=== PATIENT | female | born 1955 | race Caucasian/White ===

== ENCOUNTER 2020-07-21 16:20 | Outpatient (REF) | payer MEDICARE, BC, SELFPAY ==
[2020-07-21 17:34] LABS: Iron 128 mcg/dL (30-160); Percent Iron Saturation 38 % (15-50); Total Iron Binding Capacity 336 mcg/dL (228-428); Unsaturated Iron Binding 208 ug/dL
[2020-07-21 17:55] LABS: Ferritin 19 ng/mL (10-250); Vitamin D 25-OH Total 36.5 ng/mL (>30)
[2020-07-21 18:25] LABS: Folate > 20.0 ng/mL (> or = 4.0); Vitamin B12 560 pg/mL (200-900)
[2020-07-23 13:57] LABS: Immunoglobulin A 286 mg/dL (70-320)
[2020-07-23 15:26] LABS: Zinc 67 mcg/dL (60-130)
[2020-07-24 21:27] LABS: Transglutaminase Ab IgG 3 U/mL; Transglutaminase IgA 25 U/mL
[2020-07-25 13:06] LABS: Vitamin A 58 mcg/dL (38-98)
[2020-07-25 14:41] LABS: Gliadin Deamidated IgA Ab >100 Units; Gliadin Deamidated IgG Ab 94 Units
[2020-07-26 12:51] LABS: Vitamin B6 29.7 ng/mL (2.1-21.7)
[2020-07-26 14:02] LABS: Vitamin B1 20 nmol/L (8-30)
[2020-07-29 13:21] LABS: Endomysial IgA Antibody Positive (Negative)
[2020-07-29 13:47] LABS: Endomysial Titer 1:10 titer (<1:5)
[2020-07-30 22:32] LABS: Vitamin K1 191 pg/mL (130-1500)
== END 2020-07-21 16:21 | disposition home or self-care (01) ==
LOC: HO.LAB 16:20
PROVIDERS: PCP Internal Medicine; Visit Provider Internal Medicine Gastroenterology
DX: R19.7 Diarrhea, unspecified (principal)
CPT/HCPCS: 36415; 82306; 82607; 82728; 82746; 82784; 83516; 83540; 84207; 84425; 84590; 84597; 84630; 86255; 86256

== ENCOUNTER → 2020-07-22 08:54 | Outpatient (BNVA) | payer MEDICARE, BC, SELFPAY | PROVIDERS: PCP Internal Medicine; Referring Provider Internal Medicine; Visit Provider Internal Medicine Gastroenterology | DX: R19.7 Diarrhea, unspecified (principal); K90.0 Celiac disease; M81.8 Other osteoporosis without current pathological fracture; Z79.899 Other long term (current) drug therapy | CPT/HCPCS: 99212 ==

== ENCOUNTER 2020-07-25 10:48 | Outpatient (REF) | payer MEDICARE, BC, SELFPAY ==
[2020-07-25 12:28] LABS: Glucose Urine UA NEG (NEG); Leukocyte Esterase Urine NEG (NEG); Nitrite Urine NEG (NEG); PH 5.5 (5.0-8.0); Specific Gravity - Urine 1.025 (1.005-1.025); Urine Blood TRACE (NEG); Urine Ketones NEG (NEG); Urine Protein NEG (NEG-TRACE)
[2020-07-25 12:30] LABS: Appearance Urine CLEAR; Color Urine YELLOW
[2020-07-25 12:37] LABS: Alanine Aminotransferase 29 U/L (0-31); Albumin Level 4.2 g/dL (3.5-5.0); Alkaline Phosphatase 106 U/L (39-117); Anion Gap 14 (12-20); Aspartate Amino Transferase 28 U/L (5-31); Blood Urea Nitrogen 15 mg/dL (9-16); Calcium 9.1 mg/dL (8.4-10.2); Carbon Dioxide 29 mmol/L (22-29); Chloride 103 mmol/L (96-108); Cholesterol 195 mg/dL; Estimated Glomerular Filt Rate > 60; Glucose Random 100 mg/dL (60-115); HDL Cholesterol 69 mg/dL; LDL Cholesterol Calculated 115 mg/dl; Potassium 5.1 mmol/l (3.3-5.1); Sodium 141 mmol/L (135-145); Total Protein 7.3 g/dL (6.5-8.0); Triglycerides 56 mg/dL
[2020-07-25 12:41] LABS: RBC Urine 0 /HPF (0); Squamous Epithelial Cell Urine TRACE /LPF; WBC Urine 0 /HPF (0-4)
[2020-07-25 12:57] LABS: TSH reflex Free T4 2.02 mIU/mL (0.32-4.0)
[2020-07-25 13:02] LABS: Bilirubin Total < 0.2 mg/dL (0.0-1.0)
== END 2020-07-25 10:49 | disposition home or self-care (01) ==
LOC: HO.LAB 10:48
PROVIDERS: PCP Internal Medicine; Visit Provider Internal Medicine
DX: E78.00 Pure hypercholesterolemia, unspecified (principal); E66.9 Obesity, unspecified; R35.0 Frequency of micturition
CPT/HCPCS: 80053; 80061; 81001; 84443

== ENCOUNTER 2020-08-18 12:47 | Outpatient (REF) | payer MEDICARE, BC, SELFPAY ==
--- NOTE | 2020-08-18 12:51 | MM_ITS ---
EXAMINATION: BONE DENSITOMETRY CLINICAL INDICATION: Other osteoporosis without current pathological fracture. COMPARISON: None (current study represents initial baseline exam). TECHNIQUE: Using a [employer] DXA System (software version: 13.1) manufactured by [employer], dual-energy x-ray absorptiometry was performed of the lumbar spine and left hip. The images are of good technical quality. Summary results are attached. FINDINGS: AP SPINE L1-L4: BMD 1.194 g/cm2, Z-score 0.9, T-score 0.1, normal. LEFT FEMUR, NECK: BMD 0.843 g/cm2, Z-score -0.4, T-score -1.4, osteopenia. LEFT FEMUR, TOTAL: BMD 1.029 g/cm2, Z-score 0.8, T-score 0.2, normal. IDENTIFIED RISK FACTORS: Secondary osteoporosis, menopause, hysterectomy, bilateral oophorectomy. HISTORY OF FRACTURE: None listed. MEDICATIONS: Calcium supplements or multivitamin, vitamin D. MM/XR DEXA axial skeleton IMPRESSION: 1. DIAGNOSIS: Osteopenia based on the lowest T-score value of -1.4 in the femoral neck applying World Health Organization criteria. 2. 10-YEAR FRACTURE RISK PREDICTION, FRAX: Major osteoporotic fracture (clinical spine, forearm, hip or shoulder) 7.8%. Hip fracture 0.7%. 3. Treatment Recommendations: NOF guidelines recommend consideration for treatment in postmenopausal women and men age 50 and older presenting with the following: -A hip or vertebral (clinical or morphometric) fracture. -T-score less than or equal to -2.5 at the femoral neck or spine after appropriate evaluation to exclude secondary causes. -Low bone mass at the hip or spine and a 10-year fracture probability by FRAX of greater than or equal to 3% for hip fracture or greater than or equal to 20% for major osteoporotic fracture based on the [place] adapted WHO algorithm. 4. Other Recommendations: All treatment decisions require clinical judgment and consideration of individual patient factors, including patient preferences, comorbidities, previous drug use, risk factors not captured in the FRAX model (e.g. frailty, falls, vitamin D deficiency, increased bone turnover, interval significant decline in bone density) and possible under or overestimation of fracture risk by FRAX. Additional medical evaluation for secondary cause of low bone mineral density may be appropriate. FUTURE SCAN RECOMMENDATION: People with diagnosed cases of osteoporosis or at high risk for fracture should have regular bone mineral density tests. For patients eligible for Medicare, routine testing is allowed once every 2 years. The testing frequency can be increased to one year for patients who have rapidly progressing disease, those who are receiving or discontinuing medical therapy to restore bone mass, or have additional risk factors.
[2020-08-18 15:20] LABS: Alanine Aminotransferase 22 U/L (0-31); Alkaline Phosphatase 104 U/L (39-117); Anion Gap 13 (12-20); Aspartate Amino Transferase 22 U/L (5-31); Bilirubin Total 0.4 mg/dL (0.0-1.0); Blood Urea Nitrogen 8 mg/dL (9-16); Calcium 8.7 mg/dL (8.4-10.2); Carbon Dioxide 32 mmol/L (22-29); Chloride 101 mmol/L (96-108); Cholesterol 206 mg/dL; Estimated Glomerular Filt Rate > 60; Glucose Fasting 78 mg/dL (60-99); HDL Cholesterol 78 mg/dL; LDL Cholesterol Calculated 114 mg/dl; Potassium 4.6 mmol/l (3.3-5.1); Sodium 141 mmol/L (135-145); Total Protein 6.9 g/dL (6.5-8.0); Triglycerides 70 mg/dL
== END 2020-08-18 12:48 | disposition home or self-care (01) ==
LOC: HO.MAMMO 12:47
PROVIDERS: PCP Internal Medicine; Visit Provider Internal Medicine
DX: M81.8 Other osteoporosis without current pathological fracture (principal); E78.00 Pure hypercholesterolemia, unspecified; Z78.0 Asymptomatic menopausal state
CPT/HCPCS: 77080; 80053; 80061

== ENCOUNTER → 2020-11-01 14:07 | Outpatient (BNVA) | payer MEDICARE, BC, SELFPAY | PROVIDERS: PCP Internal Medicine; Visit Provider Internal Medicine Gastroenterology | DX: K90.0 Celiac disease (principal) | CPT/HCPCS: Q3014 ==

== ENCOUNTER 2020-12-26 11:05 | Outpatient (REF) | payer MEDICARE, BC, SELFPAY ==
--- NOTE | ~2020-12-26 | MM_ITS ---
EXAMINATION: MM SCREENING DIGITAL BREAST TOMOSYNTHESIS, BILATERAL CLINICAL INFORMATION: Screening. Asymptomatic. The lifetime risk of breast cancer based on the Tyrer-Cuzick Model is 6%. COMPARISON: Mammography: 12/21/2019 TECHNIQUE: Digital breast tomosynthesis is performed in both the craniocaudal and mediolateral oblique views along with computer-aided detection (CAD). Synthesized 2D images are generated from the tomosynthesis. FINDINGS: There are scattered areas of fibroglandular density (ACR BI-RADS breast composition Category b). There are no significant masses, abnormal calcifications, or other abnormalities. Parenchymal pattern is similar to prior exam. The skin contours are smooth. MM/MM tomosynthesis screening BI IMPRESSION: No mammographic evidence of malignancy. ASSESSMENT: BI-RADS 1: Negative RECOMMENDATION: Routine annual mammography screening. This patient's information was entered into a reminder system with a target due date for their next mammogram.
== END 2020-12-26 11:06 | disposition home or self-care (01) ==
LOC: HO.MAMMO 11:05
PROVIDERS: Visit Provider Internal Medicine
DX: Z12.31 Encounter for screening mammogram for malignant neoplasm of breast (principal)
CPT/HCPCS: 77063; 77067

== ENCOUNTER → 2021-01-24 14:59 | Outpatient (BNVA) | payer MEDICARE, BC, SELFPAY | PROVIDERS: PCP Internal Medicine; Visit Provider Internal Medicine Gastroenterology | DX: Z13.89 Encounter for screening for other disorder (principal) | CPT/HCPCS: Q3014 ==

== ENCOUNTER 2021-05-27 15:29 | Outpatient (REF) | payer MEDICARE, BC, SELFPAY | END 2021-05-27 15:30 | disposition home or self-care (01) | LOC: HO.LNP 15:29 | PROVIDERS: Visit Provider Physician Assistant | DX: J02.9 Acute pharyngitis, unspecified (principal); Z20.822 Contact with and (suspected) exposure to COVID-19 | CPT/HCPCS: U0003; U0005 ==

== ENCOUNTER 2021-06-09 10:04 | Outpatient (REF) | payer MEDICARE, BC, SELFPAY ==
[2021-06-09 10:59] LABS: MANUAL DIFF FLAG NO
[2021-06-09 11:10] LABS: Basophils Absolute Auto 0.1 X10*3/uL (0.0-0.2); Basophils Percent Auto 0.8 % (0-2); Eosinophils Absolute Auto 0.2 X10*3/uL (0.0-0.4); Hematocrit 39.7 % (37-47); Imm Gran Abs Auto 0.01 X10*3/uL (0.00-0.03); Imm Gran Pct Auto 0.2 % (0.0-0.4); Lymphocytes Absolute Auto 2.3 X10*3/uL (1.2-4.9); Lymphocytes Percent Auto 38.5 % (20-40); Mean Corpuscular HGB Conc 32.7 g/dl (31.0-35.0); Mean Corpuscular Hemoglobin 29.7 pg (27.0-33.0); Mean Corpuscular Volume 90.8 fL (80-98); Mean Platelet Volume 9.5 fL (9.4-12.3); Monocytes Absolute Auto 0.5 X10*3/uL (0.1-1.2); Monocytes Percent Auto 7.7 % (2-11); Neutrophils Percent Auto 49.8 % (45-73); Platelet Count 412 X10*3/uL (160-400); Red Blood Count 4.37 X10*6/uL (4.20-5.50)
[2021-06-09 11:28] LABS: Alanine Aminotransferase 23 U/L (0-31); Albumin Level 4.1 g/dL (3.5-5.0); Alkaline Phosphatase 113 U/L (39-117); Anion Gap 13 (12-20); Aspartate Amino Transferase 30 U/L (5-31); Bilirubin Total 0.3 mg/dL (0.0-1.0); Blood Urea Nitrogen 9 mg/dL (9-16); Calcium 9.4 mg/dL (8.4-10.2); Carbon Dioxide 27 mmol/L (22-29); Chloride 104 mmol/L (96-108); Cholesterol 175 mg/dL; Estimated Glomerular Filt Rate > 60; Glucose Fasting 105 mg/dL (60-99); HDL Cholesterol 65 mg/dL; LDL Cholesterol Calculated 98 mg/dl; Potassium 4.6 mmol/L (3.3-5.1); Sodium 139 mmol/L (135-145); Total Protein 6.9 g/dL (6.5-8.0); Triglycerides 62 mg/dL
[2021-06-09 11:50] LABS: Appearance Urine CLEAR; Color Urine YELLOW; Glucose Urine UA NEG (NEG); Leukocyte Esterase Urine NEG (NEG); Nitrite Urine NEG (NEG); Urine Blood NEG (NEG); Urine Ketones NEG (NEG); Urine Protein NEG (NEG-TRACE)
[2021-06-09 12:18] LABS: Erythrocyte Sedimentation Rate 33 MM/HR (0-20)
[2021-06-14 14:11] LABS: Transglutaminase Ab IgG 1 U/mL; Transglutaminase IgA 5 U/mL
[2021-06-14 16:07] LABS: Gliadin Deamidated IgA Ab 56 Units; Gliadin Deamidated IgG Ab 53 Units
[2021-06-14 22:27] LABS: Endomysial IgA Antibody Negative (Negative)
== END 2021-06-09 10:05 | disposition home or self-care (01) ==
LOC: HO.LAB 10:04
PROVIDERS: Absent Provider Internal Medicine; PCP Internal Medicine; Visit Provider Internal Medicine Gastroenterology
DX: K90.0 Celiac disease (principal); I10 Essential (primary) hypertension; M79.7 Fibromyalgia; K29.70 Gastritis, unspecified, without bleeding; E78.00 Pure hypercholesterolemia, unspecified; E66.9 Obesity, unspecified
CPT/HCPCS: 36415; 80053; 80061; 81003; 83516; 84443; 85025; 85652; 86255; 86256

== ENCOUNTER 2021-06-18 10:49 | Emergency (ER) | payer MEDICARE, BC, SELFPAY ==
--- NOTE | ~2021-06-18 | XR_ITS ---
EXAMINATION: XR ANKLE, LEFT CLINICAL INFORMATION: Pain. COMPARISON: None TECHNIQUE: 4 views of the left ankle. FINDINGS: The ankle mortise and subtalar joints are normal. There is no visible acute fracture, dislocation or lytic process seen. There is moderate size calcaneal heel enthesophyte. There is metallic plate and screws traversing the first tarsometatarsal junction likely for an old healed fracture or fusion. There is moderate lateral malleolar soft tissue swelling. XR/XR ankle LT min 3V IMPRESSION: No acute fracture or dislocation. Moderate lateral malleolar soft tissue swelling suggestive of ligamentous injury.
[2021-06-18 11:05] VITALS: BP 131/59; PULSE 78; RESP 18; TEMP 36.8; O2SAT 99; BMI 38.0
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
== END 2021-06-18 12:40 | disposition home or self-care (01) ==
PROVIDERS: Emergency Provider Emergency Medicine; PCP Internal Medicine
DX: S93.402A Sprain of unspecified ligament of left ankle, initial encounter (principal); M25.572 Pain in left ankle and joints of left foot; X50.1XXA Overexertion from prolonged static or awkward postures, initial encounter; Y93.9 Activity, unspecified; Y92.9 Unspecified place or not applicable; Y99.9 Unspecified external cause status; Z79.899 Other long term (current) drug therapy
CPT/HCPCS: 73610; 99283

== ENCOUNTER → 2021-06-29 10:58 | Outpatient (BNVA) | payer MEDICARE, BC, SELFPAY | PROVIDERS: Visit Provider Physician Assistant | DX: S93.402A Sprain of unspecified ligament of left ankle, initial encounter (principal) | CPT/HCPCS: 99202 ==

== ENCOUNTER → 2021-07-04 10:05 | Outpatient (BNVA) | payer MEDICARE, BC, SELFPAY | PROVIDERS: Visit Provider Internal Medicine Gastroenterology | CPT/HCPCS: Q3014 ==

== ENCOUNTER 2021-08-18 17:12 | Outpatient (REF) | payer MEDICARE, BC, SELFPAY ==
[2021-08-18 18:56] LABS: Influenza A PCR NEGATIVE (Negative); Influenza B PCR NEGATIVE (Negative); Resp Syncy Virus RNA Qual PCR NEGATIVE (Negative); SARS COV2 PCR INHOUSE NEGATIVE (Negative)
== END 2021-08-18 17:13 | disposition home or self-care (01) ==
LOC: HO.LNP 17:12
PROVIDERS: Visit Provider Physician Assistant Medical
DX: Z20.822 Contact with and (suspected) exposure to COVID-19 (principal); J06.9 Acute upper respiratory infection, unspecified
CPT/HCPCS: 0241U

== ENCOUNTER 2021-11-13 14:30 | Outpatient (REF) | payer MEDICARE, BC, SELFPAY ==
--- NOTE | ~2021-11-13 | XR_ITS ---
EXAMINATION: XR SACROILIAC JOINTS CLINICAL INFORMATION: Bilateral SI joint pain. No injury. COMPARISON: None TECHNIQUE: 3 views of the sacroiliac joints FINDINGS: Marked degenerative spondylosis is present in the lower lumbar spine at L5-S1. There is mild osteoarthritis in the SI joints, right greater than left, with marginal osteophytes and subarticular sclerosis. No evidence of sacroiliitis. More minimal osteoarthritis at the hip joints. Pubic symphysis is unremarkable. No fractures. Soft tissues are unremarkable. XR/XR sacroiliac joint 1-2V IMPRESSION: 1. Mild osteoarthritis in the hips. No evidence of sacroiliitis. No acute osseous findings. 2. Marked degenerative spondylosis in the lower lumbar spine.
== END 2021-11-13 14:31 | disposition home or self-care (01) ==
LOC: HO.XRAY 14:30
PROVIDERS: PCP Internal Medicine; Visit Provider Internal Medicine
DX: M51.36 Other intervertebral disc degeneration, lumbar region (principal); M53.3 Sacrococcygeal disorders, not elsewhere classified
CPT/HCPCS: 72200; 99202

== ENCOUNTER → 2021-11-20 09:23 | Outpatient (BNVA) | payer MEDICARE, BC, SELFPAY | PROVIDERS: PCP Internal Medicine; Visit Provider Internal Medicine | DX: Z13.89 Encounter for screening for other disorder (principal) | CPT/HCPCS: Q3014 ==

== ENCOUNTER → 2021-11-24 09:32 | Outpatient (BNVA) | payer MEDICARE, BC, SELFPAY | PROVIDERS: PCP Internal Medicine; Visit Provider Internal Medicine Gastroenterology | DX: Z13.89 Encounter for screening for other disorder (principal) | CPT/HCPCS: Q3014 ==

== ENCOUNTER 2022-01-10 06:38 | Outpatient (REF) | payer MEDICARE, BC, SELFPAY ==
--- NOTE | ~2022-01-10 | FL_ITS ---
EXAMINATION: XR FLUOROSCOPY WITH IMAGES CLINICAL INFORMATION: Sacrococcygeal disorders. COMPARISON: None. TECHNIQUE: Fluoroscopy performed by Eleanor Shukla. Fluoroscopy time: 0.7 minutes DAP: 1.34 Gy-cm2 Images: 4 FINDINGS: There is a needle positioned in the inferior left and right SI joints. No contrast is seen. The SI joints are symmetrical. No bony abnormality. FL/FL guidance in treatment room IMPRESSION: Carpio positioned along the inferior aspect of bilateral SI joints. No visible acute fracture or dislocation seen.
== END 2022-01-10 06:39 | disposition home or self-care (01) ==
LOC: HO.RADIR 06:38
PROVIDERS: Visit Provider Internal Medicine
DX: M53.3 Sacrococcygeal disorders, not elsewhere classified (principal)
CPT/HCPCS: 27096; J1040

== ENCOUNTER 2022-02-02 14:00 | Outpatient (RCR) | payer MEDICARE, BC, SELFPAY ==
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
--- NOTE | 2022-02-02 15:04 | MHC.PT.DC ---
[facility] [place] Office [place] Office [place] Office [address] Ilia Choudhary [address] [phone] F: [phone] F: [phone] F: [phone] F: [phone] Physical Therapy Discharge Report Diagnosis: lumbar region disc disease, sacroccygeal disorder Date of Surgery: n/a Date of Evaluation: 11/23/21 Date of Discharge: 02/02/22 Treatments to Date: 13 Cancellations to Date: 5 No Shows to Date: 0 Discharge Status: Achieved Goals Improved Function Independent with HEP Discharge Summary: Laura has made great progress since beginning PT. She is have much less frequent bouts of pain at this time and has met almost all of her goals. She is very satisfied with her progress as well. She is independent in her HEP and has good compliance with it. She understands the importance of intermission coordinator continuation of the HEP to maintain benefits made thus far. Overall max benefits of PT have been provided and skilled PT is no longer indicated at this time. Pt is in agreement with d/c today. Electronically signed by: Kristina Almazan, PT, DPT, ATC Please sign and return to therapist. Thank you for your referral.
== END 2022-02-02 15:05 | disposition home or self-care (01) ==
LOC: HO.PTCHIC 14:00
PROVIDERS: PCP Internal Medicine; Visit Provider Internal Medicine
DX: M51.36 Other intervertebral disc degeneration, lumbar region (principal); M53.3 Sacrococcygeal disorders, not elsewhere classified
CPT/HCPCS: 97110; 97140; 97162; 97530

== ENCOUNTER → 2022-02-09 08:42 | Outpatient (BNVA) | payer MEDICARE, BC, SELFPAY | PROVIDERS: PCP Internal Medicine; Visit Provider Internal Medicine | DX: M53.3 Sacrococcygeal disorders, not elsewhere classified (principal); M70.61 Trochanteric bursitis, right hip | CPT/HCPCS: Q3014 ==

== ENCOUNTER 2022-02-14 13:23 | Outpatient (REF) | payer MEDICARE, BC, SELFPAY ==
--- NOTE | ~2022-02-14 | MM_ITS ---
EXAMINATION: MM SCREENING DIGITAL BREAST TOMOSYNTHESIS, BILATERAL CLINICAL INFORMATION: Screening. Asymptomatic. The lifetime risk of breast cancer based on the Tyrer-Cuzick Model is 6%. COMPARISON: Mammography: 12/26/2020, 12/21/2019 TECHNIQUE: Digital breast tomosynthesis is performed in both the craniocaudal and mediolateral oblique views along with computer-aided detection (CAD). Synthesized 2D images are generated from the tomosynthesis. FINDINGS: There are scattered areas of fibroglandular density (ACR BI-RADS breast composition Category b). The left breast parenchymal pattern is similar to prior studies. There is no interval mass or architectural abnormality. Neither breast shows abnormal calcifications. The bilateral axilla and skin contours are unremarkable. Right breast has a circumscribed 4 mm nodule periareolar 9:00 position, possibly a cyst. Patient will be recalled for targeted ultrasound. MM/MM tomosynthesis screening BI IMPRESSION: Right: -Circumscribed 4 mm nodule periareolar 9:00 position, possibly a cyst. Left: -No mammographic evidence of malignancy. ASSESSMENT: BI-RADS 0: Incomplete - Need Additional Imaging Evaluation RECOMMENDATION: 1. Targeted ultrasound right breast. 2. Radiology department staff will contact the patient for additional imaging. This patient's information was entered into a reminder system with a target due date for their next mammogram.
== END 2022-02-14 13:24 | disposition home or self-care (01) ==
LOC: HO.MAMMO 13:23
PROVIDERS: Visit Provider Internal Medicine
DX: Z12.31 Encounter for screening mammogram for malignant neoplasm of breast (principal)
CPT/HCPCS: 77063; 77067

== ENCOUNTER 2022-02-22 12:43 | Outpatient (REF) | payer MEDICARE, BC, SELFPAY ==
--- NOTE | ~2022-02-22 | US_ITS ---
EXAMINATION: US DIAGNOSTIC ULTRASOUND BREAST, RIGHT CLINICAL INFORMATION: Recall from screening for circumscribed 4 mm periareolar nodule 9:00 right breast. COMPARISON: Mammography 02/14/2022, 12/26/2020. TECHNIQUE: Ultrasound right breast is performed targeted to the lateral subareolar/periareolar region. Grayscale imaging and color Doppler are performed without and with harmonics. FINDINGS: There is incidental cyst 4 x 3 mm 9:00 periareolar region corresponding to the finding on mammography. There is increased through-transmission of sound. No associated color flow. There is no solid mass or architectural abnormality or focal duct ectasia. Results are discussed with the patient at time of visit. US/US breast RT limited IMPRESSION: Small cyst 9:00 periareolar right breast corresponding to finding on mammography. ASSESSMENT: BI-RADS 2: Benign RECOMMENDATION: Routine annual mammography screening. This patient's information was entered into a reminder system with a target due date for their next mammogram.
== END 2022-02-22 12:44 | disposition home or self-care (01) ==
LOC: HO.MAMMO 12:43
PROVIDERS: PCP Internal Medicine; Visit Provider Internal Medicine
DX: N63.15 Unspecified lump in the right breast, overlapping quadrants (principal)
CPT/HCPCS: 76642

== ENCOUNTER 2022-03-10 08:53 | Outpatient (REF) | payer MEDICARE, BC, SELFPAY ==
[2022-03-10 09:36] LABS: Basophils Percent Auto 0.6 % (0-2); Eosinophils Absolute Auto 0.2 X10*3/uL (0.0-0.4); Eosinophils Percent Auto 4.8 % (0-4); Hematocrit 39.2 % (37.0-47.0); Hemoglobin 12.7 g/dl (12.0-16.0); Imm Gran Abs Auto 0.01 X10*3/uL (0.00-0.03); Imm Gran Pct Auto 0.3 % (0.0-0.4); Lymphocytes Absolute Auto 2.4 X10*3/uL (1.2-4.9); MANUAL DIFF FLAG SCAN; Mean Corpuscular HGB Conc 32.4 g/dl (31.0-35.0); Mean Corpuscular Hemoglobin 28.9 pg (27.0-33.0); Mean Corpuscular Volume 89.3 fL (80.0-98.0); Monocytes Absolute Auto 0.3 X10*3/uL (0.1-1.2); Monocytes Percent Auto 7.1 % (2-11); Neutrophils Absolute Auto 0.6 x10*3/uL (2.0-8.3); Neutrophils Percent Auto 18.2 % (45-73); Platelet Count 313 X10*3/uL (160-400); Red Blood Count 4.39 X10*6/uL (4.20-5.50); Red Cell Distribution Width 14.2 % (11.0-16.0); SCAN SMEAR FLAG 1; White Blood Count 3.5 X10*3/uL (4.8-10.8)
[2022-03-10 09:44] LABS: Appearance Urine CLEAR; Color Urine YELLOW; Glucose Urine UA NEG (NEG); Leukocyte Esterase Urine NEG (NEG); Nitrite Urine NEG (NEG); PH 6.5 (5.0-8.0); Urine Blood NEG (NEG); Urine Ketones NEG (NEG); Urine Protein NEG (NEG-TRACE)
[2022-03-10 10:22] LABS: Erythrocyte Sedimentation Rate 28 MM/HR (0-20)
[2022-03-10 10:24] LABS: SLIDE REVIEW VERIFIED
[2022-03-10 10:28] LABS: Alanine Aminotransferase 24 U/L (0-31); Albumin Level 3.9 g/dL (3.5-5.0); Alkaline Phosphatase 106 U/L (39-117); Anion Gap 14 (12-20); Aspartate Amino Transferase 27 U/L (5-31); Bilirubin Total < 0.2 mg/dL (0.0-1.0); Blood Urea Nitrogen 7 mg/dL (9-16); Calcium 9.1 mg/dL (8.4-10.2); Carbon Dioxide 29 mmol/L (22-29); Chloride 105 mmol/L (96-108); Cholesterol 178 mg/dL; Estimated Glomerular Filt Rate > 60; Glucose Fasting 102 mg/dL (60-99); HDL Cholesterol 53 mg/dL; LDL Cholesterol Calculated 113 mg/dl; Potassium 4.2 mmol/L (3.3-5.1); Sodium 144 mmol/L (135-145); Total Protein 7.1 g/dL (6.5-8.0); Triglycerides 61 mg/dL
[2022-03-10 10:46] LABS: TSH reflex Free T4 2.95 uIU/mL (0.32-4.0); Vitamin D 25-OH Total 36.1 ng/mL (>30)
== END 2022-03-10 08:54 | disposition home or self-care (01) ==
LOC: HO.LAB 08:53
PROVIDERS: Absent Provider Internal Medicine; PCP Internal Medicine; Visit Provider Internal Medicine Gastroenterology
DX: M79.7 Fibromyalgia (principal); I10 Essential (primary) hypertension; E55.9 Vitamin D deficiency, unspecified; E78.00 Pure hypercholesterolemia, unspecified
CPT/HCPCS: 36415; 80053; 80061; 81003; 82306; 84443; 85025; 85652

== ENCOUNTER → 2022-03-12 11:10 | Outpatient (BNVA) | payer MEDICARE, BC, SELFPAY | PROVIDERS: PCP Internal Medicine; Visit Provider Internal Medicine Gastroenterology | DX: K90.0 Celiac disease (principal); Z90.49 Acquired absence of other specified parts of digestive tract | CPT/HCPCS: Q3014 ==

== ENCOUNTER 2022-04-04 06:24 | Outpatient (REF) | payer MEDICARE, BC, SELFPAY ==
--- NOTE | ~2022-04-04 | FL_ITS ---
EXAMINATION: XR FLUOROSCOPY WITH IMAGES CLINICAL INFORMATION: M70.61 - Trochanteric bursitis COMPARISON: None. TECHNIQUE: Fluoroscopy performed by pain management physician. Fluoroscopy time: 49 seconds Cumulative dose: 15.03 mGy Images: 3 FINDINGS: There is spinal needle overlying the left greater trochanter and spinal needle overlying the right greater trochanter. There is contrast in the overlying soft tissue planes. No visible vascular or intracapsular communication. FL/FL guidance in treatment room IMPRESSION: Fluoroscopy for pain management procedures.
== END 2022-04-04 06:25 | disposition home or self-care (01) ==
LOC: HO.RADIR 06:24
PROVIDERS: Visit Provider Internal Medicine
DX: M70.61 Trochanteric bursitis, right hip (principal); M70.62 Trochanteric bursitis, left hip
CPT/HCPCS: 20610; J1040

== ENCOUNTER → 2022-05-07 14:14 | Outpatient (BNVA) | payer MEDICARE, BC, SELFPAY | PROVIDERS: PCP Internal Medicine; Visit Provider Internal Medicine | DX: M53.3 Sacrococcygeal disorders, not elsewhere classified (principal) | CPT/HCPCS: 99212 ==

== ENCOUNTER 2022-06-20 06:32 | Outpatient (REF) | payer MEDICARE, BC, SELFPAY ==
--- NOTE | ~2022-06-20 | FL_ITS ---
EXAMINATION: XR FLUOROSCOPY WITH IMAGES CLINICAL INFORMATION: M53.3 - Sacrococcygeal disorders, not elsewhere classified COMPARISON: Radiographs SI joints 11/23/2021 TECHNIQUE: Fluoroscopy performed by Dr. Julio Weaver. Fluoroscopy time: 0.4 minutes. Cumulative Dose: 7.76 mGy. DAP: 0.552 Gy-cm2. Images: 4. FINDINGS: There are spinal needles overlying the lower left and mid to lower right SI joints. The lateral views show the needle tips to be at the level of the joint. There are mild degenerative changes as noted on prior plain films. FL/FL guidance in treatment room IMPRESSION: Fluoroscopy for pain management procedure.
== END 2022-06-20 06:33 | disposition home or self-care (01) ==
LOC: HO.RADIR 06:32
PROVIDERS: Visit Provider Internal Medicine
DX: M53.3 Sacrococcygeal disorders, not elsewhere classified (principal)
CPT/HCPCS: 27096; J1020; J1040

== ENCOUNTER → 2022-07-20 09:20 | Outpatient (BNVA) | payer MEDICARE, BC, SELFPAY | PROVIDERS: PCP Internal Medicine; Visit Provider Internal Medicine | DX: M53.3 Sacrococcygeal disorders, not elsewhere classified (principal) | CPT/HCPCS: Q3014 ==

== ENCOUNTER 2022-08-20 10:44 | Outpatient (REF) | payer MEDICARE, BC, SELFPAY ==
[2022-08-20 12:23] LABS: Alanine Aminotransferase 30 U/L (0-31); Albumin Level 4.2 g/dL (3.5-5.0); Alkaline Phosphatase 109 U/L (39-117); Anion Gap 17 (12-20); Aspartate Amino Transferase 25 U/L (5-31); Bilirubin Total 0.3 mg/dL (0.0-1.0); Blood Urea Nitrogen 12 mg/dL (9-16); Calcium 9.2 mg/dL (8.4-10.2); Carbon Dioxide 27 mmol/L (22-29); Chloride 103 mmol/L (96-108); Cholesterol 196 mg/dL; Estimated Glomerular Filt Rate > 60; Glucose Fasting 85 mg/dL (60-99); HDL Cholesterol 71 mg/dL; LDL Cholesterol Calculated 112 mg/dl; Potassium 4.5 mmol/L (3.3-5.1); Sodium 142 mmol/L (135-145); Total Protein 7.2 g/dL (6.5-8.0); Triglycerides 67 mg/dL
[2022-08-24 14:07] LABS: Gliadin Deamidated IgA Ab 23.1 U/mL; Gliadin Deamidated IgG Ab 14.4 U/mL; Transglutaminase Ab IgG <1.0 U/mL; Transglutaminase IgA 9.8 U/mL
== END 2022-08-20 10:45 | disposition home or self-care (01) ==
LOC: HO.LAB 10:44
PROVIDERS: Internal Medicine Gastroenterology; PCP Internal Medicine; Visit Provider Internal Medicine
DX: E78.00 Pure hypercholesterolemia, unspecified (principal); K90.0 Celiac disease; R10.33 Periumbilical pain; G89.29 Other chronic pain
CPT/HCPCS: 36415; 80053; 80061; 82306; 86258; 86364

== ENCOUNTER 2022-12-05 12:51 | Outpatient (REF) | payer MEDICARE, BC, SELFPAY ==
--- NOTE | 2022-12-05 | EMG_ITS ---
Please see scanned EMG / Nerve Conduction Report. MTDD
== END 2022-12-05 12:52 | disposition home or self-care (01) ==
LOC: HO.NEURO 12:51
PROVIDERS: PCP Internal Medicine; Visit Provider Internal Medicine
DX: R20.2 Paresthesia of skin (principal)
CPT/HCPCS: 95885; 95913

== ENCOUNTER → 2023-02-04 09:04 | Outpatient (BNVA) | payer MEDICARE, BC, SELFPAY | PROVIDERS: PCP Internal Medicine; Visit Provider Internal Medicine | DX: M53.3 Sacrococcygeal disorders, not elsewhere classified (principal); E78.00 Pure hypercholesterolemia, unspecified | CPT/HCPCS: 36415; 80053; 80061; 99212 ==

== ENCOUNTER 2023-02-04 09:33 | Outpatient (REF) | payer MEDICARE, BC, SELFPAY ==
[2023-02-04 12:42] LABS: Alanine Aminotransferase 22 U/L (0-31); Albumin Level 3.8 g/dL (3.5-5.0); Alkaline Phosphatase 80 U/L (39-117); Anion Gap 13 (12-20); Aspartate Amino Transferase 25 U/L (5-31); Bilirubin Total 0.3 mg/dL (0.0-1.0); Blood Urea Nitrogen 14 mg/dL (9-16); Carbon Dioxide 29 mmol/L (22-29); Chloride 105 mmol/L (96-108); Cholesterol 182 mg/dL; Estimated Glomerular Filt Rate > 60; Glucose Fasting 93 mg/dL (60-99); HDL Cholesterol 69 mg/dL; LDL Cholesterol Calculated 105 mg/dl; Potassium 4.5 mmol/L (3.3-5.1); Sodium 142 mmol/L (135-145); Total Protein 6.5 g/dL (6.5-8.0); Triglycerides 42 mg/dL
== END 2023-02-04 09:34 | disposition home or self-care (01) ==
LOC: HO.LAB 09:33
PROVIDERS: PCP Internal Medicine; Visit Provider Internal Medicine
DX: Z13.89 Encounter for screening for other disorder (principal)
CPT/HCPCS: 36415; 80053; 80061

== ENCOUNTER 2023-02-20 05:56 | Outpatient (REF) | payer MEDICARE, BC, SELFPAY ==
--- NOTE | ~2023-02-20 | FL_ITS ---
EXAMINATION: XR FLUOROSCOPY WITH IMAGES CLINICAL INFORMATION: M53.3 - Sacrococcygeal disorders, not elsewhere classified COMPARISON: Radiographs SI joints 11/13/2021. TECHNIQUE: Fluoroscopy Supervised By: Dr. Julio Weaver. Fluoroscopy Time: 0.2 minutes. Cumulative Dose: 4.46 mGy. DAP: 0.488 Gycm2. Images: 4. FINDINGS: There is a spinal needle overlying the mid to lower left SI joint and a spinal needle overlying the lower right SI joint. Lateral view show needle tips at level of the joints. There are degenerative disc changes again seen lumbosacral junction. FL/FL guidance in treatment room IMPRESSION: Fluoroscopy for pain management procedures.
== END 2023-02-20 05:57 | disposition home or self-care (01) ==
LOC: CF 05:56
PROVIDERS: Visit Provider Internal Medicine
DX: M53.3 Sacrococcygeal disorders, not elsewhere classified (principal)
CPT/HCPCS: J1040; J2795; Q9965

== ENCOUNTER 2023-02-20 07:25 | Outpatient (REF) | payer MEDICARE, BC, SELFPAY ==
--- NOTE | ~2023-02-20 | MM_ITS ---
EXAMINATION: MM SCREENING DIGITAL BREAST TOMOSYNTHESIS, BILATERAL CLINICAL INFORMATION: Screening. Asymptomatic. The lifetime risk of breast cancer based on the Tyrer-Cuzick Model is 4.1%. COMPARISON: Mammography: 02/22/2022 and studies dating back to 12/21/2019. TECHNIQUE: Digital breast tomosynthesis is performed in both the craniocaudal and mediolateral oblique views along with computer-aided detection (CAD). Synthesized 2D images are generated from the tomosynthesis. FINDINGS: There are scattered areas of fibroglandular density (ACR BI-RADS breast composition Category b). There are no new significant masses, abnormal calcifications, or other abnormalities. There is waxing and waning of some circumscribed densities about the right breast with ultrasound previously demonstrating one of these to represent a cyst and the other circumscribed densities also likely represent cysts. No new abnormal dominant mass or suspicious grouping of microcalcifications identified. MM/MM tomosynthesis screening BI IMPRESSION: No significant change. ASSESSMENT: BI-RADS 2: Benign. RECOMMENDATION: Routine annual mammography screening. This patient's information was entered into a reminder system with a target due date for their next mammogram.
== END 2023-02-20 07:26 | disposition home or self-care (01) ==
LOC: HO.MAMMO 07:25
PROVIDERS: PCP Internal Medicine; Visit Provider Internal Medicine
DX: Z12.31 Encounter for screening mammogram for malignant neoplasm of breast (principal); M53.3 Sacrococcygeal disorders, not elsewhere classified
CPT/HCPCS: 27096; 77063; 77067; J1040; J2795; Q9965

== ENCOUNTER → 2023-04-05 10:14 | Outpatient (BNVA) | payer MEDICARE, BC, SELFPAY | PROVIDERS: PCP Internal Medicine; Visit Provider Internal Medicine | DX: M79.18 Myalgia, other site (principal); M53.3 Sacrococcygeal disorders, not elsewhere classified; M43.16 Spondylolisthesis, lumbar region; M51.36 Other intervertebral disc degeneration, lumbar region | CPT/HCPCS: 20553; 99212; J2795 ==

== ENCOUNTER 2023-05-09 18:05 | Outpatient (REF) | payer MEDICARE, BC, SELFPAY ==
--- NOTE | ~2023-05-09 | MR_ITS ---
EXAMINATION: MR LUMBAR SPINE WITHOUT CONTRAST CLINICAL INFORMATION: Disc degeneration COMPARISON: MRI lumbar spine 09/24/2019 TECHNIQUE: MRI of the lumbar spine was obtained using routine sequences without contrast. FINDINGS: Normal lumbar lordosis is preserved. Stable 6 mm grade 1-2 anterolisthesis at L5-S1 and mild grade 1 anterolisthesis at L4-L5. Severely attenuated bilateral L5 pars interarticularis with suspected chronic pars defects that would be better assessed on CT. Vertebral body heights are maintained. There is no suspicious osseous lesion. Stable severe disc height loss at L5-S1 with new fluid signal intensity in the disc space with chronic opposing osseous remodeling/Schmorl's nodes and mixed type I and II Modic endplate changes at this level. There is stable mild to moderate L4-L5 and L3-L4 disc height loss .There are multilevel degenerative changes with level by level detail as follows: L1-L2: No spinal canal or neural foraminal stenosis. L2-L3: No spinal canal or neural foraminal stenosis. L3-L4: Shallow annular disc bulge and mild bilateral facet arthrosis. No spinal canal stenosis. Stable minimal right greater than left neural foraminal encroachment.. L4-L5: Uncovered posterior disc with decreased annular disc bulge and resolved broad-based left paracentral disc protrusion. Advanced bilateral facet arthrosis with ligamentum flavum thickening and trace bilateral facet joint effusions. Resolved spinal canal and subarticular show narrowing. Stable mild right greater than left neural foraminal encroachment. L5-S1: Posterior disc material with osteophytic ridging and advanced bilateral facet arthrosis with ligamentum flavum thickening. No spinal canal stenosis. Stable moderate to severe bilateral neural foraminal stenosis with impingement upon the exiting bilateral L5 nerve roots and contact along the extraforaminal segments from lateral disc osteophytes. The conus medullaris terminates at the level of L1. Sacral Tarlov's cysts and/or meningoceles at S2. The distal spinal cord is normal in appearance. No epidural fluid collection, hematoma, or mass. There is mild fatty atrophy of the paraspinal musculature. Colonic diverticulosis. Prominence of the common bile duct up to 8.3 mm with mild prominence of the central intrahepatic bile ducts. Query abrupt cut off of the mid to lower common bile duct versus artifact. The abdominal aorta is of normal contour and caliber. MR/MR lumbar spine wo con IMPRESSION: 1. Stable grade 1-2 anterolisthesis at L5-S1 with suspected bilateral chronic L5 pars interarticularis defects which appeared better evaluated on CT. 2. Interval resolution of broad-based left paracentral disc protrusion at L4-L5 with resolved spinal canal and subarticular zone narrowing. 3. Additional lumbar spondylosis is stable. Notably, with moderate to severe bilateral neural foraminal stenosis at L5-S1 with impingement upon the exiting bilateral L5 nerve roots. 4. Prominence of the common bile duct with mild central intrahepatic bile ductal prominence could be within normal limits if there is a history of prior cholecystectomy. Query abrupt cut off of the mid to lower common bile duct versus artifact; obstructing distal CBD stone or lesion not excluded and can be correlated with LFTs and further assessed with contrast-enhanced MRCP as warranted.
== END 2023-05-09 18:06 | disposition home or self-care (01) ==
LOC: HO.MRI 18:05
PROVIDERS: PCP Internal Medicine; Visit Provider Internal Medicine
DX: M51.36 Other intervertebral disc degeneration, lumbar region (principal)
CPT/HCPCS: 72148

== ENCOUNTER 2023-05-09 18:42 | Outpatient (REF) | payer MEDICARE, BC, SELFPAY ==
--- NOTE | ~2023-05-09 | MR_ITS ---
EXAMINATION: MR BRAIN WITHOUT CONTRAST CLINICAL INFORMATION: Left hand dystonia COMPARISON: None TECHNIQUE: Multiplanar multisequence MR imaging of the brain was obtained without intravenous contrast. FINDINGS: There is no acute infarct on diffusion-weighted imaging. There is no intracranial hemorrhage on iron-sensitive imaging. No extra-axial collection or mass effect/herniation. There are several scattered foci of nonspecific supratentorial white matter T2/FLAIR signal abnormality. No hydrocephalus. The ventricles are normal in morphology and size. The major flow voids at the skull base are preserved. The midline structures are normal. The cerebellar tonsils are normally positioned. The craniocervical junction is normal. Marrow signal is within normal limits. The visualized soft tissues are without significant abnormality. No signal abnormality within the paranasal sinuses or within the mastoid air cells. MR/MR head/brain wo con IMPRESSION: Unremarkable noncontrast MRI of the brain.
== END 2023-05-09 18:43 | disposition home or self-care (01) ==
LOC: HO.MRI 18:42
PROVIDERS: PCP Internal Medicine; Visit Provider Psychiatry & Neurology Neurology
DX: G24.8 Other dystonia (principal)
CPT/HCPCS: 70551; 72148

== ENCOUNTER 2023-06-19 14:17 | Outpatient (AMB) | payer MEDICARE, BC, SELFPAY ==
[2023-06-19 14:26] VITALS: BP 118/72; BMI 35.7
--- NOTE | 2023-06-19 14:26 | A.OFFVIS_ITS ---
Intake Vital Signs 06/19/23 14:26 Height 5 ft 2 in Weight 195 lb BMI 35.7 BP 118/72 Blood Pressure Location Lt brachial Position Sitting Intake Visit Reasons: [facility] Intake Note: Patient here for a subsequent annual wellness visit Medical Records Coder Required: No Accompanied by: Self / Same As Patient Allergies Sulfa (Sulfonamide Antibiotics) [SULFA (SULFONAMIDE ANTIBIOTICS)] Allergy (Severe, Verified 06/19/23 15:30) ANAPHYLAXIS Penicillins [PENICILLINS] Allergy (Mild, Verified 06/19/23 15:30) RASH latex Adverse Reaction (Severe, Verified 06/19/23 15:30) Rash Medication List - Last Reconciled 06/19/23 by Osmany Browning MD albuterol sulfate 90 mcg/actuation 1 inh inhalation QID PRN atorvastatin 10 mg PO DAILY azithromycin For 250 mg dose pack: take 500 mg today (day 1), then 250 mg for 4 days (days 2-5) PO 5 days benzonatate 200 mg PO TID PRN wnitzxokiq-yryjeeb-becdzerd 50-325-40 mg 1 cap PO Q6-8H PRN 30 days fluticasone propionate 50 mcg/actuation 1 spray intranasal DAILY hydrocortisone 2.5% 1 appl topical BID PRN lidocaine 5% 1 patch topical DAILY lorazepam 0.5 mg PO DAILY PRN 30 days metaxalone 800 mg PO TID PRN 30 days olopatadine 0.1% 1 drp ophthalmic (eye) BID PRN prednisone 50 mg PO DAILY 5 days pregabalin 75 mg PO BID 30 days ropinirole 1 mg PO BEDTIME 90 days sumatriptan succinate 100 mg PO DAILY PRN 30 days tramadol 100 mg (2 x 50 mg) PO Q6H PRN 48 days venlafaxine ER 150 mg PO DAILY zolpidem ER 12.5 mg PO BEDTIME PRN 30 days HPI SAWV HPI Details Patient comes in today for her Medicare Annual Wellness Exam States that she currently feels okay Is waiting for Dr. Lanza to schedule her appointment for botox injection - states that he is planning to start her on botox injections into her left arm muscles to help with her arm symptoms (dystonia) She was sent for a brain MRI to r/o a basal ganglia infarct last month - MRI came out unremarkable She is currently still experiencing recurrent low back pain - a lumbar spine MRI done last month showed no new changes in her lumbar spine DDD She denies any headaches or dizziness Denies any chest pains, no SOB No nausea/vomiting, no abdominal pain No change in bowel habits noted IPPE/AWV: c/o of Annual Wellness Visit, subsequent visit. Medical / Social History Reviewed Past Medical History Yes . [facility] of Care / Care Team list updated Yes . Surgical/Hospitalization History Yes . Current Medications (including OTC and supplements) Yes . Family History Yes . Tobacco Control form Yes . AUDIT-C (Alcohol use) form Yes . Illicit drug use in Social History Yes . Current diagnosis of depression? No Appropriate PHQ2/PHQ9 completed Yes . Data entered by Instructional Services Librarian and reviewed by provider Home Safety Throw rugs? No Grab bars? No Raised toilet seats? No Working smoke detectors? Yes Working carbon monoxide detectors? Yes Data entered by Instructional Services Librarian and reviewed by provider Activities of Daily Living (ADLs) Difficulty bathing or showering? No Difficulty dressing? No Difficulty using the toilet? No Difficulty getting in and out of bed? No Difficulty walking? No Receives help from another person with any of the above tasks? No Instrumental Activities of Daily Living (IADLs) Uses the telephone without help Gets to places out of walking distance without help Goes shopping for groceries without help Prepares own meals without help Does own minor home maintenance without help Does own laundry without help Does own housework without help Manages own money without help Currently takes medications? Yes Takes medication without help End-of-Life Planning Discussed advance directive Yes Advance directive on file Discussed wishes expressed in advance directive agreed to following patient's wishes Fall Risk: Fall History Have you had any falls with injury in the past year? No . Have you had two or more falls in the past year? No . Fall Risk Assessment: No falls in the past year . HRA filled out by the patient, reviewed by Provider and scanned. [facility] Medical History Sacroiliac dysfunction Migraine Burn injury Sinusitis chronic, frontal Osteopenia Obesity (BMI 30-39.9) Major depression, recurrent Insomnia Primary osteoarthritis Urinary frequency Mitral valve prolapse Allergic rhinitis Gastritis Pure hypercholesterolemia Restless leg syndrome Cervicalgia Lumbar degenerative disc disease Fibromyalgia Surgical History History of carpal tunnel release History of bunionectomy S/P GINGER-BSO (total abdominal hysterectomy and bilateral salpingo-oophorectomy) History of repair of rotator cuff History of arthroscopy of both knees History of hysterectomy Hx of cholecystectomy Hx of endoscopy History of colonoscopy Family History Father History of cancer Mother History of cancer History of high blood pressure Hx of diabetes mellitus Social History Household Members Other:: DAUGHTER AND HER FAMILY Housing: House Alcohol intake: current Alcohol intake frequency: a few times a week Patient Tobacco Use Status: Never used Tobacco e-Cigarette/Vaping Use: Never Used Second Hand Smoke Exposure: Yes service: No Current occupational status: retired Cognitive needs: No Hearing needs: No Vision needs: Yes Questionnaire Medicare Wellness Checkup [age] What gender do you identify with?: female During the past 4 weeks, how much have you been bothered by emotional problems such as feeling anxious, depressed, irritable, sad or downhearted, and blue?: slightly During the past 4 weeks, has your physical & emotional health limited your social activities with family, friends, neighbors, or groups?: not at all During the past 4 weeks, how much bodily pain have you generally had?: moderate pain During the past 4 weeks, was someone available to help you if you needed & wanted help?: yes, some During the past 4 weeks, what was the hardest physical activity you could do for at least 2 minutes?: light Can you get to places out of walking distance without help? (For eg., can you travel alone on buses, taxis or drive your car?): Yes Can you go shopping for groceries or clothes without someone's help?: Yes Can you prepare your own meals?: Yes Can you do your housework without help?: Yes Because of any health problems, do you need the help of another person with your personal care needs such as eating, bathing, dressing or getting around the house?: No Can you handle your own money without help?: Yes During the past 4 weeks, how would you rate your health in general?: good During the past 4 weeks how have things been going for you?: pretty well Are you having difficulties driving your car?: no Do you always fasten your seat belt when you are in a car?: yes, usually During past 4 weeks, have you been bothered by the following: never: Sexual problems?, Teeth or denture problems? and Problems using the telephone?, seldom: Falling or dizzy when standing up and Trouble eating well? and sometimes: Tiredness or fatigue? Have you fallen 2 or more times in the past year?: No Are you afraid of falling?: Yes Are you a smoker?: no During the past 4 weeks, how many drinks of wine, beer, or other alcoholic beverages did you have?: 2-5 drinks per week Do you exercise for about 20 minutes 3 or more times a week?: no, I usually do not exercise this much Have you been given information to help with the following?: no: Hazards in your house that might hurt you? and no: Keeping track of your medications? How often do you have trouble taking medicines the way you have been told to take them?: I always take medicine as prescribed How confident are you that you can control & manage most of your health problems?: very confident What is your race?: White Mini Mental State Exam (MMSE) Orientation What is the (year) (season) (date) (day) (month)?: year, season, date, day and month Where are we (state) (county) (town or city) (hospital) (floor)?: state, county, town or city, hospital/clinic and floor Score Score: 10 Activity of Daily Living Bathing - sponge bath, tub bath or shower: receives no assistance (gets in/out by self, if usual bathing means Dressing - getting clothes from closets & drawers, including inner/outer garments & fasteners.: gets clothes & gets completely dressed without help Toileting - going to the 'toilet room' for urine/bowel elimination & cleaning self/arranging clothes: goes to toilet room, cleans self, arranges clothes without help Transfer: moves in & out of bed and chair without help (may use support object) Continence: controls urination/bowel movements completely by self Feeding: feeds self without help Total Score: 0 Information obtained from: patient Using telephone: independent Traveling: independent Shopping: independent Preparing meals: independent Housework: independent Taking medicine: independent Managing money: independent PHQ-9 Over the last 2 weeks, how often have you been bothered by any of the following problems? 1. Little interest or pleasure in doing things: several days 2. Feeling down, depressed, or hopeless: not at all 3. Trouble falling or staying asleep, or sleeping too much: several days 4. Feeling tired or having little energy: several days 5. Poor appetite or overeating: not at all 6. Feeling bad about yourself - or that you are a failure or have let yourself or your family down: not at all 7. Trouble concentrating on things, such as reading the newspaper or watching television: more than half the days 8. Moving or speaking so slowly that other people could have noticed. Or the opposite - being so fidgety or restless that you have been moving around a lot more than usual: not at all 9. Thoughts that you would be better off or of hurting yourself in some way: not at all Total score: 5 Depression Screening Interpretation: Positive Depression Screening Follow-up: Existing condition and In treatment 47920 - PHQ-9 Billing: Yes Source: Developed by Drs. Elroy Roberts, Sunni Amaro, Yadiel Maya and colleagues, with an educational og from [employer]. Review of Systems Const Reports fatigue, Denies fever(s) and Denies headache(s) ENT Denies dysphagia, Denies dizziness, Denies otalgia, Denies headache(s), Reports neck pain, Denies odynophagia and Denies sore throat Card Denies chest pain, Denies palpitations and Denies dyspnea Resp Denies cough and Denies dyspnea GI Denies abdominal pain, Denies constipation, Denies dysphagia, Denies heartburn, Denies diarrhea, Denies nausea, Denies odynophagia and Denies vomiting Denies difficulty voiding, Denies nocturia and Denies dysuria Musc Details: (+) recurrent muscle contracture/torsion of the left hand Reports back pain (chronic), Reports arthralgias (involving multiple joints) and Reports neck pain Neuro Denies dizziness, Denies headache(s), Reports paresthesias (in both hands, on and off) and Reports tremor(s) (on and off in the left hand) Endo Reports fatigue and Denies palpitations Physical Exam Vital Signs: Last Vital Signs BP 118/72 06/19/23 14:26 BMI result Body Mass Index 35.7 IPPE/AWV: Balance Romberg Yes . Tandem walk Yes . Walk and Turn Yes . Rise from sit to stand Yes . Vision Corrective lens No Vision screen pass Hearing Whisper test pass . Urinary incont. no. EKG Not clinically necessary. Const General: no acute distress and alert Orientation/consciousness: patient oriented x3 HEENT Ears: TM's normal bilaterally and EAC's normal Throat: Yes posterior oropharynx normal and Yes tonsils normal (no TP congestion noted) Neck Neck: Yes no lymphadenopathy and Yes tender (over the cervical spine and paraspinal areas bilaterally) Resp Auscultation: clear to auscultation bilaterally, no rales and no wheezes Cardio Rate: regular rate Rhythm: regular rhythm Heart sounds: no murmurs GI Palpation (GI): Soft to palpation, nontender and No hepatosplenomegaly present Back/Spine/Pelvis Thoracic/Lumbar Spine: paraspinal muscle tenderness bilaterally (over the cervical and thoracolumbar spine (diffuse)) and lumbar spinal tenderness Neuro General: patient oriented x3 Cognition (Neuro): normal cognition Extrem General: Yes no clubbing, cyanosis or edema Right upper extremity: shoulder/upper arm Details: tenderness (diffusely over the scapular area) Left upper extremity: shoulder/upper arm Details: tenderness (diffusely over the scapular areas) Psych Mental Status: mental status grossly normal Thought process: Normal thought process present Assessment & Plan Assessment & Plan (1) Medicare annual wellness visit, subsequent: Code(s): Z00.00 - Encounter for general adult medical examination without abnormal findings Plan: HRA form completed and discussed with patient; form will be scanned into patient's chart (2) Fibromyalgia: Code(s): M79.7 - Fibromyalgia Plan: Continue Pregabalin 75 mg BID Encouraged again to continue with regular exercises to help manage her fibromyalgia symptoms better (3) Lumbar degenerative disc disease: Comment: MRI of the lumbar spine done in September 2019 showed grade 1 degenerative anterolisthesis of L4 on L5 and L5 on S1, with severe disc height loss at L5-S1 with endplate changes. Facet arthrosis and degenerative disc changes are seen on multiple levels from L4-S1 Code(s): M51.36 - Other intervertebral disc degeneration, lumbar region Plan: Reinforced activity and weight-lifting restrictions Follow-up with [facility] Pain Management as scheduled Continue Tramadol 50 mg 2 tablets every 6 hours as needed, 30 days, (# 240 tablets) and Lidocaine patch 5% 1 patch for 12 hours daily as needed (4) Cervicalgia: Code(s): M54.2 - Cervicalgia Plan: Follow up with pain management as scheduled for continuing facet injection and pain management (5) Restless leg syndrome: Code(s): G25.81 - Restless legs syndrome Plan: Continue Ropinirole 1 mg Q HS (6) Migraine: Code(s): G43.909 - Migraine, unspecified, not intractable, without status migrainosus Qualifiers: Migraine type: unspecified Status migrainosus presence: without status migrainosus Intractability: not intractable Qualified Code(s): G43.909 - Migraine, unspecified, not intractable, without status migrainosus Plan: Stable - reinforced avoidance of migraine triggers Continue Emgality 120 mg injection once a month Continue Sumatriptan 100 mg once a day as needed and Fiorinal capsules 50-325-40 mg 1 capsule every 6-8 hours as needed Follow-up with neurology as scheduled (7) Pure hypercholesterolemia: Code(s): E78.00 - Pure hypercholesterolemia, unspecified Plan: Reinforced low-cholesterol diet Will recheck labs and fasting lipids for follow-up as scheduled next month (8) Gastritis: Code(s): K29.70 - Gastritis, unspecified, without bleeding Qualifiers: Gastritis type: unspecified gastritis Chronicity: unspecified Gastritis bleeding: without bleeding Qualified Code(s): K29.70 - Gastritis, unspecified, without bleeding Plan: EGD done back in 2019 revealed (+) gastric erythema, duodenal erosion with strictures; biopsies came back negative for malignancies Had repeat EGD with dilation of strictures done a couple of years ago, which showed some improvement in her findings Follow-up with GI as scheduled (9) Celiac disease/sprue: Code(s): K90.0 - Celiac disease Plan: Relates (+) Hx of celiac disease; labs done several months ago still showed the presence of anti-Gliadin and transglutaminase IgA antibodies consistent with celiac disease Reinforced gluten free diet Follow up with GI as scheduled (10) Allergic rhinitis: Code(s): J30.9 - Allergic rhinitis, unspecified Qualifiers: Allergic rhinitis trigger: unspecified Allergic rhinitis seasonality: unspecified Qualified Code(s): J30.9 - Allergic rhinitis, unspecified Plan: Continue Fluticasone 50 mcg nasal spray QD PRN (11) Mitral valve prolapse: Comment: Echocardiogram done in December 2019 showed (+) mild MVP, mild to moderate TR; LV systolic function is low normal with LVEF of around 50-55% Code(s): I34.1 - Nonrheumatic mitral (valve) prolapse Plan: Echocardiogram done in December 2019 showed (+) mild MVP, mild to moderate TR; LV systolic function is low normal with LVEF of around 50-55% Should consider rechecking her echo in a few months for follow up (12) Osteopenia: Code(s): M85.80 - Other specified disorders of bone density and structure, unspecified site Qualifiers: Osteopenia location: unspecified Qualified Code(s): M85.80 - Other specified disorders of bone density and structure, unspecified site Plan: BMD done in 2019) showed (+) osteopenia Patient advised to continue taking vitamin-D and calcium supplements and to try exercising regularly Will continue to monitor BMD every 2-3 years for follow-up - will order at her appt next month for follow up (13) Insomnia: Code(s): G47.00 - Insomnia, unspecified Qualifiers: Insomnia type: unspecified Qualified Code(s): G47.00 - Insomnia, unspecified Plan: Sleep hygiene reinforced Continue Zolpidem ER 12.5 mg once a day at bedtime (14) Major depression, recurrent: Code(s): F33.9 - Major depressive disorder, recurrent, unspecified Qualifiers: Active/Remission status: currently active Major depression episode severity: unspecified Qualified Code(s): F33.9 - Major depressive disorder, recurrent, unspecified Plan: Continue Venlafaxine ER 150 mg once a day (15) Obesity (BMI 30-39.9): Code(s): E66.9 - Obesity, unspecified Plan: Reinforced diet/exercise as tolerated/lose weight Plan Follow up as scheduled next month Quality Reporting (2019) Depression/Bipolar (159/160/161/177) PHQ-9: Total score: 5 Coding Level of Care Code Medicare Subsequent (G0439) Diagnoses Medicare annual wellness visit, subsequent Z00.00 Fibromyalgia M79.7 Lumbar degenerative disc disease M51.36 Cervicalgia M54.2 Restless leg syndrome G25.81 Migraine without status migrainosus, not intractable, unspecified migraine type G43.909 Migraine type: unspecified Status migrainosus presence: without status migrainosus Intractability: not intractable Pure hypercholesterolemia E78.00 Gastritis without bleeding, unspecified chronicity, unspecified gastritis type K29.70 Gastritis type: unspecified gastritis Chronicity: unspecified Gastritis bleeding: without bleeding Celiac disease/sprue K90.0 Allergic rhinitis, unspecified seasonality, unspecified trigger J30.9 Allergic rhinitis trigger: unspecified Allergic rhinitis seasonality: unspecified Mitral valve prolapse I34.1 Osteopenia, unspecified location M85.80 Osteopenia location: unspecified Insomnia, unspecified type G47.00 Insomnia type: unspecified Episode of recurrent major depressive disorder, unspecified depression episode severity F33.9 Active/Remission status: currently active Major depression episode severity: unspecified Obesity (BMI 30-39.9) E66.9
== END 2023-06-19 15:30 | disposition home or self-care (01) ==
PROVIDERS: PCP Internal Medicine; Visit Provider Internal Medicine
DX: Z00.00 Encounter for general adult medical examination without abnormal findings (principal); G43.909 Migraine, unspecified, not intractable, without status migrainosus; F33.9 Major depressive disorder, recurrent, unspecified; M79.7 Fibromyalgia; M51.36 Other intervertebral disc degeneration, lumbar region; M54.2 Cervicalgia; G25.81 Restless legs syndrome; E78.00 Pure hypercholesterolemia, unspecified; K29.70 Gastritis, unspecified, without bleeding; K90.0 Celiac disease; J30.9 Allergic rhinitis, unspecified; I34.1 Nonrheumatic mitral (valve) prolapse
CPT/HCPCS: G0439

== ENCOUNTER 2023-07-01 08:21 | Outpatient (REF) | payer MEDICARE, BC, SELFPAY ==
--- NOTE | ~2023-07-01 | XR_ITS ---
EXAMINATION: XR LUMBOSACRAL SPINE WITH OBLIQUES CLINICAL INFORMATION: Spondylolisthesis lumbar region COMPARISON: MRI lumbar spine 05/09/2023 [facility]. TECHNIQUE: 7 total views were obtained including AP, both oblique, and lateral views of the lumbar spine. Lateral view of the lumbosacral junction. FINDINGS: Surgical clips right upper quadrant of the abdomen. Facet arthritis in the lower lumbar spine. Degenerative changes in the imaged lower thoracic spine. Multilevel lumbar spondylosis. Severe degenerative changes at L5-S1 with obliteration of the joint space and subchondral sclerosis. Moderate to marked loss of disc space height at L4-L5 with degenerative changes. Mild loss of disc space height at L3-L4. Redemonstration of grade 1-2 anterolisthesis of L5 on S1 and mild grade 1 anterolisthesis of L4 on L5. XR/XR lumbar spine 6V w bending IMPRESSION: Multilevel degenerative changes advanced at L4-L5 and L5-S1. As previously noted appearance is concerning for spondylolysis at L5, which may better evaluated with CT scan.
[2023-07-01 09:28] LABS: MANUAL DIFF FLAG NO
[2023-07-01 09:51] LABS: Basophils Absolute Auto 0.1 X10*3/uL (0.0-0.2); Eosinophils Absolute Auto 0.3 X10*3/uL (0.0-0.4); Eosinophils Percent Auto 4.1 % (0-4); Hematocrit 41.8 % (37.0-47.0); Hemoglobin 13.6 g/dl (12.0-16.0); Imm Gran Abs Auto 0.01 X10*3/uL (0.00-0.03); Imm Gran Pct Auto 0.2 % (0.0-0.4); Lymphocytes Absolute Auto 3.1 X10*3/uL (1.2-4.9); Lymphocytes Percent Auto 49.9 % (20-40); Mean Corpuscular HGB Conc 32.5 g/dl (31.0-35.0); Mean Corpuscular Hemoglobin 30.6 pg (27.0-33.0); Mean Corpuscular Volume 93.9 fL (80.0-98.0); Mean Platelet Volume 9.6 fL (9.4-12.3); Monocytes Absolute Auto 0.4 X10*3/uL (0.1-1.2); Monocytes Percent Auto 7.2 % (2-11); Neutrophils Absolute Auto 2.3 x10*3/uL (2.0-8.3); Neutrophils Percent Auto 37.6 % (45-73); Platelet Count 350 X10*3/uL (160-400); Red Blood Count 4.45 X10*6/uL (4.20-5.50); Red Cell Distribution Width 13.2 % (11.0-16.0); White Blood Count 6.1 X10*3/uL (4.8-10.8)
[2023-07-01 10:39] LABS: Alanine Aminotransferase 41 U/L (0-31); Albumin Level 4.4 g/dL (3.5-5.0); Alkaline Phosphatase 103 U/L (39-117); Anion Gap 17 (12-20); Aspartate Amino Transferase 35 U/L (5-31); Bilirubin Total 0.3 mg/dL (0.0-1.0); Blood Urea Nitrogen 11 mg/dL (9-16); Calcium 9.6 mg/dL (8.4-10.2); Carbon Dioxide 26 mmol/L (22-29); Chloride 101 mmol/L (96-108); Cholesterol 180 mg/dL (<200); Estimated Glomerular Filt Rate > 60; Glucose Fasting 93 mg/dL (60-99); HDL Cholesterol 70 mg/dL (>40); LDL Cholesterol Calculated 101 mg/dL (<100); Potassium 4.2 mmol/L (3.3-5.1); Sodium 140 mmol/L (135-145); Total Protein 7.7 g/dL (6.5-8.0); Triglycerides 47 mg/dL (<150)
[2023-07-01 10:58] LABS: TSH reflex Free T4 3.81 uIU/mL (0.32-4.0); Vitamin D 25-OH Total 57.8 ng/mL (>30)
[2023-07-01 12:11] LABS: Appearance Urine Clear; Color Urine Yellow; Glucose Urine UA Negative (Negative); Leukocyte Esterase Urine Trace (Negative); Nitrite Urine Negative (Negative); PH 5.5 (5.0-9.0); UMIC TRIGGER UACC YES; Urine Blood Negative (Negative); Urine Ketones Negative (Negative); Urine Protein Negative (Neg-Trace)
[2023-07-01 12:15] LABS: Bacteria Urine Trace (None Seen); Hyaline Casts Urine 0-2 /LPF (0-2); RBC Urine 0-2 /HPF (0-2); Squamous Epithelial Cell Urine 0-2 /HPF (0-2); WBC Urine 0-5 /HPF (0-5)
== END 2023-07-01 08:22 | disposition home or self-care (01) ==
LOC: HO.LAB 08:21
PROVIDERS: PCP Internal Medicine; Referring Provider Internal Medicine; Visit Provider Internal Medicine
DX: M43.16 Spondylolisthesis, lumbar region (principal); M79.18 Myalgia, other site; M51.36 Other intervertebral disc degeneration, lumbar region; I10 Essential (primary) hypertension; E78.00 Pure hypercholesterolemia, unspecified; E55.9 Vitamin D deficiency, unspecified
CPT/HCPCS: 20553; 36415; 72114; 80053; 80061; 81001; 81003; 82306; 84443; 85025; 99212

== ENCOUNTER 2023-07-01 08:21 | Outpatient (AMB) | payer MEDICARE, BC, SELFPAY ==
--- NOTE | 2023-07-01 08:24 | A.OFFVIS_ITS ---
Intake Vital Signs 07/01/23 08:26 Height 5 ft 2 in Weight 197 lb BMI 36.0 Blood Pressure Location Rt brachial Position Sitting Respiration 14 Pulse 83 Pulse Source Pulse Oximeter Pulse Oximetry (%) 97 Oxygen Delivery Method Room Air Intake Visit Reasons: MRI results Allergies Sulfa (Sulfonamide Antibiotics) [SULFA (SULFONAMIDE ANTIBIOTICS)] Allergy (Severe, Verified 07/01/23 08:29) ANAPHYLAXIS Penicillins [PENICILLINS] Allergy (Mild, Verified 07/01/23 08:29) RASH latex Adverse Reaction (Severe, Verified 07/01/23 08:29) Rash Medication List - Last Reconciled 07/01/23 by Bhakti Avila, DIOGO atorvastatin 10 mg PO DAILY idhqszyyyp-cacpizj-jhzfphtc 50-325-40 mg 1 cap PO Q6-8H PRN 30 days fluticasone propionate 50 mcg/actuation 1 spray intranasal DAILY hydrocortisone 2.5% 1 appl topical BID PRN lidocaine 5% 1 patch topical DAILY lorazepam 0.5 mg PO DAILY PRN 30 days metaxalone 800 mg PO TID PRN 30 days olopatadine 0.1% 1 drp ophthalmic (eye) BID PRN pregabalin 75 mg PO BID 30 days ropinirole 1 mg PO BEDTIME 90 days sumatriptan succinate 100 mg PO DAILY PRN 30 days tramadol 100 mg (2 x 50 mg) PO Q6H PRN 48 days venlafaxine ER 150 mg PO DAILY zolpidem ER 12.5 mg PO BEDTIME PRN 30 days HPI MRI results HPI Details 67-year-old female who presents today to the office for a review of MRI report. She reports that her back is bothersome. She states that she is unable to stand up after waking up at morning. She has difficulty squatting down in bathroom. She has tried cortisone injection in the past with minimal benefits. She has not completed x-rays of the lumbar spine to rule out dynamic instability. Past Procedures: 04/05/23: Trigger point injections: 50% relief for 3 weeks 02/20/23: Sacroiliac Joint Injection, Bi lateral: 80% relief. 06/20/22: Bilateral Intraarticular SIJ In jection (Depo 20mg each side) ? 80% relief for about 5 months. 04/04/22: GTB Injection ? 70% relief. 01/10/22: Bilateral Intra-articular SIJ In jection ? 60% relief for three months. [facility] Medical History (Updated 07/01/23 @ 11:44 by Julio Weaver MD) Sacroiliac dysfunction Migraine Burn injury Sinusitis chronic, frontal Osteopenia Obesity (BMI 30-39.9) Major depression, recurrent Insomnia Primary osteoarthritis Urinary frequency Mitral valve prolapse Allergic rhinitis Gastritis Pure hypercholesterolemia Restless leg syndrome Cervicalgia Lumbar degenerative disc disease Fibromyalgia Surgical History History of carpal tunnel release History of bunionectomy S/P GINGER-BSO (total abdominal hysterectomy and bilateral salpingo-oophorectomy) History of repair of rotator cuff History of arthroscopy of both knees History of hysterectomy Hx of cholecystectomy Hx of endoscopy History of colonoscopy Family History Father History of cancer Mother History of cancer History of high blood pressure Hx of diabetes mellitus Social History Household Members Other:: DAUGHTER AND HER FAMILY Housing: House Alcohol intake: current Alcohol intake frequency: a few times a week Patient Tobacco Use Status: Never used Tobacco e-Cigarette/Vaping Use: Never Used Second Hand Smoke Exposure: Yes service: No Current occupational status: retired Cognitive needs: No Hearing needs: No Vision needs: Yes Review of Systems Const All systems reviewed & are unremarkable except as noted in HPI and below Physical Exam Vital Signs: Last Vital Signs Pulse 83 07/01/23 08:26 Resp 14 07/01/23 08:26 Pulse Ox 97 07/01/23 08:26 Oxygen Delivery Method Room Air 07/01/23 08:26 BMI result Body Mass Index 36.0 General: Appears afebrile. Alert and oriented. Mood and affect appropriate. Follows and participates in conversation appropriately. Respiratory effort is unlabored. Able to transition from sit to stand unassisted. Ambulates with bilaterally normal heel strike and toe off. Office Procedures Injection Trigger Point Multi Pre-procedure diagnosis: Myofascial pain Post-procedure diagnosis: Myofascial pain Site and number of trigger points: bilateral trapezius bilateral occipitalis. Solution: Total volume administered 10 ml (0.5% lidocaine +0.25% bupivacaine) The procedure, its benefits, and its risks were explained to the patient and all questions were answered. Prior to the start of the procedure, a ?time out? was performed to confirm correct patient, procedure, and laterality. Trigger points were identified by manual palpation and marked. The skin was cleaned with Chloraprep. A 1.5 inch 25 G needle was used. Each of the trigger points were approximated and elevated in the direction away from the body. Dry needling then took place for five seconds. Approximately 0.5 ml to 1 ml of injectate was delivered to the trigger point followed by dry needling for five seconds. This process was repeated at each trigger point site. The patient tolerated the procedure well. Post-procedure, breath sounds were equal at both sides of the chest. The patient tolerated the procedure well, without complication. The patient denied any numbness, paresthesias, or weakness. Post-procedure vitals were recorded as part of the nursing discharge note in electronic medical record. Following a period of observation, the patient was discharged in stable condition with written discharge instructions. Patient is status post . Patient tolerated procedure well and was discharged home in stable condition with discharge instructions. All questions were answered. Trigger Point Multiple: 86484- Trigger point injection =/>3 Results Reviewed Results Reviewed: 05/09/23: MR LUMBAR SPINE WITHOUT CONTRAST FINDINGS: Normal lumbar lordosis is preserved. Stable 6 mm grade 1-2 anterolisthesis at L5-S1 and mild grade 1 anterolisthesis at L4-L5. Severely attenuated bilateral L5 pars interarticularis with suspected chronic pars defects that would be better assessed on CT. Vertebral body heights are maintained. There is no suspicious osseous lesion. Stable severe disc height loss at L5-S1 with new fluid signal intensity in the disc space with chronic opposing osseous remodeling/Schmorl's nodes and mixed type I and II Modic endplate changes at this level. There is stable mild to moderate L4-L5 and L3-L4 disc height loss. There are multilevel degenerative changes with level by level detail as follows: L1-L2: No spinal canal or neural foraminal stenosis. L2-L3: No spinal canal or neural foraminal stenosis. L3-L4: Shallow annular disc bulge and mild bilateral facet arthrosis. No spinal canal stenosis. Stable minimal right greater than left neural foraminal encroachment.. L4-L5: Uncovered posterior disc with decreased annular disc bulge and resolved broad-based left paracentral disc protrusion. Advanced bilateral facet arthrosis with ligamentum flavum thickening and trace bilateral facet joint effusions. Resolved spinal canal and subarticular show narrowing. Stable mild right greater than left neural foraminal encroachment. L5-S1: Posterior disc material with osteophytic ridging and advanced bilateral facet arthrosis with ligamentum flavum thickening. No spinal canal stenosis. Stable moderate to severe bilateral neural foraminal stenosis with impingement upon the exiting bilateral L5 nerve roots and contact along the extraforaminal segments from lateral disc osteophytes. The conus medullaris terminates at the level of L1. Sacral Tarlov's cysts and/or meningoceles at S2. The distal spinal cord is normal in appearance. No epidural fluid collection, hematoma, or mass. There is mild fatty atrophy of the paraspinal musculature. Colonic diverticulosis. Prominence of the common bile duct up to 8.3 mm with mild prominence of the central intrahepatic bile ducts. Query abrupt cut off of the mid to lower common bile duct versus artifact. The abdominal aorta is of normal contour and caliber. IMPRESSION: 1. Stable grade 1-2 anterolisthesis at L5-S1 with suspected bilateral chronic L5 pars interarticularis defects which appeared better evaluated on CT. 2. Interval resolution of broad-based left paracentral disc protrusion at L4-L5 with resolved spinal canal and subarticular zone narrowing. 3. Additional lumbar spondylosis is stable. Notably, with moderate to severe bilateral neural foraminal stenosis at L5-S1 with impingement upon the exiting bilateral L5 nerve roots. 4. Prominence of the common bile duct with mild central intrahepatic bile ductal prominence could be within normal limits if there is a history of prior cholecystectomy. Query abrupt cut off of the mid to lower common bile duct versus artifact; obstructing distal CBD stone or lesion not excluded and can be correlated with LFTs and further assessed with contrast-enhanced MRCP as warranted. Assessment & Plan Assessment & Plan (1) Spondylolisthesis, lumbar region: Code(s): M43.16 - Spondylolisthesis, lumbar region (2) Myofascial pain: Code(s): M79.18 - Myalgia, other site (3) Lumbar degenerative disc disease: Comment: Grade 1-2 anterolisthesis L5/S1 with moderate to severe bilateral L5 foraminal narrowing Code(s): M51.36 - Other intervertebral disc degeneration, lumbar region Plan Patient is status post trigger point injections today in the office for neck pain. Patient tolerated procedure well and was discharged home in stable condition with discharge instructions. All questions were answered. The patient will follow up in two weeks. Will schedule her for right L5-S1 interlaminar injection for her lumbar radicular symptoms. Discussed the risks and benefits of the procedure with the patient in detail. All questions were answered. The patient is on board with the plan. She also has significant endplate changes in her L5 and S1 inferior/superior endplates respectively and may be a candidate for intercept procedure for vertebrogenic pain. Justification for interventional therapy: ? Patient with average pain > 6/10 ? Patient has exhausted conservative therapy ? Patient unable to tolerate physical therapy due to pain. ? Previous injection provided >50% relief x > [address] Weaver by Sreekanth Hernández, medical office receptionist, on 07/01/2023. I, Dr. Weaver, have personally reviewed and agree with the information entered by the scribe. Coding Level of Care Code Est Pt Level 4 (00779) Diagnoses Spondylolisthesis, lumbar region M43.16 Myofascial pain M79.18 Lumbar degenerative disc disease M51.36 CPT Codes Details - Trigger Point Multiple: 75073- Trigger point injection =/>3 ([id number])
[2023-07-01 08:26] VITALS: PULSE 83; RESP 14; O2SAT 97; BMI 36.0
== END 2023-07-01 09:10 | disposition home or self-care (01) ==
PROVIDERS: PCP Internal Medicine; Visit Provider Internal Medicine
DX: M43.16 Spondylolisthesis, lumbar region (principal); M79.18 Myalgia, other site; M51.36 Other intervertebral disc degeneration, lumbar region
CPT/HCPCS: 20553; 99214

== ENCOUNTER 2023-07-11 11:52 | Outpatient (AMB) | payer MEDICARE, BC, SELFPAY ==
--- NOTE | 2023-07-11 14:01 | MHC.OFFWIV ---
Intake Vital Signs 07/11/23 14:07 Height 5 ft 2 in Weight 195 lb BMI 35.7 BP 110/62 Blood Pressure Location Lt brachial Position Sitting Pulse 92 Pulse Source Pulse Oximeter Temp 96.7 F L Temp Source Temporal Artery Scan Pulse Oximetry (%) 98 Oxygen Delivery Method Room Air Intake Visit Reasons: Est/sinus infection/[id number] Intake Note: Pt is here c/o possible sinus infection. Pt states she has sinus pressure and nasal congestion. Patient Tobacco Use Status: Never used Tobacco Allergies Sulfa (Sulfonamide Antibiotics) [SULFA (SULFONAMIDE ANTIBIOTICS)] Allergy (Severe, Verified 07/11/23 14:01) ANAPHYLAXIS Penicillins [PENICILLINS] Allergy (Mild, Verified 07/11/23 14:01) RASH latex Adverse Reaction (Severe, Verified 07/11/23 14:01) Rash Do you need a note to return to daycare/school/sports/work: No HPI HPI Comments History of Present Illness Details The patient presents to urgent care for evaluation of sinus congestion. She has a history of recurring sinusitis last episode about 6 months ago. She reports that she needs to be on antibiotics for this. She has not ever followed up with an ENT. [facility] Medical History (Updated 07/01/23 @ 11:44 by Julio Weaver MD) Sacroiliac dysfunction Migraine Burn injury Sinusitis chronic, frontal Osteopenia Obesity (BMI 30-39.9) Major depression, recurrent Insomnia Primary osteoarthritis Urinary frequency Mitral valve prolapse Allergic rhinitis Gastritis Pure hypercholesterolemia Restless leg syndrome Cervicalgia Lumbar degenerative disc disease Fibromyalgia Surgical History History of carpal tunnel release History of bunionectomy S/P GINGER-BSO (total abdominal hysterectomy and bilateral salpingo-oophorectomy) History of repair of rotator cuff History of arthroscopy of both knees History of hysterectomy Hx of cholecystectomy Hx of endoscopy History of colonoscopy Family History Father History of cancer Mother History of cancer History of high blood pressure Hx of diabetes mellitus Social History Household Members Other:: DAUGHTER AND HER FAMILY Housing: House Alcohol intake: current Alcohol intake frequency: a few times a week Patient Tobacco Use Status: Never used Tobacco e-Cigarette/Vaping Use: Never Used Second Hand Smoke Exposure: Yes service: No Current occupational status: retired Cognitive needs: No Hearing needs: No Vision needs: Yes Review of Systems Const Reports headache(s) and Denies increased appetite ENT Reports headache(s), Denies disequilibrium, Reports sinus pain and Denies sore throat Card Denies radiating jaw, neck or arm pain and Denies dyspnea Resp Denies hemoptysis and Denies dyspnea Neuro Reports headache(s) and Denies disequilibrium Physical Exam Vital Signs: Last Vital Signs Temp 96.7 F L 07/11/23 14:07 Pulse 92 07/11/23 14:07 BP 110/62 07/11/23 14:07 Pulse Ox 98 07/11/23 14:07 Oxygen Delivery Method Room Air 07/11/23 14:07 BMI result Body Mass Index 35.7 Const General: healthy appearing and no acute distress HEENT Other: Tenderness to palpation over the frontal and maxillary sinuses bilaterally Head: Yes normal to inspection Ears: external ears normal General nose exam: Abnormal mucous membranes and turbinates present and Other nasal findings present (max sinus TTP BL) Mouth: Normal oral and palatal mucosa present Throat: Yes posterior oropharynx normal Chest Chest palpation & inspection: normal inspection of the chest Resp Effort & Inspection: normal respiratory effort and able to speak in complete sentences Assessment & Plan Assessment & Plan (1) Sinusitis: Code(s): J32.9 - Chronic sinusitis, unspecified Plan A/P - Acute Sinusitis I Suspect that there may be a bacterial component to this illness based on symptoms, and so feel that antibiotics is reasonable for this patient. Discussed typical course of illness and supportive measures. Fluids, rest, motrin or tylenol prn fevers/pain. Patient has follow-up with PCP in 2 weeks and I recommend getting a referral to ENT. Medications: New azithromycin For 250 mg dose pack: take 500 mg today (day 1), then 250 mg for 4 days (days 2-5) PO 6 tabs 0RF Coding Level of Care Code Est Pt Level 3 (82067) Diagnoses Sinusitis J32.9
[2023-07-11 14:07] VITALS: BP 110/62; PULSE 92; TEMP 35.9; O2SAT 98; BMI 35.7
== END 2023-07-11 14:45 | disposition home or self-care (01) ==
PROVIDERS: PCP Internal Medicine; Visit Provider Emergency Medicine
DX: J32.9 Chronic sinusitis, unspecified (principal)
CPT/HCPCS: 99213

== ENCOUNTER 2023-07-23 10:40 | Outpatient (AMB) | payer MEDICARE, BC, SELFPAY ==
[2023-07-23 10:44] VITALS: BP 124/82; PULSE 79; O2SAT 94; BMI 36.4
--- NOTE | 2023-07-23 10:44 | MHC.PC.OV ---
Vital Signs 07/23/23 10:44 Height 5 ft 2 in Weight 199 lb 4 oz BMI 36.4 BP 124/82 Blood Pressure Location Lt brachial Position Sitting Pulse 79 Pulse Source Pulse Oximeter Pulse Oximetry (%) 94 Oxygen Delivery Method Room Air Intake Visit Reasons: FOLLOW UP Field Interviewer Required: No Accompanied by: Self / Same As Patient Allergies Sulfa (Sulfonamide Antibiotics) [SULFA (SULFONAMIDE ANTIBIOTICS)] Allergy (Severe, Verified 05/01/24 15:16) ANAPHYLAXIS Penicillins [PENICILLINS] Allergy (Mild, Verified 05/01/24 15:16) RASH latex Adverse Reaction (Severe, Verified 05/01/24 15:16) Rash doxycycline Adverse Reaction (Mild, Verified 05/01/24 15:16) Abdominal Pain Medication List - Last Reconciled 07/23/23 by Osmany Browning MD atorvastatin 10 mg PO DAILY [id number] 50-325-40 mg 1 cap PO Q6-8H PRN 30 days fluticasone propionate 50 mcg/actuation 1 spray intranasal DAILY hydrocortisone 2.5% 1 appl topical BID PRN lidocaine 5% 1 patch topical DAILY lorazepam 0.5 mg PO DAILY PRN 30 days metaxalone 800 mg PO TID PRN 30 days olopatadine 0.1% 1 drp ophthalmic (eye) BID PRN pregabalin 75 mg PO BID 30 days ropinirole 1 mg PO BEDTIME 90 days sumatriptan succinate 100 mg PO DAILY PRN 30 days tramadol 100 mg (2 x 50 mg) PO Q6H PRN 48 days venlafaxine ER 150 mg PO DAILY zolpidem ER 12.5 mg PO BEDTIME PRN 30 days Tobacco use date assessed: 07/23/23 Fall risk assessment: No Falls in past year Last assessed Fall Risk: 07/23/23 Dental Screening Dental Screen Date: 07/23/23 Did you have a dental visit in the last 12 months?: Yes Did you have a dental problem in the last 6 months where you did not have access to dental care?: No Was dental information given to patient?: Patient has dentist HPI FOLLOW UP HPI Details Patient comes in today for her follow up visit States that she went to the walk-in clinic a couple of weeks ago on 07/11/24 for a sinus infection and was prescribed a Z-blake, which she states did not really help with her symptoms She is currently still experiencing increased sinus pressure and pain, bilateral ear pressure and discomfort, sinus congestion and on and off headaches She denies any fever or sore throat Denies any dizziness Denies any chest pains, no increased SOB No nausea/vomiting, no abdominal pain No change in bowel habits noted Still has chronic neck pain and low back pains - states that her current Rx help keep her pain manageable She needs a few of her Rx refilled today She had her follow up labs done a few weeks ago - to discuss her results Would also like to get her flu shot today of possible PFSH Medical History Sacroiliac dysfunction Migraine Burn injury Sinusitis chronic, frontal Osteopenia Obesity (BMI 30-39.9) Major depression, recurrent Insomnia Primary osteoarthritis Urinary frequency Mitral valve prolapse Allergic rhinitis Gastritis Pure hypercholesterolemia Restless leg syndrome Cervicalgia Lumbar degenerative disc disease Fibromyalgia Surgical History History of carpal tunnel release History of bunionectomy S/P GINGER-BSO (total abdominal hysterectomy and bilateral salpingo-oophorectomy) History of repair of rotator cuff History of arthroscopy of both knees History of hysterectomy Hx of cholecystectomy Hx of endoscopy History of colonoscopy Family History Father History of cancer Mother History of cancer History of high blood pressure Hx of diabetes mellitus Social History Household Members Other:: DAUGHTER AND HER FAMILY Housing: House Alcohol intake: current Alcohol intake frequency: a few times a week Patient Tobacco Use Status: Never used Tobacco e-Cigarette/Vaping Use: Never Used Second Hand Smoke Exposure: Yes service: No Current occupational status: retired Cognitive needs: No Hearing needs: No Vision needs: Yes Questionnaire PHQ-9 Over the last 2 weeks, how often have you been bothered by any of the following problems? 1. Little interest or pleasure in doing things: several days 2. Feeling down, depressed, or hopeless: not at all 3. Trouble falling or staying asleep, or sleeping too much: several days 4. Feeling tired or having little energy: several days 5. Poor appetite or overeating: not at all 6. Feeling bad about yourself - or that you are a failure or have let yourself or your family down: not at all 7. Trouble concentrating on things, such as reading the newspaper or watching television: more than half the days 8. Moving or speaking so slowly that other people could have noticed. Or the opposite - being so fidgety or restless that you have been moving around a lot more than usual: not at all 9. Thoughts that you would be better off or of hurting yourself in some way: not at all Total score: 5 Depression Screening Interpretation: Positive Depression Screening Follow-up: Existing condition and In treatment Depression Screening Done: Yes 51577 - PHQ-9 Billing: Yes Source: Developed by Drs. Elroy Roberts, Sunni Amaro, Yadiel Maya and colleagues, with an educational og from [employer] Thrive Questionnaire Date Thrive assessed: 07/23/23 I am a: Patient What is your living situation today?: I have a steady place to live Within the past 12 months, did the food you bought not last and you didn't have the money to get more?: Never true Within the past 12 months, did you worry whether your food would run out before you got money to buy more?: Never true Do you have trouble paying for medicines?: No Do you have trouble getting transportation to medical appointments?: No Do you have trouble paying your heating and electricity bill?: No Do you have trouble taking care of your child, family member or friend?: No Do you have trouble with day-to-day activities such as bathing, preparing meals, shopping, managing finances, etc.?: No Are you currently unemployed and looking for a job?: No Are you interested in more education?: No Please select the resources that you would like help with: None Currently or been in a relationship where the following occur: no concerns reported AUDIT C Alcohol Use Questionnaire (AUDIT-C) 1. How often do you have a drink containing alcohol?: 2-3 times a week 2. How many drinks containing alcohol do you have on a typical day when you are drinking?: 1 or 2 3. How often do you have six or more drinks on one occasion?: Never Total Score: 3 Score Reviewed/Action Taken: Yes PANFILO-7 AMB Questionnaire PANFILO-7 Date PANFILO - 7 assessed: 07/23/23 Feeling nervous, anxious, or on edge: 0 = Not at all Not being able to stop or control worryin = Not at all Worrying too much about different things: 0 = Not at all Trouble relaxin = Not at all Being so restless that it is hard to sit still: 0 = Not at all Becoming easily annoyed or irritable: 0 = Not at all Feeling afraid as if something awful might happen: 0 = Not at all Total PANFILO-7 score (0-4 normal; 5-9 mild; 10-14 moderate; 15-21 severe): 0 Source: Developed by Drs. Elroy Roberts, Sunni Amaro, Yadiel Maya and colleagues, with an educational og from [employer] Review of Systems Const Denies chills, Reports fatigue, Denies fever(s) and Reports headache(s) (on and off) ENT Denies dysphagia, Denies dizziness, Denies otalgia (but (+) ear pressure and discomfort), Reports headache(s) (on and off), Reports nasal congestion, Reports neck pain, Denies odynophagia, Reports sinus pain, Reports sinus pressure and Denies sore throat Card Denies chest pain, Denies palpitations and Denies dyspnea Resp Denies chest congestion, Reports cough (on and off), Denies dyspnea and Denies wheezing GI Denies abdominal pain, Denies constipation, Denies dysphagia, Denies heartburn, Denies diarrhea, Denies nausea, Denies odynophagia and Denies vomiting Denies difficulty voiding, Denies nocturia, Denies dysuria and Denies urinary urgency Musc Details: (+) recurrent muscle contracture/torsion of the left hand Reports back pain (chronic), Reports arthralgias (involving multiple joints) and Reports neck pain Skin/Breast Denies rash Neuro Denies dizziness and Reports headache(s) (on and off) Psych Reports anxiety Endo Reports fatigue and Denies palpitations Aller/Immun Denies wheezing Physical exam (Primary Care) Vital Signs: Last Vital Signs Pulse 79 07/23/23 10:44 BP 124/82 07/23/23 10:44 Pulse Ox 94 07/23/23 10:44 Oxygen Delivery Method Room Air 07/23/23 10:44 BMI result Body Mass Index 36.4 Tobacco/Smoking Status: Tobacco use Status Tobacco use date assessed 07/23/23 07/23/23 10:49 Patient Tobacco Use Status Never used Tobacco 07/23/23 10:49 e-Cigarette/Vaping Use Never Used 07/23/23 10:49 PHQ-9: PHQ-9 Score PHQ-9: Total score 5 01/29/24 14:41 Depression Screening Interpretation: Positive Depression Screening Follow-up: Existing condition and In treatment Thrive Assessment: Date of Thrive Assessment Date Thrive assessed 07/23/23 07/23/23 10:49 Currently or been in a relationship where the following occur: no concerns reported Const General: no acute distress and alert HENMT Ears: TM's normal bilaterally and EAC's normal Face and sinus: Yes sinus tenderness (mild, bilaterally) Throat: Yes posterior oropharynx normal and Yes tonsils normal (no TP congestion noted) Neck Neck: Yes no lymphadenopathy and Yes tender Thyroid: Thyroid normal Resp Auscultation: clear to auscultation bilaterally, no rales and no wheezes Cardio Rate: regular rate Rhythm: regular rhythm Heart sounds: no murmurs GI Palpation (GI): Soft to palpation and nontender Auscultation: normal bowel sounds General: Yes no CVA tenderness Back/Spine/Pelvis Back: no CVA tenderness Cervical Spine: Cervical spine tenderness Thoracic/Lumbar Spine: lumbar spinal tenderness Sacroiliac joints: bilaterally tender to palpation Skin Rashes: no rashes Extrem General: Yes no clubbing, cyanosis or edema Right upper extremity: shoulder/upper arm Details: tenderness Location: of the A-C joint; no swelling Office Procedures Flu Questionnaire Does the patient have a severe egg allergy?: No Does the patient have severe life threatening allergies?: No Does the patient have a fever or illness today?: No Has the patient ever had Guillain-[place] Syndrome?: No Has the patient ever had any past reaction to a flu shot?: No Immunizations flu vacc [id number] 6mos up(PF) 60 mcg(15 mcgx4)/0.5 mL IM syringe Performing Provider: Osmany Browning MD Performing Location: [facility] Administered by: BENJA Corona on 07/23/23 10:55 Dose Route Admin Location Dispensed Lot Number Expiration Date NDC Interface Control Officer 0.5 mL IM Left Deltoid 0.5 mL [id number] 04/05/24 [id number] BT Imaging VIS Given Date VIS Provided VIS Publication Date 07/23/23 Single Vaccine 21 Eligibility Eligibility Date Funding Source Not [facility] Eligible 07/23/23 Private Results Reviewed Results Reviewed: Laboratory Tests 07/01/23 07/01/23 09:25 09:27 WBC 6.1 Hgb 13.6 Hct 41.8 Plt Count 350 Sodium 140 Potassium 4.2 Creatinine 0.68 Estimated GFR > 60 Fasting Glucose 93 Calcium 9.6 D AST 35 H ALT 41 H Triglycerides 47 Cholesterol 180 LDL Cholesterol, Calc 101 H HDL Cholesterol 70 25-OH Vitamin D Total 57.8 TSH 3.81 Ur Specific [place] 1.010 Urine Protein Negative Urine Glucose (UA) Negative Urine Blood Negative Assessment and Plan Assessment & Plan (1) Sinusitis: Code(s): J32.9 - Chronic sinusitis, unspecified Qualifiers: Sinusitis location: other Chronicity: acute Recurrence: not specified as recurrent Qualified Code(s): J01.80 - Other acute sinusitis Plan: Will start patient on Augmentin 875 mg BID x 10 days (2) Pure hypercholesterolemia: Code(s): E78.00 - Pure hypercholesterolemia, unspecified Plan: Results of her labs done a few weeks ago reviewed and discussed with patient Reinforced low cholesterol diet Continue Atorvastatin 10 mg QD Will recheck her labs and fasting lipids in 3 months for follow up (3) Migraine: Code(s): G43.909 - Migraine, unspecified, not intractable, without status migrainosus Qualifiers: Migraine type: unspecified Status migrainosus presence: without status migrainosus Intractability: not intractable Qualified Code(s): G43.909 - Migraine, unspecified, not intractable, without status migrainosus Plan: Stable -? reinforced avoidance of migraine triggers Continue Sumatriptan 100 mg once a day as needed and Fiorinal capsules 50-325-40 mg 1 capsule every 6-8 hours as needed Follow up with neurology as scheduled (4) Mitral valve prolapse: Comment: Echocardiogram done in December 2019 showed (+) mild MVP, mild to moderate TR; LV systolic function is low normal with LVEF of around 50-55% Code(s): I34.1 - Nonrheumatic mitral (valve) prolapse Plan: Follow up with cardiology as scheduled for continuing surveillance (5) Gastritis: Code(s): K29.70 - Gastritis, unspecified, without bleeding Qualifiers: Gastritis type: unspecified gastritis Chronicity: unspecified Gastritis bleeding: without bleeding Qualified Code(s): K29.70 - Gastritis, unspecified, without bleeding Plan: EGD done in 2019 revealed (+) gastric erythema, duodenal erosion with strictures; biopsies came back negative for malignancies Had repeat EGD? with dilation of strictures done a couple of years ago Follow-up with GI as scheduled (6) Celiac disease/sprue: Code(s): K90.0 - Celiac disease Plan: Relates (+) Hx of celiac disease; labs done last year still showed the presence of anti-Gliadin and transglutaminase IgA antibodies consistent with celiac disease Reinforced strict compliance with a gluten free diet Follow up with GI as scheduled (7) Allergic rhinitis: Code(s): J30.9 - Allergic rhinitis, unspecified Qualifiers: Allergic rhinitis trigger: unspecified Allergic rhinitis seasonality: unspecified Qualified Code(s): J30.9 - Allergic rhinitis, unspecified Plan: Continue Fluticasone 50 mcg nasal spray QD PRN (8) Fibromyalgia: Code(s): M79.7 - Fibromyalgia Plan: Continue Lyrica 75 mg twice a day She is encouraged again to continue with regular exercises to help manage her fibromyalgia symptoms better (9) Lumbar degenerative disc disease: Comment: Grade 1-2 anterolisthesis L5/S1 with moderate to severe bilateral L5 foraminal narrowing Code(s): M51.36 - Other intervertebral disc degeneration, lumbar region Plan: Reinforced activity and weight-lifting restrictions She was going to [facility] for facet injections and pain management in the past but is now seeing [facility] Pain Management Continue Tramadol 50 mg 2 tablets every 6 hours as needed, Lidocaine patch 5% 1 patch for 12 hours daily as needed and Metaxalone 800 mg TID PRN (10) Cervicalgia: Code(s): M54.2 - Cervicalgia Plan: Follow up with [facility] pain management as scheduled (11) Primary osteoarthritis: Code(s): M19.91 - Primary osteoarthritis, unspecified site Qualifiers: Osteoarthritis location: unspecified site Qualified Code(s): M19.91 - Primary osteoarthritis, unspecified site Plan: Continue OTC Tylenol PRN for pain; Tramadol also helps She was taking NSAIDs in the past but was advised to stop when she was diagnosed with gastritis (12) Restless leg syndrome: Code(s): G25.81 - Restless legs syndrome Plan: Continue Ropinirole 0.5 mg Q HS - symptoms have been well-controlled on her current Rx (13) Insomnia: Code(s): G47.00 - Insomnia, unspecified Qualifiers: Insomnia type: unspecified Qualified Code(s): G47.00 - Insomnia, unspecified Plan: Sleep hygiene reinforced Continue Zolpidem ER 12.5 mg Q HS PRN (14) Major depression, recurrent: Code(s): F33.9 - Major depressive disorder, recurrent, unspecified Qualifiers: Active/Remission status: currently active Major depression episode severity: unspecified Qualified Code(s): F33.9 - Major depressive disorder, recurrent, unspecified Plan: Continue Venlafaxine ER 150 mg QD (15) Obesity (BMI 30-39.9): Code(s): E66.9 - Obesity, unspecified Plan: Reinforced diet; exercise and weight loss are unrealistic expectations at present due to patient's numerous physical issues and comorbidities Plan Flu vaccine given today Follow up in 3 months Orders: Orders Influenza [id number] Immunization 07/23/23 Z23 - Encounter for immunization Complete Blood Count Auto Diff 3 Months I10 - Essential (primary) hypertension Comprehensive [place]. Panel Fast 3 Months E78.00 - Pure hypercholesterolemia, unspecified Lipid Panel 3 Months E78.00 - Pure hypercholesterolemia, unspecified Medications: Changed From amoxicillin-pot clavulanate 875-125 mg 1 tab PO BID 10 days 20 tabs 0RF To amoxicillin-pot clavulanate 875-125 mg 1 tab PO BID 20 tabs 0RF 10 days Refilled tramadol 100 mg (2 x 50 mg) PO Q6H PRN 240 tabs 0RF pain 48 days M19.91 - Primary osteoarthritis, unspecified site sumatriptan succinate 100 mg PO DAILY PRN 10 tabs 3RF migraine headache 30 days Coding Level of Care Code Est Pt Level 4 (21813) Diagnoses Other acute sinusitis, recurrence not specified J01.80 Sinusitis location: other Chronicity: acute Recurrence: not specified as recurrent Pure hypercholesterolemia E78.00 Migraine without status migrainosus, not intractable, unspecified migraine type G43.909 Migraine type: unspecified Status migrainosus presence: without status migrainosus Intractability: not intractable Mitral valve prolapse I34.1 Gastritis without bleeding, unspecified chronicity, unspecified gastritis type K29.70 Gastritis type: unspecified gastritis Chronicity: unspecified Gastritis bleeding: without bleeding Celiac disease/sprue K90.0 Allergic rhinitis, unspecified seasonality, unspecified trigger J30.9 Allergic rhinitis trigger: unspecified Allergic rhinitis seasonality: unspecified Fibromyalgia M79.7 Lumbar degenerative disc disease M51.36 Cervicalgia M54.2 Primary osteoarthritis, unspecified site M19.91 Osteoarthritis location: unspecified site Restless leg syndrome G25.81 Insomnia, unspecified type G47.00 Insomnia type: unspecified Episode of recurrent major depressive disorder, unspecified depression episode severity F33.9 Active/Remission status: currently active Major depression episode severity: unspecified Obesity (BMI 30-39.9) E66.9
== END 2023-07-23 11:42 | disposition home or self-care (01) ==
PROVIDERS: Visit Provider Internal Medicine
DX: J01.80 Other acute sinusitis (principal); E78.00 Pure hypercholesterolemia, unspecified; G43.909 Migraine, unspecified, not intractable, without status migrainosus; I34.1 Nonrheumatic mitral (valve) prolapse; K29.70 Gastritis, unspecified, without bleeding; K90.0 Celiac disease; J30.9 Allergic rhinitis, unspecified; M79.7 Fibromyalgia; M51.36 Other intervertebral disc degeneration, lumbar region; E66.9 Obesity, unspecified; F33.9 Major depressive disorder, recurrent, unspecified; M19.91 Primary osteoarthritis, unspecified site; M54.2 Cervicalgia; G25.81 Restless legs syndrome; G47.00 Insomnia, unspecified
CPT/HCPCS: 90471; 90686; 99214

== ENCOUNTER 2023-07-24 06:05 | Outpatient (REF) | payer MEDICARE, BC, SELFPAY ==
--- NOTE | ~2023-07-24 | FL_ITS ---
EXAMINATION: XR FLUOROSCOPY WITH IMAGES CLINICAL INFORMATION: Other intervertebral disc degeneration, lumbar region. COMPARISON: None available. TECHNIQUE: Fluoroscopy Supervised By: Dr. Julio Weaver. Fluoroscopy Time: 0.5 minutes. Cumulative Dose: 14.8 mGy. DAP: 1.27 Gycm2. Images: 2. FINDINGS: Images demonstrate needle placement and contrast injection over the central and right L5 vertebrae FL/FL guidance in treatment room IMPRESSION: Fluoroscopy guidance for pain management procedure
== END 2023-07-24 06:06 | disposition home or self-care (01) ==
LOC: CF 06:05
PROVIDERS: Visit Provider Internal Medicine
DX: M51.36 Other intervertebral disc degeneration, lumbar region (principal); M54.16 Radiculopathy, lumbar region
CPT/HCPCS: 62323; J1040; J1100

== ENCOUNTER 2023-07-24 08:02 | Outpatient (AMB) | payer MEDICARE, BC, SELFPAY ==
--- NOTE | 2023-07-24 09:15 | A.OFFVIS_ITS ---
Intake Vital Signs 07/24/23 09:16 07/24/23 09:16 BP 110/62 122/70 Blood Pressure Location Lt brachial Lt brachial Position Sitting Sitting Respiration 14 14 Pulse 83 77 Pulse Source Pulse Oximeter Pulse Oximeter Pulse Oximetry (%) 94 94 Oxygen Delivery Method Room Air Room Air Intake Visit Reasons: right L5-S1 interlaminar ROSY Allergies Sulfa (Sulfonamide Antibiotics) [SULFA (SULFONAMIDE ANTIBIOTICS)] Allergy (Severe, Verified 07/23/23 11:29) ANAPHYLAXIS Penicillins [PENICILLINS] Allergy (Mild, Verified 07/23/23 11:29) RASH latex Adverse Reaction (Severe, Verified 07/23/23 11:29) Rash HPI right L5-S1 interlaminar ROSY HPI Details Patient presents for scheduled procedure. Denies any recent cough, cold, infection, fever or other significant changes in medical history since last office visit. [facility] Medical History (Updated 07/24/23 @ 11:18 by Julio Weaver MD) Sacroiliac dysfunction Migraine Burn injury Sinusitis chronic, frontal Osteopenia Obesity (BMI 30-39.9) Major depression, recurrent Insomnia Primary osteoarthritis Urinary frequency Mitral valve prolapse Allergic rhinitis Gastritis Pure hypercholesterolemia Restless leg syndrome Cervicalgia Lumbar degenerative disc disease Fibromyalgia Surgical History History of carpal tunnel release History of bunionectomy S/P GINGER-BSO (total abdominal hysterectomy and bilateral salpingo-oophorectomy) History of repair of rotator cuff History of arthroscopy of both knees History of hysterectomy Hx of cholecystectomy Hx of endoscopy History of colonoscopy Family History Father History of cancer Mother History of cancer History of high blood pressure Hx of diabetes mellitus Social History Household Members Other:: DAUGHTER AND HER FAMILY Housing: House Alcohol intake: current Alcohol intake frequency: a few times a week Patient Tobacco Use Status: Never used Tobacco e-Cigarette/Vaping Use: Never Used Second Hand Smoke Exposure: Yes service: No Current occupational status: retired Cognitive needs: No Hearing needs: No Vision needs: Yes Physical Exam Vital Signs: Last Vital Signs Pulse 77 07/24/23 09:16 Resp 14 07/24/23 09:16 BP 122/70 07/24/23 09:16 Pulse Ox 94 07/24/23 09:16 Oxygen Delivery Method Room Air 07/24/23 09:16 Office Procedures Joint Injection/Drain Joint Injection/Drain Details: Interlaminar epidural steroid injection, L5-S1, right parasaggital After obtaining written consent, pre-procedure blood pressure and heart rate were stable and recorded in the nursing record. The patient was placed in the prone position. The lumbosacral area was widely prepped with chloraprep and draped in sterile fashion. Fluoroscopic guidance was used to identify the desired interlaminar space and for needle placement. Subcutaneous 0.5% lidocaine was used to anesthetize the skin overlying the target. A 20-gauge Richards needle was advanced to the epidural space using loss of resistance to contrast technique under fluoroscopic AP and contralateral oblique views. There was no evidence of heme or CSF and no paresthesias were elicited with needle placement. Confirmation of epidural needle placement was performed with 1cc of omnipaque 180. Next 3 ml 0.5% lidocaine mixed with 10 mg dexamethasone was administered epidurally with no pain elicited on injection. The needle tract tubing was then cleared with a stylet. The needle was removed, skin cleansed and a sterile bandage was applied. The patient tolerated the procedure well and no complications were encountered. Following the procedure the patient's vital signs were stable. The patient was discharged home in good condition with post-procedural instructions. Time Out: Immediately prior to the procedure, the following was verbally confirmed that there is a signed consent form and that the correct patient, planned procedure, site and side are consistent with documentation and that nece ssary equipment and/or blood products are available prior to the start of the case. Complications: none EBL: <5 cc Coding 07899 - Caudal/Lumbar Epidural/Interlaminar with fluoroscopy Procedure code (CPT) selection complete Results Reviewed Results Reviewed: 07/24/23 08:29 Lidocaine HCl 2 % MPF [Xylocaine 2 % MPF] 5 ml .ROUTE .STK-MED ONE methylPREDNISolone acetate [DEPO-MedroL] 80 mg .ROUTE .STK-MED ONE 07/24/23 08:30 Lidocaine HCl 2 % MPF [Xylocaine 2 % MPF] 5 ml .ROUTE .STK-MED ONE methylPREDNISolone acetate [DEPO-MedroL] 80 mg .ROUTE .STK-MED ONE Assessment & Plan Assessment & Plan (1) Lumbar radiculopathy: Code(s): M54.16 - Radiculopathy, lumbar region Plan Patient is status post right parasagittal interlaminar L5-S1 ROSY. Patient tolerated procedure well and was discharged home in stable condition with discharge instructions. All questions were answered. We will follow-up via telephone or in clinic to assess response to therapy. A follow-up appointment was made during today's visit. Orders: Orders FL guidance in treatment room Today M51.36 - Other intervertebral disc degeneration, lumbar region Coding Level of Care Code Procedure Only Diagnoses Lumbar radiculopathy M54.16 CPT Codes Coding - Joint 11: 83123 - Caudal/Lumbar Epidural/Interlaminar with fluoroscopy ([id number])
[2023-07-24 09:16] VITALS: BP 110/62; BP 122/70; PULSE 77; PULSE 83; RESP 14; O2SAT 94
== END 2023-07-24 09:04 | disposition home or self-care (01) ==
LOC: HO.PMCPRC 08:02
PROVIDERS: PCP Internal Medicine; Visit Provider Internal Medicine
DX: M54.16 Radiculopathy, lumbar region (principal)
CPT/HCPCS: 62323

== ENCOUNTER 2023-08-23 09:44 | Outpatient (AMB) | payer MEDICARE, BC, SELFPAY ==
[2023-08-23 09:48] VITALS: BP 128/71; PULSE 84; RESP 12; O2SAT 95; BMI 36.4
--- NOTE | 2023-08-23 09:48 | MHC.OFFVIS ---
Intake Vital Signs 08/23/23 09:48 Height 5 ft 2 in Weight 199 lb BMI 36.4 BP 128/71 Blood Pressure Location Lt brachial Position Sitting Respiration 12 Pulse 84 Pulse Source Pulse Oximeter Pulse Oximetry (%) 95 Oxygen Delivery Method Room Air Intake Visit Reasons: s/p right L5-S1 interlaminar ROSY/confirmed Allergies Sulfa (Sulfonamide Antibiotics) [SULFA (SULFONAMIDE ANTIBIOTICS)] Allergy (Severe, Verified 07/23/23 11:29) ANAPHYLAXIS Penicillins [PENICILLINS] Allergy (Mild, Verified 07/23/23 11:29) RASH latex Adverse Reaction (Severe, Verified 07/23/23 11:29) Rash HPI s/p right L5-S1 interlaminar ROSY/confirmed HPI Details 67-year-old female who presents today to the office for a status post right L5-S1 interlaminar ROSY. The patient reports no significant relief following the procedure. She reports a sharp worsening of the midback pain. She describes that her pain radiates alternately on the sides. She denies any radiating pain down to her leg. She has a lot of trouble getting comfortable at night and is unable to sleep. Last week she had episodes where the pain in her lower back work her up from sleep and she found this incredibly frustrating. She has difficulty climbing stairs or walking. She presents today for a bilateral trigger point injection for neck pain. Past Procedures: 07/24/23: Interlaminar epidural steroid injection, L5-S1, right parasaggital: No relief. 04/05/23: Trigger point injections: 50% relief for 3 weeks 02/20/23: Sacroiliac Joint Injection, Bilateral: 80% relief. 06/20/22: Bilateral Intraarticular SIJ Injection (Depo 20mg each side) ? 80% relief for about 5 months. 04/04/22: GTB Injection ? 70% relief. 01/10/22: Bilateral Intra-articular SIJ Injection ? 60% relief for three months. [facility] Medical History (Updated 08/26/23 @ 09:43 by Julio Weaver MD) Sacroiliac dysfunction Migraine Burn injury Sinusitis chronic, frontal Osteopenia Obesity (BMI 30-39.9) Major depression, recurrent Insomnia Primary osteoarthritis Urinary frequency Mitral valve prolapse Allergic rhinitis Gastritis Pure hypercholesterolemia Restless leg syndrome Cervicalgia Lumbar degenerative disc disease Fibromyalgia Surgical History History of carpal tunnel release History of bunionectomy S/P GINGER-BSO (total abdominal hysterectomy and bilateral salpingo-oophorectomy) History of repair of rotator cuff History of arthroscopy of both knees History of hysterectomy Hx of cholecystectomy Hx of endoscopy History of colonoscopy Family History Father History of cancer Mother History of cancer History of high blood pressure Hx of diabetes mellitus Social History Household Members Other:: DAUGHTER AND HER FAMILY Housing: House Alcohol intake: current Alcohol intake frequency: a few times a week Patient Tobacco Use Status: Never used Tobacco e-Cigarette/Vaping Use: Never Used Second Hand Smoke Exposure: Yes service: No Current occupational status: retired Cognitive needs: No Hearing needs: No Vision needs: Yes Review of Systems Const All systems reviewed & are unremarkable except as noted in HPI and below Physical Exam Vital Signs: Last Vital Signs Pulse 84 08/23/23 09:48 Resp 12 08/23/23 09:48 BP 128/71 08/23/23 09:48 Pulse Ox 95 08/23/23 09:48 Oxygen Delivery Method Room Air 08/23/23 09:48 BMI result Body Mass Index 36.4 General: Appears afebrile. Alert and oriented. Mood and affect appropriate. Follows and participates in conversation appropriately. Respiratory effort is unlabored. Able to transition from sit to stand unassisted. Ambulates with bilaterally normal heel strike and toe off. Forward flexion reproduces pain. Extension is not as painful. Office Procedures Injection Trigger Point Multi Pre-procedure diagnosis: Myofascial pain Post-procedure diagnosis: Myofascial pain Site and number of trigger points: Bilateral rhomboids. bilateral trapezius bilateral occipitalis. Bilateral cervical paraspinal Solution: Total volume administered 10 ml (0.5% lidocaine +0.25% bupivacaine) The procedure, its benefits, and its risks were explained to the patient and all questions were answered. Prior to the start of the procedure, a ?time out? was performed to confirm correct patient, procedure, and laterality. Trigger points were identified by manual palpation and marked. The skin was cleaned with Chloraprep. A 1.5 inch 25 G needle was used. Each of the trigger points were approximated and elevated in the direction away from the body. Dry needling then took place for five seconds. Approximately 0.5 ml to 1 ml of injectate was delivered to the trigger point followed by dry needling for five seconds. This process was repeated at each trigger point site. The patient tolerated the procedure well. Post-procedure, breath sounds were equal at both sides of the chest. The patient tolerated the procedure well, without complication. The patient denied any numbness, paresthesias, or weakness. Post-procedure vitals were recorded as part of the nursing discharge note in electronic medical record. Following a period of observation, the patient was discharged in stable condition with written discharge instructions. Patient is status post . Patient tolerated procedure well and was discharged home in stable condition with discharge instructions. All questions were answered. We discussed the lumbar intercept procedure as a possible treatment option. The patient will think about it and inform us if she wants to proceed with the plan. Trigger Point Multiple: 15357- Trigger point injection =/>3 Results Reviewed Results Reviewed: 05/09/23: MR LUMBAR SPINE WITHOUT CONTRAST FINDINGS: Normal lumbar lordosis is preserved. Stable 6 mm grade 1-2 anterolisthesis at L5-S1 and mild grade 1 anterolisthesis at L4-L5. Severely attenuated bilateral L5 pars interarticularis with suspected chronic pars defects that would be better assessed on CT. Vertebral body heights are maintained. There is no suspicious osseous lesion. Stable severe disc height loss at L5-S1 with new fluid signal intensity in the disc space with chronic opposing osseous remodeling/Schmorl's nodes and mixed type I and II Modic endplate changes at this level. There is stable mild to moderate L4-L5 and L3-L4 disc height loss. There are multilevel degenerative changes with level by level detail as follows: L1-L2: No spinal canal or neural foraminal stenosis. L2-L3: No spinal canal or neural foraminal stenosis. L3-L4: Shallow annular disc bulge and mild bilateral facet arthrosis. No spinal canal stenosis. Stable minimal right greater than left neural foraminal encroachment.. L4-L5: Uncovered posterior disc with decreased annular disc bulge and resolved broad-based left paracentral disc protrusion. Advanced bilateral facet arthrosis with ligamentum flavum thickening and trace bilateral facet joint effusions. Resolved spinal canal and subarticular show narrowing. Stable mild right greater than left neural foraminal encroachment. L5-S1: Posterior disc material with osteophytic ridging and advanced bilateral facet arthrosis with ligamentum flavum thickening. No spinal canal stenosis. Stable moderate to severe bilateral neural foraminal stenosis with impingement upon the exiting bilateral L5 nerve roots and contact along the extraforaminal segments from lateral disc osteophytes. The conus medullaris terminates at the level of L1. Sacral Tarlov's cysts and/or meningoceles at S2. The distal spinal cord is normal in appearance. No epidural fluid collection, hematoma, or mass. There is mild fatty atrophy of the paraspinal musculature. Colonic diverticulosis. Prominence of the common bile duct up to 8.3 mm with mild prominence of the central intrahepatic bile ducts. Query abrupt cut off of the mid to lower common bile duct versus artifact. The abdominal aorta is of normal contour and caliber. IMPRESSION: 1. Stable grade 1-2 anterolisthesis at L5-S1 with suspected bilateral chronic L5 pars interarticularis defects which appeared better evaluated on CT. 2. Interval resolution of broad-based left paracentral disc protrusion at L4-L5 with resolved spinal canal and subarticular zone narrowing. 3. Additional lumbar spondylosis is stable. Notably, with moderate to severe bilateral neural foraminal stenosis at L5-S1 with impingement upon the exiting bilateral L5 nerve roots. 4. Prominence of the common bile duct with mild central intrahepatic bile ductal prominence could be within normal limits if there is a history of prior cholecystectomy. Query abrupt cut off of the mid to lower common bile duct versus artifact; obstructing distal CBD stone or lesion not excluded and can be correlated with LFTs and further assessed with contrast-enhanced MRCP as warranted. Assessment & Plan Assessment & Plan (1) Vertebrogenic low back pain: Code(s): M54.51 - Vertebrogenic low back pain (2) Spondylolisthesis, lumbar region: Code(s): M43.16 - Spondylolisthesis, lumbar region (3) Myofascial pain: Code(s): M79.18 - Myalgia, other site Plan Patient is status post bilateral trigger point injection for neck pain. Patient tolerated procedure well and was discharged home in stable condition with discharge instructions. All questions were answered. Follow-up for TPI as needed. We discussed the intracept procedure as a possible treatment option for her axial mid back pain that appears to be secondary to a combination of lumbar spondylolisthesis associated with degeneration of the inferior L5 and superior S1 endplates as well as disc degeneration. Will schedule her for a BVN ablation L5 & S1. Discussed the risks and benefits of the procedure with the patient in detail. All questions were answered. The patient is on board with the plan. Justification for interventional therapy: ? Patient with average pain > 6/10 ? Patient has exhausted conservative therapy ? Patient unable to tolerate physical therapy due to pain Scribed for Dr. Weaver by Sreekanth Hernández, medical receptionist assistant, on 08/23/2023. I, Dr. Weaver, have personally reviewed and agree with the information entered by the scribe. Coding Level of Care Code Est Pt Level 4 (18464) Diagnoses Vertebrogenic low back pain M54.51 Spondylolisthesis, lumbar region M43.16 Myofascial pain M79.18 CPT Codes Details - Trigger Point Multiple: 99459- Trigger point injection =/>3 ([id number])
== END 2023-08-23 10:33 | disposition home or self-care (01) ==
PROVIDERS: PCP Internal Medicine; Visit Provider Internal Medicine
DX: M54.51 Vertebrogenic low back pain (principal); M43.16 Spondylolisthesis, lumbar region; M79.18 Myalgia, other site
CPT/HCPCS: 20553; 99214

== ENCOUNTER → 2023-08-23 09:44 | Outpatient (BNVA) | payer MEDICARE, BC, SELFPAY | PROVIDERS: PCP Internal Medicine; Visit Provider Internal Medicine | DX: M79.18 Myalgia, other site (principal); M54.51 Vertebrogenic low back pain; M43.16 Spondylolisthesis, lumbar region | CPT/HCPCS: 20553; 99212; J0665 ==

== ENCOUNTER 2023-09-26 14:59 | Outpatient (AMB) | payer MEDICARE, BC, SELFPAY ==
[2023-09-26 15:00] VITALS: BP 154/78; PULSE 60; TEMP 36.8; O2SAT 97; BMI 37.3
--- NOTE | 2023-09-26 15:00 | MHC.OFFWIV ---
Intake Vital Signs 09/26/23 15:00 Height 5 ft 2 in Weight 204 lb 2 oz BMI 37.3 BP 154/78 H Blood Pressure Location Lt brachial Position Sitting Pulse 60 Pulse Source Pulse Oximeter Temp 98.2 F Temp Source Oral Pulse Oximetry (%) 97 Oxygen Delivery Method Room Air Intake Visit Reasons: EST/white spots on throat(lobby masked) Intake Note: Pt is here today for white spots on throat st Patient Tobacco Use Status: Never used Tobacco Allergies Sulfa (Sulfonamide Antibiotics) [SULFA (SULFONAMIDE ANTIBIOTICS)] Allergy (Severe, Verified 09/26/23 15:01) ANAPHYLAXIS Penicillins [PENICILLINS] Allergy (Mild, Verified 09/26/23 15:01) RASH latex Adverse Reaction (Severe, Verified 09/26/23 15:01) Rash Do you need a note to return to daycare/school/sports/work: No HPI HPI Comments History of Present Illness Details the patient presents to urgent care for evaluation of fullness sensation in her throat not distinctly painful. She looked in her throat today and noticed white spots as questioning strep pharyngitis. No fever PFSH Medical History (Updated 08/26/23 @ 09:43 by Julio Weaver MD) Sacroiliac dysfunction Migraine Burn injury Sinusitis chronic, frontal Osteopenia Obesity (BMI 30-39.9) Major depression, recurrent Insomnia Primary osteoarthritis Urinary frequency Mitral valve prolapse Allergic rhinitis Gastritis Pure hypercholesterolemia Restless leg syndrome Cervicalgia Lumbar degenerative disc disease Fibromyalgia Surgical History History of carpal tunnel release History of bunionectomy S/P GINGER-BSO (total abdominal hysterectomy and bilateral salpingo-oophorectomy) History of repair of rotator cuff History of arthroscopy of both knees History of hysterectomy Hx of cholecystectomy Hx of endoscopy History of colonoscopy Family History Father History of cancer Mother History of cancer History of high blood pressure Hx of diabetes mellitus Social History Household Members Other:: DAUGHTER AND HER FAMILY Housing: House Alcohol intake: current Alcohol intake frequency: a few times a week Patient Tobacco Use Status: Never used Tobacco e-Cigarette/Vaping Use: Never Used Second Hand Smoke Exposure: Yes service: No Current occupational status: retired Cognitive needs: No Hearing needs: No Vision needs: Yes Physical Exam Vital Signs: Last Vital Signs Temp 98.2 F 09/26/23 15:00 Pulse 60 09/26/23 15:00 BP 154/78 H 09/26/23 15:00 Pulse Ox 97 09/26/23 15:00 Oxygen Delivery Method Room Air 09/26/23 15:00 BMI result Body Mass Index 37.3 Const General: healthy appearing and no acute distress Orientation/consciousness: patient oriented x3 HEENT Other: no pharyngeal erythema, left tonsil with tonsillar crypts/ some impacted creating the appearance of white spots on the tonsil Eyes Corneas: corneas normal Pupils: Equal, round and reactive pupils present Chest Chest palpation & inspection: no tenderness Resp Effort & Inspection: normal respiratory effort and able to speak in complete sentences GI Palpation (GI): nontender Neuro General: patient oriented x3 Cranial nerves: Yes Equal, round and reactive pupils present Psych Appearance: grossly normal Attitude: cooperative Assessment & Plan Assessment & Plan (1) Sore throat: Code(s): J02.9 - Acute pharyngitis, unspecified Plan rapid strep test negative. No sign of pharyngitis, patient was informed that the appearance of the tonsils is a normal finding from the tonsillar crypts. Coding Level of Care Code Est Pt Level 3 (64263) Diagnoses Sore throat J02.9
== END 2023-09-26 17:01 | disposition home or self-care (01) ==
PROVIDERS: PCP Internal Medicine; Visit Provider Emergency Medicine
DX: J02.9 Acute pharyngitis, unspecified (principal)
CPT/HCPCS: 87880; 99213

== ENCOUNTER 2023-11-01 14:14 | Outpatient (AMB) | payer MEDICARE, BC, SELFPAY ==
--- NOTE | 2023-11-01 14:18 | MHC.PC.OV ---
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 Accompanied by: Self / Same As Patient Allergies Sulfa (Sulfonamide Antibiotics) [SULFA (SULFONAMIDE ANTIBIOTICS)] Allergy (Severe, Verified 11/01/23 15:17) ANAPHYLAXIS Penicillins [PENICILLINS] Allergy (Mild, Verified 11/01/23 15:17) RASH latex Adverse Reaction (Severe, Verified 11/01/23 15:17) Rash Medication List - Last Reconciled 11/01/23 by Osmany Browning MD atorvastatin 10 mg PO DAILY [id number]-darwsya-wscduuxz 50-325-40 mg 1 cap PO Q6-8H PRN 30 days fluticasone propionate 50 mcg/actuation 1 spray intranasal DAILY hydrocortisone 2.5% 1 appl topical BID PRN lidocaine 5% 1 patch topical DAILY lorazepam 0.5 mg PO DAILY PRN 30 days metaxalone 800 mg PO TID PRN 30 days olopatadine 0.1% 1 drp ophthalmic (eye) BID PRN pregabalin 75 mg PO BID 30 days ropinirole 1 mg PO BEDTIME 90 days sumatriptan succinate 100 mg PO DAILY PRN 30 days tramadol 100 mg (2 x 50 mg) PO Q6H PRN 48 days venlafaxine ER 150 mg PO DAILY zolpidem ER 12.5 mg PO BEDTIME PRN 30 days Tobacco use date assessed: 11/01/23 Fall risk assessment: No Falls in past year Last assessed Fall Risk: 11/01/23 Dental Screening Dental Screen Date: 11/01/23 Did you have a dental visit in the last 12 months?: Yes Did you have a dental problem in the last 6 months where you did not have access to dental care?: No Was dental information given to patient?: Patient has dentist HPI 3 month f/u HPI Details Patient comes in today for her follow up visit States that she feels okay She denies any headaches or dizziness Denies any chest pains, no SOB but is still experiencing some recurrent cough (mostly non-productive) and congestion - states that she's had a cold for over 3 weeks and even taking some Abx prescribed for her at urgent care did not help much States that she uses her Albuterol inhaler PRN, which helps, and is requesting for a refill on this She denies any fever or sore throat No nausea/vomiting, no abdominal pain No change in bowel habits noted She continues to follow up with pain management for her chronic low back pain and has not really responded to all of the injections that she's had over the past couple of years Adds that she has been experiencing increased pain over her right shoulder for a couple of weeks now and sometimes has a hard time raising her arm She denies any recent injury or trauma to her shoulder Has not had her follow up labs done prior to her appointment today as she states that she has been sick for a while lately and did not go get them done [facility] Medical History Sacroiliac dysfunction Migraine Burn injury Sinusitis chronic, frontal Osteopenia Obesity (BMI 30-39.9) Major depression, recurrent Insomnia Primary osteoarthritis Urinary frequency Mitral valve prolapse Allergic rhinitis Gastritis Pure hypercholesterolemia Restless leg syndrome Cervicalgia Lumbar degenerative disc disease Fibromyalgia Surgical History History of carpal tunnel release History of bunionectomy S/P GINGER-BSO (total abdominal hysterectomy and bilateral salpingo-oophorectomy) History of repair of rotator cuff History of arthroscopy of both knees History of hysterectomy Hx of cholecystectomy Hx of endoscopy History of colonoscopy Family History Father History of cancer Mother History of cancer History of high blood pressure Hx of diabetes mellitus Social History Household Members Other:: DAUGHTER AND HER FAMILY Housing: House Alcohol intake: current Alcohol intake frequency: a few times a week Patient Tobacco Use Status: Never used Tobacco e-Cigarette/Vaping Use: Never Used Second Hand Smoke Exposure: Yes service: No Current occupational status: retired Cognitive needs: No Hearing needs: No Vision needs: Yes Questionnaire PHQ-9 Over the last 2 weeks, how often have you been bothered by any of the following problems? 1. Little interest or pleasure in doing things: several days 2. Feeling down, depressed, or hopeless: not at all 3. Trouble falling or staying asleep, or sleeping too much: several days 4. Feeling tired or having little energy: several days 5. Poor appetite or overeating: not at all 6. Feeling bad about yourself - or that you are a failure or have let yourself or your family down: not at all 7. Trouble concentrating on things, such as reading the newspaper or watching television: more than half the days 8. Moving or speaking so slowly that other people could have noticed. Or the opposite - being so fidgety or restless that you have been moving around a lot more than usual: not at all 9. Thoughts that you would be better off or of hurting yourself in some way: not at all Total score: 5 Depression Screening Interpretation: Positive Depression Screening Follow-up: Existing condition and In treatment Depression Screening Done: Yes 14453 - PHQ-9 Billing: Yes Source: Developed by Drs. Elroy Roberts, Sunni Amaro, Yadiel Maya and colleagues, with an educational og from [employer]. Thrive Questionnaire Date Thrive assessed: 11/01/23 I am a: Patient What is your living situation today?: I have a steady place to live Within the past 12 months, did the food you bought not last and you didn't have the money to get more?: Never true Within the past 12 months, did you worry whether your food would run out before you got money to buy more?: Never true Do you have trouble paying for medicines?: No Do you have trouble getting transportation to medical appointments?: No Do you have trouble paying your heating and electricity bill?: No Do you have trouble taking care of your child, family member or friend?: No Do you have trouble with day-to-day activities such as bathing, preparing meals, shopping, managing finances, etc.?: No Are you currently unemployed and looking for a job?: No Are you interested in more education?: No Please select the resources that you would like help with: None Currently or been in a relationship where the following occur: no concerns reported THRIVE Score: 0 AUDIT C Alcohol Use Questionnaire (AUDIT-C) 1. How often do you have a drink containing alcohol?: 2-3 times a week 2. How many drinks containing alcohol do you have on a typical day when you are drinking?: 1 or 2 3. How often do you have six or more drinks on one occasion?: Never Total Score: 3 Score Reviewed/Action Taken: Yes PANFILO-7 AMB Questionnaire PANFILO-7 Date PANFILO - 7 assessed: 11/01/23 Feeling nervous, anxious, or on edge: 0 = Not at all Not being able to stop or control worryin = Not at all Worrying too much about different things: 0 = Not at all Trouble relaxin = Not at all Being so restless that it is hard to sit still: 0 = Not at all Becoming easily annoyed or irritable: 0 = Not at all Feeling afraid as if something awful might happen: 0 = Not at all Total PANFILO-7 score (0-4 normal; 5-9 mild; 10-14 moderate; 15-21 severe): 0 Source: Developed by Drs. Elroy Roberts, Sunni Amaro, Yadiel Maya and colleagues, with an educational og from [employer]. Review of Systems Const Denies chills, Reports fatigue, Denies fever(s) and Denies headache(s) ENT Denies dysphagia, Denies dizziness, Denies otalgia, Denies headache(s), Reports neck pain, Denies odynophagia and Denies sore throat Card Denies chest pain, Denies palpitations and Denies dyspnea Resp Reports chest congestion (mild), Reports cough (on and off, non-productive (see HPI)), Denies dyspnea and Denies wheezing GI Denies abdominal pain, Denies constipation, Denies dysphagia, Denies heartburn, Denies diarrhea, Denies nausea, Denies odynophagia and Denies vomiting Denies difficulty voiding, Denies nocturia and Denies dysuria Musc Details: (+) recurrent muscle contracture/torsion of the left hand Reports back pain (chronic), Reports arthralgias (involving multiple joints; increased over right shoulder for the past 2 wks) and Reports neck pain Skin/Breast Denies rash Neuro Denies dizziness, Denies headache(s), Reports paresthesias (in both hands, on and off) and Reports tremor(s) (on and off in the left hand) Endo Reports fatigue and Denies palpitations Aller/Immun Denies wheezing Physical exam (Primary Care) Vital Signs: Last Vital Signs Pulse 85 11/01/23 14:19 BP 112/70 11/01/23 14:19 Pulse Ox 97 11/01/23 14:19 Oxygen Delivery Method Room Air 11/01/23 14:19 BMI result Body Mass Index 37.5 Tobacco/Smoking Status: Tobacco use Status Tobacco use date assessed 11/01/23 11/01/23 14:20 Patient Tobacco Use Status Never used Tobacco 11/01/23 14:20 e-Cigarette/Vaping Use Never Used 11/01/23 14:20 PHQ-9: PHQ-9 Score PHQ-9: Total score 5 11/01/23 14:30 Depression Screening Interpretation: Positive Depression Screening Follow-up: Existing condition and In treatment Thrive Assessment: Date of Thrive Assessment Date Thrive assessed 11/01/23 11/01/23 14:20 Currently or been in a relationship where the following occur: no concerns reported Const General: no acute distress and alert HENMT Ears: TM's normal bilaterally and EAC's normal Throat: Yes posterior oropharynx normal and Yes tonsils normal (no TP congestion noted) Neck Neck: Yes no lymphadenopathy and Yes tender Resp Auscultation: no crackles, no rales, rhonchi (occasional) lower bilaterally and no wheezes Cardio Rate: regular rate Rhythm: regular rhythm Heart sounds: no murmurs GI Palpation (GI): Soft to palpation and nontender Auscultation: normal bowel sounds Back/Spine/Pelvis Cervical Spine: Cervical spine tenderness Thoracic/Lumbar Spine: lumbar spinal tenderness Sacroiliac joints: bilaterally tender to palpation Skin Rashes: no rashes Extrem General: Yes no clubbing, cyanosis or edema Right upper extremity: shoulder/upper arm Details: tenderness Location: of the A-C joint; no swelling and wrist Details: tenderness and Phalen's negative Left upper extremity: wrist ((+) mild tenderness - (-) Phalen's) and hand Details: normal to inspection (but (+) tremors noted) Assessment and Plan Assessment & Plan (1) Pure hypercholesterolemia: Code(s): E78.00 - Pure hypercholesterolemia, unspecified Plan: Patient was not able to get her follow up labs done recently as she states that she has been sick with cough and congestion for the past 3 weeks Reinforced low cholesterol diet Continue Atorvastatin 10 mg QD Will recheck her labs and fasting lipids in 3 months for follow up - will just have patient use her current orders (updated) for her next lab draw (2) Migraine: Code(s): G43.909 - Migraine, unspecified, not intractable, without status migrainosus Qualifiers: Migraine type: unspecified Status migrainosus presence: without status migrainosus Intractability: not intractable Qualified Code(s): G43.909 - Migraine, unspecified, not intractable, without status migrainosus Plan: Stable -? reinforced avoidance of migraine triggers Continue Sumatriptan 100 mg once a day as needed and Fiorinal capsules 50-325-40 mg 1 capsule every 6-8 hours as needed Follow up with neurology as scheduled (3) Mitral valve prolapse: Comment: Echocardiogram done in December 2019 showed (+) mild MVP, mild to moderate TR; LV systolic function is low normal with LVEF of around 50-55% Code(s): I34.1 - Nonrheumatic mitral (valve) prolapse Plan: Follow up with cardiology as scheduled for continuing surveillance (4) Gastritis: Code(s): K29.70 - Gastritis, unspecified, without bleeding Qualifiers: Gastritis type: unspecified gastritis Chronicity: unspecified Gastritis bleeding: without bleeding Qualified Code(s): K29.70 - Gastritis, unspecified, without bleeding Plan: EGD done in 2019 revealed (+) gastric erythema, duodenal erosion with strictures; biopsies came back negative for malignancies Had repeat EGD? with dilation of strictures done a couple of years ago Follow-up with GI as scheduled (5) Celiac disease/sprue: Code(s): K90.0 - Celiac disease Plan: Relates (+) Hx of celiac disease; labs done last year still showed the presence of anti-Gliadin and transglutaminase IgA antibodies consistent with celiac disease Reinforced gluten free diet Follow up with GI as scheduled (6) Allergic rhinitis: Code(s): J30.9 - Allergic rhinitis, unspecified Qualifiers: Allergic rhinitis trigger: unspecified Allergic rhinitis seasonality: unspecified Qualified Code(s): J30.9 - Allergic rhinitis, unspecified Plan: Continue Fluticasone 50 mcg nasal spray QD PRN (7) Fibromyalgia: Code(s): M79.7 - Fibromyalgia Plan: Continue Lyrica 75 mg twice a day Encouraged again to continue with regular exercises to help manage her fibromyalgia symptoms better (8) Lumbar degenerative disc disease: Comment: Grade 1-2 anterolisthesis L5/S1 with moderate to severe bilateral L5 foraminal narrowing Code(s): M51.36 - Other intervertebral disc degeneration, lumbar region Plan: Reinforced activity and weight-lifting restrictions Was going to [facility] for facet injections and pain management in the past but is now seeing [facility] Pain Management She has had several injections into her lower back over the past year and did not seem to have responded much to them so far Continue Tramadol 50 mg 2 tablets every 6 hours as needed, Lidocaine patch 5% 1 patch for 12 hours daily as needed and Metaxalone 800 mg TID PRN Follow up with pain management as scheduled (9) Cervicalgia: Code(s): M54.2 - Cervicalgia Plan: Follow up with [facility] pain management as scheduled (10) Primary osteoarthritis: Code(s): M19.91 - Primary osteoarthritis, unspecified site Qualifiers: Osteoarthritis location: unspecified site Qualified Code(s): M19.91 - Primary osteoarthritis, unspecified site Plan: Continue OTC Tylenol PRN for pain; Tramadol also helps Was taking NSAIDs in the past but was advised to stop last year when she was diagnosed with gastritis (11) Paresthesia of hand, bilateral: Code(s): R20.2 - Paresthesia of skin Plan: (+) Hx of CTS Repeat EMG & NCV done last year in December 2022 came out NORMAL (12) Tremor of left hand: Code(s): R25.1 - Tremor, unspecified Plan: Advised that her EMG & NCV from December 2022 came out normal Follow up with neurology as scheduled States that botox injection was originally planned for the dystonia on her upper extremities but she could not afford the co-pay that she's had to pay out of pocket so far (13) Right shoulder pain: Code(s): M25.511 - Pain in right shoulder Qualifiers: Chronicity: unspecified Qualified Code(s): M25.511 - Pain in right shoulder Plan: Discussed that her symptoms are suggestive of bursitis and she may need to either go to PT or see orthopedics Will send her for right shoulder x-rays first for further evaluation (14) Restless leg syndrome: Code(s): G25.81 - Restless legs syndrome Plan: Continue Ropinirole 0.5 mg Q HS - symptoms have been well-controlled on her current Rx (15) Insomnia: Code(s): G47.00 - Insomnia, unspecified Qualifiers: Insomnia type: unspecified Qualified Code(s): G47.00 - Insomnia, unspecified Plan: Sleep hygiene reinforced Continue Zolpidem ER 12.5 mg Q HS PRN (16) Major depression, recurrent: Code(s): F33.9 - Major depressive disorder, recurrent, unspecified Qualifiers: Active/Remission status: currently active Major depression episode severity: unspecified Qualified Code(s): F33.9 - Major depressive disorder, recurrent, unspecified Plan: Continue Venlafaxine ER 150 mg QD (17) Obesity (BMI 30-39.9): Code(s): E66.9 - Obesity, unspecified Plan: Reinforced diet/exercise as tolerated/lose weight Plan Follow up in 3 months Orders: Orders UA CC w/rflx Micro + Cult 01/18/24 R30.0 - Dysuria Vitamin D 25-OH Total 01/18/24 E55.9 - Vitamin D deficiency, unspecified TSH reflex Free T4 01/18/24 E78.00 - Pure hypercholesterolemia, unspecified XR shoulder RT min 2V Today M25.511 - Pain in right shoulder Medications: New albuterol sulfate 90 mcg/actuation (Ventolin HFA) 2 puffs inhalation Q6H 30 days PRN 8.5 grams 1RF shortness of breath or wheezing Coding Level of Care Code Est Pt Level 4 (91494) Diagnoses Pure hypercholesterolemia E78.00 Migraine without status migrainosus, not intractable, unspecified migraine type G43.909 Migraine type: unspecified Status migrainosus presence: without status migrainosus Intractability: not intractable Mitral valve prolapse I34.1 Gastritis without bleeding, unspecified chronicity, unspecified gastritis type K29.70 Gastritis type: unspecified gastritis Chronicity: unspecified Gastritis bleeding: without bleeding Celiac disease/sprue K90.0 Allergic rhinitis, unspecified seasonality, unspecified trigger J30.9 Allergic rhinitis trigger: unspecified Allergic rhinitis seasonality: unspecified Fibromyalgia M79.7 Lumbar degenerative disc disease M51.36 Cervicalgia M54.2 Primary osteoarthritis, unspecified site M19.91 Osteoarthritis location: unspecified site Paresthesia of hand, bilateral R20.2 Tremor of left hand R25.1 Right shoulder pain, unspecified chronicity M25.511 Chronicity: unspecified Restless leg syndrome G25.81 Insomnia, unspecified type G47.00 Insomnia type: unspecified Episode of recurrent major depressive disorder, unspecified depression episode severity F33.9 Active/Remission status: currently active Major depression episode severity: unspecified Obesity (BMI 30-39.9) E66.9
[2023-11-01 14:19] VITALS: BP 112/70; PULSE 85; O2SAT 97; BMI 37.5
== END 2023-11-01 15:34 | disposition home or self-care (01) ==
PROVIDERS: PCP Internal Medicine; Visit Provider Internal Medicine
DX: E78.00 Pure hypercholesterolemia, unspecified (principal); F33.9 Major depressive disorder, recurrent, unspecified; G43.909 Migraine, unspecified, not intractable, without status migrainosus; I34.1 Nonrheumatic mitral (valve) prolapse; K29.70 Gastritis, unspecified, without bleeding; K90.0 Celiac disease; J30.9 Allergic rhinitis, unspecified; M79.7 Fibromyalgia; M51.36 Other intervertebral disc degeneration, lumbar region; M54.2 Cervicalgia; M19.91 Primary osteoarthritis, unspecified site; R20.2 Paresthesia of skin
CPT/HCPCS: 99214

== ENCOUNTER 2023-12-02 08:05 | Outpatient (AMB) | payer MEDICARE, BC, SELFPAY ==
--- NOTE | 2023-12-02 08:14 | A.OFFVIS_ITS ---
Intake Vital Signs 12/02/23 08:16 Height 5 ft 2 in Weight 207 lb BMI 37.9 BP 131/61 Blood Pressure Location Lt brachial Position Sitting Respiration 12 Pulse 83 Pulse Source Pulse Oximeter Pulse Oximetry (%) 96 Oxygen Delivery Method Room Air Intake Visit Reasons: TPI Allergies Sulfa (Sulfonamide Antibiotics) [SULFA (SULFONAMIDE ANTIBIOTICS)] Allergy (Severe, Verified 12/02/23 08:18) ANAPHYLAXIS Penicillins [PENICILLINS] Allergy (Mild, Verified 12/02/23 08:18) RASH latex Adverse Reaction (Severe, Verified 12/02/23 08:18) Rash Medication List - Last Reconciled 12/02/23 by Bhakti Avila LPN albuterol sulfate 90 mcg/actuation (Ventolin HFA) 2 puffs inhalation Q6H PRN 30 days atorvastatin 10 mg PO DAILY vkscmxidxw-uziashk-lxeobsvj 50-325-40 mg 1 cap PO Q6-8H PRN 30 days fluticasone propionate 50 mcg/actuation 1 spray intranasal DAILY hydrocortisone 2.5% 1 appl topical BID PRN lidocaine 5% 1 patch topical DAILY lorazepam 0.5 mg PO DAILY PRN 30 days metaxalone 800 mg PO TID PRN 30 days pregabalin 75 mg PO BID 30 days ropinirole 1 mg PO BEDTIME 90 days sumatriptan succinate 100 mg PO DAILY PRN 30 days venlafaxine ER 150 mg PO DAILY zolpidem ER 12.5 mg PO BEDTIME PRN 30 days HPI TPI HPI Details 68-year-old female who presents today to the office for a trigger point injection. Denies any recent cough, cold, infection, fever or other significant changes in medical history since last office visit. Past Procedures: 08/23/2023: Trigger point injections: 50 % relief. 07/24/23: Interlaminar epidural steroid injection, L5-S1, right parasaggital: No relief. 04/05/23: Trigger point injections: 50% relief for 3 weeks 02/20/23: Sacroiliac Joint Injection, Bi lateral: 80% relief. 06/20/22: Bilateral Intraarticular SIJ In jection (Depo 20mg each side) ? 80% relief for about 5 months. 04/04/22: GTB Injection ? 70% relief. 01/10/22: Bilateral Intra-articular SIJ In jection ? 60% relief for three months. [facility] Medical History Sacroiliac dysfunction Migraine Burn injury Sinusitis chronic, frontal Osteopenia Obesity (BMI 30-39.9) Major depression, recurrent Insomnia Primary osteoarthritis Urinary frequency Mitral valve prolapse Allergic rhinitis Gastritis Pure hypercholesterolemia Restless leg syndrome Cervicalgia Lumbar degenerative disc disease Fibromyalgia Surgical History History of carpal tunnel release History of bunionectomy S/P GINGER-BSO (total abdominal hysterectomy and bilateral salpingo-oophorectomy) History of repair of rotator cuff History of arthroscopy of both knees History of hysterectomy Hx of cholecystectomy Hx of endoscopy History of colonoscopy Family History Father History of cancer Mother History of cancer History of high blood pressure Hx of diabetes mellitus Social History Household Members Other:: DAUGHTER AND HER FAMILY Housing: House Alcohol intake: current Alcohol intake frequency: a few times a week Patient Tobacco Use Status: Never used Tobacco e-Cigarette/Vaping Use: Never Used Second Hand Smoke Exposure: Yes service: No Current occupational status: retired Cognitive needs: No Hearing needs: No Vision needs: Yes Review of Systems Const All systems reviewed & are unremarkable except as noted in HPI and below Physical Exam Vital Signs: Last Vital Signs Pulse 83 12/02/23 08:16 Resp 12 12/02/23 08:16 BP 131/61 12/02/23 08:16 Pulse Ox 96 12/02/23 08:16 Oxygen Delivery Method Room Air 12/02/23 08:16 BMI result Body Mass Index 37.9 General: Appears afebrile. Alert and oriented. Mood and affect appropriate. Follows and participates in conversation appropriately. Respiratory effort is unlabored. Able to transition from sit to stand unassisted. Ambulates with bilaterally normal heel strike and toe off. Office Procedures Injection Trigger Point Multi Pre-procedure diagnosis: Myofascial pain Post-procedure diagnosis: Myofascial pain Site and number of trigger points: Bilateral rhomboids. bilateral trapezius bilateral occipitalis. Bilateral cervical paraspinal Solution: Total volume administered 10 ml (0.25% ropivacaine) The procedure, its benefits, and its risks were explained to the patient and all questions were answered. Prior to the start of the procedure, a ?time out? was performed to confirm correct patient, procedure, and laterality. Trigger points were identified by manual palpation and marked. The skin was cleaned with Chloraprep. A 1.5 inch 25 G needle was used. Each of the trigger points were approximated and elevated in the direction away from the body. Dry needling then took place for five seconds. Approximately 0.5 ml to 1 ml of injectate was delivered to the trigger point followed by dry needling for five seconds. This process was repeated at each trigger point site. The patient tolerated the procedure well. Post-procedure, breath sounds were equal at both sides of the chest. The patient tolerated the procedure well, without complication. The patient denied any numbness, paresthesias, or weakness. Post-procedure vitals were recorded as part of the nursing discharge note in electronic medical record. Following a period of observation, the patient was discharged in stable condition with written discharge instructions. Trigger Point Multiple: 75723- Trigger point injection =/>3 Results Reviewed Results Reviewed: No imaging is available for review. Assessment & Plan Assessment & Plan (1) Myofascial pain: Code(s): M79.18 - Myalgia, other site (2) Vertebrogenic low back pain: Code(s): M54.51 - Vertebrogenic low back pain Plan Patient is status post trigger point injection. Patient tolerated procedure well and was discharged home in stable condition with discharge instructions. All questions were answered. Follow-up as needed for TPI. Proceed as planned for BVN ablation next month. To last her until then, I will send for a 1 time script of Percocet. Her left over tramadol was received and wasted in the office today. Scribed for Dr. Weaver by Sreekanth Hernández, neuropsychology medical consultant, on 12/02/2023. I, Dr. Weaver, have personally reviewed and agree with the information entered by the scribe. Medications: New oxycodone-acetaminophen 5-325 mg (Percocet) Partial Fill upon patient request. 1 tab PO BID PRN 60 tabs 0RF pain Coding Level of Care Code Est Pt Level 4 (59109) Diagnoses Myofascial pain M79.18 Vertebrogenic low back pain M54.51 CPT Codes Details - Trigger Point Multiple: 26263- Trigger point injection =/>3 ([id number])
[2023-12-02 08:16] VITALS: BP 131/61; PULSE 83; RESP 12; O2SAT 96; BMI 37.9
== END 2023-12-02 08:42 | disposition home or self-care (01) ==
PROVIDERS: PCP Internal Medicine; Visit Provider Internal Medicine
DX: M79.18 Myalgia, other site (principal)
CPT/HCPCS: 20553

== ENCOUNTER → 2023-12-02 08:05 | Outpatient (BNVA) | payer MEDICARE, BC, SELFPAY | PROVIDERS: PCP Internal Medicine; Visit Provider Internal Medicine | DX: M79.18 Myalgia, other site (principal); M54.51 Vertebrogenic low back pain | CPT/HCPCS: 20553; J2795 ==

== ENCOUNTER 2024-01-01 11:19 | Day surgery (SDC) | payer MEDICARE, BC, SELFPAY ==
[2023-12-30 10:32] VITALS: BMI 37.9
--- NOTE | ~2024-01-01 | FL_ITS ---
EXAMINATION: XR FLUOROSCOPY WITH IMAGES CLINICAL INFORMATION: L5-S1 basivertebral Intracept RFA. COMPARISON: Lumbar spine radiographs 07/01/2023. TECHNIQUE: Fluoroscopy Supervised By: Dr. Julio Weaver. Fluoroscopy Time: 3.28 minutes. Cumulative Dose: 150.93 mGy. DAP: 23.16 Gycm2. Images: 8. FINDINGS: Imaging demonstrates a probe overlying L5 and S1. Please see Dr. Julio Weaver' report for full details. FL/FL guidance in OR IMPRESSION: Fluoroscopy and spot films provided during lumbar procedure.
[2024-01-01] MEDS: Lactated Ringers 1,000 ML 50 ML IVCONT (12:02)
[2024-01-01] MEDS: dexAMETHasone sod phosphate 4 MG/ML VIAL IVPUSH (12:02)
[2024-01-01 12:03] VITALS: BP 150/80; PULSE 77; RESP 18; TEMP 36.7; O2SAT 97
--- NOTE | 2024-01-01 12:18 | MHC.SHP ---
Pre-Procedural Eval Section A - 24 Hr Update-Section A only Date of Service: 01/01/24 The patient is an INPATIENT: No Changes since office visit: Yes Patient answered all questions The patient has been examined within 24 hours of the surgical procedure. The History & Physical has been completed within 30 days and I have reviewed it.: No Section B - Complete if H&P > 30 days Chief Complaint: Vertebrogenic low back pain Relevant Family History (Specify if Yes): No Relevant Social History: None Present Medications: see Short Stay Collaborative assessment Medical History: No relevant PMH History of Previous Operations: No relevant previous surgery Allergies: Allergies Allergy/AdvReac Type Severity Reaction Status Date / Time Sulfa (Sulfonamide Allergy Severe ANAPHYLAXIS Verified 12/02/23 08:18 Antibiotics) [SULFA (SULFONAMIDE ANTIBIOTICS)] Penicillins [PENICILLINS] Allergy Mild RASH Verified 12/02/23 08:18 latex AdvReac Severe Rash Verified 12/02/23 08:18 Review of Systems Sugical H&P ROS: Negative: Constitution, Cardiovascular and Respiratory Exam Surgical H&P Exam: Normal: HEENT, Normal: Heart and Normal: Lungs Plan Diagnosis/Plan: Unchanged I have reviewed the history and physical and performed a pertinent physical examination on my patient. No changes have occurred unless specified. Proceed with L4, L5, S1 BVN ablation. Time Spent With Patient Time: Total time managing care of this patient today ____ minutes.
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
[2024-01-01 13:10] LABS: MRSA Nasal PCR NEGATIVE (Negative); SA Nasal PCR NEGATIVE (Negative)
[2024-01-01 15:19] VITALS: BP 129/77; PULSE 70; RESP 18; TEMP 36.2; O2SAT 95
--- NOTE | 2024-01-01 15:20 | W.PM.OPN ---
Operative Note Operative Note Date of Service: 01/01/24
--- NOTE | 2024-01-01 15:20 | PM.OP ---
Brief Operative Note Date of Service: 01/01/24 Pre-op diagnosis: Vertebrogenic low back pain Post-op diagnosis: same Procedure: L4, L5, S1 basivertebral nerve ablation Implants: None Surgeon: Julio Weaver MD Anesthesia: MAC Was an Clinic Coordinator used for this Procedure?: No Estimated blood loss (mL): 30 Pathology: none sent Condition: stable Disposition: PACU
[2024-01-01 15:33] VITALS: BP 143/76; PULSE 77; RESP 16; O2SAT 98
[2024-01-01 15:48] VITALS: BP 155/85; PULSE 71; RESP 16; TEMP 36.6; O2SAT 98
== END 2024-01-01 16:03 | disposition home or self-care (01) ==
PROVIDERS: Registered Nurse Emergency; PCP Internal Medicine; Visit Provider Internal Medicine
PROC: (CPT 64628; principal; 2024-01-01 14:00)
DX: M54.51 Vertebrogenic low back pain (principal); M51.36 Other intervertebral disc degeneration, lumbar region; M46.1 Sacroiliitis, not elsewhere classified; M85.80 Other specified disorders of bone density and structure, unspecified site; M79.7 Fibromyalgia; E66.9 Obesity, unspecified; Z68.37 Body mass index [BMI] 37.0-37.9, adult; F33.9 Major depressive disorder, recurrent, unspecified; E78.00 Pure hypercholesterolemia, unspecified; Z79.51 Long term (current) use of inhaled steroids; Z79.899 Other long term (current) drug therapy; Z91.040 Latex allergy status; Z88.0 Allergy status to penicillin; Z88.2 Allergy status to sulfonamides; Z90.49 Acquired absence of other specified parts of digestive tract; Z98.890 Other specified postprocedural states
CPT/HCPCS: 64628; 64629; 87640; 87641; C1889; J0736; J1100; J2250; J2704; J2795

== ENCOUNTER → 2024-01-01 11:19 | Outpatient (BNV) | payer MEDICARE, BC, SELFPAY | PROVIDERS: PCP Internal Medicine; Visit Provider Internal Medicine | DX: M54.51 Vertebrogenic low back pain (principal) | CPT/HCPCS: 64628; 64629 ==

== ENCOUNTER 2024-01-27 09:42 | Outpatient (AMB) | payer MEDICARE, BC, SELFPAY ==
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
[2024-01-27 10:16] VITALS: BP 147/69; PULSE 84; RESP 14; O2SAT 98; BMI 41.8
== END 2024-01-27 11:07 | disposition home or self-care (01) ==
PROVIDERS: PCP Internal Medicine; Visit Provider Internal Medicine
DX: M43.16 Spondylolisthesis, lumbar region (principal)
CPT/HCPCS: 20553; 99213

== ENCOUNTER 2024-01-27 09:59 | Outpatient (REF) | payer MEDICARE, BC, SELFPAY ==
--- NOTE | ~2024-01-27 | XR_ITS ---
EXAMINATION: XR SHOULDER, RIGHT CLINICAL INFORMATION: Pain in right shoulder, patient states right shoulder sharp pain, limited range of motion, no trauma. COMPARISON: None available. TECHNIQUE: 4 views of the right shoulder. FINDINGS: Moderate degenerative changes in the acromioclavicular joint with joint space narrowing and hypertrophic change. Advanced degenerative changes with narrowing of the subacromial space, subchondral sclerosis and hypertrophic change. Mild degenerative changes in the glenohumeral joint. Degenerative changes on limited views of the thoracic spine. XR/XR shoulder RT min 2V IMPRESSION: Advanced degenerative changes with narrowing of the subacromial space concerning for rotator cuff pathology.
[2024-01-27 11:16] LABS: MANUAL DIFF FLAG NO
[2024-01-27 11:30] LABS: Basophils Absolute Auto 0.1 X10*3/uL (0.0-0.2); Basophils Percent Auto 0.9 % (0-2); Eosinophils Absolute Auto 0.2 X10*3/uL (0.0-0.4); Eosinophils Percent Auto 3.4 % (0-4); Hematocrit 40.6 % (37.0-47.0); Hemoglobin 13.6 g/dl (12.0-16.0); Imm Gran Abs Auto 0.01 X10*3/uL (0.00-0.03); Imm Gran Pct Auto 0.2 % (0.0-0.4); Lymphocytes Percent Auto 31.5 % (20-40); Mean Corpuscular HGB Conc 33.5 g/dl (31.0-35.0); Mean Corpuscular Hemoglobin 31.8 pg (27.0-33.0); Mean Corpuscular Volume 94.9 fL (80.0-98.0); Monocytes Absolute Auto 0.5 X10*3/uL (0.1-1.2); Monocytes Percent Auto 7.4 % (2-11); Neutrophils Absolute Auto 3.6 x10*3/uL (2.0-8.3); Neutrophils Percent Auto 56.6 % (45-73); Platelet Count 351 X10*3/uL (160-400); Red Blood Count 4.28 X10*6/uL (4.20-5.50); Red Cell Distribution Width 13.4 % (11.0-16.0); White Blood Count 6.4 X10*3/uL (4.8-10.8)
[2024-01-27 12:42] LABS: Appearance Urine Clear; Color Urine Yellow; Glucose Urine UA Negative (Negative); Leukocyte Esterase Urine Negative (Negative); Nitrite Urine Negative (Negative); PH 7.5 (5.0-9.0); Specific Gravity - Urine 1.015 (1.005-1.025); Urine Blood Negative (Negative); Urine Ketones Negative (Negative); Urine Protein Negative (Neg-Trace)
[2024-01-27 12:42] LABS: Alanine Aminotransferase 40 U/L (0-31); Albumin Level 4.1 g/dL (3.5-5.0); Alkaline Phosphatase 92 U/L (39-117); Anion Gap 10 (12-20); Aspartate Amino Transferase 32 U/L (5-31); Bilirubin Total 0.3 mg/dL (0.0-1.0); Blood Urea Nitrogen 9 mg/dL (9-16); Calcium 9.3 mg/dL (8.4-10.2); Carbon Dioxide 32 mmol/L (22-29); Chloride 103 mmol/L (96-108); Cholesterol 184 mg/dL (<200); Estimated Glomerular Filt Rate > 60; Glucose Fasting 93 mg/dL (60-99); HDL Cholesterol 75 mg/dL (>40); LDL Cholesterol Calculated 97 mg/dL (<100); Potassium 4.3 mmol/L (3.3-5.1); Sodium 141 mmol/L (135-145); Total Protein 7.4 g/dL (6.5-8.0); Triglycerides 64 mg/dL (<150)
[2024-01-27 12:47] LABS: TSH reflex Free T4 1.88 uIU/mL (0.32-4.0); Vitamin D 25-OH Total 40.4 ng/mL (>30)
== END 2024-01-27 10:00 | disposition home or self-care (01) ==
LOC: HO.LAB 09:59
PROVIDERS: PCP Internal Medicine; Visit Provider Internal Medicine
DX: M25.511 Pain in right shoulder (principal); E55.9 Vitamin D deficiency, unspecified; R30.0 Dysuria; I10 Essential (primary) hypertension; E78.00 Pure hypercholesterolemia, unspecified; M43.16 Spondylolisthesis, lumbar region; M79.18 Myalgia, other site; Z98.890 Other specified postprocedural states
CPT/HCPCS: 20553; 36415; 73030; 80053; 80061; 81003; 82306; 84443; 85025; 99212; J2795

== ENCOUNTER 2024-01-29 13:44 | Outpatient (AMB) | payer MEDICARE, BC, SELFPAY ==
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
[2024-01-29 13:50] VITALS: BP 110/68; PULSE 74; O2SAT 96; BMI 39.6
== END 2024-01-29 14:59 | disposition home or self-care (01) ==
PROVIDERS: PCP Internal Medicine; Visit Provider Internal Medicine
DX: E78.00 Pure hypercholesterolemia, unspecified (principal); G43.909 Migraine, unspecified, not intractable, without status migrainosus; I34.1 Nonrheumatic mitral (valve) prolapse; K29.70 Gastritis, unspecified, without bleeding; K90.0 Celiac disease; J30.9 Allergic rhinitis, unspecified; M79.7 Fibromyalgia; M51.36 Other intervertebral disc degeneration, lumbar region; M54.2 Cervicalgia; M19.91 Primary osteoarthritis, unspecified site; F33.9 Major depressive disorder, recurrent, unspecified; M25.511 Pain in right shoulder
CPT/HCPCS: 99214

== ENCOUNTER 2024-02-07 13:40 | Outpatient (REF) | payer MEDICARE, BC, SELFPAY ==
--- NOTE | ~2024-02-07 | XR_ITS ---
EXAMINATION: XR CERVICAL SPINE CLINICAL INFORMATION: Cervicalgia COMPARISON: None available. TECHNIQUE: 4 views of the cervical spine were obtained. FINDINGS: There is no fracture. Prevertebral soft tissues are within normal limits. There is marked disc space narrowing with marginal osteophyte formation at C5-C6 and C6-C7. There is straightening of the usual cervical lordosis which can be seen with muscle spasm or be due to patient positioning. There is mild retrolisthesis of C5 respect to C6 which is unchanged with flexion and extension. XR/XR cervical spine 4V IMPRESSION: 1. Degenerative disc disease at C5-C6 and C6-C7. 2. Straightening of the usual cervical lordosis which can be seen with muscle spasm or be due to patient positioning.
== END 2024-02-07 13:41 | disposition home or self-care (01) ==
LOC: HO.HOSX 13:40
PROVIDERS: PCP Internal Medicine; Visit Provider Physician Assistant
DX: M54.2 Cervicalgia (principal)
CPT/HCPCS: 72050; 99202

== ENCOUNTER 2024-02-07 13:40 | Outpatient (AMB) | payer MEDICARE, BC, SELFPAY ==
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
== END 2024-02-07 15:00 | disposition home or self-care (01) ==
PROVIDERS: PCP Internal Medicine; Referring Provider Internal Medicine; Visit Provider Physician Assistant
DX: M54.2 Cervicalgia (principal)
CPT/HCPCS: 99204

== ENCOUNTER 2024-02-19 11:10 | Outpatient (AMB) | payer MEDICARE, BC, SELFPAY ==
[2024-02-19 11:11] VITALS: BP 136/80; PULSE 92; TEMP 37.4; O2SAT 97; BMI 39.5
--- NOTE | 2024-02-19 11:11 | MHC.OFFWIV ---
Intake Vital Signs 02/19/24 11:11 Height 5 ft 1 in Weight 209 lb BMI 39.5 BP 136/80 Blood Pressure Location Rt brachial Position Sitting Pulse 92 Pulse Source Pulse Oximeter Temp 99.3 F Temp Source Oral Pulse Oximetry (%) 97 Intake Visit Reasons: EST/sore throat(lobby masked) Intake Note: pt is here today for sore throat started 3 days ago Patient Tobacco Use Status: Never used Tobacco Allergies Sulfa (Sulfonamide Antibiotics) [SULFA (SULFONAMIDE ANTIBIOTICS)] Allergy (Severe, Verified 02/19/24 11:18) ANAPHYLAXIS Penicillins [PENICILLINS] Allergy (Mild, Verified 02/19/24 11:18) RASH latex Adverse Reaction (Severe, Verified 02/19/24 11:18) Rash Do you need a note to return to daycare/school/sports/work: No HPI HPI Comments History of Present Illness Details She presents with allergy like symptoms Onset Saturday Takes Zyrtec and flonase prn + itchy red watery eyes, congestion, loss of voice and scratchy throat Throat worse in am No CP, SOB Minimal cough PFSH Medical History Sacroiliac dysfunction Migraine Burn injury Sinusitis chronic, frontal Osteopenia Obesity (BMI 30-39.9) Major depression, recurrent Insomnia Primary osteoarthritis Urinary frequency Mitral valve prolapse Allergic rhinitis Gastritis Pure hypercholesterolemia Restless leg syndrome Cervicalgia Lumbar degenerative disc disease Fibromyalgia Surgical History History of carpal tunnel release History of bunionectomy S/P GINGER-BSO (total abdominal hysterectomy and bilateral salpingo-oophorectomy) History of repair of rotator cuff History of arthroscopy of both knees History of hysterectomy Hx of cholecystectomy Hx of endoscopy History of colonoscopy Family History Father History of cancer Mother History of cancer History of high blood pressure Hx of diabetes mellitus Social History Household Members Other:: DAUGHTER AND HER FAMILY Housing: House Alcohol intake: current Alcohol intake frequency: a few times a week Patient Tobacco Use Status: Never used Tobacco e-Cigarette/Vaping Use: Never Used Second Hand Smoke Exposure: Yes service: No Current occupational status: retired Cognitive needs: No Hearing needs: No Vision needs: Yes Review of Systems Const Denies body aches, Denies chills, Denies fatigue and Denies fever(s) Eyes Denies blurry vision, Denies exophthalmos, Reports irritation and Reports itchy eyes ENT Denies otalgia, Reports nasal discharge, Reports sinus pressure, Reports sore throat, Denies throat swelling and Denies tongue swelling Card Denies chest pain and Denies dyspnea Resp Denies chest congestion, Reports cough, Denies pain with cough, Denies dyspnea and Denies wheezing Endo Denies fatigue Aller/Immun Reports itchy eyes, Reports seasonal rhinorrhea, Denies throat swelling, Denies tongue swelling and Denies wheezing Physical Exam Vital Signs: Last Vital Signs Temp 99.3 F 02/19/24 11:11 Pulse 92 02/19/24 11:11 BP 136/80 02/19/24 11:11 Pulse Ox 97 02/19/24 11:11 BMI result Body Mass Index 39.5 General: Non-toxic, NAD. Speaking full sentences. Skin: Warm dry throughout Eye: EOMI, PERRL. Minimal conjunctival erythema without FB under lid or discharge. No periorbital edema or erythema HENT: Airway patent. Uvula midline. No pharyngeal erythema or edema. No DOPE SPRAYER. + rhinorrhea Bilateral canals clear. TM non-erythematous, non-bulging. No TM perforation or hemotympanum noted. Respiratory: CTA bilaterally. No wheezes, rales or rhonchi Cardiac: RRR. No murmur MSK: Full ROM extremities. Neurology: A/O. No aphasia or facial droop. Gait without abnormality Psych: Good mood and affect Assessment & Plan Assessment & Plan (1) Allergic rhinitis: Code(s): J30.9 - Allergic rhinitis, unspecified Qualifiers: Allergic rhinitis seasonality: unspecified Allergic rhinitis trigger: unspecified Qualified Code(s): J30.9 - Allergic rhinitis, unspecified Plan: Patient seen and evaluated. strep negative No bacterial conjunctivitis Lungs CTA Azelastine eye drops Zyrtec and keep pillowcase and hair/face clean. keep windows closed F/U with PCP Patient gave verbal understanding and had no additional questions or concerns at time of discharge All questions answered Medications: New azelastine 0.05% 1 drp ophthalmic (eye) BID 6 mL 0RF 1 week Coding Level of Care Code Est Pt Level 3 (44539) Diagnoses Allergic rhinitis, unspecified seasonality, unspecified trigger J30.9 Allergic rhinitis seasonality: unspecified Allergic rhinitis trigger: unspecified
== END 2024-02-19 11:31 | disposition home or self-care (01) ==
PROVIDERS: PCP Internal Medicine; Visit Provider Physician Assistant
DX: J30.9 Allergic rhinitis, unspecified (principal); Z13.9 Encounter for screening, unspecified
CPT/HCPCS: 87880; 99213

== ENCOUNTER 2024-02-24 10:28 | Outpatient (REF) | payer MEDICARE, BC, SELFPAY | END 2024-02-24 10:29 | disposition home or self-care (01) | LOC: HO.MAMMO 10:28 | PROVIDERS: PCP Internal Medicine; Visit Provider Internal Medicine | DX: Z12.31 Encounter for screening mammogram for malignant neoplasm of breast (principal) | CPT/HCPCS: 77063; 77067 ==

== ENCOUNTER → 2024-02-24 10:30 | Outpatient (BNV) | payer MEDICARE, BC, SELFPAY | PROVIDERS: PCP Internal Medicine; Visit Provider Radiology Diagnostic Radiology | DX: Z12.31 Encounter for screening mammogram for malignant neoplasm of breast (principal) | CPT/HCPCS: 77063; 77067 ==

== ENCOUNTER 2024-02-24 19:18 | Outpatient (REF) | payer MEDICARE, BC, SELFPAY ==
--- NOTE | ~2024-02-24 | MR_ITS ---
MR CERVICAL SPINE WITHOUT CONTRAST CLINICAL INFORMATION: Disease of the spinal cord. COMPARISON: Cervical spine radiographs 02/07/2024. TECHNIQUE: MRI of the cervical spine was obtained using routine sequences without contrast. FINDINGS: There is mild anterior subluxation of C3 on C4 and C4 on C5. There is moderate to severe disc volume loss at C5-C6 and C6-C7. Multilevel endplate osteophytes. Modic type II endplate signal changes at C5-C6 and C6-C7. There is no bone marrow edema. There are no acute fractures. The craniocervical junction is unremarkable. Partially imaged intracranial compartment is unremarkable. Cervical arterial flow voids are maintained. Retropharyngeal course of the right cervical internal carotid artery proximally. No cord signal changes. C2-C3: Left-sided facet arthropathy. No central canal stenosis and no foraminal stenosis. C3-C4: Left-sided facet arthropathy. No central canal stenosis and no foraminal stenosis. C4-C5: Mild anterior subluxation. Left greater then right facet arthropathy. No central canal stenosis and no foraminal stenosis. C5-C6: Disc osteophyte without central canal stenosis. Uncovertebral joint spurring and facet arthropathy without foraminal stenosis. C6-C7: Disc osteophyte without central canal stenosis. Uncovertebral joint spurring and facet arthropathy result in mild bilateral foraminal encroachment. C7-T1: Posterior disc contour normal. Right greater than left facet arthropathy. No central canal stenosis. Mild right-sided foraminal encroachment. Small partially imaged paracentral disc protrusions within the upper thoracic spine. MR/MR cervical spine wo con IMPRESSION: Multilevel cervical spondylosis. There is no severe central canal stenosis and there is no severe foraminal stenosis within the cervical spine.
== END 2024-02-24 19:19 | disposition home or self-care (01) ==
LOC: HO.MRI 19:18
PROVIDERS: PCP Internal Medicine; Visit Provider Physician Assistant
DX: Z12.31 Encounter for screening mammogram for malignant neoplasm of breast (principal); G95.9 Disease of spinal cord, unspecified
CPT/HCPCS: 72141; 77063; 77067

== ENCOUNTER 2024-03-23 13:55 | Outpatient (AMB) | payer MEDICARE, BC, SELFPAY ==
--- NOTE | 2024-03-23 14:01 | A.SPINEOV_ITS ---
Intake Visit Reasons: discuss results Intake Note: Ms. Hdz is here to discuss MRI results and surgical options Reconditioning Associate Required: No Allergies Sulfa (Sulfonamide Antibiotics) [SULFA (SULFONAMIDE ANTIBIOTICS)] Allergy (Severe, Verified 02/19/24 11:18) ANAPHYLAXIS Penicillins [PENICILLINS] Allergy (Mild, Verified 02/19/24 11:18) RASH latex Adverse Reaction (Severe, Verified 02/19/24 11:18) Rash Assessment & Plan Assessment & Plan (1) Spondylolisthesis: Code(s): M43.10 - Spondylolisthesis, site unspecified Category: Medical Plan Laura is a pleasant 68-year-old female who comes in today for a follow-up regarding her cervical MRI. It has a recap she had a confounded physical exam due to her venlafaxine prescription. This seems to have mimicked a cervical myelopathy. Thankfully, her cervical MRI imaging appears to show no acute neurologic impingement. This was discussed with her, and we then turned our focus back to her lumbar MRI. I was able to review her lumbar MRI with Dr. Erickson. Dr. Erickson subsequently offered the patient an L4-5, L5-S1 ALIF. This procedure was extensively explained to the patient office today. She understands the risks/benefits of surgery and would like to proceed. She is nondiabetic, takes no disease modifying drugs, and is not on any anticoagulants or NSAIDs. Laura was given risk and benefits of surgery including but not limited to infection, hematoma, nerve injury, durotomy, weakness, bowel/bladder injury, p ersistent pain, as well as the option to continue with conservative treatment and patient wishes to proceed with surgery. She is aware she should stop NSAIDs 7 days prior to surgery. All questions were answered to the best of our ability. If there is anything about this patients medical history that we have overlooked or concerns you have about us proceeding with surgery we would appreciate any input you can offer. Blayne Erickson MD,PhD [facility] Coding Level of Care Code Global (31530) Diagnoses Spondylolisthesis M43.10
== END 2024-03-23 14:24 | disposition home or self-care (01) ==
PROVIDERS: PCP Internal Medicine; Visit Provider Physician Assistant
DX: M43.10 Spondylolisthesis, site unspecified (principal)
CPT/HCPCS: 99214

== ENCOUNTER → 2024-03-23 13:55 | Outpatient (BNVA) | payer MEDICARE, BC, SELFPAY | PROVIDERS: PCP Internal Medicine; Visit Provider Physician Assistant | DX: M43.10 Spondylolisthesis, site unspecified (principal) | CPT/HCPCS: 99212 ==

== ENCOUNTER 2024-03-31 13:19 | Outpatient (AMB) | payer MEDICARE, BC, SELFPAY ==
--- NOTE | 2024-03-31 13:37 | AM.OFFWIN_ITS ---
Intake Vital Signs 03/31/24 13:38 Weight 209 lb BP 110/72 Blood Pressure Location Rt brachial Position Sitting Pulse 74 Pulse Source Pulse Oximeter Pulse Oximetry (%) 98 Oxygen Delivery Method Room Air Intake Visit Reasons: EP ?Sinus/Ear infection Intake Note: Patient here for sinus and ear infection that has been present for a couple of weeks. Patient Tobacco Use Status: Never used Tobacco Allergies Sulfa (Sulfonamide Antibiotics) [SULFA (SULFONAMIDE ANTIBIOTICS)] Allergy (Severe, Verified 03/31/24 13:38) ANAPHYLAXIS Penicillins [PENICILLINS] Allergy (Mild, Verified 03/31/24 13:38) RASH latex Adverse Reaction (Severe, Verified 03/31/24 13:38) Rash Do you need a note to return to daycare/school/sports/work: No HPI HPI Comments History of Present Illness Details 68-year-old female presents today compla ining of sinus pain and pressure and a fullness in her ears for about 3 weeks. She states she has had a past medical history of sinus infections. Denies any fever chills cough chest pain PFSH Medical History Sacroiliac dysfunction Migraine Burn injury Sinusitis chronic, frontal Osteopenia Obesity (BMI 30-39.9) Major depression, recurrent Insomnia Primary osteoarthritis Urinary frequency Mitral valve prolapse Allergic rhinitis Gastritis Pure hypercholesterolemia Restless leg syndrome Cervicalgia Lumbar degenerative disc disease Fibromyalgia Surgical History History of carpal tunnel release History of bunionectomy S/P GINGER-BSO (total abdominal hysterectomy and bilateral salpingo-oophorectomy) History of repair of rotator cuff History of arthroscopy of both knees History of hysterectomy Hx of cholecystectomy Hx of endoscopy History of colonoscopy Family History Father History of cancer Mother History of cancer History of high blood pressure Hx of diabetes mellitus Social History Household Members Other:: DAUGHTER AND HER FAMILY Housing: House Alcohol intake: current Alcohol intake frequency: a few times a week Patient Tobacco Use Status: Never used Tobacco e-Cigarette/Vaping Use: Never Used Second Hand Smoke Exposure: Yes service: No Current occupational status: retired Cognitive needs: No Hearing needs: No Vision needs: Yes Review of Systems Const All systems reviewed & are unremarkable except as noted in HPI and below Eyes Reports no additional complaints ENT Reports nasal congestion, Reports sinus pain and Reports sinus pressure Card Reports no additional complaints Resp Reports no additional complaints GI Reports no additional complaints Reports no additional complaints Physical Exam Vital Signs: Last Vital Signs Pulse 74 03/31/24 13:38 BP 110/72 03/31/24 13:38 Pulse Ox 98 03/31/24 13:38 Oxygen Delivery Method Room Air 03/31/24 13:38 Const General: healthy appearing HEENT Head: Yes normal to inspection, Yes normocephalic and Yes atraumatic Ears: hearing grossly normal bilaterally, external ears normal, TM's normal bilaterally and EAC's normal General nose exam: Normal external nose present Face and sinus: Yes sinus tenderness Throat: Yes postnasal drainage Resp Effort & Inspection: normal respiratory effort Auscultation: clear to auscultation bilaterally Cardio Rate: regular rate Rhythm: regular rhythm Heart sounds: S1 normal heart sound present and S2 normal heart sound present Assessment & Plan Assessment & Plan (1) Sinusitis: Code(s): J32.9 - Chronic sinusitis, unspecified Plan: The patient was put on antibiotics for sinusitis. She will continue with her Flonase nasal spray daily and follow up with her PCP as needed Plan See plan Medications: New doxycycline hyclate 100 mg PO BID 7 days 14 caps 0RF Coding Level of Care Code Est Pt Level 3 (95249) Diagnoses Sinusitis J32.9
[2024-03-31 13:38] VITALS: BP 110/72; PULSE 74; O2SAT 98
== END 2024-03-31 14:04 | disposition home or self-care (01) ==
PROVIDERS: PCP Internal Medicine; Visit Provider Physician Assistant Medical
DX: J32.9 Chronic sinusitis, unspecified (principal)
CPT/HCPCS: 99213

== ENCOUNTER 2024-04-06 13:02 | Outpatient (AMB) | payer MEDICARE, BC, SELFPAY ==
[2024-04-06 13:07] VITALS: BP 118/66; PULSE 82; O2SAT 99; BMI 40.2
--- NOTE | 2024-04-06 13:07 | A.OFFPC_ITS ---
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 Saleem Boiler House Inspector Required: No Operations Support Representative: Not Required per policy Accompanied by: Self / Same As Patient Allergies Sulfa (Sulfonamide Antibiotics) [SULFA (SULFONAMIDE ANTIBIOTICS)] Allergy (Severe, Verified 04/06/24 13:21) ANAPHYLAXIS Penicillins [PENICILLINS] Allergy (Mild, Verified 04/06/24 13:21) RASH latex Adverse Reaction (Severe, Verified 04/06/24 13:21) Rash doxycycline Adverse Reaction (Mild, Verified 04/06/24 13:21) Abdominal Pain Medication List - Last Reconciled 04/06/24 by Marilin Russo PA-C albuterol sulfate 90 mcg/actuation (Ventolin HFA) 2 puffs inhalation Q6H PRN 30 days atorvastatin 10 mg PO DAILY tyidexzuva-pcejifn-dmkxarwf 50-325-40 mg 1 cap PO Q6-8H PRN 30 days doxycycline hyclate 100 mg PO BID 7 days fluticasone propionate 50 mcg/actuation 1 spray intranasal DAILY lidocaine 5% 1 patch topical DAILY loratadine (Claritin) 10 mg PO DAILY PRN lorazepam 0.5 mg PO DAILY PRN 30 days metaxalone 800 mg PO TID PRN 30 days pregabalin 75 mg PO BID 30 days ropinirole 1 mg PO BEDTIME 90 days sumatriptan succinate 100 mg PO DAILY PRN 30 days tramadol 100 mg (2 x 50 mg) PO Q6H PRN 48 days venlafaxine ER 150 mg PO DAILY zolpidem ER 12.5 mg PO BEDTIME PRN 30 days Tobacco use date assessed: 01/29/24 Fall risk assessment: No Falls in past year Last assessed Fall Risk: 04/06/24 Dental Screening Dental Screen Date: 11/01/23 HPI Spinal Fusion - Blayne Saleem HPI Details 68-year-old obese female with past medic al history of lumbar degenerative disc disease, hypercholesterolemia, depression, spondylolisthesis of the lumbar region, and fibromyalgia last seen by Dr. Browning 01/29/2024 coming in for preop multilevel lumbar fusion through spine center with assistance from vascular surgery 07/14/2024. Patient has had anesthesia in the past without major complications, does mention she gets nauseous with anesthesia and will discuss this with her surgeon. Denies any chest pain, syncope, shortness of breath, palpitations. She does not take any NSAIDs or anticoagulants. She does have a history of obstructive sleep apnea for which she previously used a CPAP but has not used it in 15 years and denies any issues with breathing. Denies use of cigarettes, recreational drugs, or excessive alcohol. Patient also mentioned she was seen by walk-in clinic last week for sinusitis. Was given doxycycline with no improvement, requesting different antibiotic at this time. [facility] Medical History Sacroiliac dysfunction Migraine Burn injury Sinusitis chronic, frontal Osteopenia Obesity (BMI 30-39.9) Major depression, recurrent Insomnia Primary osteoarthritis Urinary frequency Mitral valve prolapse Allergic rhinitis Gastritis Pure hypercholesterolemia Restless leg syndrome Cervicalgia Lumbar degenerative disc disease Fibromyalgia Surgical History History of carpal tunnel release History of bunionectomy S/P GINGER-BSO (total abdominal hysterectomy and bilateral salpingo-oophorectomy) History of repair of rotator cuff History of arthroscopy of both knees History of hysterectomy Hx of cholecystectomy Hx of endoscopy History of colonoscopy Family History Father History of cancer Mother History of cancer History of high blood pressure Hx of diabetes mellitus Social History Household Members Other:: DAUGHTER AND HER FAMILY Housing: House Alcohol intake: current Alcohol intake frequency: a few times a week Patient Tobacco Use Status: Never used Tobacco e-Cigarette/Vaping Use: Never Used Second Hand Smoke Exposure: Yes service: No Current occupational status: retired Cognitive needs: No Hearing needs: No Vision needs: Yes Questionnaire Thrive Questionnaire Date Thrive assessed: 11/01/23 PANFILO-7 AMB Questionnaire PANFILO-7 Date PANFILO - 7 assessed: 11/01/23 Source: Developed by Drs. Elroy Roberts, Sunni Amaro, Yadiel Maya and colleagues, with an educational og from [employer]. Review of Systems Const Denies chills, Denies difficulty sleeping, Denies fatigue and Denies fever(s) Eyes Reports no additional complaints ENT Denies dysphagia, Denies ear discharge and Reports sinus pain Card Denies chest pain, Denies rapid heart rate, Reports leg edema (Chronic edema) and Denies dyspnea Resp Denies chest congestion, Denies cough and Denies dyspnea GI Denies abdominal pain and Denies dysphagia Reports no additional complaints Musc Details: Chronic bilateral edema. Uses compression stockings and elevation with relief. Neuro Reports no additional complaints Endo Denies fatigue Physical exam (Primary Care) Vital Signs: Last Vital Signs Pulse 82 04/06/24 13:07 BP 118/66 04/06/24 13:07 Pulse Ox 99 04/06/24 13:07 Oxygen Delivery Method Room Air 04/06/24 13:07 BMI result Body Mass Index 40.2 Tobacco/Smoking Status: Tobacco use Status Tobacco use date assessed 01/29/24 04/06/24 13:07 Patient Tobacco Use Status Never used Tobacco 04/06/24 13:07 e-Cigarette/Vaping Use Never Used 04/06/24 13:07 Thrive Assessment: Date of Thrive Assessment Date Thrive assessed 11/01/23 04/06/24 13:07 Const General: cooperative, healthy appearing, comfortable and no acute distress Orientation/consciousness: patient oriented x3 Limitations: no limitations HENMT Head: Yes normal to inspection Ears: hearing grossly normal bilaterally, external ears normal and TM's normal bilaterally General nose exam: Normal external nose present Face and sinus: Yes sinus tenderness Mouth: Normal oral and palatal mucosa present and oropharynx normal Throat: Yes posterior oropharynx normal and Yes uvula midline Eyes General: appearance normal, both eyes and all related structures Conjunctivae: conjunctivae normal Pupils: Equal, round and reactive pupils present Neck Neck: Yes normal visual inspection and Yes no lymphadenopathy Chest Chest palpation & inspection: normal inspection of the chest Resp Effort & Inspection: normal respiratory effort Auscultation: clear to auscultation bilaterally, no crackles, no rales, no rhonchi and no wheezes Cardio Palpation: normal PMI Rate: regular rate Rhythm: regular rhythm Heart sounds: S1 normal heart sound present and S2 normal heart sound present Peripheral pulses: radial pulses present GI Inspection: Yes normal to inspection Palpation (GI): Soft to palpation and nontender Neuro General: patient oriented x3 Cranial nerves: Yes Equal, round and reactive pupils present Extrem Other: Mild edema in bilateral lower extremities. General: Yes normal gait Psych Appearance: grossly normal Mental Status: mental status grossly normal Affect: normal affect Thought process: Normal thought process present Thought content: Normal thought content present Insight: Good insight present (Psych) Judgement: Good judgement present (Psych) Assessment and Plan Assessment & Plan (1) Pre-op evaluation: Code(s): Z01.818 - Encounter for other preprocedural examination Plan: Preop multilevel lumbar fusion through spine center with assistance from vascular surgery scheduled for 07/14/2024. Ordered for preoperative CBC, CMP and EKG which will be completed within 1 month of the procedure. Patient understands she will need these tests to be reviewed prior to surgery. She is nondiabetic, takes no disease modifying drugs, and is not on any anticoagulants or NSAIDs. She does however take [id number] for migraines and was instructed to discontinue 7 days prior to surgery. Regarding preop clearance, the patient is at low-moderate risk for proposed surgery due to age over 60 without any major comorbidities. Reviewed with the patient that no surgery is completely free of risk and that this examination is to assist the surgeon in reviewing informed consent. (2) Sinusitis: Code(s): J32.9 - Chronic sinusitis, unspecified Qualifiers: Sinusitis location: other Chronicity: acute Recurrence: not specified as recurrent Qualified Code(s): J01.80 - Other acute sinusitis Plan: Patient was seen in walk-in clinic 03/31/2024 for sinus pressure and pain. Was given doxycycline at that time states the medication has been upsetting her stomach and has not seen improvement in symptoms. Has history of sinus infections. Ordered frontal x-ray to evaluate for sinusitis, and given azithromycin. Instructed patient to discontinue doxycycline at this time due to adverse effects, and begin azithromycin. Plan Thank you for allowing me to participate in the care of this patient. I personally spent 35 minutes reviewing, examining and charting on this patient. Coding Level of Care Code Est Pt Level 4 (48110) Diagnoses Pre-op evaluation Z01.818 Other acute sinusitis, recurrence not specified J01.80 Sinusitis location: other Chronicity: acute Recurrence: not specified as recurrent
== END 2024-04-06 13:58 | disposition home or self-care (01) ==
PROVIDERS: PCP Internal Medicine
DX: Z01.818 Encounter for other preprocedural examination (principal); J01.80 Other acute sinusitis
CPT/HCPCS: 99214

== ENCOUNTER 2024-04-08 09:45 | Outpatient (AMB) | payer MEDICARE, BC, SELFPAY ==
--- NOTE | 2024-04-08 10:10 | A.OFFVIS_ITS ---
Vital Signs 04/08/24 10:12 Height 5 ft 1 in Weight 213 lb BMI 40.2 BP 138/65 Blood Pressure Location Lt brachial Position Sitting Respiration 14 Pulse 82 Pulse Source Pulse Oximeter Pulse Oximetry (%) 97 Oxygen Delivery Method Room Air Intake Visit Reasons: NECK AND SHOULDER TRIGGER POINT INJ Allergies Sulfa (Sulfonamide Antibiotics) [SULFA (SULFONAMIDE ANTIBIOTICS)] Allergy (Severe, Verified 04/08/24 10:12) ANAPHYLAXIS Penicillins [PENICILLINS] Allergy (Mild, Verified 04/08/24 10:12) RASH latex Adverse Reaction (Severe, Verified 04/08/24 10:12) Rash doxycycline Adverse Reaction (Mild, Verified 04/08/24 10:12) Abdominal Pain Medication List - Last Reconciled 04/08/24 by Bhakti Avila LPN albuterol sulfate 90 mcg/actuation (Ventolin HFA) 2 puffs inhalation Q6H PRN 30 days atorvastatin 10 mg PO DAILY azithromycin For 250 mg dose pack: take 500 mg today (day 1), then 250 mg for 4 days (days 2-5) PO 5 days llpicikltv-mnqhmlp-oedmnuyt 50-325-40 mg 1 cap PO Q6-8H PRN 30 days doxycycline hyclate 100 mg PO BID 7 days fluticasone propionate 50 mcg/actuation 1 spray intranasal DAILY lidocaine 5% 1 patch topical DAILY loratadine (Claritin) 10 mg PO DAILY PRN lorazepam 0.5 mg PO DAILY PRN 30 days metaxalone 800 mg PO TID PRN 30 days pregabalin 75 mg PO BID 30 days ropinirole 1 mg PO BEDTIME 90 days sumatriptan succinate 100 mg PO DAILY PRN 30 days tramadol 100 mg (2 x 50 mg) PO Q6H PRN 48 days venlafaxine ER 150 mg PO DAILY zolpidem ER 12.5 mg PO BEDTIME PRN 30 days HPI HPI NECK AND SHOULDER TRIGGER POINT INJ: Details: 68-year-old female who presents to the office for evaluation of neck and shoulder trigger point injection. Denies any recent cough, cold, infection, fever or other significant changes in medical history since last office visit. Past Procedures: 01/01/24: L4, L5, S1 basivertebral nerve ablation: More than 70% relief for 1 week with subsequent return of symptoms 12/02/2023: Trigger point injections: % relief. 08/23/2023: Trigger point injections: 50% relief. 07/24/23: Interlaminar epidural steroid injection, L5-S1, right parasaggital: No relief. 04/05/23: Trigger point injections: 50% relief for 3 weeks 02/20/23: Sacroiliac Joint Injection, Bilateral: 80% relief. 06/20/22: Bilateral Intraarticular SIJ Injection (Depo 20mg each side) ? 80% relief for about 5 months. 04/04/22: GTB Injection ? 70% relief. 01/10/22: Bilateral Intra-articular SIJ Injection ? 60% relief for three months. [facility] Medical History Sacroiliac dysfunction Migraine Burn injury Sinusitis chronic, frontal Osteopenia Obesity (BMI 30-39.9) Major depression, recurrent Insomnia Primary osteoarthritis Urinary frequency Mitral valve prolapse Allergic rhinitis Gastritis Pure hypercholesterolemia Restless leg syndrome Cervicalgia Lumbar degenerative disc disease Fibromyalgia Surgical History History of carpal tunnel release History of bunionectomy S/P GINGER-BSO (total abdominal hysterectomy and bilateral salpingo-oophorectomy) History of repair of rotator cuff History of arthroscopy of both knees History of hysterectomy Hx of cholecystectomy Hx of endoscopy History of colonoscopy Family History Father History of cancer Mother History of cancer History of high blood pressure Hx of diabetes mellitus Social History Household Members Other:: DAUGHTER AND HER FAMILY Housing: House Alcohol intake: current Alcohol intake frequency: a few times a week Patient Tobacco Use Status: Never used Tobacco e-Cigarette/Vaping Use: Never Used Second Hand Smoke Exposure: Yes service: No Current occupational status: retired Cognitive needs: No Hearing needs: No Vision needs: Yes Review of Systems Const All systems reviewed & are unremarkable except as noted in HPI and below Physical Exam Vital Signs: Last Vital Signs Pulse 82 04/08/24 10:12 Resp 14 04/08/24 10:12 BP 138/65 04/08/24 10:12 Pulse Ox 97 04/08/24 10:12 Oxygen Delivery Method Room Air 04/08/24 10:12 BMI result Body Mass Index 40.2 General: Appears afebrile. Alert and oriented. Mood and affect appropriate. Follows and participates in conversation appropriately. Respiratory effort is unlabored. Able to transition from sit to stand unassisted. Office Procedures Injection Trigger Point Multi Injection Trigger Point Multi Pre-procedure diagnosis: Myofascial pain Post-procedure diagnosis: Myofascial pain Site and number of trigger points: Bilateral rhomboids. bilateral trapezius bilateral occipitalis. Bilateral cervical paraspinal Solution: Total volume administered 10 ml (0.25% ropivacaine) The procedure, its benefits, and its risks were explained to the patient and all questions were answered. Prior to the start of the procedure, a ?time out? was performed to confirm correct patient, procedure, and laterality. Trigger points were identified by manual palpation and marked. The skin was cleaned with Chloraprep. A 1.5 inch 25 G needle was used. Each of the trigger points were approximated and elevated in the direction away from the body. Dry needling then took place for five seconds. Approximately 0.5 ml to 1 ml of injectate was delivered to the trigger point followed by dry needling for five seconds. This process was repeated at each trigger point site. The patient tolerated the procedure well. Post-procedure, breath sounds were equal at both sides of the chest. The patient tolerated the procedure well, without complication. The patient denied any numbness, paresthesia, or weakness. Post-procedure vitals were recorded as part of the nursing discharge note in electronic medical record. Following a period of observation, the patient was discharged in stable condition with written discharge instructions. Trigger Point Multiple: 12532- Trigger point injection =/>3 Results Reviewed Results Reviewed: No imaging is available for review Assessment & Plan Assessment & Plan (1) Myofascial pain: Code(s): M79.18 - Myalgia, other site Category: Medical Plan Patient is status post bilateral cervical paraspinal and bilateral trapezius trigger point injections. Patient tolerated procedure well and was discharged home in stable condition with discharge instructions. All questions were answered. She had a discussion with spine surgery regarding proceeding with ALIF for lumbar spondylolisthesis. She will follow up with me as needed regarding her low back pain once she has gone through her surgery. Scribed for Dr. Weaver by Ernesto Choudhary, biomedical photographer, on 04/08/2024. I, Dr. Weaver, have personally reviewed and agree with the information entered by the scribe. Coding Level of Care Code Est Pt Level 3 (09978) Diagnoses Myofascial pain M79.18 CPT Codes Details - Trigger Point Multiple: 54209- Trigger point injection =/>3 ([id number])
[2024-04-08 10:12] VITALS: BP 138/65; PULSE 82; RESP 14; O2SAT 97; BMI 40.2
== END 2024-04-08 10:27 | disposition home or self-care (01) ==
PROVIDERS: PCP Internal Medicine; Visit Provider Internal Medicine
DX: M79.18 Myalgia, other site (principal)
CPT/HCPCS: 20553

== ENCOUNTER → 2024-04-08 09:45 | Outpatient (BNVA) | payer MEDICARE, BC, SELFPAY | PROVIDERS: PCP Internal Medicine; Visit Provider Internal Medicine | DX: M79.18 Myalgia, other site (principal) | CPT/HCPCS: 20553; J2795 ==

== ENCOUNTER 2024-05-01 14:33 | Outpatient (AMB) | payer MEDICARE, BC, SELFPAY ==
[2024-05-01 14:47] VITALS: BP 108/58; PULSE 96; O2SAT 96; BMI 39.8
--- NOTE | 2024-05-01 14:47 | MHC.PC.OV ---
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 Accompanied by: Self / Same As Patient Allergies Sulfa (Sulfonamide Antibiotics) [SULFA (SULFONAMIDE ANTIBIOTICS)] Allergy (Severe, Verified 05/01/24 15:16) ANAPHYLAXIS Penicillins [PENICILLINS] Allergy (Mild, Verified 05/01/24 15:16) RASH latex Adverse Reaction (Severe, Verified 05/01/24 15:16) Rash doxycycline Adverse Reaction (Mild, Verified 05/01/24 15:16) Abdominal Pain Medication List - Last Reconciled 05/01/24 by Osmany Browning MD albuterol sulfate 90 mcg/actuation (Ventolin HFA) 2 puffs inhalation Q6H PRN 30 days atorvastatin 10 mg PO DAILY rlodkjmqzj-plmucyp-cztxdujq 50-325-40 mg 1 cap PO Q6-8H PRN 30 days fluticasone propionate 50 mcg/actuation 1 spray intranasal DAILY lidocaine 5% 1 patch topical DAILY loratadine (Claritin) 10 mg PO DAILY PRN lorazepam 0.5 mg PO DAILY PRN 30 days metaxalone 800 mg PO TID PRN 30 days pregabalin 75 mg PO BID 30 days ropinirole 1 mg PO BEDTIME 90 days sumatriptan succinate 100 mg PO DAILY PRN 30 days tramadol 100 mg (2 x 50 mg) PO Q6H PRN 48 days venlafaxine ER 150 mg PO DAILY zolpidem ER 12.5 mg PO BEDTIME PRN 30 days Tobacco use date assessed: 01/29/24 Dental Screening Dental Screen Date: 11/01/23 HPI 3mof\u HPI Details Patient comes in today for her follow up visit States that she continues to experience increased (chronic) pain over her lower back, neck and multiple joints - states that her current Rx help keep them manageable She underwent L5-S1 basivertebral nerve ablation done with pain management a few months ago but she unfortunately did not respond effectively to the treatment She is currently still receiving trigger point injections from pain management regularly, which she states help to some extent but only temporarily She has been referred by pain management to Dr. Erickson for further evaluation Her cervical spine MRI done in February 2024 revealed no acute neurologic impingement After reviewing her most recent lumbar spine MRI, Dr. Erickson has recommended that patient undergo L4-5, L5-S1 ALIF and she is now scheduled to have her back surgery done on 07/14/2024 although she has expressed having some reservations/concerns about her upcoming back surgery and is wondering if it is possible to still get a second opinion from another neurosurgeon just to give her some peace of mind and to see if they would end up recommending the same procedure or not Patient states that she feels okay otherwise She denies any headaches or dizziness Denies any chest pains, no SOB No nausea/vomiting, no abdominal pain No change in bowel habits noted Adds that she's had some recurrent itching and possibly some rash(?) on her scalp for several weeks now She was not able to get her follow up labs done prior to her visit today [facility] Medical History Sacroiliac dysfunction Migraine Burn injury Sinusitis chronic, frontal Osteopenia Obesity (BMI 30-39.9) Major depression, recurrent Insomnia Primary osteoarthritis Urinary frequency Mitral valve prolapse Allergic rhinitis Gastritis Pure hypercholesterolemia Restless leg syndrome Cervicalgia Lumbar degenerative disc disease Fibromyalgia Surgical History History of carpal tunnel release History of bunionectomy S/P GINGER-BSO (total abdominal hysterectomy and bilateral salpingo-oophorectomy) History of repair of rotator cuff History of arthroscopy of both knees History of hysterectomy Hx of cholecystectomy Hx of endoscopy History of colonoscopy Family History Father History of cancer Mother History of cancer History of high blood pressure Hx of diabetes mellitus Social History Household Members Other:: DAUGHTER AND HER FAMILY Housing: House Alcohol intake: current Alcohol intake frequency: a few times a week Patient Tobacco Use Status: Never used Tobacco e-Cigarette/Vaping Use: Never Used Second Hand Smoke Exposure: Yes service: No Current occupational status: retired Cognitive needs: No Hearing needs: No Vision needs: Yes Questionnaire Thrive Questionnaire Date Thrive assessed: 11/01/23 PANFILO-7 AMB Questionnaire PANFILO-7 Date PANFILO - 7 assessed: 11/01/23 Source: Developed by Drs. Elroy Roberts, Sunni Amaro, Yadiel Maya and colleagues, with an educational og from [employer]. Review of Systems Const Denies chills, Denies fatigue, Denies fever(s) and Denies headache(s) ENT Denies dysphagia, Denies dizziness, Denies otalgia, Denies headache(s), Reports neck pain, Denies odynophagia and Denies sore throat Card Denies chest pain, Denies palpitations and Denies dyspnea Resp Denies cough, Denies dyspnea and Denies wheezing GI Denies abdominal pain, Denies constipation, Denies dysphagia, Denies heartburn, Denies diarrhea, Denies nausea, Denies odynophagia and Denies vomiting Denies difficulty voiding, Denies nocturia, Denies dysuria and Denies urinary urgency Musc Details: (+) recurrent muscle contracture/torsion of the left hand Reports back pain (chronic), Reports arthralgias (involving multiple joints; increased over right shoulder for the past 2 wks) and Reports neck pain Skin/Breast Reports rash ((?) on her scalp, with recurrent itching lately) Neuro Denies dizziness, Denies headache(s), Reports paresthesias (in both hands, on and off) and Reports tremor(s) (on and off in the left hand) Psych Reports anxiety Endo Denies fatigue and Denies palpitations Aller/Immun Denies wheezing Physical exam (Primary Care) Vital Signs: Last Vital Signs Pulse 96 05/01/24 14:47 BP 108/58 L 05/01/24 14:47 Pulse Ox 96 05/01/24 14:47 Oxygen Delivery Method Room Air 05/01/24 14:47 BMI result Body Mass Index 39.8 Tobacco/Smoking Status: Tobacco use Status Tobacco use date assessed 01/29/24 05/01/24 14:49 Patient Tobacco Use Status Never used Tobacco 05/01/24 14:49 e-Cigarette/Vaping Use Never Used 05/01/24 14:49 Thrive Assessment: Date of Thrive Assessment Date Thrive assessed 11/01/23 05/01/24 14:49 Const General: no acute distress and alert HENMT Ears: TM's normal bilaterally and EAC's normal Throat: Yes posterior oropharynx normal and Yes tonsils normal (no TP congestion noted) Neck Neck: Yes no lymphadenopathy and Yes tender Thyroid: Thyroid normal Resp Auscultation: clear to auscultation bilaterally, no rales and no wheezes Cardio Rate: regular rate Rhythm: regular rhythm Heart sounds: no murmurs GI Palpation (GI): Soft to palpation and nontender Auscultation: normal bowel sounds General: Yes no CVA tenderness Back/Spine/Pelvis Back: no CVA tenderness Cervical Spine: Cervical spine tenderness Thoracic/Lumbar Spine: lumbar spinal tenderness Sacroiliac joints: bilaterally tender to palpation Skin Rashes: no rashes Extrem General: Yes no clubbing, cyanosis or edema Right upper extremity: shoulder/upper arm Details: tenderness Location: of the A-C joint; no swelling and wrist Details: tenderness and Phalen's negative Left upper extremity: wrist ((+) mild tenderness - (-) Phalen's) and hand Details: normal to inspection (but (+) tremors noted) Assessment and Plan Assessment & Plan (1) Pure hypercholesterolemia: Code(s): E78.00 - Pure hypercholesterolemia, unspecified Plan: Patient was not able to get her follow up labs done prior to her appt today - states that she will try to get them done LIAN Reinforced low cholesterol diet Continue Atorvastatin 10 mg QD Will recheck her labs and fasting lipids in 3 months for follow up (2) Migraine: Code(s): G43.909 - Migraine, unspecified, not intractable, without status migrainosus Qualifiers: Intractability: not intractable Migraine type: unspecified Status migrainosus presence: without status migrainosus Qualified Code(s): G43.909 - Migraine, unspecified, not intractable, without status migrainosus Plan: Stable -? reinforced avoidance of migraine triggers Continue Sumatriptan 100 mg once a day as needed and Fiorinal capsules 50-325-40 mg 1 capsule every 6-8 hours as needed Follow up with neurology as scheduled (3) Mitral valve prolapse: Comment: Echocardiogram done in December 2019 showed (+) mild MVP, mild to moderate TR; LV systolic function is low normal with LVEF of around 50-55% Code(s): I34.1 - Nonrheumatic mitral (valve) prolapse Plan: Follow up with cardiology as scheduled for continuing surveillance (4) Gastritis: Code(s): K29.70 - Gastritis, unspecified, without bleeding Qualifiers: Chronicity: unspecified Gastritis bleeding: without bleeding Gastritis type: unspecified gastritis Qualified Code(s): K29.70 - Gastritis, unspecified, without bleeding Plan: EGD done in 2019 revealed (+) gastric erythema, duodenal erosion with strictures; biopsies came back negative for malignancies Had repeat EGD? with dilation of strictures done a couple of years ago Follow-up with GI as scheduled (5) Celiac disease/sprue: Code(s): K90.0 - Celiac disease Plan: Relates (+) Hx of celiac disease; labs done last year still showed the presence of anti-Gliadin and transglutaminase IgA antibodies consistent with celiac disease Reinforced strict compliance with a gluten free diet Follow up with GI as scheduled (6) Allergic rhinitis: Code(s): J30.9 - Allergic rhinitis, unspecified Qualifiers: Allergic rhinitis seasonality: unspecified Allergic rhinitis trigger: unspecified Qualified Code(s): J30.9 - Allergic rhinitis, unspecified Plan: Continue Fluticasone 50 mcg nasal spray QD PRN (7) Fibromyalgia: Code(s): M79.7 - Fibromyalgia Plan: Continue Lyrica 75 mg twice a day She is encouraged again to continue with regular exercises to help manage her fibromyalgia symptoms better (8) Lumbar degenerative disc disease: Comment: Grade 1-2 anterolisthesis L5/S1 with moderate to severe bilateral L5 foraminal narrowing Code(s): M51.36 - Other intervertebral disc degeneration, lumbar region Plan: Reinforced activity and weight-lifting restrictions Was going to [facility] for facet injections and pain management in the past but is now [place] [facility] [place] She has had several injections into her lower back over the past year and did not seem to have responded much to them so far She also recently underwent L5-S1 basivertebral nerve ablation done with pain management a few weeks ago but unfortunately did not respond effectively to the treatment; is currently still receiving trigger point injections into her lower back with some relief She has been referred by pain management to Dr. Erickson for further evaluation and has been recommended to undergo L4-5, L5-S1 ALIF - procedure is scheduled on 07/14/2024 although she has expressed having some reservations/concerns about her upcoming back surgery and is wondering if it is possible to still get a second opinion from another neurosurgeon just to give her some peace of mind Per request, will refer her to [facility] Neurosurgery for further evaluation / second opinion Continue Tramadol 50 mg 2 tablets every 6 hours as needed, Lidocaine patch 5% 1 patch for 12 hours daily as needed and Metaxalone 800 mg TID PRN (9) Cervicalgia: Code(s): M54.2 - Cervicalgia Plan: Follow up [place] [facility] [place] as scheduled Has been seen by Dr. Erickson for this as well and was advised that her recent cervical spine MRI done in February 2024 revealed no acute neurologic impingement and there are no surgical indications for her neck at this time (10) Primary osteoarthritis: Code(s): M19.91 - Primary osteoarthritis, unspecified site Qualifiers: Osteoarthritis location: unspecified site Qualified Code(s): M19.91 - Primary osteoarthritis, unspecified site Plan: Continue OTC Tylenol PRN for pain; Tramadol also helps She was taking NSAIDs in the past but was advised to stop last year when she was diagnosed with gastritis (11) Right shoulder pain: Code(s): M25.511 - Pain in right shoulder Qualifiers: Chronicity: unspecified Qualified Code(s): M25.511 - Pain in right shoulder Plan: Right shoulder x-rays done a few months ago revealed (+) advanced degenerative changes with narrowing of the subacromial space concerning for rotator cuff pathology Follow up with orthopedics as scheduled (12) Paresthesia of hand, bilateral: Code(s): R20.2 - Paresthesia of skin Plan: (+) Hx of CTS Repeat EMG & NCV done last year in December 2022 came out NORMAL (13) Tremor of left hand: Code(s): R25.1 - Tremor, unspecified Plan: Advised that her EMG & NCV from December 2022 came out normal Follow up with neurology as scheduled States that botox injection was originally planned for the dystonia on her upper extremities but she could not afford the co-pay that she's had to pay out of pocket so far (14) Pruritic dermatosis of scalp: Code(s): L29.8 - Other pruritus Plan: Will refer her to dermatology for further evaluation and management (15) Restless leg syndrome: Code(s): G25.81 - Restless legs syndrome Plan: Continue Ropinirole 0.5 mg Q HS - symptoms have been well-controlled on her current Rx (16) Insomnia: Code(s): G47.00 - Insomnia, unspecified Qualifiers: Insomnia type: unspecified Qualified Code(s): G47.00 - Insomnia, unspecified Plan: Sleep hygiene reinforced Continue Zolpidem ER 12.5 mg Q HS PRN (17) Major depression, recurrent: Code(s): F33.9 - Major depressive disorder, recurrent, unspecified Qualifiers: Active/Remission status: currently active Major depression episode severity: unspecified Qualified Code(s): F33.9 - Major depressive disorder, recurrent, unspecified Plan: Continue Venlafaxine ER 150 mg QD (18) Obesity (BMI 30-39.9): Code(s): E66.9 - Obesity, unspecified Plan: Reinforced diet; exercise and weight loss are unrealistic expectations at present due to patient's numerous physical issues and comorbidities Plan Follow up in 3 months Orders: Orders Complete Blood Count Auto Diff 3 Months D64.9 - Anemia, unspecified Comprehensive [place]. Panel Fast 3 Months E78.00 - Pure hypercholesterolemia, unspecified Lipid Panel 3 Months E78.00 - Pure hypercholesterolemia, unspecified Referrals Dermatology Referral L29.8 - Other pruritus Neurosurgery Referral M43.16 - Spondylolisthesis, lumbar region Coding Level of Care Code Est Pt Level 4 (79706) Complex EM visit Add On G2211 Diagnoses Pure hypercholesterolemia E78.00 Migraine without status migrainosus, not intractable, unspecified migraine type G43.909 Intractability: not intractable Migraine type: unspecified Status migrainosus presence: without status migrainosus Mitral valve prolapse I34.1 Gastritis without bleeding, unspecified chronicity, unspecified gastritis type K29.70 Chronicity: unspecified Gastritis bleeding: without bleeding Gastritis type: unspecified gastritis Celiac disease/sprue K90.0 Allergic rhinitis, unspecified seasonality, unspecified trigger J30.9 Allergic rhinitis seasonality: unspecified Allergic rhinitis trigger: unspecified Fibromyalgia M79.7 Lumbar degenerative disc disease M51.36 Cervicalgia M54.2 Primary osteoarthritis, unspecified site M19.91 Osteoarthritis location: unspecified site Right shoulder pain, unspecified chronicity M25.511 Chronicity: unspecified Paresthesia of hand, bilateral R20.2 Tremor of left hand R25.1 Pruritic dermatosis of scalp L29.8 Restless leg syndrome G25.81 Insomnia, unspecified type G47.00 Insomnia type: unspecified Episode of recurrent major depressive disorder, unspecified depression episode severity F33.9 Active/Remission status: currently active Major depression episode severity: unspecified Obesity (BMI 30-39.9) E66.9
== END 2024-05-01 15:32 | disposition home or self-care (01) ==
PROVIDERS: PCP Internal Medicine; Visit Provider Internal Medicine
DX: E78.00 Pure hypercholesterolemia, unspecified (principal); G43.909 Migraine, unspecified, not intractable, without status migrainosus; I34.1 Nonrheumatic mitral (valve) prolapse; K29.70 Gastritis, unspecified, without bleeding; K90.0 Celiac disease; J30.9 Allergic rhinitis, unspecified; M79.7 Fibromyalgia; M51.36 Other intervertebral disc degeneration, lumbar region; M54.2 Cervicalgia; F33.9 Major depressive disorder, recurrent, unspecified; M19.91 Primary osteoarthritis, unspecified site; M25.511 Pain in right shoulder; R20.2 Paresthesia of skin; R25.1 Tremor, unspecified; L29.8 Other pruritus; G25.81 Restless legs syndrome; G47.00 Insomnia, unspecified; E66.9 Obesity, unspecified
CPT/HCPCS: 99214; G2211

== ENCOUNTER 2024-06-24 11:33 | Outpatient (AMB) | payer MEDICARE, BC, SELFPAY ==
[2024-06-24 11:36] VITALS: BP 122/70; PULSE 84; O2SAT 96; BMI 39.1
--- NOTE | 2024-06-24 11:36 | MHC.PC.OV ---
Vital Signs 06/24/24 11:36 Height 5 ft 1 in Weight 207 lb BMI 39.1 BP 122/70 Blood Pressure Location Lt brachial Position Sitting Pulse 84 Pulse Source Pulse Oximeter Pulse Oximetry (%) 96 Oxygen Delivery Method Room Air Intake Visit Reasons: Lumbar Fusion on 07/[address] Arturo braxton Cardiovascular Lab Director Required: No Accompanied by: Self / Same As Patient Allergies Sulfa (Sulfonamide Antibiotics) [SULFA (SULFONAMIDE ANTIBIOTICS)] Allergy (Severe, Verified 06/24/24 11:38) ANAPHYLAXIS Penicillins [PENICILLINS] Allergy (Mild, Verified 06/24/24 11:38) RASH latex Adverse Reaction (Severe, Verified 06/24/24 11:38) Rash doxycycline Adverse Reaction (Mild, Verified 06/24/24 11:38) Abdominal Pain Medication List - Last Reconciled 06/24/24 by Marilin Russo PA-C albuterol sulfate 90 mcg/actuation (Ventolin HFA) 2 puffs inhalation Q6H PRN 30 days atorvastatin 10 mg PO DAILY oxlcrhwfor-ctcakfw-bywhmpws 50-325-40 mg 1 cap PO Q6-8H PRN 30 days fluticasone propionate 50 mcg/actuation 1 spray intranasal DAILY lidocaine 5% 1 patch topical DAILY loratadine (Claritin) 10 mg PO DAILY PRN lorazepam 0.5 mg PO DAILY PRN 30 days metaxalone 800 mg PO TID PRN 30 days pregabalin 75 mg PO BID 30 days ropinirole 1 mg PO BEDTIME 90 days sumatriptan succinate 100 mg PO DAILY PRN 30 days tramadol 100 mg (2 x 50 mg) PO Q6H PRN 48 days venlafaxine ER 150 mg PO DAILY zolpidem ER 12.5 mg PO BEDTIME PRN 30 days Tobacco use date assessed: 01/29/24 Fall risk assessment: No Falls in past year Last assessed Fall Risk: 06/24/24 Dental Screening Dental Screen Date: 11/01/23 HPI Lumbar Fusion on 07/[address] Arturo braxton HPI Details 68-year-old obese female with past medical history of lumbar degenerative disc disease, hypercholesterolemia, depression, spondylolisthesis of the lumbar region, and fibromyalgia last seen by 04/2024 coming in for preop multilevel lumbar fusion through spine center with assistance from vascular surgery 07/14/2024. Patient has had anesthesia in the past without major complications, does mention she gets nauseous with anesthesia and will discuss this with her surgeon. Denies any chest pain, syncope, shortness of breath, palpitations. She does not take any NSAIDs or anticoagulants. She does have a history of obstructive sleep apnea for which she previously used a CPAP but has not used it in 15 years and denies any issues with breathing.?Denies use of cigarettes, recreational drugs, or excessive alcohol. [facility] Medical History Sacroiliac dysfunction Migraine Burn injury Sinusitis chronic, frontal Osteopenia Obesity (BMI 30-39.9) Major depression, recurrent Insomnia Primary osteoarthritis Urinary frequency Mitral valve prolapse Allergic rhinitis Gastritis Pure hypercholesterolemia Restless leg syndrome Cervicalgia Lumbar degenerative disc disease Fibromyalgia Surgical History History of carpal tunnel release History of bunionectomy S/P GINGER-BSO (total abdominal hysterectomy and bilateral salpingo-oophorectomy) History of repair of rotator cuff History of arthroscopy of both knees History of hysterectomy Hx of cholecystectomy Hx of endoscopy History of colonoscopy Family History Father History of cancer Mother History of cancer History of high blood pressure Hx of diabetes mellitus Social History Household Members Other:: DAUGHTER AND HER FAMILY Housing: House Alcohol intake: current Alcohol intake frequency: a few times a week Patient Tobacco Use Status: Never used Tobacco Tobacco use type: Cigarette e-Cigarette/Vaping Use: Never Used Second Hand Smoke Exposure: Yes service: No Current occupational status: retired Cognitive needs: No Hearing needs: No Vision needs: Yes Questionnaire Thrive Questionnaire Date Thrive assessed: 11/01/23 Are you currently unemployed and looking for a job?: No PANFILO-7 AMB Questionnaire PANFILO-7 Date PANFILO - 7 assessed: 11/01/23 Source: Developed by Drs. Elroy Roberts, Sunni Amaro, Yadiel Maya and colleagues, with an educational og from [employer]. Review of Systems Const Denies body aches, Denies fatigue, Denies fever(s), Denies frequent falls, Denies headache(s) and Denies weakness Eyes Reports no additional complaints and Denies change in vision ENT Denies dizziness, Denies facial pain and Denies headache(s) Card Denies chest pain, Denies syncope, Reports leg edema (Occasional), Denies lightheadedness and Denies dyspnea Resp Denies cough and Denies dyspnea GI Denies nausea and Denies vomiting Denies urinary frequency, Denies dysuria, Denies urinary hesitancy and Denies urinary urgency Musc Denies back pain and Denies myalgias Skin/Breast Reports system reviewed and no additional complaints, except as documented Neuro Denies dizziness, Denies syncope, Denies frequent falls, Denies headache(s) and Denies weakness Psych Reports no additional complaints Endo Denies fatigue Physical exam (Primary Care) Vital Signs: Last Vital Signs Pulse 84 06/24/24 11:36 BP 122/70 06/24/24 11:36 Pulse Ox 96 06/24/24 11:36 Oxygen Delivery Method Room Air 06/24/24 11:36 BMI result Body Mass Index 39.1 Tobacco/Smoking Status: Tobacco use Status Tobacco use date assessed 01/29/24 06/24/24 11:40 Patient Tobacco Use Status Never used Tobacco 06/24/24 11:40 Tobacco use type Cigarette 06/24/24 11:40 e-Cigarette/Vaping Use Never Used 06/24/24 11:40 Thrive Assessment: Date of Thrive Assessment Date Thrive assessed 11/01/23 06/24/24 11:40 Const General: cooperative, healthy appearing, comfortable and no acute distress Orientation/consciousness: patient oriented x3 [facility] Head: Yes normocephalic Ears: hearing grossly normal bilaterally General nose exam: Normal external nose present Eyes General: appearance normal, both eyes and all related structures Conjunctivae: conjunctivae normal Neck Neck: Yes full ROM and Yes no lymphadenopathy Resp Effort & Inspection: normal respiratory effort Auscultation: clear to auscultation bilaterally, no crackles, no rales, no rhonchi and no wheezes Cardio Rate: regular rate Rhythm: regular rhythm Skin General skin exam: no rashes or lesions noted Neuro General: patient oriented x3 Gait exam (Neuro): Normal gait present Extrem General: Yes normal to inspection, Yes full ROM and No edema Psych Affect: normal affect Attitude: cooperative Insight: Good insight present (Psych) Judgement: Good judgement present (Psych) Assessment and Plan Assessment & Plan (1) Pre-op evaluation: Code(s): Z01.818 - Encounter for other preprocedural examination Plan: Regarding preop clearance, the patient is at moderate risk for proposed surgery due to her age however comorbidities are well managed at this time. Reviewed with the patient that no surgery is completely free of risk and that this examination is to assist the surgeon in reviewing informed consent. Updated blood work and EKG ordered today and patient will have these completed by tomorrow. Patient is not currently on any blood thinners, NSAIDs, or antiplatelet medications. Advised patient not to use [id number]-[id number] NSAIDs and migraine medications containing aspirin 7 days prior to surgery. Plan This note was constructed using voice recognition software. While every effort has been made to ensure accuracy and rnp, still areas may have been included sometimes these areas may affect the content or meeting of the given symptoms. Total time spent caring for the patient today was 30 minutes. This includes time spent before the visit reviewing the chart, time spent during the visit, and time spent after the visit and documentation. Orders: Orders Hemoglobin A1c Today Z00.00 - Encounter for general adult medical examination without abnormal findings Lipid Panel Today E78.00 - Pure hypercholesterolemia, unspecified Coding Level of Care Code Est Pt Level 4 (27097) Diagnoses Pre-op evaluation Z01.818
== END 2024-06-24 12:15 | disposition home or self-care (01) ==
PROVIDERS: PCP Internal Medicine
DX: Z01.818 Encounter for other preprocedural examination (principal)

== ENCOUNTER → 2024-06-24 11:33 | Outpatient (BNVA) | payer MEDICARE, BC, SELFPAY | PROVIDERS: PCP Internal Medicine | DX: Z01.818 Encounter for other preprocedural examination (principal); E78.00 Pure hypercholesterolemia, unspecified | CPT/HCPCS: 99212 ==

== ENCOUNTER 2024-07-03 15:06 | Outpatient (AMB) | payer MEDICARE, BC, SELFPAY ==
--- NOTE | 2024-07-03 15:19 | HO.SPINEOV ---
Intake Visit Reasons: Discuss Surgery Intake Note: Ms. Hdz is here today to Discuss Surgery. Parole Director Required: No Allergies Sulfa (Sulfonamide Antibiotics) [SULFA (SULFONAMIDE ANTIBIOTICS)] Allergy (Severe, Verified 06/24/24 11:38) ANAPHYLAXIS Penicillins [PENICILLINS] Allergy (Mild, Verified 06/24/24 11:38) RASH latex Adverse Reaction (Severe, Verified 06/24/24 11:38) Rash doxycycline Adverse Reaction (Mild, Verified 06/24/24 11:38) Abdominal Pain Assessment & Plan Assessment & Plan (1) Spondylolisthesis: Code(s): M43.10 - Spondylolisthesis, site unspecified Category: Medical Qualifiers: Spinal region: lumbosacral Qualified Code(s): M43.17 - Spondylolisthesis, lumbosacral region Plan Laura Hdz came in to discuss her upcoming surgery which is scheduled for July 14. She will undergo an anterior lumbar interbody fusion L4-5 and L5-S1. I had him meet to discuss her concerns of a previous bladder surgery. He stated that this will not interfere with our surgery. I discussed my part of the surgery and expected postoperative course. All questions were answered satisfactorily. I spent 20 minutes in his consult. Fabio Erickson MD, PhD Spine Fellowship Trained Neurosurgeon Director, [facility] Coding Level of Care Code Est Pt Level 3 (78571) Diagnoses Spondylolisthesis of lumbosacral region M43.17 Spinal region: lumbosacral
== END 2024-07-03 16:29 | disposition home or self-care (01) ==
PROVIDERS: PCP Internal Medicine; Visit Provider Neurological Surgery
DX: M43.17 Spondylolisthesis, lumbosacral region (principal)
CPT/HCPCS: 99213

== ENCOUNTER → 2024-07-03 15:06 | Outpatient (BNVA) | payer MEDICARE, BC, SELFPAY | PROVIDERS: PCP Internal Medicine; Visit Provider Neurological Surgery | DX: M43.17 Spondylolisthesis, lumbosacral region (principal) | CPT/HCPCS: 99212 ==

== ENCOUNTER 2024-07-14 09:10 | Inpatient (IN) | payer MEDICARE, BC, SELFPAY ==
--- NOTE | 2024-06-30 | ECG_ITS ---
Test Reason : PRE OP Blood Pressure : / mmHG Vent. Rate : 063 BPM Atrial Rate : 063 BPM P-R Int : 112 ms QRS Dur : 094 ms QT Int : 424 ms P-R-T Axes : 010 -04 001 degrees QTc Int : 433 ms Normal sinus rhythm Normal ECG No previous ECGs available Referred By: Astrid Mckeon Electronically Signed By:CHRIS FARRAR
[2024-06-30 10:31] VITALS: BP 141/67; PULSE 68; RESP 16; O2SAT 98; BMI 39.9
[2024-06-30 11:45] LABS: Hematocrit 39.5 % (37.0-47.0); Hemoglobin 13.1 g/dl (12.0-16.0); Mean Corpuscular HGB Conc 33.2 g/dl (31.0-35.0); Mean Corpuscular Hemoglobin 31.1 pg (27.0-33.0); Mean Corpuscular Volume 93.8 fL (80.0-98.0); Mean Platelet Volume 9.2 fL (9.4-12.3); Platelet Count 334 X10*3/uL (160-400); Red Blood Count 4.21 X10*6/uL (4.20-5.50); Red Cell Distribution Width 13.8 % (11.0-16.0); White Blood Count 5.4 X10*3/uL (4.8-10.8)
[2024-06-30 12:06] LABS: Anion Gap 12 (12-20); Blood Urea Nitrogen 16 mg/dL (9-16); Calcium 9.4 mg/dL (8.4-10.2); Carbon Dioxide 30 mmol/L (22-29); Chloride 105 mmol/L (96-108); Creatinine Clr Calc Pharmacy 84.7; Estimated Glomerular Filt Rate > 60; Glucose Random 98 mg/dL (60-115); Potassium 4.6 mmol/L (3.3-5.1); Sodium 142 mmol/L (135-145)
[2024-07-14] VITALS (14 sets, daily range): BP systolic 112–143; BP diastolic 53–78; PULSE 76–108; RESP 16–19; TEMP 36–37.3; O2SAT 92–99; BMI 39.3
--- NOTE | ~2024-07-14 | XR_ITS ---
EXAMINATION: XR LUMBOSACRAL SPINE CLINICAL INFORMATION: L4-S1 ALIF single frontal view of the pelvis. COMPARISON: None available. TECHNIQUE: Single frontal view of the pelvis. FINDINGS: Postsurgical changes with multiple surgical clips overlying the spine and pelvis as well as interdisc hardware at L5-S1 and L4-L5. Mild degenerative changes in the bilateral hips. XR/XR lumbar spine 1V IMPRESSION: Postsurgical changes with multiple surgical clips overlying the spine and pelvis as well as interdisc hardware at L5-S1 and L4-L5. Electronically signed by: Joslyn Hernandez MD 07/15/2024 02:11 PM EDT
--- OUTSIDE RECORDS SUMMARY | 2024-07-14 09:16 | XMS_ITS | Continuity of Care Document ---
Author Organization [facility] Neurosur[facility] y Address [address] [place], [place] [address]solit[address]res, [address] [place] [address]- Care Team Providers Care Bullion Weigher Name Role Phone Osmany Browning MD Primary Care Physician Encounter [facility] Date(s): 05/08/24 - 06/07/24 [facility] [address] [place] [address] Drive [address] [place], [place] [address] [[email or web address]] Allergies, Adverse Reactions, Alerts Substance Reaction Severity Status fentanyl nausea, sweating Active penicillins Active sulfa drugs Active Percocet Active Latex ITCHING Active Celery Active Immunizations Given and Recorded Vaccine Date Status Refusal Reason tetanus-diphtheria toxoids (Td) 02/05/07 Given tetanus-diphtheria toxoids (Td) 1 01/14/98 Given 1Admin Note: hyistorical Medications acetaminophen-hydrocodone 325 mg-10 mg oral tablet 1 tablet, By Mouth, Daily, 0 Refills, Maintenance, 05/20/19 10:14:56 EDT, Partial fill upon patientrequest Start Date: 05/20/19 Status: Ordered acetaminophen/butalbital/caffeine 325 mg-50 mg-40 mg oral tablet 1 tablet, By Mouth, Every 12 hours, 0 Refills, Maintenance, 05/20/19 10:09:13 EDT Start Date: 05/20/19 Stop Date: 06/19/19 Status: Ordered Ambien 5 mg oral tablet = 5 mg, By Mouth, Daily at bedtime, PRN Sleep, 0 Refills, Maintenance, 03/29/19 16:14:09 EDT, Tablet Start Date: 03/29/19 Status: Ordered aspirin 81 mg oral tablet 81, mg, 1, tablet, By Mouth, Daily, 0, 0, 10/26/05 9:11:47, Print RUBY Number, [address] [place] [address], [id number], Constant Indicator Start Date: 10/26/05 Status: Ordered atorvastatin 10 mg oral tablet 1 tablet = 10 mg, By Mouth, Daily, 0 Refills, Maintenance, 05/25/24 9:07:00 EDT, Partial fill upon patient request if the prescription is for a schedule II opioid drug. Start Date: 05/25/24 Status: Ordered Butalbital 0 Refills, Maintenance, 05/25/24 9:06:00 EDT, Partial fill upon patient request if the prescriptionis for a schedule II opioid drug. Start Date: 05/25/24 Status: Ordered cyclobenzaprine 10 mg oral tablet See Instructions, 30, 1, 1, 02/05/07 11:58:14, 1 tablet By Mouth Daily at bedtime, Print RUBY Number, ADS OPPT, [address] [address], Constant Indicator Start Date: 02/05/07 Status: Ordered diclofenac-misoprostol 75 mg-200 mcg oral tablet 1 tablet, By Mouth, 2 times a day, # 60 tablet, 0 Refills, Maintenance, 05/20/19 10:10:10 EDT, Tablet Start Date: 05/20/19 Status: Ordered fluticasone 50 mcg/inh nasal spray Daily, 0 Refills, Maintenance, 05/20/19 10:10:57 EDT Start Date: 05/20/19 Status: Ordered Lidoderm 5% film See Instructions, 30, 6, 6, 05/27/06 17:00:18, apply one patch over area pain in morning;remove 12 hours laterpo, Print RUBY Number, ADS OPPT, [address] [address], Constant Indicator Start Date: 05/27/06 Status: Ordered LORazepam 0.5 mg oral tablet 1 tablet = 0.5 mg, By Mouth, 3 times a day, 0 Refills, Maintenance, 05/20/19 10:13:53 EDT Start Date: 05/20/19 Status: Ordered Lyrica 75 mg oral capsule 75, mg, 1, capsule, By Mouth, 2 times a day, 60 capsule, 1, 0, 1, 11/26/06 11:16:17, 02/05/07 11:58:15, first week; one at bed, Print RUBY Number, ADS OPPTHS, [facility] [address] [place] [address], [id number], Willow... Start Date: 02/05/07 Stop Date: 04/06/07 Status: Ordered metaxalone 800 mg oral tablet 1 tablet = 800 mg, By Mouth, 3 times a day, 0 Refills, Maintenance, 05/20/19 10:14:23 EDT Start Date: 05/20/19 Status: Ordered methadone 10 mg oral tablet = 20 mg, By Mouth, 3 times a day, 0 Refills, Maintenance, 03/29/19 16:13:53 EDT, Tablet Start Date: 03/29/19 Status: Ordered rOPINIRole 0.25 mg oral tablet = 0.5 mg, By Mouth, Daily at bedtime, 0 Refills, Maintenance, 03/29/19 16:14:07 EDT, Tablet Start Date: 03/29/19 Status: Ordered SUMAtriptan 100 mg oral tablet 1 tablet = 100 mg, By Mouth, Once, 0 Refills, Maintenance, 05/20/19 10:16:40 EDT Start Date: 05/20/19 Status: Ordered Tramadol By Mouth, 0 Refills, Maintenance, 05/25/24 9:06:00 EDT, Partial fill upon patient request if the prescription is for a schedule II opioid drug. Start Date: 05/25/24 Status: Ordered venlafaxine 150 mg oral capsule, extended release 150 mg, By Mouth, Daily, Refills 0, Maintenance, 03/29/19 16:14:51 EDT Start Date: 03/29/19 Status: Ordered Voltaren 1% topical gel 1 application, Topically, 4 times a day, # 100 Gm, 0 Refills, Maintenance, 05/20/19 10:17:04 EDT, Gel Start Date: 05/20/19 Status: Ordered zolpidem 12.5 mg oral tablet, extended release 1 tablet = 12.5 mg, By Mouth, Daily at bedtime, PRN as needed for insomnia, 0 Refills, Maintenance,05/20/19 10:17:17 EDT, ER Tablet Start Date: 05/20/19 Status: Ordered Problem List Condition Confirmation Course Effective Dates Status H ealth Status Informant Adult celiac disease Confirmed Active Back pain;chronic pain Confirmed Active Migraine Confirmed Active Mitral insufficiency 1 Confirmed Active Myofascial pain syndrome Confirmed Active Obese class II Confirmed Active Rhinitis Confirmed Active 1patient aware need antibiotic prophylaxis Patient Care team information Care Team Personnel Name: Nam BOLTON, Osmany Webb Position: Reference Physician Member Role: PCP Address: Address: [address] [place] [address] [place] [address]- Name: Walker Lopez RN Position: S RN Member Role: Primary Care Nurse Name: Sharlene Angeles RN Position: S RN Member Role: Primary Care Nurse Care Team Related Persons Name: EDGARD SNELL Address: home [address] [place] [address] Name: ARIS RYAN Address: home [address] [facility] [address] Name: LATOYA MILLER Address: home [address] [place] [address]
--- OUTSIDE RECORDS SUMMARY | 2024-07-14 09:16 | XMS_ITS | Continuity of Care Document ---
Author Organization [facility]sur[facility] y Address [address] [place] [address] melissa, [address] [place] [address]- Care Team Providers Care Instructor Tap Dancing Name Role Phone Osmany Browning MD Primary Care Physician [place] [facility]25[place]24 - 06/24/24 [facility] Neuro[facility] [address] [place] [address] Drive [address] [place], [place] [address] Attending Physician: Leti Hinojosa Admitting Physician: AdmtrLeti Referring Physician: Admtr, ArAmanda Allergies, Adverse Reactions, Alerts Substance Reaction Severity [...] 0, 10/26/05 9:11:47, Print RUBY Number, [address] [place] [address], [id number], Constant Indicator Start Date: 10/26/05 Status: Ordered [...] at bedtime, Print RUBY Number, ADS OPPT, [address] [address], Constant Indicator Start Date: 02/05/07 Status: Ordered [...] hours laterpo, Print RUBY Number, ADS OPPT, [address] [address], Constant Indicator Start Date: 05/27/06 Status: Ordered [...] one at bed, Print RUBY Number, ADS OPPT, [address] [address], [id number], Willow... Start Date: 02/05/07 Stop Date: 04/06/07 [...] PRN as needed for insomnia, 0 Refills, Maintenance,08/14/19 10:17:17 EDT, ER Tablet Start Date: 05/20/19 [...] Care team information Care Team Personnel Name: Osmany Browning MD Position: Reference Physician Member Role: PCP Address: Address: [address] [place] [address] [place] [id number] Name: Walker Lopez RN Position: [facility] RN Member Role: Primary Care Nurse Name: Sharlene Angeles RN Position: [facility] RN Member Role: Primary Care Nurse Care Team Related Persons Name: EDGARD SNELL Address: home [address] [place] [address] Name: ARIS RYAN Address: home [address] [place] [address] Name: LATOYA MILLER Address: home [address] [place] [address]
--- OUTSIDE RECORDS SUMMARY | 2024-07-14 09:16 | XMS_ITS | Continuity of Care Document ---
Author Organization [facility] Neurosur[facility] y Address [address] [place], [place] [address]sol[address]ario torres, [address] [place] [address]- Care Team Providers Care Dormitory Maid Name Role Phone Osmany Browning MD Primary Care Physician [phone] [place] [facility] [place] 06/01/24 [facility] Neurosurgery [address] [place] [address] Drive [address] [place], [place] [address] Attending Physician: Luba Connolly DO Referring Physician: Osmany Browning MD Allergies, Adverse Reactions, Alerts Substance Reaction Severity [...] 0, 10/26/05 9:11:47, Print RUBY Number, [address] [place] [address], [id number], Constant Indicator Start Date: 10/26/05 Status: Ordered [...] at bedtime, Print RUBY Number, ADS OPPT, [address] [address], Constant Indicator Start Date: 02/05/07 Status: Ordered [...] hours laterpo, Print RUBY Number, ADS OPPT, [address] [address], Constant Indicator Start Date: 05/27/06 Status: Ordered [...] at bed, Print RUBY Number, ADS OPPT, [facility] [address] [place] [address], [id number], Willow... Start Date: 02/05/07 Stop Date: 04/06/07 [...] Confirmed Active 1patient aware need antibiotic prophylaxis Vital Signs Most recent to oldest [Reference Range]: 1 Height 154.94 cm (05/25/24 9:03 AM) Weight 95.5 kg (05/25/24 9:03 AM) Body Mass Index [18.5-24.99 kg/m2] 39.78 kg/m2 *>HHI* (05/25/24 9:03 AM) Patient Care team information Care Team Personnel Name: Osmany Browning MD Position: Reference Physician Member Role: PCP Address: Address: [address] [place] [address] Name: Walker Lopez RN Position: S RN Member Role: Primary Care Nurse Name: Sharlene Angeles RN Position: S RN Member Role: Primary Care Nurse Care Team Related Persons Name: EDGARD SNELL Address: home [address] [place] [address] Name: ARIS RYAN Address: home [address] [place] Name: LATOYA MILLER Address: home [address] [facility] [address]
[2024-07-14] MEDS: methocarbamoL 750 MG TABLET PO (09:18)
[2024-07-14] MEDS: Gabapentin 300 MG CAPSULE PO (09:18)
[2024-07-14] MEDS: Lactated Ringers 1,000 ML 100 ML IVCONT (09:37)
[2024-07-14] MEDS: vancomycin HCL 1,500 MG in 0.9 % Sodium Chloride 500 ML 333.33 MG IV ×2 (09:38→21:50)
--- NOTE | 2024-07-14 10:25 | PHA.MEDREC ---
Pharmacy Consult ? Medication Reconciliation Pharmacy has completed the medication reconciliation. Reviewed med rec done by nursing, matches claim history + added OTC meds
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
--- NOTE | 2024-07-14 12:44 | MHC.SHP ---
Pre-Procedural Eval Section A - 24 Hr Update-Section A only Date of Service: 07/14/24 The patient is an INPATIENT: Yes Section B - Complete if H&P > 30 days Chief Complaint: s/p L-4- S1 ALIF Allergies: Allergies Allergy/AdvReac Type Severity Reaction Status Date / Time Sulfa (Sulfonamide Allergy Severe ANAPHYLAXIS Verified 07/14/24 08:59 Antibiotics) [SULFA (SULFONAMIDE ANTIBIOTICS)] Penicillins [PENICILLINS] Allergy Mild RASH Verified 07/14/24 08:59 latex AdvReac Severe Rash Verified 07/14/24 08:59 doxycycline AdvReac Mild Abdominal Verified 07/14/24 08:59 Pain Review of Systems Sugical H&P ROS: Negative: Constitution, Cardiovascular, Respiratory, Neurological, Psychiatric, Hem-Onc, Allergic/Immunologic, Gastrointestinal, Genitourinary, Musculoskeletal, Integumentary, Endocrine and Eyes/Ears/Nose/Throat Exam Surgical H&P Exam: Normal: HEENT, Normal: Heart, Normal: Lungs, Normal: Extremities, Normal: Abdomen, Normal: Skin and Normal: Neurological (Awake, alert) Plan Diagnosis/Plan: Unchanged I have reviewed the history and physical and performed a pertinent physical examination on my patient. No changes have occurred unless specified. Anterior lumbar interbody fusion L4-S1 Time Spent With Patient Time: Total time managing care of this patient today _5___ minutes.
--- NOTE | 2024-07-14 15:26 | P.OP_ITS ---
Operative Note Operative Note Date of Service: 07/14/24 Narrative: I met with the patient in pre-op holding area and explained the anterior exposure portion of the procedure including bleeding, infection, injury and pateien concented. The patient was brought to the operating room, positioned on the table supine and general anesthesia was administered. The abdomen was prepped and draped in the usual sterile fashion. After timeout was done, incision was made in the supraumbilical area just to the left of the midline 7 cm long. It was brought through subcutaneous tissue and the left anterior rectus sheath in line with the skin incision . The pre- peritoneal plane was entered, peritoneum was bluntly dissected off and iliac artery pulse was felt. Peritoneum was tightly adherent inferiorly from hysterectomy and I was unable to established the plain. Periteneum was widely opened. Self-retaining retractor with two deep blades was inserted and bowel was protected with moist gauzes. Left internal iliac vein was identified and dissection was carried along the medial surface of the iliac vein up to the bifurcation. The middle sacral vessels were transected and L5-S1 disc space was bluntly and sharply dissected using bipolar cautery staying directly on the surface of the spine. The plain was very vascular with multiple venous branches and dissection was difficult.Middle sacral vein was large and we divided it between the ties.The midline of the disk space was marked with C-arm image guide. Left common iliac artery was then dissected from lateral to medial, several segmental branches were divided between the clips. L4-L5 disk space was dissected in midline was marked. There was no ilio-lumbar vein present there. Dr. Erickson then proceeded with the corpectomy and fusion at 2 levels, which will be dictated separately by him. After this was done, hemostasis was checked and was good. Left ureter was examined prior to closure and was intact. There was good left external iliac artery pulse. Diluted 0.5% Marcaine and Lidocaine was injected in the fascia and subcutaneous tissue. Omentum was placed under the incision. The incision was irrigated and closed by layers using 0 Maxone for fascia, 3-0 Vicryl for subcutaneous tissue and 4-0 Monocryl for skin. Exo-fin glue was then applied.
--- NOTE | 2024-07-14 15:53 | P.DS_ITS ---
DS: Providers Provider Date of Service: 07/16/24 Date of admission: 07/14/24 09:10 Primary care physician: Osmany Browning MD DS: Summary Time Attestation Discharge Coordination Time (in mins): 15 Quality: Safe Use of Opioids Does Pt have an Active Cancer Diagnosis on the Problem List?: No Quality: Stroke Does the patient have a stroke diagnosis?: No Physical Exam Vital Signs: Vital Signs: Last Vital Signs Temp 98.7 F 07/14/24 09:03 Pulse 76 07/14/24 09:03 Resp 18 07/14/24 09:03 BP 112/53 L 07/14/24 09:03 Pulse Ox 96 07/14/24 09:03 O2 Del Method Room Air 07/14/24 09:03 BMI result Body Mass Index 39.3 Discharge Plan Discharge Anticipated Discharge Date/Time: 07/15/24 08:53 Patient Disposition: Home, Self-Care Discharge Diagnosis: S/P L4-S1 ALIF Referrals: Osmany Browning MD [Primary Care Provider] - 1 Week Discharge Medications: New oxycodone 5 mg tablet See Rx Instructions .ROUTE .COMPLEX PRN (Reason: severe pain (scale score 7- 10)) Qty: 30 0RF Rx Instructions: Take 1-2 tablets by mouth every 4 hours as needed Continued ropinirole 1 mg tablet 1 mg PO BEDTIME 90 Days Qty: 90 1RF sumatriptan succinate 100 mg tablet 100 mg PO DAILY PRN (Reason: migraine headache) 30 Days Qty: 10 3RF lorazepam 0.5 mg tablet 0.5 mg PO DAILY PRN (Reason: anxiety) 30 Days Qty: 30 0RF venlafaxine 150 mg tablet extended release 24hr 150 mg PO DAILY Qty: 30 3RF fluticasone propionate 50 mcg/actuation spray,suspension 1 spray intranasal DAILY Qty: 16 1RF pregabalin 75 mg capsule 75 mg PO BID 30 Days Qty: 60 1RF zolpidem 12.5 mg tablet,ext release multiphase 12.5 mg PO BEDTIME PRN (Reason: sleep) 30 Days Qty: 30 0RF loratadine [Claritin] 10 mg Tablet 10 mg PO BEDTIME atorvastatin 10 mg tablet 10 mg PO BEDTIME metaxalone 800 mg tablet 800 mg PO TID PRN (Reason: muscle pain/spasms) calcium carbonate [Calcium 600] 600 mg calcium (1,500 mg) Tablet 600 mg PO DAILY Multivitamin 50 Plus Tablet 1 tab PO DAILY cholecalciferol (vitamin D3) [Vitamin D3] 25 mcg (1,000 unit) Tablet 25 mcg PO DAILY omeprazole 20 mg Capsule,Delayed Release(Dr/Ec) 20 mg PO DAILY@0630 albuterol sulfate [Ventolin HFA] 90 mcg/actuation HFA aerosol inhaler 2 puff inhalation Q6H PRN (Reason: shortness of breath or wheezing) 30 Days Qty: 8.5 1RF Held lidocaine 5 % adhesive patch,medicated 1 patch topical DAILY Qty: 30 3RF Hold Instructions: Resume on 08/13/24. Do [address] over incision sites tramadol 50 mg tablet 100 mg PO Q6H PRN (Reason: pain) 48 Days Qty: 240 0RF Hold Instructions: Resume on 08/13/24. hold until oxycodone is discontinued uqarfcqnns-byknqon-pmyhsarb 50-325-40 mg capsule 1 cap PO Q6-8H PRN (Reason: headache) 30 Days Qty: 120 0RF Hold Instructions: Resume on 07/18/24. Discharge Orders: Discharge Order (Routine); Ordered 07/16/24 Ordered By: Blayne Saleem Diet: Advance to usual diet Activity on Discharge: As tolerated Stand Alone Forms: Patient Portal Discharge page Print Language: Djib[place]ian Activity Restrictions/Additional Instructions: After your spinal surgery we ask you to observe the following restrictions/guidelines: Activity: It is normal to feel some discomfort as you increase your activity, but that will improve with time. We ask you avoid heavy lifting or acitivities that cause pain. As a general rule, 8lbs is a safe limit for lifting right after surgery. Walk as much as you feel comfortable but not to exhaustion. You will feel extra tired the first few days after surgery. Stay well hydrated. It is OK to walk up and down stairs You may return to driving when you are off narcotics (such as vicodin, oxycodone, dilaudid, etc), and you are back to normal functional capacity. If you have any concerns please check with office before driving. Return to work is specific to each patient and each surgery, so please speak with your doctor/PA at first follow up. Please bring paperwork such as FMLA at that time if you need it filled out. Medications: We recommend you take 1,000mg Tylenol every 8 hours for the first few weeks after surgery, if you do not have any liver issues and can tolerate this medication. Do not exceed 4,000mg daily. We will give you a short supply of narcotics after surgery (usually one weeks worth). If you need more please call the office but do not use more than prescribed. You will need to give our office 48 hours notice if you need narcotics refilled and we do not fill narcotics on weekends or evenings. Your on multiple narcotic medications. It is recommended you take as little narcotic pain medication as you can tolerate for this reason as multiple different narcotic should not be taken together at once if it can be avoided. They may interact adversely with one another. If you are on a narcotic, it is a good idea to take a stool softener such as colace or senna to avoid constipation Please continue to stop your Fiorinal until 07/18/24. It has a blood thinner component (Aspirin) in it. Please stop your Tramadol until you Oxycodone prescription is completed. Follow up: Please call the office, , after surgery to arrange a 3 week follow up for wound check. Wound Care: You may remove your dressing on the first day after surgery. ?You may ?leave open to air. Please do not remove the steri strips underneath. they will fall off on their own in one week. IT IS NORMAL FOR THE WOUND TO OOZE OR BE BLOODY FOR A FEW DAYS AFTER SURGERY. ?IF THIS HAPPENS JUST PLACE NEW DRESSING OVER IT TO AVOID STAINING CLOTHES. You may shower on post op day # 1 We ask that you do not let the water soak the wound. If it does get wet, just towel dry lightly. Please do not scrub your incision or place any type of chemical/ointment on the wound. No tub baths, pools or jacuzzis for one month. If you have any leaking or redness from your wound, or fevers, please call the office. Care Plan Goals: Returned to normal activity as tolerated Health Concerns: None Plan of Treatment: Follow-up in clinic in 2-3 weeks Assessment: POD: 2 Procedure: L4-S1 MARRY Sanchez was seen sitting upright in her bedside recliner this morning on . She had just had her breakfast delivered. She reports that she is doing much better today than she was yesterday. She feels the bulk of her pain has subsided, and denies any abdominal discomfort at this time. She continues to mobilize to the bathroom, in his tolerating her current diet. Her medication regimen is working well, however she did have some concerns regarding headache yesterday for which she requested to take her Fiorinal. She will need to continue holding this medication x 3 days postoeprativedue to the aspirin component. Afebrile, vital signs stable. Full strength 5/5 bilateral LE's. Back dressings C/D/I without signs of hematoma. No active sanguineous drainage. Area is dry. Plan: Laura is a pleasant 68 year old female who underwent L4-S1 lumbar fusion 2 days ago. She thankfully reports good resolution of her pain today and feels much more stable with ambulation. At this time she meets medical criteria to be discharged home. We discussed the postoperative healing course, and I [facility]. She understands that she will need to be mindful of her needs regarding narcotic pain medication as she is on multiple other medications that may interact with the. She was encouraged take the lowest possible dose that she is able to tolerate to help mitigate her pain after spinal fusion. Case was discussed with attending neurosurgeon Dr. Erickson who also saw and evaluated this patient today. Blayne Erickson MD,PhD [facility]
--- NOTE | 2024-07-14 17:29 | W.PM.OPN ---
Operative Note Operative Note Date of Service: 07/14/24 Narrative: Preoperative Diagnosis: 1.) Lumbar degenerative disc disease L4-5 and L5-S1; Lumbar spondylolisthesis; lumbar radiculopathy and back pain Procedure: L4-5, L5-S1 discectomy, arthrodesis and implantation cage through an anterior lumbar approach (ALIF) ; anterior instrumentation L4-5; L4-S1 posterior instrumented fusion; allograft Indication for Surgery Lumbar degenerative disc disease and lumbar spondylolisthesis Consent Informed Consent was obtained for this operation. I have explained the nature, purpose and benefits of the operation. I have discussed the risks and benefit of the operation including possible complications or adverse events with patient/family. Alternative(s) were discussed with the patient with their relative benefits and risks as well as the consequences of not accepting the operation were included in obtaining consent. Surgeon: GERARDO GIL MD, PHD Procedure Assisted By: AFIA ANDREW MD and MATTY Blankenship Description of Procedure This patient had a previous lumbar decompression done in another institution. She presented with intractable low back pain. MRI shows lumbar degenerative disc disease L4-5 and L5-S1 with a near collapse of the L5-S1 segment and a grade 2 lumbar spondylolisthesis L4-5. The patient was offered an anterior lumbar interbody fusion L4-5 and L5-S1 with anterior and posterior instrumentation. The procedure complications were explained. The patient was consented. The patient was brought to the operating room and endotracheally intubated. The patient was put in a supine position. Prep and drape was done followed by timeout. Dr. Andrew, co-surgeon, provided the access to the L4-5 and L5-S1 disc spaces through an anterior approach. He was assisted by physician mailing machine assistant who performed manual retraction. He will dictate the approach in a separate operative note. When the disc spaces were exposed I took over the procedure. We started at L5-S1. An annulotomy was done followed by a partial discectomy. A trial implant was inserted and advanced towards the posterior wall of the disc space. I completed the discectomy and prepare the endplates. Then a 21 x 34 x 8 height and 12 degree lordosis 4 web cage filled with allograft was inserted into the disc space. Then attention was turned to the L4-5 level where an identical procedure was performed. A 21 x 34 x 8 height and 6 degree lordosis 4 web implant filled with allograft was inserted into the disc space after the diskectomy and endplate preparation were completed. Anterior instrumentation was used at this level. A anterior screw was inserted into the L4 and L5 vertebral bodies to stabilize the reduced spondylolisthesis. The retractor was removed and hemostasis was done by Dr. Hung who closed the incision. This marked first part of the procedure. Accordingly the patient was turned prone on the Wilson spine table and 2 C arms were installed for fluoroscopy. Prep and drape was done followed by a second timeout. 2 paramedian incisions were made lateral from the L4-S1 pedicles. The muscle fascia was opened and the musculature was split bluntly to expose the posterolateral gutter. The following steps were taken for pedicle screw placement: The pediguard tap was used to create a transpedicular trajectory into the vertebral body. A K wire was advanced. A specially designed instrument was advanced over the K wire to decorticate the posterolateral gutter. Pedicle screw was advanced after which the K wire was removed. Following the steps pedicle screws were placed in the bilateral L4, L5 and S1 pedicles. Total of 6 screws were placed with the following measurements: 6.5 by 40 mm in the L4 and L5 pedicles and 6.5 x 35 mm in the bilateral S1 pedicles. A 60 mm juan alberto was tunneled bilaterally and locked down with locking caps. The extension towers were removed. The posterolateral fusion was completed by laying down allograft in the posterolateral gutter. Hemostasis was done. The paramedian incisions were closed with an 0 Vicryl to fascia and 3-0 Vicryl to subdermal layer. Steri-Strips were used to approximate the incision. An OpSite with Tegaderm was used to cover the incisions. All sponge and needle counts were correct. The patient was extubated and transported in stable condition to recovery room. The physician mailing machine assistant was critical for the following aspects of surgery : Assistance in the abdominal approach, interpretation of x-rays, insertion of pedicle screws and closure of the paramedian incisions Anesthesia: General Estimated Blood Loss (ml): 250 mL Duration of Surgery: 4 hours Complications: None Postoperative Plan: Admit to inpatient for observation
[2024-07-14] MEDS: HYDROmorphone HCl 0.5 MG/0.5 ML SYRINGE IVPUSH ×4 (17:55→18:30)
[2024-07-14] MEDS: Acetaminophen 325 MG TABLET 975 MG PO (20:17)
[2024-07-14] MEDS: 0.9 % Sodium Chloride 1,000 ML 75 ML IVCONT (20:17)
[2024-07-14] MEDS: Atorvastatin Calcium 10 MG TABLET PO (20:18)
[2024-07-14] MEDS: Ketorolac Tromethamine 15 MG/ML VIAL IVPUSH (20:18)
[2024-07-14] MEDS: Docusate Sodium 100 MG CAPSULE PO (20:18)
[2024-07-14] MEDS: Loratadine 10 MG TABLET PO (20:19)
[2024-07-14] MEDS: Pregabalin 75 MG CAPSULE PO (20:19)
[2024-07-14] MEDS: rOPINIRole HCL 1 MG TABLET PO (20:19)
[2024-07-14] MEDS: ondansetron HCL 4 MG/2 ML VIAL IVPUSH (21:49)
[2024-07-14] MEDS: Zolpidem Tartrate 5 MG TABLET PO (21:53)
[2024-07-15] MEDS: Acetaminophen 325 MG TABLET 975 MG PO ×3 (01:22→12:27)
[2024-07-15] MEDS: Ketorolac Tromethamine 15 MG/ML VIAL IVPUSH ×3 (03:43→18:32)
[2024-07-15 06:00] VITALS: BP 105/51; PULSE 102; RESP 18; TEMP 37.2; O2SAT 94
[2024-07-15] MEDS: Omeprazole 20 MG CAPSULE.DR PO (06:06)
--- NOTE | 2024-07-15 06:48 | PC.NURSE ---
DTV complete dressing to back reinforced for large amount staining.
--- NOTE | 2024-07-15 07:02 | HO.NEURO.PN ---
Neurosurgery Operative Note Date of Service: 07/15/24 Narrative: POD: 1 Procedure: L4-S1 MARRY Sanchez was seen sitting upright in bed this morning on [address] [place] [address]. She reports she has been up, walking around, to the bathroom but does feel restricted by her abdominal pain. She feels her symptoms are much better than pre-operatively overall. She also still reports mild pain in her low back, but has good relief with current pain regimen. Thankfully, she reports resolution of the shooting posterior radiculopathy she had down her right leg. She is voiding well, tolerating current diet. Afebrile, vital signs stable. Full strength 5/5 bilateral LE's. Back dressings have some staining without signs of hematoma. No active sanguineous drainage. Area is dry. Plan: Laura is a pleasant 68 year old female who underwent L4-S1 lumbar fusion yesterday. She still has quite a bit of abdominal pain and had trouble mobilizing properly with PT today. She thankfully reports good resolution of her radiculopathy. The patient will need to continue to get up OOB and mobilize as much as possible today. Patient will remain admitted to [address] [place] [address] for recovery, pain management, and further evaluation. Case was discussed with attending neurosurgeon Dr. Erickson who also saw and evaluated this patient today.
[2024-07-15 07:13] VITALS: BP 119/57; PULSE 95; RESP 18; TEMP 37.4; O2SAT 93
[2024-07-15] MEDS: SUMAtriptan succinate 100 MG TABLET PO (07:17)
[2024-07-15] MEDS: oxyCODONE HCl Immed Release 5 MG TABLET 10 MG PO ×2 (07:21→12:28)
[2024-07-15 08:07] VITALS: BP 119/57; PULSE 95; O2SAT 93
[2024-07-15] MEDS: Docusate Sodium 100 MG CAPSULE PO ×2 (08:08→20:06)
[2024-07-15] MEDS: Venlafaxine HCl ER 150 MG CAP.ER.24H PO (08:08)
[2024-07-15] MEDS: Pregabalin 75 MG CAPSULE PO ×2 (08:08→20:07)
[2024-07-15] MEDS: Cholecalciferol (Vitamin D3) 25 MCG TABLET PO (08:08)
[2024-07-15] MEDS: Multivitamin TABLET 1 TAB PO (08:08)
[2024-07-15] MEDS: 0.9 % Sodium Chloride 1,000 ML 75 ML IVCONT ×2 (08:08→21:16)
[2024-07-15] MEDS: Calcium Carbonate 750 MG TAB.CHEW PO (08:08)
--- NOTE | 2024-07-15 11:01 | MHC.CM.PN ---
IMM DELIVERED. PT LIVES WITH S/O. PT USES [facility] FOR MOBILITY. + HCP PCP DR. WALTERS [place] [facility] [place] SERVICES IS THE GOAL. PT HAS OWN RIDE HOME. CM WILL CONTINUE TO FOLLOW FOR ANY CHANGE TO DC PLAN/NEEDS.
[2024-07-15] MEDS: HYDROmorphone HCl 1 MG/ML SYRINGE IVPUSH ×3 (11:06→22:24)
[2024-07-15 14:00] VITALS: BP 120/63; PULSE 95; RESP 16; O2SAT 94
[2024-07-15 15:29] VITALS: BP 116/57; PULSE 98; RESP 18; TEMP 37.2; O2SAT 96
[2024-07-15 19:19] VITALS: BP 114/57; PULSE 98; RESP 16; TEMP 36.7; O2SAT 94
[2024-07-15] MEDS: Loratadine 10 MG TABLET PO (20:07)
[2024-07-15] MEDS: rOPINIRole HCL 1 MG TABLET PO (20:07)
[2024-07-15] MEDS: Atorvastatin Calcium 10 MG TABLET PO (20:07)
[2024-07-15] MEDS: oxyCODONE HCl Immed Release 5 MG TABLET PO (20:11)
[2024-07-15] MEDS: Butalb/Acetamin/Caff 50/325/40 TABLET 1 TAB PO (21:16)
[2024-07-15] MEDS: Zolpidem Tartrate 5 MG TABLET PO (22:24)
[2024-07-16 02:42] VITALS: BP 133/61; PULSE 109; RESP 16; TEMP 36.8; O2SAT 94
[2024-07-16] MEDS: Ketorolac Tromethamine 15 MG/ML VIAL IVPUSH (02:58)
[2024-07-16] MEDS: oxyCODONE HCl Immed Release 5 MG TABLET 10 MG PO ×2 (02:58→07:40)
[2024-07-16] MEDS: Omeprazole 20 MG CAPSULE.DR PO (06:26)
[2024-07-16] MEDS: Acetaminophen 325 MG TABLET 975 MG PO (06:26)
[2024-07-16 07:19] VITALS: BP 117/58; PULSE 101; RESP 18; TEMP 37.2; O2SAT 93
[2024-07-16 07:24] VITALS: BP 153/68; PULSE 68; RESP 16; TEMP 36.3; O2SAT 96
[2024-07-16 07:48] VITALS: BP 153/68; PULSE 68; O2SAT 96
--- NOTE | 2024-07-16 09:14 | HO.POSTANES ---
Post Anesthesia Evaluation Post Anesthesia Evaluation Date of Service: 07/14/24 Vital Signs: Vital Signs Temp Pulse Resp BP Pulse Ox O2 Del Method 07/16/24 07:48 68 153/68 H 96 07/16/24 07:24 97.4 F 68 16 153/68 H 96 Room Air 07/16/24 07:19 98.9 F 101 H 18 117/58 L 93 Room Air 07/16/24 02:42 98.3 F 109 H 16 133/61 94 Room Air Anesthesia: General Endotracheal-GETA Mental Status: Awake Pain Control: Satisfactory Nausea/Vomiting: None Hydration: Adequate Anesthesia-Related Issues: No Anes. Related Issues
--- NOTE | 2024-07-16 09:35 | HO.NEURO.PN ---
Neurosurgery Operative Note Date of Service: 07/16/24 Narrative: POD: 2 Procedure: L4-S1 MARRY Sanchez was seen sitting upright in her bedside recliner this morning on . She had just had her breakfast delivered. She reports that she is doing much better today than she was yesterday. She feels the bulk of her pain has subsided, and denies any abdominal discomfort at this time. She continues to mobilize to the bathroom, in his tolerating her current diet. Her medication regimen is working well, however she did have some concerns regarding headache yesterday for which she requested to take her Fiorinal. She will need to continue holding this medication x 3 days postoeprativedue to the aspirin component. Afebrile, vital signs stable. Full strength 5/5 bilateral LE's. Back dressings C/D/I without signs of hematoma. No active sanguineous drainage. Area is dry. Plan: Laura is a pleasant 68 year old female who underwent L4-S1 lumbar fusion 2 days ago. She thankfully reports good resolution of her pain today and feels much more stable with ambulation. At this time she meets medical criteria to be discharged home. We discussed the postoperative healing course, and I [facility] her [facility]. She understands that she will need to be mindful of her needs regarding narcotic pain medication as she is on multiple other medications that may interact with the. She was encouraged take the lowest possible dose that she is able to tolerate to help mitigate her pain after spinal fusion. Case was discussed with attending neurosurgeon Dr. Erickson who also saw and evaluated this patient today. Blayne Erickson MD,PhD [facility]
[2024-07-16] MEDS: Pregabalin 75 MG CAPSULE PO (09:39)
[2024-07-16] MEDS: Venlafaxine HCl ER 150 MG CAP.ER.24H PO (09:39)
[2024-07-16] MEDS: Cholecalciferol (Vitamin D3) 25 MCG TABLET PO (09:39)
[2024-07-16] MEDS: Docusate Sodium 100 MG CAPSULE PO (09:39)
[2024-07-16] MEDS: Calcium Carbonate 750 MG TAB.CHEW PO (09:39)
[2024-07-16] MEDS: Multivitamin TABLET 1 TAB PO (09:39)
--- NOTE | 2024-07-16 09:49 | MHC.CM.PN ---
DP: PT HAS BEEN MEDICALLY CLEARED FOR DC HOME, NO SERVICES. PT HAS OWN RIDE HOME.
== END 2024-07-16 11:32 | disposition home or self-care (01) | DRG 448 ==
LOC: HO.SSSA 15:54 → HO.S3 17:16
PROVIDERS: Neurological Surgery; Nurse Practitioner; Admitting Provider Physician Assistant; PCP Internal Medicine; Visit Provider Physician Assistant
PROC: 0SG00A0 Fusion of Lumbar Vertebral Joint with Interbody Fusion Device, Anterior Approach, Anterior Column, Open Approach (ICD-10-PCS; principal; 2024-07-14 11:30)
DX: M51.16 Intervertebral disc disorders with radiculopathy, lumbar region (principal); M48.061 Spinal stenosis, lumbar region without neurogenic claudication; M51.379 Other intervertebral disc degeneration, lumbosacral region without mention of lumbar back pain or lower extremity pain; M43.16 Spondylolisthesis, lumbar region; Z91.040 Latex allergy status; Z79.51 Long term (current) use of inhaled steroids; Z79.899 Other long term (current) drug therapy
CPT/HCPCS: 36415; 72020; 80048; 85027; 86850; 86900; 86901; 93005; 97116; 97162; C1713; C1889; J0131; J1171; J1200; J1885; J2003; J2250; J2371; J2405; J2704; J3010; J3371; L8699

== ENCOUNTER → 2024-07-14 09:10 | Outpatient (BNV) | payer MEDICARE, BC, SELFPAY | PROVIDERS: Admitting Provider Physician Assistant; PCP Internal Medicine; Visit Provider Surgery | DX: Z48.89 Encounter for other specified surgical aftercare (principal) | CPT/HCPCS: 20930; 22558; 22585; 22612; 22614; 22845; 22849; 22853; 99024; 99499 ==

== ENCOUNTER 2024-07-24 14:41 | Outpatient (AMB) | payer MEDICARE, BC, SELFPAY ==
--- NOTE | 2024-07-24 14:48 | MHC.PC.OV ---
Vital Signs 07/24/24 14:50 Height 5 ft 1 in Weight 212 lb BMI 40.1 BP 124/66 Blood Pressure Location Lt brachial Position Sitting Pulse 73 Pulse Source Pulse Oximeter Pulse Oximetry (%) 97 Oxygen Delivery Method Room Air Intake Visit Reasons: TCM L4-L1 ALIF sx Intake Note: Patient is here for hospital discharge follow up. [place] [facility] Diversity Specialist Required: No Allergies Sulfa (Sulfonamide Antibiotics) [SULFA (SULFONAMIDE ANTIBIOTICS)] Allergy (Severe, Verified 07/24/24 14:50) ANAPHYLAXIS Penicillins [PENICILLINS] Allergy (Mild, Verified 07/24/24 14:50) RASH latex Adverse Reaction (Severe, Verified 07/24/24 14:50) Rash doxycycline Adverse Reaction (Mild, Verified 07/24/24 14:50) Abdominal Pain Medication List - Last Reconciled 07/24/24 by Marilin Russo PA-C albuterol sulfate 90 mcg/actuation (Ventolin HFA) 2 puffs inhalation Q6H PRN 30 days atorvastatin 10 mg PO BEDTIME lnlghygxpl-sksjbww-cabydyzx 50-325-40 mg 1 cap PO Q6-8H PRN 30 days calcium carbonate (Calcium 600) 600 mg PO DAILY cholecalciferol (vitamin D3) (Vitamin D3) 25 mcg PO DAILY fluticasone propionate 50 mcg/actuation 1 spray intranasal DAILY lidocaine 5% 1 patch topical DAILY loratadine (Claritin) 10 mg PO BEDTIME lorazepam 0.5 mg PO DAILY PRN 30 days metaxalone 800 mg PO TID PRN okwwpozrolpq-ddxznxbn-ejzivd (Multivitamin 50 Plus tablet) 1 tab PO DAILY omeprazole 20 mg PO DAILY@0630 pregabalin 75 mg PO BID 30 days ropinirole 1 mg PO BEDTIME 90 days sumatriptan succinate 100 mg PO DAILY PRN 30 days tramadol 100 mg PO Q6H PRN venlafaxine ER 150 mg PO DAILY zolpidem ER 12.5 mg PO BEDTIME PRN 30 days Tobacco use date assessed: 01/29/24 Fall risk assessment: No Falls in past year Last assessed Fall Risk: 07/24/24 Dental Screening Dental Screen Date: 11/01/23 HPI TCM L4-L1 ALIF sx HPI Details 68-year-old obese female with past medical history of lumbar degenerative disc disease, hypercholesterolemia, depression, spondylolisthesis of the lumbar region, and fibromyalgia last seen June 2024 coming in for hospital discharge follow up. In review of the notes, patient underwent anterior lumbar interbody fusion L4-L5 and L5-S1 with anterior and posterior instrumentation with Dr. Erickson 07/14/2024. Patient's pain was well managed while in the hospital and was discharged home with oxycodone for pain and lifting restrictions 07/16/2024. She mentioned she continues to have pain primarily a burning shooting pain from the back down bilateral legs. Denies any weakness or tingling in the lower extremities. This pain was previous to the back surgery and does not new. She feels her mobility is good and does not need any help with her activities of daily living at this time. She did reach out to the cardiology clinical nurse specialist yesterday for pain management and was given tramadol. TCM TCM Information Date of Discharge 07/16/24 Discharged From [facility] Medical History (Updated 07/24/24 @ 15:29 by Marilin Russo PA-C) Osteoarthritis Arthritis Back pain Celiac sprue GERD (gastroesophageal reflux disease) Anxiety Numbness Sepsis Sleep apnea Sacroiliac dysfunction Migraine Burn injury Sinusitis chronic, frontal Osteopenia Obesity (BMI 30-39.9) Major depression, recurrent Insomnia Primary osteoarthritis Urinary frequency Mitral valve prolapse Allergic rhinitis Gastritis Pure hypercholesterolemia Restless leg syndrome Cervicalgia Lumbar degenerative disc disease Fibromyalgia Surgical History History of bilateral knee arthroplasty Hx of eye surgery History of cataract surgery History of carpal tunnel release History of bunionectomy S/P GINGER-BSO (total abdominal hysterectomy and bilateral salpingo-oophorectomy) History of repair of rotator cuff History of arthroscopy of both knees Hx of cholecystectomy Hx of endoscopy History of colonoscopy Family History Father History of cancer Mother History of cancer History of high blood pressure Hx of diabetes mellitus Social History Household Members: Significant Other Household Members Other:: DAUGHTER AND HER FAMILY Housing: House Are you a primary child care giver to a significant other at home: No Do you presently have visiting nurse or other home services: No Alcohol intake: current Alcohol intake frequency: a few times a month Patient Tobacco Use Status: Never used Tobacco Tobacco use type: Cigarette e-Cigarette/Vaping Use: Never Used Second Hand Smoke Exposure: Yes service: No Current occupational status: retired Cognitive needs: No Hearing needs: No Vision needs: Yes Questionnaire Thrive Questionnaire Date Thrive assessed: 07/15/24 Are you currently unemployed and looking for a job?: No AUDIT C Alcohol Use Questionnaire (AUDIT-C) 1. How often do you have a drink containing alcohol?: 2-3 times a week 2. How many drinks containing alcohol do you have on a typical day when you are drinking?: 1 or 2 3. How often do you have six or more drinks on one occasion?: Never Total Score: 3 Score Reviewed/Action Taken: Yes PANFILO-7 AMB Questionnaire PANFILO-7 Date PANFILO - 7 assessed: 11/01/23 Source: Developed by Drs. Elroy Roberts, Sunni Amaro, Yadiel Maya and colleagues, with an educational og from [employer]. Review of Systems Const Denies body aches, Denies chills and Denies fever(s) Eyes Reports no additional complaints ENT Reports no additional complaints Card Denies chest pain, Denies leg edema, Denies lightheadedness, Denies dyspnea and Denies dyspnea on exertion Resp Denies dyspnea and Denies dyspnea on exertion GI Reports no additional complaints Reports no additional complaints Musc Details: Back pain Skin/Breast Reports system reviewed and no additional complaints, except as documented Physical exam (Primary Care) Vital Signs: Last Vital Signs Pulse 73 07/24/24 14:50 BP 124/66 07/24/24 14:50 Pulse Ox 97 07/24/24 14:50 Oxygen Delivery Method Room Air 07/24/24 14:50 BMI result Body Mass Index 40.1 Tobacco/Smoking Status: Tobacco use Status Tobacco use date assessed 01/29/24 07/24/24 14:48 Patient Tobacco Use Status Never used Tobacco 07/24/24 14:48 Tobacco use type Cigarette 07/24/24 14:48 e-Cigarette/Vaping Use Never Used 07/24/24 14:48 Thrive Assessment: Date of Thrive Assessment Date Thrive assessed 07/15/24 07/24/24 14:48 Const General: cooperative, healthy appearing, comfortable and no acute distress Orientation/consciousness: patient oriented x3 HENMT Head: Yes normocephalic Ears: hearing grossly normal bilaterally General nose exam: Normal external nose present Eyes General: appearance normal, both eyes and all related structures Conjunctivae: conjunctivae normal Neck Neck: Yes full ROM and Yes no lymphadenopathy Resp Effort & Inspection: normal respiratory effort Auscultation: clear to auscultation bilaterally, no crackles, no rales, no rhonchi and no wheezes Cardio Rate: regular rate Rhythm: regular rhythm Skin General skin exam: no rashes or lesions noted Neuro General: patient oriented x3 Gait exam (Neuro): Normal gait present Extrem General: Yes normal to inspection, Yes full ROM and No edema Psych Affect: normal affect Attitude: cooperative Insight: Good insight present (Psych) Judgement: Good judgement present (Psych) Coding Level of Care Code TCM Mod MDM <= 14 Days Diagnoses Spondylolisthesis of lumbosacral region M43.17 Spinal region: lumbosacral Fibromyalgia M79.7 Pure hypercholesterolemia E78.00 Assessment & Plan Assessment & Plan (1) Spondylolisthesis: Comment: s/p anterior lumbar interbody fusion L4-L5 and L5-S1 with anterior and posterior instrumentation with Dr. Erickson 07/14/2024 Code(s): M43.10 - Spondylolisthesis, site unspecified Category: Medical Qualifiers: Spinal region: lumbosacral Qualified Code(s): M43.17 - Spondylolisthesis, lumbosacral region Plan: Patient has been doing well postoperatively and feels her pain is somewhat well managed. She did receive tramadol yesterday and picked it up at the pharmacy today. She will begin taking tramadol and follow up with the surgeon regarding further pain management. No acute concerns today and no evidence of infection at this time. Follow up with surgeon in the following weeks. (2) Fibromyalgia: Code(s): M79.7 - Fibromyalgia Category: Medical Plan: Continue with pain management. (3) Pure hypercholesterolemia: Code(s): E78.00 - Pure hypercholesterolemia, unspecified Category: Medical Plan: Avoid foods that are high in cholesterol such as red meat, fried foods, eggs and baked goods. Triglyceride goal of less than 150 and LDL goal of less than 100. Repeat blood work ordered follow up in 1 month. Plan This note was constructed using voice recognition software. While every effort has been made to ensure accuracy and matcher leather parts, still areas may have been included sometimes these areas may affect the content or meeting of the given symptoms. Total time spent caring for the patient today was 30 minutes. This includes time spent before the visit reviewing the chart, time spent during the visit, and time spent after the visit and documentation.
[2024-07-24 14:50] VITALS: BP 124/66; PULSE 73; O2SAT 97; BMI 40.1
== END 2024-07-24 15:34 | disposition home or self-care (01) ==
PROVIDERS: PCP Internal Medicine
DX: M43.17 Spondylolisthesis, lumbosacral region (principal); M79.7 Fibromyalgia; E78.00 Pure hypercholesterolemia, unspecified

== ENCOUNTER → 2024-07-24 14:41 | Outpatient (BNVA) | payer MEDICARE, BC, SELFPAY | PROVIDERS: PCP Internal Medicine | DX: M43.17 Spondylolisthesis, lumbosacral region (principal); M79.7 Fibromyalgia; E78.00 Pure hypercholesterolemia, unspecified | CPT/HCPCS: 99495 ==

== ENCOUNTER 2024-08-04 13:33 | Outpatient (AMB) | payer MEDICARE, BC, SELFPAY ==
--- NOTE | 2024-08-04 13:47 | A.SPINEOV_ITS ---
Intake Visit Reasons: 1st post op Intake Note: Ms. Hdz is here today for her 1st post op appointment. [employer]room [employer] Media Mixer Required: No Allergies Sulfa (Sulfonamide Antibiotics) [SULFA (SULFONAMIDE ANTIBIOTICS)] Allergy (Severe, Verified 07/24/24 14:50) ANAPHYLAXIS Penicillins [PENICILLINS] Allergy (Mild, Verified 07/24/24 14:50) RASH latex Adverse Reaction (Severe, Verified 07/24/24 14:50) Rash doxycycline Adverse Reaction (Mild, Verified 07/24/24 14:50) Abdominal Pain Assessment & Plan Assessment & Plan (1) Spondylolisthesis: Comment: s/p anterior lumbar interbody fusion L4-L5 and L5-S1 with anterior and posterior instrumentation with Dr. Erickson 07/14/2024 Code(s): M43.10 - Spondylolisthesis, site unspecified Category: Medical Qualifiers: Spinal region: lumbosacral Qualified Code(s): M43.17 - Spondylolisthesis, lumbosacral region Plan Procedure: L4-S1 MARRY Sanchez comes in today for her 1st postoperative visit. She reports she is very satisfied with the surgery and feels much better than she did pre-operatively. To recap she initially was evaluated in clinic for severe low back pain and bu rning/throbbing pain shooting down her right posterior buttocks down the back side of her right leg terminating near her foot. The patient reports she is up walking around and completing the majority of her ADLs. She reports that she no longer suffers from shooting pains into her lower extremities. She overall is feeling well and states that the pain that she does feel is mild in nature and she attributes it to the surgical incision sites. We discussed the postoperative healing course and I answered all of her questions to the best of my ability. No new neurological deficits. Patient is able to ambulate well, rises from a seated position without difficulty. Incision sites are closed, well healing, with no signs of drainage. We will follow-up with the patient in 6 weeks for their 2nd postoperative visit. At that time we will get x-rays to review with the patient. Blayne Erickson MD,PhD [facility] [place] Coding Level of Care Code Global (21981) Diagnoses Spondylolisthesis of lumbosacral region M43.17 Spinal region: lumbosacral
== END 2024-08-04 13:55 | disposition home or self-care (01) ==
LOC: HO.HNS 13:34
PROVIDERS: PCP Internal Medicine; Visit Provider Physician Assistant
DX: M43.17 Spondylolisthesis, lumbosacral region (principal)
CPT/HCPCS: 99024

== ENCOUNTER → 2024-08-04 13:33 | Outpatient (BNVA) | payer MEDICARE, BC, SELFPAY | PROVIDERS: PCP Internal Medicine; Visit Provider Physician Assistant | DX: M43.17 Spondylolisthesis, lumbosacral region (principal); Z47.89 Encounter for other orthopedic aftercare; Z98.890 Other specified postprocedural states | CPT/HCPCS: 99212 ==

== ENCOUNTER 2024-08-11 07:11 | Outpatient (REF) | payer MEDICARE, BC, SELFPAY ==
[2024-08-11 07:24] LABS: MANUAL DIFF FLAG NO
[2024-08-11 08:10] LABS: Basophils Absolute Auto 0.1 X10*3/uL (0.0-0.2); Basophils Percent Auto 1.4 % (0-2); Eosinophils Absolute Auto 0.9 X10*3/uL (0.0-0.4); Eosinophils Percent Auto 17.9 % (0-4); Hemoglobin 11.9 g/dl (12.0-16.0); Imm Gran Abs Auto 0.01 X10*3/uL (0.00-0.03); Imm Gran Pct Auto 0.2 % (0.0-0.4); Lymphocytes Absolute Auto 2.3 X10*3/uL (1.2-4.9); Lymphocytes Percent Auto 44.2 % (20-40); Mean Corpuscular HGB Conc 32.2 g/dl (31.0-35.0); Mean Corpuscular Hemoglobin 30.7 pg (27.0-33.0); Mean Corpuscular Volume 95.4 fL (80.0-98.0); Monocytes Absolute Auto 0.5 X10*3/uL (0.1-1.2); Monocytes Percent Auto 9.4 % (2-11); Neutrophils Absolute Auto 1.4 x10*3/uL (2.0-8.3); Neutrophils Percent Auto 26.9 % (45-73); Platelet Count 333 X10*3/uL (160-400); Red Blood Count 3.88 X10*6/uL (4.20-5.50); Red Cell Distribution Width 14.2 % (11.0-16.0); White Blood Count 5.1 X10*3/uL (4.8-10.8)
[2024-08-11 08:18] LABS: Estimated Average Glucose 103 mg/dL; Hemoglobin A1C 105.0697 umol/L; Hemoglobin A1c % 5.2 % (<6.0); Total Hemoglobin (HGBA1C) 3196.0812 umol/L
[2024-08-11 08:49] LABS: Alanine Aminotransferase 23 U/L (0-31); Albumin Level 3.9 g/dL (3.5-5.0); Alkaline Phosphatase 121 U/L (39-117); Anion Gap 12 (12-20); Aspartate Amino Transferase 25 U/L (5-31); Bilirubin Total 0.3 mg/dL (0.0-1.0); Blood Urea Nitrogen 9 mg/dL (9-16); Calcium 9.7 mg/dL (8.4-10.2); Carbon Dioxide 27 mmol/L (22-29); Chloride 107 mmol/L (96-108); Cholesterol 186 mg/dL (<200); Estimated Glomerular Filt Rate > 60; Glucose Fasting 98 mg/dL (60-99); HDL Cholesterol 67 mg/dL (>40); LDL Cholesterol Calculated 105 mg/dL (<100); Potassium 4.1 mmol/L (3.3-5.1); Sodium 142 mmol/L (135-145); Triglycerides 74 mg/dL (<150)
== END 2024-08-11 07:12 | disposition home or self-care (01) ==
LOC: HO.LAB 07:11
PROVIDERS: PCP Internal Medicine; Visit Provider Internal Medicine
DX: Z00.00 Encounter for general adult medical examination without abnormal findings (principal); D64.9 Anemia, unspecified; E78.00 Pure hypercholesterolemia, unspecified; Z13.1 Encounter for screening for diabetes mellitus
CPT/HCPCS: 36415; 80053; 80061; 83036; 85025

== ENCOUNTER 2024-08-14 13:36 | Outpatient (AMB) | payer MEDICARE, BC, SELFPAY ==
[2024-08-14 13:43] VITALS: BP 112/74; PULSE 77; O2SAT 96; BMI 37.6
--- NOTE | 2024-08-14 13:43 | MHC.PC.OV ---
Vital Signs 08/14/24 13:43 Height 5 ft 2.5 in Weight 209 lb BMI 37.6 BP 112/74 Blood Pressure Location Lt brachial Position Sitting Pulse 77 Pulse Source Pulse Oximeter Pulse Oximetry (%) 96 Oxygen Delivery Method Room Air Intake Visit Reasons: 3mth f/u Statistical Typist Required: No Accompanied by: Self / Same As Patient Allergies Sulfa (Sulfonamide Antibiotics) [SULFA (SULFONAMIDE ANTIBIOTICS)] Allergy (Severe, Verified 08/14/24 14:44) ANAPHYLAXIS Penicillins [PENICILLINS] Allergy (Mild, Verified 08/14/24 14:44) RASH latex Adverse Reaction (Severe, Verified 08/14/24 14:44) Rash doxycycline Adverse Reaction (Mild, Verified 08/14/24 14:44) Abdominal Pain Medication List - Last Reconciled 08/14/24 by Osmany Browning MD albuterol sulfate 90 mcg/actuation (Ventolin HFA) 2 puffs inhalation Q6H PRN 30 days atorvastatin 10 mg PO BEDTIME gwkxlehgfp-yusprls-wvsgnain 50-325-40 mg 1 cap PO Q6-8H PRN 30 days calcium carbonate (Calcium 600) 600 mg PO DAILY cholecalciferol (vitamin D3) (Vitamin D3) 25 mcg PO DAILY fluticasone propionate 50 mcg/actuation 1 spray intranasal DAILY lidocaine 5% 1 patch topical DAILY loratadine (Claritin) 10 mg PO BEDTIME lorazepam 0.5 mg PO DAILY PRN 30 days metaxalone 800 mg PO TID PRN kvgnrtovvbuh-dpjylowm-ijgbot (Multivitamin 50 Plus tablet) 1 tab PO DAILY omeprazole 20 mg PO DAILY@0630 pregabalin 75 mg PO BID 30 days ropinirole 1 mg PO BEDTIME 90 days sumatriptan succinate 100 mg PO DAILY PRN 30 days tramadol 100 mg PO Q6H PRN venlafaxine ER 150 mg PO DAILY zolpidem ER 12.5 mg PO BEDTIME PRN 30 days Tobacco use date assessed: 08/14/24 Fall risk assessment: No Falls in past year Last assessed Fall Risk: 08/14/24 Dental Screening Dental Screen Date: 08/14/24 Did you have a dental visit in the last 12 months?: Yes Did you have a dental problem in the last 6 months where you did not have access to dental care?: No Was dental information given to patient?: Patient has dentist HPI 3mth f/u HPI Details Patient comes in today for her follow-up visit She underwent back surgery (Anterior Lumbar Interbody Fusion L4-L5 and L5-S1) with Dr. Erickson last month on 07/14/2024 States that her radicular symptoms have improved significantly since her surgery She still has chronic low back pains but these have been more manageable since her surgery and her current meds help keep her pain manageable States that she feels okay overall She denies any headaches or dizziness Denies any chest pains, no SOB No nausea/vomiting, no abdominal pain No change in bowel habits noted She had her follow up labs done a few days ago - to discuss her results [facility] Medical History (Updated 08/16/24 @ 12:58 by Osmany Browning MD) Degenerative joint disease of shoulder, right Osteoarthritis Arthritis Back pain Celiac sprue GERD (gastroesophageal reflux disease) Anxiety Numbness Sepsis Sleep apnea Sacroiliac dysfunction Migraine Burn injury Sinusitis chronic, frontal Osteopenia Obesity (BMI 30-39.9) Major depression, recurrent Insomnia Primary osteoarthritis Urinary frequency Mitral valve prolapse Allergic rhinitis Gastritis Pure hypercholesterolemia Restless leg syndrome Cervicalgia Lumbar degenerative disc disease Fibromyalgia Surgical History History of bilateral knee arthroplasty Hx of eye surgery History of cataract surgery History of carpal tunnel release History of bunionectomy S/P GINGER-BSO (total abdominal hysterectomy and bilateral salpingo-oophorectomy) History of repair of rotator cuff History of arthroscopy of both knees Hx of cholecystectomy Hx of endoscopy History of colonoscopy Family History Father History of cancer Mother History of cancer History of high blood pressure Hx of diabetes mellitus Social History Household Members: Significant Other Household Members Other:: DAUGHTER AND HER FAMILY Housing: House Are you a primary healthcare or medical to a significant other at home: No Do you presently have visiting nurse or other home services: No Alcohol intake: current Alcohol intake frequency: a few times a month Patient Tobacco Use Status: Never used Tobacco Tobacco use type: Cigarette e-Cigarette/Vaping Use: Never Used Second Hand Smoke Exposure: Yes service: No Current occupational status: retired Cognitive needs: No Hearing needs: No Vision needs: Yes Questionnaire PHQ-9 Over the last 2 weeks, how often have you been bothered by any of the following problems? 1. Little interest or pleasure in doing things: several days 2. Feeling down, depressed, or hopeless: not at all 3. Trouble falling or staying asleep, or sleeping too much: several days 4. Feeling tired or having little energy: several days 5. Poor appetite or overeating: not at all 6. Feeling bad about yourself - or that you are a failure or have let yourself or your family down: not at all 7. Trouble concentrating on things, such as reading the newspaper or watching television: more than half the days 8. Moving or speaking so slowly that other people could have noticed. Or the opposite - being so fidgety or restless that you have been moving around a lot more than usual: not at all 9. Thoughts that you would be better off or of hurting yourself in some way: not at all Total score: 5 Depression Screening Interpretation: Positive Depression Screening Follow-up: Existing condition and In treatment Depression Screening Done: Yes 35312 - PHQ-9 Billing: Yes Source: Developed by Drs. Elroy Roberts, Sunni Amaro, Yadiel Maya and colleagues, with an educational og from [email or web address]. Thrive Questionnaire Date Thrive assessed: 08/14/24 I am a: Patient What is your living situation today?: I have a steady place to live Within the past 12 months, did the food you bought not last and you didn't have the money to get more?: Never true Within the past 12 months, did you worry whether your food would run out before you got money to buy more?: Never true Do you have trouble paying for medicines?: No Do you have trouble getting transportation to medical appointments?: No Do you have trouble paying your heating and electricity bill?: No Do you have trouble taking care of your child, family member or friend?: No Do you have trouble with day-to-day activities such as bathing, preparing meals, shopping, managing finances, etc.?: No Are you currently unemployed and looking for a job?: No Are you interested in more education?: No Please select the resources that you would like help with: None Currently or been in a relationship where the following occur: No concerns reported THRIVE Score: 0 AUDIT C Alcohol Use Questionnaire (AUDIT-C) 1. How often do you have a drink containing alcohol?: 2-3 times a week 2. How many drinks containing alcohol do you have on a typical day when you are drinking?: 1 or 2 3. How often do you have six or more drinks on one occasion?: Never Total Score: 3 Score Reviewed/Action Taken: Yes PANFILO-7 AMB Questionnaire PANFILO-7 Date PANFILO - 7 assessed: 08/14/24 Feeling nervous, anxious, or on edge: 0 = Not at all Not being able to stop or control worryin = Not at all Worrying too much about different things: 0 = Not at all Trouble relaxin = Not at all Being so restless that it is hard to sit still: 0 = Not at all Becoming easily annoyed or irritable: 0 = Not at all Feeling afraid as if something awful might happen: 0 = Not at all Total PANFILO-7 score (0-4 normal; 5-9 mild; 10-14 moderate; 15-21 severe): 0 Source: Developed by Drs. Elroy Roberts, Sunni Amaro, Yadiel Maya and colleagues, with an educational og from [email or web address]. Review of Systems Const Denies chills, Denies fatigue, Denies fever(s) and Denies headache(s) ENT Denies dysphagia, Denies dizziness, Denies otalgia, Denies headache(s), Reports neck pain, Denies odynophagia and Denies sore throat Card Denies chest pain, Denies palpitations and Denies dyspnea Resp Denies cough, Denies dyspnea and Denies wheezing GI Denies abdominal pain, Denies constipation, Denies dysphagia, Denies heartburn, Denies diarrhea, Denies nausea, Denies odynophagia and Denies vomiting Denies difficulty voiding, Denies nocturia, Denies dysuria and Denies urinary urgency Musc Reports back pain (chronic), Reports arthralgias (involving multiple joints; increased over right shoulder for the past 2 wks) and Reports neck pain Skin/Breast Denies rash Neuro Denies dizziness, Denies headache(s), Reports paresthesias (in both hands, on and off) and Reports tremor(s) (on and off in the left hand) Psych Reports anxiety Endo Denies fatigue and Denies palpitations Aller/Immun Denies wheezing Physical exam (Primary Care) Vital Signs: Last Vital Signs Pulse 77 08/14/24 13:43 BP 112/74 08/14/24 13:43 Pulse Ox 96 08/14/24 13:43 Oxygen Delivery Method Room Air 08/14/24 13:43 BMI result Body Mass Index 37.6 Tobacco/Smoking Status: Tobacco use Status Tobacco use date assessed 08/14/24 08/14/24 13:45 Patient Tobacco Use Status Never used Tobacco 08/14/24 13:45 Tobacco use type Cigarette 08/14/24 13:45 e-Cigarette/Vaping Use Never Used 08/14/24 13:45 PHQ-9: PHQ-9 Score PHQ-9: Total score 5 08/14/24 14:46 Depression Screening Interpretation: Positive Depression Screening Follow-up: Existing condition and In treatment Thrive Assessment: Date of Thrive Assessment Date Thrive assessed 08/14/24 08/14/24 13:51 Currently or been in a relationship where the following occur: No concerns reported Const General: no acute distress and alert HENMT Ears: TM's normal bilaterally and EAC's normal Throat: Yes posterior oropharynx normal and Yes tonsils normal (no TP congestion noted) Neck Neck: Yes no lymphadenopathy and Yes tender Thyroid: Thyroid normal Resp Auscultation: clear to auscultation bilaterally, no rales and no wheezes Cardio Rate: regular rate Rhythm: regular rhythm Heart sounds: no murmurs GI Palpation (GI): Soft to palpation and nontender Auscultation: normal bowel sounds General: Yes no CVA tenderness Back/Spine/Pelvis Back: no CVA tenderness Cervical Spine: Cervical spine tenderness Thoracic/Lumbar Spine: lumbar spinal tenderness Sacroiliac joints: bilaterally tender to palpation Skin Rashes: no rashes Extrem General: Yes no clubbing, cyanosis or edema Right upper extremity: shoulder/upper arm Details: tenderness Location: of the A-C joint; no swelling and wrist Details: tenderness and Phalen's negative Left upper extremity: wrist ((+) mild tenderness - (-) Phalen's) and hand Details: normal to inspection (but (+) tremors noted) Results Reviewed Results Reviewed: Laboratory Tests 08/11/24 07:23 WBC 5.1 Hgb 11.9 L Hct 37.0 Plt Count 333 Sodium 142 Potassium 4.1 Creatinine 0.69 Estimated GFR > 60 Fasting Glucose 98 Hemoglobin A1c % 5.2 Calcium 9.7 AST 25 ALT 23 Triglycerides 74 Cholesterol 186 LDL Cholesterol, Calc 105 H HDL Cholesterol 67 Coding Level of Care Code Est Pt Level 4 (52966) Diagnoses Pure hypercholesterolemia E78.00 Mitral valve prolapse I34.1 Migraine without status migrainosus, not intractable, unspecified migraine type G43.909 Migraine type: unspecified Status migrainosus presence: without status migrainosus Intractability: not intractable Gastritis without bleeding, unspecified chronicity, unspecified gastritis type K29.70 Gastritis type: unspecified gastritis Chronicity: unspecified Gastritis bleeding: without bleeding Celiac disease/sprue K90.0 Allergic rhinitis, unspecified seasonality, unspecified trigger J30.9 Allergic rhinitis trigger: unspecified Allergic rhinitis seasonality: unspecified Fibromyalgia M79.7 Degeneration of intervertebral disc of lumbar region with discogenic back pain and lower extremity pain M51.362 Disc-related pain type: discogenic back pain and lower extremity pain Cervicalgia M54.2 Primary osteoarthritis, unspecified site M19.91 Osteoarthritis location: unspecified site Osteoarthritis of right shoulder, unspecified osteoarthritis type M19.011 Osteoarthritis type: unspecified Paresthesia of hand, bilateral R20.2 Tremor of left hand R25.1 Restless leg syndrome G25.81 Insomnia, unspecified type G47.00 Insomnia type: unspecified Episode of recurrent major depressive disorder, unspecified depression episode severity F33.9 Active/Remission status: currently active Major depression episode severity: unspecified Obesity (BMI 30-39.9) E66.9 Additional Codes PHQ-9 - 95597 - PHQ-9 Billing: Yes ([id number]) Assessment & Plan Assessment & Plan (1) Pure hypercholesterolemia: Code(s): E78.00 - Pure hypercholesterolemia, unspecified Category: Medical Plan: Results of her labs done a few days ago reviewed and discussed with patient Reinforced low cholesterol diet Continue Atorvastatin 10 mg QD Will recheck her labs and fasting lipids in 3 months for follow up (2) Mitral valve prolapse: Comment: Echocardiogram done in December 2019 showed (+) mild MVP, mild to moderate TR; LV systolic function is low normal with LVEF of around 50-55% Code(s): I34.1 - Nonrheumatic mitral (valve) prolapse Category: Medical Plan: Follow up with cardiology as scheduled for continuing surveillance (3) Migraine: Code(s): G43.909 - Migraine, unspecified, not intractable, without status migrainosus Category: Medical Qualifiers: Migraine type: unspecified Status migrainosus presence: without status migrainosus Intractability: not intractable Qualified Code(s): G43.909 - Migraine, unspecified, not intractable, without status migrainosus Plan: Stable -? reinforced avoidance of migraine triggers Continue Sumatriptan 100 mg once a day as needed and Fiorinal capsules 50-325-40 mg 1 capsule every 6-8 hours as needed Follow up with neurology as scheduled (4) Gastritis: Code(s): K29.70 - Gastritis, unspecified, without bleeding Category: Medical Qualifiers: Gastritis type: unspecified gastritis Chronicity: unspecified Gastritis bleeding: without bleeding Qualified Code(s): K29.70 - Gastritis, unspecified, without bleeding Plan: EGD done in 2019 revealed (+) gastric erythema, duodenal erosion with strictures; biopsies came back negative for malignancies Had repeat EGD? with dilation of strictures done a couple of years ago Continue Omeprazole 20 mg QD Follow-up with GI as scheduled (5) Celiac disease/sprue: Code(s): K90.0 - Celiac disease Category: Medical Plan: (+) Hx of celiac disease Patient's labs done last year still showed the presence of anti-Gliadin and transglutaminase IgA antibodies consistent with celiac disease Reinforced strict compliance with a gluten free diet (6) Allergic rhinitis: Code(s): J30.9 - Allergic rhinitis, unspecified Category: Medical Qualifiers: Allergic rhinitis trigger: unspecified Allergic rhinitis seasonality: unspecified Qualified Code(s): J30.9 - Allergic rhinitis, unspecified Plan: Continue Fluticasone 50 mcg nasal spray QD PRN (7) Fibromyalgia: Code(s): M79.7 - Fibromyalgia Category: Medical Plan: Continue Lyrica 75 mg BID She is encouraged again to continue with regular exercises to help manage her fibromyalgia symptoms better (8) Lumbar degenerative disc disease: Comment: Grade 1-2 anterolisthesis L5/S1 with moderate to severe bilateral L5 foraminal narrowing Code(s): M51.36 - Other intervertebral disc degeneration, lumbar region Category: Medical Qualifiers: Disc-related pain type: discogenic back pain and lower extremity pain Qualified Code(s): M51.362 - Other intervertebral disc degeneration, lumbar region with discogenic back pain and lower extremity pain Plan: Reinforced activity and weight-lifting restrictions She was going to [facility] for facet injections and pain management in the past but is now seeing [facility] She has had several injections into her lower back over the past year but did not seem to have responded much to them so far although she has been receiving trigger point injections into her lower back with some relief recently She also recently underwent L5-S1 basivertebral nerve ablation done with pain management a few months ago but unfortunately did not respond effectively to the treatment She was recently referred by pain management to Dr. Erickson for further evaluation and she recently underwent L4-5, L5-S1 ALIF - procedure on 07/14/2024 - she now feels that the surgery has helped a lot Follow up with neurosurgery as scheduled Continue Tramadol 50 mg 2 tablets every 6 hours as needed, Lidocaine patch 5% 1 patch for 12 hours daily as needed and Metaxalone 800 mg TID PRN (9) Cervicalgia: Code(s): M54.2 - Cervicalgia Category: Medical Plan: Follow up with [facility] pain management as scheduled She has been seen by Dr. Erickson for this as well and was advised that her recent cervical spine MRI done in February 2024 revealed no acute neurologic impingement and there are no surgical indications for her neck at this time (10) Primary osteoarthritis: Code(s): M19.91 - Primary osteoarthritis, unspecified site Category: Medical Qualifiers: Osteoarthritis location: unspecified site Qualified Code(s): M19.91 - Primary osteoarthritis, unspecified site Plan: Continue OTC Tylenol PRN for pain; Tramadol also helps She was taking NSAIDs in the past but was advised to stop last year when she was diagnosed with gastritis (11) Degenerative joint disease of shoulder, right: Code(s): M19.011 - Primary osteoarthritis, right shoulder Category: Medical Qualifiers: Osteoarthritis type: unspecified Qualified Code(s): M19.011 - Primary osteoarthritis, right shoulder Plan: Right shoulder x-rays done a few months ago revealed (+) advanced degenerative changes with narrowing of the subacromial space concerning for rotator cuff pathology Follow up with orthopedics as scheduled (12) Paresthesia of hand, bilateral: Code(s): R20.2 - Paresthesia of skin Category: Medical Plan: (+) Hx of CTS Repeat EMG & NCV done last year in December 2022 came out NORMAL (13) Tremor of left hand: Code(s): R25.1 - Tremor, unspecified Category: Medical Plan: She was advised that her EMG & NCV from December 2022 came out normal Follow up with neurology as scheduled States that botox injection was originally planned for the dystonia on her upper extremities but she could not afford the co-pay that she's had to pay out of pocket so far (14) Restless leg syndrome: Code(s): G25.81 - Restless legs syndrome Category: Medical Plan: Continue Ropinirole 0.5 mg Q HS - symptoms have been well-controlled on her current Rx (15) Insomnia: Code(s): G47.00 - Insomnia, unspecified Category: Medical Qualifiers: Insomnia type: unspecified Qualified Code(s): G47.00 - Insomnia, unspecified Plan: Sleep hygiene reinforced Continue Zolpidem ER 12.5 mg Q HS PRN (16) Major depression, recurrent: Code(s): F33.9 - Major depressive disorder, recurrent, unspecified Category: Medical Qualifiers: Active/Remission status: currently active Major depression episode severity: unspecified Qualified Code(s): F33.9 - Major depressive disorder, recurrent, unspecified Plan: Continue Venlafaxine ER 150 mg QD (17) Obesity (BMI 30-39.9): Code(s): E66.9 - Obesity, unspecified Category: Medical Plan: Reinforced diet; exercise and weight loss are unrealistic expectations at present due to patient's numerous physical issues and comorbidities Plan Follow up in 3 months Orders: Orders Complete Blood Count Auto Diff 3 Months D64.9 - Anemia, unspecified Comprehensive [place]. Panel Fast 3 Months E78.00 - Pure hypercholesterolemia, unspecified Vitamin B12 and Folate 3 Months E53.8 - Deficiency of other specified B group vitamins UA CC w/rflx Micro + Cult 3 Months R30.0 - Dysuria TSH reflex Free T4 3 Months E78.00 - Pure hypercholesterolemia, unspecified Lipid Panel 3 Months E78.00 - Pure hypercholesterolemia, unspecified Erythrocyte Sedimentation Rate 3 Months M79.7 - Fibromyalgia
== END 2024-08-14 14:49 | disposition home or self-care (01) ==
PROVIDERS: PCP Internal Medicine; Visit Provider Internal Medicine
DX: E78.00 Pure hypercholesterolemia, unspecified (principal); I34.1 Nonrheumatic mitral (valve) prolapse; G43.909 Migraine, unspecified, not intractable, without status migrainosus; F33.9 Major depressive disorder, recurrent, unspecified; K29.70 Gastritis, unspecified, without bleeding; K90.0 Celiac disease; J30.9 Allergic rhinitis, unspecified; M79.7 Fibromyalgia; M51.362 Other intervertebral disc degeneration, lumbar region with discogenic back pain and lower extremity pain; M54.2 Cervicalgia; M19.011 Primary osteoarthritis, right shoulder

== ENCOUNTER → 2024-08-14 13:36 | Outpatient (BNVA) | payer MEDICARE, BC, SELFPAY | PROVIDERS: PCP Internal Medicine; Visit Provider Internal Medicine | DX: E78.00 Pure hypercholesterolemia, unspecified (principal); I34.1 Nonrheumatic mitral (valve) prolapse; G43.909 Migraine, unspecified, not intractable, without status migrainosus; K29.70 Gastritis, unspecified, without bleeding; K90.0 Celiac disease; J30.9 Allergic rhinitis, unspecified; M79.7 Fibromyalgia; M51.362 Other intervertebral disc degeneration, lumbar region with discogenic back pain and lower extremity pain; M54.2 Cervicalgia; M19.91 Primary osteoarthritis, unspecified site; M19.011 Primary osteoarthritis, right shoulder; R20.2 Paresthesia of skin; G25.81 Restless legs syndrome; G47.00 Insomnia, unspecified; F33.9 Major depressive disorder, recurrent, unspecified; E66.9 Obesity, unspecified | CPT/HCPCS: 96127; 99212 ==

== ENCOUNTER 2024-08-21 09:29 | Outpatient (AMB) | payer MEDICARE, BC, SELFPAY ==
--- NOTE | 2024-08-21 09:55 | A.OFFVIS_ITS ---
Vital Signs 08/21/24 09:57 Height 5 ft 2.5 in Weight 209 lb BMI 37.6 BP 146/67 H Blood Pressure Location Lt brachial Position Sitting Respiration 14 Pulse 80 Pulse Source Pulse Oximeter Pulse Oximetry (%) 98 Oxygen Delivery Method Room Air Intake Visit Reasons: Trigger Point Injections Allergies Sulfa (Sulfonamide Antibiotics) [SULFA (SULFONAMIDE ANTIBIOTICS)] Allergy (Severe, Verified 08/21/24 10:03) ANAPHYLAXIS Penicillins [PENICILLINS] Allergy (Mild, Verified 08/21/24 10:03) RASH latex Adverse Reaction (Severe, Verified 08/21/24 10:03) Rash doxycycline Adverse Reaction (Mild, Verified 08/21/24 10:03) Abdominal Pain Medication List - Last Reconciled 08/21/24 by Bhakti Avila LPN albuterol sulfate 90 mcg/actuation (Ventolin HFA) 2 puffs inhalation Q6H PRN 30 days atorvastatin 10 mg PO BEDTIME vgmxusxzhn-tnkwzbj-ztwrglbo 50-325-40 mg 1 cap PO Q6-8H PRN 30 days calcium carbonate (Calcium 600) 600 mg PO DAILY cholecalciferol (vitamin D3) (Vitamin D3) 25 mcg PO DAILY fluticasone propionate 50 mcg/actuation 1 spray intranasal DAILY lidocaine 5% 1 patch topical DAILY loratadine (Claritin) 10 mg PO BEDTIME lorazepam 0.5 mg PO DAILY PRN 30 days metaxalone 800 mg PO TID PRN wtxyzarqxoqs-yesgmrfk-onqrdc (Multivitamin 50 Plus tablet) 1 tab PO DAILY omeprazole 20 mg PO DAILY@0630 pregabalin 75 mg PO BID 30 days ropinirole 1 mg PO BEDTIME 90 days sumatriptan succinate 100 mg PO DAILY PRN 30 days tramadol 100 mg PO Q6H PRN tramadol 100 mg (2 x 50 mg) PO Q6H PRN 48 days venlafaxine ER 150 mg PO DAILY zolpidem ER 12.5 mg PO BEDTIME PRN 30 days HPI HPI Trigger Point Injections: Details: 68-year-old female who presents today to the office for trigger point injections. Denies any recent cough, cold, infection, fever or other significant changes in medical history since last office visit.? Past Procedures: 04/08/24: trigger point injections: 75% relief. 01/01/24: L4, L5, S1 basivertebral nerve ablation: More than 70% relief for 1 week with subsequent return of symptoms 12/02/2023: Trigger point injections: % relief. 08/23/2023: Trigger point injections: 50% relief. 07/24/23: Interlaminar epidural steroid injection, L5-S1, right parasaggital: No relief. 04/05/23: Trigger point injections: 50% relief for 3 weeks 02/20/23: Sacroiliac Joint Injection, Bilateral: 80% relief. 06/20/22: Bilateral Intraarticular SIJ Injection (Depo 20mg each side) ? 80% relief for about 5 months. 04/04/22: GTB Injection ? 70% relief. 01/10/22: Bilateral Intra-articular SIJ Injection ? 60% relief for three months. REPLACED BY [facility] Medical History (Updated 08/16/24 @ 12:58 by Osmany Browning MD) Degenerative joint disease of shoulder, right Osteoarthritis Arthritis Back pain Celiac sprue GERD (gastroesophageal reflux disease) Anxiety Numbness Sepsis Sleep apnea Sacroiliac dysfunction Migraine Burn injury Sinusitis chronic, frontal Osteopenia Obesity (BMI 30-39.9) Major depression, recurrent Insomnia Primary osteoarthritis Urinary frequency Mitral valve prolapse Allergic rhinitis Gastritis Pure hypercholesterolemia Restless leg syndrome Cervicalgia Lumbar degenerative disc disease Fibromyalgia Surgical History (Updated 08/16/24 @ 13:19 by Osmany Browning MD) History of lumbar spinal fusion History of bilateral knee arthroplasty Hx of eye surgery History of cataract surgery History of carpal tunnel release History of bunionectomy S/P GINGER-BSO (total abdominal hysterectomy and bilateral salpingo-oophorectomy) History of repair of rotator cuff History of arthroscopy of both knees Hx of cholecystectomy Hx of endoscopy History of colonoscopy Family History Father History of cancer Mother History of cancer History of high blood pressure Hx of diabetes mellitus Social History Household Members: Significant Other Household Members Other:: DAUGHTER AND HER FAMILY Housing: House Are you a primary behavioral health care coordinator to a significant other at home: No Do you presently have visiting nurse or other home services: No Alcohol intake: current Alcohol intake frequency: a few times a month Patient Tobacco Use Status: Never used Tobacco Tobacco use type: Cigarette e-Cigarette/Vaping Use: Never Used Second Hand Smoke Exposure: Yes service: No Current occupational status: retired Cognitive needs: No Hearing needs: No Vision needs: Yes Review of Systems Const All systems reviewed & are unremarkable except as noted in HPI and below Physical Exam Vital Signs: Last Vital Signs Pulse 80 08/21/24 09:57 Resp 14 08/21/24 09:57 BP 146/67 H 08/21/24 09:57 Pulse Ox 98 08/21/24 09:57 Oxygen Delivery Method Room Air 08/21/24 09:57 BMI result Body Mass Index 37.6 General: Appears afebrile. Alert and oriented. Mood and affect appropriate. Follows and participates in conversation appropriately. Respiratory effort is unlabored. Able to transition from sit to stand unassisted. Ambulates with bilaterally normal heel strike and toe off. Office Procedures Injection Trigger Point Multi Pre-procedure diagnosis: Myofascial pain Post-procedure diagnosis: Myofascial pain Site and number of trigger points: Bilateral rhomboids. bilateral trapezius bilateral occipitalis. Bilateral cervical paraspinal Solution: Total volume administered 10 ml (0.25% ropivacaine) The procedure, its benefits, and its risks were explained to the patient and all questions were answered. Prior to the start of the procedure, a ?time out? was performed to confirm correct patient, procedure, and laterality. Trigger points were identified by manual palpation and marked. The skin was cleaned with Chloraprep. A 1.5 inch 25 G needle was used. Each of the trigger points were approximated and elevated in the direction away from the body. Dry needling then took place for five seconds. Approximately 0.5 ml to 1 ml of injectate was delivered to the trigger point followed by dry needling for five seconds. This process was repeated at each trigger point site. The patient tolerated the procedure well. Post-procedure, breath sounds were equal at both sides of the chest. The patient tolerated the procedure well, without complication. The patient denied any numbness, paresthesia, or weakness. Post-procedure vitals were recorded as part of the nursing discharge note in electronic medical record. Following a period of observation, the patient was discharged in stable condition with written discharge instructions. Trigger Point Multiple: 32709- Trigger point injection =/>3 Results Reviewed Results Reviewed: No imaging is available for review. Assessment & Plan Assessment & Plan (1) Myofascial pain: Code(s): M79.18 - Myalgia, other site Category: Medical Plan Patient is status post trigger point injections. Patient tolerated procedure well and was discharged home in stable condition with discharge instructions.? All questions were answered. Follow-up as needed. Scribed for Dr. Weaver by Sreekanth Hernández, medical record coder, on 08/21/2024. I, Dr. Weaver, have personally reviewed and agree with the information entered by the scribe. Coding Level of Care Code Procedure Only Diagnoses Myofascial pain M79.18 CPT Codes Details - Trigger Point Multiple: 04103- Trigger point injection =/>3 ([id number])
[2024-08-21 09:57] VITALS: BP 146/67; PULSE 80; RESP 14; O2SAT 98; BMI 37.6
== END 2024-08-21 10:30 | disposition home or self-care (01) ==
PROVIDERS: PCP Internal Medicine; Visit Provider Internal Medicine
DX: M79.18 Myalgia, other site (principal)
CPT/HCPCS: 20553

== ENCOUNTER → 2024-08-21 09:29 | Outpatient (BNVA) | payer MEDICARE, BC, SELFPAY | PROVIDERS: PCP Internal Medicine; Visit Provider Internal Medicine | DX: M79.18 Myalgia, other site (principal) | CPT/HCPCS: 20553; J2795 ==

== ENCOUNTER 2024-09-15 13:03 | Outpatient (REF) | payer MEDICARE, BC, SELFPAY ==
--- NOTE | ~2024-09-15 | XR_ITS ---
EXAMINATION: XR LUMBAR SPINE CLINICAL INFORMATION: Spondylolisthesis, lumbosacral region M43.17. COMPARISON: XR Lumbar spine 07/14/2024 TECHNIQUE: 4 views of the lumbar spine. FINDINGS: Status post posterior spinal fusion at L4-S1. Interbody devices at L4-5, L5-S1. Intact hardware. No evidence of hardware failure. Mild retrolisthesis of T12 on L1. No evidence of significant subluxation on the flexion-extension views. Surgical clips in the right abdomen.. No evidence of acute fracture. XR/XR lumbar spine 4V min IMPRESSION: Status post lower lumbar spinal surgery as detailed above. Study is assigned/presented to me for interpretation on Oct 22, 2024 Electronically signed by: Gary Ferro MD 10/22/2024 04:32 PM SONY
== END 2024-09-15 13:04 | disposition home or self-care (01) ==
LOC: HO.HOSX 13:03
PROVIDERS: Visit Provider Physician Assistant
DX: M43.17 Spondylolisthesis, lumbosacral region (principal); Z98.1 Arthrodesis status
CPT/HCPCS: 72110; 99212

== ENCOUNTER 2024-09-15 13:26 | Outpatient (AMB) | payer MEDICARE, BC, SELFPAY ==
--- NOTE | 2024-09-15 13:51 | HO.SPINEOV ---
Intake Visit Reasons: 2nd post op with Xrays Intake Note: Ms. Hdz is here for her 2nd post op with xrays appointment. Clam Picker Required: No Allergies Sulfa (Sulfonamide Antibiotics) [SULFA (SULFONAMIDE ANTIBIOTICS)] Allergy (Severe, Verified 08/21/24 10:03) ANAPHYLAXIS Penicillins [PENICILLINS] Allergy (Mild, Verified 08/21/24 10:03) RASH latex Adverse Reaction (Severe, Verified 08/21/24 10:03) Rash doxycycline Adverse Reaction (Mild, Verified 08/21/24 10:03) Abdominal Pain Assessment & Plan Assessment & Plan (1) Spondylolisthesis: Comment: s/p anterior lumbar interbody fusion L4-L5 and L5-S1 with anterior and posterior instrumentation with Dr. Ercikson 07/14/2024 Code(s): M43.10 - Spondylolisthesis, site unspecified Category: Medical Qualifiers: Spinal region: lumbosacral Qualified Code(s): M43.17 - Spondylolisthesis, lumbosacral region Plan Procedure: L4-S1 MARRY Sanchez comes in today for her 2nd postoperative visit. She continues to report that she has been doing very well since her surgery and denies any concerns or complaints. She is very happy with the surgery, and requested information regarding public reviews for our practice so she can inform other people of how well she has done. She reports that most recently during our snow storms in the last few weeks she was able to shovel both her driveway and her side while without issue. She did not experience any pain during or after. She has essentially done exceptionally well since her surgery. She takes no medications for pain. I reviewed her x-ray imaging during this visit which shows stable placement of her instrumentation. No new neurological deficits. The patient ambulates well and rises from a seated position without difficulty. I will be scheduling a CT scan for Laura to have completed roughly 10 months out from surgery to evaluate for fusion progress. I would like to follow up again with her again 1 year from surgery. Blayne Erickson MD,PhD [facility] [place] Orders: Orders XR lumbar spine 4V min Today M43.17 - Spondylolisthesis, lumbosacral region CT lumbar spine wo IV con Today M51.369 - Other intervertebral disc degeneration, lumbar region without mention of lumbar back pain or lower extremity pain Coding Level of Care Code Global (32013) Diagnoses Spondylolisthesis of lumbosacral region M43.17 Spinal region: lumbosacral
== END 2024-09-15 14:28 | disposition home or self-care (01) ==
PROVIDERS: PCP Internal Medicine; Visit Provider Physician Assistant
DX: M43.17 Spondylolisthesis, lumbosacral region (principal)
CPT/HCPCS: 99024

== ENCOUNTER → 2024-11-13 09:28 | Outpatient (BNVA) | payer MEDICARE, BC, SELFPAY | PROVIDERS: PCP Internal Medicine; Visit Provider Internal Medicine | DX: M79.18 Myalgia, other site (principal) | CPT/HCPCS: 20553; J2795 ==

== ENCOUNTER → 2024-11-13 09:28 | Outpatient (AMB) | payer MEDICARE, BC, SELFPAY | END | disposition home or self-care (01) | PROVIDERS: PCP Internal Medicine; Visit Provider Internal Medicine | CPT/HCPCS: 20553 ==

== ENCOUNTER 2024-11-27 09:17 | Outpatient (REF) | payer MEDICARE, BC, SELFPAY ==
[2024-11-27 09:32] LABS: MANUAL DIFF FLAG NO
--- OUTSIDE RECORDS SUMMARY | 2024-11-27 09:45 | XMS_ITS | Data Portability ---
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 SCANS: Lumbar MRI (done at [facility] on 03/26/2017) findings/interpreta tion: Multilevel spondylosis. Disc space collapse L5-S1 with left posterolateral disc bulge. Spondylolisthesis L4-5, L5-S1. Disc space narrowing L3-4. Facet hypertrophy L4-5, L5-S1. Lumbar X-ray (AP, lateral, flexion, extension views) findings/interpreta tion: Spondylosis. Disc space collapse L5-S1. Spondylolisthesis L4-5, L5-S1. DISCOGRAM (performed on 04/17/[address] Quintana) findings: Strongly positive L4-5. Negative L3-4. PLAN: Discussed with her an ALIF L4-5, L5-S1. Indications, risks, and benefits were explained. All her questions were answered. Referral to Dr Paris, the approach surgeon, for consideration of the ALIF. Follow up after she sees Dr Paris. [email or web address] Not available 06/06/2017 21:29:56 Plan of Treatment Reminders Order Date Submit Date Provider Last Modified By Organization Details Last Modified Time Details Appointments None recorded. Lab drug screen, urine 2017 018 Main Office, [address], [address], [place], [address], 8 16:36:58 drug screen, urine 2016 017 [facility] Main Office, [address], [address], [place], [address], 7 14:46:03 Referral general surgeon referral - possible ALIF L4/5 L5/S1 please call patient with appt 2016 017 [email or web address] Duran Paris MD, [address], [place], [address], 7 21:27:09 Procedures None recorded. Surgeries None recorded. Imaging XR, cervical spine, 4 or 5 view 2017 018 [email or web address] Main Office, [address], [address], [place], [address], 8 08:25:32 Medication Orders hydrocodone 10 mg-acetamin ophen 325 mg tablet 2016 017 [email or web address] Not available 7 12:54:37 Patient Targets Encounter Date Encounter Id Patient Goals Patient Target Last Modified By Organization Details Last Modified Time [facility] record checked.Low risk UDTBased on the most recent SOAP score, a validated risk assessment tool for opiate prescribing, the patient is at low risk of opiate misuse. Therefore, it is clinically necessary to check for the presence or absence of the following agents in today's drug test: Amphetamines, benzodiazepin es, buprenorphine , carisoprodol, cocaine, ethyl glucuronide, fentanyl, marijuana, meperidine, methadone, opiates, tapentadol, and tramadol. [email or web address] Not available 08/06/2017 12:59:51 we'll continue current medications.D ROSARIO record checked.Recom mend Botox for migraines. [email or web address] Not available 11/05/2017 12:11:16 [facility] website checked.Naresh nue hydrocodone, Lidoderm patches, Fioricet, Arthrotec, Botox her headaches. [email or web address] Not available 05/04/2018 15:26:02 Patient Instructions Encounter Date Encounter Id Patient Instructions Last Modified By Organization Details Last Modified Time 11/05/2017 [id number] neck pain: care instructions [email or web address] Not available 11/05/2017 12:12:08 04/28/2018 [id number] neck pain: care instructions [email or web address] Not available 04/29/2018 19:29:13 Reason for Referral General Surgeon Referral for Spondylolisthesis consideration of ALIF possible ALIF L4/5 L5/S1 please call patient with appt Referring Physician: Volodymyr Bingham, Orthopedic Surgery, Encounter Date: 05/28/2017 Results Created Date Observation Date Name Description Value Unit Range Abnormal Flag Note LastModifiedBy Organization Detail LastModifiedTime 08/06/20 17 08/06/2017 drug scree n, [place] 08055 NG/mL >=5 normal COMPL IANT: Test resul t is consi stent and expec vivi with presc ribed drug. Not Available [facility] [address] [place] [address], [address], 08/12/2017 16:12:18 08/06/20 17 08/06/2017 drug scree n, urine methadone ur CMP 53135 NG/mL >=200 normal COMPL IANT: Test resul t is consi stent and expec vivi with presc ribed drug. Not Available [facility] [address] [place] [address], [address], 08/12/2017 16:12:18 08/06/20 17 08/06/2017 drug scree n, urine zolpidem ur CMP 8050 NG/mL >=4 normal COMPL IANT: Test resul t is consi stent and expec vivi with presc ribed drug. Not Available [facility] [address], [place], [address], 08/12/2017 16:12:18 08/06/20 17 08/06/2017 drug scree n, urine pregabalin ur CMP 115 mcg/m L >=5 normal COMPL IANT: Test resul t is consi stent and expec vivi with presc ribed drug. Not Available [facility] [address] [place], [address], 08/12/2017 16:12:18 08/06/20 17 08/06/2017 drug scree n, urine butalbital ur CMP 1990 NG/mL >=200 normal COMPL IANT: Test resul t is consi stent and expec vivi with presc ribed drug. Not Available [facility] [address] [place] [address], [place], [address], 08/12/2017 16:12:18 08/06/20 17 08/06/2017 drug scree n, urine cathinones synthetic ur ql scn <25 NG/mL >=25 NONE DETEC VIVI Not Available [facility] [address] [place] [address], [place], [address], 08/12/2017 16:12:18 08/06/20 17 08/06/2017 drug scree n, urine buprenorphin e ur ql cfm <1 NG/mL >=1 NONE DETEC VIVI Not Available [facility] [address] [place] [address], [place], [address], 08/12/2017 16:12:18 08/06/20 17 08/06/2017 drug scree n, urine alcohol metabolites ur ql cfm <200 NG/mL >=200 NONE DETEC VIVI Not Available [facility] [address] [place] [address], [place], [address], 08/12/2017 16:12:18 08/06/20 17 08/06/2017 drug scree n, urine ethyl glucuronide ur cfm-mcnc <500 NG/mL >=500 NONE DETEC VIVI Not Available [facility] [address] [place] [address], [place], [address], 08/12/2017 16:12:18 08/06/20 17 08/06/2017 drug scree n, urine ethyl sulfate ur cfm-mcnc <200 NG/mL >=200 NONE DETEC VIVI Not Available [facility] [address] [place] [address], [place], [address], 08/12/2017 16:12:18 08/06/20 17 08/06/2017 drug scree n, urine tapentadol ur ql cfm <100 NG/mL >=100 NONE DETEC VIVI Not Available [employer] [address] [place] [address], [place], [address], 08/12/2017 16:12:18 08/06/20 17 08/06/2017 drug scree n, urine amphetamines ur ql cfm <250 NG/mL >=250 NONE DETEC VIVI Not Available [facility] [address] [place] [address], [place], [address], 08/12/2017 16:12:18 08/06/20 17 08/06/2017 drug scree n, urine barbiturates ur ql cfm >=200 NG/mL >=200 POSIT TIMOTEO Not Available [facility] [address] [place] [address], [place], [address], 08/12/2017 16:12:18 08/06/20 17 08/06/2017 drug scree n, urine butalbital ur cfm-mcnc 1990 NG/mL >=200 POSIT TIMOTEO Not Available [facility] [address] [place] [address], [place], [address], 08/12/2017 16:12:18 08/06/20 17 08/06/2017 drug scree n, urine benzodiaz ur ql cfm <50 NG/mL >=50 NONE DETEC VIVI Not Available [facility] [address] [place] [address], [place], [address], 08/12/2017 16:12:18 08/06/20 17 08/06/2017 drug scree n, urine THC ur ql scn <5 NG/mL >=5 NONE DETEC VIVI Not Available [facility] [address] [place] [address], [place], [address], 08/12/2017 16:12:18 08/06/20 17 08/06/2017 drug scree n, urine gabapentinpr egabalin ur ql cfm >=5 mcg/m L >=5 POSIT TIMOTEO Not Available [facility] [address] [place] [address], [address], 08/12/2017 16:12:18 08/06/20 17 08/06/2017 drug scree n, urine pregabalin ur cfm-mcnc 115 mcg/m L >=5 POSIT TIMOTEO Not Available [facility] [address] [place] [address], [place], [address], 08/12/2017 16:12:18 08/06/20 17 08/06/2017 drug scree n, urine sedative hypnotics ur ql cfm >=4 NG/mL >=4 POSIT TIMOTEO Not Available [facility] [address] [place] [address], [address], 08/12/2017 16:12:18 08/06/20 17 08/06/2017 drug scree n, urine zolpidem ur cfm-mcnc 9 NG/mL >=4 POSIT TIMOTEO Not Available [facility] [address] [place] [address], [address], 08/12/2017 16:12:18 08/06/20 17 08/06/2017 drug scree n, urine zolpidem [id number] b ur cfm 8040 NG/mL >=4 POSIT TIMOTEO Not Available [facility] [address] [place] [address], [address], 08/12/2017 16:12:18 08/06/20 17 08/06/2017 drug scree n, urine bze ur ql cfm <50 NG/mL >=50 NONE DETEC VIVI Not Available [facility] [address] [place] [address], [place], [address], 08/12/2017 16:12:18 08/06/20 17 08/06/2017 drug scree n, urine opiates ur ql cfm <100 NG/mL >=100 NONE DETEC VIVI Not Available [facility] [address] [place] [address], [place], [address], 08/12/2017 16:12:18 08/06/20 17 08/06/2017 drug scree n, urine 6mam ur ql cfm <10 NG/mL >=10 NONE DETEC VIVI Not Available [facility] [address] [place] [address], [address], 08/12/2017 16:12:18 08/06/20 17 08/06/2017 drug scree n, urine methadone ur ql cfm >=200 NG/mL >=200 POSIT TIMOTEO Not Available [facility] [address] [place] [address], [address], 08/12/2017 16:12:18 08/06/20 17 08/06/2017 drug scree n, urine methadone ur cfm-mcnc 939 NG/mL >=200 POSIT TIMOTEO Not Available [facility] [address] [place] [address], [place], [address], 08/12/2017 16:12:18 08/06/20 17 08/06/2017 drug scree n, urine EDDP ur cfm-mcnc 60595 NG/mL >=200 POSIT TIMOTEO Not Available [facility] [address] [place] [address], [place], [address], 08/12/2017 16:12:18 08/06/20 17 08/06/2017 drug scree n, urine meperidine ur ql cfm <100 NG/mL >=100 NONE DETEC VIVI Not Available [facility] [address] [place] [address], [place], [address], 08/12/2017 16:12:18 08/06/20 17 08/06/2017 drug scree n, urine fentanyl+nor fentanyl ur ql cfm <5 NG/mL >=5 NONE DETEC VIVI Not Available [facility] [address] [place] [address], [place], [address], 08/12/2017 16:12:18 08/06/20 17 08/06/2017 drug scree n, urine carisoprodol +meprob ur ql scn <200 NG/mL >=200 NONE DETEC VIVI Not Available [facility] [address] [place] [address], [address], 08/12/2017 16:12:18 08/06/20 17 08/06/2017 drug scree n, urine tramadol ur ql cfm <100 NG/mL >=100 NONE DETEC VIVI Not Available [facility] [address] [place] [address], [address], 08/12/2017 16:12:18 08/06/20 17 08/06/2017 drug scree n, urine cotinine ur ql cfm <125 NG/mL >=125 NONE DETEC VIVI Not Available [facility] [address] [place] [address], [place], [address], 08/12/2017 16:12:18 08/06/20 17 08/06/2017 drug scree n, urine sn reuptake inhibitors ur ql >=5 NG/mL >=5 POSIT TIMOTEO Not Available [facility] [address] [place] [address], [address], 08/12/2017 16:12:18 08/06/20 17 08/06/2017 drug scree n, urine venlafaxine ur cfm-mcnc 4130 NG/mL >=5 POSIT TIMOTEO Not Available [facility] [address] [place] [address], [address], 08/12/2017 16:12:18 08/06/20 17 08/06/2017 drug scree n, urine odv ur cfm-mcnc 06661 NG/mL >=5 POSIT TIMOTEO Not Available [facility] [address] [place] [address], [address], 08/12/2017 16:12:18 08/06/20 17 08/06/2017 drug scree n, urine cannabinoids synthetic ql scn <2 NG/mL >=2 NONE DETEC VIVI Not Available [facility] [address] [place] [address], [address], 08/12/2017 16:12:18 08/06/20 17 08/06/2017 drug scree n, urine nitrite ur-mcnc <200 mcg/m L <200 normal NOEMI L Not Available [facility] [address] [place] [address], [address], 08/12/2017 16:12:18 08/06/20 17 08/06/2017 drug scree n, urine chromate ur-mcnc <50 mcg/m L <50 normal NOEMI L Not Available [facility] [address] [facility], [place], [address], 08/12/2017 16:12:18 08/06/20 17 08/06/2017 drug scree n, urine pH ur 8.4 hallman 3.5 - 9.0 normal NOEMI L Not Available [facility] [address] [place], [address], 08/12/2017 16:12:18 08/06/20 17 08/06/2017 drug scree n, urine creat ur-mcnc 111 mg/dL >=2 normal NOEMI L Not Available [facility] [address] [place] [address], [place], [address], 08/12/2017 16:12:18 08/06/20 17 08/06/2017 drug scree n, urine sp gr ur 1.0182 hallman >=1.00 20 normal NOEMI L Not Available [facility] [address] [place] [address], [address], 08/12/2017 16:12:18 Result Notes None recorded. Problems Name Problem SNOMED Code Status Onset Date Resolution Date Notes Provider Name and Address Organization Details Recorded Time Arthropath y 152498491 Active 2015 Not Available [facility] 6 10:18:55 Primary central sleep apnea 1197913572605 Active 2015 Not Available [facility] 6 10:18:55 Low back pain 015742435 Active 2015 Not Available [facility] 6 10:18:55 Impingemen t syndrome of shoulder region 553341686 Active 2015 Not Available [facility] 6 10:18:55 Lumbosacra l radiculopa thy 8423893 Active 2015 Not Available [facility] 6 10:18:55 Idiopathic osteoarthr itis 513543552 Active 2014 Not Available [facility] 6 10:18:55 Problem Notes None recorded. Procedures Surgical History Date Name Laterality Status Provider Name and Address Organization Details Recorded Time 01/28/20 18 Botox Initial completed MD Vaibhav Cotter[address], [place], [address], [facility] 01/27/2018 16:07:03 11/05/19 18 Trigger Point Injection completed MD Zay Cotter,[address], [place], [address], [facility] 11/05/2017 12:11:46 08/06/20 17 Trigger Point Injection completed MD Zay Cotter [address], [place], [address], [facility] 08/06/2017 12:18:34 05/02/20 17 Trigger Point Injection completed MD Zay Cotter,[address], [place], [address], [facility] 05/02/2017 14:55:38 04/17/20 17 EW Discography completed MD Zay Cotter,[address], [place], [address], [facility] 04/17/2017 13:38:35 01/24/20 17 EW 22g Transforaminal Epidural Steroid Injection completed Jennifer Quintana MD [address], [place], [address], [facility] 01/23/2017 14:34:07 10/07/19 17 Rotator Cuff Surgery completed Pam Kilgore [facility] 01/27/2018 11:02:47 10/07/19 14 Knee Surgery completed Molly Pate [facility] 10/10/2016 09:07:15 10/07/19 12 Eye Surgery completed Molly Pate [facility] 10/10/2016 09:07:15 10/07/19 12 Knee Surgery completed Molly Pate [facility] 10/10/2016 09:07:15 10/07/19 11 Hand Surgery completed Molly Pate [facility] 10/10/2016 09:07:15 10/07/19 10 Hysterectomy completed Molly Pate [facility] 10/10/2016 09:07:15 10/07/19 10 Bladder sling completed Molly Pate [facility] 10/10/2016 09:07:15 10/07/18 95 Hand Surgery completed Molly Pate [facility] 10/10/2016 09:07:15 10/07/18 93 Eye Surgery completed Mollyisidro Pate [facility] 10/10/2016 09:07:15 10/07/18 89 Gallbladder Surgery completed Mollyisidro Pate [facility] 10/10/2016 09:07:15 Imaging Results None recorded. Procedure Notes None recorded. Medical Equipment None Reported. Allergies Allergen ID Allergen Name Allergen Category Reaction Reaction Severity Criticality Documentation Date Start Date Code Code System Note Provider Name and Address Organization Details Recorded Time 14466 Product containin g penicilli n (product) medicatio n Not available Not available Not available 08/08/20162010 13723 8001 SNOMED Comme nt: Repor vivi Year: 2010; Not Available [facility] 6 07:37:24 17079 penicilla mine medicatio n Not available Not available Not available 08/08/20162011 7975 RxNorm Sever ity: Unkno wn; [facility] 7 09:12:02 45654 sulfabenz amide Not available Not available Not available Not available 08/08/20162011 81915 RxNorm Sever ity: Unkno wn; [facility] 7 09:12:08 67354 Substance with sulfonami de structure and antibacte rial mechanism of action (substanc e) medicatio n Not available Not available Not available 08/08/20162010 04973 8003 SNOMED Comme nt: Repor vivi Year: 2010; Not Available [facility] 6 07:37:24 26059 latex environme nt,medica tion itching moderate Not available 10/10/2016 83649 91 RxNorm [facility] 7 09:07:13 Medications Name Sig Start Date Stop Date Status Note LastModified by Organization Details LastModified Time Prescriptio n - Prior Authorizati on Request active Not Available Not Available N ot Available diclofenac 75 mg-misopros jelani 200 mcg tablet,imme diate,delay ed release Take 1 tablet twice a day by oral route as directed for 30 days. 2017 active Not Available Not Available Not Avai lable neomycin-po lymyxin-hyd rocort 3.5 mg/mL-10,00 0 unit/mL-1 % ear solution active Not Available Not Available Not Available clindamycin HCl 300 mg capsule Take 1 capsule 3 times a day by oral route as directed for 3 days. 11/05 completed Not Available Not Available Not Available azithromyci n 250 mg tablet active Not Available Not Available Not Available sumatriptan 100 mg tablet Take 1 tablet by oral route as needed. 2017 active Not Available Not Available Not Avai lable methadone 10 mg tablet Take 2 tablets 3 times a day by oral route for 30 days. 2017 active Not Available Not Available Not Avai lable prednisone 20 mg tablet 10/10 completed Not Available Not Available Not Available clindamycin HCl 150 mg capsule active Not Available Not Available Not Available venlafaxine ER 150 mg capsule,ext ended release 24 hr Take 1 capsule every day by oral route as directed for 30 days. 2017 active Not Available Not Available Not Avai lable ciprofloxac in 500 mg tablet 10/10 completed Not Available Not Available Not Available hydrocodone 10 mg-acetamin ophen 325 mg tablet Take 1 tablet every day by oral route as needed for 30 days. 2017 active Not Available Not Available Not Avai lable butalbital- acetaminoph en-caffeine 50 mg-325 mg-40 mg tablet Take 1 tablet every 12 hours by oral route as directed for 30 days. 2017 active Not Available Not Available Not Avai lable hydromorpho ne 2 mg tablet Take 1-2 po q 4 hrs prn 11/12 completed Not Available Not Available Not Available Lidoderm 5 % topical patch APPLY 1 PATCH BY TRANSDERM AL ROUTE ONCE DAILY (MAY WEAR UP TO 12HOURS.) 2017 active Not Available Not Available Not Avai lable Requip 0.5 mg tablet Take 1 tablet every day by oral route in the evening for 30 days. 2017 active Not Available Not Available Not Avai lable promethazin e 25 mg tablet active Not Available Not Available Not Available fluticasone propionate 50 mcg/actuati on nasal spray,suspe nsion active Not Available Not Available Not Available doxycycline hyclate 100 mg tablet 10/10 completed Not Available Not Available Not Available oxycodone 5 mg tablet Take 1 tablet 3 times a day by oral route as needed for 30 days. 11/12 completed Not Available Not Available Not Available Skelaxin 800 mg tablet Take 1 tablet every 8 hours by oral route as directed for 30 days. 2017 active Not Available Not Available Not Avai lable Lyrica 75 mg capsule Take 1 capsule twice a day by oral route as directed for 30 days. 2017 active Not Available Not Available Not Avai lable Ambien CR 12.5 mg tablet,exte nded release Take 1 tablet every day by oral route at bedtime for 30 days. 2017 active Not Available Not Available Not Avai lable diclofenac 1 % topical gel active Not Available Not Available Not Available venlafaxine ER 150 mg tablet,exte nded release 24 hr take 1 daily 02/12 completed Not Available Not Available Not Available Vitals Date Recorded Body height Provider Name an d Address Organization Details Last Updated DateTime 05/28/2017 160.02 cm Sravani Hahn [facility] 05/28/2017 08:33:17 Date Recorded Body height Provider Name an d Address Organization Details Last Updated DateTime 08/06/2017 160.02 cm Jennifer Quintana MD [address], [address], [facility] 08/06/2017 11:30:12 Date Recorded Body height Provider Name an d Address Organization Details Last Updated DateTime 01/27/2018 160.02 cm Pam Kilgore [facility] 01/27/2018 11:02:27 Date Recorded Body height Provider Name an d Address Organization Details Last Updated DateTime 04/28/2018 160.02 cm Pam Kilgore [facility] 04/28/2018 10:51:44 Social History Question Answer Notes LastModified by Organizat ion Details LastModified Time Tobacco Smoking Status Never Smoker Not Available [facility] 08/09/2020 04:06:17 What Is Your Level Of Alcohol Consumption? None [id number] Information not available 08/09/2020 What Is Your Level Of Caffeine Consumption? None [id number] Information not available 08/09/2020 How Much Tobacco Do You Chew? None [id number] Information not available 08/09/2020 Are You Currently Employed? No [id number] Information not available 08/09/2020 Education 2 Year College Informatio n not available 10/10/2016 Which Of Your Hands Is Dominant? Right [id number] Information not available 08/09/2020 Marital Status xuan Informatio n not available 01/27/2018 What Was The Date Of Your Most Recent Tobacco Screening? 04/28/2018 [id number] Information not available 08/09/2020 Sex: Unknown Functional Status None recorded. Mental Status None recorded. Family History Relationship Description Onset Age of this Age Resolved Age Notes LastModified by Organization Details LastModified Time Mother Arthritis [email or web address] Not available 10/10/2016 08:43:10 Mother Back problem [email or web address] Not availab le 10/10/2016 08:43:10 Mother Diabetes mellitus [email or web address] Not available 2016 08:43:10 Mother Disorder of lung [email or web address] Not available 2016 08:43:10 Mother Family history of malignant neoplasm [email or web address] Not available 2016 08:43:10 Mother Hypertensive disorder [email or web address] Not available 2016 08:43:10 Mother Osteoporosis [email or web address] Not availab le 10/10/2016 08:43:10 Father Anemia [email or web address] Not available 01/2017 08:44:12 Father Arthritis [email or web address] Not available 10/10/2016 08:44:12 Father Disorder of lung [email or web address] Not available 2016 08:44:12 Father Family history of malignant neoplasm [email or web address] Not available 2016 08:44:12 Medical History Condition Response Arthritis Y High Cholesterol Y Heart Problems Y Acid Reflux Y Migraines Y Anemia Y Fast Pulse (tachycardia)/Heart murmurs/i rregular pulse Y Chronic Pain Y Sleep Apnea Y Gynecological HistoryNo gynecological history recorded. Obstetrics History GPAL:G 0 P 0 0 0 0 Past Encounters Encounter ID Performer Location Encounter Start Date Encounter Closed Date Diagnosis/Indication Diagnosis SNOMED-CT Code Diagnosis ICD10 Code Diagnosis Note [id number] MATTY [place] MAIN OFFICE [address] [place] [address] 10/10/2016 08:30:52 10/10/2016 09:40:07 Full thickness rotator cuff tear 127312407 M75.122 IMAGING: MRI left shoulder shows a small full-thick ness rotator cuff tear of the supraspina tus. IMPRESSION : Left shoulder rotator cuff tear PLAN: I reviewed MRI we talked about operative and nonoperati ve treatments . A recommend she proceed with an arthroscop ic rotator cuff repair. I have had a long discussion with the patient regarding treatment options, both conservati ve and surgical. At this point they have failed conservati ve management and would like to proceed with surgical treatment. Risks, benefits, and alternativ es to surgery including but not limited to the risks of anesthesia , post-opera tive infection, DVT, PE, damage to nerves, blood vessels, or tendons, continued pain, stiffness, adhesions, RSD, hardware failure, nonunion, failure to heal the repair, the need for additional procedures , and any unforeseen complicati ons. The patient understand s and accepts the risks and would like to proceed. Informed consent was obtained. [id number] Jennifer Quintana MD MAIN OFFICE [address] [facility] [address] [place] [address] 10/15/2016 08:11:52 10/15/2016 09:25:39 Full thickness rotator cuff tear [id number] M75.122 Impingemen t syndrome of shoulder region 377331042 M75.42 Lumbosacra l radiculopathy [id number] M54.16 Primary ce ntral sleep apnea [id number] 101 G47.31 [id number] MATTY Tipton MAIN OFFICE [address] [place] [address] 10/24/2016 08:08:01 10/24/2016 08:57:00 History of arthroscopic procedure on shoulder [id number] Z98.890 IMPRESSION : 2 Weeks s/p left shoulder rotator cuff repair. PLAN: I reviewed the arthroscop ic images with the patient and detailed the post-opera tive course. I am going to keep them in the sling for a total of 6 weeks. We will begin physical therapy now to work on passive ROM only. I have instructed them to come out of the sling and work on active elbow and wrist ROM daily. All questions were entertaine d today. I will check them back in 4 weeks History of major orthopedic surgery [id number] Z98.890 [id number] Ino Carias MD MAIN OFFICE [address] [place] [address] 11/28/2016 08:08:37 11/28/2016 08:31:35 History of arthroscopic procedure on shoulder 045656532 Z98.890 she is 6 weeks out now doing well she can discontinu e her sling. No active range of motion yet. Continue protocol. Follow-up 6 weeks. [id number] MATTY Tipton MAIN OFFICE [address] [place] [address] 01/09/2017 09:18:11 01/09/2017 10:26:53 History of arthroscopic procedure on shoulder [id number] Z98.890 she is 12 weeks out now and she is doing very well. Recommend that she graduated from physical therapy to a home exercise program. Recommende d that she continue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
--- OUTSIDE RECORDS SUMMARY | 2024-11-27 09:45 | XMS_ITS | Clinical Summary ---
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 Name Role Phone Unavailable Primary Care Provider Unavailabl e Social History Tobacco Use Types Packs/Day Years Used Date Smoking Tobacco: Never Assessed Comments Unknown Sex and Gender Information Value Date Recorded Sex Assigned at Not on file Legal Sex Female 9:57 AM EDT Gender Identity Not on file Sexual Orientation Not on file Plan of Treatment Health Maintenance Due Date Last Done Comments Breast Cancer Screening 1955 Colorectal Cancer Screening: Annual FOBT 2006 Colorectal Cancer Screening: Colonoscopy 2006 Colorectal Cancer Screening: Sigmoidoscopy 2006 Pneumococcal Vaccine: 65+ Ye ars (1 of 1 - PCV) 2022 Influenza Vaccine (#1) 2024 Hepatitis B Vaccine Aged Out No longe r eligible based on patient's age to complete this topic Insurance [id number] MEDICARE
--- OUTSIDE RECORDS SUMMARY | 2024-11-27 09:45 | XMS_ITS | Clinical Summary ---
Author Organization [address] [facility] Address [address] [place] [address] Phone Care Team Providers Care Host/Hostess Ground Name Role Phone Physician, Pcp Unknown Primary Care Provider Monica vailable Social History Tobacco Use Types Packs/Day Years Used Date Smoking Tobacco: Never Assessed Comments Unknown Sex and Gender Information Value Date Recorded Sex Assigned at Not on file Legal Sex Female 9:49 AM EST Gender Identity Not on file Sexual Orientation Not on file Plan of Treatment Upcoming Encounters Date Type Department Care Team ([facility] Contact Info) Description 12/08/2024 2:30 PM EST Consult Orthopedic Surgery - [place] [address] [address] Marixa Emery MD [address] [address] Health Maintenance Due Date Last Done Comments Breast Cancer Screening 1955 DTaP,Tdap,and Td Vaccines (1 - Tdap) 1976 Pneumococcal Vaccine: 50+ Ye ars (1 of 1 - PCV) 2007 Zoster Vaccines (1 of 2) 2007 COVID-19 Vaccine ( - 2023-2 5 season) 2024 Influenza Vaccine (#1) 2024 Colorectal Cancer Screening: Colonoscopy 09/24/2024 Depression Screening 09/24/2024 Falls Risk Assessment 09/24/2024 Hepatitis C Screening 09/24/2024 Medicare Annual Wellness Visit 09/24/2024 Osteoporosis Screening (Bone Density Screening) 09/24/2024 Social Influencers of Health Screening 09/24/2024 RSV Immunization Patients 60 + Years Old (1 - 1-dose 75+ series) 2032 HIB Vaccines Aged Out No longer eligi ble based on patient's age to complete this topic HPV Vaccines Aged Out No longer eligi ble based on patient's age to complete this topic Hepatitis A Vaccines Aged Out No long er eligible based on patient's age to complete this topic Hepatitis B Vaccines Aged Out No long er eligible based on patient's age to complete this topic IPV Vaccines Aged Out No longer eligi ble based on patient's age to complete this topic MMR Vaccines Aged Out No longer eligi ble based on patient's age to complete this topic Meningococcal ACWY Vaccine Aged Out N o longer eligible based on patient's age to complete this topic Meningococcal B Vacine Aged Out No lo nger eligible based on patient's age to complete this topic RSV Immunization Patients Un janina 20 months Aged Out No longer eligible b ased on patient's age to complete this topic Varicella Vaccines Aged Out No longer eligible based on patient's age to complete this topic Insurance MEDICARE Care Teams Host/Hostess Ground Relationship Specialty Start Date End Date Physician, Pcp Unknown PCP - General 09/24/24
--- OUTSIDE RECORDS SUMMARY | 2024-11-27 09:45 | XMS_ITS | Data Portability ---
Author Organization [place] [facility], [facility] Address [address] [place] [address] Care Team Providers Care Operation Specialist Name Role Phone [facility] Primary Care Provider Assessment No assessment recorded. Plan of Treatment Reminders Order Date Submit Date Provider Last Modified By Organization Details Last Modified Time Details Appointments None recorded. Lab urinalysis , dipstick 2017 018 [facility], [address], [address], [place], [address], 8 16:24:52 Referral None recorded. Procedures facet joint injection, cervical (PROC) - [id number] 2018 019 [email or web address] Not available 9 09:52:02 Surgeries None recorded. Imaging None recorded. Medication Orders None recorded. Patient TargetsNo targets recorded. Patient Instructions Encounter Date Encounter Id Patient Instructions Last Modified By Organization Details Last Modified Time 07/02/2018 [id number] Continue current medications. Routine drug screens. Follow-up 3 months. Based on the most recent SOAP score, a validated risk assessment tool for opiate prescribing, the patient is at low risk of opiate misuse. Therefore, it is clinically necessary to check for the presence or absence of the following agents in today's drug test: Amphetamines, benzodiazepines, buprenorphine, carisoprodol, cocaine, ethyl glucuronide, fentanyl, marijuana, meperidine, methadone, opiates, tapentadol, and tramadol. A supervising or alternate supervising physician agrees with this care plan and has electronically signed this document. Not available 07/02/2018 13:46:50 11/17/2018 [id number] Discussed the option of repeating C4-5 and C5-6 cervical facet injections. She is in agreement. She has an appointment next week for Botox injections with Dr. Quintana for her migraines. We will plan on seeing her back in about 2-3 months. Routine drug screens. A supervising or alternate supervising physician agrees with this care plan and has electronically signed this document. Not available 11/18/2018 07:32:01 Reason for Referral None Reported. Results Created Date Observation Date Name Description Value Unit Range Abnormal Flag Note LastModifiedBy Organization Detail LastModifiedTime 07/02/20 18 07/02/2018 ashu vidalesoi ds, QL, scree n, urine THC ur ql scn <5 NG/mL >=5 NONE DETEC VIVI Not Available [facility] [address] [place] [address], [address], 07/09/2018 14:08:31 07/02/20 18 07/02/2018 katerin turat es, QL, scree n, urine barbiturates ur ql cfm >=200 NG/mL >=200 POSIT TIMOTEO Not Available [employer] [address] [place] [address], [place], [address], 07/09/2018 14:08:31 07/02/20 18 07/05/2018 katerin turat es, QL, scree n, urine butalbital ur cfm-mcnc 1380 NG/mL >=200 POSIT TIMOTEO Not Available [employer] [address] [place] [address], [place], [address], 07/09/2018 14:08:31 07/02/20 18 07/02/2018 drug scree n, urine sedative hypnotics ur ql cfm <4 NG/mL >=4 NONE DETEC VIVI Not Available [employer] [address] [place] [address], [address], 07/09/2018 14:08:30 07/02/20 18 07/02/2018 metax alone , QN, urine metaxalone ur ql cfm <50 NG/mL >=50 NONE DETEC VIVI Not Available [employer] [address] [place] [address], [address], 07/09/2018 14:08:30 07/02/20 18 07/02/2018 drug scree n, urine buprenorphin e ur ql cfm <1 NG/mL >=1 NONE DETEC VIVI Not Available [employer] [address] [place] [address], [place], [address], 07/09/2018 14:08:29 07/02/20 18 07/02/2018 drug scree n, urine alcohol metabolites ur ql cfm <200 NG/mL >=200 NONE DETEC VIVI Not Available [employer] [address] [place] [address], [place], [address], 07/09/2018 14:08:29 07/02/20 18 07/02/2018 drug scree n, urine amphetamines ur ql cfm <0 NG/mL >=0 NONE DETEC VIVI Not Available [employer] [address] [place] [address], [place], [address], 07/09/2018 14:08:29 07/02/20 18 07/02/2018 drug scree n, urine tapentadol ur ql cfm <100 NG/mL >=100 NONE DETEC VIVI Not Available [employer] [address] [place] [address], [place], [address], 07/09/2018 14:08:29 07/02/20 18 07/02/2018 drug scree n, urine benzodiaz ur ql cfm <50 NG/mL >=50 NONE DETEC VIVI Not Available [employer] [address] [place] [address], [place], [address], 07/09/2018 14:08:29 07/02/20 18 07/02/2018 drug scree n, urine gabapentinpr egabalin ur ql cfm >=5 mcg/m L >=5 POSIT TIMOTEO Not Available [employer] [address] [place] [address], [address], 07/09/2018 14:08:29 07/02/20 18 07/02/2018 drug scree n, urine bze ur ql cfm <50 NG/mL >=50 NONE DETEC VIVI Not Available [employer] [address] [place] [address], [place], [address], 07/09/2018 14:08:29 07/02/20 18 07/02/2018 drug scree n, urine opiates ur ql cfm <100 NG/mL >=100 NONE DETEC IVVI Not Available [employer] [address] [place] [address], [place], [address], 07/09/2018 14:08:29 07/02/20 18 07/02/2018 drug scree n, urine 6mam ur ql cfm <10 NG/mL >=10 NONE DETEC VIVI Not Available [facility] [address] [place] [address], [place], [address], 07/09/2018 14:08:07/02/20 18 07/02/2018 drug scree n, urine methadone ur ql cfm >=200 NG/mL >=200 POSIT TIMOTEO Not Available [facility] [address] [place] [address], [place], [address], 07/09/2018 14:08:29 07/02/20 18 07/02/2018 drug scree n, urine meperidine ur ql cfm <100 NG/mL >=100 NONE DETEC VIVI Not Available [facility] [address] [place] [address], [place], [address], 07/09/2018 14:08:07/02/20 18 07/02/2018 drug scree n, urine fentanyl+nor fentanyl ur ql cfm <5 NG/mL >=5 NONE DETEC VIVI Not Available [facility] [address] [place] [address], [place], [address], 07/09/2018 14:08:07/02/20 18 07/02/2018 drug scree n, urine carisoprodol +meprob ur ql scn <200 NG/mL >=200 NONE DETEC VIVI Not Available [facility] [address] [place] [address], [place], [address], 07/09/2018 14:08:29 07/02/20 18 07/02/2018 drug scree n, urine tramadol ur ql cfm <100 NG/mL >=100 NONE DETEC VIVI Not Available [facility] [address] [place] [address], [place], [address], 07/09/2018 14:08:29 07/02/20 18 07/02/2018 drug scree n, urine cotinine ur ql cfm <125 NG/mL >=125 NONE DETEC VIVI Not Available [employer] [address] [place] [address], [place], [address], 07/09/2018 14:08:29 07/02/20 18 07/02/2018 drug scree n, urine pH ur 5.4 >= normal NOEMI L Not Available [facility] [address] [place] [address], [place], [address], 07/09/2018 14:08:29 07/02/20 18 07/02/2018 drug scree n, urine creat ur-mcnc 132 mg/dL >=2 normal NOEMI L Not Available [facility] [address] [place] [address], [place], [address], 07/09/2018 14:08:29 07/02/20 18 07/03/2018 drug scree n, urine pregabalin ur cfm-mcnc 106 mcg/m L >=5 POSIT TIMOTEO Not Available [facility] [address] [place] [address], [place], [address], 07/09/2018 14:08:29 07/02/20 18 07/03/2018 drug scree n, urine methadone ur cfm-mcnc 5750 NG/mL >=200 POSIT TIMOTEO Not Available [facility] [address] [place] [address], [place], [address], 07/09/2018 14:08:29 07/02/20 18 07/03/2018 drug scree n, urine EDDP ur cfm-mcnc 34902 NG/mL >=200 POSIT TIMOTEO Not Available [employer] [address] [place] [address], [place], [address], 07/09/2018 14:08:29 07/02/20 18 07/04/2018 drug scree n, urine ethyl glucuronide ur cfm-mcnc <500 NG/mL >=500 NONE DETEC VIVI Not Available [facility] [address] [place] [address], [place], [address], 07/09/2018 14:08:29 07/02/20 18 07/04/2018 drug scree n, urine ethyl sulfate ur cfm-mcnc <200 NG/mL >=200 NONE DETEC VIVI Not Available [facility] [address] [place] [address], [place], [address], 07/09/2018 14:08:29 07/02/20 18 07/02/2018 antid epres sants , quali tativ e, urine sn reuptake inhibitors ur ql >=5 NG/mL >=5 POSIT TIMOTEO Not Available [facility] [address] [place] [address], [place], [address], 07/09/2018 14:08:29 07/02/20 18 07/04/2018 antid epres sants , quali tativ e, urine odv ur cfm-mcnc 51840 NG/mL >=5 POSIT TIMOTEO Not Available [facility] [address] [place] [address], [place], [address], 07/09/2018 14:08:29 07/02/20 18 07/07/2018 antid epres sants , quali tativ e, urine venlafaxine ur cfm-mcnc 98589 NG/mL >=5 POSIT TIMOTEO Not Available [facility] [address] [place] [address], [place], [address], 07/09/2018 14:08:29 07/02/20 18 07/02/2018 drug scree n, urine cathinones synthetic ur ql scn <25 NG/mL >=25 NONE DETEC VIVI Not Available [facility] [address] [place] [address], [place], [address], 07/09/2018 14:08:28 07/02/20 18 07/02/2018 drug scree n, urine cannabinoids synthetic ql scn <2 NG/mL >=2 NONE DETEC VIVI Not Available [facility] [address] [place] [address], [place], [address], 07/09/2018 14:08:28 07/02/20 18 07/02/2018 drug- drug inter actio n (ddi) drug-drug interaction #1 POSITI VE none Metha done (Meth adose )-Kyle lafax ine (Effe xor); MODER ATE; The concu rrent use of metha done with other agent s that prolo ng the QTc inter sushil may resul t in poten tiall y life- threa tenin g cardi ac arrhy thmia s, inclu ding torsa albert de point es.(1 ) Not Available [facility] [address] [place] [address], [place], [address], 07/09/2018 14:08:27 07/02/20 18 07/02/2018 drug- drug inter actio n (ddi) drug-drug interaction profile >=5 NG/mL >=5 POSIT TIMOTEO Not Available [facility] [address] [place] [address], [place], [address], 07/09/2018 14:08:27 07/02/20 18 07/04/2018 drug- drug inter actio n (ddi) O-desmethylv enlafaxine ddi NG/mL >=5 POSIT TIMOTEO Not Available [facility] [address] [place] [address], [place], [address], 07/09/2018 14:08:27 07/02/20 18 07/04/2018 drug- drug inter actio n (ddi) venlafaxine (effexor) ddi NG/mL >=5 POSIT TIMOTEO Not Available [employer] [address] [place] [address], [place], [address], 07/09/2018 14:08:27 07/02/20 18 07/02/2018 drug scree n, [place] C[place] 49118 NG/mL >=5 normal COMPL IANT: Test resul t is consi stent and expec vivi with presc ribed drug. Not Available [facility] [address] [place] [address], [place], [address], 07/09/2018 14:08:27 07/02/20 18 07/02/2018 drug scree n, urine methadone ur CMP 67041 NG/mL >=200 normal COMPL IANT: Test resul t is consi stent and expec vivi with presc ribed drug. Not Available [facility] [address] [place] [address], [place], [address], 07/09/2018 14:08:27 07/02/20 18 07/02/2018 drug scree n, urine butalbital ur CMP 1380 NG/mL >=200 normal COMPL IANT: Test resul t is consi stent and expec vivi with presc ribed drug. Not Available [facility] [address] [place] [address], [address], 07/09/2018 14:08:27 07/02/20 18 07/02/2018 drug scree n, urine pregabalin ur CMP 106 mcg/m L >=5 normal COMPL IANT: Test resul t is consi stent and expec vivi with presc ribed drug. Not Available [facility] [address] [place] [address], [place], [address], 07/09/2018 14:08:27 07/02/20 18 07/02/2018 drug scree n, urine mextaxalone ur CMP <50 NG/mL >=50 abnormal NON-C OMPLI ANT: Test resul t indic ates patie nt may not be takin g drug presc ribed . Not Available [facility] [address] [place] [address], [place], [address], 07/09/2018 14:08:27 07/02/20 18 07/02/2018 drug scree n, urine hydrocodone ur CMP <100 NG/mL >=100 normal PRN - NOT PRESE NT: Test resul t is consi stent and expec vivi with presc ribed drug. Not Available [facility] [address] [place] [address], [place], [address], 07/09/2018 14:08:27 07/02/20 18 07/02/2018 drug scree n, urine zolpidem ur CMP <4 NG/mL >=4 normal PRN - NOT PRESE NT: Test resul t is consi stent and expec vivi with presc ribed drug. Not Available [facility] [address] [facility], [place], [address], 07/09/2018 14:08:27 Result Notes None recorded. Problems Name Problem SNOMED Code Status Onset Date Resolution Date Notes Provider Name and Address Organization Details Recorded Time Long-term drug therapy Active 018 MATTY BECKMAN [address] [place] [address] [address], [place], [address] , [place] [facility] 8 13:45:43 Migraine [id number] Active 018 MATTY BECKMAN [address] [place] [address] [address], [place], [address] , [place] [facility] 8 13:45:52 Neck pain 28961063 Active 018 MATTY BECKMAN [address] [place] [address] [address], [place], [address] , [place] [facility] 8 13:46:15 Problem Notes None recorded. Procedures Surgical History Date Name Laterality Status Provider Name and Address Organization Details Recorded Time 12/01/19 19 [place] [address] [place] [address] [address], [place], [address], [place] [facility] 12/01/2018 20:04:13 11/24/19 19 EWatson 25g Cervical Facet Injection completed Jennifer Quintana MD [facility] [address] [address], [place], [address], [place] [facility] 11/24/2018 13:09:09 08/27/20 18 [place] [address] [place] [address] [address], [place], [address], [place] [facility] 09/16/2018 16:50:17 06/11/20 18 EWatson 25g Cervical Facet Injection completed Jennifer Quintana MD [address] [address] [address], [place], [address], [place] [facility] 06/11/2018 10:00:33 05/27/20 18 Botox completed Jennifer Quintana MD [address] [place] [address] [address], [place], [address], [place] [facility] 05/28/2018 14:24:07 10/07/19 18 Left Foot completed Salomon Apodaca MD [address] [place] [address] [address], [place], [address], [place] [facility] 05/12/2018 15:01:34 10/07/19 17 Shoulder arthroscopy-left completed Salomon Apodaca MD [address] [place] [address] [address], [place], [address], [place] [facility] 05/12/2018 15:01:34 10/07/19 14 Left Total Knee Arthroplasty completed Salomon Apodaca MD [address] [place] [address] [address], [place], [address], [place] [facility] 05/12/2018 15:01:34 10/07/19 13 Left Hand/Wrist Surgery completed Salomon Apodaca MD [address] [place] [address] [address], [place], [address], [place] [facility] 05/12/2018 15:01:34 10/07/19 13 Right Hand/Wrist Surgery completed Salomon Apodaca MD [address] [place] [address] [address], [place], [address], [place] [facility] 05/12/2018 15:01:34 10/07/19 12 Right Knee Arthroplasty completed Salomon Apodaca MD [address] [place] [address] [address], [place], [address], [place] [facility] 05/12/2018 15:01:34 10/07/19 10 Hysterectomy completed Salomon Apodaca MD [address] [place] [address] [address], [place], [address], [place] [facility] 05/12/2018 15:01:34 10/07/18 92 Other completed Salomon Apodaca MD [address] [place] [address] [address], [place], [address], [place] [facility] 05/12/2018 15:01:34 10/07/18 81 Gallbladder Surgery completed Salomon Apodaca MD [address] [place] [address] [address], [place], [address], [place] [facility] 05/12/2018 15:01:34 Imaging Results None recorded. Procedure Notes None recorded. Medical Equipment None Reported. Allergies Allergen ID Allergen Name Allergen Category Reaction Reaction Severity Criticality Documentation Date Start Date Code Code System Note Provider Name and Address Organization Details Recorded Time 84336 fentanyl medicatio n diarrhea moderate Not available 05/12/2018 4337 RxNorm Not Available Not Available Not Available 26564 latex environme nt,medica tion itching moderate Not available 05/12/2018 21498 91 RxNorm Not Available Not Available Not Available 32011 Substance with sulfonami de structure and antibacte rial mechanism of action (substanc e) medicatio n eye redness moderate Not available 05/12/2018 96655 8003 SNOMED Not Available Not Available Not Available 93231 Product containin g penicilli n (product) medicatio n rash moderate Not available 05/12/2018 11436 8001 SNOMED Not Available Not Available Not Available Medications Name Sig Start Date Stop Date Status Note LastModified by Organization Details LastModified Time Prescriptio n - Prior Authorizati on Request 11/13 completed Not Available Not Available Not Available diclofenac 75 mg-misopros jelani 200 mcg tablet,imme diate,delay ed release Take 1 tablet twice a day by oral route for 30 days. active Not Available Not Available No t Available neomycin-po lymyxin-hyd rocort 3.5 mg/mL-10,00 0 unit/mL-1 % ear solution 05/12 completed Not Available Not Available Not Available triamcinolo ne acetonide 0.5 % topical cream 11/17 completed Not Available Not Available Not Available azithromyci n 250 mg tablet 11/13 completed Not Available Not Available Not Available sumatriptan 100 mg tablet Take 1 tablet by oral route as needed. 2018 active Not Available Not Available Not Avai lable methadone 10 mg tablet Take 2 tablets 3 times a day by oral route for 30 days. active Not Available Not Available No t Available clindamycin HCl 150 mg capsule 05/12 completed Not Available Not Available Not Available venlafaxine ER 150 mg capsule,ext ended release 24 hr Take 1 capsule every day by oral route for 30 days. active Not Available Not Available No t Available acyclovir 400 mg tablet 11/17 completed Not Available Not Available Not Available hydrocodone 10 mg-acetamin ophen 325 mg tablet 12/19 completed Not Available Not Available Not Available tramadol 50 mg tablet Take 2 tablets every 6 hours by oral route for 30 days. 2018 active Not Available Not Available Not Nona kim butalbital- acetaminoph en-caffeine 50 mg-325 mg-40 mg tablet active Not Available Not Available Not Available lorazepam 0.5 mg tablet active Not Available Not Available Not Available ropinirole 0.5 mg tablet Take 1 tablet(s) every day by oral route in the evening for 30 days. active Not Available Not Available No t Available lidocaine 5 % topical patch Apply 1 patch every day by transderm al route for 30 days. 2018 active Not Available Not Available Not Nona kim promethazin e 25 mg tablet 05/12 completed Not Available Not Available Not Available prednisone 5 mg tablets in a dose pack 11/13 completed Not Available Not Available Not Available fluticasone propionate 50 mcg/actuati on nasal spray,suspe nsion active Not Available Not Available Not Available metaxalone 800 mg tablet Take 1 tablet every 8 hours by oral route for 30 days. 2018 active Not Available Not Available Not Nona [facility] Lyrica 75 mg capsule Take 1 capsule twice a day by oral route for 30 days. active Not Available Not Available No t Available zolpidem ER 12.5 mg tablet,exte nded release,mul tiphase Take 1 tablet every day by oral route for 30 days. active Not Available Not Available No t Available Voltaren 1 % topical gel APPLY 2 GRAM TO THE AFFECTED AREA(S) BY TOPICAL ROUTE 4 TIMES PER DAY 2018 active Not Available Not Available Not [facility] Shingrix (PF) 50 mcg/0.5 mL intramuscul ar suspension, kit active Not Available Not Available Not Available Fluzone Quad (PF) 60 mcg(15 mcgx4)/0.5 mL intramuscul ar syringe active Not Available Not Available N ot Available Vitals Date Recorded Body height Provider Name an d Address Organization Details Last Updated DateTime 07/02/2018 160.02 cm aPm Kilgore [place] [facility] 8 09:56:40 Date Recorded Body height Provider Name an d Address Organization Details Last Updated DateTime 08/27/2018 160.02 cm Pam [place] [facility] 8 11:13:31 Date Recorded Body height Provider Name an d Address Organization Details Last Updated DateTime 11/17/2018 160.02 cm Summer Matos [place] [facility] 9 13:04:40 Date Recorded Body height Heart rate Systolic blood pressure Diastolic blood pressure Provider Name and Address Organization Details Last Updated DateTime 11/24/2018 160.02 cm 78 /min 125 mm[Hg] 76 mm[Hg] Patricia Chand [place] [facility] 11/24/2018 12:57:48 Social History Question Answer Notes LastModified by Organizat ion Details LastModified Time Tobacco Smoking Status Never Smoker Salomon Apodaca MD [address] [address] [address], [place], [address], [facility] 05/12/2018 15:01:33 What Is Your Level Of Alcohol Consumption? None Information not available 05/12/2018 Is Blood Transfusion Acceptable In An Emergency? Yes Information not available 05/12/2018 How Much Tobacco Do You Chew? None Information not available 05/12/2018 Which Illicit Or Recreational Drugs Have You Used? None Information not available 05/12/2018 What Is Your Occupation? Disabled Retired Information not available 05/12/2018 Live Alone Or With Others? With Others Information not available 05/12/2018 Have You Been Diagnosed With Menopause? No Information not available 05/12/2018 Have You Been Diagnosed With Vitamin D Or Calcium Deficiency? Yes Information not available 05/12/2018 Have You Had A Bone Density Test (DEXA) Performed In The Past 2 Years? If Yes: Where? When? No Information not available 05/12/2018 Have You Used Antacids Continuously For More Than 6 Months? Yes Information not available 05/12/2018 Have You Used Steroids Daily For More Than 3 Months? No Information not available 05/12/2018 What Was The Date Of Your Most Recent Tobacco Screening? 11/17/2018 Information not available 04/29/2019 Sex: Unknown Functional Status Question Answer Note LastModified by Organization D etails LastModified Time What is your exercise level? None Information not available 05/12/2018 Mental Status None recorded. Family History Relationship Description Onset Age of this Age Resolved Age Notes LastModified by Organization Details LastModified Time Mother Diabetes mellitus [email or web address] Not available 2017 14:49:49 Mother Disorder of lung [email or web address] Not available 2017 14:49:49 Mother Hypertensive disorder [email or web address] Not available 2017 14:49:49 Mother Osteoporosis [email or web address] Not availab le 05/12/2018 14:49:49 Father Blood coagulation disorder [email or web address] Not available 2017 14:50:12 Medical History Condition Response Coronary Artery Disease N Gout N Anxiety/Depression N Other N Enlarged Prostate N MRSA N Blood Transfusion N Emphysema N Hernia N COPD N Difibrillator N Pacemaker N Vascular Disease N Congestive Heart Failure N Problems with Anesthesia Y Arthritis Y Blood Clot N Cancer N Stroke N Alzheimer's/Dementia N High Cholesterol N Liver Disease N Rheumatoid Arthritis N Fibromyalgia Y Kidney Disease N Heart Problems Y Osteoarthritis Y Scoliosis N Lyme Disease N Thyroid Problems N Anemia N Multiple Sclerosis N Heart Attack ([place]) N Ulcers N Stomach Ulcers N Diabetes N Bleeding Disorder N Seizures/Epilepsy N Tuberculosis N AIDS/HIV N Asthma N Peripheral Vascular Disease N Hepatitis N Pulmonary Embolism N Hypertension N Osteoporosis N Gynecological HistoryNo gynecological history recorded. Obstetrics History GPAL:G 0 P 0 0 0 0 Past Encounters Encounter ID Performer Location Encounter Start Date Encounter Closed Date Diagnosis/Indication Diagnosis SNOMED-CT Code Diagnosis ICD10 Code Diagnosis Note [id number] Salomon Apodaca MD [facility] [address] [address] 05/12/2018 14:28:23 05/15/2018 14:40:31 Neck pain 67534194 M54.2 We discussed the nature of the patient's neck pain, current treatment options, and expected outcomes in detail. I have explained to the patient that most people will have improvemen t of their symptoms with non-operat timoteo interventi ons. Therefore I recommend: *Activity modificati on *Cold/Heat therapy as needed *Home exercise program : Low impact aerobic exercises such as stationary bicycling, walking, stair master etc. After acute pain resolves, start isometric exercises and progress to active ROM and resistive exercises as tolerated with focus on scapular stabilizat ion muscles, shoulder girdle and neck muscles. We will start PT if she has no significan t central stenosis since PT protocol can vary based on the severity of her central stenosis. *NSAIDs over the counter PRN pain. She has increasing headaches, migraines and hyperrefle colin in her arms with positive Jay bilaterall y. I would like to get an {{MRI* CT myelogram} } of {{cervical * thoracic lumbar}} spine to better evaluate this region and also to evaluate the severity of the stenosis. Patient will come back to see me in my office after this study is performed. We will go over the findings and discuss treatment options more in detail during the next visit. Cervical spondylosis [id number] M47.812 Degenerati on of cervical intervertebral disc [id number] M50.30 [id number] Jennifer Quintana MD [facility] [address] [place] [address] 05/27/2018 14:25:39 05/27/2018 16:05:07 Refractory migraine without aura [id number] G43.719 [id number] Salomon Apoadca MD [facility] [address] [place] [address] 06/02/2018 08:59:35 06/02/2018 13:19:37 Neck pain [id number] M54.2 X-ray findings/i nterpretat ion: {{Mild* Mo derate Adv anced}} spondylosi s is noted. Disc heights are diminished at {{multiple levels C5- C6 C6-C7 C 5-6 and C6-7* C4-C 7 C3-C7}}. There is no dynamic instabilit y with flexion and extension. Cervical lordosis is {{maintain ed decreas ed lost and kyphosis is noted*}}. There are no osteolytic or blastic lesions or acute fractures. MRI of the Cervical spine: C4-5, C5-6 and C6-7 degenerati ve discs with loss of cervical lordosis and mild kyphhosis, no significan t central or foraminal stenosis We discussed the nature of the patient's neck pain, current treatment options, and expected outcomes in detail. I have explained to the patient that most people will have improvemen t of their symptoms with non-operat timoteo interventi ons. Therefore I recommend: *Activity modificati on *Cold/Heat therapy as needed *Traction with neck in slight flexion but to discontinu e if it makes the symptoms worse or no relief after the first few applicatio ns *Home exercise program and Physical rehabilita tion: Low impact aerobic exercises such as stationary bicycling, walking, stair master etc. After acute pain resolves, start isometric exercises and progress to active ROM and resistive exercises as tolerated with focus on scapular stabilizat ion muscles, shoulder girdle and neck muscles.I also told her that it is OK to try chiropract ic treatments if she chooses to do so. *NSAIDs over the counter PRN pain. *Discussed cervical injections . I think she would benefit from cervical facet injections to help improve her neck pain. She will be referred to DR. Quintana After careful review of all images including X-rays, MRI etc, I have explained to the patient that I really don't think she would benefit from any surgical interventi on at this time. Therefore I have asked the patient to continue with conservati ve treatment modalities as discussed and described above. Cervical spondylosis [id number] M47.812 Degenerati on of cervical intervertebral disc [id number] M50.30 [id number] Jennifer Quintana MD [facility] [address] [place] [address] 06/11/2018 09:08:20 06/12/2018 12:20:07 Cervical spondylosis without myelopathy [id number] M47.812 [id number] Jennifer Quintana MD [facility] [address] [place] [address] 07/02/2018 09:47:24 07/02/2018 11:51:45 Long-term drug therapy [id number] Z79.899 Migraine [id number] G43.90 9 Neck pain [id number] M54.2 [id number] Jennifer Quintana MD [facility] [address] [place] [address] 08/27/2018 11:08:46 09/01/2018 15:47:39 Refractory migraine without aura [id number] G43.719 [id number] Jennifer Quintana MD [facility] [address] [place] [address] 11/17/2018 12:56:36 11/17/2018 13:34:57 Neck pain 81004671 M54.2 Migraine [id number] G43.90 9 [id number] Jennifer Quintana MD [facility] [address] [place] [place] [address] 11/24/2018 12:49:46 11/25/2018 16:03:41 Cervical spondylosis [id number] M47.812 [id number] Jennifer Quintana MD [facility]- [address] [place] [address] 12/01/2018 12:29:59 12/01/2018 13:23:33 Refractory migraine without aura [id number] G43.719 Health Concerns Section Related Observation LastModified by Organization Detai ls LastModified Time None Recorded Concern Status LastModified by Organization Details LastModified Time None Recorded Advance Directives Directive None Recorded Payers Encounter Date Sequence Insurance Name Policy Number Policy Ramierz Covered Member ID Ramirez Member ID Guarantor Name 07/02/2018 1 MEDICARE [place]: KAREEM Hdz [id number] 2 Laura Richard Hdz 07/02/2018 2 [employer]: [employer] 104 Laura Hdz [id number] Laura Hdz 08/27/2018 1 MED[place]ARE [place]: [place]AREEM Hdz [id number] 2 Laura Richard Hdz 08/27/2018 2 [employer]: [employer] 104 Laura Hdz [id number] Laura Richard Hdz 11/17/2018 1 MEDICARE [place]: [place]EM Hdz [id number] 2 Laura E Hdz 11/17/2018 2 [employer]: [employer] 104 Lauracarolina Hdz [id number] Laura E Hdz 11/24/2018 1 MEDICARE [place]: [employer]AREEM Hdz [id number] 2 Laura E Hdz 11/24/2018 2 [employer]: [employer] 104 Lauracarolina Hdz [id number] Laura E Hdz 12/01/2018 1 MEDICARE B-[place]: GEOVANN[employer]ETEY Hdz [id number] 2 Laura E Hdz 12/01/2018 2 [employer]: [employer] 104 Laura Hdz [id number] Laura Hdz Notes Date Note Type Note Provider Name and Address Organization Details Recorded Time 8 text/html Pain Management Follow-UpReported bypatient.Current level of painMild pain: 110 to 210 Location:neck Outcome of Treatmentshort term relief UDT/SOAP:SOAP: (low) reported medicationscurrently taking medication: current medication is helping (completing PA today) Previous Injections:Facets; helped significantly Exacerbated By:movement; physical exertion Pt is here for routine 3 month follow up as well as follow up from her cervical facet injection. She reports of good symptomatic relief after the cervical facet injections, about 60 or 70%. She is stable on methadone and hydrocodone as well as Lyrica for pain control. Reports no side effects or functional issues. Jennifer Quintana MD [address] [place] [address] [address], [place], [address], [facility] 07/02/2018 16:21:18 8 text/html Pt is her for Botox for migraines. no side effect from the previous injection or facial asymmetry. Reports that her headaches are at least 50% better. Continues to have neck pain without radiation. Jennifer Quintana MD [address] [place] [address] [address], [place], [address], [facility] 09/16/2018 16:50:49 9 text/html Pain Management Follow-UpReported bypatient.Current level of painMild pain: 10/16 to 2 Location:neck Current Home Exercise Programstrengthen; stretch Outcome of Treatmentshort term relief UDT/SOAP:SOAP: (low) reported medicationscurrently taking medication: current medication is helping Previous Injections:Facets; helped significantly Exacerbated By:movement; physical exertion Follow-up ongoing pain related to fibromyalgia and facet mediated neck pain and history of mmigraine. She is stable on the current medications and has been present now. She responded very well to cervical facet injections several months ago but now has began to develop some recurrent pain in her neck. Is not report of any radicular symptoms. Migraines are controlled with medication. Reports no side effects of any the medications or functional issues. Jennifer Quintana MD [address] [place] [address] [address], [place], [address], [facility] 11/18/2018 08:49:06 9 text/html Last MRI?-05/31/2018No blood thinners past 7 days?-noNo antibiotics?-noDriver Present?-no Jennifer Quintana MD [address] [address] [address], [place], [address], [facility] 11/24/2018 13:20:49 9 text/html patient presents today for Botox injection. Her headaches diminish well for 2 months, then slowly go back to 3-4 headaches per week. Denies side effects from Botox, no dry eyes or dysphasia. Continues on pain medication. No recent fevers or infection. Jennifer Quintana MD [address] [address] [address], [place], [address], [facility] 12/01/2018 20:04:41 OBGyn Episode No OBEpisode recorded.
[2024-11-27 09:57] LABS: Basophils Absolute Auto 0.1 X10*3/uL (0.0-0.2); Basophils Percent Auto 1.5 % (0-2); Eosinophils Absolute Auto 0.3 X10*3/uL (0.0-0.4); Eosinophils Percent Auto 6.3 % (0-4); Hemoglobin 13.3 g/dl (12.0-16.0); Imm Gran Abs Auto 0.01 X10*3/uL (0.00-0.03); Imm Gran Pct Auto 0.2 % (0.0-0.4); Lymphocytes Absolute Auto 1.8 X10*3/uL (1.2-4.9); Lymphocytes Percent Auto 33.6 % (20-40); Mean Corpuscular HGB Conc 32.4 g/dl (31.0-35.0); Mean Corpuscular Volume 89.3 fL (80.0-98.0); Mean Platelet Volume 9.4 fL (9.4-12.3); Monocytes Absolute Auto 0.4 X10*3/uL (0.1-1.2); Monocytes Percent Auto 7.4 % (2-11); Neutrophils Absolute Auto 2.8 x10*3/uL (2.0-8.3); Platelet Count 353 X10*3/uL (160-400); Red Blood Count 4.59 X10*6/uL (4.20-5.50); White Blood Count 5.4 X10*3/uL (4.8-10.8)
[2024-11-27 09:57] LABS: Appearance Urine Clear; Color Urine Yellow; Glucose Urine UA Negative (Negative); Leukocyte Esterase Urine Trace (Negative); Nitrite Urine Negative (Negative); UMIC TRIGGER UACC YES; Urine Blood Negative (Negative); Urine Ketones Negative (Negative); Urine Protein Negative (Neg-Trace)
[2024-11-27 10:18] LABS: Bacteria Urine Trace (None Seen); Hyaline Casts Urine 0-2 /LPF (0-2); RBC Urine 0-2 /HPF (0-2); WBC Urine 0-5 /HPF (0-5)
[2024-11-27 10:36] LABS: Erythrocyte Sedimentation Rate 23 MM/HR (0-20)
[2024-11-27 10:53] LABS: Alanine Aminotransferase 24 U/L (0-31); Albumin Level 4.2 g/dL (3.5-5.0); Alkaline Phosphatase 113 U/L (39-117); Anion Gap 12 (12-20); Aspartate Amino Transferase 26 U/L (5-31); Bilirubin Total 0.3 mg/dL (0.0-1.0); Blood Urea Nitrogen 12 mg/dL (9-16); Calcium 9.6 mg/dL (8.4-10.2); Carbon Dioxide 28 mmol/L (22-29); Chloride 106 mmol/L (96-108); Cholesterol 176 mg/dL (<200); Estimated Glomerular Filt Rate > 60; Glucose Fasting 104 mg/dL (60-99); HDL Cholesterol 67 mg/dL (>40); LDL Cholesterol Calculated 97 mg/dL (<100); Potassium 4.1 mmol/L (3.3-5.1); Sodium 142 mmol/L (135-145); Total Protein 7.7 g/dL (6.5-8.0); Triglycerides 64 mg/dL (<150)
[2024-11-27 11:06] LABS: Folate 13.3 ng/mL (> or = 4.0); Vitamin B12 516 pg/mL (200-900)
== END 2024-11-27 09:18 | disposition home or self-care (01) ==
LOC: HO.LAB 09:17
PROVIDERS: PCP Internal Medicine; Visit Provider Internal Medicine
DX: E53.8 Deficiency of other specified B group vitamins (principal); M79.7 Fibromyalgia; E78.00 Pure hypercholesterolemia, unspecified; D64.9 Anemia, unspecified
CPT/HCPCS: 36415; 80053; 80061; 81001; 82607; 82746; 84443; 85025; 85652

== ENCOUNTER 2024-12-03 09:37 | Outpatient (AMB) | payer MEDICARE, BC, SELFPAY ==
[2024-12-03 09:41] VITALS: BP 126/82; PULSE 77; O2SAT 98; BMI 37.6
--- NOTE | 2024-12-03 09:41 | MHC.PC.OV ---
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: No Accompanied by: Self / Same As Patient Allergies Sulfa (Sulfonamide Antibiotics) [SULFA (SULFONAMIDE ANTIBIOTICS)] Allergy (Severe, Verified 12/03/24 13:21) ANAPHYLAXIS Penicillins [PENICILLINS] Allergy (Mild, Verified 12/03/24 13:21) RASH latex Adverse Reaction (Severe, Verified 12/03/24 13:21) Rash doxycycline Adverse Reaction (Mild, Verified 12/03/24 13:21) Abdominal Pain Medication List - Last Reconciled 12/03/24 by Osmany Browning MD albuterol sulfate 90 mcg/actuation (Ventolin HFA) 2 puffs inhalation Q6H PRN 30 days amoxicillin-pot clavulanate 875-125 mg 1 tab PO BID 10 days atorvastatin 10 mg PO DAILY 90 days lxgehsfiyb-kayzacn-eskumvjo 50-325-40 mg 1 cap PO Q6-8H PRN 30 days calcium carbonate (Calcium 600) 600 mg PO DAILY cholecalciferol (vitamin D3) (Vitamin D3) 25 mcg PO DAILY fluticasone propionate 50 mcg/actuation 1 spray intranasal DAILY lidocaine 5% 1 patch topical DAILY loratadine (Claritin) 10 mg PO BEDTIME lorazepam 0.5 mg PO DAILY PRN 30 days metaxalone 800 mg PO TID PRN smplrqfjapwh-ozfeucls-zxmsaw (Multivitamin 50 Plus tablet) 1 tab PO DAILY omeprazole 20 mg PO DAILY@0630 pregabalin 75 mg PO BID 30 days ropinirole 1 mg PO BEDTIME 90 days sumatriptan succinate 100 mg PO DAILY PRN 30 days tramadol 100 mg PO Q6H PRN tramadol 100 mg (2 x 50 mg) PO Q6H PRN 48 days venlafaxine ER 150 mg PO DAILY zolpidem ER 12.5 mg PO BEDTIME PRN 30 days Tobacco use date assessed: 12/03/24 Fall risk assessment: 1 Fall in past year Last assessed Fall Risk: 12/03/24 Dental Screening Dental Screen Date: 12/03/24 Did you have a dental visit in the last 12 months?: Yes Did you have a dental problem in the last 6 months where you did not have access to dental care?: No Was dental information given to patient?: Patient has dentist HPI 3 Months f/u HPI Details Patient comes in today for her follow up visit States that she has been experiencing increased left-sided nasal and sinus congestion for the past week or so Feels that her left sinus is always clogged up and even using a saline sinus/nasal rinse does not help Relates (+) on and off headaches lately that she thinks are due to her sinus congestion; she denies any fever or sore throat Denies any chest pains, no increased SOB No nausea/vomiting, no abdominal pain No change in bowel habits noted Adds that she has been experiencing recurrent sharp right inguinal pains lately that are mostly triggered when she gets up to walk States that she does not feel the pain when she is sitting down or when she is moving her bowels or urinating She does not recall any recent injury or trauma to her right inguinal area and has not done anything that she thinks could have caused or led to her current symptoms She has also noticed a small cyst on the DIP of her right thumb recently and states that the tip of her finger goes numb when she presses on the cyst She had her follow up labs done last week - to discuss her results [facility] Medical History (Updated 12/03/24 @ 10:29 by Omsany Browning MD) Degenerative joint disease of shoulder, right Osteoarthritis Arthritis Back pain Celiac sprue GERD (gastroesophageal reflux disease) Anxiety Numbness Sepsis Sleep apnea Sacroiliac dysfunction Migraine Burn injury Sinusitis chronic, frontal Osteopenia Obesity (BMI 30-39.9) Major depression, recurrent Insomnia Primary osteoarthritis Urinary frequency Mitral valve prolapse Allergic rhinitis Gastritis Pure hypercholesterolemia Restless leg syndrome Cervicalgia Lumbar degenerative disc disease Fibromyalgia Surgical History History of lumbar spinal fusion History of bilateral knee arthroplasty Hx of eye surgery History of cataract surgery History of carpal tunnel release History of bunionectomy S/P GINGER-BSO (total abdominal hysterectomy and bilateral salpingo-oophorectomy) History of repair of rotator cuff History of arthroscopy of both knees Hx of cholecystectomy Hx of endoscopy History of colonoscopy Family History Father History of cancer Mother History of cancer History of high blood pressure Hx of diabetes mellitus Social History Household Members: Significant Other Household Members Other:: DAUGHTER AND HER FAMILY Housing: House Are you a primary rn intensive care unit to a significant other at home: No Do you presently have visiting nurse or other home services: No Alcohol intake: current Alcohol intake frequency: a few times a month Patient Tobacco Use Status: Never used Tobacco Tobacco use type: Cigarette e-Cigarette/Vaping Use: Never Used Second Hand Smoke Exposure: Yes service: No Current occupational status: retired Cognitive needs: No Hearing needs: No Vision needs: Yes Questionnaire PHQ-9 Over the last 2 weeks, how often have you been bothered by any of the following problems? 1. Little interest or pleasure in doing things: several days 2. Feeling down, depressed, or hopeless: not at all 3. Trouble falling or staying asleep, or sleeping too much: several days 4. Feeling tired or having little energy: several days 5. Poor appetite or overeating: not at all 6. Feeling bad about yourself - or that you are a failure or have let yourself or your family down: not at all 7. Trouble concentrating on things, such as reading the newspaper or watching television: more than half the days 8. Moving or speaking so slowly that other people could have noticed. Or the opposite - being so fidgety or restless that you have been moving around a lot more than usual: not at all 9. Thoughts that you would be better off or of hurting yourself in some way: not at all Total score: 5 Depression Screening Interpretation: Positive Depression Screening Follow-up: Existing condition and In treatment Depression Screening Done: Yes 99543 - PHQ-9 Billing: Yes Source: Developed by Drs. Elroy Roberts, Sunni Amaro, Yadiel Maya and colleagues, with an educational og from [employer]. Thrive Questionnaire Date Thrive assessed: 12/03/24 I am a: Patient What is your living situation today?: I have a steady place to live Within the past 12 months, did the food you bought not last and you didn't have the money to get more?: Never true Within the past 12 months, did you worry whether your food would run out before you got money to buy more?: Never true Do you have trouble paying for medicines?: No Do you have trouble getting transportation to medical appointments?: No Do you have trouble paying your heating and electricity bill?: No Do you have trouble taking care of your child, family member or friend?: No Do you have trouble with day-to-day activities such as bathing, preparing meals, shopping, managing finances, etc.?: No Are you currently unemployed and looking for a job?: No Are you interested in more education?: No Please select the resources that you would like help with: None Currently or been in a relationship where the following occur: No concerns reported THRIVE Score: 0 AUDIT C Alcohol Use Questionnaire (AUDIT-C) 1. How often do you have a drink containing alcohol?: 2-3 times a week 2. How many drinks containing alcohol do you have on a typical day when you are drinking?: 1 or 2 3. How often do you have six or more drinks on one occasion?: Never Total Score: 3 Score Reviewed/Action Taken: Yes PANFILO-7 AMB Questionnaire PANFILO-7 Date PANFILO - 7 assessed: 12/03/24 Feeling nervous, anxious, or on edge: 0 = Not at all Not being able to stop or control worryin = Not at all Worrying too much about different things: 0 = Not at all Trouble relaxin = Not at all Being so restless that it is hard to sit still: 0 = Not at all Becoming easily annoyed or irritable: 0 = Not at all Feeling afraid as if something awful might happen: 0 = Not at all Total PANFILO-7 score (0-4 normal; 5-9 mild; 10-14 moderate; 15-21 severe): 0 Source: Developed by Drs. Elroy Roberts, Sunni Amaro, Yadiel Maya and colleagues, with an educational og from [employer]. Review of Systems Const Denies chills, Denies fatigue, Denies fever(s) and Reports headache(s) (on and off lately) ENT Denies dysphagia, Denies dizziness, Denies otalgia, Reports headache(s) (on and off lately), Reports nasal congestion (mostly on the left side), Reports neck pain, Denies odynophagia, Reports sinus pain (left-sided), Reports sinus pressure (left-sided) and Denies sore throat Card Denies chest pain, Denies palpitations and Denies dyspnea Resp Denies chest congestion, Denies cough and Denies dyspnea GI Denies abdominal pain, Denies constipation, Denies dysphagia, Denies heartburn, Denies diarrhea, Denies nausea, Denies odynophagia and Denies vomiting Denies difficulty voiding, Denies nocturia, Denies dysuria and Denies urinary urgency Musc Details: recurrent sharp right inguinal pain Reports back pain (chronic), Reports arthralgias (involving multiple joints; increased over right shoulder for the past 2 wks) and Reports neck pain Skin/Breast Details: (+) cyst on the DIP of the right thumb - see HPI Denies rash Neuro Denies dizziness, Reports headache(s) (on and off lately), Reports paresthesias (in both hands, on and off) and Reports tremor(s) (on and off in the left hand) Psych Reports anxiety Endo Denies fatigue and Denies palpitations Physical exam (Primary Care) Vital Signs: Last Vital Signs Pulse 77 12/03/24 09:41 BP 126/82 12/03/24 09:41 Pulse Ox 98 12/03/24 09:41 Oxygen Delivery Method Room Air 12/03/24 09:41 BMI result Body Mass Index 37.6 Tobacco/Smoking Status: Tobacco use Status Tobacco use date assessed 12/03/24 12/03/24 09:44 Patient Tobacco Use Status Never used Tobacco 12/03/24 09:44 Tobacco use type Cigarette 12/03/24 09:44 e-Cigarette/Vaping Use Never Used 12/03/24 09:44 PHQ-9: PHQ-9 Score PHQ-9: Total score 5 12/03/24 10:47 Depression Screening Interpretation: Positive Depression Screening Follow-up: Existing condition and In treatment Thrive Assessment: Date of Thrive Assessment Date Thrive assessed 12/03/24 12/03/24 09:44 Currently or been in a relationship where the following occur: No concerns reported Const General: no acute distress and alert HENMT Ears: TM's normal bilaterally and EAC's normal Face and sinus: Yes sinus tenderness (mild, on the left side) Throat: Yes posterior oropharynx normal and Yes tonsils normal (no TP congestion noted) Neck Neck: No lymphadenopathy and Yes tender Thyroid: Thyroid normal Resp Auscultation: clear to auscultation bilaterally, no rales and no wheezes Cardio Rate: regular rate Rhythm: regular rhythm Heart sounds: Murmur heart sound present systolic holo, soft and at the left sternal border GI Palpation (GI): Soft to palpation and nontender Auscultation: normal bowel sounds General: Yes no CVA tenderness Back/Spine/Pelvis Other: (+) right inguinal tenderness on deep palpation Back: no CVA tenderness Cervical Spine: Cervical spine tenderness Thoracic/Lumbar Spine: lumbar spinal tenderness Sacroiliac joints: bilaterally tender to palpation Skin Rashes: no rashes Extrem General: Yes no clubbing, cyanosis or edema Right upper extremity: shoulder/upper arm Details: tenderness Location: of the A-C joint; no swelling and wrist Details: tenderness and Phalen's negative Left upper extremity: wrist ((+) mild tenderness - (-) Phalen's) and hand Details: normal to inspection (but (+) tremors noted) Results Reviewed Results Reviewed: Laboratory Tests 11/27/24 11/27/24 09:25 09:30 WBC 5.4 Hgb 13.3 Hct 41.0 Plt Count 353 Sodium 142 Potassium 4.1 Creatinine 0.56 Estimated GFR > 60 Fasting Glucose 104 H Calcium 9.6 AST 26 ALT 24 Triglycerides 64 Cholesterol 176 LDL Cholesterol, Calc 97 HDL Cholesterol 67 Vitamin B12 516 Folate 13.3 TSH 1.50 Ur Specific Libby 1.020 Urine Protein Negative Urine Glucose (UA) Negative Urine Blood Negative Urine Nitrite Negative Ur Leukocyte Esterase Trace H Coding Level of Care Code Est Pt Level 4 (82692) Diagnoses Pure hypercholesterolemia E78.00 Mitral valve prolapse I34.1 Migraine without status migrainosus, not intractable, unspecified migraine type G43.909 Intractability: not intractable Migraine type: unspecified Status migrainosus presence: without status migrainosus Gastritis without bleeding, unspecified chronicity, unspecified gastritis type K29.70 Chronicity: unspecified Gastritis bleeding: without bleeding Gastritis type: unspecified gastritis Celiac disease/sprue K90.0 Allergic rhinitis, unspecified seasonality, unspecified trigger J30.9 Allergic rhinitis seasonality: unspecified Allergic rhinitis trigger: unspecified Fibromyalgia M79.7 Degeneration of intervertebral disc of lumbar region with discogenic back pain and lower extremity pain M51.362 Disc-related pain type: discogenic back pain and lower extremity pain Cervicalgia M54.2 Primary osteoarthritis, unspecified site M19.91 Osteoarthritis location: unspecified site Osteoarthritis of right shoulder, unspecified osteoarthritis type M19.011 Osteoarthritis type: unspecified Paresthesia of hand, bilateral R20.2 Tremor of left hand R25.1 Restless leg syndrome G25.81 Right inguinal pain R10.31 Other acute sinusitis, recurrence not specified J01.80 Sinusitis location: other Chronicity: acute Recurrence: not specified as recurrent Insomnia, unspecified type G47.00 Insomnia type: unspecified Episode of recurrent major depressive disorder, unspecified depression episode severity F33.9 Active/Remission status: currently active Major depression episode severity: unspecified Obesity (BMI 30-39.9) E66.9 Additional Codes PHQ-9 - 37966 - PHQ-9 Billing: Yes ([id number]) Assessment & Plan Assessment & Plan (1) Pure hypercholesterolemia: Code(s): E78.00 - Pure hypercholesterolemia, unspecified Category: Medical Plan: Results of her labs done last week reviewed and discussed with patient Reinforced low cholesterol diet Continue Atorvastatin 10 mg QD Will recheck her labs and fasting lipids in 3 months for follow up (2) Mitral valve prolapse: Comment: Echocardiogram done in December 2019 showed (+) mild MVP, mild to moderate TR; LV systolic function is low normal with LVEF of around 50-55% Code(s): I34.1 - Nonrheumatic mitral (valve) prolapse Category: Medical Plan: Follow up with cardiology as scheduled for continuing surveillance Will consider sending patient for an updated echocardiogram for follow up later this year (3) Migraine: Code(s): G43.909 - Migraine, unspecified, not intractable, without status migrainosus Category: Medical Qualifiers: Intractability: not intractable Migraine type: unspecified Status migrainosus presence: without status migrainosus Qualified Code(s): G43.909 - Migraine, unspecified, not intractable, without status migrainosus Plan: Stable -? reinforced avoidance of migraine triggers Continue Sumatriptan 100 mg once a day as needed and Fiorinal capsules 50-325-40 mg 1 capsule every 6-8 hours as needed Follow up with neurology as scheduled (4) Gastritis: Code(s): K29.70 - Gastritis, unspecified, without bleeding Category: Medical Qualifiers: Chronicity: unspecified Gastritis bleeding: without bleeding Gastritis type: unspecified gastritis Qualified Code(s): K29.70 - Gastritis, unspecified, without bleeding Plan: EGD done in 2019 revealed (+) gastric erythema, duodenal erosion with strictures; biopsies came back negative for malignancies Patient had repeat EGD? with dilation of strictures done a couple of years later in 2021 Continue Omeprazole 20 mg QD Follow-up with GI as scheduled (5) Celiac disease/sprue: Code(s): K90.0 - Celiac disease Category: Medical Plan: (+) Hx of celiac disease Patient's labs done a couple of years ago still showed the presence of anti-Gliadin and transglutaminase IgA antibodies consistent with celiac disease Reinforced strict compliance with a gluten free diet (6) Allergic rhinitis: Code(s): J30.9 - Allergic rhinitis, unspecified Category: Medical Qualifiers: Allergic rhinitis seasonality: unspecified Allergic rhinitis trigger: unspecified Qualified Code(s): J30.9 - Allergic rhinitis, unspecified Plan: Continue Fluticasone 50 mcg nasal spray QD PRN (7) Fibromyalgia: Code(s): M79.7 - Fibromyalgia Category: Medical Plan: Continue Lyrica 75 mg BID She is encouraged again to continue with regular exercises to help manage her fibromyalgia symptoms better (8) Lumbar degenerative disc disease: Comment: Grade 1-2 anterolisthesis L5/S1 with moderate to severe bilateral L5 foraminal narrowing Code(s): M51.36 - Other intervertebral disc degeneration, lumbar region Category: Medical Qualifiers: Disc-related pain type: discogenic back pain and lower extremity pain Qualified Code(s): M51.362 - Other intervertebral disc degeneration, lumbar region with discogenic back pain and lower extremity pain Plan: Reinforced activity and weight-lifting restrictions She was going to [facility] for facet injections and pain management in the past but is now seeing [facility] Pain Management She has had several injections into her lower back over the past year but did not seem to have responded much to them so far although she has been receiving trigger point injections into her lower back with some relief recently She also recently underwent L5-S1 basivertebral nerve ablation done with pain management a few months ago but unfortunately did not respond effectively to the treatment She was recently referred by pain management to Dr. Erickson for further evaluation and she recently underwent L4-5, L5-S1 ALIF - procedure on 07/14/2024 - she now feels that the surgery has helped a lot Follow up with neurosurgery as scheduled Continue Tramadol 50 mg 2 tablets every 6 hours as needed, Lidocaine patch 5% 1 patch for 12 hours daily as needed and Metaxalone 800 mg TID PRN (9) Cervicalgia: Code(s): M54.2 - Cervicalgia Category: Medical Plan: Follow up with [facility] pain management as scheduled She has been seen by Dr. Erickson for this as well and was advised that her recent cervical spine MRI done in February 2024 revealed no acute neurologic impingement and there are no surgical indications for her neck at this time (10) Primary osteoarthritis: Code(s): M19.91 - Primary osteoarthritis, unspecified site Category: Medical Qualifiers: Osteoarthritis location: unspecified site Qualified Code(s): M19.91 - Primary osteoarthritis, unspecified site Plan: Continue OTC Tylenol PRN for pain; Tramadol also helps She was taking NSAIDs in the past but was advised to stop last year when she was diagnosed with gastritis (11) Degenerative joint disease of shoulder, right: Code(s): M19.011 - Primary osteoarthritis, right shoulder Category: Medical Qualifiers: Osteoarthritis type: unspecified Qualified Code(s): M19.011 - Primary osteoarthritis, right shoulder Plan: Right shoulder x-rays done a few months ago revealed (+) advanced degenerative changes with narrowing of the subacromial space concerning for rotator cuff pathology Follow up with orthopedics as scheduled (12) Paresthesia of hand, bilateral: Code(s): R20.2 - Paresthesia of skin Category: Medical Plan: (+) Hx of CTS Repeat EMG & NCV done in December 2022 came out NORMAL (13) Tremor of left hand: Code(s): R25.1 - Tremor, unspecified Category: Medical Plan: She was advised that her EMG & NCV from December 2022 came out normal Follow up with neurology as scheduled States that botox injection was originally planned for the dystonia on her upper extremities but she could not afford the co-pay that she had to pay out of pocket (14) Restless leg syndrome: Code(s): G25.81 - Restless legs syndrome Category: Medical Plan: Continue Ropinirole 0.5 mg Q HS - symptoms have been well-controlled on her current Rx (15) Right inguinal pain: Code(s): R10.31 - Right lower quadrant pain Category: Medical Plan: Discussed with patient that this is likely due to some inguinal ligament/groin strain or the pain may be originating from her right hip Will send patient for x-rays of the right hip LIAN for further evaluation (16) Sinusitis: Code(s): J32.9 - Chronic sinusitis, unspecified Category: Medical Qualifiers: Sinusitis location: other Chronicity: acute Recurrence: not specified as recurrent Qualified Code(s): J01.80 - Other acute sinusitis Plan: Will start patient empirically on Augmentin 875 mg BID x 10 days (17) Insomnia: Code(s): G47.00 - Insomnia, unspecified Category: Medical Qualifiers: Insomnia type: unspecified Qualified Code(s): G47.00 - Insomnia, unspecified Plan: Sleep hygiene reinforced Continue Zolpidem ER 12.5 mg Q HS PRN (18) Major depression, recurrent: Code(s): F33.9 - Major depressive disorder, recurrent, unspecified Category: Medical Qualifiers: Active/Remission status: currently active Major depression episode severity: unspecified Qualified Code(s): F33.9 - Major depressive disorder, recurrent, unspecified Plan: Continue Venlafaxine ER 150 mg QD (19) Obesity (BMI 30-39.9): Code(s): E66.9 - Obesity, unspecified Category: Medical Plan: Reinforced diet; exercise and weight loss are unrealistic expectations at present due to patient's numerous physical issues and comorbidities Plan Follow up in 3 months Orders: Orders XR hip RT min 2V Today M25.551 - Pain in right hip, R10.31 - Right lower quadrant pain Complete Blood Count Auto Diff 3 Months D64.9 - Anemia, unspecified Comprehensive [place]. Panel Fast 3 Months E78.00 - Pure hypercholesterolemia, unspecified Lipid Panel 3 Months E78.00 - Pure hypercholesterolemia, unspecified Medications: Refilled amoxicillin-pot clavulanate 875-125 mg 1 tab PO BID 10 days 20 tabs 0RF
--- OUTSIDE RECORDS SUMMARY | 2024-12-03 11:00 | XMS_ITS | Data Portability ---
Author Organization [place] [facility], [facility] Address [address] [facility] [address] [place] [address] Care Team Providers Care Bit Welder Name Role Phone [facility] Primary Care Provider Assessment No assessment recorded. Plan of Treatment Reminders Order Date Submit Date Provider Last Modified By Organization Details Last Modified Time Details Appointments None recorded. Lab urinalysis , dipstick 2017 018 [facility] [address] [facility], [address], [place], [address], 8 16:24:52 Referral None recorded. Procedures facet joint injection, cervical (PROC) - [id number] 2018 019 [email or web address] Not available 9 09:52:02 Surgeries None recorded. Imaging None recorded. Medication Orders None recorded. Patient TargetsNo targets recorded. Patient Instructions Encounter Date Encounter Id Patient Instructions Last Modified By Organization Details Last Modified Time 07/02/2018 [id number] Continue current medications. Routine drug screens. Follow-up [...] this document. Not available 07/02/2018 13:46:50 11/17/2018 [id number] Discussed the option of repeating C4-5 and [...] NG/mL >=5 NONE DETEC VIVI Not Available [id number] [place] [address], [address], 07/09/2018 14:08:31 07/02/20 18 07/02/2018 katerin turat es, QL, scree n, urine barbiturates ur ql cfm >=200 NG/mL >=200 POSIT TIMOTEO Not Available [id number] [place] [address], [place], [address], 07/09/2018 14:08:31 07/02/20 18 07/05/2018 katerin turat es, QL, scree n, urine butalbital ur cfm-mcnc 1380 NG/mL >=200 POSIT TIMOTEO Not Available [id number] [address] [place] [address], [place], [address], 07/09/2018 14:08:31 07/02/20 18 07/02/2018 drug scree n, urine sedative hypnotics ur ql cfm <4 NG/mL >=4 NONE DETEC VIVI Not Available [id number] [address] [place] [address], [address], 07/09/2018 14:08:30 07/02/20 18 07/02/2018 metax alone , QN, urine metaxalone ur ql cfm <50 NG/mL >=50 NONE DETEC VIVI Not Available [id number] [address] [place] [address], [address], 07/09/2018 14:08:30 07/02/20 18 07/02/2018 drug scree n, urine buprenorphin e ur ql cfm <1 NG/mL >=1 NONE DETEC VIVI Not Available [id number] [address] [place] [address], [place], [address], 07/09/2018 14:08:29 07/02/20 18 07/02/2018 drug scree n, urine alcohol metabolites ur ql cfm <200 NG/mL >=200 NONE DETEC VIVI Not Available [id number] [address] [place] [address], [place], [address], 07/09/2018 14:08:29 07/02/20 18 07/02/2018 drug scree n, urine amphetamines ur ql cfm <0 NG/mL >=0 NONE DETEC VIVI Not Available [id number] [address] [place] [address], [place], [address], 07/09/2018 14:08:29 07/02/20 18 07/02/2018 drug scree n, urine tapentadol ur ql cfm <100 NG/mL >=100 NONE DETEC VIIV Not Available [id number] [address] [place] [address], [place], [address], 07/09/2018 14:08:29 07/02/20 18 07/02/2018 drug scree n, urine benzodiaz ur ql cfm <50 NG/mL >=50 NONE DETEC VIVI Not Available [id number] [address] [place] [address], [place], [address], 07/09/2018 14:08:29 07/02/20 18 07/02/2018 drug scree n, urine gabapentinpr egabalin ur ql cfm >=5 mcg/m L >=5 POSIT TIMOTEO Not Available [id number] [place] [address], [address], 07/09/2018 14:08:29 07/02/20 18 07/02/2018 drug scree n, urine bze ur ql cfm <50 NG/mL >=50 NONE DETEC VIVI Not Available [id number] [address] [place] [address], [place], [address], 07/09/2018 14:08:29 07/02/20 18 07/02/2018 drug scree n, urine opiates ur ql cfm <100 NG/mL >=100 NONE DETEC VIVI Not Available [id number] [address] [place] [address], [place], [address], 07/09/2018 14:08:29 07/02/20 18 07/02/2018 drug scree n, urine 6mam ur ql cfm <10 NG/mL >=10 NONE DETEC VIVI Not Available [id number] [address] [place] [address], [place], [address], 07/09/2018 14:08:07/02/20 18 07/02/2018 drug scree n, urine methadone ur ql cfm >=200 NG/mL >=200 POSIT TIMOTEO Not Available [id number] [address] [place] [address], [place], [address], 07/09/2018 14:08:29 07/02/20 18 07/02/2018 drug scree n, urine meperidine ur ql cfm <100 NG/mL >=100 NONE DETEC VIVI Not Available [id number] [address] [place] [address], [place], [address], 07/09/2018 14:08:07/02/20 18 07/02/2018 drug scree n, urine fentanyl+nor fentanyl ur ql cfm <5 NG/mL >=5 NONE DETEC VIVI Not Available [id number] [address] [place] [address], [place], [address], 07/09/2018 14:08:07/02/20 18 07/02/2018 drug scree n, urine carisoprodol +meprob ur ql scn <200 NG/mL >=200 NONE DETEC VIVI Not Available [id number] [address] [place] [address], [place], [address], 07/09/2018 14:08:29 07/02/20 18 07/02/2018 drug scree n, urine tramadol ur ql cfm <100 NG/mL >=100 NONE DETEC IVVI Not Available [id number] [place] [address], [place], [address], 07/09/2018 14:08:29 07/02/20 18 07/02/2018 drug scree n, urine cotinine ur ql cfm <125 NG/mL >=125 NONE DETEC VIVI Not Available [id number] [place] [address], [place], [address], 07/09/2018 14:08:29 07/02/20 18 07/02/2018 drug scree n, urine pH ur 5.4 >= normal NOEMI L Not Available [id number] [place] [address], [place], [address], 07/09/2018 14:08:29 07/02/20 18 07/02/2018 drug scree n, urine creat ur-mcnc 132 mg/dL >=2 normal NOEMI L Not Available [id number] [address] [place] [address], [place], [address], 07/09/2018 14:08:29 07/02/20 18 07/03/2018 drug scree n, urine pregabalin ur cfm-mcnc 106 mcg/m L >=5 POSIT TIMOTEO Not Available [id number] [address] [place] [address], [place], [address], 07/09/2018 14:08:29 07/02/20 18 07/03/2018 drug scree n, urine methadone ur cfm-mcnc 5750 NG/mL >=200 POSIT TIMOTEO Not Available [id number] [place] [address], [place], [address], 07/09/2018 14:08:29 07/02/20 18 07/03/2018 drug scree n, urine EDDP ur cfm-mcnc 39592 NG/mL >=200 POSIT TIMOTEO Not Available [id number] [place] [address], [place], [address], 07/09/2018 14:08:29 07/02/20 18 07/04/2018 drug scree n, urine ethyl glucuronide ur cfm-mcnc <500 NG/mL >=500 NONE DETEC VIVI Not Available [id number] [place] [address], [place], [address], 07/09/2018 14:08:29 07/02/20 18 07/04/2018 drug scree n, urine ethyl sulfate ur cfm-mcnc <200 NG/mL >=200 NONE DETEC VIVI Not Available [id number] [place] [address], [place], [address], 07/09/2018 14:08:29 07/02/20 18 07/02/2018 antid epres sants , quali tativ e, urine sn reuptake inhibitors ur ql >=5 NG/mL >=5 POSIT TIMOTEO Not Available [id number] [place] [address], [place], [address], 07/09/2018 14:08:29 07/02/20 18 07/04/2018 antid epres sants , quali tativ e, urine odv ur cfm-mcnc 09534 NG/mL >=5 POSIT TIMOTEO Not Available [id number] [place] [address], [place], [address], 07/09/2018 14:08:29 07/02/20 18 07/07/2018 antid epres sants , quali tativ e, urine venlafaxine ur cfm-mcnc 06509 NG/mL >=5 POSIT TIMOTEO Not Available [id number] [place] [address], [place], [address], 07/09/2018 14:08:29 07/02/20 18 07/02/2018 drug scree n, urine cathinones synthetic ur ql scn <25 NG/mL >=25 NONE DETEC VIVI Not Available [id number] [address] [place] [address], [place], [address], 07/09/2018 14:08:28 07/02/20 18 07/02/2018 drug scree n, urine cannabinoids synthetic ql scn <2 NG/mL >=2 NONE DETEC VIVI Not Available [id number] [address] [place] [address], [place], [address], 07/09/2018 14:08:28 07/02/20 18 07/02/2018 drug- drug [...] albert de point es.(1 ) Not Available [id number] [place] [address], [place], [address], 07/09/2018 14:08:27 07/02/20 18 07/02/2018 drug- drug inter actio n (ddi) drug-drug interaction profile >=5 NG/mL >=5 POSIT TIMOTEO Not Available [id number] [place] [address], [place], [address], 07/09/2018 14:08:27 07/02/20 18 07/04/2018 drug- drug inter actio n (ddi) O-desmethylv enlafaxine ddi NG/mL >=5 POSIT TIMOTEO Not Available [id number] [place] [address], [place], [address], 07/09/2018 14:08:27 07/02/20 18 07/04/2018 drug- drug inter actio n (ddi) venlafaxine (effexor) ddi NG/mL >=5 POSIT TIMOTEO Not Available [id number] [place] [address], [place], [address], 07/09/2018 14:08:27 07/02/20 18 07/02/2018 drug scree n, urine [place]lafaxine [place] CMP 99374 NG/mL >=5 normal COMPL IANT: Test resul t is consi stent and expec vivi with presc ribed drug. Not Available [id number] [address] [place] [address], [place], [address], 07/09/2018 14:08:27 07/02/20 18 07/02/2018 drug scree n, urine methadone ur CMP 83631 NG/mL >=200 normal COMPL IANT: Test resul t is consi stent and expec vivi with presc ribed drug. Not Available [id number] [place] [address], [place], [address], 07/09/2018 14:08:27 07/02/20 18 07/02/2018 drug scree n, urine butalbital ur CMP 1380 NG/mL >=200 normal COMPL IANT: Test resul t is consi stent and expec vivi with presc ribed drug. Not Available [id number] [place] [address], [address], 07/09/2018 14:08:27 07/02/20 18 07/02/2018 drug scree n, urine pregabalin ur CMP 106 mcg/m L >=5 normal COMPL IANT: Test resul t is consi stent and expec vivi with presc ribed drug. Not Available [id number] [place] [address], [place], [address], 07/09/2018 14:08:27 07/02/20 18 07/02/2018 drug scree n, urine mextaxalone ur CMP <50 NG/mL >=50 abnormal NON-C OMPLI ANT: Test resul t indic ates patie nt may not be takin g drug presc ribed . Not Available [id number] [place] [address], [place], [address], 07/09/2018 14:08:27 07/02/20 18 07/02/2018 drug scree n, urine hydrocodone ur CMP <100 NG/mL >=100 normal PRN - NOT PRESE NT: Test resul t is consi stent and expec vivi with presc ribed drug. Not Available [id number] [place] [address], [place], [address], 07/09/2018 14:08:27 07/02/20 18 07/02/2018 drug scree n, urine zolpidem ur CMP <4 NG/mL >=4 normal PRN - NOT PRESE NT: Test resul t is consi stent and expec vivi with presc ribed drug. Not Available [id number] [address] [facility], [place], [address], 07/09/2018 14:08:27 Result Notes None recorded. Problems Name Problem SNOMED Code Status Onset Date Resolution Date Notes Provider Name and Address Organization Details Recorded Time Long-term drug therapy Active 018 MATTY BECKMAN [address] [place] [address] [address], [place], [address] , [place] [facility] 8 13:45:43 Migraine 99171868 Active 018 MATTY BECKMAN [address] [place] [address] [address], [place], [address] , [place] [facility] 8 13:45:52 Neck pain 77814425 Active 018 MATTY BECKMAN [address] [place] [address] [address], [place], [address] , [place] [facility] 8 13:46:15 Problem Notes None recorded. Procedures Surgical History Date Name Laterality Status Provider Name and Address Organization Details Recorded Time 12/01/19 19 [place] [address] [place] [address] [address], [place], [address], [place] [facility] 12/01/2018 20:04:13 11/24/19 19 EWatson 25g Cervical Facet Injection completed Jennifer Quintana MD [facility] [address] [address], [place], [address], [place] [facility] 11/24/2018 13:09:09 08/27/20 18 [place] [address] [place] [address] [address], [place], [address], [place] [facility] 09/16/2018 16:50:17 06/11/20 18 EWatson 25g Cervical Facet Injection completed Jennifer Quintana MD [address] [address] [address], [place], [address], [place] [facility] 06/11/2018 10:00:33 05/27/20 18 Botox completed Jennifer Quintana MD [address] [place] [address] [address], [place], [address], [place] [facility] 05/28/2018 14:24:07 10/07/19 18 Left Foot completed Salomon Apodaca MD [address] [place] [address] [address], [place], [address], [place] [facility] 05/12/2018 15:01:34 10/07/19 17 Shoulder arthroscopy-left completed Salomon Apodaca MD [address] [place] [address] [address], [place], [address], [place] [facility] 05/12/2018 15:01:34 10/07/19 14 Left Total Knee Arthroplasty completed Salomon Apodaca MD [address] [place] [address] [address], [place], [address], [place] [facility] 05/12/2018 15:01:34 10/07/19 13 Left Hand/Wrist Surgery completed Salomon Apodaca MD [address] [place] [address] [address], [place], [address], [place] [facility] 05/12/2018 15:01:34 10/07/19 13 Right Hand/Wrist Surgery completed Salomon Apodaca MD [address] [place] [address] [address], [place], [address], [place] [facility] 05/12/2018 15:01:34 10/07/19 12 Right Knee Arthroplasty completed Salomon Apodaca MD [address] [place] [address] [address], [place], [address], [place] [facility] 05/12/2018 15:01:34 10/07/19 10 Hysterectomy completed Salomon Apodaca MD [address] [place] [address] [address], [place], [address], [place] [facility] 05/12/2018 15:01:34 10/07/18 92 Other completed Salomon Apodaca MD [address] [place] [address] [address], [place], [address], [place] [facility] 05/12/2018 15:01:34 10/07/18 81 Gallbladder Surgery completed Salomon Apodaca MD [address] [place] [address] [address], [place], [address], [place] [facility] 05/12/2018 15:01:34 Imaging Results None recorded. Procedure Notes None recorded. Medical Equipment None Reported. Allergies Allergen ID Allergen Name Allergen Category Reaction Reaction Severity Criticality Documentation Date Start Date Code Code System Note Provider Name and Address Organization Details Recorded Time 96072 fentanyl medicatio n diarrhea moderate Not available 05/12/2018 4337 RxNorm Not Available Not Available Not Available 10701 latex environme nt,medica tion itching moderate Not available 05/12/2018 07229 91 RxNorm Not Available Not Available Not Available 84648 Substance with sulfonami de structure and antibacte rial mechanism of action (substanc e) medicatio n eye redness moderate Not available 05/12/2018 66329 8003 SNOMED Not Available Not Available Not Available 23236 Product containin g penicilli n (product) medicatio n rash moderate Not available 05/12/2018 07566 8001 SNOMED Not Available Not Available Not [...] Details Last Updated DateTime 07/02/2018 160.02 cm Pam Kilgore [place] [facility] 8 09:56:40 Date Recorded Body height Provider Name an d Address Organization Details Last Updated DateTime 08/27/2018 160.02 cm Pam Kilgore [place] [facility] 8 11:13:31 Date Recorded Body height Provider Name an d Address Organization Details Last Updated DateTime 11/17/2018 160.02 cm Summer Matos [place] [facility] 9 13:04:40 Date Recorded Body height Heart rate Systolic blood pressure Diastolic blood pressure Provider Name and Address Organization Details Last Updated DateTime 11/24/2018 160.02 cm 78 /min 125 mm[Hg] 76 mm[Hg] Patricia Chand [place] [facility] 11/24/2018 12:57:48 Social History Question Answer Notes LastModified by Organizat ion Details LastModified Time Tobacco Smoking Status Never Smoker Salomon Apodaca MD [address] [address] [address], [place], [address], [facility] 05/12/2018 15:01:33 What Is Your [...] Prostate N MRSA N Blood Transfusion N Hernia N Emphysema N COPD N Difibrillator N Pacemaker N Vascular Disease N Congestive Heart Failure N Problems with Anesthesia Y Arthritis Y Blood Clot N Cancer N Stroke N Alzheimer's/Dementia N High Cholesterol N Liver Disease N Rheumatoid Arthritis N Fibromyalgia Y Kidney Disease N Heart Problems Y Osteoarthritis Y Scoliosis N Lyme Disease N Thyroid Problems N Anemia N Multiple Sclerosis N Heart Attack (MD) N Ulcers N Stomach Ulcers N Diabetes [...] SNOMED-CT Code Diagnosis ICD10 Code Diagnosis Note [id number] Salomon Apodaca MD Main- [address] [address] 05/12/2018 14:28:23 05/15/2018 14:40:31 Neck pain 97719118 M54.2 We discussed the nature of the [...] during the next visit. Cervical spondylosis 387 782986 M47.812 Degenerati on of cervical intervertebral disc 51749445 M50.30 [id number] Jennifer Quintana MD [facility] [address] [place] [address] 05/27/2018 14:25:39 05/27/2018 16:05:07 Refractory migraine without aura 815451156 G43.719 [id number] Salomon Apodaca MD [facility] [address] [place] [address] 06/02/2018 08:59:35 06/02/2018 13:19:37 Neck pain 14573295 M54.2 X-ray findings/i nterpretat ion: {{Mild* Mo [...] discussed and described above. Cervical spondylosis 387 734790 M47.812 Degenerati on of cervical intervertebral disc 46273474 M50.30 [id number] Jennifer Quintana MD [facility] [address] [place] [address] 06/11/2018 09:08:20 06/12/2018 12:20:07 Cervical spondylosis without myelopathy 233148949 M47.812 [id number] Jennifer Quintana MD [facility] [address] [place] [address] 07/02/2018 09:47:24 07/02/2018 11:51:45 Long-term drug therapy 506684729 Z79.899 Migraine 17816143 G43.90 9 Neck pain 93045994 M54.2 [id number] Jennifer Quintana MD [facility] [address] [place] [address] 08/27/2018 11:08:46 09/01/2018 15:47:39 Refractory migraine without aura 315187174 G43.719 [id number] Jennifer Quintana MD [facility] [address] [place] [address] 11/17/2018 12:56:36 11/17/2018 13:34:57 Neck pain 57373483 M54.2 Migraine 30549150 G43.90 9 [id number] Jennifer Quintana MD [facility]- [address] [place] [address] 11/24/2018 12:49:46 11/25/2018 16:03:41 Cervical spondylosis 646686496 M47.812 [id number] Jennifer Quintana MD [facility]- [address] [place] [place] [address] 12/01/2018 12:29:59 12/01/2018 13:23:33 Refractory migraine without aura 965934303 G43.719 Health Concerns Section Related Observation LastModified by Organization Detai ls LastModified Time None Recorded Concern Status LastModified by Organization Details LastModified Time None Recorded Advance Directives Directive None Recorded Payers Encounter Date Sequence Insurance Name Policy Number Policy Ramirez Covered Member ID Ramirez Member ID Guarantor Name 07/02/2018 1 [place]: KAREEM Hdz [id number] Laura Richard Hdz 07/02/2018 2 [place] [employer] 104 Laura Hdz [id number] Laura Hdz 08/27/2018 1 [place]AREEM Hdz [id number] 2 Laura Richard Hdz 08/27/2018 2 [place] [employer] 104 Laura Hdz [id number] Laura Richard Hdz 11/17/2018 1 [place]EM Hdz [id number] 2 Laura E Hdz 11/17/2018 2 [place] [employer] 104 Lauracarolina Hdz [id number] Laura E Hdz 11/24/2018 1 [place]AREEM Hdz [id number] 2 Laura E Hdz 11/24/2018 2 [place] [employer] 104 Lauracarolina Hdz [id number] Laura E Hdz 12/01/2018 1 [place]: GEOVANNYPETEY Hdz [id number] 2 Laura E Hdz 12/01/2018 2 [place] [employer] 104 Laura Hdz [id number] Laura Hdz Notes Date Note Type Note [...] effects or functional issues. Jennifer Quintana MD [address] [place] [address] [address], [place], [address], [facility] 07/02/2018 16:21:18 8 text/html Pt is her for Botox for migraines. no side effect from the previous injection or facial asymmetry. Reports that her headaches are at least 50% better. Continues to have neck pain without radiation. Jennifer Quintana MD [address] [place] [address] [address], [place], [address], [facility] 09/16/2018 16:50:49 9 text/html Pain [...] medications or functional issues. Jennifer Quintana MD [address] [place] [address] [address], [place], [address], [facility] 11/18/2018 08:49:06 9 text/html Last MRI?-05/31/2018No blood thinners past 7 days?-noNo antibiotics?-noDriver Present?-no Jennifer Quintana MD [address] [address] [address], [place], [address], [facility] 11/24/2018 13:20:49 9 text/html patient presents today for Botox injection. Her headaches diminish well for 2 months, then slowly go back to 3-4 headaches per week. Denies side effects from Botox, no dry eyes or dysphasia. Continues on pain medication. No recent fevers or infection. Jennifer Quintana MD [address] [address] [address], [place], [address], [facility] 12/01/2018 20:04:41 OBGyn Episode No OBEpisode recorded.
--- OUTSIDE RECORDS SUMMARY | 2024-12-03 11:00 | XMS_ITS | Clinical Summary ---
Author Organization [address] [facility] Address [address] [place] [address] Phone Care Team Providers Care Machine Assembler Supervisor Name Role Phone Physician, Pcp Unknown Primary [...] Upcoming Encounters Date Type Department Care Team ([facility] Contact Info) Description 12/08/2024 2:30 PM EST Consult Orthopedic Surgery - [place] [address] [address] Marixa Emery MD [address] [address] Health Maintenance Due Date Last [...] complete this topic Insurance MEDICARE Care Teams Machine Assembler Supervisor Relationship Specialty Start Date End Date Physician, Pcp Unknown PCP - General 09/24/24
--- OUTSIDE RECORDS SUMMARY | 2024-12-03 11:00 | XMS_ITS | Clinical Summary ---
Author Organization [facility] Address [address] [place] [address] Care Team Providers Care Fine Craft Artist Name Role Phone Unavailable Primary Care Provider [...] patient's age to complete this topic Insurance [id number] MED[facility]
== END 2024-12-03 10:46 | disposition home or self-care (01) ==
PROVIDERS: PCP Internal Medicine; Visit Provider Internal Medicine
DX: E78.00 Pure hypercholesterolemia, unspecified (principal); I34.1 Nonrheumatic mitral (valve) prolapse; G43.909 Migraine, unspecified, not intractable, without status migrainosus; F33.9 Major depressive disorder, recurrent, unspecified; K29.70 Gastritis, unspecified, without bleeding; K90.0 Celiac disease; J30.9 Allergic rhinitis, unspecified; M79.7 Fibromyalgia; M51.362 Other intervertebral disc degeneration, lumbar region with discogenic back pain and lower extremity pain; M54.2 Cervicalgia; M19.91 Primary osteoarthritis, unspecified site; M19.011 Primary osteoarthritis, right shoulder

== ENCOUNTER 2024-12-03 09:37 | Outpatient (REF) | payer MEDICARE, BC, SELFPAY ==
--- NOTE | ~2024-12-03 | XR_ITS ---
EXAMINATION: XR HIP, RIGHT CLINICAL INFORMATION: M25.551 - Pain in right hip; right groin pain x a few weeks. COMPARISON: None available. TECHNIQUE: Two views of the right hip. FINDINGS: No fracture. Alignment is anatomic. Hip joint space is maintained. Normal acetabular coverage. Soft tissues are unremarkable. Orthopedic hardware from posterior instrumented fusion seen at L4-S1. XR/XR hip RT min 2V IMPRESSION: Normal right hip. Electronically signed by: Rasta Liao MD 12/03/2024 11:32 AM SONY
--- OUTSIDE RECORDS SUMMARY | 2024-12-03 13:15 | XMS_ITS | Data Portability ---
Author Organization [facility]B [facility], MAIN OFFICE Address [address] [place] [address] Care Team Providers Care Sales Trader Name Role Phone ROSIO MARES Primary Care Provider Assessment Encounter Date Assessment Date Assessment LastModified [...] screen, urine 2017 018 Main Office, [address], [address], [place], [address], 8 16:36:58 drug screen, urine 2016 017 CARA Main Office, [address], [address], [place], [address], 7 14:46:03 Referral general surgeon referral - possible ALIF L4/5 L5/S1 please call patient with appt 2016 017 [email or web address] Duran Paris MD, [address], [place], [address], 7 21:27:09 Procedures None recorded. Surgeries None recorded. Imaging XR, cervical spine, 4 or 5 view 2017 018 [email or web address] Main Office, [address], [address], [place], [address], 8 08:25:32 Medication Orders hydrocodone 10 mg-acetamin ophen 325 mg tablet 2016 017 [email or web address] Not available 7 12:54:37 Patient Targets Encounter Date Encounter Id Patient Goals Patient Target Last Modified By Organization Details Last Modified Time [facility] record checked.Low risk UDTBased on the most [...] marijuana, meperidine, methadone, opiates, tapentadol, and tramadol. [email or web address] Not available 08/06/2017 12:59:51 we'll continue current medications.D ROSARIO record checked.Recom mend Botox for migraines. Not available 11/05/2017 12:11:16 [facility] website checked.Naresh nue hydrocodone, Lidoderm patches, Fioricet, Arthrotec, Botox her headaches. Not available 05/04/2018 15:26:02 Patient Instructions Encounter Date Encounter Id Patient Instructions Last Modified By Organization Details Last Modified Time 11/05/2017 [id number] neck pain: care instructions [email or web address] Not available 11/05/2017 12:12:08 04/28/2018 [id number] neck pain: care instructions [email or web address] Not available 04/29/2018 19:29:13 Reason for Referral General Surgeon Referral for Spondylolisthesis consideration of ALIF possible ALIF L4/5 L5/S1 please call patient with appt Referring Physician: Volodymyr Bingham, Orthopedic Surgery, Encounter Date: 05/28/2017 Results Created Date Observation Date Name Description Value Unit Range Abnormal Flag Note LastModifiedBy Organization Detail LastModifiedTime 08/06/20 17 08/06/2017 drug scree n, urine venlafaxine ur CMP 40797 NG/mL >=5 normal COMPL IANT: Test resul t is consi stent and expec vivi with presc ribed drug. Not Available [employer] [address] [place] [address], [address], 08/12/2017 16:12:18 08/06/20 17 08/06/2017 drug scree n, urine methadone ur CMP 00720 NG/mL >=200 normal COMPL IANT: Test resul t is consi stent and expec vivi with presc ribed drug. Not Available [employer] [address] [place] [address], [address], 08/12/2017 16:12:18 08/06/20 17 08/06/2017 drug scree n, urine zolpidem ur CMP 8050 NG/mL >=4 normal COMPL IANT: Test resul t is consi stent and expec vivi with presc ribed drug. Not Available [employer] [address] [facility], [place], [address], 08/12/2017 16:12:18 08/06/20 17 08/06/2017 drug scree n, urine pregabalin ur CMP 115 mcg/m L >=5 normal COMPL IANT: Test resul t is consi stent and expec vivi with presc ribed drug. Not Available [employer] [address] [place], [address], 08/12/2017 16:12:18 08/06/20 17 08/06/2017 drug scree n, urine butalbital ur CMP 1990 NG/mL >=200 normal COMPL IANT: Test resul t is consi stent and expec vivi with presc ribed drug. Not Available [employer] [address] [place] [address], [place], [address], 08/12/2017 16:12:18 08/06/20 17 08/06/2017 drug scree n, urine cathinones synthetic ur ql scn <25 NG/mL >=25 NONE DETEC VIVI Not Available [employer] [address] [place] [address], [place], [address], 08/12/2017 16:12:18 08/06/20 17 08/06/2017 drug scree n, urine buprenorphin e ur ql cfm <1 NG/mL >=1 NONE DETEC VIVI Not Available [employer] [address] [place] [address], [place], [address], 08/12/2017 16:12:18 08/06/20 17 08/06/2017 drug scree n, urine alcohol metabolites ur ql cfm <200 NG/mL >=200 NONE DETEC VIVI Not Available [employer] [address] [place] [address], [place], [address], 08/12/2017 16:12:18 08/06/20 17 08/06/2017 drug scree n, urine ethyl glucuronide ur cfm-mcnc <500 NG/mL >=500 NONE DETEC VIVI Not Available [employer] [address] [place] [address], [place], [address], 08/12/2017 16:12:18 08/06/20 17 08/06/2017 drug scree n, urine ethyl sulfate ur cfm-mcnc <200 NG/mL >=200 NONE DETEC VIVI Not Available [employer] [address] [place] [address], [place], [address], 08/12/2017 16:12:18 08/06/20 17 08/06/2017 drug scree n, urine tapentadol ur ql cfm <100 NG/mL >=100 NONE DETEC VIVI Not Available [employer] [address] [place] [address], [place], [address], 08/12/2017 16:12:18 08/06/20 17 08/06/2017 drug scree n, urine amphetamines ur ql cfm <250 NG/mL >=250 NONE DETEC VIVI Not Available [employer] [address] [place] [address], [place], [address], 08/12/2017 16:12:18 08/06/20 17 08/06/2017 drug scree n, urine barbiturates ur ql cfm >=200 NG/mL >=200 POSIT TIMOTEO Not Available [employer] [address] [place] [address], [place], [address], 08/12/2017 16:12:18 08/06/20 17 08/06/2017 drug scree n, urine butalbital ur cfm-mcnc 1990 NG/mL >=200 POSIT TIMOTEO Not Available [employer] [address] [place] [address], [place], [address], 08/12/2017 16:12:18 08/06/20 17 08/06/2017 drug scree n, urine benzodiaz ur ql cfm <50 NG/mL >=50 NONE DETEC VIVI Not Available [employer] [address] [place] [address], [place], [address], 08/12/2017 16:12:18 08/06/20 17 08/06/2017 drug scree n, urine THC ur ql scn <5 NG/mL >=5 NONE DETEC VIVI Not Available [employer] [address] [place] [address], [place], [address], 08/12/2017 16:12:18 08/06/20 17 08/06/2017 drug scree n, urine gabapentinpr egabalin ur ql cfm >=5 mcg/m L >=5 POSIT TIMOTEO Not Available [employer] [address] [place] [address], [address], 08/12/2017 16:12:18 08/06/20 17 08/06/2017 drug scree n, urine pregabalin ur cfm-mcnc 115 mcg/m L >=5 POSIT TIMOTEO Not Available [employer] [address] [place] [address], [place], [address], 08/12/2017 16:12:18 08/06/20 17 08/06/2017 drug scree n, urine sedative hypnotics ur ql cfm >=4 NG/mL >=4 POSIT TIMOTEO Not Available [employer] [address] [place] [address], [address], 08/12/2017 16:12:18 08/06/20 17 08/06/2017 drug scree n, urine zolpidem ur cfm-mcnc 9 NG/mL >=4 POSIT TIMOTEO Not Available [employer] [address] [place] [address], [address], 08/12/2017 16:12:18 08/06/20 17 08/06/2017 drug scree n, urine zolpidem [id number]-8-[id number] b ur cfm 8040 NG/mL >=4 POSIT TIMOTEO Not Available [employer] [address] [place] [address], [address], 08/12/2017 16:12:18 08/06/20 17 08/06/2017 drug scree n, urine bze ur ql cfm <50 NG/mL >=50 NONE DETEC VIVI Not Available [employer] [address] [place] [address], [place], [address], 08/12/2017 16:12:18 08/06/20 17 08/06/2017 drug scree n, urine opiates ur ql cfm <100 NG/mL >=100 NONE DETEC VIVI Not Available [employer] [address] [place] [address], [place], [address], 08/12/2017 16:12:18 08/06/20 17 08/06/2017 drug scree n, urine 6mam ur ql cfm <10 NG/mL >=10 NONE DETEC VIVI Not Available [employer] [address] [place] [address], [address], 08/12/2017 16:12:18 08/06/20 17 08/06/2017 drug scree n, urine methadone ur ql cfm >=200 NG/mL >=200 POSIT TIMOTEO Not Available [employer] [address] [place] [address], [address], 08/12/2017 16:12:18 08/06/20 17 08/06/2017 drug scree n, urine methadone ur cfm-mcnc 939 NG/mL >=200 POSIT TIMOTEO Not Available [employer] [address] [place] [address], [place], [address], 08/12/2017 16:12:18 08/06/20 17 08/06/2017 drug scree n, urine EDDP ur cfm-mcnc 80053 NG/mL >=200 POSIT TIMOTEO Not Available [employer] [address] [place] [address], [place], [address], 08/12/2017 16:12:18 08/06/20 17 08/06/2017 drug scree n, urine meperidine ur ql cfm <100 NG/mL >=100 NONE DETEC VIVI Not Available [employer] [address] [place] [address], [place], [address], 08/12/2017 16:12:18 08/06/20 17 08/06/2017 drug scree n, urine fentanyl+nor fentanyl ur ql cfm <5 NG/mL >=5 NONE DETEC VIVI Not Available [employer] [address] [place] [address], [place], [address], 08/12/2017 16:12:18 08/06/20 17 08/06/2017 drug scree n, urine carisoprodol +meprob ur ql scn <200 NG/mL >=200 NONE DETEC VIVI Not Available [employer] [address] [place] [address], [address], 08/12/2017 16:12:18 08/06/20 17 08/06/2017 drug scree n, urine tramadol ur ql cfm <100 NG/mL >=100 NONE DETEC VIVI Not Available [employer] [address] [place] [address], [address], 08/12/2017 16:12:18 08/06/20 17 08/06/2017 drug scree n, urine cotinine ur ql cfm <125 NG/mL >=125 NONE DETEC VIVI Not Available [employer] [address] [place] [address], [place], [address], 08/12/2017 16:12:18 08/06/20 17 08/06/2017 drug scree n, urine sn reuptake inhibitors ur ql >=5 NG/mL >=5 POSIT TIMOTEO Not Available [employer] [address] [place] [address], [address], 08/12/2017 16:12:18 08/06/20 17 08/06/2017 drug scree n, urine venlafaxine ur cfm-mcnc 4130 NG/mL >=5 POSIT TIMOTEO Not Available [employer] [address] [place] [address], [address], 08/12/2017 16:12:18 08/06/20 17 08/06/2017 drug scree n, urine odv ur cfm-mcnc 05324 NG/mL >=5 POSIT TIMOTEO Not Available [employer] [address] [place] [address], [address], 08/12/2017 16:12:18 08/06/20 17 08/06/2017 drug scree n, urine cannabinoids synthetic ql scn <2 NG/mL >=2 NONE DETEC VIVI Not Available [employer] [address] [place] [address], [address], 08/12/2017 16:12:18 08/06/20 17 08/06/2017 drug scree n, urine nitrite ur-mcnc <200 mcg/m L <200 normal NOEMI L Not Available [employer] [address] [place] [address], [address], 08/12/2017 16:12:18 08/06/20 17 08/06/2017 drug scree n, urine chromate ur-mcnc <50 mcg/m L <50 normal NOEMI L Not Available [employer] [address] [facility], [place], [address], 08/12/2017 16:12:18 08/06/20 17 08/06/2017 drug scree n, urine pH ur 8.4 hallman 3.5 - 9.0 normal NOEMI L Not Available [employer] [address] [place], [address], 08/12/2017 16:12:18 08/06/20 17 08/06/2017 drug scree n, urine creat ur-mcnc 111 mg/dL >=2 normal NOEMI L Not Available [employer] [address] [place] [address], [place], [address], 08/12/2017 16:12:18 08/06/20 17 08/06/2017 drug scree n, urine sp gr ur 1.0182 hallman >=1.00 20 normal NOEMI L Not Available [employer] [address] [place] [address], [address], 08/12/2017 16:12:18 Result Notes None recorded. Problems Name Problem SNOMED Code Status Onset Date Resolution Date Notes Provider Name and Address Organization Details Recorded Time Arthropath y 496537156 Active 2015 Not Available [employer] 6 10:18:55 Primary central sleep apnea 5094281608048 Active 2015 Not Available [employer] 6 10:18:55 Low back pain 394476546 Active 2015 Not Available [employer] 6 10:18:55 Impingemen t syndrome of shoulder region 097219021 Active 2015 Not Available [employer] 6 10:18:55 Lumbosacra l radiculopa thy 5797591 Active 2015 Not Available [employer] 6 10:18:55 Idiopathic osteoarthr itis 484582183 Active 2014 Not Available [employer] 6 10:18:55 Problem Notes None recorded. Procedures Surgical History Date Name Laterality Status Provider Name and Address Organization Details Recorded Time 01/28/20 18 Botox Initial completed MD Vaibhav Cotter[address], [place], [address], [facility] 01/27/2018 16:07:03 11/05/19 18 Trigger Point Injection completed MD Zay Cotter,[address], [place], [address], [facility] 11/05/2017 12:11:46 08/06/20 17 Trigger Point Injection completed MD Zay [address]ter [address], [place], [address], [facility] 08/06/2017 12:18:34 05/02/20 17 Trigger Point Injection completed MD Zay Cotter,[address], [place], [address], [facility] 05/02/2017 14:55:38 04/17/20 17 EW Discography completed MD Zay Cotter,[address], [place], [address], [facility] 04/17/2017 13:38:35 01/24/20 17 EW 22g Transforaminal Epidural Steroid Injection completed Jennifer Quintana MD [address], [place], [address], [facility] 01/23/2017 14:34:07 10/07/19 17 Rotator Cuff Surgery completed Pam Kilgore [facility] 01/27/2018 11:02:47 10/07/19 14 Knee Surgery completed Molly Pate [facility] 10/10/2016 09:07:15 10/07/19 12 Eye Surgery completed Molly Pate [facility] 10/10/2016 09:07:15 10/07/19 12 Knee Surgery completed Molly Pate [facility] 10/10/2016 09:07:15 10/07/19 11 Hand Surgery completed Molly Pate [facility] 10/10/2016 09:07:15 10/07/19 10 Hysterectomy completed Molly Pate [facility] 10/10/2016 09:07:15 10/07/19 10 Bladder sling completed Molly Pate [facility] 10/10/2016 09:07:15 10/07/18 95 Hand Surgery completed Molly Pate [facility] 10/10/2016 09:07:15 10/07/18 93 Eye Surgery completed Mollyisidro Pate [facility] 10/10/2016 09:07:15 10/07/18 89 Gallbladder Surgery completed Mollyisidro Pate [facility] 10/10/2016 09:07:15 Imaging Results None recorded. Procedure Notes None recorded. Medical Equipment None Reported. Allergies Allergen ID Allergen Name Allergen Category Reaction Reaction Severity Criticality Documentation Date Start Date Code Code System Note Provider Name and Address Organization Details Recorded Time 14586 Product containin g penicilli n (product) medicatio n Not available Not available Not available 08/08/20162010 25655 8001 SNOMED Comme nt: Repor vivi Year: 2010; Not Available [facility] 6 07:37:24 90506 penicilla mine medicatio n Not available Not available Not available 08/08/20162011 7975 RxNorm Sever ity: Unkno wn; [facility] 7 09:12:02 59065 sulfabenz amide Not available Not available Not available Not available 08/08/20162011 41762 RxNorm Sever ity: Unkno wn; [facility] 7 09:12:08 26863 Substance with sulfonami de structure and antibacte rial mechanism of action (substanc e) medicatio n Not available Not available Not available 08/08/20162010 13840 8003 SNOMED Comme nt: Repor vivi Year: 2010; Not Available [facility] 6 07:37:24 89327 latex environme nt,medica tion itching moderate Not available 10/10/2016 80939 91 RxNorm [facility] 7 09:07:13 Medications Name Sig Start Date [...] Updated DateTime 05/28/2017 160.02 cm Sravani Hahn [facility] 05/28/2017 08:33:17 Date Recorded Body height Provider Name an d Address Organization Details Last Updated DateTime 08/06/2017 160.02 cm Jennifer Quintana MD [address], [address], [facility] 08/06/2017 11:30:12 Date Recorded Body height Provider Name an d Address Organization Details Last Updated DateTime 01/27/2018 160.02 cm Pam Kilgore [facility] 01/27/2018 11:02:27 Date Recorded Body height Provider Name an d Address Organization Details Last Updated DateTime 04/28/2018 160.02 cm Pam Kilgore [facility] 04/28/2018 10:51:44 Social History Question Answer Notes LastModified by Organizat ion Details LastModified Time Tobacco Smoking Status Never Smoker Not Available [facility] 08/09/2020 04:06:17 What Is Your Level Of Alcohol Consumption? None [id number] Information not available 08/09/2020 What Is Your Level Of Caffeine Consumption? None [id number] Information not available 08/09/2020 How Much Tobacco Do You Chew? None [id number] Information not available 08/09/2020 Are You Currently Employed? No [id number] Information not available 08/09/2020 Education 2 Year College [email or web address] Informatio n not available 10/10/2016 Which Of Your Hands Is Dominant? Right [id number] Information not available 08/09/2020 Marital Status xuan Informat[employer] n not available 01/27/2018 What Was The Date Of Your Most Recent Tobacco Screening? 04/28/2018 [id number] Information not available 08/09/2020 Sex: Unknown Functional [...] SNOMED-CT Code Diagnosis ICD10 Code Diagnosis Note [id number] MATTY Tipton MAIN OFFICE [address] [place] [address] 10/10/2016 08:30:52 10/10/2016 09:40:07 Full thickness rotator cuff tear 809922832 M75.122 IMAGING: MRI left shoulder shows a [...] like to proceed. Informed consent was obtained. [id number] Jennifer Quintana MD MAIN OFFICE [address] [facility] [address] [place] [address] 10/15/2016 08:11:52 10/15/2016 09:25:39 Full thickness rotator cuff tear 167276144 M75.122 Impingemen t syndrome of shoulder region 087837831 M75.42 Lumbosacra l radiculopathy 3721798 M54.16 Primary ce ntral sleep apnea 8677628499 101 G47.31 [id number] MATTY Tipton MAIN OFFICE [address] [place] [address] 10/24/2016 08:08:01 10/24/2016 08:57:00 History of arthroscopic procedure on shoulder 429190117 Z98.890 IMPRESSION : 2 Weeks s/p left [...] 4 weeks History of major orthopedic surgery 535789988 Z98.890 29137 Ino Carias MD MAIN OFFICE [address] [place] [address] 11/28/2016 08:08:37 11/28/2016 08:31:35 History of arthroscopic procedure on shoulder 672830821 Z98.890 she is 6 weeks out now doing well she can discontinu e her sling. No active range of motion yet. Continue protocol. Follow-up 6 weeks. [id number] MATTY Tipton MAIN OFFICE [address] [place] [address] 01/09/2017 09:18:11 01/09/2017 10:26:53 History of arthroscopic procedure on shoulder 752172871 Z98.890 she is 12 weeks out now and she is doing very well. Recommend that she graduated from physical therapy to a home exercise program. Recommende d that she continue this for about 2 months. At this point she can follow up as needed. Patient was agreeable and all questions were answered today. [id number] Jennifer Quintana MD MAIN OFFICE [address] [place] [address] 01/10/2017 09:34:37 01/10/2017 11:28:59 Arthralgia of the ankle and/or foot 946011530 M25.579 please obtain 3 views of the bilateral ankles and bilateral feet next appointmen t if she is still having pain after the injections . Consider physical therapy. Lumbar radiculopathy 128 936772 M54.16 recommend bilateral S1 nerve blocks. Fibromyalgia 704339612 M 79.7 Low back pain 023684956 M54.5 [id number] Jennifer Quintana MD PAIN CENTER [address] [place] [address] 01/23/2017 13:52:32 01/24/2017 14:45:48 Lumbar radiculopathy 465171405 M54.16 recommend bilateral S1 nerve blocks. 16493 Jennifer Quintana MD MAIN OFFICE [address] [place] [address] 03/12/2017 10:36:03 03/12/2017 11:18:45 Migraine 92625998 G43.909 advised weaning from butalbital as she is able. She has. She failed Topamax. She does not qualify for Botox. Lumbar radiculopathy 128 242600 M54.16 Neck pain 79037134 M54.2 Metatarsalgia 22020902 M 77.40 15089 Volodymyr Bingham MD MAIN OFFICE [address] [place] [address] 03/21/2017 13:16:21 03/21/2017 14:28:53 Low back pain 969895145 M54.5 Neck pain 00521295 M54.2 Lumbosacra l spondylosis 827446190 M47.817 43807 Volodymyr Bingham MD MAIN OFFICE [address] [place] [address] 03/28/2017 14:53:55 03/28/2017 15:23:41 Low back pain 744831171 M54.5 Neck pain 52371020 M54.2 Lumbosacra l spondylosis 586286142 M47.817 Cervical spondylosis 387 419773 M47.812 Degenerati ve spondylolisthesis 9150605 M43.19 M43.16 M43.17 [id number] Jennifer Quintana MD MAIN OFFICE [address] [place] [address] 04/02/2017 12:37:04 04/02/2017 13:42:09 Lumbar spondylosis 918545071 M47.896 Lumbar radiculopathy 128 521513 M54.16 [id number] Jennifer Quintana MD PAIN CENTER [address] [place] [address] 04/17/2017 11:59:28 04/18/2017 08:34:06 Lumbosacral spondylosis without myelopathy 53464966 M47.817 [id number] Jennifer Quintana MD PAIN CENTER [address] [place] [address] 05/02/2017 12:30:38 05/02/2017 13:44:03 Low back pain 709665135 M54.5 Neck pain 29583958 M54.2 [id number] Volodymyr Bingham MD MAIN OFFICE [address] [place] [address] 05/28/2017 08:22:27 05/28/2017 09:28:27 Spondylolisthesis 046991415 M43.19 Lumbosacra l spondylosis 412918621 M47.817 Low back pain 580632815 M54.5 Lumbar dis cogenic pain 851222671 M51.26 [id number] Jennifer Quintana MD MAIN OFFICE [address] [place] [address] 08/06/2017 10:58:18 08/06/2017 12:27:27 Long-term drug therapy 244507328 Z79.891 Low back pain 120406244 M54.5 Cervical s pondylosis with radiculopathy 844046003 M47.22 [id number] Jennifer Quintana MD MAIN OFFICE [address] [place] [address] 11/05/2017 10:50:11 11/05/2017 12:05:58 Neck pain 39069659 M54.2 Migraine without aura 56 130776 G43.009 urine drug screen as per protocol. [id number] Jennifer Quintana MD MAIN OFFICE [address] [place] [address] 01/27/2018 10:34:24 01/27/2018 12:02:53 Long-term drug therapy 964815640 Z79.891 Refractory migraine without aura 277276341 G43.719 [id number] Jennifer Quintana MD MAIN OFFICE [address] [place] [address] 04/28/2018 10:32:18 04/28/2018 11:44:58 Neck pain 49275201 M54.2 given slight anterolist hesis of C3 on 4, will recommend follow-up with Dr. Apodaca. Cervical s pondylosis with radiculopathy 537134125 M47.22 Migraine 33955856 G43.90 9 Health Concerns Section Related Observation LastModified by Organization Detai ls LastModified Time None Recorded Concern Status LastModified by Organization Details LastModified Time None Recorded Advance Directives Directive None Recorded Payers Encounter Date Sequence Insurance Name Policy Number Policy Ramirez Covered Member ID Ramirez Member ID Guarantor Name 05/28/2017 1 [place] KAREEM Ulloa Hdz [id number] Laura E Hdz 05/28/2017 2 [place] [employer] [place] [id number] Laura Laila Hdz [id number] Laura E Hdz 08/06/2017 1 [place] KAREEM MASSEY Laura Laila Hdz [id number] Laura E Hdz 08/06/2017 2 [place] [employer] [place] 104 Laura Laila Hdz [id number] Laura E Hdz 11/05/2017 1 [place] KAREEM MASSEY Laura Laila Hdz [id number] Laura E Hdz 11/05/2017 2 [place] [employer] [place] [place] 104 Laura Laila Hdz [id number] Laura E Hdz 01/27/2018 1 [place]AREEM MASSEY Laura Laila Hdz [id number] Laura E Hdz 01/27/2018 2 [employer] [employer] [place]GRAM 104 Laura E Hdz [id number] Laura E Hdz 04/28/2018 1 [place] KAREEM MASSEY Laura Laila Hdz [id number] Laura E Hdz 04/28/2018 2 [place] [employer] [place] [place] 104 Laura E Hdz [id number] Laura E Hdz Notes Date Note Type [...] to discuss surgical options. Srini Jarquin PA-C [address] [facility],[address], [place], [address], [facility] 06/06/2017 21:36:28 7 text/html Pain Management Follow-UpReported [...] aberrant behavior. Jennifer Quintana MD [address],[facility] [address], [place], [address], [facility] 08/06/2017 12:59:59 8 text/html Pain Management Follow-UpReported [...] if possible. Jennifer Quintana MD [address] [facility] [address], [address], [facility] 11/05/2017 12:12:15 8 text/html Pt presents for her Botox injection today for migraines. Current pain level 1/10. Medications are helping. Denies recent infection or fever. Jennifer Quintana MD [address] [facility] [address], [place], [address], [facility] 01/27/2018 16:14:48 8 text/html Pain Management Follow-UpReported [...] current pain level 10. Jennifer Quintana MD [address] [facility],[address], [place], [address], [facility] 05/04/2018 15:26:40 OBGyn Episode No OBEpisode recorded.
--- OUTSIDE RECORDS SUMMARY | 2024-12-03 13:15 | XMS_ITS | Clinical Summary ---
Author Organization 175 [facility] Address [address] [place] [address] Phone Care Team Providers Care Telephone Clerk Telegraph Office Name Role Phone Physician, Pcp Unknown Primary [...] Upcoming Encounters Date Type Department Care Team ([facility] Contact Info) Description 12/08/2024 2:30 PM EST Consult Orthopedic Surgery - [place] [address] [address] Marixa Emery MD [address] [address] Health Maintenance Due Date Last [...] complete this topic Insurance MEDICARE Care Teams Telephone Clerk Telegraph Office Relationship Specialty Start Date End Date Physician, Pcp Unknown PCP - General 09/24/24
--- OUTSIDE RECORDS SUMMARY | 2024-12-03 13:15 | XMS_ITS | Clinical Summary ---
Author Organization [facility] Facility Address [address] [place] [address] Care Team Providers Care Manager Intensive Care Name Role Phone Unavailable Primary Care Provider [...] patient's age to complete this topic [id number] MED[facility]
== END 2024-12-03 09:38 | disposition home or self-care (01) ==
LOC: HO.XRAY 09:37
PROVIDERS: PCP Internal Medicine; Visit Provider Internal Medicine
DX: E78.00 Pure hypercholesterolemia, unspecified (principal); I34.1 Nonrheumatic mitral (valve) prolapse; G43.909 Migraine, unspecified, not intractable, without status migrainosus; K29.70 Gastritis, unspecified, without bleeding; K90.0 Celiac disease; J30.9 Allergic rhinitis, unspecified; M79.7 Fibromyalgia; M51.362 Other intervertebral disc degeneration, lumbar region with discogenic back pain and lower extremity pain; M54.2 Cervicalgia; M19.011 Primary osteoarthritis, right shoulder; R20.2 Paresthesia of skin; R25.1 Tremor, unspecified; G25.81 Restless legs syndrome; R10.31 Right lower quadrant pain; J01.80 Other acute sinusitis; G47.00 Insomnia, unspecified; F33.9 Major depressive disorder, recurrent, unspecified; E66.9 Obesity, unspecified; Z68.37 Body mass index [BMI] 37.0-37.9, adult; M25.551 Pain in right hip; Z79.899 Other long term (current) drug therapy
CPT/HCPCS: 73502; 96127; 99212

== ENCOUNTER → 2024-12-03 11:04 | Outpatient (BNV) | payer MEDICARE, BC, SELFPAY | PROVIDERS: PCP Internal Medicine; Visit Provider Radiology Diagnostic Radiology | DX: M25.551 Pain in right hip (principal); R10.30 Lower abdominal pain, unspecified | CPT/HCPCS: 73502 ==

== ENCOUNTER 2024-12-23 09:15 | Outpatient (AMB) | payer MEDICARE, BC, SELFPAY ==
--- NOTE | 2024-12-23 09:17 | A.OFFVIS_ITS ---
Vital Signs 12/23/24 09:19 Height 5 ft 2.5 in Weight 207 lb BMI 37.3 BP 160/74 H Blood Pressure Location Lt brachial Position Sitting Respiration 16 Pulse 87 Pulse Source Pulse Oximeter Pulse Oximetry (%) 98 Oxygen Delivery Method Room Air Intake Visit Reasons: Trigger point inj Quality Improvement Specialist Required: No Head Shipper: Head Shipper Present Accompanied by: Mirza Jackson Allergies Sulfa (Sulfonamide Antibiotics) [SULFA (SULFONAMIDE ANTIBIOTICS)] Allergy (Severe, Verified 12/23/24 09:20) ANAPHYLAXIS Penicillins [PENICILLINS] Allergy (Mild, Verified 12/23/24 09:20) RASH latex Adverse Reaction (Severe, Verified 12/23/24 09:20) Rash doxycycline Adverse Reaction (Mild, Verified 12/23/24 09:20) Abdominal Pain Medication List - Last Reconciled 12/23/24 by Bhakti Avila LPN albuterol sulfate 90 mcg/actuation (Ventolin HFA) 2 puffs inhalation Q6H PRN 30 days amoxicillin-pot clavulanate 875-125 mg 1 tab PO BID 10 days atorvastatin 10 mg PO DAILY 90 days azithromycin take 500 mg today (day 1), then 250 mg for 4 days (days 2-5) PO ghsutvxbzk-ciktbla-cyxtcvrf 50-325-40 mg 1 cap PO Q6-8H PRN 30 days calcium carbonate (Calcium 600) 600 mg PO DAILY cholecalciferol (vitamin D3) (Vitamin D3) 25 mcg PO DAILY fluticasone propionate 50 mcg/actuation 1 spray intranasal DAILY lidocaine 5% 1 patch topical DAILY loratadine (Claritin) 10 mg PO BEDTIME lorazepam 0.5 mg PO DAILY PRN 30 days metaxalone 800 mg PO TID PRN xigllfulprko-fjchpmcz-guwmyx (Multivitamin 50 Plus tablet) 1 tab PO DAILY omeprazole 20 mg PO DAILY@0630 pregabalin 75 mg PO BID 30 days ropinirole 1 mg PO BEDTIME 90 days sumatriptan succinate 100 mg PO DAILY PRN 30 days tramadol 100 mg PO Q6H PRN tramadol 100 mg (2 x 50 mg) PO Q6H PRN 48 days venlafaxine ER 150 mg PO DAILY zolpidem ER 12.5 mg PO BEDTIME PRN 30 days HPI HPI Trigger point inj: Details: History of Present Illness The patient is a 69-year-old female presenting with shoulder pain. The condition is related to chronic myofascial pain syndrome, which has been a concern over time. The patient receives periodic treatment, such as trigger point therapy, with beneficial effects noted during previous sessions such as six weeks prior. The current visit was scheduled due to the re-emergence of shoulder pain in recent days. The patient reports activities like crocheting aggravate the condition, particularly affecting the right shoulder due to the repetitive nature of the movement. Stretching exercises have been used to mitigate symptoms; however, the pain persists with inadequate muscle relaxation. Pain Description - Chronic pain related to myofascial syndrome - Onset: Recurrent with exacerbation noted in recent days - Quality: Persistent and affects shoulder movement - Location: Primarily the right shoulder - Aggravating Factors: Repetitive arm movements during crocheting - Relieving Factors: Stretching exercises offer temporary relief - Impact: Affects ability to elevate arms during crocheting Physical Exam - Musculoskeletal- Stiffness noted in the right shoulder area during movement examination. Results Pain Management - Affect: Chronic pain negatively impacting herminio activities - Analgesia: Previous improvement post-trigger point therapy - Adverse Effects: None discussed - Activities of Daily Living: Difficulty with arm elevation during crocheting - Aberrant Drug Related Behaviors: None reported [facility] Medical History (Updated 12/22/24 @ 17:36 by Osmany Browning MD) Degenerative joint disease of shoulder, right Osteoarthritis Arthritis Back pain Celiac sprue GERD (gastroesophageal reflux disease) Anxiety Numbness Sepsis Sleep apnea Sacroiliac dysfunction Migraine Burn injury Sinusitis chronic, frontal Osteopenia Obesity (BMI 30-39.9) Major depression, recurrent Insomnia Primary osteoarthritis Urinary frequency Mitral valve prolapse Allergic rhinitis Gastritis Pure hypercholesterolemia Restless leg syndrome Cervicalgia Lumbar degenerative disc disease Fibromyalgia Surgical History History of lumbar spinal fusion History of bilateral knee arthroplasty Hx of eye surgery History of cataract surgery History of carpal tunnel release History of bunionectomy S/P GINGER-BSO (total abdominal hysterectomy and bilateral salpingo-oophorectomy) History of repair of rotator cuff History of arthroscopy of both knees Hx of cholecystectomy Hx of endoscopy History of colonoscopy Family History Father History of cancer Mother History of cancer History of high blood pressure Hx of diabetes mellitus Social History Household Members: Significant Other Household Members Other:: DAUGHTER AND HER FAMILY Housing: House Are you a primary health care marketing specialist to a significant other at home: No Do you presently have visiting nurse or other home services: No Alcohol intake: current Alcohol intake frequency: a few times a month Patient Tobacco Use Status: Never used Tobacco Tobacco use type: Cigarette e-Cigarette/Vaping Use: Never Used Second Hand Smoke Exposure: Yes service: No Current occupational status: retired Cognitive needs: No Hearing needs: No Vision needs: Yes Physical Exam Vital Signs: Last Vital Signs Pulse 87 12/23/24 09:19 Resp 16 12/23/24 09:19 BP 160/74 H 12/23/24 09:19 Pulse Ox 98 12/23/24 09:19 Oxygen Delivery Method Room Air 12/23/24 09:19 BMI result Body Mass Index 37.3 Office Procedures Injection Trigger Point Multi Details: Pre-procedure diagnosis: Myofascial pain Post-procedure diagnosis: Myofascial pain Site and number of trigger points: Bilateral rhomboids. bilateral trapezius bilateral occipitalis. Bilateral cervical paraspinal Solution: Total volume administered 15 ml (0.25% ropivacaine) The procedure, its benefits, and its risks were explained to the patient and all questions were answered. Prior to the start of the procedure, a ?time out? was performed to confirm correct patient, procedure, and laterality. Trigger points were identified by manual palpation and marked. The skin was cleaned with Chloraprep. A 1.5 inch 25 G needle was used. Each of the trigger points were approximated and elevated in the direction away from the body. Dry needling then took place for five seconds. Approximately 0.5 ml to 1 ml of injectate was delivered to the trigger point followed by dry needling for five seconds. This process was repeated at each trigger point site. The patient tolerated the procedure well. Post-procedure, breath sounds were equal at both sides of the chest. The patient tolerated the procedure well, without complication. The patient denied any numbness, paresthesia, or weakness. Post-procedure vitals were recorded as part of the nursing discharge note in electronic medical record. Following a period of observation, the patient was discharged in stable condition with written discharge instructions. Trigger Point Multiple: 49970- Trigger point injection =/>3 Assessment & Plan Assessment & Plan (1) Myofascial pain: Code(s): M79.18 - Myalgia, other site Category: Medical Plan Plan Trigger point therapy was identified as the primary intervention for the patient?s chronic myofascial pain syndrome manifesting as shoulder pain. Its effectiveness in previous sessions is acknowledged. The incorporation of regular stretching exercises provides additional benefit by temporarily alleviating muscle tension. Evaluation of repetitive actions, such as those performed during crocheting, can guide activity modification to avoid exacerbation. Patient follow-up will be scheduled to review the therapeutic response and adjust care as necessary. Patient was informed and verbally consented to the use of an ambient scribe for clinic note documentation during this visit. Discussion Notes During the consultation, I discussed with the patient the likelihood of chronic myofascial pain as the underlying cause of her shoulder pain, with a treatment focus on trigger point therapy. We reviewed prior successes with this approach and agreed on its continuation as the mainstay therapy. I explained the potential benefits and minimal risks associated with the treatment. The patient reported understanding and consented to proceed with the proposed plan. Additionally, we addressed the importance of stretching and mindful engagement in activities that might aggravate the condition. A follow-up was suggested to monitor improvement. Patient Instructions - Continue with recommended stretching exercises daily. - Resume trigger point therapy appointments as scheduled. - Modify crocheting technique to reduce repetitive strain on the shoulders. - Report any exacerbation of symptoms or failure to improve as expected. Coding Level of Care Code Procedure Only Diagnoses Myofascial pain M79.18 CPT Codes Details - Trigger Point Multiple: 23921- Trigger point injection =/>3 ([id number])
[2024-12-23 09:19] VITALS: BP 160/74; PULSE 87; RESP 16; O2SAT 98; BMI 37.3
--- OUTSIDE RECORDS SUMMARY | 2024-12-23 10:12 | XMS_ITS | Clinical Summary ---
Author Organization [facility] Facility Address [address] [place] [address] Care Team Providers Care Warping Machine Operator Name Role Phone Unavailable Primary Care Provider [...] patient's age to complete this topic Insurance [id number] MEDIC[facility]
--- OUTSIDE RECORDS SUMMARY | 2024-12-23 10:12 | XMS_ITS | Clinical Summary ---
Author Organization 175 [facility] Address [address] [place] [address] Phone Care Team Providers Care Child Care Associate Teacher Name Role Phone Osmany Browning MD Primary Care Provider Allergies Active Allergy Reactions Criticality Noted Date Comments Latex 12/08/2024 Penicillins 12/08/2024 Sulfa (Sulfonamide Antibiotics) 01/2025 Medications atorvastatin (LIPITOR) 10 mg tablet Take 1 tablet (10 mg total) by mouth 1 (one) time each day. 5 Active venlafaxine 150 mg 24 hr tablet 5 Active zolpidem CR (AMBIEN CR) 12.5 mg CR tablet Take 1 tablet (12.5 mg total) by mouth at bedtime as needed. at bedtime Max Daily Amount: 12.5 mg 5 Active traMADoL (ULTRAM) 50 mg tablet Take 2 tablets (100 mg total) by mouth every 6 (six) hours if needed. for pain Max Daily Amount: 400 mg 5 Active SUMAtriptan (IMITREX) 100 mg tablet 5 Active rOPINIRole (REQUIP) 1 mg tablet Take 1 tablet (1 mg total) by mouth. at bedtime 4 Active pregabalin (LYRICA) 75 mg capsule Take 1 capsule (75 mg total) by mouth 2 (two) times a day. Max Daily Amount: 150 mg 5 Active metaxalone (SKELAXIN) 800 mg tablet Take 1 tablet (800 mg total) by mouth 3 (three) times a day if needed for muscle spasms. 5 Active LORazepam (ATIVAN) 0.5 mg tablet Take 1 tablet (0.5 mg total) by mouth 1 (one) time each day if needed. for anxiety Max Daily Amount: 0.5 mg 4 Active ketoconazole (NIZORAL) 2 % shampoo APPLY TO SCALP DAILY ON SATURDAY, SATURDAY AND SATURDAY. LEAVE ON FOR 5 MINUTES THEN WASH OFF DIRECTED 5 Active fluticasone propionate (FLONASE) 50 mcg/actuation nasal spray 5 Active butalbital-aspi rin-caffeine (FIORINAL) 50-325-40 mg per capsule TAKE ONE CAPSULE BY MOUTH EVERY 6 TO 8 HOURS NEEDED FOR HEADACHE FOR 30 DAYS 5 Active Active Problems Problem Noted Date Diagnosed Date Arthritis of finger of both hands 12/08/2024 Encounters Date Type Department Care Team Description 12/08/2024 2:30 PM EST Consult Orthopedic Surgery - [address] [place] [address] Marixa Emery MD Arthritis of finger of both hands (Primary Dx); Disorder of the skin and subcutaneous tissue, unspecified from Last 3 Months Surgical History Surgery Date Site/Laterality Comments CARPAL TUNNEL RELEASE 10/07/2014 - 10/06/2015 Bilateral Social History Tobacco Use Types Packs/Day Years Used Date Smoking Tobacco: Never Assessed Comments Unknown Sex and Gender Information Value Date Recorded Sex Assigned at Not on file Legal Sex Female 9:49 AM EST Gender Identity Not on file Sexual Orientation Not on file Obstetrics History Last Filed Vital Signs Vital Sign Reading Time Taken Comments Blood Pressure - - Pulse - - Temperature - - Respiratory Rate - - Oxygen Saturation - - Inhaled Oxygen Concentration - - Weight 94.8 kg (209 lb) 12/08/2024 2:39 PM EST Height 158.8 cm (5' 2.5 ) 12/08/2024 2:39 PM EST Body Mass Index 37.62 12/08/2024 2:39 PM EST Plan of Treatment Health Maintenance Due Date Last Done Comments Breast Cancer Screening 1955 DTaP,Tdap,and Td Vaccines (1 - Tdap) 1976 Zoster Vaccines (2 of 2) 08/21/2021 06/26/2021 Colorectal Cancer Screening: Colonoscopy 09/24/2024 Depression Screening 09/24/2024 Falls Risk Assessment 09/24/2024 Hepatitis C Screening 09/24/2024 Medicare Annual Wellness Visit 09/24/2024 Osteoporosis Screening (Bone Density Screening) 09/24/2024 Social Influencers of Health Screening 09/24/2024 Pneumococcal Vaccine: 50+ Years Completed 01/30/2023, 06/28/2020 RSV Immunization Patients 60+ Years Old Completed 11/22/2023 COVID-19 Vaccine Completed 08/06/2024, , 02/19/2023, Additional history exists Influenza Vaccine Completed 08/06/2024, , 07/11/2022, Additional history exists HIB Vaccines Aged Out No longer eligi [...] to complete this topic RSV Immunization Patients Under 20 months Aged Out No longer eligible based on patient's age to complete this topic Varicella Vaccines Aged Out No longer eligible based on patient's age to complete this topic Procedures Procedure Name Priority Date/Time Associated Diagnosis Comments XR FINGERS 2+ VIEWS LEFT Routine 12/08/2024 3:19 PM EST Pain XR FINGERS 2+ VIEWS RIGHT Routine 12/08/2024 3:18 PM EST Pain from Last 3 Months Results * XR Fingers 2+ Views Left (12/08/2024 3:19 PM EST) Anatomical Region Laterality Modality Upper Extremities, Fingers Left Compu lanie Radiography Narrative 12/08/2024 6:15 PM EST AP, lateral, oblique of the left long finger was obtained on 12/08/2024. ??No prior images available for comparison. ??Patient has some generalized osteopenia. ??She has joint space loss sclerosis and asymmetric wear at the DIP joint of the long finger. ??Is more advanced than the neighboring digits. ??Consistent with arthritis. Marixa Emery MD IMG XR PROCEDURES Final Resul t * XR Fingers 2+ Views Right (12/08/2024 3:18 PM EST) Anatomical Region Laterality Modality Upper Extremities, Fingers Right Compu lanie Radiography Narrative 12/08/2024 6:16 PM EST AP, lateral, oblique of the right thumb ray was obtained on 12/08/2024. ??No fractures are noted. ??There is generalized osteopenia. ??There is some asymmetric wear at the IP joint of the thumb. ??There is basal joint arthritis with cartilage loss, sclerosis, subchondral cyst formation, and osteophyte formation. ??There is also some sclerosis noted at the STT joint. ??There is also some at the midcarpal joint. ??It looks very reminiscent of rheumatoid. Marixa Emery MD IMG XR PROCEDURES Final Resul t from Last 3 Months Insurance MEDICARE [facility] Care Teams Child Care Associate Teacher Relationship Specialty Start Date End Date Osmany Browning MD [address] [place] [address] [address] TRISTAN Bro PCP - General Internal Medicine 12/08/24
--- OUTSIDE RECORDS SUMMARY | 2024-12-23 10:13 | XMS_ITS | Encounter Summary ---
Author Organization [facility] Address [address] [place] [id number] Care Team Providers Care Director Of Kids Name Role Phone Osmany Browning MD Primary Care Provider + [phone] Reason for Visit * Reason Comments Consult Cyst/mass Consult Cyst/mass * Consultation (Routine) - Closed Specialty Diagnoses / Procedures Referred By Contac t Referred To Contact Orthopaedics / Orthopaedic Surgery Diagnoses Disorder of the skin and subcutaneous tissue, unspecified Austin Schumacher MD [address] [address] Phone: tel: fax: Marixa Emery MD [address] [place] [phone] Phone: tel: fax: Referral ID Status Reason Start Date Expiration Date V isits Requested Visits Authorized [id number] Closed Specialty Services Required 09/24/2024 09/24/2025 1 1 Encounter Details Date Type Department Care Team ([facility] Contact Info) Description 12/08/2024 2:30 PM EST Consult Orthopedic Surgery - [place] [address] [id number] Marixa Emery MD [address] [id number] Arthritis of finger of both hands (Primary Dx); Disorder of the skin and subcutaneous tissue, unspecified Social History Tobacco Use Types Packs/Day Years Used Date Smoking Tobacco: Never Assessed Comments Unknown Sex and Gender Information Value Date Recorded Sex Assigned at Not on file Legal Sex Female 9:49 AM EST Gender Identity Not on file Sexual Orientation Not on file documented as of this encounter Last Filed Vital Signs Vital Sign Reading Time Taken Comments Blood Pressure - - Pulse - - Temperature - - Respiratory Rate - - Oxygen Saturation - - Inhaled Oxygen Concentration - - Weight 94.8 kg (209 lb) 12/08/2024 2:39 PM EST Height 158.8 cm (5' 2.5 ) 12/08/2024 2:39 PM EST Body Mass Index 37.62 12/08/2024 2:39 PM EST documented in this encounter Progress Notes * Marixa Emery MD - 12/08/2024 2:30 PM EST CHIEF COMPLAINT/REASON FOR VISIT: Patient is here for evaluation of a cyst that she had on her finger. SUBJECTIVE: Patient initially had a bump on the back of her left long finger. It was somewhat bothersome and sore. It has since gotten smaller and what she is aware of now that her right thumb seems to have a similar process going on. She has not had these before. She has not had any trauma. OBJECTIVE: On exam the patient has a little bump on the dorsum of the left long finger but it feels like bone.She has a slight swan-neck posture. When I move the joint has some laxity to it so I suspect it is got some erosive wear rendering it slightly unstable. It does not seem to cause her much pain. She is able to flex it. Looking at the other hand on the right she has a bump on the dorsal radial aspectof the IP joint consistent with a mucoid cyst. The skin is not then. She is able to flex the joint down to 50 degrees and extend it. No instability of the joint. Mildly uncomfortable with palpation. She otherwise is neurovascular intact. None the other fingers have any bumps the size. She does havesome enlargement of the basal joints bilaterally. XR Fingers 2+ Views Right AP, lateral, oblique of the right thumb ray was obtained on 12/08/2024. No fractures are noted. There is generalized osteopenia. There is some asymmetric wear at the IP joint of the thumb. There is basal joint arthritis with cartilage loss, sclerosis, subchondral cyst formation, and osteophyte formation. There is also some sclerosis noted at the STT joint. There is also some at the midcarpal joint. It looks very reminiscent of rheumatoid. XR Fingers 2+ Views Left AP, lateral, oblique of the left long finger was obtained on 12/08/2024. No prior images available for comparison. Patient has some generalized osteopenia. She has joint space loss sclerosis and asymmetric wear at the DIP joint of the long finger. Is more advanced than the neighboring digits. Consistent with arthritis. ASSESSMENT: 1. Arthritis of finger of both hands 2. Disorder of the skin and subcutaneous tissue, unspecified Ambulatory referral to Orthopedic Surgery Patient has some arthritic changes in her fingers. She is getting some associated mucoid cyst. I went over this with her. Right now none of it is very prominent. She may indicates the thumb feel morecomfortable little Coban wrap for some light compression and that was applied here today. She may use this as needed. If the cyst return and are problematic because they thin the skin I recommended she return. Unfortunately we cannot do anything to prevent these from happening. We also talked a little bit about the deformity of the long finger where she has the swan-neck posture. This is due to just the stretching out of the extensor tendon. Again no treatment right now but if she starts havingsome functional issues she was advised to return. She indicated understanding. She will try the Coban. She will return if there are any issues. PLAN: As needed Marixa Emery MD documented in this encounter Plan of Treatment Not on file documented as of this encounter Visit Diagnoses Diagnosis Arthritis of finger of both hands- Primary Disorder of the skin and subcutaneous tissue, unspecified documented in this encounter Historical Medications * This list may reflect changes made after this encounter. butalbital-aspir in-caffeine (FIORINAL) 50-325-40 mg per capsule TAKE ONE CAPSULE BY MOUTH EVERY 6 TO 8 HOURS NEEDED FOR HEADACHE FOR 30 DAYS 11/26/2024 fluticasone propionate (FLONASE) 50 mcg/actuation nasal spray 12/07/2024 ketoconazole (NIZORAL) 2 % shampoo APPLY TO SCALP DAILY ON SATURDAY, SATURDAY AND SATURDAY. LEAVE ON FOR 5 MINUTES THEN WASH OFF DIRECTED 11/12/2024 LORazepam (ATIVAN) 0.5 mg tablet Take 1 tablet (0.5 mg total) by mouth 1 (one) time each day if needed. for anxiety Max Daily Amount: 0.5 mg 08/04/2024 metaxalone (SKELAXIN) 800 mg tablet Take 1 tablet (800 mg total) by mouth 3 (three) times a day if needed for muscle spasms. 11/25/2024 pregabalin (LYRICA) 75 mg capsule Take 1 capsule (75 mg total) by mouth 2 (two) times a day. Max Daily Amount: 150 mg 11/26/2024 rOPINIRole (REQUIP) 1 mg tablet Take 1 tablet (1 mg total) by mouth. at bedtime 09/21/2024 SUMAtriptan (IMITREX) 100 mg tablet 12/07/2024 traMADoL (ULTRAM) 50 mg tablet Take 2 tablets (100 mg total) by mouth every 6 (six) hours if needed. for pain Max Daily Amount: 400 mg 11/19/2024 zolpidem CR (AMBIEN CR) 12.5 mg CR tablet Take 1 tablet (12.5 mg total) by mouth at bedtime as needed. at bedtime Max Daily Amount: 12.5 mg 11/26/2024 venlafaxine 150 mg 24 hr tablet 12/04/2024 atorvastatin (LIPITOR) 10 mg tablet Take 1 tablet (10 mg total) by mouth 1 (one) time each day. 11/02/2024 added in this encounter Orders Outpatient Referral Count Last Ordered Date Fir st Ordered Date AMB REFERRAL TO ORTHOPEDIC SURGERY 1 2024 documented in this encounter Care Teams Director Of Kids Relationship Specialty Start Date End Date Osmany Browning MD [address] [place] [address] Dr [address] [place] PCP - General Internal Medicine 12/08/24 documented as of this encounter
--- OUTSIDE RECORDS SUMMARY | 2024-12-23 10:13 | XMS_ITS | Data Portability ---
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 SCANS: Lumbar MRI (done at [facility] on 03/26/2017) findings/interpreta tion: Multilevel spondylosis. Disc [...] screen, urine 2017 018 Main Office, [address] [facility] [address], [address], [place], [address], 8 16:36:58 drug screen, urine 2016 017 [facility] Main Office, [address], [address], [place], [address], 7 14:46:03 Referral general surgeon referral - possible ALIF L4/5 L5/S1 please call patient with appt 2016 017 [email or web address] Duran Paris MD, [address], [place], [address], 7 21:27:09 Procedures None recorded. Surgeries None recorded. Imaging XR, cervical spine, 4 or 5 view 2017 018 [email or web address] Main Office, [address], [address], [place], [address], 8 08:25:32 Medication Orders hydrocodone 10 mg-acetamin ophen 325 mg tablet 2016 017 [email or web address] Not available 7 12:54:37 Patient Targets Encounter Date Encounter Id Patient Goals Patient Target Last Modified By Organization Details Last Modified Time [facility] record checked.Low risk UDTBased on the most [...] marijuana, meperidine, methadone, opiates, tapentadol, and tramadol. [email or web address] Not available 08/06/2017 12:59:51 we'll continue current medications.D ROSARIO record checked.Recom mend Botox for migraines. [email or web address] Not available 11/05/2017 12:11:16 [facility] website checked.Naresh nue hydrocodone, Lidoderm patches, Fioricet, Arthrotec, Botox her headaches. [email or web address] Not available 05/04/2018 15:26:02 Patient Instructions Encounter Date Encounter Id Patient Instructions Last Modified By Organization Details Last Modified Time 11/05/2017 [id number] neck pain: care instructions [email or web address] Not available 11/05/2017 12:12:08 04/28/2018 [id number] neck pain: care instructions [email or web address] Not available 04/29/2018 19:29:13 Reason for Referral General Surgeon Referral for Spondylolisthesis consideration of ALIF possible ALIF L4/5 L5/S1 please call patient with appt Referring Physician: Volodymyr Bingham, Orthopedic Surgery, Encounter Date: 05/28/2017 Results Created Date Observation Date Name Description Value Unit Range Abnormal Flag Note LastModifiedBy Organization Detail LastModifiedTime 08/06/20 17 08/06/2017 drug scree n, urine venlafaxine ur CMP 66021 NG/mL >=5 normal COMPL IANT: Test resul t is consi stent and expec vivi with presc ribed drug. Not Available [facility] [address] [place] [address], [id number], 08/12/2017 16:12:18 08/06/20 17 08/06/2017 drug scree n, urine methadone ur CMP 13793 NG/mL >=200 normal COMPL IANT: Test resul t is consi stent and expec vivi with presc ribed drug. Not Available [facility] [address] [place] [address], [id number], 08/12/2017 16:12:18 08/06/20 17 08/06/2017 drug scree n, urine zolpidem ur CMP 8050 NG/mL >=4 normal COMPL IANT: Test resul t is consi stent and expec vivi with presc ribed drug. Not Available [facility] [address] [facility], [place], [address], 08/12/2017 16:12:18 08/06/20 17 08/06/2017 drug scree n, urine pregabalin ur CMP 115 mcg/m L >=5 normal COMPL IANT: Test resul t is consi stent and expec vivi with presc ribed drug. Not Available [facility] [address] [place], [address], 08/12/2017 16:12:18 08/06/20 17 08/06/2017 drug scree n, urine butalbital ur CMP 1990 NG/mL >=200 normal COMPL IANT: Test resul t is consi stent and expec vivi with presc ribed drug. Not Available [facility] [address] [place] [address], [place], [address], 08/12/2017 16:12:18 08/06/20 17 08/06/2017 drug scree n, urine cathinones synthetic ur ql scn <25 NG/mL >=25 NONE DETEC VIVI Not Available [facility] [address] [place] [address], [place], [address], 08/12/2017 16:12:18 08/06/20 17 08/06/2017 drug scree n, urine buprenorphin e ur ql cfm <1 NG/mL >=1 NONE DETEC VIVI Not Available [facility] [address] [place] [address], [place], [address], 08/12/2017 16:12:18 08/06/20 17 08/06/2017 drug scree n, urine alcohol metabolites ur ql cfm <200 NG/mL >=200 NONE DETEC VIVI Not Available [facility] [address] [place] [address], [place], [address], 08/12/2017 16:12:18 08/06/20 17 08/06/2017 drug scree n, urine ethyl glucuronide ur cfm-mcnc <500 NG/mL >=500 NONE DETEC VIVI Not Available [facility] [address] [place] [address], [place], [address], 08/12/2017 16:12:18 08/06/20 17 08/06/2017 drug scree n, urine ethyl sulfate ur cfm-mcnc <200 NG/mL >=200 NONE DETEC VIVI Not Available [facility] [address] [place] [address], [place], [address], 08/12/2017 16:12:18 08/06/20 17 08/06/2017 drug scree n, urine tapentadol ur ql cfm <100 NG/mL >=100 NONE DETEC VIVI Not Available [employer] [facility] [address] [place] [address], [place], [address], 08/12/2017 16:12:18 08/06/20 17 08/06/2017 drug scree n, urine amphetamines ur ql cfm <250 NG/mL >=250 NONE DETEC VIVI Not Available [facility] [address] [place] [address], [place], [address], 08/12/2017 16:12:18 08/06/20 17 08/06/2017 drug scree n, urine barbiturates ur ql cfm >=200 NG/mL >=200 POSIT [facility] Not Available [facility] [address] [place] [address], [place], [address], 08/12/2017 16:12:18 08/06/20 17 08/06/2017 drug scree n, urine butalbital ur cfm-mcnc 1990 NG/mL >=200 POSIT [facility]OTE[facility] Not Available [facility] [address] [place] [address], [place], [address], 08/12/2017 16:12:18 08/06/20 17 08/06/2017 drug scree n, urine benzodiaz ur ql cfm <50 NG/mL >=50 NONE DETEC VIVI Not Available [facility] [address] [place] [address], [place], [address], 08/12/2017 16:12:18 08/06/20 17 08/06/2017 drug scree n, urine THC ur ql scn <5 NG/mL >=5 NONE DETEC VIVI Not Available [facility] [address] [place] [address], [place], [address], 08/12/2017 16:12:18 08/06/20 17 08/06/2017 drug scree n, urine gabapentinpr egabalin ur ql cfm >=5 mcg/m L >=5 POSIT [facility]OTE[facility] Not Available [facility] [address] [place] [address], [address], 08/12/2017 16:12:18 08/06/20 17 08/06/2017 drug scree n, urine pregabalin ur cfm-mcnc 115 mcg/m L >=5 POSIT [facility] Not Available [facility] [address] [place] [address], [place], [address], 08/12/2017 16:12:18 08/06/20 17 08/06/2017 drug scree n, urine sedative hypnotics ur ql cfm >=4 NG/mL >=4 POSIT [facility]OTE[facility] Not Available [facility] [address] [place] [address], [address], 08/12/2017 16:12:18 08/06/20 17 08/06/2017 drug scree n, urine zolpidem ur cfm-mcnc 9 NG/mL >=4 POSIT TIMOTEO Not Available [facility] [address] [place] [address], [address], 08/12/2017 16:12:18 08/06/20 17 08/06/2017 drug scree n, urine zolpidem [id number] b ur cfm 8040 NG/mL >=4 POSIT [facility]OTE[facility] Not Available [facility] [address] [place] [address], [address], 08/12/2017 16:12:18 08/06/20 17 08/06/2017 drug scree n, urine bze ur ql cfm <50 NG/mL >=50 NONE DETEC VIVI Not Available [facility] [address] [place] [address], [place], [address], 08/12/2017 16:12:18 08/06/20 17 08/06/2017 drug scree n, urine opiates ur ql cfm <100 NG/mL >=100 NONE DETEC VIVI Not Available [facility] [address] [place] [address], [place], [address], 08/12/2017 16:12:18 08/06/20 17 08/06/2017 drug scree n, urine 6mam ur ql cfm <10 NG/mL >=10 NONE DETEC VIVI Not Available [facility] [address] [place] [address], [address], 08/12/2017 16:12:18 08/06/20 17 08/06/2017 drug scree n, urine methadone ur ql cfm >=200 NG/mL >=200 POSIT [facility]OTE[facility] Not Available [facility] [address] [place] [address], [address], 08/12/2017 16:12:18 08/06/20 17 08/06/2017 drug scree n, urine methadone ur cfm-mcnc 939 NG/mL >=200 POSIT TIMOTOE Not Available [facility] [address] [place] [address], [place], [address], 08/12/2017 16:12:18 08/06/20 17 08/06/2017 drug scree n, urine EDDP ur cfm-mcnc 13268 NG/mL >=200 POSIT TIMOTE[facility] Not Available [facility] [address] [place] [address], [place], [address], 08/12/2017 16:12:18 08/06/20 17 08/06/2017 drug scree n, urine meperidine ur ql cfm <100 NG/mL >=100 NONE DETEC VIVI Not Available [facility] [address] [place] [address], [place], [address], 08/12/2017 16:12:18 08/06/20 17 08/06/2017 drug scree n, urine fentanyl+nor fentanyl ur ql cfm <5 NG/mL >=5 NONE DETEC VIVI Not Available [facility] [address] [place] [address], [place], [address], 08/12/2017 16:12:18 08/06/20 17 08/06/2017 drug scree n, urine carisoprodol +meprob ur ql scn <200 NG/mL >=200 NONE DETEC VIVI Not Available [facility] [address] [place] [address], [address], 08/12/2017 16:12:18 08/06/20 17 08/06/2017 drug scree n, urine tramadol ur ql cfm <100 NG/mL >=100 NONE DETEC VIVI Not Available [facility] [address] [place] [address], [address], 08/12/2017 16:12:18 08/06/20 17 08/06/2017 drug scree n, urine cotinine ur ql cfm <125 NG/mL >=125 NONE DETEC VIVI Not Available [facility] [address] [place] [address], [place], [address], 08/12/2017 16:12:18 08/06/20 17 08/06/2017 drug scree n, urine sn reuptake inhibitors ur ql >=5 NG/mL >=5 POSIT TIMOTEO Not Available [facility] [address] [place] [address], [address], 08/12/2017 16:12:18 08/06/20 17 08/06/2017 drug scree n, urine venlafaxine ur cfm-mcnc 4130 NG/mL >=5 POSIT TIMOTEO Not Available [facility] [address] [place] [address], [address], 08/12/2017 16:12:18 08/06/20 17 08/06/2017 drug scree n, urine odv ur cfm-mcnc 45103 NG/mL >=5 POSIT TIMOTEO Not Available [facility] [address] [place] [address], [address], 08/12/2017 16:12:18 08/06/20 17 08/06/2017 drug scree n, urine cannabinoids synthetic ql scn <2 NG/mL >=2 NONE DETEC VIVI Not Available [facility] [address] [place] [address], [address], 08/12/2017 16:12:18 08/06/20 17 08/06/2017 drug scree n, urine nitrite ur-mcnc <200 mcg/m L <200 normal NOEMI L Not Available [facility] [address] [place] [address], [address], 08/12/2017 16:12:18 08/06/20 17 08/06/2017 drug scree n, urine chromate ur-mcnc <50 mcg/m L <50 normal NOEMI L Not Available [facility] [address] [facility], [place], [address], 08/12/2017 16:12:18 08/06/20 17 08/06/2017 drug scree n, urine pH ur 8.4 hallman 3.5 - 9.0 normal NOEMI L Not Available [facility] [address] [place], [address], 08/12/2017 16:12:18 08/06/20 17 08/06/2017 drug scree n, urine creat ur-mcnc 111 mg/dL >=2 normal NOEMI L Not Available [facility] [address] [place] [address], [place], [address], 08/12/2017 16:12:18 08/06/20 17 08/06/2017 drug scree n, urine sp gr ur 1.0182 hallman >=1.00 20 normal NOEMI L Not Available [facility] [address] [place] [address], [address], 08/12/2017 16:12:18 Result Notes None recorded. Problems Name Problem SNOMED Code Status Onset Date Resolution Date Notes Provider Name and Address Organization Details Recorded Time Arthropath y 205605317 Active 2015 Not Available [facility] 6 10:18:55 Primary central sleep apnea 7107916015329 Active 2015 Not Available [facility] 6 10:18:55 Low back pain 657488179 Active 2015 Not Available [facility] 6 10:18:55 Impingemen t syndrome of shoulder region 756711530 Active 2015 Not Available [facility] 6 10:18:55 Lumbosacra l radiculopa thy 4074967 Active 2015 Not Available [facility] 6 10:18:55 Idiopathic osteoarthr itis 650980887 Active 2014 Not Available [facility] 6 10:18:55 Problem Notes None recorded. Procedures Surgical History Date Name Laterality Status Provider Name and Address Organization Details Recorded Time 01/28/20 18 Botox Initial completed MD Vaibhav Cotter[address], [place], [address], [facility] 01/27/2018 16:07:03 11/05/19 18 Trigger Point Injection completed MD Zay Cotter,[address], [place], [address], [facility] 11/05/2017 12:11:46 08/06/20 17 Trigger Point Injection completed MD Zay Cotter [address], [place], [address], [facility] 08/06/2017 12:18:34 05/02/20 17 Trigger Point Injection completed MD Zay Cotter,[address], [place], [address], [facility] 05/02/2017 14:55:38 04/17/20 17 EW Discography completed MD Zay Cotter,[address], [place], [address], [facility] 04/17/2017 13:38:35 01/24/20 17 EW 22g Transforaminal Epidural Steroid Injection completed Jennifer Quintana MD [address], [place], [address], [facility] 01/23/2017 14:34:07 10/07/19 17 Rotator Cuff Surgery completed Pam Kilgore [facility] 01/27/2018 11:02:47 10/07/19 14 Knee Surgery completed Molly Pate [facility] 10/10/2016 09:07:15 10/07/19 12 Eye Surgery completed Molly Pate [facility] 10/10/2016 09:07:15 10/07/19 12 Knee Surgery completed Molly Pate [facility] 10/10/2016 09:07:15 10/07/19 11 Hand Surgery completed Molly Pate [facility] 10/10/2016 09:07:15 10/07/19 10 Hysterectomy completed Molly Pate [facility] 10/10/2016 09:07:15 10/07/19 10 Bladder sling completed Molly Pate [facility] 10/10/2016 09:07:15 10/07/18 95 Hand Surgery completed Molly Pate [facility] 10/10/2016 09:07:15 10/07/18 93 Eye Surgery completed Mollyisidro Pate [facility] 10/10/2016 09:07:15 10/07/18 89 Gallbladder Surgery completed Mollyisidro Pate [facility] 10/10/2016 09:07:15 Imaging Results None recorded. Procedure Notes None recorded. Medical Equipment None Reported. Allergies Allergen ID Allergen Name Allergen Category Reaction Reaction Severity Criticality Documentation Date Start Date Code Code System Note Provider Name and Address Organization Details Recorded Time 46173 Product containin g penicilli n (product) medicatio n Not available Not available Not available 08/08/20162010 35723 8001 SNOMED Comme nt: Repor vivi Year: 2010; Not Available [facility] 6 07:37:24 82604 penicilla mine medicatio n Not available Not available Not available 08/08/20162011 7975 RxNorm Sever ity: Unkno wn; [facility] 7 09:12:02 95601 sulfabenz amide Not available Not available Not available Not available 08/08/20162011 86156 RxNorm Sever ity: Unkno wn; [facility] 7 09:12:08 16746 Substance with sulfonami de structure and antibacte rial mechanism of action (substanc e) medicatio n Not available Not available Not available 08/08/20162010 93517 8003 SNOMED Comme nt: Repor vivi Year: 2010; Not Available [facility] 6 07:37:24 98505 latex environme nt,medica tion itching moderate Not available 10/10/2016 80204 [address] [facility] 7 09:07:13 Medications Name Sig Start [...] Updated DateTime 05/28/2017 160.02 cm Sravani Hahn [facility] 05/28/2017 08:33:17 Date Recorded Body height Provider Name an d Address Organization Details Last Updated DateTime 08/06/2017 160.02 cm Jennifer Quintana MD [address], [address], [facility] 08/06/2017 11:30:12 Date Recorded Body height Provider Name an d Address Organization Details Last Updated DateTime 01/27/2018 160.02 cm Pam Kilgore [facility] 01/27/2018 11:02:27 Date Recorded Body height Provider Name an d Address Organization Details Last Updated DateTime 04/28/2018 160.02 cm Pam Kilgore [facility] 04/28/2018 10:51:44 Social History Question Answer Notes LastModified by Organizat ion Details LastModified Time Tobacco Smoking Status Never Smoker Not Available [facility] 08/09/2020 04:06:17 What Is Your Level Of Alcohol Consumption? None [id number] Information not available 08/09/2020 What Is Your Level Of Caffeine Consumption? None [id number] Information not available 08/09/2020 How Much Tobacco Do You Chew? None [id number] Information not available 08/09/2020 Are You Currently Employed? No [id number] Information not available 08/09/2020 Education 2 Year College [email or web address] Informatio n not available 10/10/2016 Which Of Your Hands Is Dominant? Right [id number] Information not available 08/09/2020 Marital Status xuan Informat[employer] n not available 01/27/2018 What Was The Date Of Your Most Recent Tobacco Screening? 04/28/2018 [id number] Information not available 08/09/2020 Sex: Unknown Functional [...] available 2016 08:44:12 Medical History Condition Response Heart Problems Y Anemia Y Arthritis Y Acid Reflux Y Fast Pulse (tachycardia)/Heart murmurs/i rregular pulse Y Sleep Apnea Y High Cholesterol Y Migraines Y Chronic Pain Y Gynecological HistoryNo gynecological history recorded. Obstetrics History GPAL:G 0 P 0 0 0 0 Past Encounters Encounter ID Performer Location Encounter Start Date Encounter Closed Date Diagnosis/Indication Diagnosis SNOMED-CT Code Diagnosis ICD10 Code Diagnosis Note [id number] [facility] [place] MAIN OFFICE [address] [place] [address] 10/10/2016 08:30:52 10/10/2016 09:40:07 Full thickness rotator cuff tear 206171602 M75.122 IMAGING: MRI left shoulder shows a [...] like to proceed. Informed consent was obtained. [id number] Jennifer Quintana MD MAIN OFFICE [address] [facility] [address] [place] [address] 10/15/2016 08:11:52 10/15/2016 09:25:39 Full thickness rotator cuff tear 279639248 M75.122 Impingemen t syndrome of shoulder region 837545130 M75.42 Lumbosacra l radiculopathy 2361827 M54.16 Primary ce ntral sleep apnea 7029785799 101 G47.31 [id number] [facility] [place] MAIN OFFICE [address] [place] [address] 10/24/2016 08:08:01 10/24/2016 08:57:00 History of arthroscopic procedure on shoulder 625425133 Z98.890 IMPRESSION : 2 Weeks s/p left [...] 4 weeks History of major orthopedic surgery 555671208 Z98.890 [id number] Ino Carias MD MAIN OFFICE [address] [place] [address] 11/28/2016 08:08:37 11/28/2016 08:31:35 History of arthroscopic procedure on shoulder 379592254 Z98.890 she is 6 weeks out now doing well she can discontinu e her sling. No active range of motion yet. Continue protocol. Follow-up 6 weeks. [id number] [facility] [place] MAIN OFFICE [address] [place] [address] 01/09/2017 09:18:11 01/09/2017 10:26:53 History of arthroscopic procedure on shoulder 957913366 Z98.890 she is 12 weeks out now and she is doing very well. Recommend that she graduated from physical therapy to a home exercise program. Recommende d that she continue this for about 2 months. At this point she can follow up as needed. Patient was agreeable and all questions were answered today. [id number] Jennifer Quintana MD MAIN OFFICE [address] [place] [address] 01/10/2017 09:34:37 01/10/2017 11:28:59 Arthralgia of the ankle and/or foot 302655559 M25.579 please obtain 3 views of the bilateral ankles and bilateral feet next appointmen t if she is still having pain after the injections . Consider physical therapy. Lumbar radiculopathy 128 031745 M54.16 recommend bilateral S1 nerve blocks. Fibromyalgia 957552337 M 79.7 Low back pain 220195250 M54.5 [id number] Jennifer Quintana MD PAIN CENTER [address] [place] [address] 01/23/2017 13:52:32 01/24/2017 14:45:48 Lumbar radiculopathy 117312656 M54.16 recommend bilateral S1 nerve blocks. [id number] Jennifer Quintana MD MAIN OFFICE [address] [place] [address] 03/12/2017 10:36:03 03/12/2017 11:18:45 Migraine 80705936 G43.909 advised weaning from butalbital as she is able. She has. She failed Topamax. She does not qualify for Botox. Lumbar radiculopathy 128 185813 M54.16 Neck pain 46071653 M54.2 Metatarsalgia 25355775 M 77.40 [id number] Volodymyr Bingham MD MAIN OFFICE [address] [place] [address] 03/21/2017 13:16:21 03/21/2017 14:28:53 Low back pain 509942870 M54.5 Neck pain 96692761 M54.2 Lumbosacra l spondylosis 440025233 M47.817 [id number] Volodymyr Bingham MD MAIN OFFICE [address] [place] [address] 03/28/2017 14:53:55 03/28/2017 15:23:41 Low back pain 165898661 M54.5 Neck pain 67801162 M54.2 Lumbosacra l spondylosis 735492217 M47.817 Cervical spondylosis 387 567443 M47.812 Degenerati ve spondylolisthesis 4180166 M43.19 M43.16 M43.17 [id number] Jennifer Quintana MD MAIN OFFICE [address] [place] [address] 04/02/2017 12:37:04 04/02/2017 13:42:09 Lumbar spondylosis 391714269 M47.896 Lumbar radiculopathy 128 534323 M54.16 [id number] Jennifer Quintana MD PAIN CENTER [address] [place] [address] 04/17/2017 11:59:28 04/18/2017 08:34:06 Lumbosacral spondylosis without myelopathy 84561667 M47.817 [id number] Jennifer Quintana MD PAIN CENTER [address] [place] [address] 05/02/2017 12:30:38 05/02/2017 13:44:03 Low back pain 324054354 M54.5 Neck pain 82973520 M54.2 [id number] Volodymyr Bingham MD MAIN OFFICE [address] [place] [address] 05/28/2017 08:22:27 05/28/2017 09:28:27 Spondylolisthesis 189514060 M43.19 Lumbosacra l spondylosis 704946392 M47.817 Low back pain 883859504 M54.5 Lumbar dis cogenic pain 079939607 M51.26 [id number] Jennifer Quintana MD MAIN OFFICE [address] [place] [address] 08/06/2017 10:58:18 08/06/2017 12:27:27 Long-term drug therapy 154304086 Z79.891 Low back pain 363414488 M54.5 Cervical s pondylosis with radiculopathy 761244675 M47.22 [id number] Jennifer Quintana MD MAIN OFFICE [address] [place] [address] 11/05/2017 10:50:11 11/05/2017 12:05:58 Neck pain 93320208 M54.2 Migraine without aura 56 461854 G43.009 urine drug screen as per protocol. [id number] Jennifer Quintana MD MAIN OFFICE [address] [place] [address] 01/27/2018 10:34:24 01/27/2018 12:02:53 Long-term drug therapy 352244936 Z79.891 Refractory migraine without aura 401189620 G43.719 [id number] Jennifer Quintana MD MAIN OFFICE [address] [place] [address] 04/28/2018 10:32:18 04/28/2018 11:44:58 Neck pain 65062047 M54.2 given slight anterolist hesis of C3 on 4, will recommend follow-up with Dr. Apodaca. Cervical s pondylosis with radiculopathy 417265954 M47.22 Migraine 03942488 G43.90 9 Health Concerns Section Related Observation LastModified by Organization Detai ls LastModified Time None Recorded Concern Status LastModified by Organization Details LastModified Time None Recorded Advance Directives Directive None Recorded Payers Encounter Date Sequence Insurance Name Policy Number Policy Ramirez Covered Member ID Ramirez Member ID Guarantor Name 05/28/2017 1 [place] KAREEM Ulloa Hdz [id number] Laura E Hdz 05/28/2017 2 [place] [employer] [id number] Laura Liala Hdz [id number] Laura E Hdz 08/06/2017 1 [place]EM MASSEY Laura Laila Hdz [id number] Laura E Hdz 08/06/2017 2 [place] [employer] [place] [place] 104 Laura Laila Hdz [id number] Laura E Hdz 11/05/2017 1 [place]AREEM MASSEY Laura Laila Hdz [id number] Laura E Hdz 11/05/2017 2 [place]: 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 Srini Jarquin PA-C [address] [facility],[address], [place], [address], [facility] 06/06/2017 21:36:28 7 text/html Pain Management Follow-UpReported [...] aberrant behavior. Jennifer Quintana MD [address], [place], [address], [facility] 08/06/2017 12:59:59 8 text/html Pain Management Follow-UpReported [...] if possible. Jennifer Quintana MD [address], [address], [facility] 11/05/2017 12:12:15 8 text/html Pt presents for her Botox injection today for migraines. Current pain level 1/10. Medications are helping. Denies recent infection or fever. Jennifer Quintana MD [address], [place], [address], [facility] 01/27/2018 16:14:48 8 text/html Pain Management Follow-UpReported [...] current pain level 10. Jennifer Quintana MD [address] [facility],[address], [place], [address], [facility] 05/04/2018 15:26:40 OBGyn Episode No OBEpisode recorded.
--- OUTSIDE RECORDS SUMMARY | 2024-12-23 10:13 | XMS_ITS | Data Portability ---
Author Organization [place] [facility], [facility] Address [address] [facility] [address] [place] [address] Care Team Providers Care Outside Sales Consultant Name Role Phone [facility] Primary Care Provider Assessment No assessment recorded. Plan of Treatment Reminders Order Date Submit Date Provider Last Modified By Organization Details Last Modified Time Details Appointments None recorded. Lab urinalysis , dipstick 2017 [facility]18 [facility] [address] [facility], [address], [place], [address], 8 16:24:52 Referral None recorded. Procedures facet joint injection, cervical (PROC) - [id number] 2018 019 [email or web address] Not available 9 09:52:02 Surgeries None recorded. Imaging None recorded. Medication Orders None recorded. Patient TargetsNo targets recorded. Patient Instructions Encounter Date Encounter Id Patient Instructions Last Modified By Organization Details Last Modified Time 07/02/2018 [id number] Continue current medications. Routine drug screens. Follow-up [...] this document. Not available 07/02/2018 13:46:50 11/17/2018 [id number] Discussed the option of repeating C4-5 and [...] NG/mL >=5 NONE DETEC VIVI Not Available [facility] [address] [place] [address], [address], 07/09/2018 14:08:31 07/02/20 18 07/02/2018 katerin turat es, QL, scree n, urine barbiturates ur ql cfm >=200 NG/mL >=200 POSIT TIMOTEO Not Available [facility] [address] [place] [address], [place], [address], 07/09/2018 14:08:31 07/02/20 18 07/05/2018 katerin turat es, QL, scree n, urine butalbital ur cfm-mcnc 1380 NG/mL >=200 POSIT TIMOTEO Not Available [facility] [address] [place] [address], [place], [address], 07/09/2018 14:08:31 07/02/20 18 07/02/2018 drug scree n, urine sedative hypnotics ur ql cfm <4 NG/mL >=4 NONE DETEC VIVI Not Available [facility] [address] [place] [address], [address], 07/09/2018 14:08:30 07/02/20 18 07/02/2018 metax alone , QN, urine metaxalone ur ql cfm <50 NG/mL >=50 NONE DETEC VIVI Not Available [facility] [address] [place] [address], [address], 07/09/2018 14:08:30 07/02/20 18 07/02/2018 drug scree n, urine buprenorphin e ur ql cfm <1 NG/mL >=1 NONE DETEC VIVI Not Available [facility] [address] [place] [address], [place], [address], 07/09/2018 14:08:29 07/02/20 18 07/02/2018 drug scree n, urine alcohol metabolites ur ql cfm <200 NG/mL >=200 NONE DETEC VIVI Not Available [facility] [address] [place] [address], [place], [address], 07/09/2018 14:08:29 07/02/20 18 07/02/2018 drug scree n, urine amphetamines ur ql cfm <0 NG/mL >=0 NONE DETEC VIVI Not Available [facility] [address] [place] [address], [place], [address], 07/09/2018 14:08:29 07/02/20 18 07/02/2018 drug scree n, urine tapentadol ur ql cfm <100 NG/mL >=100 NONE DETEC VIVI Not Available [facility] [address] [place] [address], [place], [address], 07/09/2018 14:08:29 07/02/20 18 07/02/2018 drug scree n, urine benzodiaz ur ql cfm <50 NG/mL >=50 NONE DETEC VIVI Not Available [facility] [address] [place] [address], [place], [address], 07/09/2018 14:08:29 07/02/20 18 07/02/2018 drug scree n, urine gabapentinpr egabalin ur ql cfm >=5 mcg/m L >=5 POSIT TIMOTEO Not Available [facility] [address] [place] [address], [address], 07/09/2018 14:08:29 07/02/20 18 07/02/2018 drug scree n, urine bze ur ql cfm <50 NG/mL >=50 NONE DETEC VIVI Not Available [facility] [address] [place] [address], [place], [address], 07/09/2018 14:08:29 07/02/20 18 07/02/2018 drug scree n, urine opiates ur ql cfm <100 NG/mL >=100 NONE DETEC VIVI Not Available [facility] [address] [place] [address], [place], [address], 07/09/2018 14:08:29 07/02/20 18 07/02/2018 drug scree n, urine 6mam ur ql cfm <10 NG/mL >=10 NONE DETEC VIVI Not Available [facility] [address] [place] [address], [place], [address], 07/09/2018 14:08:07/02/20 18 07/02/2018 drug scree n, urine methadone ur ql cfm >=200 NG/mL >=200 POSIT TIMOTEO Not Available [facility] [address] [place] [address], [place], [address], 07/09/2018 14:08:29 07/02/20 18 07/02/2018 drug scree n, urine meperidine ur ql cfm <100 NG/mL >=100 NONE DETEC VIVI Not Available [facility] [address] [place] [address], [place], [address], 07/09/2018 14:08:07/02/20 18 07/02/2018 drug scree n, urine fentanyl+nor fentanyl ur ql cfm <5 NG/mL >=5 NONE DETEC VIVI Not Available [facility] [address] [place] [address], [place], [address], 07/09/2018 14:08:07/02/20 18 07/02/2018 drug scree n, urine carisoprodol +meprob ur ql scn <200 NG/mL >=200 NONE DETEC VIVI Not Available [facility] [address] [place] [address], [place], [address], 07/09/2018 14:08:29 07/02/20 18 07/02/2018 drug scree n, urine tramadol ur ql cfm <100 NG/mL >=100 NONE DETEC VIVI Not Available [facility] [address] [place] [address], [place], [address], 07/09/2018 14:08:29 07/02/20 18 07/02/2018 drug scree n, urine cotinine ur ql cfm <125 NG/mL >=125 NONE DETEC VIVI Not Available [facility] [address] [place] [address], [place], [address], 07/09/2018 14:08:29 07/02/20 18 07/02/2018 drug scree n, urine pH ur 5.4 >= normal NOEMI L Not Available [facility] [address] [place] [address], [place], [address], 07/09/2018 14:08:29 07/02/20 18 07/02/2018 drug scree n, urine creat ur-mcnc 132 mg/dL >=2 normal NOEMI L Not Available [facility] [address] [place] [address], [place], [address], 07/09/2018 14:08:29 07/02/20 18 07/03/2018 drug scree n, urine pregabalin ur cfm-mcnc 106 mcg/m L >=5 POSIT TIMOTEO Not Available [facility] [address] [place] [address], [place], [address], 07/09/2018 14:08:29 07/02/20 18 07/03/2018 drug scree n, urine methadone ur cfm-mcnc 5750 NG/mL >=200 POSIT TIMOTEO Not Available [facility] [address] [place] [address], [place], [address], 07/09/2018 14:08:29 07/02/20 18 07/03/2018 drug scree n, urine EDDP ur cfm-mcnc 33976 NG/mL >=200 POSIT TIMOTEO Not Available [facility] [address] [place] [address], [place], [address], 07/09/2018 14:08:29 07/02/20 18 07/04/2018 drug scree n, urine ethyl glucuronide ur cfm-mcnc <500 NG/mL >=500 NONE DETEC VIVI Not Available [facility] [address] [place] [address], [place], [address], 07/09/2018 14:08:29 07/02/20 18 07/04/2018 drug scree n, urine ethyl sulfate ur cfm-mcnc <200 NG/mL >=200 NONE DETEC VIVI Not Available [facility] [address] [place] [address], [place], [address], 07/09/2018 14:08:29 07/02/20 18 07/02/2018 antid epres sants , quali tativ e, urine sn reuptake inhibitors ur ql >=5 NG/mL >=5 POSIT TIMOTEO Not Available [facility] [address] [place] [address], [place], [address], 07/09/2018 14:08:29 07/02/20 18 07/04/2018 antid epres sants , quali tativ e, urine odv ur cfm-mcnc 33193 NG/mL >=5 POSIT TIMOTEO Not Available [facility] [address] [place] [address], [place], [address], 07/09/2018 14:08:29 07/02/20 18 07/07/2018 antid epres sants , quali tativ e, urine venlafaxine ur cfm-mcnc 60081 NG/mL >=5 POSIT TIMOTEO Not Available [facility] [address] [place] [address], [place], [address], 07/09/2018 14:08:29 07/02/20 18 07/02/2018 drug scree n, urine cathinones synthetic ur ql scn <25 NG/mL >=25 NONE DETEC VIVI Not Available [facility] [address] [place] [address], [place], [address], 07/09/2018 14:08:28 07/02/20 18 07/02/2018 drug scree n, urine cannabinoids synthetic ql scn <2 NG/mL >=2 NONE DETEC VIVI Not Available [facility] [address] [place] [address], [place], [address], 07/09/2018 14:08:28 07/02/20 18 07/02/2018 drug- drug [...] albert de point es.(1 ) Not Available [facility] [address] [place] [address], [place], [address], 07/09/2018 14:08:27 07/02/20 18 07/02/2018 drug- drug inter actio n (ddi) drug-drug interaction profile >=5 NG/mL >=5 POSIT TIMOTEO Not Available [facility] [address] [place] [address], [place], [address], 07/09/2018 14:08:27 07/02/20 18 07/04/2018 drug- drug inter actio n (ddi) O-desmethylv enlafaxine ddi NG/mL >=5 POSIT TIMOTEO Not Available [facility] [address] [place] [address], [place], [address], 07/09/2018 14:08:27 07/02/20 18 07/04/2018 drug- drug inter actio n (ddi) venlafaxine (effexor) ddi NG/mL >=5 POSIT TIMOTEO Not Available [facility] [address] [place] [address], [place], [address], 07/09/2018 14:08:27 07/02/20 18 07/02/2018 drug scree n, urine venlafaxine ur CMP 27988 NG/mL >=5 normal COMPL IANT: Test resul t is consi stent and expec vivi with presc ribed drug. Not Available [facility] [address] [place] [address], [place], [address], 07/09/2018 14:08:27 07/02/20 18 07/02/2018 drug scree n, urine methadone ur CMP 91419 NG/mL >=200 normal COMPL IANT: Test resul t is consi stent and expec vivi with presc ribed drug. Not Available [facility] [address] [place] [address], [place], [address], 07/09/2018 14:08:27 07/02/20 18 07/02/2018 drug scree n, urine butalbital ur CMP 1380 NG/mL >=200 normal COMPL IANT: Test resul t is consi stent and expec vivi with presc ribed drug. Not Available [facility] [address] [place] [address], [address], 07/09/2018 14:08:27 07/02/20 18 07/02/2018 drug scree n, urine pregabalin ur CMP 106 mcg/m L >=5 normal COMPL IANT: Test resul t is consi stent and expec vivi with presc ribed drug. Not Available [facility] [address] [place] [address], [place], [address], 07/09/2018 14:08:27 07/02/20 18 07/02/2018 drug scree n, urine mextaxalone ur CMP <50 NG/mL >=50 abnormal NON-C OMPLI ANT: Test resul t indic ates patie nt may not be takin g drug presc ribed . Not Available [facility] [address] [place] [address], [place], [address], 07/09/2018 14:08:27 07/02/20 18 07/02/2018 drug scree n, urine hydrocodone ur CMP <100 NG/mL >=100 normal PRN - NOT PRESE NT: Test resul t is consi stent and expec vivi with presc ribed drug. Not Available [facility] [address] [place] [address], [place], [address], 07/09/2018 14:08:27 07/02/20 18 07/02/2018 drug scree n, urine zolpidem ur CMP <4 NG/mL >=4 normal PRN - NOT PRESE NT: Test resul t is consi stent and expec vivi with presc ribed drug. Not Available [facility] [address] [facility], [place], [address], 07/09/2018 14:08:27 Result Notes None recorded. Problems Name Problem SNOMED Code Status Onset Date Resolution Date Notes Provider Name and Address Organization Details Recorded Time Long-term drug therapy Active 018 MATTY BECKMAN [address] [place] [address] [address], [place], [address] , [place] [facility] 8 13:45:43 Migraine 65269720 Active 018 MATTY BECKMAN [address] [place] [address] [address], [place], [address] , [place] [facility] 8 13:45:52 Neck pain 86581745 Active 018 MATTY BECKMAN [address] [place] [address] [address], [place], [address] , [place] [facility] 8 13:46:15 Problem Notes None recorded. Procedures Surgical History Date Name Laterality Status Provider Name and Address Organization Details Recorded Time 12/01/19 19 [place] [address] [place] [address] [address], [place], [address], [place] [facility] 12/01/2018 20:04:13 11/24/19 19 EWatson 25g Cervical Facet Injection completed Jennifer Quintana MD [facility] [address] [address], [place], [address], [place] [facility] 11/24/2018 13:09:09 08/27/20 18 [place] [address] [place] [address] [address], [place], [address], [place] [facility] 09/16/2018 16:50:17 06/11/20 18 EWatson 25g Cervical Facet Injection completed Jennifer Quintana MD [address] [address] [address], [place], [address], [place] [facility] 06/11/2018 10:00:33 05/27/20 18 Botox completed Jennifer Quintana MD [address] [place] [address] [address], [place], [address], [place] [facility] 05/28/2018 14:24:07 10/07/19 18 Left Foot completed Salomon Apodaca MD [address] [place] [address] [address], [place], [address], [place] [facility] 05/12/2018 15:01:34 10/07/19 17 Shoulder arthroscopy-left completed Salomon Apodaca MD [address] [place] [address] [address], [place], [address], [place] [facility] 05/12/2018 15:01:34 10/07/19 14 Left Total Knee Arthroplasty completed Salomon Apodaca MD [address] [place] [address] [address], [place], [address], [place] [facility] 05/12/2018 15:01:34 10/07/19 13 Left Hand/Wrist Surgery completed Salomon Apodaca MD [address] [place] [address] [address], [place], [address], [place] [facility] 05/12/2018 15:01:34 10/07/19 13 Right Hand/Wrist Surgery completed Salomon Apodaca MD [address] [place] [address] [address], [place], [address], [place] [facility] 05/12/2018 15:01:34 10/07/19 12 Right Knee Arthroplasty completed Salomon Apodaca MD [address] [place] [address] [address], [place], [address], [place] [facility] 05/12/2018 15:01:34 10/07/19 10 Hysterectomy completed Salomon Apodaca MD [address] [place] [address] [address], [place], [address], [place] [facility] 05/12/2018 15:01:34 10/07/18 92 Other completed Salomon Apodaca MD [address] [place] [address] [address], [place], [address], [place] [facility] 05/12/2018 15:01:34 10/07/18 81 Gallbladder Surgery completed Salomon Apodaca MD [address] [place] [address] [address], [place], [address], [place] [facility] 05/12/2018 15:01:34 Imaging Results None recorded. Procedure Notes None recorded. Medical Equipment None Reported. Allergies Allergen ID Allergen Name Allergen Category Reaction Reaction Severity Criticality Documentation Date Start Date Code Code System Note Provider Name and Address Organization Details Recorded Time 22446 fentanyl medicatio n diarrhea moderate Not available 05/12/2018 4337 RxNorm Not Available Not Available Not Available 08688 latex environme nt,medica tion itching moderate Not available 05/12/2018 00556 91 RxNorm Not Available Not Available Not Available 37891 Substance with sulfonami de structure and antibacte rial mechanism of action (substanc e) medicatio n eye redness moderate Not available 05/12/2018 42031 8003 SNOMED Not Available Not Available Not Available 49509 Product containin g penicilli n (product) medicatio n rash moderate Not available 05/12/2018 72076 8001 SNOMED Not Available Not Available Not [...] Updated DateTime 07/02/2018 160.02 cm Pam Kilgore [place] [facility] 8 09:56:40 Date Recorded Body height Provider Name an d Address Organization Details Last Updated DateTime 08/27/2018 160.02 cm Pam Kilgore [place] [facility] 8 11:13:31 Date Recorded Body height Provider Name an d Address Organization Details Last Updated DateTime 11/17/2018 160.02 cm Summer Matos [place] [facility] 9 13:04:40 Date Recorded Body height Heart rate Systolic blood pressure Diastolic blood pressure Provider Name and Address Organization Details Last Updated DateTime 11/24/2018 160.02 cm 78 /min 125 mm[Hg] 76 mm[Hg] Patricia Chand [place] [facility] 11/24/2018 12:57:48 Social History Question Answer Notes LastModified by Organizat ion Details LastModified Time Tobacco Smoking Status Never Smoker Salomon Apodaca MD [address] [address] [address], [place], [address], [facility] 05/12/2018 [...] History Condition Response Coronary Artery Disease N Other N Anxiety/Depression N Gout N Enlarged Prostate N Blood Transfusion N MRSA N Emphysema N Hernia N COPD N [...] Anemia N Multiple Sclerosis N Heart Attack (NC) N Ulcers N Stomach Ulcers N Diabetes [...] SNOMED-CT Code Diagnosis ICD10 Code Diagnosis Note [id number] Salomon Apodaca MD [facility]- [address] [address] 05/12/2018 14:28:23 05/15/2018 14:40:31 Neck pain 92596351 M54.2 We discussed the nature of the [...] during the next visit. Cervical spondylosis 387 774086 M47.812 Degenerati on of cervical intervertebral disc 10764282 M50.30 [id number] Jennifer Quintana MD [facility] [address] [place] [address] 05/27/2018 14:25:39 05/27/2018 16:05:07 Refractory migraine without aura 728474140 G43.719 [id number] Salomon Apodaca MD [facility] [address] [place] [address] 06/02/2018 08:59:35 06/02/2018 13:19:37 Neck pain 32463819 M54.2 X-ray findings/i nterpretat ion: {{Mild* Mo [...] discussed and described above. Cervical spondylosis 387 008859 M47.812 Degenerati on of cervical intervertebral disc 75561634 M50.30 [id number] Jennifer Quintana MD [facility] [address] [place] [address] 06/11/2018 09:08:20 06/12/2018 12:20:07 Cervical spondylosis without myelopathy 510862211 M47.812 [id number] Jennifer Quintana MD [facility] [address] [place] [address] 07/02/2018 09:47:24 07/02/2018 11:51:45 Long-term drug therapy 898151342 Z79.899 Migraine 06239899 G43.90 9 Neck pain 73293529 M54.2 [id number] Jennifer Quintana MD [facility] [address] [place] [address] 08/27/2018 11:08:46 09/01/2018 15:47:39 Refractory migraine without aura 554866905 G43.719 [id number] Jennifer Quintana MD [facility] [address] [place] [address] 11/17/2018 12:56:36 11/17/2018 13:34:57 Neck pain 46937448 M54.2 Migraine 17156616 G43.90 9 [id number] Jennifer Quintana MD [facility]- [address] [place] [address] 11/24/2018 12:49:46 11/25/2018 16:03:41 Cervical spondylosis 131073591 M47.812 [id number] Jennifer Quintana MD [facility]- [address] [place] [place] [address] 12/01/2018 12:29:59 12/01/2018 13:23:33 Refractory migraine without aura 029786775 G43.719 Health Concerns Section Related Observation LastModified by Organization Detai ls LastModified Time None Recorded Concern Status LastModified by Organization Details LastModified Time None Recorded Advance Directives Directive None Recorded Payers Encounter Date Sequence Insurance Name Policy Number Policy Ramirez Covered Member ID Ramirez Member ID Guarantor Name 07/02/2018 1 [place]ICARE [place]: KAREEM Hdz [id number] Laura Hdz 07/02/2018 2 [place] [employer]EE PROGRAM 104 Laura Hdz [id number] Laura Hdz 08/27/2018 1 MEDICARE [place]: KAREEM Hdz [id number] Laura Hdz 08/27/2018 2 [place] [employer]EE PROGRAM 104 Laura Hdz [id number] Laura Hdz 11/17/2018 1 MEDICARE [place]: GEOVANNYPETEY Hdz [id number] Laura Hdz 11/17/2018 2 [place]: [employer]EE PROGRAM 104 Laura Hdz [id number] Laura Hdz 11/24/2018 1 MEDICARE [place]: KAREEM Hdz [id number] Laura Hdz 11/24/2018 2 [place] [employer]EE PROGRAM 104 Laura Hdz [id number] Laura Hdz 12/01/2018 1 MEDICARE [place]: KAREEM Hdz [id number] Laura Hdz 12/01/2018 2 [place]: [employer] EMPLOYEE PROGRAM 104 Laura Hdz [id number] Laura Hdz Notes Date Note Type Note Provider Name and Address Organization Details Recorded Time 8 text/html Pain Management Follow-UpReported bypatient.Current level of painMild pain: 10/16 to 11/16 Location:neck Outcome of Treatmentshort term relief UDT/SOAP:SOAP: [...] effects or functional issues. Jennifer Quintana MD [address] [address] [address], [place], [address], [facility] 07/02/2018 16:21:18 8 text/html Pt is her for Botox for migraines. no side effect from the previous injection or facial asymmetry. Reports that her headaches are at least 50% better. Continues to have neck pain without radiation. Jennifer Quintana MD [address] [address] [address], [place], [address], [facility] 09/16/2018 16:50:49 9 text/html Pain Management Follow-UpReported bypatient.Current level of painMild pain: 10/16 to 11/16 Location:neck Current Home Exercise Programstrengthen; stretch Outcome [...] medications or functional issues. Jennifer Quintana MD [address], [place], [address], [facility] 11/18/2018 08:49:06 9 text/html Last MRI?-05/31/2018No blood thinners past 7 days?-noNo antibiotics?-noDriver Present?-no Jennifer Quintana MD [facility], [place], [address], [facility] 11/24/2018 13:20:49 9 text/html patient presents today for Botox injection. Her headaches diminish well for 2 months, then slowly go back to 3-4 headaches per week. Denies side effects from Botox, no dry eyes or dysphasia. Continues on pain medication. No recent fevers or infection. Jennifer Quintana MD [address], [place], [address], [facility] 12/01/2018 20:04:41 OBGyn Episode No OBEpisode recorded.
== END 2024-12-23 09:39 | disposition home or self-care (01) ==
LOC: HO.PMC 09:16
PROVIDERS: PCP Internal Medicine; Visit Provider Internal Medicine
DX: M79.18 Myalgia, other site (principal)
CPT/HCPCS: 20553

== ENCOUNTER → 2024-12-23 09:15 | Outpatient (BNVA) | payer MEDICARE, BC, SELFPAY | PROVIDERS: PCP Internal Medicine; Visit Provider Internal Medicine | DX: M79.18 Myalgia, other site (principal) | CPT/HCPCS: 20553 ==

== ENCOUNTER 2025-02-01 10:26 | Outpatient (AMB) | payer MEDICARE, BC, SELFPAY ==
--- NOTE | 2025-02-01 11:14 | AM.OFFWIN_ITS ---
Intake Vital Signs 02/01/25 11:23 Weight 211 lb BP 118/70 Blood Pressure Location Rt brachial Position Sitting Pulse 76 Pulse Source Pulse Oximeter Pulse Oximetry (%) 97 Oxygen Delivery Method Room Air Intake Visit Reasons: EP Eye irritation/itching/allergies Intake Note: Patient here for eye irritation, discharge in morning and started on saturday. Patient Tobacco Use Status: Never used Tobacco Allergies Sulfa (Sulfonamide Antibiotics) [SULFA (SULFONAMIDE ANTIBIOTICS)] Allergy (Severe, Verified 02/01/25 11:24) ANAPHYLAXIS Penicillins [PENICILLINS] Allergy (Mild, Verified 02/01/25 11:24) RASH latex Adverse Reaction (Severe, Verified 02/01/25 11:24) Rash doxycycline Adverse Reaction (Mild, Verified 02/01/25 11:24) Abdominal Pain Do you need a note to return to daycare/school/sports/work: No HPI HPI Comments History of Present Illness Details History of Present Illness - The patient is a 69-year-old female pr esenting with both eye irritation and suspected conjunctivitis. - Eye symptoms such as redness, puffines s, and morning crustiness with green- yellow discharge began on the previous Saturday. - Has a chronic history of seasonal clement rgies, with exacerbations in spring which have turned into bacterial conjuntivitis in the past. - Allergic conjunctivitis episodes are r ecurrent, with severe itchiness prompting excessive eye rubbing, particularly last year. - Previous use of Pataday drops was unsu ccessful, compounded by arthritis- related difficulty in administering the drops. - Patient denied visual disturbance or e ye pain, despite persistent allergy sy mptoms. - Current allergy management includes Fl onase, an allergy pill, and sporadic Benadryl; however, efficacy is limited. - Past prescription of albuterol for all ergies needs renewal due to expiration. - Engages in non-pharmacological relief like cold compresses, though overall discomfort from symptoms persists. Physical Exam General: Cooperative, healthy appearing, comfortable, no acute distress and well developed Orientation: Patient oriented x3 Limitations: No limitations Head: Normal to inspection Ears: Hearing grossly normal bilaterally Nose: Normal External nose present Face and sinus: Normal facial exam Eyes: Appearance abnormal, slight edema on bilateral eyelids, no discharge noted, slight injection bilat Neck: Normal visual inspection and Yes full ROM Respiratory: Normal respiratory effort and able to speak in complete sentences. Skin: No rashes or lesions noted Neuro: Patient oriented x3 Extremities: Normal to inspection [facility] Medical History (Updated 02/01/25 @ 12:01 by Noemi Joy PA-C) Degenerative joint disease of shoulder, right Osteoarthritis Arthritis Back pain Celiac sprue GERD (gastroesophageal reflux disease) Anxiety Numbness Sepsis Sleep apnea Sacroiliac dysfunction Migraine Burn injury Sinusitis chronic, frontal Osteopenia Obesity (BMI 30-39.9) Major depression, recurrent Insomnia Primary osteoarthritis Urinary frequency Mitral valve prolapse Allergic rhinitis Gastritis Pure hypercholesterolemia Restless leg syndrome Cervicalgia Lumbar degenerative disc disease Fibromyalgia Surgical History History of lumbar spinal fusion History of bilateral knee arthroplasty Hx of eye surgery History of cataract surgery History of carpal tunnel release History of bunionectomy S/P GINGER-BSO (total abdominal hysterectomy and bilateral salpingo-oophorectomy) History of repair of rotator cuff History of arthroscopy of both knees Hx of cholecystectomy Hx of endoscopy History of colonoscopy Family History Father History of cancer Mother History of cancer History of high blood pressure Hx of diabetes mellitus Social History Household Members: Significant Other Household Members Other:: DAUGHTER AND HER FAMILY Housing: House Are you a primary adult care manager to a significant other at home: No Do you presently have visiting nurse or other home services: No Alcohol intake: current Alcohol intake frequency: a few times a month Patient Tobacco Use Status: Never used Tobacco Tobacco use type: Cigarette e-Cigarette/Vaping Use: Never Used Second Hand Smoke Exposure: Yes service: No Current occupational status: retired Cognitive needs: No Hearing needs: No Vision needs: Yes Review of Systems Const All systems reviewed & are unremarkable except as noted in HPI and below Physical Exam Vital Signs: Last Vital Signs Pulse 76 02/01/25 11:23 BP 118/70 02/01/25 11:23 Pulse Ox 97 02/01/25 11:23 Oxygen Delivery Method Room Air 02/01/25 11:23 Assessment & Plan Assessment & Plan (1) Bacterial conjunctivitis of both eyes: Code(s): H10.9 - Unspecified conjunctivitis; B96.89 - Other specified bacterial agents as the cause of diseases classified elsewhere Plan: Prescriptions for erythromycin ointment and Pataday drops were provided to manage eye symptoms. The erythromycin ointment aims to treat any bacterial component by applying it four times daily in both eyes. A prescription for Pataday was also sent to handle allergic conjunctivitis. The patient's previous albuterol prescription was renewed for continued allergy relief. Current management with Flonase and antihistamines was advised, supplemented by Pepcid as an H2 aryan for additional histamine control. Patient was informed and verbally consented to the use of an ambient scribe for clinic note documentation during this visit. Medications: New olopatadine 0.7% (Pataday Once Daily Relief) 1 drp ophthalmic (eye) Q24H PRN 5 mL 0RF itching erythromycin Apply to each eye 4 times a day while awake 0.5 inches ophthalmic (eye) QID 7 grams 0RF albuterol sulfate 90 mcg/actuation 2 puffs inhalation Q6H PRN 8.5 grams 0RF shortness of breath or wheezing or cough Discontinued albuterol sulfate 90 mcg/actuation (Ventolin HFA) Discontinued Reason: Doctor's Order 2 puffs inhalation Q6H 30 days PRN 8.5 grams 1RF shortness of breath or wheezing Coding Level of Care Code Est Pt Level 3 (94969) Diagnoses Bacterial conjunctivitis of both eyes H10.9; B96.89
[2025-02-01 11:23] VITALS: BP 118/70; PULSE 76; O2SAT 97
--- OUTSIDE RECORDS SUMMARY | 2025-02-01 12:13 | XMS_ITS | Clinical Summary ---
Author Organization [facility] Facility Address [address] [place] [id number] Care Team Providers Care Credit Control Officer Name Role Phone Unavailable Primary Care Provider [...] Colorectal Cancer Screening: Sigmoidoscopy 2006 Pneumococcal Vaccine: 50+ Ye ars (1 of 1 - PCV) 2007 Influenza Vaccine (Season Ended) 2025 Hepatitis B Vaccine Aged Out No longe r eligible based on patient's age to complete this topic Insurance [facility] ([id number]) Medicare
--- OUTSIDE RECORDS SUMMARY | 2025-02-01 12:13 | XMS_ITS | Clinical Summary ---
Author Organization [facility] Address [address] [place] [address] Phone Care Team Providers Care Kitchen Chef Name Role Phone Osmany Browning MD Primary [...] 2:30 PM EST Consult Orthopedic Surgery - [address] [place] [address] Marixa Emery MD Arthritis of [...] 50+ Years Completed 01/30/2023, 06/28/2020 RSV Immunization Adult Patients Completed 11/22/2023 COVID-19 Vaccine Completed 08/06/2024, , [...] age to complete this topic Meningococcal B Vaccine Aged Out No l onger eligible based on patient's age to complete [...] t from Last 3 Months Insurance MEDICARE [facility] Care Teams Kitchen Chef Relationship Specialty Start Date End Date Osmany Browning MD [address] [place] [address] [address] PCP - General Internal Medicine 12/08/24
--- OUTSIDE RECORDS SUMMARY | 2025-02-01 12:14 | XMS_ITS | Data Portability ---
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 Plan of Treatment Reminders Order Date Submit Date Provider Last Modified By Organization Details Last Modified Time Details Appointments None recorded. Lab urinalysis , dipstick 2017 018 [facility] [address] [facility], [address], [place], [address], 8 16:24:52 Referral None recorded. Procedures facet joint injection, cervical (PROC) - [id number] 2018 019 [email or web address] Not available 9 09:52:02 Surgeries None recorded. Imaging None recorded. Medication Orders None recorded. Patient TargetsNo targets recorded. Patient Instructions Encounter Date Encounter Id Patient Instructions Last Modified By Organization Details Last Modified Time 07/02/2018 [id number] Continue current medications. Routine drug screens. Follow-up [...] this document. Not available 07/02/2018 13:46:50 11/17/2018 [id number] Discussed the option of repeating C4-5 and [...] NG/mL >=5 NONE DETEC VIVI Not Available [facility] [address] [place] [address], [address], 07/09/2018 14:08:31 07/02/20 18 07/02/2018 katerin turat es, QL, scree n, urine barbiturates ur ql cfm >=200 NG/mL >=200 POSIT TIMOTEO Not Available [facility] [address] [place] [address], [place], [address], 07/09/2018 14:08:31 07/02/20 18 07/05/2018 katerin turat es, QL, scree n, urine butalbital ur cfm-mcnc 1380 NG/mL >=200 POSIT TIMOTEO Not Available [facility] [address] [place] [address], [place], [address], 07/09/2018 14:08:31 07/02/20 18 07/02/2018 drug scree n, urine sedative hypnotics ur ql cfm <4 NG/mL >=4 NONE DETEC VIVI Not Available [facility] [address] [place] [address], [address], 07/09/2018 14:08:30 07/02/20 18 07/02/2018 metax alone , QN, urine metaxalone ur ql cfm <50 NG/mL >=50 NONE DETEC VIVI Not Available [facility] [address] [place] [address], [address], 07/09/2018 14:08:30 07/02/20 18 07/02/2018 drug scree n, urine buprenorphin e ur ql cfm <1 NG/mL >=1 NONE DETEC VIVI Not Available [facility] [address] [place] [address], [place], [address], 07/09/2018 14:08:29 07/02/20 18 07/02/2018 drug scree n, urine alcohol metabolites ur ql cfm <200 NG/mL >=200 NONE DETEC VIVI Not Available [facility] [address] [place] [address], [place], [address], 07/09/2018 14:08:29 07/02/20 18 07/02/2018 drug scree n, urine amphetamines ur ql cfm <0 NG/mL >=0 NONE DETEC VIVI Not Available [facility] [address] [place] [address], [place], [address], 07/09/2018 14:08:29 07/02/20 18 07/02/2018 drug scree n, urine tapentadol ur ql cfm <100 NG/mL >=100 NONE DETEC VIVI Not Available [facility] [address] [place] [address], [place], [address], 07/09/2018 14:08:29 07/02/20 18 07/02/2018 drug scree n, urine benzodiaz ur ql cfm <50 NG/mL >=50 NONE DETEC VIVI Not Available [facility] [address] [place] [address], [place], [address], 07/09/2018 14:08:29 07/02/20 18 07/02/2018 drug scree n, urine gabapentinpr egabalin ur ql cfm >=5 mcg/m L >=5 POSIT TIMOTEO Not Available [facility] [address] [place] [address], [address], 07/09/2018 14:08:29 07/02/20 18 07/02/2018 drug scree n, urine bze ur ql cfm <50 NG/mL >=50 NONE DETEC VIVI Not Available [facility] [address] [place] [address], [place], [address], 07/09/2018 14:08:29 07/02/20 18 07/02/2018 drug scree n, urine opiates ur ql cfm <100 NG/mL >=100 NONE DETEC VIVI Not Available [facility] [address] [place] [address], [place], [address], 07/09/2018 14:08:29 07/02/20 18 07/02/2018 drug scree n, urine 6mam ur ql cfm <10 NG/mL >=10 NONE DETEC VIVI Not Available [facility] [address] [place] [address], [place], [address], 07/09/2018 14:08:07/02/20 18 07/02/2018 drug scree n, urine methadone ur ql cfm >=200 NG/mL >=200 POSIT TIMOTEO Not Available [facility] [address] [place] [address], [place], [address], 07/09/2018 14:08:29 07/02/20 18 07/02/2018 drug scree n, urine meperidine ur ql cfm <100 NG/mL >=100 NONE DETEC VIVI Not Available [facility] [address] [place] [address], [place], [address], 07/09/2018 14:08:07/02/20 18 07/02/2018 drug scree n, urine fentanyl+nor fentanyl ur ql cfm <5 NG/mL >=5 NONE DETEC VIVI Not Available [facility] [address] [place] [address], [place], [address], 07/09/2018 14:08:07/02/20 18 07/02/2018 drug scree n, urine carisoprodol +meprob ur ql scn <200 NG/mL >=200 NONE DETEC VIVI Not Available [facility] [address] [place] [address], [place], [address], 07/09/2018 14:08:29 07/02/20 18 07/02/2018 drug scree n, urine tramadol ur ql cfm <100 NG/mL >=100 NONE DETEC VIVI Not Available [facility] [address] [place] [address], [place], [address], 07/09/2018 14:08:29 07/02/20 18 07/02/2018 drug scree n, urine cotinine ur ql cfm <125 NG/mL >=125 NONE DETEC VIVI Not Available [facility] [address] [place] [address], [place], [address], 07/09/2018 14:08:29 07/02/20 18 07/02/2018 drug scree n, urine pH ur 5.4 >= normal NOEMI L Not Available [facility] [address] [place] [address], [place], [address], 07/09/2018 14:08:29 07/02/20 18 07/02/2018 drug scree n, urine creat ur-mcnc 132 mg/dL >=2 normal NOEMI L Not Available [facility] [address] [place] [address], [place], [address], 07/09/2018 14:08:29 07/02/20 18 07/03/2018 drug scree n, urine pregabalin ur cfm-mcnc 106 mcg/m L >=5 POSIT TIMOTEO Not Available [facility] [address] [place] [address], [place], [address], 07/09/2018 14:08:29 07/02/20 18 07/03/2018 drug scree n, urine methadone ur cfm-mcnc 5750 NG/mL >=200 POSIT TIMOTEO Not Available [facility] [address] [place] [address], [place], [address], 07/09/2018 14:08:29 07/02/20 18 07/03/2018 drug scree n, urine EDDP ur cfm-mcnc 57482 NG/mL >=200 POSIT TIMOTEO Not Available [facility] [address] [place] [address], [place], [address], 07/09/2018 14:08:29 07/02/20 18 07/04/2018 drug scree n, urine ethyl glucuronide ur cfm-mcnc <500 NG/mL >=500 NONE DETEC VIVI Not Available [facility] [address] [place] [address], [place], [address], 07/09/2018 14:08:29 07/02/20 18 07/04/2018 drug scree n, urine ethyl sulfate ur cfm-mcnc <200 NG/mL >=200 NONE DETEC VIVI Not Available [facility] [address] [place] [address], [place], [address], 07/09/2018 14:08:29 07/02/20 18 07/02/2018 antid epres sants , quali tativ e, urine sn reuptake inhibitors ur ql >=5 NG/mL >=5 POSIT TIMOTEO Not Available [facility] [address] [place] [address], [place], [address], 07/09/2018 14:08:29 07/02/20 18 07/04/2018 antid epres sants , quali tativ e, urine odv ur cfm-mcnc 00034 NG/mL >=5 POSIT TIMOTEO Not Available [facility] [address] [place] [address], [place], [address], 07/09/2018 14:08:29 07/02/20 18 07/07/2018 antid epres sants , quali tativ e, urine venlafaxine ur cfm-mcnc 91232 NG/mL >=5 POSIT TIMOTEO Not Available [facility] [address] [place] [address], [place], [address], 07/09/2018 14:08:29 07/02/20 18 07/02/2018 drug scree n, urine cathinones synthetic ur ql scn <25 NG/mL >=25 NONE DETEC VIVI Not Available [facility] [address] [place] [address], [place], [address], 07/09/2018 14:08:28 07/02/20 18 07/02/2018 drug scree n, urine cannabinoids synthetic ql scn <2 NG/mL >=2 NONE DETEC VIVI Not Available [facility] [address] [place] [address], [place], [address], 07/09/2018 14:08:28 07/02/20 18 07/02/2018 drug- drug [...] albert de point es.(1 ) Not Available [facility] [address] [place] [address], [place], [address], 07/09/2018 14:08:27 07/02/20 18 07/02/2018 drug- drug inter actio n (ddi) drug-drug interaction profile >=5 NG/mL >=5 POSIT TIMOTEO Not Available [facility] [address] [place] [address], [place], [address], 07/09/2018 14:08:27 07/02/20 18 07/04/2018 drug- drug inter actio n (ddi) O-desmethylv enlafaxine ddi NG/mL >=5 POSIT TIMOTEO Not Available [facility] [address] [place] [address], [place], [address], 07/09/2018 14:08:27 07/02/20 18 07/04/2018 drug- drug inter actio n (ddi) venlafaxine (effexor) ddi NG/mL >=5 POSIT TIMOTEO Not Available [facility] [address] [place] [address], [place], [address], 07/09/2018 14:08:27 07/02/20 18 07/02/2018 drug scree n, urine venlafaxine ur CMP 23223 NG/mL >=5 normal COMPL IANT: Test resul t is consi stent and expec vivi with presc ribed drug. Not Available [facility] [address] [place] [address], [place], [address], 07/09/2018 14:08:27 07/02/20 18 07/02/2018 drug scree n, urine methadone ur CMP 30513 NG/mL >=200 normal COMPL IANT: Test resul t is consi stent and expec vivi with presc ribed drug. Not Available [facility] [address] [place] [address], [place], [address], 07/09/2018 14:08:27 07/02/20 18 07/02/2018 drug scree n, urine butalbital ur CMP 1380 NG/mL >=200 normal COMPL IANT: Test resul t is consi stent and expec vivi with presc ribed drug. Not Available [facility] [address] [place] [address], [address], 07/09/2018 14:08:27 07/02/20 18 07/02/2018 drug scree n, urine pregabalin ur CMP 106 mcg/m L >=5 normal COMPL IANT: Test resul t is consi stent and expec vivi with presc ribed drug. Not Available [facility] [address] [place] [address], [place], [address], 07/09/2018 14:08:27 07/02/20 18 07/02/2018 drug scree n, urine mextaxalone ur CMP <50 NG/mL >=50 abnormal NON-C OMPLI ANT: Test resul t indic ates patie nt may not be takin g drug presc ribed . Not Available [facility] [address] [place] [address], [place], [address], 07/09/2018 14:08:27 07/02/20 18 07/02/2018 drug scree n, urine hydrocodone ur CMP <100 NG/mL >=100 normal PRN - NOT PRESE NT: Test resul t is consi stent and expec vivi with presc ribed drug. Not Available [facility] [address] [place] [address], [place], [address], 07/09/2018 14:08:27 07/02/20 18 07/02/2018 drug scree n, urine zolpidem ur CMP <4 NG/mL >=4 normal PRN - NOT PRESE NT: Test resul t is consi stent and expec vivi with presc ribed drug. Not Available [facility] [address] [facility], [place], [address], 07/09/2018 14:08:27 Result Notes None recorded. Problems Name Problem SNOMED Code Status Onset Date Resolution Date Notes Provider Name and Address Organization Details Recorded Time Long-term drug therapy Active 018 MATTY BECKMAN [address] [place] [address] [address], [place], [address] , [place] [facility] 8 13:45:43 Migraine 62643225 Active 018 MATTY BECKMAN [address] [place] [address] [address], [place], [address] , [place] [facility] 8 13:45:52 Neck pain 70777430 Active 018 MATTY BECKMAN [address] [place] [address] [address], [place], [address] , [place] [facility] 8 13:46:15 Problem Notes None recorded. Procedures Surgical History Date Name Laterality Status Provider Name and Address Organization Details Recorded Time 12/01/19 19 [place] [address] [place] [address] [address], [place], [address], [place] [facility] 12/01/2018 20:04:13 11/24/19 19 EWatson 25g Cervical Facet Injection completed Jennifer Quintana MD [facility] [address] [address], [place], [address], [place] [facility] 11/24/2018 13:09:09 08/27/20 18 [place] [address] [place] [address] [address], [place], [address], [place] [facility] 09/16/2018 16:50:17 06/11/20 18 EWatson 25g Cervical Facet Injection completed Jennifer Quintana MD [address] [address] [address], [place], [address], [place] [facility] 06/11/2018 10:00:33 05/27/20 18 Botox completed Jennifer Quintana MD [address] [place] [address] [address], [place], [address], [place] [facility] 05/28/2018 14:24:07 10/07/19 18 Left Foot completed Salomon Apodaca MD [address] [place] [address] [address], [place], [address], [place] [facility] 05/12/2018 15:01:34 10/07/19 17 Shoulder arthroscopy-left completed Salomon Apodaca MD [address] [place] [address] [address], [place], [address], [place] [facility] 05/12/2018 15:01:34 10/07/19 14 Left Total Knee Arthroplasty completed Salomon Apodaca MD [address] [place] [address] [address], [place], [address], [place] [facility] 05/12/2018 15:01:34 10/07/19 13 Left Hand/Wrist Surgery completed Salomon Apodaca MD [address] [place] [address] [address], [place], [address], [place] [facility] 05/12/2018 15:01:34 10/07/19 13 Right Hand/Wrist Surgery completed Salomon Apodaca MD [address] [place] [address] [address], [place], [address], [place] [facility] 05/12/2018 15:01:34 10/07/19 12 Right Knee Arthroplasty completed Salomon Apodaca MD [address] [place] [address] [address], [place], [address], [place] [facility] 05/12/2018 15:01:34 10/07/19 10 Hysterectomy completed Salomon Apodaca MD [address] [place] [address] [address], [place], [address], [place] [facility] 05/12/2018 15:01:34 10/07/18 92 Other completed Salomon Apodaca MD [address] [place] [address] [address], [place], [address], [place] [facility] 05/12/2018 15:01:34 10/07/18 81 Gallbladder Surgery completed Salomon Apodaca MD [address] [place] [address] [address], [place], [address], [place] [facility] 05/12/2018 15:01:34 Imaging Results None recorded. Procedure Notes None recorded. Medical Equipment None Reported. Allergies Allergen ID Allergen Name Allergen Category Reaction Reaction Severity Criticality Documentation Date Start Date Code Code System Note Provider Name and Address Organization Details Recorded Time 67496 fentanyl medicatio n diarrhea moderate Not available 05/12/2018 4337 RxNorm Not Available Not Available Not Available 25217 latex environme nt,medica tion itching moderate Not available 05/12/2018 67222 91 RxNorm Not Available Not Available Not Available 64959 Substance with sulfonami de structure and antibacte rial mechanism of action (substanc e) medicatio n eye redness moderate Not available 05/12/2018 57818 8003 SNOMED Not Available Not Available Not Available 85267 Product containin g penicilli n (product) medicatio n rash moderate Not available 05/12/2018 62364 8001 SNOMED Not Available Not Available Not [...] Updated DateTime 07/02/2018 160.02 cm Pam Kilgore [place] [facility] 8 09:56:40 Date Recorded Body height Provider Name an d Address Organization Details Last Updated DateTime 08/27/2018 160.02 cm Pam Kilgore [place] [facility] 8 11:13:31 Date Recorded Body height Provider Name an d Address Organization Details Last Updated DateTime 11/17/2018 160.02 cm Summer Matos [place] [facility] 9 13:04:40 Date Recorded Body height Heart rate Systolic blood pressure Diastolic blood pressure Provider Name and Address Organization Details Last Updated DateTime 11/24/2018 160.02 cm 78 /min 125 mm[Hg] 76 mm[Hg] Patricia Chand [place] [facility] 11/24/2018 12:57:48 Social History Question Answer Notes LastModified by Organizat ion Details LastModified Time Tobacco Smoking Status Never Smoker Salomon Apodaca MD [address] [address] [address], [place], [address], [facility] 05/12/2018 15:01:33 [...] Response Coronary Artery Disease N Other N Gout N Anxiety/Depression N Enlarged Prostate N MRSA N Blood [...] Problems N Anemia N Multiple Sclerosis N Ulcers N Heart Attack (IN) N Stomach Ulcers N Diabetes N Bleeding [...] SNOMED-CT Code Diagnosis ICD10 Code Diagnosis Note [id number] Salomon Apodaca MD [facility] [address] [address] 05/12/2018 14:28:23 05/15/2018 14:40:31 Neck pain 22030663 M54.2 We discussed the nature of the [...] during the next visit. Cervical spondylosis 387 802073 M47.812 Degenerati on of cervical intervertebral disc 47205394 M50.30 [id number] Jennifer Quintana MD [facility] [address] [place] [address] 05/27/2018 14:25:39 05/27/2018 16:05:07 Refractory migraine without aura 942955308 G43.719 [id number] Salomon Apodaca MD [facility] [address] [place] [address] 06/02/2018 08:59:35 06/02/2018 13:19:37 Neck pain 09359215 M54.2 X-ray findings/i nterpretat ion: {{Mild* Mo [...] discussed and described above. Cervical spondylosis 387 037014 M47.812 Degenerati on of cervical intervertebral disc 47536360 M50.30 [id number] Jennifer Quintana MD [facility] [address] [place] [address] 06/11/2018 09:08:20 06/12/2018 12:20:07 Cervical spondylosis without myelopathy 971928784 M47.812 [id number] Jennifer Quintana MD [facility] [address] [place] [address] 07/02/2018 09:47:24 07/02/2018 11:51:45 Long-term drug therapy 789915824 Z79.899 Migraine 87202221 G43.90 9 Neck pain 51164768 M54.2 [id number] Jennifer Quintana MD [facility] [address] [place] [address] 08/27/2018 11:08:46 09/01/2018 15:47:39 Refractory migraine without aura 775408212 G43.719 [id number] Jennifer Quintana MD [facility] [address] [place] [address] 11/17/2018 12:56:36 11/17/2018 13:34:57 Neck pain 69087374 M54.2 Migraine 54468400 G43.90 9 [id number] Jennifer Quintana MD [facility] [address] [place] [address] 11/24/2018 12:49:46 11/25/2018 16:03:41 Cervical spondylosis 437833899 M47.812 [id number] Jennifer Quintana MD [facility]- [address] [place] [place] [address] 12/01/2018 12:29:59 12/01/2018 13:23:33 Refractory migraine without aura 406265574 G43.719 Health Concerns Section Related Observation LastModified by Organization Detai ls LastModified Time None Recorded Concern Status LastModified by Organization Details LastModified Time None Recorded Advance Directives Directive None Recorded Payers Encounter Date Sequence Insurance Name Policy Number Policy Ramirez Covered Member ID Ramirez Member ID Guarantor Name 07/02/2018 1 [place] KAREEM Hdz [id number] Laura Hdz 07/02/2018 2 [place] [employer] 104 Laura Hdz [id number] Laura Hdz 08/27/2018 1 [place]AREEM Hdz [id number] Laura Hdz 08/27/2018 2 [place] [employer] 104 Laura dHz [id number] Laura Hdz 11/17/2018 1 [place]: GEOVANNYPETEY Hdz [id number] Laura Hdz 11/17/2018 2 [place] [employer]GRAM 104 Laura Hdz [id number] Laura Hdz 11/24/2018 1 [place]AREEM Hdz [id number] Laura Hdz 11/24/2018 2 [place] [employer]GRAM 104 Laura Hdz [id number] Laura Hdz 12/01/2018 1 [place]AREEM Hdz [id number] Laura Hdz 12/01/2018 2 [place]: [employer]EE PROGRAM 104 Laura Hdz [id number] Laura Hdz Notes Date Note Type Note [...] or functional issues. Jennifer Quintana MD [address] [address] [address], [place], [address], [facility] - [facility] 07/02/2018 16:21:18 8 text/html Pt is her for Botox for migraines. no side effect from the previous injection or facial asymmetry. Reports that her headaches are at least 50% better. Continues to have neck pain without radiation. Jennifer Quintana MD [address] [address] [address], [place], [address], [facility] - [facility] 09/16/2018 16:50:49 [...] or functional issues. Jennifer Quintana MD [address], [place], [address], [facility] - [facility] 11/18/2018 08:49:06 9 text/html Last MRI?-05/31/2018No blood thinners past 7 days?-noNo antibiotics?-noDriver Present?-no Jennifer Quintana MD [facility] [address], [place], [address], [facility] - [facility] 11/24/2018 13:20:49 9 text/html patient presents today for Botox injection. Her headaches diminish well for 2 months, then slowly go back to 3-4 headaches per week. Denies side effects from Botox, no dry eyes or dysphasia. Continues on pain medication. No recent fevers or infection. Jennifer Quintana MD [address], [place], [address], [facility] - [facility] 12/01/2018 20:04:41 OBGyn Episode No OBEpisode recorded.
--- OUTSIDE RECORDS SUMMARY | 2025-02-01 12:14 | XMS_ITS | Data Portability ---
Author Organization [facility], MAIN OFFICE Address [address] [place] [address] Care Team Providers Care Technical Supervisor Name Role Phone ROSIO MARES Primary Care Provider Assessment Encounter Date Assessment Date Assessment LastModified by Organization Details LastModified Time 05/28/2017 05/28/2017 Dr Bingham in to s ee the patient. SCANS: Lumbar MRI (done at [facility] on 03/26/2017) findings/interpreta tion: Multilevel spondylosis. [...] screen, urine 2017 018 Main Office, [address], [address], [place], [address], 8 16:36:58 drug screen, urine 2016 017 [facility] Main Office, [address], [place], [address], 7 14:46:03 Referral general surgeon referral - possible ALIF L4/5 L5/S1 please call patient with appt 2016 017 [email or web address] Duran Paris MD, [address], [place], [address], 7 21:27:09 Procedures None recorded. Surgeries None recorded. Imaging XR, cervical spine, 4 or 5 view 2017 018 [email or web address] Main Office, [address], [address], [place], [address], 8 08:25:32 Medication Orders hydrocodone 10 mg-acetamin ophen 325 mg tablet 2016 017 [email or web address] Not available 7 12:54:37 Patient Targets Encounter Date Encounter Id Patient Goals Patient Target Last Modified By Organization Details Last Modified Time [facility] record checked.Low risk UDTBased on the [...] marijuana, meperidine, methadone, opiates, tapentadol, and tramadol. [email or web address] Not available 08/06/2017 12:59:51 we'll continue current medications.D ROSARIO record checked.Recom mend Botox for migraines. Not available 11/05/2017 12:11:16 [facility] website checked.Naresh nue hydrocodone, Lidoderm patches, Fioricet, Arthrotec, Botox her headaches. [email or web address] Not available 05/04/2018 15:26:02 Patient Instructions Encounter Date Encounter Id Patient Instructions Last Modified By Organization Details Last Modified Time 11/05/2017 [id number] neck pain: care instructions [email or web address] Not available 11/05/2017 12:12:08 04/28/2018 [id number] neck pain: care instructions [email or web address] Not available 04/29/2018 19:29:13 Reason for Referral General Surgeon Referral for Spondylolisthesis consideration of ALIF possible ALIF L4/5 L5/S1 please call patient with appt Referring Physician: Volodymyr Bingham, Orthopedic Surgery, Encounter Date: 05/28/2017 Results Created Date Observation Date Name Description Value Unit Range Abnormal Flag Note LastModifiedBy Organization Detail LastModifiedTime 08/06/20 17 08/06/2017 drug scree n, urine venlafaxine ur CMP 25364 NG/mL >=5 normal COMPL IANT: Test resul t is consi stent and expec vivi with presc ribed drug. Not Available [facility] [address] [place] [address], [address], 08/12/2017 16:12:18 08/06/20 17 08/06/2017 drug scree n, urine methadone ur CMP 93783 NG/mL >=200 normal COMPL IANT: Test resul t is consi stent and expec vivi with presc ribed drug. Not Available [facility] [address] [place] [address], [id number], 08/12/2017 16:12:18 08/06/20 17 08/06/2017 drug scree n, urine zolpidem ur CMP 8050 NG/mL >=4 normal COMPL IANT: Test resul t is consi stent and expec vivi with presc ribed drug. Not Available [facility] [address] [facility], [place], [address], 08/12/2017 16:12:18 08/06/20 17 08/06/2017 drug scree n, urine pregabalin ur CMP 115 mcg/m L >=5 normal COMPL IANT: Test resul t is consi stent and expec vivi with presc ribed drug. Not Available [facility] [address] [place], [address], 08/12/2017 16:12:18 08/06/20 17 08/06/2017 drug scree n, urine butalbital ur CMP 1990 NG/mL >=200 normal COMPL IANT: Test resul t is consi stent and expec vivi with presc ribed drug. Not Available [facility] [address] [place] [address], [place], [address], 08/12/2017 16:12:18 08/06/20 17 08/06/2017 drug scree n, urine cathinones synthetic ur ql scn <25 NG/mL >=25 NONE DETEC VIVI Not Available [facility] [address] [place] [address], [place], [address], 08/12/2017 16:12:18 08/06/20 17 08/06/2017 drug scree n, urine buprenorphin e ur ql cfm <1 NG/mL >=1 NONE DETEC VIVI Not Available [facility] [address] [place] [address], [place], [address], 08/12/2017 16:12:18 08/06/20 17 08/06/2017 drug scree n, urine alcohol metabolites ur ql cfm <200 NG/mL >=200 NONE DETEC VIVI Not Available [facility] [address] [place] [address], [place], [address], 08/12/2017 16:12:18 08/06/20 17 08/06/2017 drug scree n, urine ethyl glucuronide ur cfm-mcnc <500 NG/mL >=500 NONE DETEC VIVI Not Available [facility] [address] [place] [address], [place], [address], 08/12/2017 16:12:18 08/06/20 17 08/06/2017 drug scree n, urine ethyl sulfate ur cfm-mcnc <200 NG/mL >=200 NONE DETEC VIVI Not Available [facility] [address] [place] [address], [place], [address], 08/12/2017 16:12:18 08/06/20 17 08/06/2017 drug scree n, urine tapentadol ur ql cfm <100 NG/mL >=100 NONE DETEC VIVI Not Available [facility] [address] [place] [address], [place], [address], 08/12/2017 16:12:18 08/06/20 17 08/06/2017 drug scree n, urine amphetamines ur ql cfm <250 NG/mL >=250 NONE DETEC VIVI Not Available [facility] [address] [place] [address], [place], [address], 08/12/2017 16:12:18 08/06/20 17 08/06/2017 drug scree n, urine barbiturates ur ql cfm >=200 NG/mL >=200 POSIT TIMOTEO Not Available [facility] [address] [place] [address], [place], [address], 08/12/2017 16:12:18 08/06/20 17 08/06/2017 drug scree n, urine butalbital ur cfm-mcnc 1990 NG/mL >=200 POSIT TIMOTEO Not Available [facility] [address] [place] [address], [place], [address], 08/12/2017 16:12:18 08/06/20 17 08/06/2017 drug scree n, urine benzodiaz ur ql cfm <50 NG/mL >=50 NONE DETEC VIVI Not Available [facility] [address] [place] [address], [place], [address], 08/12/2017 16:12:18 08/06/20 17 08/06/2017 drug scree n, urine THC ur ql scn <5 NG/mL >=5 NONE DETEC VIVI Not Available [facility] [address] [place] [address], [place], [address], 08/12/2017 16:12:18 08/06/20 17 08/06/2017 drug scree n, urine gabapentinpr egabalin ur ql cfm >=5 mcg/m L >=5 POSIT TIMOTEO Not Available [facility] [address] [place] [address], [address], 08/12/2017 16:12:18 08/06/20 17 08/06/2017 drug scree n, urine pregabalin ur cfm-mcnc 115 mcg/m L >=5 POSIT TIMOTEO Not Available [facility] [address] [place] [address], [place], [address], 08/12/2017 16:12:18 08/06/20 17 08/06/2017 drug scree n, urine sedative hypnotics ur ql cfm >=4 NG/mL >=4 POSIT TIMOTEO Not Available [facility] [address] [place] [address], [address], 08/12/2017 16:12:18 08/06/20 17 08/06/2017 drug scree n, urine zolpidem ur cfm-mcnc 9 NG/mL >=4 POSIT TIMOTEO Not Available [facility] [address] [place] [address], [address], 08/12/2017 16:12:18 08/06/20 17 08/06/2017 drug scree n, urine zolpidem [id number] b ur cfm 8040 NG/mL >=4 POSIT TIMOTEO Not Available [facility] [address] [place] [address], [address], 08/12/2017 16:12:18 08/06/20 17 08/06/2017 drug scree n, urine bze ur ql cfm <50 NG/mL >=50 NONE DETEC VIVI Not Available [facility] [address] [place] [address], [place], [address], 08/12/2017 16:12:18 08/06/20 17 08/06/2017 drug scree n, urine opiates ur ql cfm <100 NG/mL >=100 NONE DETEC VIVI Not Available [facility] [address] [place] [address], [place], [address], 08/12/2017 16:12:18 08/06/20 17 08/06/2017 drug scree n, urine 6mam ur ql cfm <10 NG/mL >=10 NONE DETEC VIVI Not Available [facility] [address] [place] [address], [address], 08/12/2017 16:12:18 08/06/20 17 08/06/2017 drug scree n, urine methadone ur ql cfm >=200 NG/mL >=200 POSIT TIMOTEO Not Available [facility] [address] [place] [address], [address], 08/12/2017 16:12:18 08/06/20 17 08/06/2017 drug scree n, urine methadone ur cfm-mcnc 939 NG/mL >=200 POSIT TIMOTEO Not Available [facility] [address] [place] [address], [place], [address], 08/12/2017 16:12:18 08/06/20 17 08/06/2017 drug scree n, urine EDDP ur cfm-mcnc 62684 NG/mL >=200 POSIT TIMOTEO Not Available [facility] [address] [place] [address], [place], [address], 08/12/2017 16:12:18 08/06/20 17 08/06/2017 drug scree n, urine meperidine ur ql cfm <100 NG/mL >=100 NONE DETEC VIVI Not Available [facility] [address] [place] [address], [place], [address], 08/12/2017 16:12:18 08/06/20 17 08/06/2017 drug scree n, urine fentanyl+nor fentanyl ur ql cfm <5 NG/mL >=5 NONE DETEC VIVI Not Available [facility] [address] [place] [address], [place], [address], 08/12/2017 16:12:18 08/06/20 17 08/06/2017 drug scree n, urine carisoprodol +meprob ur ql scn <200 NG/mL >=200 NONE DETEC VIVI Not Available [facility] [address] [place] [address], [address], 08/12/2017 16:12:18 08/06/20 17 08/06/2017 drug scree n, urine tramadol ur ql cfm <100 NG/mL >=100 NONE DETEC VIVI Not Available [facility] [address] [place] [address], [address], 08/12/2017 16:12:18 08/06/20 17 08/06/2017 drug scree n, urine cotinine ur ql cfm <125 NG/mL >=125 NONE DETEC VIVI Not Available [facility] [address] [place] [address], [place], [address], 08/12/2017 16:12:18 08/06/20 17 08/06/2017 drug scree n, urine sn reuptake inhibitors ur ql >=5 NG/mL >=5 POSIT TIMOTEO Not Available [facility] [address] [place] [address], [address], 08/12/2017 16:12:18 08/06/20 17 08/06/2017 drug scree n, urine venlafaxine ur cfm-mcnc 4130 NG/mL >=5 POSIT TIMOTEO Not Available [facility] [address] [place] [address], [address], 08/12/2017 16:12:18 08/06/20 17 08/06/2017 drug scree n, urine odv ur cfm-mcnc 69374 NG/mL >=5 POSIT TIMOTEO Not Available [facility] [address] [place] [address], [address], 08/12/2017 16:12:18 08/06/20 17 08/06/2017 drug scree n, urine cannabinoids synthetic ql scn <2 NG/mL >=2 NONE DETEC VIVI Not Available [facility] [address] [place] [address], [address], 08/12/2017 16:12:18 08/06/20 17 08/06/2017 drug scree n, urine nitrite ur-mcnc <200 mcg/m L <200 normal NOEMI L Not Available [facility] [address] [place] [address], [address], 08/12/2017 16:12:18 08/06/20 17 08/06/2017 drug scree n, urine chromate ur-mcnc <50 mcg/m L <50 normal NOEMI L Not Available [facility] [address] [facility], [place], [address], 08/12/2017 16:12:18 08/06/20 17 08/06/2017 drug scree n, urine pH ur 8.4 hallman 3.5 - 9.0 normal NOEMI L Not Available [facility] [address] [place], [address], 08/12/2017 16:12:18 08/06/20 17 08/06/2017 drug scree n, urine creat ur-mcnc 111 mg/dL >=2 normal NOEMI L Not Available [facility] [address] [place] [address], [place], [address], 08/12/2017 16:12:18 08/06/20 17 08/06/2017 drug scree n, urine sp gr ur 1.0182 hallman >=1.00 20 normal NOEMI L Not Available [facility] [address] [place] [address], [address], 08/12/2017 16:12:18 Result Notes None recorded. Problems Name Problem SNOMED Code Status Onset Date Resolution Date Notes Provider Name and Address Organization Details Recorded Time Arthropath y 649907446 Active 2015 Not Available [facility] 6 10:18:55 Primary central sleep apnea 0350397571743 Active 2015 Not Available [facility] 6 10:18:55 Low back pain 113863897 Active 2015 Not Available [facility] 6 10:18:55 Impingemen t syndrome of shoulder region 016063033 Active 2015 Not Available [facility] 6 10:18:55 Lumbosacra l radiculopa thy 8513607 Active 2015 Not Available [facility] 6 10:18:55 Idiopathic osteoarthr itis 162250950 Active 2014 Not Available [facility] 6 10:18:55 Problem Notes None recorded. Procedures Surgical History Date Name Laterality Status Provider Name and Address Organization Details Recorded Time 01/28/20 18 Botox Initial completed MD Vaibhav Cotter[address], [place], [address], [facility] 01/27/2018 16:07:03 11/05/19 18 Trigger Point Injection completed MD Zay Cotter,[address], [place], [address], [facility] 11/05/2017 12:11:46 08/06/20 17 Trigger Point Injection completed MD Zay Cotter [address], [place], [address], [facility] 08/06/2017 12:18:34 05/02/20 17 Trigger Point Injection completed MD Zay Cotter,[address], [place], [address], [facility] 05/02/2017 14:55:38 04/17/20 17 EW Discography completed MD Zay Cotter,[address], [place], [address], [facility] 04/17/2017 13:38:35 01/24/20 17 EW 22g Transforaminal Epidural Steroid Injection completed Jennifer Quintana MD [address], [place], [address], [facility] 01/23/2017 14:34:07 10/07/19 17 Rotator Cuff Surgery completed Pam Kilgore [facility] 01/27/2018 11:02:47 10/07/19 14 Knee Surgery completed Molly Pate [facility] 10/10/2016 09:07:15 10/07/19 12 Eye Surgery completed Molly Pate [facility] 10/10/2016 09:07:15 10/07/19 12 Knee Surgery completed Molly Pate [facility] 10/10/2016 09:07:15 10/07/19 11 Hand Surgery completed Molly Pate [facility] 10/10/2016 09:07:15 10/07/19 10 Hysterectomy completed Molly Pate [facility] 10/10/2016 09:07:15 10/07/19 10 Bladder sling completed Molly Pate [facility] 10/10/2016 09:07:15 10/07/18 95 Hand Surgery completed Molly Pate [facility] 10/10/2016 09:07:15 10/07/18 93 Eye Surgery completed Mollyisidro Pate [facility] 10/10/2016 09:07:15 10/07/18 89 Gallbladder Surgery completed Mollyisidro Ptae [facility] 10/10/2016 09:07:15 Imaging Results None recorded. Procedure Notes None recorded. Medical Equipment None Reported. Allergies Allergen ID Allergen Name Allergen Category Reaction Reaction Severity Criticality Documentation Date Start Date Code Code System Note Provider Name and Address Organization Details Recorded Time 61003 Product containin g penicilli n (product) medicatio n Not available Not available Not available 08/08/20162010 87671 8001 SNOMED Comme nt: Repor vivi Year: 2010; Not Available [facility] 6 07:37:24 13477 penicilla mine medicatio n Not available Not available Not available 08/08/20162011 7975 RxNorm Sever ity: Unkno wn; [facility] 7 09:12:02 15889 sulfabenz amide Not available Not available Not available Not available 08/08/20162011 01917 RxNorm Sever ity: Unkno wn; Viviana [facility] 7 09:12:08 86459 Substance with sulfonami de structure and antibacte rial mechanism of action (substanc e) medicatio n Not available Not available Not available 08/08/20162010 66551 8003 SNOMED Comme nt: Repor vivi Year: 2010; Not Available Count includes the [facility] 6 07:37:24 39604 latex environme nt,medica tion itching moderate Not available 10/10/2016 33389 91 RxNorm [facility] 7 09:07:13 Medications Name Sig Start Date [...] Updated DateTime 05/28/2017 160.02 cm Sravani Hahn [facility] 05/28/2017 08:33:17 Date Recorded Body height Provider Name an d Address Organization Details Last Updated DateTime 08/06/2017 160.02 cm Jennifer Quintana MD [address], [address], [facility] 08/06/2017 11:30:12 Date Recorded Body height Provider Name an d Address Organization Details Last Updated DateTime 01/27/2018 160.02 cm Pam Kilgore [facility] 01/27/2018 11:02:27 Date Recorded Body height Provider Name an d Address Organization Details Last Updated DateTime 04/28/2018 160.02 cm Pam Kilgore [facility] 04/28/2018 10:51:44 Social History Question Answer Notes LastModified by Organizat ion Details LastModified Time Tobacco Smoking Status Never Smoker Not Available [facility] 08/09/2020 04:06:17 What Is Your Level Of Alcohol Consumption? None [id number] Information not available 08/09/2020 What Is Your Level Of Caffeine Consumption? None [id number] Information not available 08/09/2020 How Much Tobacco Do You Chew? None [id number] Information not available 08/09/2020 Are You Currently Employed? No [id number] Information not available 08/09/2020 Education 2 Year College [email or web address] n not available 10/10/2016 Which Of Your Hands Is Dominant? Right [id number] Information not available 08/09/2020 Marital Status [email or web address] Informatio n not available 01/27/2018 What Was The Date Of Your Most Recent Tobacco Screening? 04/28/2018 [id number] Information not available 08/09/2020 Sex: Unknown Functional [...] SNOMED-CT Code Diagnosis ICD10 Code Diagnosis Note [id number] MATTY Tipton MAIN OFFICE [address] [place] [address] 10/10/2016 08:30:52 10/10/2016 09:40:07 Full thickness rotator cuff tear 666431330 M75.122 IMAGING: MRI left shoulder shows a [...] like to proceed. Informed consent was obtained. [id number] Jennifer Quintana MD MAIN OFFICE [address] [facility] [address] [place] [address] 10/15/2016 08:11:52 10/15/2016 09:25:39 Full thickness rotator cuff tear 289325648 M75.122 Impingemen t syndrome of shoulder region 634194023 M75.42 Lumbosacra l radiculopathy 2837376 M54.16 Primary ce ntral sleep apnea 4281370733 101 G47.31 69114 MATTY Tipton MAIN OFFICE [address] [place] [address] 10/24/2016 08:08:01 10/24/2016 08:57:00 History of arthroscopic procedure on shoulder 497103251 Z98.890 IMPRESSION : 2 Weeks s/p left [...] 4 weeks History of major orthopedic surgery 673949970 Z98.890 24730 Ino Carias MD MAIN OFFICE [address] [place] [address] 11/28/2016 08:08:37 11/28/2016 08:31:35 History of arthroscopic procedure on shoulder 310445187 Z98.890 she is 6 weeks out now doing well she can discontinu e her sling. No active range of motion yet. Continue protocol. Follow-up 6 weeks. [id number] MATTY Tipton MAIN OFFICE [address] [place] [address] 01/09/2017 09:18:11 01/09/2017 10:26:53 History of arthroscopic procedure on shoulder 796666775 Z98.890 she is 12 weeks out now and she is doing very well. Recommend that she graduated from physical therapy to a home exercise program. Recommende d that she continue this for about 2 months. At this point she can follow up as needed. Patient was agreeable and all questions were answered today. [id number] Jennifer Quintana MD MAIN OFFICE [address] [place] [address] 01/10/2017 09:34:37 01/10/2017 11:28:59 Pain of joint of ankle and/or foot 355815479 M25.579 please obtain 3 views of the bilateral ankles and bilateral feet next appointmen t if she is still having pain after the injections . Consider physical therapy. Lumbar radiculopathy 128 797901 M54.16 recommend bilateral S1 nerve blocks. Fibromyalgia 113101258 M 79.7 Low back pain 329869192 M54.5 22574 Jennifer Quintana MD PAIN CENTER [address] [place] [address] 01/23/2017 13:52:32 01/24/2017 14:45:48 Lumbar radiculopathy 655936227 M54.16 recommend bilateral S1 nerve blocks. [id number] Jennifer Quintaan MD MAIN OFFICE [address] [place] [address] 03/12/2017 10:36:03 03/12/2017 11:18:45 Migraine 14023252 G43.909 advised weaning from butalbital as she is able. She has. She failed Topamax. She does not qualify for Botox. Lumbar radiculopathy 128 374299 M54.16 Neck pain 48453306 M54.2 Metatarsalgia 77366452 M 77.40 [id number] Volodymyr Bingham MD MAIN OFFICE [address] [place] [address] 03/21/2017 13:16:21 03/21/2017 14:28:53 Low back pain 234772852 M54.5 Neck pain 87492966 M54.2 Lumbosacra l spondylosis 664579728 M47.817 65092 Volodymyr Bingham MD MAIN OFFICE [address] [place] [address] 03/28/2017 14:53:55 03/28/2017 15:23:41 Low back pain 939386361 M54.5 Neck pain 56889132 M54.2 Lumbosacra l spondylosis 376781074 M47.817 Cervical spondylosis 387 595871 M47.812 Degenerati ve spondylolisthesis 6099012 M43.19 M43.16 M43.17 [id number] Jennifer Quintana MD MAIN OFFICE [address] [place] [address] 04/02/2017 12:37:04 04/02/2017 13:42:09 Lumbar spondylosis 282284266 M47.896 Lumbar radiculopathy 128 M54.16 [id number] Jennifer Quintana MD PAIN CENTER [address] [place] [address] [address] [place] [address] 04/17/2017 11:59:28 04/18/2017 08:34:06 Lumbosacral spondylosis without myelopathy 28237530 M47.817 [id number] Jennifer Quintana MD PAIN CENTER [address] [place] [address] [address] [place] [address] 05/02/2017 12:30:38 05/02/2017 13:44:03 Low back pain 892785057 M54.5 Neck pain 16015732 M54.2 [id number] Volodymyr Bingham MD MAIN OFFICE [address] [place] [address] 05/28/2017 08:22:27 05/28/2017 09:28:27 Spondylolisthesis 788662488 M43.19 Lumbosacra l spondylosis 194921486 M47.817 Low back pain 501707054 M54.5 Lumbar dis cogenic pain 725052401 M51.26 [id number] Jennifer Quintana MD MAIN OFFICE [address] [place] [address] 08/06/2017 10:58:18 08/06/2017 12:27:27 Long-term drug therapy 967835091 Z79.891 Low back pain 095378568 M54.5 Cervical s pondylosis with radiculopathy 259855675 M47.22 [id number] Jennifer Quintana MD MAIN OFFICE [address] [place] [address] 11/05/2017 10:50:11 11/05/2017 12:05:58 Neck pain 69857144 M54.2 Migraine without aura 56 966765 G43.009 urine drug screen as per protocol. [id number] Jennifer Quintana MD MAIN OFFICE [address] [place] [address] 01/27/2018 10:34:24 01/27/2018 12:02:53 Long-term drug therapy 219641322 Z79.891 Refractory migraine without aura 564997213 G43.719 [id number] Jennifer Quintana MD MAIN OFFICE [address] [place] [address] 04/28/2018 10:32:18 04/28/2018 11:44:58 Neck pain 18893661 M54.2 given slight anterolist hesis of C3 on 4, will recommend follow-up with Dr. Apodaca. Cervical s pondylosis with radiculopathy 197972215 M47.22 Migraine 57884693 G43.90 9 Health Concerns Section Related Observation LastModified by Organization Detai ls LastModified Time None Recorded Concern Status LastModified by Organization Details LastModified Time None Recorded Advance Directives Directive None Recorded Payers Encounter Date Sequence Insurance Name Policy Number Policy Ramirez Covered Member ID Ramirez Member ID Guarantor Name 05/28/2017 1 [place]AREEM Ulloa Hdz [id number] Laura E Hdz 05/28/2017 2 [place] [id number] Laura Laila Hdz [id number] Laura E Hdz 08/06/2017 1 [place] MAS[place]Y Laura Laila Hdz [id number] Laura E Hdz 08/06/2017 2 [place] 104 Laura Laila Hdz [id number] Laura E Hdz 11/05/2017 1 [place] Laura Laila Hdz [id number] Laura E Hdz 11/05/2017 2 [place] 104 Laura Laila Hdz [id number] Laura E Hdz 01/27/2018 1 [place] Laura Laila Hdz [id number] Laura E Hdz 01/27/2018 2 [place] 104 Laura E Hdz [id number] Laura E Hdz 04/28/2018 1 [place] MAS[place] Laura Laila Hdz [id number] Laura E Hdz 04/28/2018 2 [place] 104 Larua E Hdz [id number] Laura E Hdz Notes Date Note Type [...] to discuss surgical options. Srini Jarquin PA-C [address] [facility],[address], [place], [address], [facility] [facility] 06/06/2017 21:36:28 7 text/html Pain Management [...] aberrant behavior. Jennifer Quintana MD [address],[facility] [address], [place], [address], [facility] 08/06/2017 12:59:59 8 text/html Pain Management Follow-UpReported [...] if possible. Jennifer Quintana MD [address] [address], [place], [address], [facility] 11/05/2017 12:12:15 8 text/html Pt presents for her Botox injection today for migraines. Current pain level 1/10. Medications are helping. Denies recent infection or fever. Jennifer Quintana MD [address] [facility] [address], [place], [address], [facility] 01/27/2018 16:14:48 8 text/html Pain Management Follow-UpReported [...] current pain level 10. Jennifer Quintana MD [address] [facility],[address], [place], [address], [facility] 05/04/2018 15:26:40 OBGyn Episode No OBEpisode recorded.
== END 2025-02-01 12:10 | disposition home or self-care (01) ==
PROVIDERS: PCP Internal Medicine; Visit Provider Physician Assistant
DX: H10.9 Unspecified conjunctivitis (principal); B96.89 Other specified bacterial agents as the cause of diseases classified elsewhere

== ENCOUNTER → 2025-02-01 10:26 | Outpatient (BNVA) | payer MEDICARE, BC, SELFPAY | PROVIDERS: PCP Internal Medicine; Visit Provider Physician Assistant | DX: H10.9 Unspecified conjunctivitis (principal); B96.89 Other specified bacterial agents as the cause of diseases classified elsewhere | CPT/HCPCS: 99212 ==

== ENCOUNTER 2025-02-03 09:54 | Outpatient (AMB) | payer MEDICARE, BC, SELFPAY ==
--- NOTE | 2025-02-03 10:02 | MHC.OFFVIS ---
Vital Signs 02/03/25 10:03 Height 5 ft 2.5 in Weight 211 lb BMI 38.0 BP 151/73 H Blood Pressure Location Lt brachial Position Sitting Respiration 16 Pulse 92 Pulse Source Pulse Oximeter Pulse Oximetry (%) 97 Oxygen Delivery Method Room Air Intake Visit Reasons: Trigger point inj 6 weks Night Shift Manager Required: No Armament Aircraft Mechanic: Armament Aircraft Mechanic Present Accompanied by: Mirza Jackson Allergies Sulfa (Sulfonamide Antibiotics) [SULFA (SULFONAMIDE ANTIBIOTICS)] Allergy (Severe, Verified 02/03/25 10:04) ANAPHYLAXIS Penicillins [PENICILLINS] Allergy (Mild, Verified 02/03/25 10:04) RASH latex Adverse Reaction (Severe, Verified 02/03/25 10:04) Rash doxycycline Adverse Reaction (Mild, Verified 02/03/25 10:04) Abdominal Pain Medication List - Last Reconciled 02/03/25 by Bhakti Avila LPN albuterol sulfate 90 mcg/actuation 2 puffs inhalation Q6H PRN atorvastatin 10 mg PO DAILY 90 days btdxivbrnk-slhtael-wpndcyxm 50-325-40 mg 1 cap PO Q6-8H PRN 30 days calcium carbonate (Calcium 600) 600 mg PO DAILY cholecalciferol (vitamin D3) (Vitamin D3) 25 mcg PO DAILY erythromycin 0.5 inches ophthalmic (eye) QID fluticasone propionate 50 mcg/actuation 1 spray intranasal DAILY lidocaine 5% 1 patch topical DAILY loratadine (Claritin) 10 mg PO BEDTIME lorazepam 0.5 mg PO DAILY PRN 30 days metaxalone 800 mg PO TID PRN pcjbnjqgvyeu-znchltev-hmjlkb (Multivitamin 50 Plus tablet) 1 tab PO DAILY olopatadine 0.7% (Pataday Once Daily Relief) 1 drp ophthalmic (eye) Q24H PRN omeprazole 20 mg PO DAILY@0630 pregabalin 75 mg PO BID 30 days ropinirole 1 mg PO BEDTIME 90 days sumatriptan succinate 100 mg PO DAILY PRN 30 days tramadol 100 mg (2 x 50 mg) PO Q6H PRN 48 days venlafaxine ER 150 mg PO DAILY zolpidem ER 12.5 mg PO BEDTIME PRN 30 days HPI HPI Trigger point inj 6 jaquelineks: Details: History of Present Illness The patient is a 69-year-old female presenting with chronic back and shoulder pain, seeking relief through trigger point injections. She describes her pain as being centered in the back and shoulders, with occasional radiation into the neck and head, leading to headaches. The symptoms have been persistent and resistant to previous treatments like Botox injections, which were ineffective over an extended period. The patient expresses interest in other manageable treatment options as she has not undergone any spinal surgeries. Pain Description - Onset: Persistent and chronic - Quality: Radiating pain from the upper back and shoulders into the neck and head - Primary Location: Back and shoulders - Radiation: Up towards the neck and head, causing headaches - Exacerbating Factors: Not specifically detailed - Relieving Factors: Not specifically detailed - Functional Interference: Pain has affected quality of life Pain Management - Affect: Chronic pain appears to significantly impact daily mood - Analgesia: Previous Botox injections for headaches were ineffective over eight to nine months - Adverse Effects: Not specifically discussed - Activities of Daily Living: Chronic pain impacting quality of life - Aberrant Drug Related Behaviors: Not discussed or noted [facility] Medical History (Updated 02/01/25 @ 12:01 by Noemi Joy PA-C) Degenerative joint disease of shoulder, right Osteoarthritis Arthritis Back pain Celiac sprue GERD (gastroesophageal reflux disease) Anxiety Numbness Sepsis Sleep apnea Sacroiliac dysfunction Migraine Burn injury Sinusitis chronic, frontal Osteopenia Obesity (BMI 30-39.9) Major depression, recurrent Insomnia Primary osteoarthritis Urinary frequency Mitral valve prolapse Allergic rhinitis Gastritis Pure hypercholesterolemia Restless leg syndrome Cervicalgia Lumbar degenerative disc disease Fibromyalgia Surgical History History of lumbar spinal fusion History of bilateral knee arthroplasty Hx of eye surgery History of cataract surgery History of carpal tunnel release History of bunionectomy S/P GINGER-BSO (total abdominal hysterectomy and bilateral salpingo-oophorectomy) History of repair of rotator cuff History of arthroscopy of both knees Hx of cholecystectomy Hx of endoscopy History of colonoscopy Family History Father History of cancer Mother History of cancer History of high blood pressure Hx of diabetes mellitus Social History Household Members: Significant Other Household Members Other:: DAUGHTER AND HER FAMILY Housing: House Are you a primary care specialist to a significant other at home: No Do you presently have visiting nurse or other home services: No Alcohol intake: current Alcohol intake frequency: a few times a month Patient Tobacco Use Status: Never used Tobacco Tobacco use type: Cigarette e-Cigarette/Vaping Use: Never Used Second Hand Smoke Exposure: Yes service: No Current occupational status: retired Cognitive needs: No Hearing needs: No Vision needs: Yes Physical Exam Vital Signs: Last Vital Signs Pulse 92 02/03/25 10:03 Resp 16 02/03/25 10:03 BP 151/73 H 02/03/25 10:03 Pulse Ox 97 02/03/25 10:03 Oxygen Delivery Method Room Air 02/03/25 10:03 BMI result Body Mass Index 38.0 Office Procedures Injection Trigger Point Multi Site and number of trigger points: Bilateral rhomboids. bilateral trapezius bilateral occipitalis. Bilateral cervical paraspinal Solution: Total volume administered 15 ml (0.25% ropivacaine) The procedure, its benefits, and its risks were explained to the patient and all questions were answered. Prior to the start of the procedure, a ?time out? was performed to confirm correct patient, procedure, and laterality. Trigger points were identified by manual palpation and marked. The skin was cleaned with Chloraprep. A 1.5 inch 25 G needle was used. Each of the trigger points were approximated and elevated in the direction away from the body. Dry needling then took place for five seconds. Approximately 0.5 ml to 1 ml of injectate was delivered to the trigger point followed by dry needling for five seconds. This process was repeated at each trigger point site. The patient tolerated the procedure well. Post-procedure, breath sounds were equal at both sides of the chest. The patient tolerated the procedure well, without complication. The patient denied any numbness, paresthesia, or weakness. Post-procedure vitals were recorded as part of the nursing discharge note in electronic medical record. Following a period of observation, the patient was discharged in stable condition with written discharge instructions. Trigger Point Multiple: 63565- Trigger point injection =/>3 Assessment & Plan Assessment & Plan (1) Myofascial pain: Code(s): M79.18 - Myalgia, other site Category: Medical Plan Plan - Administered trigger point injections with lidocaine for pain management - Plan follow-up in six weeks to assess treatment effectiveness Patient was informed and verbally consented to the use of an ambient scribe for clinic note documentation during this visit. Discussion Notes I discussed with the patient the use of trigger point injections with lidocaine to manage her chronic back and shoulder pain, given her past experience with Botox injections for headache relief which did not yield the desired results. We covered the procedure's benefits and potential for alleviating pain specifically in the identified areas. There are no current plans for additional surgical interventions, as her screening history shows no cervical spine surgeries that might complicate this treatment. The patient agreed to proceed with the injection plan, understanding the expected outcomes and follow-up in six weeks. Patient Instructions - Follow-up appointment scheduled for six weeks - Monitor pain levels and report any changes or side effects - Use prescribed medications responsibly and as directed - Notify the clinic of any significant changes in symptoms Coding Level of Care Code Procedure Only Diagnoses Myofascial pain M79.18 CPT Codes Details - Trigger Point Multiple: 46610- Trigger point injection =/>3 ([id number])
[2025-02-03 10:03] VITALS: BP 151/73; PULSE 92; RESP 16; O2SAT 97; BMI 38.0
--- OUTSIDE RECORDS SUMMARY | 2025-02-03 10:52 | XMS_ITS | Data Portability ---
Author Organization [facility], MAIN OFFICE Address [address] [place] [address] Care Team Providers Care High Man Name Role Phone ROSIO MARES Primary Care Provider [phone] Assessment Encounter Date Assessment Date Assessment LastModified by Organization Details LastModified Time 05/28/2017 05/28/2017 Dr Bingham in to s ee the patient. SCANS: Lumbar MRI (done at [facility] on 03/26/2017) findings/interpreta tion: Multilevel spondylosis. [...] recorded. Lab drug screen, urine 2017 018 [email or web address] Main Office, [address], [address], [place], [address], 8 16:36:58 drug screen, urine 2016 017 CARA Main Office, [address], [address], [place], [address], 7 14:46:03 Referral general surgeon referral - possible ALIF L4/5 L5/S1 please call patient with appt 2016 017 [email or web address] Duran Paris MD, [address], [place], [address], 7 21:27:09 Procedures None recorded. Surgeries None recorded. Imaging XR, cervical spine, 4 or 5 view 2017 018 [email or web address] Main Office, [address], [address], [place], [address], 8 08:25:32 Medication Orders hydrocodone 10 mg-acetamin ophen 325 mg tablet 2016 017 [email or web address] Not available 7 12:54:37 Patient Targets Encounter Date Encounter Id Patient Goals Patient Target Last Modified By Organization Details Last Modified Time [facility] record checked.Low risk UDTBased on the most [...] marijuana, meperidine, methadone, opiates, tapentadol, and tramadol. [email or web address] Not available 08/06/2017 12:59:51 we'll continue current medications.D ROSARIO record checked.Recom mend Botox for migraines. Not available 11/05/2017 12:11:16 [facility] website checked.Naresh nue hydrocodone, Lidoderm patches, Fioricet, Arthrotec, Botox her headaches. [email or web address] Not available 05/04/2018 15:26:02 Patient Instructions Encounter Date Encounter Id Patient Instructions Last Modified By Organization Details Last Modified Time 11/05/2017 [id number] neck pain: care instructions [email or web address] Not available 11/05/2017 12:12:08 04/28/2018 [id number] neck pain: care instructions [email or web address] Not available 04/29/2018 19:29:13 Reason for Referral General Surgeon Referral for Spondylolisthesis consideration of ALIF possible ALIF L4/5 L5/S1 please call patient with appt Referring Physician: Volodymyr Bingham, Orthopedic Surgery, Encounter Date: 05/28/2017 Results Created Date Observation Date Name Description Value Unit Range Abnormal Flag Note LastModifiedBy Organization Detail LastModifiedTime 08/06/20 17 08/06/2017 drug scree n, [place]lafaxine ur CMP 59578 NG/mL >=5 normal COMPL IANT: Test resul t is consi stent and expec vivi with presc ribed drug. Not Available [facility] [address] [place] [address], [address], 08/12/2017 16:12:18 08/06/20 17 08/06/2017 drug scree n, urine methadone ur CMP 52853 NG/mL >=200 normal COMPL IANT: Test resul t is consi stent and expec vivi with presc ribed drug. Not Available [facility] [address] [place] [address], [address], 08/12/2017 16:12:18 08/06/20 17 08/06/2017 drug scree n, urine zolpidem ur CMP 8050 NG/mL >=4 normal COMPL IANT: Test resul t is consi stent and expec vivi with presc ribed drug. Not Available [facility] [address] [facility], [place], [address], 08/12/2017 16:12:18 08/06/20 17 08/06/2017 drug scree n, urine pregabalin ur CMP 115 mcg/m L >=5 normal COMPL IANT: Test resul t is consi stent and expec vivi with presc ribed drug. Not Available [facility] [address] [place], [address], 08/12/2017 16:12:18 08/06/20 17 08/06/2017 drug scree n, urine butalbital ur CMP 1990 NG/mL >=200 normal COMPL IANT: Test resul t is consi stent and expec vivi with presc ribed drug. Not Available [facility] [address] [place] [address], [place], [address], 08/12/2017 16:12:18 08/06/20 17 08/06/2017 drug scree n, urine cathinones synthetic ur ql scn <25 NG/mL >=25 NONE DETEC VIVI Not Available [facility] [address] [place] [address], [place], [address], 08/12/2017 16:12:18 08/06/20 17 08/06/2017 drug scree n, urine buprenorphin e ur ql cfm <1 NG/mL >=1 NONE DETEC VIVI Not Available [facility] [address] [place] [address], [place], [address], 08/12/2017 16:12:18 08/06/20 17 08/06/2017 drug scree n, urine alcohol metabolites ur ql cfm <200 NG/mL >=200 NONE DETEC VIVI Not Available [facility] [address] [place] [address], [place], [address], 08/12/2017 16:12:18 08/06/20 17 08/06/2017 drug scree n, urine ethyl glucuronide ur cfm-mcnc <500 NG/mL >=500 NONE DETEC VIVI Not Available [facility] [address] [place] [address], [place], [address], 08/12/2017 16:12:18 08/06/20 17 08/06/2017 drug scree n, urine ethyl sulfate ur cfm-mcnc <200 NG/mL >=200 NONE DETEC VIVI Not Available [facility] [address] [place] [address], [place], [address], 08/12/2017 16:12:18 08/06/20 17 08/06/2017 drug scree n, urine tapentadol ur ql cfm <100 NG/mL >=100 NONE DETEC VIVI Not Available [employer] [address] [place] [address], [place], [address], 08/12/2017 16:12:18 08/06/20 17 08/06/2017 drug scree n, urine amphetamines ur ql cfm <250 NG/mL >=250 NONE DETEC VIVI Not Available [facility] [address] [place] [address], [place], [address], 08/12/2017 16:12:18 08/06/20 17 08/06/2017 drug scree n, urine barbiturates ur ql cfm >=200 NG/mL >=200 POSIT TIMOTEO Not Available [facility] [address] [place] [address], [place], [address], 08/12/2017 16:12:18 08/06/20 17 08/06/2017 drug scree n, urine butalbital ur cfm-mcnc 1990 NG/mL >=200 POSIT TIMOTEO Not Available [facility] [address] [place] [address], [place], [address], 08/12/2017 16:12:18 08/06/20 17 08/06/2017 drug scree n, urine benzodiaz ur ql cfm <50 NG/mL >=50 NONE DETEC VIVI Not Available [facility] [address] [place] [address], [place], [address], 08/12/2017 16:12:18 08/06/20 17 08/06/2017 drug scree n, urine THC ur ql scn <5 NG/mL >=5 NONE DETEC VIVI Not Available [facility] [address] [place] [address], [place], [address], 08/12/2017 16:12:18 08/06/20 17 08/06/2017 drug scree n, urine gabapentinpr egabalin ur ql cfm >=5 mcg/m L >=5 POSIT TIMOTEO Not Available [facility] [address] [place] [address], [address], 08/12/2017 16:12:18 08/06/20 17 08/06/2017 drug scree n, urine pregabalin ur cfm-mcnc 115 mcg/m L >=5 POSIT TIMOTEO Not Available [facility] [address] [place] [address], [place], [address], 08/12/2017 16:12:18 08/06/20 17 08/06/2017 drug scree n, urine sedative hypnotics ur ql cfm >=4 NG/mL >=4 POSIT TIMOTEO Not Available [facility] [address] [place] [address], [address], 08/12/2017 16:12:18 08/06/20 17 08/06/2017 drug scree n, urine zolpidem ur cfm-mcnc 9 NG/mL >=4 POSIT TIMOTEO Not Available [facility] [address] [place] [address], [address], 08/12/2017 16:12:18 08/06/20 17 08/06/2017 drug scree n, urine zolpidem ljxila-3-nal b ur cfm 8040 NG/mL >=4 POSIT TIMOTEO Not Available [facility] [address] [place] [address], [address], 08/12/2017 16:12:18 08/06/20 17 08/06/2017 drug scree n, urine bze ur ql cfm <50 NG/mL >=50 NONE DETEC VIVI Not Available [facility] [address] [place] [address], [place], [address], 08/12/2017 16:12:18 08/06/20 17 08/06/2017 drug scree n, urine opiates ur ql cfm <100 NG/mL >=100 NONE DETEC VIVI Not Available [facility] [address] [place] [address], [place], [address], 08/12/2017 16:12:18 08/06/20 17 08/06/2017 drug scree n, urine 6mam ur ql cfm <10 NG/mL >=10 NONE DETEC VIVI Not Available [facility] [address] [place] [address], [address], 08/12/2017 16:12:18 08/06/20 17 08/06/2017 drug scree n, urine methadone ur ql cfm >=200 NG/mL >=200 POSIT TIMOTEO Not Available [facility] [address] [place] [address], [address], 08/12/2017 16:12:18 08/06/20 17 08/06/2017 drug scree n, urine methadone ur cfm-mcnc 939 NG/mL >=200 POSIT TIMOTEO Not Available [facility] [address] [place] [address], [place], [address], 08/12/2017 16:12:18 08/06/20 17 08/06/2017 drug scree n, urine EDDP ur cfm-mcnc 10521 NG/mL >=200 POSIT TIMOTEO Not Available [facility] [address] [place] [address], [place], [address], 08/12/2017 16:12:18 08/06/20 17 08/06/2017 drug scree n, urine meperidine ur ql cfm <100 NG/mL >=100 NONE DETEC VIVI Not Available [facility] [address] [place] [address], [place], [address], 08/12/2017 16:12:18 08/06/20 17 08/06/2017 drug scree n, urine fentanyl+nor fentanyl ur ql cfm <5 NG/mL >=5 NONE DETEC VIVI Not Available [facility] [address] [place] [address], [place], [address], 08/12/2017 16:12:18 08/06/20 17 08/06/2017 drug scree n, urine carisoprodol +meprob ur ql scn <200 NG/mL >=200 NONE DETEC VIVI Not Available [facility] [address] [place] [address], [address], 08/12/2017 16:12:18 08/06/20 17 08/06/2017 drug scree n, urine tramadol ur ql cfm <100 NG/mL >=100 NONE DETEC VIVI Not Available [facility] [address] [place] [address], [address], 08/12/2017 16:12:18 08/06/20 17 08/06/2017 drug scree n, urine cotinine ur ql cfm <125 NG/mL >=125 NONE DETEC VIVI Not Available [facility] [address] [place] [address], [place], [address], 08/12/2017 16:12:18 08/06/20 17 08/06/2017 drug scree n, urine sn reuptake inhibitors ur ql >=5 NG/mL >=5 POSIT TIMOTEO Not Available [facility] [address] [place] [address], [address], 08/12/2017 16:12:18 08/06/20 17 08/06/2017 drug scree n, urine venlafaxine ur cfm-mcnc 4130 NG/mL >=5 POSIT TIMOTEO Not Available [facility] [address] [place] [address], [address], 08/12/2017 16:12:18 08/06/20 17 08/06/2017 drug scree n, urine odv ur cfm-mcnc 91900 NG/mL >=5 POSIT TIMOTEO Not Available [facility] [address] [place] [address], [address], 08/12/2017 16:12:18 08/06/20 17 08/06/2017 drug scree n, urine cannabinoids synthetic ql scn <2 NG/mL >=2 NONE DETEC VIVI Not Available [facility] [address] [place] [address], [address], 08/12/2017 16:12:18 08/06/20 17 08/06/2017 drug scree n, urine nitrite ur-mcnc <200 mcg/m L <200 normal NOEMI L Not Available [facility] [address] [place] [address], [address], 08/12/2017 16:12:18 08/06/20 17 08/06/2017 drug scree n, urine chromate ur-mcnc <50 mcg/m L <50 normal NOEMI L Not Available [facility] [address] [facility] [facility], [place], [address], 08/12/2017 16:12:18 08/06/20 17 08/06/2017 drug scree n, urine pH ur 8.4 hallman 3.5 - 9.0 normal NOEMI L Not Available [facility] [address] [place], [address], 08/12/2017 16:12:18 08/06/20 17 08/06/2017 drug scree n, urine creat ur-mcnc 111 mg/dL >=2 normal NOEMI L Not Available [facility] [address] [place] [address], [place], [address], 08/12/2017 16:12:18 08/06/20 17 08/06/2017 drug scree n, urine sp gr ur 1.0182 hallman >=1.00 20 normal NOEMI L Not Available [facility] [address] [place] [address], [address], 08/12/2017 16:12:18 Result Notes None recorded. Problems Name Problem SNOMED Code Status Onset Date Resolution Date Notes Provider Name and Address Organization Details Recorded Time Arthropath y 958067557 Active 2015 Not Available [facility] 6 10:18:55 Primary central sleep apnea 2021032885011 Active 2015 Not Available [facility] 6 10:18:55 Low back pain 142616617 Active 2015 Not Available [facility] 6 10:18:55 Impingemen t syndrome of shoulder region 822305899 Active 2015 Not Available [facility] 6 10:18:55 Lumbosacra l radiculopa thy 8747328 Active 2015 Not Available [facility] 6 10:18:55 Idiopathic osteoarthr itis 430274935 Active 2014 Not Available [facility] 6 10:18:55 Problem Notes None recorded. Procedures Surgical History Date Name Laterality Status Provider Name and Address Organization Details Recorded Time 01/28/20 18 Botox Initial completed MD Vaibhav Cotter[address], [place], [address], [facility] 01/27/2018 16:07:03 11/05/19 18 Trigger Point Injection completed MD Zay Cotter,[address], [place], [address], [facility] 11/05/2017 12:11:46 08/06/20 17 Trigger Point Injection completed MD Zay [address], [place], [address], [facility] 08/06/2017 12:18:34 05/02/20 17 Trigger Point Injection completed MD Zay [address]ter,[address], [place], [address], [facility] 05/02/2017 14:55:38 04/17/20 17 EW Discography completed MD Zay [address]ter,[address], [place], [address], [facility] 04/17/2017 13:38:35 01/24/20 17 EW 22g Transforaminal Epidural Steroid Injection completed Jennifer Qunitana MD [address], [place], [address], [facility] 01/23/2017 14:34:07 10/07/19 17 Rotator Cuff Surgery completed Pam Kilgore [facility] 01/27/2018 11:02:47 10/07/19 14 Knee Surgery completed Molly Pate [facility] 10/10/2016 09:07:15 10/07/19 12 Eye Surgery completed Molly Pate [facility] 10/10/2016 09:07:15 10/07/19 12 Knee Surgery completed Molly Pate [facility] 10/10/2016 09:07:15 10/07/19 11 Hand Surgery completed Molly Pate [facility] 10/10/2016 09:07:15 10/07/19 10 Hysterectomy completed Molly Pate [facility] 10/10/2016 09:07:15 10/07/19 10 Bladder sling completed Molly Pate [facility] 10/10/2016 09:07:15 10/07/18 95 Hand Surgery completed Molly Pate [facility] 10/10/2016 09:07:15 10/07/18 93 Eye Surgery completed Mollyisidro Pate [facility] 10/10/2016 09:07:15 10/07/18 89 Gallbladder Surgery completed Mollyisidro Pate [facility] 10/10/2016 09:07:15 Imaging Results None recorded. Procedure Notes None recorded. Medical Equipment None Reported. Allergies Allergen ID Allergen Name Allergen Category Reaction Reaction Severity Criticality Documentation Date Start Date Code Code System Note Provider Name and Address Organization Details Recorded Time 25858 Product containin g penicilli n (product) medicatio n Not available Not available Not available 08/08/20162010 62176 8001 SNOMED Comme nt: Repor vivi Year: 2010; Not Available [facility] 6 07:37:24 77511 penicilla mine medicatio n Not available Not available Not available 08/08/20162011 7975 RxNorm Sever ity: Unkno wn; [facility] 7 09:12:02 44972 sulfabenz amide Not available Not available Not available Not available 08/08/20162011 78563 RxNorm Sever ity: Unkno wn; [facility] 7 09:12:08 14984 Substance with sulfonami de structure and antibacte rial mechanism of action (substanc e) medicatio n Not available Not available Not available 08/08/20162010 04652 8003 SNOMED Comme nt: Repor vivi Year: 2010; Not Available [facility] 6 07:37:24 64504 latex environme nt,medica tion itching moderate Not available 10/10/2016 66655 91 RxNorm [facility] 7 09:07:13 Medications Name Sig Start [...] Updated DateTime 05/28/2017 160.02 cm Sravani Hahn [facility] 05/28/2017 08:33:17 Date Recorded Body height Provider Name an d Address Organization Details Last Updated DateTime 08/06/2017 160.02 cm Jennifer Quintana MD [address], [address], [facility] 08/06/2017 11:30:12 Date Recorded Body height Provider Name an d Address Organization Details Last Updated DateTime 01/27/2018 160.02 cm Pam Kilgore [facility] 01/27/2018 11:02:27 Date Recorded Body height Provider Name an d Address Organization Details Last Updated DateTime 04/28/2018 160.02 cm Pam Kilgore [facility] 04/28/2018 10:51:44 Social History Question Answer Notes LastModified by Organizat ion Details LastModified Time Tobacco Smoking Status Never Smoker Not Available [facility] 08/09/2020 04:06:17 What Is Your Level Of Alcohol Consumption? None [id number] Information not available 08/09/2020 What Is Your Level Of Caffeine Consumption? None [id number] Information not available 08/09/2020 How Much Tobacco Do You Chew? None [id number] Information not available 08/09/2020 Are You Currently Employed? No [id number] Information not available 08/09/2020 Education 2 Year College [email or web address] Informatio n not available 10/10/2016 Which Of Your Hands Is Dominant? Right [id number] Information not available 08/09/2020 Marital Status xuan Informatio n not available 01/27/2018 What Was The Date Of Your Most Recent Tobacco Screening? 04/28/2018 [id number] Information not available 08/09/2020 Sex: Unknown Functional [...] SNOMED-CT Code Diagnosis ICD10 Code Diagnosis Note [id number] MATTY [place] MAIN OFFICE [address] [place] [address] 10/10/2016 08:30:52 10/10/2016 09:40:07 Full thickness rotator cuff tear 087234307 M75.122 IMAGING: MRI left shoulder shows a [...] like to proceed. Informed consent was obtained. 65866 MATTY BECKMAN MAIN OFFICE [address] [place] [address] 10/15/2016 08:11:52 10/15/2016 09:25:39 Full thickness rotator cuff tear 705025642 M75.122 Impingemen t syndrome of shoulder region 457006972 M75.42 Lumbosacra l radiculopathy 6786251 M54.16 Primary ce ntral sleep apnea 3499539746 101 G47.31 03801 Ino Carias MD MAIN OFFICE [address] [place] [address] 10/24/2016 08:08:01 10/24/2016 08:57:00 History of arthroscopic procedure on shoulder 537674906 Z98.890 IMPRESSION : 2 Weeks s/p left [...] 4 weeks History of major orthopedic surgery 097973660 Z98.890 14751 Ino Carias MD MAIN OFFICE [address] [place] [address] 11/28/2016 08:08:37 11/28/2016 08:31:35 History of arthroscopic procedure on shoulder 394642969 Z98.890 she is 6 weeks out now doing well she can discontinu e her sling. No active range of motion yet. Continue protocol. Follow-up 6 weeks. 18835 Ino Carias MD MAIN OFFICE [address] [place] [address] 01/09/2017 09:18:11 01/09/2017 10:26:53 History of arthroscopic procedure on shoulder 146850591 Z98.890 she is 12 weeks out now and she is doing very well. Recommend that she graduated from physical therapy to a home exercise program. Recommende d that she continue this for about 2 months. At this point she can follow up as needed. Patient was agreeable and all questions were answered today. [id number] Jennifer Quintana MD MAIN OFFICE [address] [place] [address] 01/10/2017 09:34:37 01/10/2017 11:28:59 Pain of joint of ankle and/or foot 955210419 M25.579 please obtain 3 views of the bilateral ankles and bilateral feet next appointmen t if she is still having pain after the injections . Consider physical therapy. Lumbar radiculopathy 128 184087 M54.16 recommend bilateral S1 nerve blocks. Fibromyalgia 429245717 M 79.7 Low back pain 742713792 M54.5 [id number] Jennifer Quintana MD PAIN CENTER [address] [place] [address] 01/23/2017 13:52:32 01/24/2017 14:45:48 Lumbar radiculopathy 128423744 M54.16 recommend bilateral S1 nerve blocks. [id number] Jennifer Quintana MD MAIN OFFICE [address] [place] [address] 03/12/2017 10:36:03 03/12/2017 11:18:45 Migraine 15421766 G43.909 advised weaning from butalbital as she is able. She has. She failed Topamax. She does not qualify for Botox. Lumbar radiculopathy 128 346934 M54.16 Neck pain 12829580 M54.2 Metatarsalgia 93410331 M 77.40 [id number] Volodymyr Bingham MD MAIN OFFICE [address] [place] [address] 03/21/2017 13:16:21 03/21/2017 14:28:53 Low back pain 466291450 M54.5 Neck pain 30463635 M54.2 Lumbosacra l spondylosis 986148681 M47.817 [id number] Volodymyr Bingham MD MAIN OFFICE [address] [place] [address] 03/28/2017 14:53:55 03/28/2017 15:23:41 Low back pain 907941365 M54.5 Neck pain 45969628 M54.2 Lumbosacra l spondylosis 832499508 M47.817 Cervical spondylosis 387 884259 M47.812 Degenerati ve spondylolisthesis 3748735 M43.19 M43.16 M43.17 88506 Jennifer Quintana MD MAIN OFFICE [address] [place] [address] 04/02/2017 12:37:04 04/02/2017 13:42:09 Lumbar spondylosis 528901527 M47.896 Lumbar radiculopathy 128 M54.16 [id number] Jennifer Quintana MD PAIN CENTER [address] [place] [address] [address] [place] [address] 04/17/2017 11:59:28 04/18/2017 08:34:06 Lumbosacral spondylosis without myelopathy 06054221 M47.817 [id number] Jennifer Quintana MD PAIN CENTER [address] [place] [address] [address] [place] [address] 05/02/2017 12:30:38 05/02/2017 13:44:03 Low back pain 439557063 M54.5 Neck pain 34375013 M54.2 [id number] Volodymyr Bingham MD MAIN OFFICE [address] [place] [address] 05/28/2017 08:22:27 05/28/2017 09:28:27 Spondylolisthesis 962293892 M43.19 Lumbosacra l spondylosis 294119360 M47.817 Low back pain 716930866 M54.5 Lumbar dis cogenic pain 205992647 M51.26 [id number] Jennifer Quintana MD MAIN OFFICE [address] [place] [address] 08/06/2017 10:58:18 08/06/2017 12:27:27 Long-term drug therapy 586898733 Z79.891 Low back pain 377654411 M54.5 Cervical s pondylosis with radiculopathy 034941956 M47.22 [id number] Jennifer Quintana MD MAIN OFFICE [address] [place] [address] 11/05/2017 10:50:11 11/05/2017 12:05:58 Neck pain 13774528 M54.2 Migraine without aura 56 728199 G43.009 urine drug screen as per protocol. [id number] Jennifer Quintana MD MAIN OFFICE [address] [place] [address] 01/27/2018 10:34:24 01/27/2018 12:02:53 Long-term drug therapy 640090942 Z79.891 Refractory migraine without aura 927275146 G43.719 [id number] Jennifer Quintana MD MAIN OFFICE [address] [place] [address] 04/28/2018 10:32:18 04/28/2018 11:44:58 Neck pain 62967190 M54.2 given slight anterolist hesis of C3 on 4, will recommend follow-up with Dr. Apodaca. Cervical s pondylosis with radiculopathy 336506154 M47.22 Migraine 35082110 G43.90 9 Health Concerns Section Related Observation LastModified by Organization Detai ls LastModified Time None Recorded Concern Status LastModified by Organization Details LastModified Time None Recorded Advance Directives Directive None Recorded Payers Encounter Date Sequence Insurance Name Policy Number Policy Ramirez Covered Member ID Ramirez Member ID Guarantor Name 05/28/2017 1 [place]AREEM Ulloa Hdz [id number] Laura Laila Hdz 05/28/2017 2 [place] [id number] Laura Laila Hdz [id number] Laura E Hdz 08/06/2017 1 [place] MASSEY Laura Laila Hdz [id number] Laura E Hdz 08/06/2017 2 [place] 104 Laura Laila Hdz [id number] Laura E Hdz 11/05/2017 1 [place] MASSEY Laura Laila Hdz [id number] Laura E Hdz 11/05/2017 2 [place] 104 Laura Laila Hdz [id number] Laura E Hdz 01/27/2018 1 [place] MASSEY Laura Laila Hdz [id number] Laura E Hdz 01/27/2018 2 [place] 104 Laura E Hdz [id number] Laura E Hdz 04/28/2018 1 [place] MASSEY Laura Laila Hdz [id number] Laura E Hdz 04/28/2018 2 [employer] 104 Laura E Hdz [id number] Laura E Hdz Notes Date Note Type [...] to discuss surgical options. Srini Jarquin PA-C [address] [facility],[address], [place], [address], [facility] 06/06/2017 21:36:28 7 text/html Pain Management Follow-UpReported bypatient.Current level of painMild pain: 1/ to 2/ Location:lower back UDT/SOAP:UDT: (MTD BAR); SOAP: (low) [...] aberrant behavior. Jennifer Quintana MD [address],[facility] [address], [place], [address], [facility] 08/06/2017 12:59:59 8 text/html Pain Management Follow-UpReported [...] MD [address] [address], [place], [address], [facility] 11/05/2017 12:12:15 8 text/html Pt presents for her Botox injection today for migraines. Current pain level 1/10. Medications are helping. Denies recent infection or fever. Jennifer Quintana MD [address] [facility] [address], [place], [address], [facility] 01/27/2018 16:14:48 8 text/html Pain Management Follow-UpReported [...] current pain level 10. Jennifer Quintana MD [address] [facility],[address], [place], [address], [facility] 05/04/2018 15:26:40 OBGyn Episode No OBEpisode recorded.
--- OUTSIDE RECORDS SUMMARY | 2025-02-03 10:52 | XMS_ITS | Clinical Summary ---
Author Organization [facility] Facility Address [address] [place] [id number] Care Team Providers Care Ply Cutter Name Role Phone Unavailable Primary Care Provider [...] patient's age to complete this topic [id number] Medicare
--- OUTSIDE RECORDS SUMMARY | 2025-02-03 10:52 | XMS_ITS | Clinical Summary ---
Author Organization [address] [facility] Address [address] [place] [address] Phone Care Team Providers Care Core Extruder Name Role Phone Osmany Browning MD Primary [...] 2:30 PM EST Consult Orthopedic Surgery - [address] [place] [address] Marixa Emery MD Arthritis of [...] t from Last 3 Months Insurance MEDICARE [facility] Care Teams Core Extruder Relationship Specialty Start Date End Date Osmany Browning MD [address] [place] [address] [address] TRISTAN Bro PCP - General Internal Medicine 12/08/24
--- OUTSIDE RECORDS SUMMARY | 2025-02-03 10:53 | XMS_ITS | Data Portability ---
Author Organization [place] [facility], [facility] Address [address] [facility] [facility] [address] [place] [address] Care Team Providers Care Bird Keeper Name Role Phone [facility] Primary Care Provider Assessment No assessment recorded. Plan of Treatment Reminders Order Date Submit Date Provider Last Modified By Organization Details Last Modified Time Details Appointments None recorded. Lab urinalysis , dipstick 2017 018 [facility] [address] [facility], [address], [place], [address], 8 16:24:52 Referral None recorded. Procedures facet joint injection, cervical (PROC) - [id number] 2018 019 [email or web address] Not available 9 09:52:02 Surgeries None recorded. Imaging None recorded. Medication Orders None recorded. Patient TargetsNo targets recorded. Patient Instructions Encounter Date Encounter Id Patient Instructions Last Modified By Organization Details Last Modified Time 07/02/2018 [id number] Continue current medications. Routine drug screens. Follow-up [...] this document. Not available 07/02/2018 13:46:50 11/17/2018 [id number] Discussed the option of repeating C4-5 and [...] NG/mL >=5 NONE DETEC VIVI Not Available [facility] [address] [place] [address], [address], 07/09/2018 14:08:31 07/02/20 18 07/02/2018 katerin turat es, QL, scree n, urine barbiturates ur ql cfm >=200 NG/mL >=200 POSIT TIMOTEO Not Available [facility] [address] [place] [address], [place], [address], 07/09/2018 14:08:31 07/02/20 18 07/05/2018 katerin turat es, QL, scree n, urine butalbital ur cfm-mcnc 1380 NG/mL >=200 POSIT TIMOTEO Not Available [facility] [address] [place] [address], [place], [address], 07/09/2018 14:08:31 07/02/20 18 07/02/2018 drug scree n, urine sedative hypnotics ur ql cfm <4 NG/mL >=4 NONE DETEC VIVI Not Available [facility] [address] [place] [address], [address], 07/09/2018 14:08:30 07/02/20 18 07/02/2018 metax alone , QN, urine metaxalone ur ql cfm <50 NG/mL >=50 NONE DETEC VIVI Not Available [facility] [address] [place] [address], [address], 07/09/2018 14:08:30 07/02/20 18 07/02/2018 drug scree n, urine buprenorphin e ur ql cfm <1 NG/mL >=1 NONE DETEC VIVI Not Available [facility] [address] [place] [address], [place], [address], 07/09/2018 14:08:29 07/02/20 18 07/02/2018 drug scree n, urine alcohol metabolites ur ql cfm <200 NG/mL >=200 NONE DETEC VIVI Not Available [facility] [address] [place] [address], [place], [address], 07/09/2018 14:08:29 07/02/20 18 07/02/2018 drug scree n, urine amphetamines ur ql cfm <0 NG/mL >=0 NONE DETEC VIVI Not Available [facility] [address] [place] [address], [place], [address], 07/09/2018 14:08:29 07/02/20 18 07/02/2018 drug scree n, urine tapentadol ur ql cfm <100 NG/mL >=100 NONE DETEC VIVI Not Available [facility] [address] [place] [address], [place], [address], 07/09/2018 14:08:29 07/02/20 18 07/02/2018 drug scree n, urine benzodiaz ur ql cfm <50 NG/mL >=50 NONE DETEC VIVI Not Available [facility] [address] [place] [address], [place], [address], 07/09/2018 14:08:29 07/02/20 18 07/02/2018 drug scree n, urine gabapentinpr egabalin ur ql cfm >=5 mcg/m L >=5 POSIT TIMOTEO Not Available [facility] [address] [place] [address], [address], 07/09/2018 14:08:29 07/02/20 18 07/02/2018 drug scree n, urine bze ur ql cfm <50 NG/mL >=50 NONE DETEC VIVI Not Available [facility] [address] [place] [address], [place], [address], 07/09/2018 14:08:29 07/02/20 18 07/02/2018 drug scree n, urine opiates ur ql cfm <100 NG/mL >=100 NONE DETEC VIVI Not Available [facility] [address] [place] [address], [place], [address], 07/09/2018 14:08:29 07/02/20 18 07/02/2018 drug scree n, urine 6mam ur ql cfm <10 NG/mL >=10 NONE DETEC VIVI Not Available [facility] [address] [place] [address], [place], [address], 07/09/2018 14:08:07/02/20 18 07/02/2018 drug scree n, urine methadone ur ql cfm >=200 NG/mL >=200 POSIT TIMOTEO Not Available [facility] [address] [place] [address], [place], [address], 07/09/2018 14:08:29 07/02/20 18 07/02/2018 drug scree n, urine meperidine ur ql cfm <100 NG/mL >=100 NONE DETEC VIVI Not Available [facility] [address] [place] [address], [place], [address], 07/09/2018 14:08:07/02/20 18 07/02/2018 drug scree n, urine fentanyl+nor fentanyl ur ql cfm <5 NG/mL >=5 NONE DETEC VIVI Not Available [facility] [address] [place] [address], [place], [address], 07/09/2018 14:08:07/02/20 18 07/02/2018 drug scree n, urine carisoprodol +meprob ur ql scn <200 NG/mL >=200 NONE DETEC VIVI Not Available [facility] [address] [place] [address], [place], [address], 07/09/2018 14:08:29 07/02/20 18 07/02/2018 drug scree n, urine tramadol ur ql cfm <100 NG/mL >=100 NONE DETEC VIVI Not Available [facility] [address] [place] [address], [place], [address], 07/09/2018 14:08:29 07/02/20 18 07/02/2018 drug scree n, urine cotinine ur ql cfm <125 NG/mL >=125 NONE DETEC VIVI Not Available [facility] [address] [place] [address], [place], [address], 07/09/2018 14:08:29 07/02/20 18 07/02/2018 drug scree n, urine pH ur 5.4 >= normal NOEMI L Not Available [facility] [address] [place] [address], [place], [address], 07/09/2018 14:08:29 07/02/20 18 07/02/2018 drug scree n, urine creat ur-mcnc 132 mg/dL >=2 normal NOEMI L Not Available [facility] [address] [place] [address], [place], [address], 07/09/2018 14:08:29 07/02/20 18 07/03/2018 drug scree n, urine pregabalin ur cfm-mcnc 106 mcg/m L >=5 POSIT TIMOTEO Not Available [facility] [address] [place] [address], [place], [address], 07/09/2018 14:08:29 07/02/20 18 07/03/2018 drug scree n, urine methadone ur cfm-mcnc 5750 NG/mL >=200 POSIT TIMOTEO Not Available [facility] [address] [place] [address], [place], [address], 07/09/2018 14:08:29 07/02/20 18 07/03/2018 drug scree n, urine EDDP ur cfm-mcnc 54699 NG/mL >=200 POSIT TIMOTEO Not Available [facility] [address] [place] [address], [place], [address], 07/09/2018 14:08:29 07/02/20 18 07/04/2018 drug scree n, urine ethyl glucuronide ur cfm-mcnc <500 NG/mL >=500 NONE DETEC VIVI Not Available [facility] [address] [place] [address], [place], [address], 07/09/2018 14:08:29 07/02/20 18 07/04/2018 drug scree n, urine ethyl sulfate ur cfm-mcnc <200 NG/mL >=200 NONE DETEC VIVI Not Available [facility] [address] [place] [address], [place], [address], 07/09/2018 14:08:29 07/02/20 18 07/02/2018 antid epres sants , quali tativ e, urine sn reuptake inhibitors ur ql >=5 NG/mL >=5 POSIT TIMOTEO Not Available [facility] [address] [place] [address], [place], [address], 07/09/2018 14:08:29 07/02/20 18 07/04/2018 antid epres sants , quali tativ e, urine odv ur cfm-mcnc 66214 NG/mL >=5 POSIT TIMOTEO Not Available [facility] [address] [place] [address], [place], [address], 07/09/2018 14:08:29 07/02/20 18 07/07/2018 antid epres sants , quali tativ e, urine venlafaxine ur cfm-mcnc 65435 NG/mL >=5 POSIT TIMOTEO Not Available [facility] [address] [place] [address], [place], [address], 07/09/2018 14:08:29 07/02/20 18 07/02/2018 drug scree n, urine cathinones synthetic ur ql scn <25 NG/mL >=25 NONE DETEC VIVI Not Available [facility] [address] [place] [address], [place], [address], 07/09/2018 14:08:28 07/02/20 18 07/02/2018 drug scree n, urine cannabinoids synthetic ql scn <2 NG/mL >=2 NONE DETEC VIVI Not Available [facility] [address] [place] [address], [place], [address], 07/09/2018 14:08:28 07/02/20 18 07/02/2018 drug- drug [...] albert de point es.(1 ) Not Available [facility] [address] [place] [address], [place], [address], 07/09/2018 14:08:27 07/02/20 18 07/02/2018 drug- drug inter actio n (ddi) drug-drug interaction profile >=5 NG/mL >=5 POSIT TIMOTEO Not Available [facility] [address] [place] [address], [place], [address], 07/09/2018 14:08:27 07/02/20 18 07/04/2018 drug- drug inter actio n (ddi) O-desmethylv enlafaxine ddi NG/mL >=5 POSIT TIMOTEO Not Available [facility] [address] [place] [address], [place], [address], 07/09/2018 14:08:27 07/02/20 18 07/04/2018 drug- drug inter actio n (ddi) venlafaxine (effexor) ddi NG/mL >=5 POSIT TIMOTEO Not Available [facility] [address] [place] [address], [place], [address], 07/09/2018 14:08:27 07/02/20 18 07/02/2018 drug scree n, urine venlafaxine ur CMP 25968 NG/mL >=5 normal COMPL IANT: Test resul t is consi stent and expec vivi with presc ribed drug. Not Available [facility] [address] [place] [address], [place], [address], 07/09/2018 14:08:27 07/02/20 18 07/02/2018 drug scree n, urine methadone ur CMP 99293 NG/mL >=200 normal COMPL IANT: Test resul t is consi stent and expec vivi with presc ribed drug. Not Available [facility] [address] [place] [address], [place], [address], 07/09/2018 14:08:27 07/02/20 18 07/02/2018 drug scree n, urine butalbital ur CMP 1380 NG/mL >=200 normal COMPL IANT: Test resul t is consi stent and expec vivi with presc ribed drug. Not Available [facility] [address] [place] [address], [address], 07/09/2018 14:08:27 07/02/20 18 07/02/2018 drug scree n, urine pregabalin ur CMP 106 mcg/m L >=5 normal COMPL IANT: Test resul t is consi stent and expec vivi with presc ribed drug. Not Available [facility] [address] [place] [address], [place], [address], 07/09/2018 14:08:27 07/02/20 18 07/02/2018 drug scree n, urine mextaxalone ur CMP <50 NG/mL >=50 abnormal NON-C OMPLI ANT: Test resul t indic ates patie nt may not be takin g drug presc ribed . Not Available [facility] [address] [place] [address], [place], [address], 07/09/2018 14:08:27 07/02/20 18 07/02/2018 drug scree n, urine hydrocodone ur CMP <100 NG/mL >=100 normal PRN - NOT PRESE NT: Test resul t is consi stent and expec vivi with presc ribed drug. Not Available [facility] [address] [place] [address], [place], [address], 07/09/2018 14:08:27 07/02/20 18 07/02/2018 drug scree n, urine zolpidem ur CMP <4 NG/mL >=4 normal PRN - NOT PRESE NT: Test resul t is consi stent and expec vivi with presc ribed drug. Not Available [facility] [address] [facility], [place], [address], 07/09/2018 14:08:27 Result Notes None recorded. Problems Name Problem SNOMED Code Status Onset Date Resolution Date Notes Provider Name and Address Organization Details Recorded Time Long-term drug therapy Active 018 MATTY BECKMAN [address] [place] [address] [address], [place], [address] , [place] [facility] 8 13:45:43 Migraine 21085392 Active 018 MATTY BECKMAN [address] [place] [address] [address], [place], [address] , [place] [facility] 8 13:45:52 Neck pain 45982058 Active 018 MATTY BECKMAN [address] [place] [address] [address], [place], [address] , [place] [facility] 8 13:46:15 Problem Notes None recorded. Procedures Surgical History Date Name Laterality Status Provider Name and Address Organization Details Recorded Time 12/01/19 19 [place] [address] [place] [address] [address], [place], [address], [place] [facility] 12/01/2018 20:04:13 11/24/19 19 EWatson 25g Cervical Facet Injection completed Jennifer Quintana MD [facility] [address] [address], [place], [address], [place] [facility] 11/24/2018 13:09:09 08/27/20 18 [place] [address] [place] [address] [address], [place], [address], [place] [facility] 09/16/2018 16:50:17 06/11/20 18 EWatson 25g Cervical Facet Injection completed Jennifer Quintana MD [address] [address] [address], [place], [address], [place] [facility] 06/11/2018 10:00:33 05/27/20 18 Botox completed Jennifer Quintana MD [address] [place] [address] [address], [place], [address], [place] [facility] 05/28/2018 14:24:07 10/07/19 18 Left Foot completed Salomon Apodaca MD [address] [place] [address] [address], [place], [address], [place] [facility] 05/12/2018 15:01:34 10/07/19 17 Shoulder arthroscopy-left completed Salomon Apodaca MD [address] [place] [address] [address], [place], [address], [place] [facility] 05/12/2018 15:01:34 10/07/19 14 Left Total Knee Arthroplasty completed Salomon Apodaca MD [address] [place] [address] [address], [place], [address], [place] [facility] 05/12/2018 15:01:34 10/07/19 13 Left Hand/Wrist Surgery completed Salomon Apodaca MD [address] [place] [address] [address], [place], [address], [place] [facility] 05/12/2018 15:01:34 10/07/19 13 Right Hand/Wrist Surgery completed Salomon Apodaca MD [address] [place] [address] [address], [place], [address], [place] [facility] 05/12/2018 15:01:34 10/07/19 12 Right Knee Arthroplasty completed Salomon Apodaca MD [address] [place] [address] [address], [place], [address], [place] [facility] 05/12/2018 15:01:34 10/07/19 10 Hysterectomy completed Salomon Apodaca MD [address] [place] [address] [address], [place], [address], [place] [facility] 05/12/2018 15:01:34 10/07/18 92 Other completed Salomon Apodaca MD [address] [place] [address] [address], [place], [address], [place] [facility] 05/12/2018 15:01:34 10/07/18 81 Gallbladder Surgery completed Salomon Apodaca MD [address] [place] [address] [address], [place], [address], [place] [facility] 05/12/2018 15:01:34 Imaging Results None recorded. Procedure Notes None recorded. Medical Equipment None Reported. Allergies Allergen ID Allergen Name Allergen Category Reaction Reaction Severity Criticality Documentation Date Start Date Code Code System Note Provider Name and Address Organization Details Recorded Time 51391 fentanyl medicatio n diarrhea moderate Not available 05/12/2018 4337 Vin Apodaca MD [address] [place] [address] [address], [place], [address], [facility] 8 15:01:32 24522 latex environme nt,medica tion itching moderate Not available 05/12/2018 06030 91 Vin Apodaca MD [address] [place] [address] [address] [facility] [address], [place], [address], [facility] 8 15:01:32 40631 Substance with sulfonami de structure and antibacte rial mechanism of action (substanc e) medicatio n eye redness moderate Not available 05/12/2018 07729 8003 STEPHANY Apodaca MD [address] [place] [address] [address], [place], [address], [facility] 8 15:01:32 08214 Product containin g penicilli n (product) medicatio n rash moderate Not available 05/12/2018 47237 8001 STEPHANY Apodaca MD [address] [place] [address] [address], [place], [address], [facility] - [facility] 8 15:01:32 Medications Name Sig Start Date Stop Date [...] Avai lable promethazin e 25 mg tablet 05/12 completed [...] Not Available Not Available Not Avai lable Shingrix (PF) 50 mcg/0.5 mL intramuscul ar suspension, kit active Not Available Not Available Not Available Fluzone Quad (PF) 60 mcg(15 mcgx4)/0.5 mL intramuscul ar syringe active Not Available Not Available N ot Available Vitals Date Recorded Body height Provider Name an d Address Organization Details Last Updated DateTime 07/02/2018 160.02 cm Pam Gómezartz [place] [facility] 8 09:56:40 Date Recorded Body height Provider Name an d Address Organization Details Last Updated DateTime 08/27/2018 160.02 cm Pam Kilgore [place] [facility] 8 11:13:31 Date Recorded Body height Provider Name an d Address Organization Details Last Updated DateTime 11/17/2018 160.02 cm Summer Carlo [place] [facility] 9 13:04:40 Date Recorded Body height Heart rate Systolic blood pressure Diastolic blood pressure Provider Name and Address Organization Details Last Updated DateTime 11/24/2018 160.02 cm 78 /min 125 mm[Hg] 76 mm[Hg] Patricia Mannie [place] [facility] 11/24/2018 12:57:48 Social History Question Answer Notes LastModified by Organizat ion Details LastModified Time Tobacco Smoking Status Never Smoker Salomon Apodaca MD [address] [address] [address], [place], [address], [facility] 05/12/2018 15:01:33 What Is Your [...] SNOMED-CT Code Diagnosis ICD10 Code Diagnosis Note [id number] Salomon Apodaca MD [facility] [address] [place] [address] 05/12/2018 14:28:23 05/15/2018 14:40:31 Neck pain 88631083 M54.2 We discussed the nature of the [...] during the next visit. Cervical spondylosis 387 142455 M47.812 Degenerati on of cervical intervertebral disc 67435376 M50.30 [id number] [facility] [address] [place] [address] 05/27/2018 14:25:39 05/27/2018 16:05:07 Refractory migraine without aura 103603768 G43.719 114016 [facility] [address] [facility] [place] [address] 06/02/2018 08:59:35 06/02/2018 13:19:37 Neck pain 69701840 M54.2 X-ray findings/i nterpretat ion: {{Mild* Mo [...] discussed and described above. Cervical spondylosis 387 048720 M47.812 Degenerati on of cervical intervertebral disc 89394330 M50.30 [id number] Jennifer Quintana MD [facility] [address] [place] [address] 06/11/2018 09:08:20 06/12/2018 12:20:07 Cervical spondylosis without myelopathy 101500720 M47.812 137070 MATTY BECKMAN [facility] [address] [place] [address] 07/02/2018 09:47:24 07/02/2018 11:51:45 Long-term drug therapy 368911613 Z79.899 Migraine 57803171 G43.90 9 Neck pain 75787187 M54.2 216461 Jennifer Quintana MD [facility] [address] [place] [address] 08/27/2018 11:08:46 09/01/2018 15:47:39 Refractory migraine without aura 632972334 G43.719 287501 MATTY BECKMAN [facility] [address] [place] [address] 11/17/2018 12:56:36 11/17/2018 13:34:57 Neck pain 40355183 M54.2 Migraine 92507679 G43.90 9 [id number] Jennifer Quintana MD [facility] [address] [place] [address] 11/24/2018 12:49:46 11/25/2018 16:03:41 Cervical spondylosis 052380634 M47.812 639202 Jennifer Quintana MD [facility] [address] [place] [address] 12/01/2018 12:29:59 12/01/2018 13:23:33 Refractory migraine without aura 292616493 G43.719 Health Concerns Section Related Observation LastModified by Organization Detai ls LastModified Time None Recorded Concern Status LastModified by Organization Details LastModified Time None Recorded Advance Directives Directive None Recorded Payers Encounter Date Sequence Insurance Name Policy Number Policy Ramirez Covered Member ID Ramirez Member ID Guarantor Name 07/02/2018 1 [place]AREEM MASSEY Laura Hdz [id number] Laura Hdz 07/02/2018 2 [place] [employer] [employer] 104 Luara Hdz [id number] Laura Hdz 08/27/2018 1 [place] BRYSON Hdz [id number] Laura Hdz 08/27/2018 2 [place] 104 Laura Hdz [id number] Laura Hdz 11/17/2018 1 [place] H[place] [id number] Laura Hdz 11/17/2018 2 [facility] 104 Laura Hdz [id number] Laura Hdz 11/24/2018 1 [place] H[place] [id number] Laura Hdz 11/24/2018 2 [facility]: [employer]AL EMPLOYEE PROGRAM 104 Laura Hdz [id number] Laura Hdz 12/01/2018 1 [place]ARE[place] Hdz [id number] Laura Hdz 12/01/2018 2 [facility]: [employer]EE [employer]GRAM 104 Laura Hdz [id number] Laura Hdz Notes Date Note Type Note Provider Name and Address Organization Details Recorded Time 8 text/html Pain Management Follow-UpReported bypatient.Current level of painMild pain: 10/16 to 2 Location:neck Outcome of Treatmentshort term relief UDT/SOAP:SOAP: [...] or functional issues. Jennifer Quintana MD [address] [address] [address], [place], [address], [facility] 07/02/2018 16:21:18 8 text/html Pt is her for Botox for migraines. no side effect from the previous injection or facial asymmetry. Reports that her headaches are at least 50% better. Continues to have neck pain without radiation. Jennifer Quintana MD [address] [address] [address], [place], [address], [facility] 09/16/2018 16:50:49 02/11/201 9 text/html Pain Management Follow-UpReported bypatient.Current level of painMild pain: 1/10 to 2/10 Location:neck Current Home Exercise Programstrengthen; stretch Outcome [...] or functional issues. Jennifer Quintana MD [address] [address] [address], [place], [address], [employer] [facility] 11/18/2018 08:49:06 9 text/html Last MRI?-05/31/2018No blood thinners past 7 days?-noNo antibiotics?-noDriver Present?-no Jennifer Quintana MD [address] [address] [address], [place], [address], [place] [employer] [facility] 11/24/2018 13:20:49 9 text/html patient presents today for Botox injection. Her headaches diminish well for 2 months, then slowly go back to 3-4 headaches per week. Denies side effects from Botox, no dry eyes or dysphasia. Continues on pain medication. No recent fevers or infection. Jennifer Quintana MD [address] [address] [address], [place], [address], [place] [employer] [facility] 12/01/2018 20:04:41 OBGyn Episode No OBEpisode recorded.
== END 2025-02-03 10:23 | disposition home or self-care (01) ==
LOC: HO.PMC 09:55
PROVIDERS: PCP Internal Medicine; Visit Provider Internal Medicine
DX: M79.18 Myalgia, other site (principal)
CPT/HCPCS: 20553

== ENCOUNTER → 2025-02-03 09:54 | Outpatient (BNVA) | payer MEDICARE, BC, SELFPAY | PROVIDERS: PCP Internal Medicine; Visit Provider Internal Medicine | DX: M79.18 Myalgia, other site (principal) | CPT/HCPCS: 20553 ==

== ENCOUNTER 2025-02-23 19:34 | Emergency (ER) | payer MEDICARE, BC, SELFPAY ==
--- NOTE | ~2025-02-23 | CT_ITS ---
CLINICAL HISTORY: RLQ pain, TTP, urinary frequency CT abdomen and pelvis with contrast Comparison: CR/IL/SR - XR HIP RT MIN 2V - 12/03/24 11:28 EST Findings: Linear atelectasis in the lingula. Cholecystectomy. No biliary duct dilatation. Mild fatty atrophy of the uncinate process of the pancreas. Liver, spleen, and adrenal glands are within normal limits. No hydronephrosis. Symmetric contrast enhancement of the kidneys. No bowel obstruction, pneumatosis or pneumoperitoneum. Appendix is not visualized but there are no pericecal inflammatory changes. The cecum is in the right mid abdomen. Aortic atherosclerosis. No aneurysm. Hysterectomy. Urinary bladder is underdistended. Posterior lumbar fusion. Tarlov cysts in the sacrum. No acute osseous findings. IMPRESSION: 1. No acute intraabdominal or pelvic pathology. This document has been electronically signed by: Luis Carlos Cho MD on 02/24/2025 00:42:28
[2025-02-23 19:39] VITALS: BP 128/60; PULSE 76; RESP 16; TEMP 36.7; O2SAT 97; BMI 38.4
--- NOTE | 2025-02-23 19:45 | ED_ITS ---
HPI - Abdominal Pain General Chief Complaint: Abdominal Pain Stated Complaint: Pain Right Abd Time Seen by Provider: 02/23/25 22:57 Source: patient Mode of arrival: ambulatory Limitations: no limitations History of Present Illness ED Provider: jhon rosario np HPI narrative: Patient is a 69-year-old female who presents emergency department for evaluation of right lower quadrant abdominal pain. She reports intermittent over the past 3 days with intermittent radiation into the back. She admits that over the past couple of weeks she had a few whether occurrences of a similar pain. Today she has noted some urinary frequency associated with this she however denies dysuria, urgency or hesitancy, hematuria. Denies associated fevers, chills, nausea, vomiting, diarrhea, constipation recent hematochezia or melena. She denies pelvic pain or abnormal vaginal discharge. Denies history of nephrolithiasis. Has had a previous cholecystectomy but no further abdominal surgeries. Denies history of similar pain in the past. Related Data Home Medications ?Medication ?Instructions ?Recorded ?Confirmed loratadine 10 mg tablet (Claritin) 10 mg PO BEDTIME allergies 01/01/24 02/03/25 calcium carbonate (Calcium 600) 600 mg PO DAILY 06/30/24 02/03/25 cholecalciferol (vitamin D3) 25 25 mcg PO DAILY 06/30/24 02/03/25 mcg (1,000 unit) tablet (Vitamin D3) [id number]-wzdklmev-ampghp 1 tab PO DAILY 06/30/24 02/03/25 tablet (Multivitamin 50 Plus tablet) omeprazole 20 mg capsule,delayed 20 mg PO DAILY@0630 06/30/24 02/03/25 release Previous Rx's ?Medication ?Instructions ?Recorded metaxalone 800 mg tablet 800 mg PO TID PRN for muscle spasm 08/21/24 #90 tabs ropinirole 1 mg tablet 1 mg PO BEDTIME 90 days #90 caps 09/10/24 atorvastatin 10 mg tablet 10 mg PO DAILY 90 days #90 tabs 09/23/24 lidocaine 5 % topical patch 1 patch topical DAILY #30 patches 09/28/24 venlafaxine 150 mg tablet,extended 150 mg PO DAILY #30 tabs 01/01/25 release 24 hr lorazepam 0.5 mg tablet 0.5 mg PO DAILY PRN anxiety 30 01/11/25 days #30 tabs [id number]-cimlxby-xsyuayoo 50 1 cap PO Q6-8H PRN headache 30 01/20/25 mg-325 mg-40 mg capsule days #120 caps sumatriptan succinate 100 mg tablet 100 mg PO DAILY PRN migraine 01/20/25 headache 30 days #10 tabs albuterol sulfate 90 mcg/actuation 2 puff inhalation Q6H PRN 02/01/25 aerosol inhaler shortness of breath or wheezing or cough #8.5 grams erythromycin 5 mg/gram (0.5 %) eye 0.5 inch ophthalmic (eye) QID #7 02/01/25 ointment grams olopatadine 0.7 % eye drops 1 drp ophthalmic (eye) Q24H PRN 02/01/25 (Pataday Once Daily Relief) itching #5 mL prednisone 20 mg tablet 20 mg PO DAILY 3 days #3 tabs 02/05/25 pregabalin 75 mg capsule 75 mg PO BID 30 days #60 caps 02/22/25 tramadol 50 mg tablet 100 mg (2 x 50 mg) PO Q6H PRN pain 02/22/25 48 days #240 tabs zolpidem 12.5 mg tablet,extended 12.5 mg PO BEDTIME PRN sleep 30 02/22/25 release,multiphase days #30 tabs fluticasone propionate 50 1 spray intranasal DAILY #16 grams 02/23/25 mcg/actuation nasal spray,suspension Allergies Allergy/AdvReac Type Severity Reaction Status Date / Time Sulfa (Sulfonamide Allergy Severe ANAPHYLAXIS Verified 02/23/25 19:41 Antibiotics) [SULFA (SULFONAMIDE ANTIBIOTICS)] Penicillins [PENICILLINS] Allergy Mild RASH Verified 02/23/25 19:41 latex AdvReac Severe Rash Verified 02/23/25 19:41 doxycycline AdvReac Mild Abdominal Verified 02/23/25 19:41 Pain Review of Systems Review of Systems Yes all other systems are reviewed and are negative PMFSH Past Medical History Attestation statement: The following information was validated with the patient. Source: old records reviewed Medical History Degenerative joint disease of shoulder, right Osteoarthritis Arthritis Back pain Celiac sprue GERD (gastroesophageal reflux disease) Anxiety Numbness Sepsis Sleep apnea Sacroiliac dysfunction Migraine Burn injury Sinusitis chronic, frontal Osteopenia Obesity (BMI 30-39.9) Major depression, recurrent Insomnia Primary osteoarthritis Urinary frequency Mitral valve prolapse Allergic rhinitis Gastritis Pure hypercholesterolemia Restless leg syndrome Cervicalgia Lumbar degenerative disc disease Fibromyalgia Surgical History History of lumbar spinal fusion History of bilateral knee arthroplasty Hx of eye surgery History of cataract surgery History of carpal tunnel release History of bunionectomy S/P GINGER-BSO (total abdominal hysterectomy and bilateral salpingo-oophorectomy) History of repair of rotator cuff History of arthroscopy of both knees Hx of cholecystectomy Hx of endoscopy History of colonoscopy Family History Family History Father History of cancer Mother History of cancer History of high blood pressure Hx of diabetes mellitus Social History Social History Household Members: Significant Other Household Members Other:: DAUGHTER AND HER FAMILY Housing: House Are you a primary animal care specialist to a significant other at home: No Do you presently have visiting nurse or other home services: No Alcohol intake: current Alcohol intake frequency: holidays/special occasions only Patient Tobacco Use Status: Never used Tobacco Tobacco use type: Cigarette Smoked in Last 30 Days: No e-Cigarette/Vaping Use: Never Used Second Hand Smoke Exposure: Yes Use of substances other than those prescribed or required for medical reasons: No Advance Directives: No Advance Directives Information Provided: No Do you have a plan to hurt others: No Plan service: No Current occupational status: retired Cognitive needs: No Hearing needs: No Vision needs: Yes Physical Exam ED Vital Signs: Vital Signs - 24 hr 02/23/25 19:39 Temperature 98.1 F Pulse Rate 76 Respiratory Rate 16 Blood Pressure 128/60 Pulse Oximetry 97 Oxygen Delivery Method Room Air BMI result Body Mass Index 38.4 Appearance: Alert.?Oriented to person, place and time. No acute distress.?Normal affect.?? Neck: Normal inspection.? Neck supple.?? CVS: Heart sounds normal. Normal heart rate and rhythm.? Pulses normal.?? Respiratory: No respiratory distress.? Lung sounds clear to auscultation bilaterally?? Abdomen: Soft with right lower quadrant tenderness upon palpation. Mild rebound tenderness at McBurney's point. Negative psoas sign. Negative Rovsing sign. Negative Garcia sign. No CVAT. Normoactive bowel sounds. No pulsatile mass.?? Skin: Skin warm and dry.? Normal skin color.? Extremities: No lower extremity edema.? Neuro: Moves all extremities spontaneously. Sensation intact bilaterally. Ambulates with normal steady gait. Course Course Course Narrative: 02/23/251945 MATTY Espinosa This is a Rapid Medical Examination (RME) performed by Dede Ashley PA-C in triage. Full HPI, ROS, assessment and treatment plan per primary provider in the Main ED. Hx: 69 yo F here w/ RLQ pain intermittent x3 days. sharp w/ radiation to back. no N/V/D. admits to inc urination. no other urinary sx. no fever/chills. PE/vitals: well appearing Plan: labs, UA Reevaluation(s) Reevaluation #1: CBC is without leukocytosis anemia or thrombocytopenia. No electrolyte derangement. No YANET. LFTs and lipase are unremarkable. This is without evidence of infection or microscopic hematuria. CT of the abdomen and pelvis without acute intra-abdominal pathology, although the appendix is not directly visualized there was no pericecal inflammatory changes, no evidence of renal or ureteral calculi. Pain has improved since his increased severity earlier. Advised close outpatient follow-up with your primary care doctor within the next few days, strict return precautions and worrisome signs and symptoms that would warrant re-evaluation. We did review the possibility for potentially a passed kidney stone, I see no residual perinephric inflammatory changes hydronephrosis to suggest a large stone however. Medical Decision Making Medical Decision Making MDM Narrative: Patient is a 69-year-old female with past medical history of osteoarthritis, celiac sprue, GERD, anxiety, SI joint dysfunction, DOLLY, migraine, obesity, depression, insomnia, allergic rhinitis, mitral valve prolapse, hypercholesterolemia, restless legs syndrome, fibromyalgia, lumbar DJD who presents emergency department for evaluation of right lower quadrant abdominal pain and urinary frequency as per HPI. On examination she is without rigidity or guarding, no signs of systemic toxicity she is afebrile without tachycardia, no hypotension. On examination she does have some mild right lower quadrant abdominal tenderness upon palpation, mild rebound tenderness at McBurney's point. No CVA tenderness. Will obtain CT of the abdomen and pelvis to evaluate for possible appendicitis, renal colic secondary to pyelonephritis/obstructive ureteral calculi, or hydronephrosis. No tenderness of the left lower quadrant nor associated nausea, vomiting, diarrhea, constipation, hematochezia or melena to suggest diverticulitis or GI bleed. No appreciable hernia to suggest strangulation/incarceration. Lower suspicion for bowel obstruction. No distention or rigidity to suggest GI perforation. Differential Diagnosis Differential Diagnoses: The differential diagnosis associated with the presentation includes (See narrative above) Admission/Observation Consideration of admission/observation: Escalation of care including admission/observation considered (See narrative above ) Lab Data MDM Lab Attestation statement: I reviewed the patient's lab results. (See course narrative) 02/23/25 20:09 02/23/25 20:09 Labs: Lab Results 02/23/25 02/23/25 Range/Units 20:09 23:22 WBC 7.2 (4.8-10.8) X10*3/uL RBC 4.04 L (4.20-5.50) X10*6/uL Hgb 12.6 (12.0-16.0) g/dl Hct 37.8 (37.0-47.0) % MCV 93.6 (80.0-98.0) fL MCH 31.2 (27.0-33.0) pg MCHC 33.3 (31.0-35.0) g/dl RDW 14.0 (11.0-16.0) % Plt Count 320 (160-400) X10*3/uL MPV 9.3 L (9.4-12.3) fL Immature Gran % (Auto) 0.3 (0.0-0.4) % Neut % (Auto) 46.9 (45-73) % Lymph % (Auto) 38.7 (20-40) % Beauregard % (Auto) 7.7 (2-11) % Eos % (Auto) 5.4 H (0-4) % Baso % (Auto) 1.0 (0-2) % Lymph # (Auto) 2.8 (1.2-4.9) X10*3/uL Beauregard # (Auto) 0.6 (0.1-1.2) X10*3/uL Eos # (Auto) 0.4 (0.0-0.4) X10*3/uL Baso # (Auto) 0.1 (0.0-0.2) X10*3/uL Abs Immat Gran (auto) 0.02 (0.00-0.03) X10*3/uL Absolute Neuts (auto) 3.4 (2.0-8.3) x10*3/uL Absolute Nucleated RBC 0.000 (0.0-0.012) X10*3/uL Nucleated RBC % (auto) 0.0 (0.0-0.2) /100WBC Sodium 142 (135-145) mmol/L Potassium 4.7 (3.3-5.1) mmol/L Chloride 106 (96-108) mmol/L Carbon Dioxide 29 (22-29) mmol/L Anion Gap 12 (12-20) BUN 16 (9-16) mg/dL Creatinine 0.94 (0.5-1.4) mg/dL Estim Creat Clear Calc 62.5 Estimated GFR 59 Random Glucose 97 (60-115) mg/dL Calcium 8.8 D (8.4-10.2) mg/dL Magnesium 2.1 (1.6-2.6) mg/dL Total Bilirubin 0.2 (0.0-1.0) mg/dL AST 30 (5-31) U/L ALT 30 (0-31) U/L Alkaline Phosphatase 101 (39-117) U/L Total Protein 7.1 (6.5-8.0) g/dL Albumin 4.0 (3.5-5.0) g/dL Lipase 15 (8-78) U/L Urine Color Yellow Urine Appearance Clear Urine pH 5.5 (5.0-9.0) Ur Specific Oxly 1.020 (1.005-1.025) Urine Protein Negative (Neg-Trace) mg/dL Urine Glucose (UA) Negative (Negative) mg/dL Urine Ketones Negative (Negative) mg/dL Urine Blood Negative (Negative) Urine Nitrite Negative (Negative) Ur Leukocyte Esterase Negative (Negative) Radiology Impression Discussion of test interpretation with radiology: I have reviewed the radiologist's reading. Radiologist Impression: CT abdomen and pelvis with contrast Comparison: CR/IA/SR - XR HIP RT MIN 2V - 12/03/24 11:28 EST Findings: Linear atelectasis in the lingula. Cholecystectomy. No biliary duct dilatation. Mild fatty atrophy of the uncinate process of the pancreas. Liver, spleen, and adrenal glands are within normal limits. No hydronephrosis. Symmetric contrast enhancement of the kidneys. No bowel obstruction, pneumatosis or pneumoperitoneum. Appendix is not visualized but there are no pericecal inflammatory changes. The cecum is in the right mid abdomen. Aortic atherosclerosis. No aneurysm. Hysterectomy. Urinary bladder is underdistended. Posterior lumbar fusion. Tarlov cysts in the sacrum. No acute osseous findings. IMPRESSION: 1. No acute intraabdominal or pelvic pathology. External Record Review External record reviewed: Outpatient record Chronic Conditions Patient?s care impacted by: Other (See narrative above) Medications Administered Discontinued Medications Generic Name Dose Route Start Last Admin Trade Name Freq PRN Reason Stop Dose Admin Sodium Chloride 1,000 mls @ 999 mls/hr 02/23/25 23:30 02/23/25 23:49 Ns IV 02/24/25 00:30 999 mls/hr .Q1H1M JEROME Administration Iohexol 85 ml 02/24/25 00:02 02/24/25 00:02 Iohexol 350 Mg/Ml 100 Ml Infus..Btl IV 02/24/25 00:03 85 ml ONCE ONE Administration Discharge Plan Discharge Clinical Impression: Abdominal pain Patient Disposition: Home, Self-Care Instructions: Abdominal Pain (ED) Additional Instructions: Be sure to rest over the next few days. Be sure that you are staying well hydrated. Follow-up with your primary care doctor within 3 days. Return with any new or worsening symptoms or concerns. You can take ibuprofen 200 mg, 3 tablets (600mg) every 6-8 hours as needed for pain, in addition to Tylenol 500 mg, 2 tablets (1,000mg) every 4-6 hours as needed for pain, but not to exceed 3 doses daily (3,000mg).? Prescriptions: No Action metaxalone 800 mg tablet 800 mg PO TID PRN (Reason: for muscle spasm) Qty: 90 2RF ropinirole 1 mg tablet 1 mg PO BEDTIME 90 Days Qty: 90 1RF atorvastatin 10 mg tablet 10 mg PO DAILY 90 Days Qty: 90 1RF lidocaine 5 % adhesive patch,medicated 1 patch topical DAILY Qty: 30 3RF venlafaxine 150 mg tablet extended release 24hr 150 mg PO DAILY Qty: 30 3RF lorazepam 0.5 mg tablet 0.5 mg PO DAILY PRN (Reason: anxiety) 30 Days Qty: 30 0RF sumatriptan succinate 100 mg tablet 100 mg PO DAILY PRN (Reason: migraine headache) 30 Days Qty: 10 3RF dnppmgpmrw-ibbkkxj-rxutndei 50-325-40 mg capsule 1 cap PO Q6-8H PRN (Reason: headache) 30 Days Qty: 120 0RF prednisone 20 mg tablet 20 mg PO DAILY 3 Days Qty: 3 0RF tramadol 50 mg tablet 100 mg PO Q6H PRN (Reason: pain) 48 Days Qty: 240 0RF pregabalin 75 mg capsule 75 mg PO BID 30 Days Qty: 60 1RF zolpidem 12.5 mg tablet,ext release multiphase 12.5 mg PO BEDTIME PRN (Reason: sleep) 30 Days Qty: 30 0RF fluticasone propionate 50 mcg/actuation spray,suspension 1 spray intranasal DAILY Qty: 16 1RF loratadine [Claritin] 10 mg Tablet 10 mg PO BEDTIME calcium carbonate [Calcium 600] 600 mg calcium (1,500 mg) Tablet 600 mg PO DAILY Multivitamin 50 Plus Tablet 1 tab PO DAILY cholecalciferol (vitamin D3) [Vitamin D3] 25 mcg (1,000 unit) Tablet 25 mcg PO DAILY omeprazole 20 mg Capsule,Delayed Release(Dr/Ec) 20 mg PO DAILY@0630 Pataday Once Daily Relief 0.7 % drops 1 drp ophthalmic (eye) Q24H PRN (Reason: itching) Qty: 5 0RF erythromycin 5 mg/gram (0.5 %) ointment 0.5 inch ophthalmic (eye) QID Qty: 7 0RF Rx Instructions: Apply to each eye 4 times a day while awake albuterol sulfate 90 mcg/actuation HFA aerosol inhaler 2 puff inhalation Q6H PRN (Reason: shortness of breath or wheezing or cough) Qty: 8.5 0RF Referrals: Osmany Browning MD [Primary Care Provider] - Print Language: [place]
[2025-02-23 20:14] LABS: Basophils Absolute Auto 0.1 X10*3/uL (0.0-0.2); Eosinophils Absolute Auto 0.4 X10*3/uL (0.0-0.4); Eosinophils Percent Auto 5.4 % (0-4); Hematocrit 37.8 % (37.0-47.0); Hemoglobin 12.6 g/dl (12.0-16.0); Imm Gran Abs Auto 0.02 X10*3/uL (0.00-0.03); Imm Gran Pct Auto 0.3 % (0.0-0.4); Lymphocytes Absolute Auto 2.8 X10*3/uL (1.2-4.9); Lymphocytes Percent Auto 38.7 % (20-40); MANUAL DIFF FLAG NO; Mean Corpuscular HGB Conc 33.3 g/dl (31.0-35.0); Mean Corpuscular Hemoglobin 31.2 pg (27.0-33.0); Mean Corpuscular Volume 93.6 fL (80.0-98.0); Mean Platelet Volume 9.3 fL (9.4-12.3); Monocytes Absolute Auto 0.6 X10*3/uL (0.1-1.2); Monocytes Percent Auto 7.7 % (2-11); Neutrophils Absolute Auto 3.4 x10*3/uL (2.0-8.3); Neutrophils Percent Auto 46.9 % (45-73); Platelet Count 320 X10*3/uL (160-400); Red Blood Count 4.04 X10*6/uL (4.20-5.50); White Blood Count 7.2 X10*3/uL (4.8-10.8)
[2025-02-23 20:29] LABS: Alanine Aminotransferase 30 U/L (0-31); Alkaline Phosphatase 101 U/L (39-117); Anion Gap 12 (12-20); Aspartate Amino Transferase 30 U/L (5-31); Bilirubin Total 0.2 mg/dL (0.0-1.0); Blood Urea Nitrogen 16 mg/dL (9-16); Calcium 8.8 mg/dL (8.4-10.2); Carbon Dioxide 29 mmol/L (22-29); Chloride 106 mmol/L (96-108); Creatinine Clr Calc Pharmacy 62.5; Estimated Glomerular Filt Rate 59; Glucose Random 97 mg/dL (60-115); Lipase 15 U/L (8-78); Magnesium 2.1 mg/dL (1.6-2.6); Potassium 4.7 mmol/L (3.3-5.1); Sodium 142 mmol/L (135-145); Total Protein 7.1 g/dL (6.5-8.0)
--- OUTSIDE RECORDS SUMMARY | 2025-02-23 22:53 | XMS_ITS | Data Portability ---
Author Organization [place] [facility], [facility] Address [address] [facility] [address] [place] [address] Care Team Providers Care Title Lawyer Name Role Phone [facility] Primary Care Provider Assessment No assessment recorded. Plan of Treatment Reminders Order Date Submit Date Provider Last Modified By Organization Details Last Modified Time Details Appointments None recorded. Lab urinalysis , dipstick 2017 [facility]18 [facility] [address] [facility] [facility] [address], [address], [place], [address], 8 16:24:52 Referral None recorded. Procedures facet joint injection, cervical (PROC) - [id number] 2018 019 [email or web address] Not available 9 09:52:02 Surgeries None recorded. Imaging None recorded. Medication Orders None recorded. Patient TargetsNo targets recorded. Patient Instructions Encounter Date Encounter Id Patient Instructions Last Modified By Organization Details Last Modified Time 07/02/2018 [id number] Continue current medications. Routine drug screens. Follow-up [...] this document. Not available 07/02/2018 13:46:50 11/17/2018 [id number] Discussed the option of repeating C4-5 and [...] NG/mL >=5 NONE DETEC VIVI Not Available [facility] [address] [place] [address], [address], 07/09/2018 14:08:31 07/02/20 18 07/02/2018 katerin turat es, QL, scree n, urine barbiturates ur ql cfm >=200 NG/mL >=200 POSIT TIMOTEO Not Available [facility] [address] [place] [address], [place], [address], 07/09/2018 14:08:31 07/02/20 18 07/05/2018 katerin turat es, QL, scree n, urine butalbital ur cfm-mcnc 1380 NG/mL >=200 POSIT TIMOTEO Not Available [facility] [address] [place] [address], [place], [address], 07/09/2018 14:08:31 07/02/20 18 07/02/2018 drug scree n, urine sedative hypnotics ur ql cfm <4 NG/mL >=4 NONE DETEC VIVI Not Available [facility] [address] [place] [address], [address], 07/09/2018 14:08:30 07/02/20 18 07/02/2018 metax alone , QN, urine metaxalone ur ql cfm <50 NG/mL >=50 NONE DETEC VIVI Not Available [facility] [address] [place] [address], [address], 07/09/2018 14:08:30 07/02/20 18 07/02/2018 drug scree n, urine buprenorphin e ur ql cfm <1 NG/mL >=1 NONE DETEC VIVI Not Available [facility] [address] [place] [address], [place], [address], 07/09/2018 14:08:29 07/02/20 18 07/02/2018 drug scree n, urine alcohol metabolites ur ql cfm <200 NG/mL >=200 NONE DETEC VIVI Not Available [facility] [address] [place] [address], [place], [address], 07/09/2018 14:08:29 07/02/20 18 07/02/2018 drug scree n, urine amphetamines ur ql cfm <0 NG/mL >=0 NONE DETEC VIVI Not Available [facility] [address] [place] [address], [place], [address], 07/09/2018 14:08:29 07/02/20 18 07/02/2018 drug scree n, urine tapentadol ur ql cfm <100 NG/mL >=100 NONE DETEC VIVI Not Available [facility] [address] [place] [address], [place], [address], 07/09/2018 14:08:29 07/02/20 18 07/02/2018 drug scree n, urine benzodiaz ur ql cfm <50 NG/mL >=50 NONE DETEC VIVI Not Available [facility] [address] [place] [address], [place], [address], 07/09/2018 14:08:29 07/02/20 18 07/02/2018 drug scree n, urine gabapentinpr egabalin ur ql cfm >=5 mcg/m L >=5 POSIT TIMOTEO Not Available [facility] [address] [place] [address], [address], 07/09/2018 14:08:29 07/02/20 18 07/02/2018 drug scree n, urine bze ur ql cfm <50 NG/mL >=50 NONE DETEC VIVI Not Available [facility] [address] [place] [address], [place], [address], 07/09/2018 14:08:29 07/02/20 18 07/02/2018 drug scree n, urine opiates ur ql cfm <100 NG/mL >=100 NONE DETEC VIVI Not Available [facility] [address] [place] [address], [place], [address], 07/09/2018 14:08:29 07/02/20 18 07/02/2018 drug scree n, urine 6mam ur ql cfm <10 NG/mL >=10 NONE DETEC VIVI Not Available [facility] [address] [place] [address], [place], [address], 07/09/2018 14:08:07/02/20 18 07/02/2018 drug scree n, urine methadone ur ql cfm >=200 NG/mL >=200 POSIT TIMOTEO Not Available [facility] [address] [place] [address], [place], [address], 07/09/2018 14:08:29 07/02/20 18 07/02/2018 drug scree n, urine meperidine ur ql cfm <100 NG/mL >=100 NONE DETEC VIVI Not Available [facility] [address] [place] [address], [place], [address], 07/09/2018 14:08:07/02/20 18 07/02/2018 drug scree n, urine fentanyl+nor fentanyl ur ql cfm <5 NG/mL >=5 NONE DETEC VIVI Not Available [facility] [address] [place] [address], [place], [address], 07/09/2018 14:08:07/02/20 18 07/02/2018 drug scree n, urine carisoprodol +meprob ur ql scn <200 NG/mL >=200 NONE DETEC VIVI Not Available [facility] [address] [place] [address], [place], [address], 07/09/2018 14:08:29 07/02/20 18 07/02/2018 drug scree n, urine tramadol ur ql cfm <100 NG/mL >=100 NONE DETEC VIVI Not Available [facility] [address] [place] [address], [place], [address], 07/09/2018 14:08:29 07/02/20 18 07/02/2018 drug scree n, urine cotinine ur ql cfm <125 NG/mL >=125 NONE DETEC VIVI Not Available [facility] [address] [place] [address], [place], [address], 07/09/2018 14:08:29 07/02/20 18 07/02/2018 drug scree n, urine pH ur 5.4 >= normal NOEMI L Not Available [facility] [address] [place] [address], [place], [address], 07/09/2018 14:08:29 07/02/20 18 07/02/2018 drug scree n, urine creat ur-mcnc 132 mg/dL >=2 normal NOEMI L Not Available [facility] [address] [place] [address], [place], [address], 07/09/2018 14:08:29 07/02/20 18 07/03/2018 drug scree n, urine pregabalin ur cfm-mcnc 106 mcg/m L >=5 POSIT TIMOTEO Not Available [facility] [address] [place] [address], [place], [address], 07/09/2018 14:08:29 07/02/20 18 07/03/2018 drug scree n, urine methadone ur cfm-mcnc 5750 NG/mL >=200 POSIT TIMOTEO Not Available [facility] [address] [place] [address], [place], [address], 07/09/2018 14:08:29 07/02/20 18 07/03/2018 drug scree n, urine EDDP ur cfm-mcnc 92044 NG/mL >=200 POSIT TIMOTEO Not Available [facility] [address] [place] [address], [place], [address], 07/09/2018 14:08:29 07/02/20 18 07/04/2018 drug scree n, urine ethyl glucuronide ur cfm-mcnc <500 NG/mL >=500 NONE DETEC VIVI Not Available [facility] [address] [place] [address], [place], [address], 07/09/2018 14:08:29 07/02/20 18 07/04/2018 drug scree n, urine ethyl sulfate ur cfm-mcnc <200 NG/mL >=200 NONE DETEC VIVI Not Available [facility] [address] [place] [address], [place], [address], 07/09/2018 14:08:29 07/02/20 18 07/02/2018 antid epres sants , quali tativ e, urine sn reuptake inhibitors ur ql >=5 NG/mL >=5 POSIT TIMOTEO Not Available [facility] [address] [place] [address], [place], [address], 07/09/2018 14:08:29 07/02/20 18 07/04/2018 antid epres sants , quali tativ e, urine odv ur cfm-mcnc 31483 NG/mL >=5 POSIT TIMOTEO Not Available [facility] [address] [place] [address], [place], [address], 07/09/2018 14:08:29 07/02/20 18 07/07/2018 antid epres sants , quali tativ e, urine venlafaxine ur cfm-mcnc 72402 NG/mL >=5 POSIT TIMOTEO Not Available [facility] [address] [place] [address], [place], [address], 07/09/2018 14:08:29 07/02/20 18 07/02/2018 drug scree n, urine cathinones synthetic ur ql scn <25 NG/mL >=25 NONE DETEC VIVI Not Available [facility] [address] [place] [address], [place], [address], 07/09/2018 14:08:28 07/02/20 18 07/02/2018 drug scree n, urine cannabinoids synthetic ql scn <2 NG/mL >=2 NONE DETEC VIVI Not Available [facility] [address] [place] [address], [place], [address], 07/09/2018 14:08:28 07/02/20 18 07/02/2018 drug- drug [...] albert de point es.(1 ) Not Available [facility] [address] [place] [address], [place], [address], 07/09/2018 14:08:27 07/02/20 18 07/02/2018 drug- drug inter actio n (ddi) drug-drug interaction profile >=5 NG/mL >=5 POSIT TIMOTEO Not Available [facility] [address] [place] [address], [place], [address], 07/09/2018 14:08:27 07/02/20 18 07/04/2018 drug- drug inter actio n (ddi) O-desmethylv enlafaxine ddi NG/mL >=5 POSIT TIMOTEO Not Available [facility] [address] [place] [address], [place], [address], 07/09/2018 14:08:27 07/02/20 18 07/04/2018 drug- drug inter actio n (ddi) venlafaxine (effexor) ddi NG/mL >=5 POSIT TIMOTEO Not Available [facility] [address] [place] [address], [place], [address], 07/09/2018 14:08:27 07/02/20 18 07/02/2018 drug scree n, urine venlafaxine ur CMP 39566 NG/mL >=5 normal COMPL IANT: Test resul t is consi stent and expec vivi with presc ribed drug. Not Available [facility] [address] [place] [address], [place], [address], 07/09/2018 14:08:27 07/02/20 18 07/02/2018 drug scree n, urine methadone ur CMP 16445 NG/mL >=200 normal COMPL IANT: Test resul t is consi stent and expec vivi with presc ribed drug. Not Available [facility] [address] [place] [address], [place], [address], 07/09/2018 14:08:27 07/02/20 18 07/02/2018 drug scree n, urine butalbital ur CMP 1380 NG/mL >=200 normal COMPL IANT: Test resul t is consi stent and expec vivi with presc ribed drug. Not Available [facility] [address] [place] [address], [address], 07/09/2018 14:08:27 07/02/20 18 07/02/2018 drug scree n, urine pregabalin ur CMP 106 mcg/m L >=5 normal COMPL IANT: Test resul t is consi stent and expec vivi with presc ribed drug. Not Available [facility] [address] [place] [address], [place], [address], 07/09/2018 14:08:27 07/02/20 18 07/02/2018 drug scree n, urine mextaxalone ur CMP <50 NG/mL >=50 abnormal NON-C OMPLI ANT: Test resul t indic ates patie nt may not be takin g drug presc ribed . Not Available [facility] [address] [place] [address], [place], [address], 07/09/2018 14:08:27 07/02/20 18 07/02/2018 drug scree n, urine hydrocodone ur CMP <100 NG/mL >=100 normal PRN - NOT PRESE NT: Test resul t is consi stent and expec vivi with presc ribed drug. Not Available [facility] [address] [place] [address], [place], [address], 07/09/2018 14:08:27 07/02/20 18 07/02/2018 drug scree n, urine zolpidem ur CMP <4 NG/mL >=4 normal PRN - NOT PRESE NT: Test resul t is consi stent and expec vivi with presc ribed drug. Not Available [facility] [address] [facility], [place], [address], 07/09/2018 14:08:27 Result Notes None recorded. Problems Name Problem SNOMED Code Status Onset Date Resolution Date Notes Provider Name and Address Organization Details Recorded Time Long-term drug therapy Active 018 MATTY BECKMAN [address] [place] [address] [address], [place], [address] , [place] [facility] 8 13:45:43 Migraine 19151810 Active 018 MATTY BECKMAN [address] [place] [address] [address], [place], [address] , [place] [facility] 8 13:45:52 Neck pain 61555498 Active 018 MATTY BECKMAN [address] [place] [address] [address], [place], [address] , [place] [facility] 8 13:46:15 Problem Notes None recorded. Procedures Surgical History Date Name Laterality Status Provider Name and Address Organization Details Recorded Time 12/01/19 19 [place] [address] [place] [address] [address], [place], [address], [place] [facility] 12/01/2018 20:04:13 11/24/19 19 EWatson 25g Cervical Facet Injection completed Jennifer Quintana MD [facility] [address] [address], [place], [address], [place] [facility] 11/24/2018 13:09:09 08/27/20 18 [place] [address] [place] [address] [address], [place], [address], [place] [facility] 09/16/2018 16:50:17 06/11/20 18 EWatson 25g Cervical Facet Injection completed Jennifer Quintana MD [address] [address] [address], [place], [address], [place] [facility] 06/11/2018 10:00:33 05/27/20 18 Botox completed Jennifer Quintana MD [address] [place] [address] [address], [place], [address], [place] [facility] 05/28/2018 14:24:07 10/07/19 18 Left Foot completed Salomon Apodaca MD [address] [place] [address] [address], [place], [address], [place] [facility] 05/12/2018 15:01:34 10/07/19 17 Shoulder arthroscopy-left completed Salomon Apodaca MD [address] [place] [address] [address], [place], [address], [place] [facility] 05/12/2018 15:01:34 10/07/19 14 Left Total Knee Arthroplasty completed Salomon Apodaca MD [address] [place] [address] [address], [place], [address], [place] [facility] 05/12/2018 15:01:34 10/07/19 13 Left Hand/Wrist Surgery completed Salomon Apodaca MD [address] [place] [address] [address], [place], [address], [place] [facility] 05/12/2018 15:01:34 10/07/19 13 Right Hand/Wrist Surgery completed Salomon Apodaca MD [address] [place] [address] [address], [place], [address], [place] [facility] 05/12/2018 15:01:34 10/07/19 12 Right Knee Arthroplasty completed Salomon Apodaca MD [address] [place] [address] [address], [place], [address], [place] [facility] 05/12/2018 15:01:34 10/07/19 10 Hysterectomy completed Salomon Apodaca MD [address] [place] [address] [address], [place], [address], [place] [facility] 05/12/2018 15:01:34 10/07/18 92 Other completed Salomon Apodaca MD [address] [place] [address] [address], [place], [address], [place] [facility] 05/12/2018 15:01:34 10/07/18 81 Gallbladder Surgery completed Salomon Apodaca MD [address] [place] [address] [address], [place], [address], [place] [facility] 05/12/2018 15:01:34 Imaging Results None recorded. Procedure Notes None recorded. Medical Equipment None Reported. Allergies Allergen ID Allergen Name Allergen Category Reaction Reaction Severity Criticality Documentation Date Start Date Code Code System Note Provider Name and Address Organization Details Recorded Time 55498 fentanyl medicatio n diarrhea moderate Not available 05/12/2018 4337 Vin Apodaca MD [address] [place] [address] [address], [place], [address], [facility] 8 15:01:32 46230 latex environme nt,medica tion itching moderate Not available 05/12/2018 98025 91 Vin Apodaca MD [address] [place] [address] [facility] [address], [place], [address], [facility] 8 15:01:32 65668 Substance with sulfonami de structure and antibacte rial mechanism of action (substanc e) medicatio n eye redness moderate Not available 05/12/2018 81650 8003 STEPHANY Apodaca MD [address] [place] [address] [address], [place], [address], [facility] 8 15:01:32 04197 Product containin g penicilli n (product) medicatio n rash moderate Not available 05/12/2018 97459 8001 STEPHANY Apodaca MD [address] [place] [address] [address], [place], [address], [facility] 8 15:01:32 Medications Name Sig [...] Updated DateTime 07/02/2018 160.02 cm Pam Gómezartz [place] - [facility] 8 09:56:40 Date Recorded Body height Provider Name an d Address Organization Details Last Updated DateTime 08/27/2018 160.02 cm Pam Kilgore [place] [facility] 8 11:13:31 Date Recorded Body height Provider Name an d Address Organization Details Last Updated DateTime 11/17/2018 160.02 cm Summer Carlo [place] [facility] 9 13:04:40 Date Recorded Body height Heart rate Systolic blood pressure Diastolic blood pressure Provider Name and Address Organization Details Last Updated DateTime 11/24/2018 160.02 cm 78 /min 125 mm[Hg] 76 mm[Hg] Patricia Mannie [place] [facility] 11/24/2018 12:57:48 Social History Question Answer Notes LastModified by Organizat ion Details LastModified Time Tobacco Smoking Status Never Smoker Salomon Apodaca MD [address] [address] [address], [place], [address], [place] [facility] 05/12/2018 15:01:33 Is Blood Transfusion Acceptable In An Emergency? Yes Information not available 05/12/2018 How Much Tobacco Do You Chew? None Information not available 05/12/2018 Which Illicit Or Recreational Drugs Have You Used? None Information not available 05/12/2018 Live Alone Or [...] Functional Status Question Answer Note LastModified by Organizat ion Details LastModified Time What is your level of alcohol consumption? None Information not available 05/12/2018 What is your occupation? Disabled Retired Information not available 05/12/2018 What is your exercise level? None Information [...] Anemia N Multiple Sclerosis N Heart Attack ([place]) N Ulcers N Stomach Ulcers N Diabetes [...] SNOMED-CT Code Diagnosis ICD10 Code Diagnosis Note [id number] Salomon Apodaca MD [facility] [address] [place] [address] 05/12/2018 14:28:23 05/15/2018 14:40:31 Neck pain 37767900 M54.2 We discussed the nature of the [...] during the next visit. Cervical spondylosis 387 530516 M47.812 Degenerati on of cervical intervertebral disc 59392524 M50.30 [id number] [facility] [address] [place] [address] 05/27/2018 14:25:39 05/27/2018 16:05:07 Refractory migraine without aura 159663808 G43.719 [id number] [facility] [address] [place] [address] 06/02/2018 08:59:35 06/02/2018 13:19:37 Neck pain 07795975 M54.2 X-ray findings/i nterpretat ion: {{Mild* Mo [...] discussed and described above. Cervical spondylosis 387 269120 M47.812 Degenerati on of cervical intervertebral disc 05038298 M50.30 [id number] Jennifer Quintana MD [facility] [address] [place] [address] 06/11/2018 09:08:20 06/12/2018 12:20:07 Cervical spondylosis without myelopathy 565286362 M47.812 766127 MATTY BECKMAN [facility] [address] [place] [address] 07/02/2018 09:47:24 07/02/2018 11:51:45 Long-term drug therapy 942992196 Z79.899 Migraine 90234229 G43.90 9 Neck pain 84643913 M54.2 [id number] Jennifer Quintana MD [facility] [address] [place] [address] 08/27/2018 11:08:46 09/01/2018 15:47:39 Refractory migraine without aura 178823408 G43.719 568508 MATTY BECKMAN [facility] [address] [place] [address] 11/17/2018 12:56:36 11/17/2018 13:34:57 Neck pain 91618667 M54.2 Migraine 34879252 G43.90 9 [id number] Jennifer Quintana MD [facility] [address] [place] [address] 11/24/2018 12:49:46 11/25/2018 16:03:41 Cervical spondylosis 313309016 M47.812 [id number] Jennifer Quintana MD [facility] [address] [place] [address] 12/01/2018 12:29:59 12/01/2018 13:23:33 Refractory migraine without aura 480993283 G43.719 Health Concerns Section Related Observation LastModified by Organization Detai ls LastModified Time None Recorded Concern Status LastModified by Organization Details LastModified Time None Recorded Advance Directives Directive None Recorded Payers Insurance Date Sequence Insurance Name Policy Number Policy Ramirez Covered Member ID Ramirez Member ID Guarantor Name 03/13/2019 1 [place]ICARE [place]: KAREEM NASCIMENTOA Laura Hdz [id number] Laura Hdz 03/13/2019 2 [facility] FEP [id number] Laura Hdz [id number] Laura Hdz 03/13/2019 [facility]) Laura Hdz [id number] Laura Hdz Notes Date Note Type Note Provider Name and Address Organization Details Recorded Time 8 text/html Pain Management Follow-UpReported bypatient.Current level of painMild pain: 1/10 to 2/10 Location:neck Outcome of Treatmentshort term relief UDT/SOAP:SOAP: [...] or functional issues. Jennifer Quintana MD [address] [address] [address], [place], [address], [facility] 07/02/2018 16:21:18 8 text/html Pt is her for Botox for migraines. no side effect from the previous injection or facial asymmetry. Reports that her headaches are at least 50% better. Continues to have neck pain without radiation. Jennifer Quintana MD [address] [address] [address], [place], [address], [facility] 09/16/2018 16:50:49 9 text/html Pain [...] or functional issues. Jennifer Quintana MD [address] [address] [address], [place], [address], [facility] 11/18/2018 08:49:06 9 text/html Last MRI?-05/31/2018No blood thinners past 7 days?-noNo antibiotics?-noDriver Present?-no Jennifer Quintana MD [address] [address] [address], [place], [address], [facility] 11/24/2018 13:20:49 9 text/html patient presents today for Botox injection. Her headaches diminish well for 2 months, then slowly go back to 3-4 headaches per week. Denies side effects from Botox, no dry eyes or dysphasia. Continues on pain medication. No recent fevers or infection. Jennifer Quintana MD [address] [address] [address], [place], [address], [facility] 12/01/2018 20:04:41 OBGyn Episode No OBEpisode recorded.
--- OUTSIDE RECORDS SUMMARY | 2025-02-23 22:53 | XMS_ITS | Clinical Summary ---
Author Organization [address] [facility] Address [address] [place] [address] Phone Care Team Providers Care [employer] Product Consultant Name Role Phone Osmany Browning MD Primary Care Provider [phone] Allergies Active Allergy Reactions Criticality Noted Date [...] 2:30 PM EST Consult Orthopedic Surgery - [address] [place] [address] Marixa Emery MD Arthritis of [...] 09/24/2024 Social Influencers of Health Screening 09/24/2024 COVID-19 Vaccine ( season) 2025 08/06/2024, 11/22/2023, 02/19/2023, Additional history exists Pneumococcal Vaccine: 50+ Years Completed 01/30/2023, 06/28/2020 RSV Immunization Adult Patients Completed 11/22/2023 Influenza Vaccine Completed 08/06/2024, , 07/11/2022, Additional [...] than the neighboring digits. ??Consistent with arthritis. us Marixa Emery MD IMG XR PROCEDURES Final [...] joint. ??It looks very reminiscent of rheumatoid. us Marixa Emery MD IMG XR PROCEDURES Final Resul t from Last 3 Months Insurance MEDICARE [facility] Care Teams [employer] Product Consultant Relationship Specialty Start Date End Date Osmany Browning MD [address] [place] [address] [address] Bro PCP - General Internal Medicine 12/08/24
--- OUTSIDE RECORDS SUMMARY | 2025-02-23 22:53 | XMS_ITS | Data Portability ---
Author Organization [facility], MAIN OFFICE Address [address] [place] [address] Care Team Providers Care Sofa Inspector Name Role Phone ROSIO MARES Primary Care Provider Assessment Encounter Date Assessment Date Assessment LastModified by Organization Details LastModified Time 05/28/2017 05/28/2017 Dr Bingham in to s ee the patient. SCANS: Lumbar MRI (done at [facility] on 03/26/2017) findings/interpreta tion: Multilevel spondylosis. [...] recorded. Lab drug screen, urine 2017 018 [email or web address] Main Office, [address], [address], [place], [address], 8 16:36:58 drug screen, urine 2016 017 CARA Main Office, [address], [address], [place], [address], 7 14:46:03 Referral general surgeon referral - possible ALIF L4/5 L5/S1 please call patient with appt 2016 017 [email or web address] Duran Paris MD, [address], [place], [address], 7 21:27:09 Procedures None recorded. Surgeries None recorded. Imaging XR, cervical spine, 4 or 5 view 2017 018 [email or web address] Main Office, [address], [address], [place], [address], 8 08:25:32 Medication Orders hydrocodone 10 mg-acetamin ophen 325 mg tablet 2016 017 [email or web address] Not available 7 12:54:37 Patient Targets Encounter Date Encounter Id Patient Goals Patient Target Last Modified By Organization Details Last Modified Time [facility] record checked.Low risk UDTBased on [...] marijuana, meperidine, methadone, opiates, tapentadol, and tramadol. [email or web address] Not available 08/06/2017 12:59:51 we'll continue current medications.D ROSARIO record checked.Recom mend Botox for migraines. [email or web address] Not available 11/05/2017 12:11:16 [facility] website checked.Naresh nue hydrocodone, Lidoderm patches, Fioricet, Arthrotec, Botox her headaches. [email or web address] Not available 05/04/2018 15:26:02 Patient Instructions Encounter Date Encounter Id Patient Instructions Last Modified By Organization Details Last Modified Time 11/05/2017 [id number] neck pain: care instructions [email or web address] Not available 11/05/2017 12:12:08 04/28/2018 [id number] neck pain: care instructions [email or web address] Not available 04/29/2018 19:29:13 Reason for Referral General Surgeon Referral for Spondylolisthesis consideration of ALIF possible ALIF L4/5 L5/S1 please call patient with appt Referring Physician: Volodymyr Bingham, Orthopedic Surgery, Encounter Date: 05/28/2017 Results Created Date Observation Date Name Description Value Unit Range Abnormal Flag Note LastModifiedBy Organization Detail LastModifiedTime 08/06/20 17 08/06/2017 drug scree n, urine venlafaxine ur CMP 80999 NG/mL >=5 normal COMPL IANT: Test resul t is consi stent and expec vivi with presc ribed drug. Not Available [facility] [address] [place] [address], [address], 08/12/2017 16:12:18 08/06/20 17 08/06/2017 drug scree n, urine methadone ur CMP 72845 NG/mL >=200 normal COMPL IANT: Test resul t is consi stent and expec vivi with presc ribed drug. Not Available [facility] [address] [place] [address], [address], 08/12/2017 16:12:18 08/06/20 17 08/06/2017 drug scree n, urine zolpidem ur CMP 8050 NG/mL >=4 normal COMPL IANT: Test resul t is consi stent and expec vivi with presc ribed drug. Not Available [facility] [address], [place], [address], 08/12/2017 16:12:18 08/06/20 17 08/06/2017 drug scree n, urine pregabalin ur CMP 115 mcg/m L >=5 normal COMPL IANT: Test resul t is consi stent and expec vivi with presc ribed drug. Not Available [facility] [address] [place], [address], 08/12/2017 16:12:18 08/06/20 17 08/06/2017 drug scree n, urine butalbital ur CMP 1990 NG/mL >=200 normal COMPL IANT: Test resul t is consi stent and expec vivi with presc ribed drug. Not Available [facility] [address] [place] [address], [place], [address], 08/12/2017 16:12:18 08/06/20 17 08/06/2017 drug scree n, urine cathinones synthetic ur ql scn <25 NG/mL >=25 NONE DETEC VIVI Not Available [facility] [address] [place] [address], [place], [address], 08/12/2017 16:12:18 08/06/20 17 08/06/2017 drug scree n, urine buprenorphin e ur ql cfm <1 NG/mL >=1 NONE DETEC VIVI Not Available [facility] [address] [place] [address], [place], [address], 08/12/2017 16:12:18 08/06/20 17 08/06/2017 drug scree n, urine alcohol metabolites ur ql cfm <200 NG/mL >=200 NONE DETEC VIVI Not Available [facility] [address] [place] [address], [place], [address], 08/12/2017 16:12:18 08/06/20 17 08/06/2017 drug scree n, urine ethyl glucuronide ur cfm-mcnc <500 NG/mL >=500 NONE DETEC VIVI Not Available [facility] [address] [place] [address], [place], [address], 08/12/2017 16:12:18 08/06/20 17 08/06/2017 drug scree n, urine ethyl sulfate ur cfm-mcnc <200 NG/mL >=200 NONE DETEC VIVI Not Available [facility] [address] [place] [address], [place], [address], 08/12/2017 16:12:18 08/06/20 17 08/06/2017 drug scree n, urine tapentadol ur ql cfm <100 NG/mL >=100 NONE DETEC VIVI Not Available [facility] [address] [place] [address], [place], [address], 08/12/2017 16:12:18 08/06/20 17 08/06/2017 drug scree n, urine amphetamines ur ql cfm <250 NG/mL >=250 NONE DETEC VIVI Not Available [facility] [address] [place] [address], [place], [address], 08/12/2017 16:12:18 08/06/20 17 08/06/2017 drug scree n, urine barbiturates ur ql cfm >=200 NG/mL >=200 POSIT TIMOTEO Not Available [facility] [address] [place] [address], [place], [address], 08/12/2017 16:12:18 08/06/20 17 08/06/2017 drug scree n, urine butalbital ur cfm-mcnc 1990 NG/mL >=200 POSIT TIOMTEO Not Available [facility] [address] [place] [address], [place], [address], 08/12/2017 16:12:18 08/06/20 17 08/06/2017 drug scree n, urine benzodiaz ur ql cfm <50 NG/mL >=50 NONE DETEC VIVI Not Available [facility] [address] [place] [address], [place], [address], 08/12/2017 16:12:18 08/06/20 17 08/06/2017 drug scree n, urine THC ur ql scn <5 NG/mL >=5 NONE DETEC VIVI Not Available [facility] [address] [place] [address], [place], [address], 08/12/2017 16:12:18 08/06/20 17 08/06/2017 drug scree n, urine gabapentinpr egabalin ur ql cfm >=5 mcg/m L >=5 POSIT TIMOTEO Not Available [facility] [address] [place] [address], [address], 08/12/2017 16:12:18 08/06/20 17 08/06/2017 drug scree n, urine pregabalin ur cfm-mcnc 115 mcg/m L >=5 POSIT TIMOTEO Not Available [facility] [address] [place] [address], [place], [address], 08/12/2017 16:12:18 08/06/20 17 08/06/2017 drug scree n, urine sedative hypnotics ur ql cfm >=4 NG/mL >=4 POSIT TIMOTEO Not Available [facility] [address] [place] [address], [address], 08/12/2017 16:12:18 08/06/20 17 08/06/2017 drug scree n, urine zolpidem ur cfm-mcnc 9 NG/mL >=4 POSIT TIMOTEO Not Available [facility] [address] [place] [address], [address], 08/12/2017 16:12:18 08/06/20 17 08/06/2017 drug scree n, urine zolpidem xecumd-1-wio b ur cfm 8040 NG/mL >=4 POSIT TIMOTEO Not Available [facility] [address] [place] [address], [address], 08/12/2017 16:12:18 08/06/20 17 08/06/2017 drug scree n, urine bze ur ql cfm <50 NG/mL >=50 NONE DETEC VIVI Not Available [facility] [address] [place] [address], [place], [address], 08/12/2017 16:12:18 08/06/20 17 08/06/2017 drug scree n, urine opiates ur ql cfm <100 NG/mL >=100 NONE DETEC VIVI Not Available [facility] [address] [place] [address], [place], [address], 08/12/2017 16:12:18 08/06/20 17 08/06/2017 drug scree n, urine 6mam ur ql cfm <10 NG/mL >=10 NONE DETEC VIVI Not Available [facility] [address] [place] [address], [address], 08/12/2017 16:12:18 08/06/20 17 08/06/2017 drug scree n, urine methadone ur ql cfm >=200 NG/mL >=200 POSIT TIMOTEO Not Available [facility] [address] [place] [address], [address], 08/12/2017 16:12:18 08/06/20 17 08/06/2017 drug scree n, urine methadone ur cfm-mcnc 939 NG/mL >=200 POSIT TIMOTEO Not Available [facility] [address] [place] [address], [place], [address], 08/12/2017 16:12:18 08/06/20 17 08/06/2017 drug scree n, urine EDDP ur cfm-mcnc 44695 NG/mL >=200 POSIT TIMOTEO Not Available [facility] [address] [place] [address], [place], [address], 08/12/2017 16:12:18 08/06/20 17 08/06/2017 drug scree n, urine meperidine ur ql cfm <100 NG/mL >=100 NONE DETEC VIVI Not Available [facility] [address] [place] [address], [place], [address], 08/12/2017 16:12:18 08/06/20 17 08/06/2017 drug scree n, urine fentanyl+nor fentanyl ur ql cfm <5 NG/mL >=5 NONE DETEC VIVI Not Available [facility] [address] [place] [address], [place], [address], 08/12/2017 16:12:18 08/06/20 17 08/06/2017 drug scree n, urine carisoprodol +meprob ur ql scn <200 NG/mL >=200 NONE DETEC VIVI Not Available [facility] [address] [place] [address], [address], 08/12/2017 16:12:18 08/06/20 17 08/06/2017 drug scree n, urine tramadol ur ql cfm <100 NG/mL >=100 NONE DETEC VIVI Not Available [facility] [address] [place] [address], [address], 08/12/2017 16:12:18 08/06/20 17 08/06/2017 drug scree n, urine cotinine ur ql cfm <125 NG/mL >=125 NONE DETEC VIVI Not Available [facility] [address] [place] [address], [place], [address], 08/12/2017 16:12:18 08/06/20 17 08/06/2017 drug scree n, urine sn reuptake inhibitors ur ql >=5 NG/mL >=5 POSIT TIMOTEO Not Available [facility] [address] [place] [address], [address], 08/12/2017 16:12:18 08/06/20 17 08/06/2017 drug scree n, urine venlafaxine ur cfm-mcnc 4130 NG/mL >=5 POSIT TIMOTEO Not Available [facility] [address] [place] [address], [address], 08/12/2017 16:12:18 08/06/20 17 08/06/2017 drug scree n, urine odv ur cfm-mcnc 59731 NG/mL >=5 POSIT TIMOTEO Not Available [facility] [address] [place] [address], [address], 08/12/2017 16:12:18 08/06/20 17 08/06/2017 drug scree n, urine cannabinoids synthetic ql scn <2 NG/mL >=2 NONE DETEC VIVI Not Available [facility] [address] [place] [address], [address], 08/12/2017 16:12:18 08/06/20 17 08/06/2017 drug scree n, urine nitrite ur-mcnc <200 mcg/m L <200 normal NOEMI L Not Available [facility] [address] [place] [address], [address], 08/12/2017 16:12:18 08/06/20 17 08/06/2017 drug scree n, urine chromate ur-mcnc <50 mcg/m L <50 normal NOEMI L Not Available [facility] [address], [place], [address], 08/12/2017 16:12:18 08/06/20 17 08/06/2017 drug scree n, urine pH ur 8.4 hallman 3.5 - 9.0 normal NOEMI L Not Available [facility] [address] [place], [address], 08/12/2017 16:12:18 08/06/20 17 08/06/2017 drug scree n, urine creat ur-mcnc 111 mg/dL >=2 normal NOEMI L Not Available [facility] [address] [place] [address], [place], [address], 08/12/2017 16:12:18 08/06/20 17 08/06/2017 drug scree n, urine sp gr ur 1.0182 hallman >=1.00 20 normal NOEMI L Not Available [facility] [address] [place] [address], [address], 08/12/2017 16:12:18 Result Notes None recorded. Problems Name Problem SNOMED Code Status Onset Date Resolution Date Notes Provider Name and Address Organization Details Recorded Time Arthropath y 683879072 Active 2015 Not Available [facility] 6 10:18:55 Primary central sleep apnea 8418607979711 Active 2015 Not Available [facility] 6 10:18:55 Low back pain 089793975 Active 2015 Not Available [facility] 6 10:18:55 Impingemen t syndrome of shoulder region 214021142 Active 2015 Not Available [facility] 6 10:18:55 Lumbosacra l radiculopa thy 3603039 Active 2015 Not Available [facility] 6 10:18:55 Idiopathic osteoarthr itis 612118081 Active 2014 Not Available [facility] 6 10:18:55 Problem Notes None recorded. Procedures Surgical History Date Name Laterality Status Provider Name and Address Organization Details Recorded Time 01/28/20 18 Botox Initial completed MD Vaibhav Cotter[address], [place], [address], [facility] 01/27/2018 16:07:03 11/05/19 18 Trigger Point Injection completed MD Zay Cotter,[address], [place], [address], [facility] 11/05/2017 12:11:46 08/06/20 17 Trigger Point Injection completed MD Zay Cotter [address], [place], [address], [facility] 08/06/2017 12:18:34 05/02/20 17 Trigger Point Injection completed MD Zay Cotter,[address], [place], [address], [facility] 05/02/2017 14:55:38 04/17/20 17 EW Discography completed MD Zay Cotter,[address], [place], [address], [facility] 04/17/2017 13:38:35 01/24/20 17 EW 22g Transforaminal Epidural Steroid Injection completed Jennifer Quintana MD [address], [place], [address], [facility] 01/23/2017 14:34:07 10/07/19 17 Rotator Cuff Surgery completed Pam Kilgore [facility] 01/27/2018 11:02:47 10/07/19 14 Knee Surgery completed Molly Pate [facility] 10/10/2016 09:07:15 10/07/19 12 Eye Surgery completed Molly Pate [facility] 10/10/2016 09:07:15 10/07/19 12 Knee Surgery completed Molly Pate [facility] 10/10/2016 09:07:15 10/07/19 11 Hand Surgery completed Molly Pate [facility] 10/10/2016 09:07:15 10/07/19 10 Hysterectomy completed Molly Pate [facility] 10/10/2016 09:07:15 10/07/19 10 Bladder sling completed Molly Pate [facility] 10/10/2016 09:07:15 10/07/18 95 Hand Surgery completed Molly Pate [facility] 10/10/2016 09:07:15 10/07/18 93 Eye Surgery completed Mollyisidro Pate [facility] 10/10/2016 09:07:15 10/07/18 89 Gallbladder Surgery completed Mollyisidro Pate [facility] 10/10/2016 09:07:15 Imaging Results None recorded. Procedure Notes None recorded. Medical Equipment None Reported. Allergies Allergen ID Allergen Name Allergen Category Reaction Reaction Severity Criticality Documentation Date Start Date Code Code System Note Provider Name and Address Organization Details Recorded Time 24877 Product containin g penicilli n (product) medicatio n Not available Not available Not available 08/08/20162010 87691 8001 SNOMED Comme nt: Repor vivi Year: 2010; Not Available [facility] 6 07:37:24 72627 penicilla mine medicatio n Not available Not available Not available 08/08/20162011 7975 RxNorm Sever ity: Unkno wn; [facility] 7 09:12:02 04024 sulfabenz amide Not available Not available Not available Not available 08/08/20162011 54435 RxNorm Sever ity: Unkno wn; [facility] 7 09:12:08 02973 Substance with sulfonami de structure and antibacte rial mechanism of action (substanc e) medicatio n Not available Not available Not available 08/08/20162010 33163 8003 SNOMED Comme nt: Repor vivi Year: 2010; Not Available [facility] 6 07:37:24 32366 latex environme nt,medica tion itching moderate Not available 10/10/2016 78297 91 RxNorm [facility] 7 09:07:13 Medications Name Sig Start Date [...] Updated DateTime 05/28/2017 160.02 cm Sravani Hahn [facility] 05/28/2017 08:33:17 Date Recorded Body height Provider Name an d Address Organization Details Last Updated DateTime 08/06/2017 160.02 cm Jennifer Quintana MD [address], [place], [address], [facility] 08/06/2017 11:30:12 Date Recorded Body height Provider Name an d Address Organization Details Last Updated DateTime 01/27/2018 160.02 cm Pam Kilgore [facility] 01/27/2018 11:02:27 Date Recorded Body height Provider Name an d Address Organization Details Last Updated DateTime 04/28/2018 160.02 cm Pam Kilgore [facility] 04/28/2018 10:51:44 Social History Question Answer Notes LastModified by Organizat ion Details LastModified Time Tobacco Smoking Status Never Smoker Not Available [facility] 08/09/2020 04:06:17 What Is Your Level Of Caffeine Consumption? None [id number] Information not available 08/09/2020 How Much Tobacco Do You Chew? None [id number] Information not available 08/09/2020 Education 2 Year College [email or web address] Informatio n not available 10/10/2016 Which Of Your Hands Is Dominant? Right [id number] Information not available 08/09/2020 Marital Status [email or web address] Informatio n not available 01/27/2018 What Was The Date Of Your Most Recent Tobacco Screening? 04/28/2018 [id number] Information not available 08/09/2020 Sex: Unknown Functional Status Question Answer Note LastModified by Organization D etails LastModified Time What is your level of alcohol consumption? None [id number] Information not available 08/09/2020 Are you currently employed? No [id number] Information not available 08/09/2020 Mental Status None recorded. Family History Relationship [...] SNOMED-CT Code Diagnosis ICD10 Code Diagnosis Note 35046 MATTY [place] MAIN OFFICE [address] [place] [address] 10/10/2016 08:30:52 10/10/2016 09:40:07 Full thickness rotator cuff tear 920619636 M75.122 IMAGING: MRI left shoulder shows a [...] like to proceed. Informed consent was obtained. 23228 MATTY BECK[place] MAIN OFFICE [address] [place] [address] 10/15/2016 08:11:52 10/15/2016 09:25:39 Full thickness rotator cuff tear 466722189 M75.122 Impingemen t syndrome of shoulder region 022320735 M75.42 Lumbosacra l radiculopathy 1379689 M54.16 Primary ce ntral sleep apnea 2324134261 101 G47.31 03688 Ino Carias MD MAIN OFFICE [address] [place] [address] 10/24/2016 08:08:01 10/24/2016 08:57:00 History of arthroscopic procedure on shoulder 718668277 Z98.890 IMPRESSION : 2 Weeks s/p left [...] 4 weeks History of major orthopedic surgery 123892727 Z98.890 73326 Ino Carias MD MAIN OFFICE [address] [place] [address] 11/28/2016 08:08:37 11/28/2016 08:31:35 History of arthroscopic procedure on shoulder 589346082 Z98.890 she is 6 weeks out now doing well she can discontinu e her sling. No active range of motion yet. Continue protocol. Follow-up 6 weeks. 49661 Ino Carias MD MAIN OFFICE [address] [place] [address] 01/09/2017 09:18:11 01/09/2017 10:26:53 History of arthroscopic procedure on shoulder 720805199 Z98.890 she is 12 weeks out now and she is doing very well. Recommend that she graduated from physical therapy to a home exercise program. Recommende d that she continue this for about 2 months. At this point she can follow up as needed. Patient was agreeable and all questions were answered today. [id number] Jennifer Quintana MD MAIN OFFICE [address] [place] [address] 01/10/2017 09:34:37 01/10/2017 11:28:59 Pain of joint of ankle and/or foot 836916587 M25.579 please obtain 3 views of the bilateral ankles and bilateral feet next appointmen t if she is still having pain after the injections . Consider physical therapy. Lumbar radiculopathy 128 258557 M54.16 recommend bilateral S1 nerve blocks. Fibromyalgia 213304959 M 79.7 Low back pain 756899707 M54.5 [id number] Jennifer Quintana MD PAIN CENTER [address] [place] [address] 01/23/2017 13:52:32 01/24/2017 14:45:48 Lumbar radiculopathy 457817292 M54.16 recommend bilateral S1 nerve blocks. [id number] Jennifer Quintana MD MAIN OFFICE [facility] [place] [address] 03/12/2017 10:36:03 03/12/2017 11:18:45 Migraine 45152443 G43.909 advised weaning from butalbital as she is able. She has. She failed Topamax. She does not qualify for Botox. Lumbar radiculopathy 128 293012 M54.16 Neck pain 71399852 M54.2 Metatarsalgia 96978866 M 77.40 67949 Volodymyr Bingham MD MAIN OFFICE [address] [place] [address] 03/21/2017 13:16:21 03/21/2017 14:28:53 Low back pain 610574350 M54.5 Neck pain 10408562 M54.2 Lumbosacra l spondylosis 760314800 M47.817 22901 Volodymyr Bingham MD MAIN OFFICE [address] [place] [address] 03/28/2017 14:53:55 03/28/2017 15:23:41 Low back pain 552313400 M54.5 Neck pain 23156180 M54.2 Lumbosacra l spondylosis 575668945 M47.817 Cervical spondylosis 387 019282 M47.812 Degenerati ve spondylolisthesis 0074617 M43.19 M43.16 M43.17 14557 Jennifer Quintana MD MAIN OFFICE [address] [place] [address] 04/02/2017 12:37:04 04/02/2017 13:42:09 Lumbar spondylosis 247327072 M47.896 Lumbar radiculopathy 128 627039 M54.16 [id number] Jennifer Quintana MD PAIN CENTER [address] [place] [address] 04/17/2017 11:59:28 04/18/2017 08:34:06 Lumbosacral spondylosis without myelopathy 15367457 M47.817 [id number] Jennifer Quintana MD PAIN CENTER [address] [place] [address] 05/02/2017 12:30:38 05/02/2017 13:44:03 Low back pain 164489627 M54.5 Neck pain 85755522 M54.2 [id number] Volodymyr Bingham MD MAIN OFFICE [address] [place] [address] 05/28/2017 08:22:27 05/28/2017 09:28:27 Spondylolisthesis 928358761 M43.19 Lumbosacra l spondylosis 366046395 M47.817 Low back pain 303183341 M54.5 Lumbar dis cogenic pain 394223945 M51.26 [id number] Jennifer Quintana MD MAIN OFFICE [address] [place] [address] 08/06/2017 10:58:18 08/06/2017 12:27:27 Long-term drug therapy 054676316 Z79.891 Low back pain 585113624 M54.5 Cervical s pondylosis with radiculopathy 927311383 M47.22 [id number] Jennifer Quintana MD MAIN OFFICE [address] [place] [address] 11/05/2017 10:50:11 11/05/2017 12:05:58 Neck pain 95045828 M54.2 Migraine without aura 56 488638 G43.009 urine drug screen as per protocol. [id number] Jennifer Quintana MD MAIN OFFICE [address] [place] [address] 01/27/2018 10:34:24 01/27/2018 12:02:53 Long-term drug therapy 297650319 Z79.891 Refractory migraine without aura 476287935 G43.719 [id number] Jennifer Quintana MD MAIN OFFICE [address] [place] [address] 04/28/2018 10:32:18 04/28/2018 11:44:58 Neck pain 13189300 M54.2 given slight anterolist hesis of C3 on 4, will recommend follow-up with Dr. Apodaca. Cervical s pondylosis with radiculopathy 816653495 M47.22 Migraine 51655119 G43.90 9 Health Concerns Section Related Observation LastModified by Organization Detai ls LastModified Time None Recorded Concern Status LastModified by Organization Details LastModified Time None Recorded Advance Directives Directive None Recorded Payers Encounter Date Sequence Insurance Name Policy Number Policy Ramirez Covered Member ID Ramirez Member ID Guarantor Name 05/28/2017 1 [place] KAREEM NASCIMENTOA Laura E Hdz [id number] Laura E Hdz 05/28/2017 2 [place] 104 Laura E Hdz [id number] Laura E Hdz 08/06/2017 1 [place] GBA Laura E Hdz [id number] Laura E Hdz 08/06/2017 2 [place] Laura E Hdz [id number] Laura E Hdz 11/05/2017 1 [place] Laura E Hdz [id number] Laura E Hdz 11/05/2017 2 [place] 104 Laura E Hdz [id number] Laura E Hdz 01/27/2018 1 [place] Laura E Hdz [id number] Laura E Hdz 01/27/2018 2 [place] 104 Laura E Hdz [id number] Laura E Hdz 04/28/2018 1 [place] Laura E Hdz [id number] Laura E Hdz 04/28/2018 2 [place] 104 Laura E Hdz [id number] Laura E Hdz Notes Date Note Type [...] to discuss surgical options. Srini Jarquin PA-C [address] [facility] [address], [place], [address], [facility] 06/06/2017 21:36:28 7 text/html Pain Management [...] aberrant behavior. Jennifer Quintana MD [address],[facility] [address], [place], [address], [facility] 08/06/2017 12:59:59 8 text/html Pain Management [...] if possible. Jennifer Quintana MD [address] [facility] [address], [place], [address], [facility] 11/05/2017 12:12:15 8 text/html Pt presents for her Botox injection today for migraines. Current pain level 1/10. Medications are helping. Denies recent infection or fever. Jennifer Quintana MD [address] [facility] [address], [place], [address], [facility] 01/27/2018 16:14:48 8 text/html Pain Management [...] current pain level 10. Jennifer Quintana MD [address] [facility],[address], [place], [address], [facility] 05/04/2018 15:26:40 OBGyn Episode No OBEpisode recorded.
--- NOTE | 2025-02-23 23:09 | PC.NURSE ---
This RN assumed pt care @ 2300. Pt a&ox4, no signs of distress Pt reports RLQ sharp 9/10 pain with onset 2-3 days ago that got progressively worse today Plan of care ongoing.
[2025-02-23 23:31] LABS: Appearance Urine Clear; Color Urine Yellow; Glucose Urine UA Negative (Negative); Leukocyte Esterase Urine Negative (Negative); Nitrite Urine Negative (Negative); PH 5.5 (5.0-9.0); Urine Blood Negative (Negative); Urine Ketones Negative (Negative); Urine Protein Negative (Neg-Trace)
[2025-02-23] MEDS: 0.9 % Sodium Chloride 1,000 ML 999 ML IV (23:49)
[2025-02-24] MEDS: iohexoL 350 MG/ML 100 ML INFUS..BTL 85 ML IV (00:02)
[2025-02-24 01:51] VITALS: BP 138/73; PULSE 71; RESP 18; TEMP 36.8; O2SAT 100
[2025-02-24 01:52] VITALS: BP 138/73; PULSE 71; RESP 18; TEMP 36.8; O2SAT 100
== END 2025-02-24 01:54 | disposition home or self-care (01) ==
PROVIDERS: Physician Assistant Medical; Emergency Provider Emergency Medicine; PCP Internal Medicine
DX: R10.31 Right lower quadrant pain (principal); Z79.899 Other long term (current) drug therapy
CPT/HCPCS: 36415; 74177; 80053; 81003; 83690; 83735; 85025; 99284; Q9967

== ENCOUNTER → 2025-02-23 23:20 | Outpatient (BNV) | payer MEDICARE, BC, SELFPAY | PROVIDERS: Emergency Provider Emergency Medicine; PCP Internal Medicine; Visit Provider Radiology Diagnostic Radiology | DX: R10.31 Right lower quadrant pain (principal); R35.0 Frequency of micturition | CPT/HCPCS: 74177 ==

== ENCOUNTER 2025-03-04 14:26 | Outpatient (AMB) | payer MEDICARE, BC, SELFPAY ==
[2025-03-04 14:33] VITALS: BP 132/78; PULSE 79; O2SAT 97; BMI 38.7
--- NOTE | 2025-03-04 14:33 | A.OFFPC_ITS ---
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 Required: No Accompanied by: Self / Same As Patient Allergies Sulfa (Sulfonamide Antibiotics) [SULFA (SULFONAMIDE ANTIBIOTICS)] Allergy (Severe, Verified 03/04/25 14:52) ANAPHYLAXIS Penicillins [PENICILLINS] Allergy (Mild, Verified 03/04/25 14:52) RASH latex Adverse Reaction (Severe, Verified 03/04/25 14:52) Rash doxycycline Adverse Reaction (Mild, Verified 03/04/25 14:52) Abdominal Pain Medication List - Last Reconciled 03/04/25 by BILLY Cabrera albuterol sulfate 90 mcg/actuation 2 puffs inhalation Q6H PRN atorvastatin 10 mg PO DAILY 90 days ccblzenwld-dgmcwfn-nzfhgbvf 50-325-40 mg 1 cap PO Q6-8H PRN 30 days calcium carbonate (Calcium 600) 600 mg PO DAILY cholecalciferol (vitamin D3) (Vitamin D3) 25 mcg PO DAILY fluticasone propionate 50 mcg/actuation 1 spray intranasal DAILY lidocaine 5% 1 patch topical DAILY loratadine (Claritin) 10 mg PO BEDTIME lorazepam 0.5 mg PO DAILY PRN 30 days metaxalone 800 mg PO TID PRN fnwroajlogne-ebtusjmh-dcpldd (Multivitamin 50 Plus tablet) 1 tab PO DAILY olopatadine 0.7% (Pataday Once Daily Relief) 1 drp ophthalmic (eye) Q24H PRN omeprazole 20 mg PO DAILY@0630 prednisone 20 mg PO DAILY 3 days pregabalin 75 mg PO BID 30 days ropinirole 1 mg PO BEDTIME 90 days sumatriptan succinate 100 mg PO DAILY PRN 30 days tramadol 100 mg (2 x 50 mg) PO Q6H PRN 48 days venlafaxine ER 150 mg PO DAILY zolpidem ER 12.5 mg PO BEDTIME PRN 30 days Tobacco use date assessed: 03/04/25 Fall risk assessment: No Falls in past year Last assessed Fall Risk: 03/04/25 Dental Screening Dental Screen Date: 03/04/25 Did you have a dental visit in the last 12 months?: Yes Did you have a dental problem in the last 6 months where you did not have access to dental care?: No Was dental information given to patient?: Patient has dentist HPI [facility] 02/23 Pain right abdominal HPI Details The patient is a 69-year-old female presenting with abdominal pain, bloating, and back discomfort. Her symptoms began three days following an ER visit for abdominal pain. Initially intense, the pain has decreased but persists as occasional twinges. She reports new bloating after meals without constipation but has experienced diarrhea two to three times. With a history of celiac disease, she manages her diet carefully, noting alternating bowel habits. Increased water intake has been suggested to aid in passing a potential kidney stone, although imaging did not confirm a stone. She has chronic back issues, exacerbated since recent events, following a surgery last July where rods were placed near her tailbone. She initially suspected appendicitis, but tests were negative for infection or stones. Her back pain radiates to her lower back, described as nerve-like and persistent despite THC cream application. She denies chest pain, shortness of breath, and reports her bowel movements are usual. [facility] Medical History (Updated 03/11/25 @ 14:21 by BILLY Cabrera) Degenerative joint disease of shoulder, right Osteoarthritis Arthritis Back pain Celiac sprue GERD (gastroesophageal reflux disease) Anxiety Numbness Sepsis Sleep apnea Sacroiliac dysfunction Migraine Burn injury Sinusitis chronic, frontal Osteopenia Obesity (BMI 30-39.9) Major depression, recurrent Insomnia Primary osteoarthritis Urinary frequency Mitral valve prolapse Allergic rhinitis Gastritis Pure hypercholesterolemia Restless leg syndrome Cervicalgia Lumbar degenerative disc disease Fibromyalgia Surgical History History of lumbar spinal fusion History of bilateral knee arthroplasty Hx of eye surgery History of cataract surgery History of carpal tunnel release History of bunionectomy S/P GINGER-BSO (total abdominal hysterectomy and bilateral salpingo-oophorectomy) History of repair of rotator cuff History of arthroscopy of both knees Hx of cholecystectomy Hx of endoscopy History of colonoscopy Family History Father History of cancer Mother History of cancer History of high blood pressure Hx of diabetes mellitus Social History (Reviewed 03/04/25 @ 14:35 by MORENA Corona Household Members: Significant Other Household Members Other:: DAUGHTER AND HER FAMILY Housing: House Are you a primary client care representative to a significant other at home: No Do you presently have visiting nurse or other home services: No Alcohol intake: current Alcohol intake frequency: holidays/special occasions only Patient Tobacco Use Status: Never used Tobacco Tobacco use type: Cigarette e-Cigarette/Vaping Use: Never Used Second Hand Smoke Exposure: Yes service: No Current occupational status: retired Cognitive needs: No Hearing needs: No Vision needs: Yes Questionnaire PHQ-9 Over the last 2 weeks, how often have you been bothered by any of the following problems? 1. Little interest or pleasure in doing things: several days 2. Feeling down, depressed, or hopeless: several days 3. Trouble falling or staying asleep, or sleeping too much: more than half the days 4. Feeling tired or having little energy: several days 5. Poor appetite or overeating: not at all 6. Feeling bad about yourself - or that you are a failure or have let yourself or your family down: not at all 7. Trouble concentrating on things, such as reading the newspaper or watching television: several days 8. Moving or speaking so slowly that other people could have noticed. Or the opposite - being so fidgety or restless that you have been moving around a lot more than usual: not at all 9. Thoughts that you would be better off or of hurting yourself in some way: not at all Total score: 6 Source: Developed by Drs. Elroy Roberts, Sunni Amaro, Yadiel Maya and colleagues, with an educational og from [employer]. Thrive Questionnaire Date Thrive assessed: 03/04/25 I am a: Patient What is your living situation today?: I have a steady place to live Within the past 12 months, did the food you bought not last and you didn't have the money to get more?: Never true Within the past 12 months, did you worry whether your food would run out before you got money to buy more?: Never true Do you have trouble paying for medicines?: No Do you have trouble getting transportation to medical appointments?: No Do you have trouble paying your heating and electricity bill?: No Do you have trouble taking care of your child, family member or friend?: No Do you have trouble with day-to-day activities such as bathing, preparing meals, shopping, managing finances, etc.?: No Are you currently unemployed and looking for a job?: No Are you interested in more education?: No Please select the resources that you would like help with: None Currently or been in a relationship where the following occur: No concerns reported THRIVE Score: 0 AUDIT C Alcohol Use Questionnaire (AUDIT-C) 1. How often do you have a drink containing alcohol?: 2-4 times a month 2. How many drinks containing alcohol do you have on a typical day when you are drinking?: 1 or 2 3. How often do you have six or more drinks on one occasion?: Never Total Score: 2 PANFILO-7 AMB Questionnaire PANFILO-7 Date PANFILO - 7 assessed: 03/04/25 Feeling nervous, anxious, or on edge: 0 = Not at all Not being able to stop or control worryin = Several days Worrying too much about different things: 1 = Several days Trouble relaxin = Several days Being so restless that it is hard to sit still: 1 = Several days Becoming easily annoyed or irritable: 0 = Not at all Feeling afraid as if something awful might happen: 0 = Not at all Total PANFILO-7 score (0-4 normal; 5-9 mild; 10-14 moderate; 15-21 severe): 4 Source: Developed by Drs. Elroy Roberts, Sunni Amaro, Yadiel Maya and colleagues, with an educational og from [employer]. Review of Systems Const Denies headache(s) Eyes Denies loss of vision ENT Denies vertigo, Denies dizziness, Denies headache(s) and Denies sore throat Card Denies chest pain, Denies leg edema and Denies lightheadedness Resp Denies cough, Denies hemoptysis and Denies wheezing GI Reports abdominal pain (mild intermittently), Denies melena, Reports bloating, Denies constipation, Reports diarrhea (none today) and Denies vomiting Denies urinary frequency, Denies dysuria, Denies urinary urgency and Reports other (Increase urination with increased p.o. fluids) Musc Reports back pain (chronic lower back pain), Denies arthralgias, Denies joint swelling, Denies numbness and Denies tingling Neuro Denies Abnormal speech present, Denies behavioral changes, Denies vertigo, Denies dizziness, Denies headache(s), Denies loss of vision, Denies memory loss, Denies numbness and Denies tingling Psych Denies anxiety, Denies behavioral changes, Denies depression, Denies memory loss and Denies panic attacks Marshall/Lymph Denies easy bleeding and Denies easy bruising Aller/Immun Denies wheezing Physical exam (Primary Care) Vital Signs: Last Vital Signs Pulse 79 03/04/25 14:33 BP 132/78 03/04/25 14:33 Pulse Ox 97 03/04/25 14:33 Oxygen Delivery Method Room Air 03/04/25 14:33 BMI result Body Mass Index 38.7 Tobacco/Smoking Status: Tobacco use Status Tobacco use date assessed 03/04/25 03/04/25 14:36 Patient Tobacco Use Status Never used Tobacco 03/04/25 14:36 Tobacco use type Cigarette 03/04/25 14:36 e-Cigarette/Vaping Use Never Used 03/04/25 14:36 PHQ-9: PHQ-9 Score PHQ-9: Total score 6 03/11/25 01:15 Thrive Assessment: Date of Thrive Assessment Date Thrive assessed 03/04/25 03/04/25 14:36 Currently or been in a relationship where the following occur: No concerns reported Const General: healthy appearing, no acute distress, alert and awake Nutritional Appearance: well nourished Orientation/consciousness: oriented to person, oriented to place and oriented to time HENMT Ears: external ears normal General nose exam: Normal external nose present Mouth: Normal oral and palatal mucosa present Eyes Conjunctivae: conjunctivae normal Sclerae: sclerae normal Pupils: Equal, round and reactive pupils present Neck Neck: Yes no lymphadenopathy and Yes no JVD Thyroid: Thyroid normal Carotids: no bruits Resp Effort & Inspection: normal respiratory effort and not tachypneic Auscultation: no crackles, no rales, no rhonchi and no wheezes Cardio Rate: regular rate Rhythm: regular rhythm Heart sounds: no murmurs and normal S1 and S2 GI Palpation (GI): Soft to palpation, Tenderness to palpation present (GI) (mild in nature on the right side in between the upper and lower), no hepatomegaly and no splenomegaly Auscultation: normal bowel sounds General: Yes no CVA tenderness Back/Spine/Pelvis Back: no CVA tenderness Thoracic/Lumbar Spine: lumbar spinal tenderness Skin General skin exam: no rashes or lesions noted and dry skin Neuro General: oriented to person, oriented to place and oriented to time Cranial nerves: Yes Equal, round and reactive pupils present Speech: No Abnormal speech present Gait exam (Neuro): Normal gait present Motor exam (neuro): no tremor noted Extrem Right upper extremity: full ROM Left upper extremity: full ROM Right lower extremity: full ROM; no edema Left lower extremity: full ROM; no edema Psych Mental Status: mental status grossly normal Speech and movement: Normal speech and movement present Affect: normal affect Attitude: cooperative Thought process: Normal thought process present Coding Level of Care Code Est Pt Level 3 (70191) Diagnoses Abdominal pain, unspecified abdominal location R10.9 Abdominal location: unspecified location Celiac disease K90.0 Degeneration of intervertebral disc of lumbar region with discogenic back pain and lower extremity pain M51.362 Disc-related pain type: discogenic back pain and lower extremity pain Time Spent (min) 34 Assessment & Plan Assessment & Plan (1) Abdominal pain: Code(s): R10.9 - Unspecified abdominal pain Category: Medical Qualifiers: Abdominal location: unspecified location Qualified Code(s): R10.9 - Unspecified abdominal pain (2) Celiac disease: Code(s): K90.0 - Celiac disease Category: Medical (3) Lumbar degenerative disc disease: Comment: Grade 1-2 anterolisthesis L5/S1 with moderate to severe bilateral L5 foraminal narrowing Code(s): M51.36 - Other intervertebral disc degeneration, lumbar region Category: Medical Qualifiers: Disc-related pain type: discogenic back pain and lower extremity pain Qualified Code(s): M51.362 - Other intervertebral disc degeneration, lumbar region with discogenic back pain and lower extremity pain Plan The patient's abdominal pain and bloating are managed through careful dietary adherence due to her celiac disease. Continued increased water intake is advised as a precaution for potential kidney stone passage, though imaging did not confirm this. Her back discomfort, exacerbated by abdominal issues, is managed with THC cream, tramadol 100 mg q6H PRN. Monitoring for symptom changes is essential, and she should maintain her follow-up with Dr. Browning for further evaluation. Completion of pending blood work is advised, and any new or worsening symptoms should prompt reevaluation. Patient was informed and verbally consented to the use of an ambient scribe for clinic note documentation during this visit.
--- OUTSIDE RECORDS SUMMARY | 2025-03-04 14:34 | XMS_ITS | Clinical Summary ---
Author Organization [facility] Facility Address [address] [place] [id number] Care Team Providers Care Custom Protection Officer Name Role Phone Unavailable Primary Care [...] patient's age to complete this topic [id number] Medicare
== END 2025-03-04 15:04 | disposition home or self-care (01) ==
LOC: HO.HMCH 14:27
PROVIDERS: PCP Internal Medicine
DX: R10.9 Unspecified abdominal pain (principal); K90.0 Celiac disease; M51.362 Other intervertebral disc degeneration, lumbar region with discogenic back pain and lower extremity pain

== ENCOUNTER → 2025-03-04 14:26 | Outpatient (BNVA) | payer MEDICARE, BC, SELFPAY | PROVIDERS: PCP Internal Medicine | DX: R10.9 Unspecified abdominal pain (principal); K90.0 Celiac disease; M51.362 Other intervertebral disc degeneration, lumbar region with discogenic back pain and lower extremity pain | CPT/HCPCS: 99212 ==

== ENCOUNTER 2025-03-17 10:28 | Outpatient (AMB) | payer MEDICARE, BC, SELFPAY ==
--- NOTE | 2025-03-17 10:42 | MHC.OFFVIS ---
Vital Signs 03/17/25 10:44 Height 5 ft 2 in Weight 211 lb BMI 38.6 BP 145/67 H Blood Pressure Location Lt brachial Position Sitting Respiration 16 Pulse 85 Pulse Source Pulse Oximeter Pulse Oximetry (%) 97 Oxygen Delivery Method Room Air Intake Visit Reasons: 6 weeks trigger point inj Clinical Psychologist Private Practice Required: No Data Power Consultant: Data Power Consultant Present Accompanied by: Mirza Jackson Allergies Sulfa (Sulfonamide Antibiotics) (SULFA (SULFONAMIDE ANTIBIOTICS)) Allergy (Severe, Verified 03/17/25 10:45) ANAPHYLAXIS Penicillins (PENICILLINS) Allergy (Mild, Verified 03/17/25 10:45) RASH latex Adverse Reaction (Severe, Verified 03/17/25 10:45) Rash doxycycline Adverse Reaction (Mild, Verified 03/17/25 10:45) Abdominal Pain Medication List - Last Reconciled 03/17/25 by Bhakti Avila LPN albuterol sulfate 90 mcg/actuation 2 puffs inhalation Q6H PRN atorvastatin 10 mg PO DAILY 90 days bvzvwiqomm-jxubgbf-tghpjfxk 50-325-40 mg 1 cap PO Q6-8H PRN 30 days calcium carbonate (Calcium 600) 600 mg PO DAILY cholecalciferol (vitamin D3) (Vitamin D3) 25 mcg PO DAILY fluticasone propionate 50 mcg/actuation 1 spray intranasal DAILY lidocaine 5% 1 patch topical DAILY loratadine (Claritin) 10 mg PO BEDTIME lorazepam 0.5 mg PO DAILY PRN 30 days metaxalone 800 mg PO TID PRN gbefcgcuassj-vfxruxeu-ddwvmc (Multivitamin 50 Plus tablet) 1 tab PO DAILY olopatadine 0.7% (Pataday Once Daily Relief) 1 drp ophthalmic (eye) Q24H PRN omeprazole 20 mg PO DAILY@0630 prednisone 20 mg PO DAILY 3 days pregabalin 75 mg PO BID 30 days ropinirole 1 mg PO BEDTIME 90 days sumatriptan succinate 100 mg PO DAILY PRN 30 days tramadol 100 mg (2 x 50 mg) PO Q6H PRN 48 days venlafaxine ER 150 mg PO DAILY zolpidem ER 12.5 mg PO BEDTIME PRN 30 days HPI HPI 6 weeks trigger point inj: Details: History of Present Illness The patient is a 69-year-old female presenting with nerve pain management following spinal surgery. She experiences persistent burning pain localized to the right buttock, characteristic of nerve pain. This pain commenced approximately three months ago, appearing a few months after her spinal surgery. The burning sensation is primarily focused in the buttock region and affects her daily activities. Additionally, the patient reports neck pain, particularly on the right side, extending to the occipital area. The neck pain has been episodic, with a notable increase in sensitivity on the right side. A follow-up with the spine care team is scheduled for next month to reevaluate her condition and explore additional management strategies. Pain Description - Onset & Timing: Right buttock pain began approximately three months ago post-surgery. Neck pain is recurrent with no specific onset noted. - Quality & Character: Burning sensation in the right buttock; tender pain in the cervical region. - Primary Location: Right buttock, cervical, and occipital areas. - Areas of Radiation: Occipital region from the neck. - Exacerbating Factors: Post-operative changes. - Relieving Factors: No specific method has fully alleviated symptoms. - Impact on Activities: Pain is bothersome and impacts daily function. Physical Exam - Neck & Cervical Region- Bilateral occipital, trapezius, and cervicalis muscles described as pain trigger points. Results Pain Management - Affect: Pain is described as bothersome and annoying. - Analgesia: No current medication noted; the patient is considering gabapentin for the burning pain. - Adverse Effects: Not discussed. - Activities of Daily Living: Impacted by persistent pain. - Aberrant Drug-Related Behaviors: Not discussed. Procedure - Informed consent was obtained. - The patient was positioned comfortably sitting. - Preparation with Chloroprep was performed on the neck and shoulder area. - Bilateral occipitalis, trapezius, and cervicalis muscles were injected with 0.5-1 mL of ropivacaine 0.25% at each trigger point. - The patient tolerated the procedure well. [facility] Medical History (Updated 03/11/25 @ 14:21 by BILLY Cabrera) Degenerative joint disease of shoulder, right Osteoarthritis Arthritis Back pain Celiac sprue GERD (gastroesophageal reflux disease) Anxiety Numbness Sepsis Sleep apnea Sacroiliac dysfunction Migraine Burn injury Sinusitis chronic, frontal Osteopenia Obesity (BMI 30-39.9) Major depression, recurrent Insomnia Primary osteoarthritis Urinary frequency Mitral valve prolapse Allergic rhinitis Gastritis Pure hypercholesterolemia Restless leg syndrome Cervicalgia Lumbar degenerative disc disease Fibromyalgia Surgical History History of lumbar spinal fusion History of bilateral knee arthroplasty Hx of eye surgery History of cataract surgery History of carpal tunnel release History of bunionectomy S/P GINGER-BSO (total abdominal hysterectomy and bilateral salpingo-oophorectomy) History of repair of rotator cuff History of arthroscopy of both knees Hx of cholecystectomy Hx of endoscopy History of colonoscopy Family History Father History of cancer Mother History of cancer History of high blood pressure Hx of diabetes mellitus Social History Household Members: Significant Other Household Members Other:: DAUGHTER AND HER FAMILY Housing: House Are you a primary medicare nurse to a significant other at home: No Do you presently have visiting nurse or other home services: No Alcohol intake: current Alcohol intake frequency: holidays/special occasions only Patient Tobacco Use Status: Never used Tobacco Tobacco use type: Cigarette e-Cigarette/Vaping Use: Never Used Second Hand Smoke Exposure: Yes service: No Current occupational status: retired Cognitive needs: No Hearing needs: No Vision needs: Yes Physical Exam Vital Signs: Last Vital Signs Pulse 85 03/17/25 10:44 Resp 16 03/17/25 10:44 BP 145/67 H 03/17/25 10:44 Pulse Ox 97 03/17/25 10:44 Oxygen Delivery Method Room Air 03/17/25 10:44 BMI result Body Mass Index 38.6 Assessment & Plan Assessment & Plan (1) Myofascial pain: Code(s): M79.18 - Myalgia, other site Category: Medical Plan Plan - Trial gabapentin 300 mg at night for managing right buttock pain. - Follow-up with spine surgery department next month to revisit the patient's condition. - Consider steroid injection for buttock pain relief in the future if symptoms persist. Patient was informed and verbally consented to the use of an ambient scribe for clinic note documentation during this visit. Discussion Notes During our discussion, I explained the nature of post-operative nerve pain and the challenges associated with its treatment. We reviewed the option of gabapentin as a potential therapy for the burning sensation in her right buttock, emphasizing it might help manage the pain if taken cautiously due to its sedative properties. The patient agreed to try this medication. We also discussed the upcoming spine care appointment and reiterated its importance for assessing her condition further. I outlined the possibility of corticosteroid injection should her symptoms persist, highlighting it as a subsequent consideration based on her pain's progression. The patient expressed her understanding and agreement with the discussed plan. Patient Instructions - Begin gabapentin 300 mg at night, by 6:00 PM. - Follow up with the spine surgery team next month. - Report any changes or side effects from the medication. - Consider further interventions including a potential steroid injection if pain persists. Coding Level of Care Code Procedure Only Diagnoses Myofascial pain M79.18
[2025-03-17 10:44] VITALS: BP 145/67; PULSE 85; RESP 16; O2SAT 97; BMI 38.6
--- OUTSIDE RECORDS SUMMARY | 2025-03-17 11:55 | XMS_ITS | Clinical Summary ---
Author Organization [facility] Facility Address [address] [place] [address] Care Team Providers Care Warehouse Inventory Clerk Name Role Phone Unavailable Primary Care Provider [...] patient's age to complete this topic Insurance [id number] Medicare
== END 2025-03-17 11:02 | disposition home or self-care (01) ==
LOC: HO.PMC 10:29
PROVIDERS: PCP Internal Medicine; Visit Provider Internal Medicine
DX: M79.18 Myalgia, other site (principal)
CPT/HCPCS: 20553

== ENCOUNTER → 2025-03-17 10:28 | Outpatient (BNVA) | payer MEDICARE, BC, SELFPAY | PROVIDERS: PCP Internal Medicine; Visit Provider Internal Medicine | DX: M79.18 Myalgia, other site (principal) | CPT/HCPCS: 20553 ==

== ENCOUNTER 2025-04-08 08:55 | Outpatient (REF) | payer MEDICARE, BC, SELFPAY ==
--- OUTSIDE RECORDS SUMMARY | 2025-04-08 09:06 | XMS_ITS | Data Portability ---
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 SCANS: Lumbar MRI (done at [facility] on 03/26/2017) findings/interpreta tion: Multilevel spondylosis. [...] recorded. Lab drug screen, urine 2017 018 [email or web address] Main Office, [address], [address], [place], [address], 8 16:36:58 drug screen, urine 2016 017 CARA Main Office, [address], [address], [place], [address], 7 14:46:03 Referral general surgeon referral - possible ALIF L4/5 L5/S1 please call patient with appt 2016 017 [email or web address] Duran Paris MD, [address], [place], [address], 7 21:27:09 Procedures None recorded. Surgeries None recorded. Imaging XR, cervical spine, 4 or 5 view 2017 018 [email or web address] Main Office, [address], [address], [place], [address], 8 08:25:32 Medication Orders hydrocodone 10 mg-acetamin ophen 325 mg tablet 2016 017 [email or web address] Not available 7 12:54:37 Patient Targets Encounter Date Encounter Id Patient Goals Patient Target Last Modified By Organization Details Last Modified Time 08/06/2017 [id number] [facility] record checked. Low risk UDTBased on the most recent SOAP score, a validated risk assessment tool for opiate prescribing, the patient is at low risk of opiate misuse. Therefore, it is clinically necessary to check for the presence or absence of the following agents in today's drug test: Amphetamines, benzodiazepin es, buprenorphine , carisoprodol, cocaine, ethyl glucuronide, fentanyl, marijuana, meperidine, methadone, opiates, tapentadol, and tramadol. [email or web address] Not available 08/06/2017 12:59:51 11/05/2017 [id number] we'll continue current medications. [facility] record checked. Recommend Botox for migraines. [email or web address] Not available 11/05/2017 12:11:16 04/28/2018 [id number] [employer] website checked. Continue hydrocodone, Lidoderm patches, Fioricet, Arthrotec, Botox her headaches. [email or web address] Not available 05/04/2018 15:26:02 Patient Instructions Encounter Date Encounter Id Patient Instructions Last Modified By Organization Details Last Modified Time 11/05/2017 [id number] neck pain: care instructions [email or web address] Not available 11/05/2017 12:12:08 04/28/2018 [id number] neck pain: care instructions [email or web address] Not available 04/29/2018 19:29:13 Reason for Referral General Surgeon Referral for Spondylolisthesis consideration of ALIF possible ALIF L4/5 L5/S1 please call patient with appt Referring Physician: Volodymyr Bingham, Orthopedic Surgery, Encounter Date: 05/28/2017 Results Created Date Observation Date Name Description Value Unit Range Abnormal Flag Note LastModifiedBy Organization Detail LastModifiedTime 08/06/20 17 08/06/2017 drug scree n, [place] 00731 NG/mL >=5 normal COMPL IANT: Test resul t is consi stent and expec vivi with presc ribed drug. Not Available [employer] [address] [place] [address], [address], 08/12/2017 16:12:18 08/06/20 17 08/06/2017 drug scree n, urine methadone ur CMP 81956 NG/mL >=200 normal COMPL IANT: Test resul t is consi stent and expec vivi with presc ribed drug. Not Available [employer] [address] [place] [address], [address], 08/12/2017 16:12:18 08/06/20 17 08/06/2017 drug scree n, urine zolpidem ur CMP 8050 NG/mL >=4 normal COMPL IANT: Test resul t is consi stent and expec vivi with presc ribed drug. Not Available [employer] [address] [place], [address], 08/12/2017 16:12:18 08/06/20 17 08/06/2017 drug scree n, urine pregabalin ur CMP 115 mcg/m L >=5 normal COMPL IANT: Test resul t is consi stent and expec vivi with presc ribed drug. Not Available [employer] [address] [place] [address] [place], [address], 08/12/2017 16:12:18 08/06/20 17 08/06/2017 drug scree n, urine butalbital ur CMP 1990 NG/mL >=200 normal COMPL IANT: Test resul t is consi stent and expec vivi with presc ribed drug. Not Available [employer] [address] [place] [address], [place], [address], 08/12/2017 16:12:18 08/06/20 17 08/06/2017 drug scree n, urine cathinones synthetic ur ql scn <25 NG/mL >=25 NONE DETEC VIVI Not Available [employer] [address] [place] [address], [place], [address], 08/12/2017 16:12:18 08/06/20 17 08/06/2017 drug scree n, urine buprenorphin e ur ql cfm <1 NG/mL >=1 NONE DETEC VIVI Not Available [employer] [address] [place] [address], [place], [address], 08/12/2017 16:12:18 08/06/20 17 08/06/2017 drug scree n, urine alcohol metabolites ur ql cfm <200 NG/mL >=200 NONE DETEC VIVI Not Available [employer] [address] [place] [address], [place], [address], 08/12/2017 16:12:18 08/06/20 17 08/06/2017 drug scree n, urine ethyl glucuronide ur cfm-mcnc <500 NG/mL >=500 NONE DETEC VIVI Not Available [employer] [address] [place] [address], [place], [address], 08/12/2017 16:12:18 08/06/20 17 08/06/2017 drug scree n, urine ethyl sulfate ur cfm-mcnc <200 NG/mL >=200 NONE DETEC VIVI Not Available [employer] [address] [place] [address], [place], [address], 08/12/2017 16:12:18 08/06/20 17 08/06/2017 drug scree n, urine tapentadol ur ql cfm <100 NG/mL >=100 NONE DETEC VIVI Not Available [employer] [address] [place] [address], [place], [address], 08/12/2017 16:12:18 08/06/20 17 08/06/2017 drug scree n, urine amphetamines ur ql cfm <250 NG/mL >=250 NONE DETEC VIVI Not Available [employer] [address] [place] [address], [address], 08/12/2017 16:12:18 08/06/20 17 08/06/2017 drug scree n, urine barbiturates ur ql cfm >=200 NG/mL >=200 POSIT TIMOTEO Not Available [employer] [address] [place] [address], [address], 08/12/2017 16:12:18 08/06/20 17 08/06/2017 drug scree n, urine butalbital ur cfm-mcnc 1990 NG/mL >=200 POSIT TIMOTEO Not Available [employer] [address] [place] [address], [place], [address], 08/12/2017 16:12:18 08/06/20 17 08/06/2017 drug scree n, urine benzodiaz ur ql cfm <50 NG/mL >=50 NONE DETEC VIVI Not Available [employer] [address] [place] [address], [place], [address], 08/12/2017 16:12:18 08/06/20 17 08/06/2017 drug scree n, urine THC ur ql scn <5 NG/mL >=5 NONE DETEC VIVI Not Available [employer] [address] [place] [address], [place], [address], 08/12/2017 16:12:18 08/06/20 17 08/06/2017 drug scree n, urine gabapentinpr egabalin ur ql cfm >=5 mcg/m L >=5 POSIT [employer]OTE[employer] Not Available [employer] [address] [place] [address], [address], 08/12/2017 16:12:18 08/06/20 17 08/06/2017 drug scree n, urine pregabalin ur cfm-mcnc 115 mcg/m L >=5 POSIT TIMOTEO Not Available [employer] [address] [place] [address], [place], [address], 08/12/2017 16:12:18 08/06/20 17 08/06/2017 drug scree n, urine sedative hypnotics ur ql cfm >=4 NG/mL >=4 POSIT TIMOTEO Not Available [employer] [address] [place] [address], [place], [address], 08/12/2017 16:12:18 08/06/20 17 08/06/2017 drug scree n, urine zolpidem ur cfm-mcnc 9 NG/mL >=4 POSIT TIMOTEO Not Available [employer] [address] [place] [address], [place], [address], 08/12/2017 16:12:18 08/06/20 17 08/06/2017 drug scree n, urine zolpidem boirqq-[id number] b ur cfm 8040 NG/mL >=4 POSIT TIMOTEO Not Available [employer] [address] [place] [address], [place], [address], 08/12/2017 16:12:18 08/06/20 17 08/06/2017 drug scree n, urine bze ur ql cfm <50 NG/mL >=50 NONE DETEC VIVI Not Available [employer] [address] [place] [address], [place], [address], 08/12/2017 16:12:18 08/06/20 17 08/06/2017 drug scree n, urine opiates ur ql cfm <100 NG/mL >=100 NONE DETEC VIVI Not Available [employer] [address] [place] [address], [place], [address], 08/12/2017 16:12:18 08/06/20 17 08/06/2017 drug scree n, urine 6mam ur ql cfm <10 NG/mL >=10 NONE DETEC VIVI Not Available [employer] [address] [place] [address], [place], [address], 08/12/2017 16:12:18 08/06/20 17 08/06/2017 drug scree n, urine methadone ur ql cfm >=200 NG/mL >=200 POSIT TIMOTEO Not Available [employer] [address] [place] [address], [place], [address], 08/12/2017 16:12:18 08/06/20 17 08/06/2017 drug scree n, urine methadone ur cfm-mcnc 939 NG/mL >=200 POSIT TIMOTEO Not Available [employer] [address] [place] [address], [place], [address], 08/12/2017 16:12:18 08/06/20 17 08/06/2017 drug scree n, urine EDDP ur cfm-mcnc 57398 NG/mL >=200 POSIT TIMOTEO Not Available [employer] [address] [place] [address], [place], [address], 08/12/2017 16:12:18 08/06/20 17 08/06/2017 drug scree n, urine meperidine ur ql cfm <100 NG/mL >=100 NONE DETEC VIVI Not Available [employer] [address] [place] [address], [place], [address], 08/12/2017 16:12:18 08/06/20 17 08/06/2017 drug scree n, urine fentanyl+nor fentanyl ur ql cfm <5 NG/mL >=5 NONE DETEC VIVI Not Available [employer] [address] [place] [address], [place], [address], 08/12/2017 16:12:18 08/06/20 17 08/06/2017 drug scree n, urine carisoprodol +meprob ur ql scn <200 NG/mL >=200 NONE DETEC VIVI Not Available [employer] [address] [place] [address], [place], [address], 08/12/2017 16:12:18 08/06/20 17 08/06/2017 drug scree n, urine tramadol ur ql cfm <100 NG/mL >=100 NONE DETEC VIVI Not Available [employer] [address] [place] [address], [place], [address], 08/12/2017 16:12:18 08/06/20 17 08/06/2017 drug scree n, urine cotinine ur ql cfm <125 NG/mL >=125 NONE DETEC VIVI Not Available [employer] [address] [place] [address], [place], [address], 08/12/2017 16:12:18 08/06/20 17 08/06/2017 drug scree n, urine sn reuptake inhibitors ur ql >=5 NG/mL >=5 POSIT TIMOTEO Not Available [employer] [address] [place] [address], [place], [address], 08/12/2017 16:12:18 08/06/20 17 08/06/2017 drug scree n, urine venlafaxine ur cfm-mcnc 4130 NG/mL >=5 POSIT TIMOTEO Not Available [employer] [address] [place] [address], [place], [address], 08/12/2017 16:12:18 08/06/20 17 08/06/2017 drug scree n, urine odv ur cfm-mcnc 64246 NG/mL >=5 POSIT TIMOTEO Not Available [employer] [address] [place] [address], [place], [address], 08/12/2017 16:12:18 08/06/20 17 08/06/2017 drug scree n, urine cannabinoids synthetic ql scn <2 NG/mL >=2 NONE DETEC VIVI Not Available [employer] [address] [place] [address], [place], [address], 08/12/2017 16:12:18 08/06/20 17 08/06/2017 drug scree n, urine nitrite ur-mcnc <200 mcg/m L <200 normal NOEMI L Not Available [employer] [address] [place] [address], [place], [address], 08/12/2017 16:12:18 08/06/20 17 08/06/2017 drug scree n, urine chromate ur-mcnc <50 mcg/m L <50 normal NOEMI L Not Available [employer] [address] [place] [address], [address], 08/12/2017 16:12:18 08/06/20 17 08/06/2017 drug scree n, urine pH ur 8.4 hallman 3.5 - 9.0 normal NOEMI L Not Available [employer] [address] [place] [address], [address], 08/12/2017 16:12:18 08/06/20 17 08/06/2017 drug scree n, urine creat ur-mcnc 111 mg/dL >=2 normal NOEMI L Not Available [employer] [address] [place] [address], [address], 08/12/2017 16:12:18 08/06/20 17 08/06/2017 drug scree n, urine sp gr ur 1.0182 hallman >=1.00 20 normal NOEMI L Not Available [employer] [address] [place] [address], [address], 08/12/2017 16:12:18 Result Notes None recorded. Problems Name Problem SNOMED Code Status Onset Date Resolution Date Notes Provider Name and Address Organization Details Recorded Time Arthropath y 721379139 Active 2015 Not Available [facility] 6 10:18:55 Primary central sleep apnea 9538686056888 Active 2015 Not Available [employer] 6 10:18:55 Low back pain 077407792 Active 2015 Not Available [employer] 6 10:18:55 Impingemen t syndrome of shoulder region 132270241 Active 2015 Not Available [employer] 6 10:18:55 Lumbosacra l radiculopa thy 8733820 Active 2015 Not Available [employer] 6 10:18:55 Idiopathic osteoarthr itis 198443590 Active 2014 Not Available [employer] 6 10:18:55 Problem Notes None recorded. Procedures Surgical History Date Name Laterality Status Provider Name and Address Organization Details Recorded Time 01/28/20 18 Botox Initial completed Jennifer Quintana MD [address], [place], [address], [facility] 01/27/2018 16:07:03 11/05/19 18 Trigger Point Injection completed Jennifer Quintana MD [address], [place], [address], [facility] 11/05/2017 12:11:46 08/06/20 17 Trigger Point Injection completed MD [address], [place], [address], [facility] 08/06/2017 12:18:34 05/02/20 17 Trigger Point Injection completed Jennifer Quintana MD [address], [place], [address], [facility] 05/02/2017 14:55:38 04/17/20 17 EW Discography completed MD [address], [place], [address], [facility] 04/17/2017 13:38:35 01/24/20 17 EW 22g Transforaminal Epidural Steroid Injection completed MD [address], [place], [address], [facility] 01/23/2017 14:34:07 10/07/19 17 Rotator Cuff Surgery completed Pam Kilgore [facility] 01/27/2018 11:02:47 10/07/19 14 Knee Surgery completed Molly Pate [facility] 10/10/2016 09:07:15 10/07/19 12 Eye Surgery completed Molly Pate [facility] 10/10/2016 09:07:15 10/07/19 12 Knee Surgery completed Molly Pate [facility] 10/10/2016 09:07:15 10/07/19 11 Hand Surgery completed Molly Pate [facility] 10/10/2016 09:07:15 10/07/19 10 Hysterectomy completed Molly Pate [facility] 10/10/2016 09:07:15 10/07/19 10 Bladder sling completed Molly Pate [facility] 10/10/2016 09:07:15 10/07/18 95 Hand Surgery completed Molly Pate [facility] 10/10/2016 09:07:15 10/07/18 93 Eye Surgery completed Mollycolby Pate [facility] 10/10/2016 09:07:15 10/07/18 89 Gallbladder Surgery completed Mollycolby Pate [facility] 10/10/2016 09:07:15 Imaging Results None recorded. Procedure Notes None recorded. Medical Equipment None Reported. Allergies Allergen ID Allergen Name Allergen Category Reaction Reaction Severity Criticality Documentation Date Start Date Code Code System Note Provider Name and Address Organization Details Recorded Time 29557 Product containin g penicilli n (product) medicatio n Not available Not available Not available 08/08/20162010 18689 8001 SNOMED Comme nt: Repor vivi Year: 2010; Not Available [facility] 6 07:37:24 61261 penicilla mine medicatio n Not available Not available Not available 08/08/20162011 7975 RxNorm Sever ity: Unkno wn; Viviana Stanley [facility] 7 09:12:02 45379 sulfabenz amide Not available Not available Not available Not available 08/08/20162011 27961 RxNorm Sever ity: Unkno wn; Viviana Stanley [facility] 7 09:12:08 60108 Substance with sulfonami de structure and antibacte rial mechanism of action (substanc e) medicatio n Not available Not available Not available 08/08/20162010 04874 8003 SNOMED Comme nt: Repor vivi Year: 2010; Not Available [facility] 6 07:37:24 40844 latex environme nt,medica tion itching moderate Not available 10/10/2016 51948 91 RxNorm [facility] 7 09:07:13 Medications Name Sig Start [...] active Not Available Not Available Not Avai labflaco diclofenac 1 % topical gel active Not Available Not Available Not Available venlafaxine ER 150 mg tablet,exte nded release 24 hr take 1 daily 02/12 completed Not Available Not Available Not Available Vitals Date Recorded Body height Provider Name an d Address Organization Details Last Updated DateTime 01/27/2018 160.02 cm Pam Kilgore [facility] 01/27/2018 11:02:27 Date Recorded Body height Provider Name an d Address Organization Details Last Updated DateTime 04/28/2018 160.02 cm Pam Kilgore [facility] 04/28/2018 10:51:44 Date Recorded Body height Provider Name an d Address Organization Details Last Updated DateTime 05/28/2017 160.02 cm Sravani Hahn [facility] 05/28/2017 08:33:17 Date Recorded Body height Provider Name an d Address Organization Details Last Updated DateTime 08/06/2017 160.02 cm Jennifer Quintana MD [address], [place], [address], [facility] 08/06/2017 11:30:12 Social History Question Answer Notes LastModified by Organizat ion Details LastModified Time Tobacco Smoking Status Never Smoker Not Available [facility] 08/09/2020 04:06:17 What Is Your Level Of Caffeine Consumption? None [id number] Information not available 08/09/2020 How Much Tobacco Do You Chew? None [id number] Information not available 08/09/2020 Education 2 Year College [email or web address] Informatio n not available 10/10/2016 Which Of Your Hands Is Dominant? Right [id number] Information not available 08/09/2020 Marital Status [email or web address] Informatio n not available 01/27/2018 What Was The Date Of Your Most Recent Tobacco Screening? 04/28/2018 [id number] Information not available 08/09/2020 Sex: Unknown Functional Status Question Answer Note LastModified by Organization D etails LastModified Time What is your level of alcohol consumption? None [id number] Information not available 08/09/2020 Are you currently employed? No [id number] Information not available 08/09/2020 Mental Status None [...] SNOMED-CT Code Diagnosis ICD10 Code Diagnosis Note [id number] MATTY [place] MAIN OFFICE [address] [place] [address] 10/10/2016 08:30:52 10/10/2016 09:40:07 Full thickness rotator cuff tear 373587608 M75.122 IMAGING: MRI left shoulder shows a [...] like to proceed. Informed consent was obtained. 66075 MATTY [facility] MAIN OFFICE [address] [place] [address] 10/15/2016 08:11:52 10/15/2016 09:25:39 Full thickness rotator cuff tear 641390821 M75.122 Impingemen t syndrome of shoulder region 198102859 M75.42 Lumbosacra l radiculopathy 6932366 M54.16 Primary ce ntral sleep apnea 5677141274 101 G47.31 [id number] Ino Carias MD MAIN OFFICE [address] [place] [address] 10/24/2016 08:08:01 10/24/2016 08:57:00 History of arthroscopic procedure on shoulder 840744053 Z98.890 IMPRESSION : 2 Weeks s/p left [...] 4 weeks History of major orthopedic surgery 979301972 Z98.890 [id number] Ino Carias MD MAIN OFFICE [address] [place] [address] 11/28/2016 08:08:37 11/28/2016 08:31:35 History of arthroscopic procedure on shoulder 954483239 Z98.890 she is 6 weeks out now doing well she can discontinu e her sling. No active range of motion yet. Continue protocol. Follow-up 6 weeks. [id number] Ino Carias MD MAIN OFFICE [address] [place] [address] 01/09/2017 09:18:11 01/09/2017 10:26:53 History of arthroscopic procedure on shoulder 157673761 Z98.890 she is 12 weeks out now and she is doing very well. Recommend that she graduated from physical therapy to a home exercise program. Recommende d that she continue this for about 2 months. At this point she can follow up as needed. Patient was agreeable and all questions were answered today. [id number] Jennifer Quintana MD MAIN OFFICE [address] [place] [address] 01/10/2017 09:34:37 01/10/2017 11:28:59 Pain of joint of ankle and/or foot 893385445 M25.579 please obtain 3 views of the bilateral ankles and bilateral feet next appointmen t if she is still having pain after the injections . Consider physical therapy. Lumbar radiculopathy 128 960163 M54.16 recommend bilateral S1 nerve blocks. Fibromyalgia 768410207 M 79.7 Low back pain 554171303 M54.5 [id number] Jennifer Quintana MD PAIN CENTER [address] [place] [address] 01/23/2017 13:52:32 01/24/2017 14:45:48 Lumbar radiculopathy 432555114 M54.16 recommend bilateral S1 nerve blocks. [id number] Jennifer Quintana MD MAIN OFFICE [address] [place] [address] 03/12/2017 10:36:03 03/12/2017 11:18:45 Migraine 35604623 G43.909 advised weaning from butalbital as she is able. She has. She failed Topamax. She does not qualify for Botox. Lumbar radiculopathy 128 831975 M54.16 Neck pain 64814034 M54.2 Metatarsalgia 77239317 M 77.40 [id number] Volodymyr Bingham MD MAIN OFFICE [address] [place] [address] 03/21/2017 13:16:21 03/21/2017 14:28:53 Low back pain 812578454 M54.5 Neck pain 72618241 M54.2 Lumbosacra l spondylosis 076154287 M47.817 [id number] Volodymyr Bingham MD MAIN OFFICE [address] [place] [address] 03/28/2017 14:53:55 03/28/2017 15:23:41 Low back pain 278571128 M54.5 Neck pain 59719748 M54.2 Lumbosacra l spondylosis 246997107 M47.817 Cervical spondylosis 387 551406 M47.812 Degenerati ve spondylolisthesis 6667837 M43.19 M43.16 M43.17 [id number] Jennifer Quintana MD MAIN OFFICE [address] [place] [address] 04/02/2017 12:37:04 04/02/2017 13:42:09 Lumbar spondylosis 639607811 M47.896 Lumbar radiculopathy 128 863464 M54.16 [id number] Jennifer Quintana MD PAIN CENTER [address] [place] [address] 04/17/2017 11:59:28 04/18/2017 08:34:06 Lumbosacral spondylosis without myelopathy 66914323 M47.817 [id number] Jennifer Quintana MD PAIN CENTER [address] [place] [address] 05/02/2017 12:30:38 05/02/2017 13:44:03 Low back pain 833771097 M54.5 Neck pain 96771460 M54.2 [id number] Volodymyr Bingham MD MAIN OFFICE [address] [place] [address] 05/28/2017 08:22:27 05/28/2017 09:28:27 Spondylolisthesis 144086702 M43.19 Lumbosacra l spondylosis 990818732 M47.817 Low back pain 075357073 M54.5 Lumbar dis cogenic pain 070860462 M51.26 [id number] Jennifer Quintana MD MAIN OFFICE [address] [place] [address] 08/06/2017 10:58:18 08/06/2017 12:27:27 Long-term drug therapy 952798415 Z79.891 Low back pain 469006016 M54.5 Cervical s pondylosis with radiculopathy 620706418 M47.22 [id number] Jennifer Quintana MD MAIN OFFICE [address] [place] [address] 11/05/2017 10:50:11 11/05/2017 12:05:58 Neck pain 39606610 M54.2 Migraine without aura 56 273594 G43.009 urine drug screen as per protocol. [id number] Jennifer Quintana MD MAIN OFFICE [address] [place] [address] 01/27/2018 10:34:24 01/27/2018 12:02:53 Long-term drug therapy 490939627 Z79.891 Refractory migraine without aura 696798149 G43.719 [id number] Jennifer Quintana MD MAIN OFFICE [address] [place] [address] 04/28/2018 10:32:18 04/28/2018 11:44:58 Neck pain 12320351 M54.2 given slight anterolist hesis of C3 on 4, will recommend follow-up with Dr. Apodaca. Cervical s pondylosis with radiculopathy 489767748 M47.22 Migraine 15091440 G43.90 9 Health Concerns Section Related Observation LastModified by Organization Detai ls LastModified Time None Recorded Concern Status LastModified by Organization Details LastModified Time None Recorded Advance Directives Directive None Recorded Payers Insurance Date Sequence Insurance Name Policy Number Policy Ramirez Covered Member ID Ramirez Member ID Guarantor Name 05/27/2018 1 MEDICARE B-OR: [employer] Laura Ulloa Hdz [id number] Laura Ulloa Wilder 05/27/2018 2 [facility] - FEP [id number] Laura Hdz [id number] Laura Hdz 05/27/2018 [facility] ([facility]IC[facility]) Laura Hdz [id number] Laura Hdz Notes Date Note Type Note [...] to discuss surgical options. Srini Jarquin PA-C [address], [place], [address], [facility] 06/06/2017 21:36:28 7 text/html Pain Management Follow-UpReported bypatient.Current level of painMild pain: 110 to 2/10 Location:lower back UDT/SOAP:UDT: (MTD BAR); [...] misuse or aberrant behavior. Jennifer Quintana MD [address] [facility] [address], [place], [address], [facility] 08/06/2017 12:59:59 8 text/html Pain Management [...] reduce medication if possible. Jennifer Quintana MD [address], [place], [address], [facility] 11/05/2017 12:12:15 8 text/html Pt presents for her Botox injection today for migraines. Current pain level 1/10. Medications are helping. Denies recent infection or fever. Jennifer Quintana MD [address], [place], [address], [facility] 01/27/2018 16:14:48 8 text/html Pain [...] medications are doing well. current pain level 3/10. Jennifer Quintana MD [address] [facility],[address], [place], [address], [facility] 05/04/2018 15:26:40 OBGyn Episode No OBEpisode recorded.
--- OUTSIDE RECORDS SUMMARY | 2025-04-08 09:06 | XMS_ITS | Clinical Summary ---
Author Organization [facility] Facility Address [address] [place] [id number] Care Team Providers Care Produce Shipper Name Role Phone Unavailable Primary Care Provider [...] of 1 - PCV) 2007 Influenza Vaccine (#1) 2025 Hepatitis B Vaccine Aged Out No longe r eligible based on patient's age to complete this topic [id number] Medicare
--- OUTSIDE RECORDS SUMMARY | 2025-04-08 09:06 | XMS_ITS | Clinical Summary ---
Author Organization [address] [facility] Address [address] [place] [address] Phone Care Team Providers Care Engineering Group Leader Name Role Phone Osmany Browning MD Primary Care Provider [phone] Allergies Active Allergy Reactions Criticality Noted Date [...] Arthritis of finger of both hands 12/08/2024 Surgical History Surgery Date Site/Laterality Comments CARPAL [...] age to complete this topic Insurance MEDICARE [facility] Care Teams Engineering Group Leader Relationship Specialty Start Date End Date Osmany Browning MD [address] [place] [address] Dr [address] TRISTAN Bro PCP - General Internal Medicine 12/08/24
[2025-04-08 10:06] LABS: MANUAL DIFF FLAG NO
[2025-04-08 10:17] LABS: Hematocrit 39.9 % (37.0-47.0); Hemoglobin 13.3 g/dl (12.0-16.0); Imm Gran Abs Auto 0.01 X10*3/uL (0.00-0.03); Imm Gran Pct Auto 0.2 % (0.0-0.4); Lymphocytes Absolute Auto 2.5 X10*3/uL (1.2-4.9); Mean Corpuscular HGB Conc 33.3 g/dl (31.0-35.0); Mean Corpuscular Hemoglobin 30.9 pg (27.0-33.0); Mean Corpuscular Volume 92.6 fL (80.0-98.0); NRBC Abs Auto 0.000 X10*3/uL (0.0-0.012); NRBC Pct Auto 0.0 /100WBC (0.0-0.2); Platelet Count 325 X10*3/uL (160-400); Red Blood Count 4.31 X10*6/uL (4.20-5.50); White Blood Count 5.9 X10*3/uL (4.8-10.8)
[2025-04-08 11:09] LABS: Alanine Aminotransferase 30 U/L (0-31); Albumin Level 4.2 g/dL (3.5-5.0); Alkaline Phosphatase 93 U/L (39-117); Anion Gap 12 (12-20); Aspartate Amino Transferase 36 U/L (5-31); Blood Urea Nitrogen 9 mg/dL (9-16); Calcium 9.0 mg/dL (8.4-10.2); Carbon Dioxide 28 mmol/L (22-29); Chloride 105 mmol/L (96-108); Cholesterol 172 mg/dL (<200); Estimated Glomerular Filt Rate > 60; HDL Cholesterol 63 mg/dL (>40); Potassium 4.4 mmol/L (3.3-5.1); Sodium 141 mmol/L (135-145); Total Protein 7.0 g/dL (6.5-8.0); Triglycerides 74 mg/dL (<150)
== END 2025-04-08 08:56 | disposition home or self-care (01) ==
LOC: HO.HMGCLDS 08:55
PROVIDERS: PCP Internal Medicine; Visit Provider Internal Medicine
DX: D64.9 Anemia, unspecified (principal); E78.00 Pure hypercholesterolemia, unspecified
CPT/HCPCS: 36415; 80053; 80061; 85025

== ENCOUNTER 2025-04-14 13:08 | Outpatient (AMB) | payer MEDICARE, BC, SELFPAY ==
[2025-04-14 13:12] VITALS: BP 110/76; PULSE 89; O2SAT 97; BMI 38.3
--- NOTE | 2025-04-14 13:12 | A.OFFPC_ITS ---
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 Required: No Accompanied by: Self / Same As Patient Allergies Sulfa (Sulfonamide Antibiotics) (SULFA (SULFONAMIDE ANTIBIOTICS)) Allergy (Severe, Verified 04/14/25 13:37) ANAPHYLAXIS Penicillins (PENICILLINS) Allergy (Mild, Verified 04/14/25 13:37) RASH latex Adverse Reaction (Severe, Verified 04/14/25 13:37) Rash doxycycline Adverse Reaction (Mild, Verified 04/14/25 13:37) Abdominal Pain Medication List - Last Reconciled 04/14/25 by Osmany Browning MD albuterol sulfate 90 mcg/actuation 2 puffs inhalation Q6H PRN atorvastatin 10 mg PO DAILY 90 days luejdjqewe-lqeriad-inxhrypf 50-325-40 mg 1 cap PO Q6-8H PRN 30 days calcium carbonate (Calcium 600) 600 mg PO DAILY cholecalciferol (vitamin D3) (Vitamin D3) 25 mcg PO DAILY fluticasone propionate 50 mcg/actuation 1 spray intranasal DAILY lidocaine 5% 1 patch topical DAILY loratadine (Claritin) 10 mg PO BEDTIME lorazepam 0.5 mg PO DAILY PRN 30 days metaxalone 800 mg PO TID PRN kotkmnlmpgve-wruhuate-apxjhn (Multivitamin 50 Plus tablet) 1 tab PO DAILY olopatadine 0.7% (Pataday Once Daily Relief) 1 drp ophthalmic (eye) Q24H PRN omeprazole 20 mg PO DAILY@0630 prednisone 20 mg PO DAILY 3 days pregabalin 75 mg PO BID 30 days ropinirole 1 mg PO BEDTIME 90 days sumatriptan succinate 100 mg PO DAILY PRN 30 days tramadol 100 mg (2 x 50 mg) PO Q6H PRN 48 days venlafaxine ER 150 mg PO DAILY zolpidem ER 12.5 mg PO BEDTIME PRN 30 days Tobacco use date assessed: 04/14/25 Fall risk assessment: No Falls in past year Last assessed Fall Risk: 04/14/25 Dental Screening Dental Screen Date: 04/14/25 Did you have a dental visit in the last 12 months?: Yes Did you have a dental problem in the last 6 months where you did not have access to dental care?: No Was dental information given to patient?: Patient has dentist HPI 4mth f/u HPI Details Patient comes in today for her follow up visit States that she feels okay She denies any headaches but reports experiencing a couple of bouts of dizziness/vertigo recently States that she took some OTC Dramamine and her symptoms gradually subsided - states that these have not recurred over the past week She denies any chest pains, no increased SOB No nausea/vomiting, no abdominal pain States that she's had on and off loose stools lately She has not changed her diet at all recently and is not sure what is going on here and is requesting for a referral to see Dr. Rebollar (who she has seen in the past) for further evaluation States that she has (+) Hx of celiac disease but does not feel that her recent diarrhea are diet-related She is also requesting for a referral to see Dr. Lanza - recalls that Dr. Lanza was planning to start botox injection on her for her left hand muscle contractures but she never got started on this and it has been almost 2 years now since she was last seen by Dr. Lanza She had her follow up labs done last week - to discuss her results [facility] Medical History Degenerative joint disease of shoulder, right Osteoarthritis Arthritis Back pain Celiac sprue GERD (gastroesophageal reflux disease) Anxiety Numbness Sepsis Sleep apnea Sacroiliac dysfunction Migraine Burn injury Sinusitis chronic, frontal Osteopenia Obesity (BMI 30-39.9) Major depression, recurrent Insomnia Primary osteoarthritis Urinary frequency Mitral valve prolapse Allergic rhinitis Gastritis Pure hypercholesterolemia Restless leg syndrome Cervicalgia Lumbar degenerative disc disease Fibromyalgia Surgical History History of lumbar spinal fusion History of bilateral knee arthroplasty Hx of eye surgery History of cataract surgery History of carpal tunnel release History of bunionectomy S/P GINGER-BSO (total abdominal hysterectomy and bilateral salpingo-oophorectomy) History of repair of rotator cuff History of arthroscopy of both knees Hx of cholecystectomy Hx of endoscopy History of colonoscopy Family History Father History of cancer Mother History of cancer History of high blood pressure Hx of diabetes mellitus Social History Household Members: Significant Other Household Members Other:: DAUGHTER AND HER FAMILY Housing: House Are you a primary child care teacher to a significant other at home: No Do you presently have visiting nurse or other home services: No Alcohol intake: current Alcohol intake frequency: holidays/special occasions only Patient Tobacco Use Status: Never used Tobacco Tobacco use type: Cigarette e-Cigarette/Vaping Use: Never Used Second Hand Smoke Exposure: Yes service: No Current occupational status: retired Cognitive needs: No Hearing needs: No Vision needs: Yes Questionnaire PHQ-9 Over the last 2 weeks, how often have you been bothered by any of the following problems? 1. Little interest or pleasure in doing things: several days 2. Feeling down, depressed, or hopeless: several days 3. Trouble falling or staying asleep, or sleeping too much: more than half the days 4. Feeling tired or having little energy: several days 5. Poor appetite or overeating: not at all 6. Feeling bad about yourself - or that you are a failure or have let yourself or your family down: not at all 7. Trouble concentrating on things, such as reading the newspaper or watching television: several days 8. Moving or speaking so slowly that other people could have noticed. Or the opposite - being so fidgety or restless that you have been moving around a lot more than usual: not at all 9. Thoughts that you would be better off or of hurting yourself in some way: not at all Total score: 6 Depression Screening Interpretation: Positive Depression Screening Follow-up: Existing condition and In treatment Depression Screening Done: Yes 59147 - PHQ-9 Billing: Yes Source: Developed by Drs. Elroy Roberts, Sunni Amaro, Yadiel Maya and colleagues, with an educational og from [employer]. Thrive Questionnaire Date Thrive assessed: 04/14/25 I am a: Patient What is your living situation today?: I have a steady place to live Within the past 12 months, did the food you bought not last and you didn't have the money to get more?: Never true Within the past 12 months, did you worry whether your food would run out before you got money to buy more?: Never true Do you have trouble paying for medicines?: No Do you have trouble getting transportation to medical appointments?: No Do you have trouble paying your heating and electricity bill?: No Do you have trouble taking care of your child, family member or friend?: No Do you have trouble with day-to-day activities such as bathing, preparing meals, shopping, managing finances, etc.?: No Are you currently unemployed and looking for a job?: No Are you interested in more education?: No Please select the resources that you would like help with: None Currently or been in a relationship where the following occur: No concerns reported THRIVE Score: 0 AUDIT C Alcohol Use Questionnaire (AUDIT-C) 1. How often do you have a drink containing alcohol?: 2-4 times a month 2. How many drinks containing alcohol do you have on a typical day when you are drinking?: 1 or 2 3. How often do you have six or more drinks on one occasion?: Never Total Score: 2 Score Reviewed/Action Taken: Yes PANFILO-7 AMB Questionnaire PANFILO-7 Date PANFILO - 7 assessed: 04/14/25 Feeling nervous, anxious, or on edge: 0 = Not at all Not being able to stop or control worryin = Several days Worrying too much about different things: 1 = Several days Trouble relaxin = Several days Being so restless that it is hard to sit still: 1 = Several days Becoming easily annoyed or irritable: 0 = Not at all Feeling afraid as if something awful might happen: 0 = Not at all Total PANFILO-7 score (0-4 normal; 5-9 mild; 10-14 moderate; 15-21 severe): 4 Source: Developed by Drs. Elryo Roberts, Sunni Amaro, Yadiel Maya and colleagues, with an educational og from [employer]. Review of Systems Const Denies chills, Denies fatigue, Denies fever(s) and Denies headache(s) ENT Denies dysphagia, Reports dizziness (occasional lately - see HPI), Denies otalgia, Denies headache(s), Reports neck pain, Denies odynophagia and Denies sore throat Card Denies chest pain, Denies palpitations and Denies dyspnea Resp Denies chest congestion, Denies cough and Denies dyspnea GI Denies abdominal pain, Denies constipation, Denies dysphagia, Denies heartburn, Reports loose stools (on and off lately - see HPI), Denies nausea, Denies odynophagia and Denies vomiting Denies difficulty voiding, Denies nocturia, Denies dysuria and Denies urinary urgency Musc Details: recurrent sharp right inguinal pain Reports back pain (chronic), Reports arthralgias (involving multiple joints) and Reports neck pain Skin/Breast Details: (+) cyst on the DIP of the right thumb - see HPI Denies rash Neuro Reports dizziness (occasional lately - see HPI), Denies headache(s), Reports paresthesias (in both hands, on and off) and Reports tremor(s) (on and off in the left hand) Psych Reports anxiety Endo Denies fatigue and Denies palpitations Physical exam (Primary Care) Vital Signs: Last Vital Signs Pulse 89 04/14/25 13:12 BP 110/76 04/14/25 13:12 Pulse Ox 97 04/14/25 13:12 Oxygen Delivery Method Room Air 04/14/25 13:12 BMI result Body Mass Index 38.3 Tobacco/Smoking Status: Tobacco use Status Tobacco use date assessed 04/14/25 04/14/25 13:18 Patient Tobacco Use Status Never used Tobacco 04/14/25 13:18 Tobacco use type Cigarette 04/14/25 13:18 e-Cigarette/Vaping Use Never Used 04/14/25 13:18 PHQ-9: PHQ-9 Score PHQ-9: Total score 6 04/14/25 13:18 Depression Screening Interpretation: Positive Depression Screening Follow-up: Existing condition and In treatment Thrive Assessment: Date of Thrive Assessment Date Thrive assessed 04/14/25 04/14/25 13:18 Currently or been in a relationship where the following occur: No concerns reported Const General: no acute distress and alert HENMT Ears: TM's normal bilaterally and EAC's normal Face and sinus: Yes sinus tenderness (mild, on the left side) Throat: Yes posterior oropharynx normal and Yes tonsils normal (no TP congestion noted) Neck Neck: No lymphadenopathy and Yes tender Thyroid: Thyroid normal Resp Auscultation: clear to auscultation bilaterally, no rales and no wheezes Cardio Rate: regular rate Rhythm: regular rhythm Heart sounds: Murmur heart sound present systolic holo, soft and at the left sternal border GI Palpation (GI): Soft to palpation, nontender and no guarding Auscultation: normal bowel sounds General: Yes no CVA tenderness Back/Spine/Pelvis Other: (+) right inguinal tenderness on deep palpation Back: no CVA tenderness Cervical Spine: Cervical spine tenderness Thoracic/Lumbar Spine: lumbar spinal tenderness Sacroiliac joints: bilaterally tender to palpation Skin Rashes: no rashes Extrem General: Yes no clubbing, cyanosis or edema Right upper extremity: shoulder/upper arm Details: tenderness Location: of the A-C joint; no swelling and wrist Details: tenderness and Phalen's negative Left upper extremity: wrist ((+) mild tenderness - (-) Phalen's) and hand Details: normal to inspection (but (+) tremors noted) Results Reviewed Results Reviewed: Laboratory Tests 04/08/25 09:02 WBC 5.9 Hgb 13.3 Hct 39.9 Plt Count 325 Sodium 141 Potassium 4.4 Creatinine 0.63 Estimated GFR > 60 Fasting Glucose 92 Calcium 9.0 AST 36 H ALT 30 Triglycerides 74 Cholesterol 172 LDL Cholesterol, Calc 95 HDL Cholesterol 63 Coding Level of Care Code Est Pt Level 4 (38938) Diagnoses Diarrhea, unspecified type R19.7 Diarrhea type: unspecified type Celiac disease/sprue K90.0 Contracture of muscle, left hand M62.442 Tremor of left hand R25.1 Pure hypercholesterolemia E78.00 Mitral valve prolapse I34.1 Migraine without status migrainosus, not intractable, unspecified migraine type G43.909 Migraine type: unspecified Status migrainosus presence: without status migrainosus Intractability: not intractable Gastritis without bleeding, unspecified chronicity, unspecified gastritis type K29.70 Gastritis type: unspecified gastritis Chronicity: unspecified Gastritis bleeding: without bleeding Allergic rhinitis, unspecified seasonality, unspecified trigger J30.9 Allergic rhinitis trigger: unspecified Allergic rhinitis seasonality: unspecified Fibromyalgia M79.7 Degeneration of intervertebral disc of lumbar region with discogenic back pain and lower extremity pain M51.362 Disc-related pain type: discogenic back pain and lower extremity pain Cervicalgia M54.2 Primary osteoarthritis, unspecified site M19.91 Osteoarthritis location: unspecified site Osteoarthritis of right shoulder, unspecified osteoarthritis type M19.011 Osteoarthritis type: unspecified Paresthesia of hand, bilateral R20.2 Restless leg syndrome G25.81 Insomnia, unspecified type G47.00 Insomnia type: unspecified Episode of recurrent major depressive disorder, unspecified depression episode severity F33.9 Active/Remission status: currently active Major depression episode severity: unspecified Obesity (BMI 30-39.9) E66.9 Additional Codes PHQ-9 - 52956 - PHQ-9 Billing: Yes ([id number]) Assessment & Plan Assessment & Plan (1) Frequent loose stools: Code(s): R19.7 - Diarrhea, unspecified Category: Medical Qualifiers: Diarrhea type: unspecified type Qualified Code(s): R19.7 - Diarrhea, unspecified Plan: (+) Hx of celiac disease Per request, will refer patient to GI (Dr. Rebollar) for further evaluation and management (2) Celiac disease/sprue: Code(s): K90.0 - Celiac disease Category: Medical Plan: (+) Hx of celiac disease Patient's labs done a couple of years ago still showed the presence of anti- Gliadin and transglutaminase IgA antibodies consistent with celiac disease Reinforced strict compliance with a gluten free diet (3) Contracture of muscle, left hand: Code(s): M62.442 - Contracture of muscle, left hand Category: Medical Plan: Per request, will refer patient again to Dr. Lanza as she is hoping to get started on the Botox injection that was previously planned a couple of years ago but which was never implemented (4) Tremor of left hand: Code(s): R25.1 - Tremor, unspecified Category: Medical Plan: She was advised that her EMG & NCV from December 2022 came out normal Follow up with neurology as scheduled States that botox injection was originally planned for the dystonia on her upper extremities but she could not afford the co-pay that she had to pay out of pocket but she now wants to revisit this - referral to neurology placed, per her request (5) Pure hypercholesterolemia: Code(s): E78.00 - Pure hypercholesterolemia, unspecified Category: Medical Plan: Results of her labs done last week reviewed and discussed with patient Reinforced low cholesterol diet Continue Atorvastatin 10 mg QD Will recheck her labs and fasting lipids in 4 months for follow up (6) Mitral valve prolapse: Comment: Echocardiogram done in December 2019 showed (+) mild MVP, mild to moderate TR; LV systolic function is low normal with LVEF of around 50-55% Code(s): I34.1 - Nonrheumatic mitral (valve) prolapse Category: Medical Plan: Follow up with cardiology as scheduled for continuing surveillance Will consider sending patient for an updated echocardiogram for follow up later this year (7) Migraine: Code(s): G43.909 - Migraine, unspecified, not intractable, without status migrainosus Category: Medical Qualifiers: Migraine type: unspecified Status migrainosus presence: without status migrainosus Intractability: not intractable Qualified Code(s): G43.909 - Migraine, unspecified, not intractable, without status migrainosus Plan: Stable/controlled -? reinforced avoidance of migraine triggers Continue Sumatriptan 100 mg once a day as needed and Fiorinal capsules 50-325-40 mg 1 capsule every 6-8 hours as needed Follow up with neurology as scheduled (8) Gastritis: Code(s): K29.70 - Gastritis, unspecified, without bleeding Category: Medical Qualifiers: Gastritis type: unspecified gastritis Chronicity: unspecified Gastritis bleeding: without bleeding Qualified Code(s): K29.70 - Gastritis, unspecified, without bleeding Plan: EGD done in 2019 revealed (+) gastric erythema, duodenal erosion with strictures; biopsies came back negative for malignancies Patient had repeat EGD? with dilation of strictures done a couple of years later in 2021 Continue Omeprazole 20 mg QD Follow-up with GI as scheduled (9) Allergic rhinitis: Code(s): J30.9 - Allergic rhinitis, unspecified Category: Medical Qualifiers: Allergic rhinitis trigger: unspecified Allergic rhinitis seasonality: unspecified Qualified Code(s): J30.9 - Allergic rhinitis, unspecified Plan: Continue Fluticasone 50 mcg nasal spray QD PRN (10) Fibromyalgia: Code(s): M79.7 - Fibromyalgia Category: Medical Plan: Continue Lyrica 75 mg BID She is encouraged again to continue with regular exercises to help manage her fibromyalgia symptoms better (11) Lumbar degenerative disc disease: Comment: Grade 1-2 anterolisthesis L5/S1 with moderate to severe bilateral L5 foraminal narrowing Code(s): M51.36 - Other intervertebral disc degeneration, lumbar region Category: Medical Qualifiers: Disc-related pain type: discogenic back pain and lower extremity pain Qualified Code(s): M51.362 - Other intervertebral disc degeneration, lumbar region with discogenic back pain and lower extremity pain Plan: Reinforced activity and weight-lifting restrictions She was going to [facility] for facet injections and pain management in the past but is now seeing [facility] Pain Management She has had several injections into her lower back over the past year but did not seem to have responded much to them so far although she has been receiving trigger point injections into her lower back with some relief recently She also recently underwent L5-S1 basivertebral nerve ablation done with pain management a few months ago but unfortunately did not respond effectively to the treatment She was recently referred by pain management to Dr. Erickson for further evaluation and she recently underwent L4-5, L5-S1 ALIF - procedure on 07/14/2024 - she now feels that the surgery has helped a lot Follow up with neurosurgery as scheduled Continue Tramadol 50 mg 2 tablets every 6 hours as needed, Lidocaine patch 5% 1 patch for 12 hours daily as needed and Metaxalone 800 mg TID PRN Follow up with pain management as scheduled (12) Cervicalgia: Code(s): M54.2 - Cervicalgia Category: Medical Plan: Follow up with [facility] pain management as scheduled She has been seen by Dr. Erickson for this as well and was advised that her recent cervical spine MRI done in February 2024 revealed no acute neurologic impingement and there are no surgical indications for her neck at this time (13) Primary osteoarthritis: Code(s): M19.91 - Primary osteoarthritis, unspecified site Category: Medical Qualifiers: Osteoarthritis location: unspecified site Qualified Code(s): M19.91 - Primary osteoarthritis, unspecified site Plan: Continue OTC Tylenol PRN for pain; Tramadol also helps She was taking NSAIDs in the past but was advised to stop last year when she was diagnosed with gastritis (14) Degenerative joint disease of shoulder, right: Code(s): M19.011 - Primary osteoarthritis, right shoulder Category: Medical Qualifiers: Osteoarthritis type: unspecified Qualified Code(s): M19.011 - Primary osteoarthritis, right shoulder Plan: Right shoulder x-rays done a few months ago revealed (+) advanced degenerative changes with narrowing of the subacromial space concerning for rotator cuff pathology Follow up with orthopedics as scheduled (15) Paresthesia of hand, bilateral: Code(s): R20.2 - Paresthesia of skin Category: Medical Plan: (+) Hx of CTS Repeat EMG & NCV done in December 2022 came out NORMAL (16) Restless leg syndrome: Code(s): G25.81 - Restless legs syndrome Category: Medical Plan: Continue Ropinirole 0.5 mg Q HS - symptoms have been well-controlled on her cu rrent Rx (17) Insomnia: Code(s): G47.00 - Insomnia, unspecified Category: Medical Qualifiers: Insomnia type: unspecified Qualified Code(s): G47.00 - Insomnia, unspecified Plan: Sleep hygiene reinforced Continue Zolpidem ER 12.5 mg Q HS PRN (18) Major depression, recurrent: Code(s): F33.9 - Major depressive disorder, recurrent, unspecified Category: Medical Qualifiers: Active/Remission status: currently active Major depression episode severity: unspecified Qualified Code(s): F33.9 - Major depressive disorder, recurrent, unspecified Plan: Continue Venlafaxine ER 150 mg QD (19) Obesity (BMI 30-39.9): Code(s): E66.9 - Obesity, unspecified Category: Medical Plan: Reinforced diet; exercise and weight loss are unrealistic expectations at present due to patient's numerous physical issues and comorbidities Plan Follow up in 4 months Orders: Orders Comprehensive [place]. Panel Fast 4 Months E78.00 - Pure hypercholesterolemia, un specified Lipid Panel 4 Months E78.00 - Pure hypercholesterolemia, unspecified Vitamin D 25-OH Total 4 Months E55.9 - Vitamin D deficiency, unspecified Complete Blood Count Auto Diff 4 Months D64.9 - Anemia, unspecified TSH reflex Free T4 4 Months E78.00 - Pure hypercholesterolemia, unspecified UA CC w/rflx Micro + Cult 4 Months R30.0 - Dysuria Referrals Gastroenterology Referral R19.7 - Diarrhea, unspecified Neurology Referral M62.442 - Contracture of muscle, left hand Medications: Refilled lidocaine 5% 1 patch topical DAILY 30 patches 3RF
--- OUTSIDE RECORDS SUMMARY | 2025-04-14 13:59 | XMS_ITS | Clinical Summary ---
Author Organization [facility] Facility Address [address] [place] [id number] Care Team Providers Care Speech Teacher Name Role Phone Unavailable Primary Care Provider [...] patient's age to complete this topic Insurance [id number] Medicare
--- OUTSIDE RECORDS SUMMARY | 2025-04-14 13:59 | XMS_ITS | Clinical Summary ---
Author Organization [facility] Address [address] [place] [address] Phone Care Team Providers Care Category Director Name Role Phone Osmany Browning MD Primary Care Provider [phone] Allergies Active Allergy Reactions Criticality Noted Date [...] 2025 08/06/2024, 11/22/2023, 02/19/2023, Additional history exists Influenza Vaccine (#1) 2025 , 07/23/2023, 07/11/2022, Additional history exists Pneumococcal Vaccine: 50+ Years Completed 01/30/2023, 06/28/2020 RSV Immunization Adult Patients Completed 11/22/2023 HIB Vaccines Aged Out No longer eligi [...] age to complete this topic Insurance MEDICARE [facility] Care Teams Category Director Relationship Specialty Start Date End Date Osmany Browning MD [address] [place] [address] [address] PCP - General Internal Medicine 12/08/24
--- OUTSIDE RECORDS SUMMARY | 2025-04-14 13:59 | XMS_ITS | Data Portability ---
Author Organization [facility], MAIN OFFICE Address [address] [place] [address] Care Team Providers Care Web Administrator Name Role Phone ROSIO MARES Primary Care Provider [phone] Assessment Encounter Date Assessment Date Assessment LastModified by Organization Details LastModified Time 05/28/2017 05/28/2017 Dr Bingham in to s ee the patient. SCANS: Lumbar MRI (done at [facility] on 03/26/2017) findings/interpreta tion: Multilevel [...] recorded. Lab drug screen, urine 2017 018 [email or web address] Main Office, [address] [facility], [address], [place], [address], 8 16:36:58 drug screen, urine 2016 017 CARA Main Office, [address], [address], [place], [address], 7 14:46:03 Referral general surgeon referral - possible ALIF L4/5 L5/S1 please call patient with appt 2016 017 [email or web address] Duran Paris MD, [address], [place], [address], 7 21:27:09 Procedures None recorded. Surgeries None recorded. Imaging XR, cervical spine, 4 or 5 view 2017 018 [email or web address] Main Office, [address], [address], [place], [address], 8 08:25:32 Medication Orders hydrocodone 10 mg-acetamin ophen 325 mg tablet 2016 017 [email or web address] Not available 7 12:54:37 Patient Targets Encounter Date Encounter Id Patient Goals Patient Target Last Modified By Organization Details Last Modified Time 08/06/2017 [id number] [facility] record checked. Low risk UDTBased on the [...] marijuana, meperidine, methadone, opiates, tapentadol, and tramadol. Not available 08/06/2017 12:59:51 11/05/2017 [id number] we'll continue current medications. [facility] record checked. Recommend Botox for migraines. [email or web address] Not available 11/05/2017 12:11:16 04/28/2018 [id number] [employer] website checked. Continue hydrocodone, Lidoderm patches, Fioricet, Arthrotec, Botox her headaches. [email or web address] Not available 05/04/2018 15:26:02 Patient Instructions Encounter Date Encounter Id Patient Instructions Last Modified By Organization Details Last Modified Time 11/05/2017 [id number] neck pain: care instructions [email or web address] Not available 11/05/2017 12:12:08 04/28/2018 [id number] neck pain: care instructions [email or web address] Not available 04/29/2018 19:29:13 Reason for Referral General Surgeon Referral for Spondylolisthesis consideration of ALIF possible ALIF L4/5 L5/S1 please call patient with appt Referring Physician: Volodymyr Bingham, Orthopedic Surgery, Encounter Date: 05/28/2017 Results Created Date Observation Date Name Description Value Unit Range Abnormal Flag Note LastModifiedBy Organization Detail LastModifiedTime 08/06/20 17 08/06/2017 drug scree n, [place] 72509 NG/mL >=5 normal COMPL IANT: Test resul t is consi stent and expec vivi with presc ribed drug. Not Available Earlier Media [address] [place] [address], [address], 08/12/2017 16:12:18 08/06/20 17 08/06/2017 drug scree n, urine methadone ur CMP 38995 NG/mL >=200 normal COMPL IANT: Test resul t is consi stent and expec vivi with presc ribed drug. Not Available Earlier Media [address] [place] [address], [address], 08/12/2017 16:12:18 08/06/20 17 08/06/2017 drug scree n, urine zolpidem ur CMP 8050 NG/mL >=4 normal COMPL IANT: Test resul t is consi stent and expec vivi with presc ribed drug. Not Available Earlier Media [address] [place], [address], 08/12/2017 16:12:18 08/06/20 17 08/06/2017 drug scree n, urine pregabalin ur CMP 115 mcg/m L >=5 normal COMPL IANT: Test resul t is consi stent and expec vivi with presc ribed drug. Not Available Earlier Media [address] [place] [address] [place], [address], 08/12/2017 16:12:18 08/06/20 17 08/06/2017 drug scree n, urine butalbital ur CMP 1990 NG/mL >=200 normal COMPL IANT: Test resul t is consi stent and expec vivi with presc ribed drug. Not Available Earlier Media [address] [place] [address], [place], [address], 08/12/2017 16:12:18 08/06/20 17 08/06/2017 drug scree n, urine cathinones synthetic ur ql scn <25 NG/mL >=25 NONE DETEC VIVI Not Available Earlier Media [address] [place] [address], [place], [address], 08/12/2017 16:12:18 08/06/20 17 08/06/2017 drug scree n, urine buprenorphin e ur ql cfm <1 NG/mL >=1 NONE DETEC VIVI Not Available Earlier Media [address] [place] [address], [place], [address], 08/12/2017 16:12:18 08/06/20 17 08/06/2017 drug scree n, urine alcohol metabolites ur ql cfm <200 NG/mL >=200 NONE DETEC VIVI Not Available Earlier Media [address] [place] [address], [place], [address], 08/12/2017 16:12:18 08/06/20 17 08/06/2017 drug scree n, urine ethyl glucuronide ur cfm-mcnc <500 NG/mL >=500 NONE DETEC VIVI Not Available Earlier Media [address] [place] [address], [place], [address], 08/12/2017 16:12:18 08/06/20 17 08/06/2017 drug scree n, urine ethyl sulfate ur cfm-mcnc <200 NG/mL >=200 NONE DETEC VIVI Not Available Earlier Media [address] [place] [address], [place], [address], 08/12/2017 16:12:18 08/06/20 17 08/06/2017 drug scree n, urine tapentadol ur ql cfm <100 NG/mL >=100 NONE DETEC VIVI Not Available Earlier Media [address] [place] [address], [place], [address], 08/12/2017 16:12:18 08/06/20 17 08/06/2017 drug scree n, urine amphetamines ur ql cfm <250 NG/mL >=250 NONE DETEC VIVI Not Available Earlier Media [address] [place] [address], [address], 08/12/2017 16:12:18 08/06/20 17 08/06/2017 drug scree n, urine barbiturates ur ql cfm >=200 NG/mL >=200 POSIT TIMOTEO Not Available Earlier Media [address] [place] [address], [address], 08/12/2017 16:12:18 08/06/20 17 08/06/2017 drug scree n, urine butalbital ur cfm-mcnc 1990 NG/mL >=200 POSIT TIMOTEO Not Available Earlier Media [address] [place] [address], [place], [address], 08/12/2017 16:12:18 08/06/20 17 08/06/2017 drug scree n, urine benzodiaz ur ql cfm <50 NG/mL >=50 NONE DETEC VIVI Not Available Earlier Media [address] [place] [address], [place], [address], 08/12/2017 16:12:18 08/06/20 17 08/06/2017 drug scree n, urine THC ur ql scn <5 NG/mL >=5 NONE DETEC VIVI Not Available Earlier Media [address] [place] [address], [place], [address], 08/12/2017 16:12:18 08/06/20 17 08/06/2017 drug scree n, urine gabapentinpr egabalin ur ql cfm >=5 mcg/m L >=5 POSIT TIMOTEO Not Available Earlier Media [address] [place] [address], [address], 08/12/2017 16:12:18 08/06/20 17 08/06/2017 drug scree n, urine pregabalin ur cfm-mcnc 115 mcg/m L >=5 POSIT TIMOTEO Not Available Earlier Media [address] [place] [address], [place], [address], 08/12/2017 16:12:18 08/06/20 17 08/06/2017 drug scree n, urine sedative hypnotics ur ql cfm >=4 NG/mL >=4 POSIT TIMOTEO Not Available Earlier Media [address] [place] [address], [place], [address], 08/12/2017 16:12:18 08/06/20 17 08/06/2017 drug scree n, urine zolpidem ur cfm-mcnc 9 NG/mL >=4 POSIT TIMOTEO Not Available Earlier Media [address] [place] [address], [place], [address], 08/12/2017 16:12:18 08/06/20 17 08/06/2017 drug scree n, urine zolpidem [id number] b ur cfm 8040 NG/mL >=4 POSIT TIMOTEO Not Available Earlier Media [address] [place] [address], [place], [address], 08/12/2017 16:12:18 08/06/20 17 08/06/2017 drug scree n, urine bze ur ql cfm <50 NG/mL >=50 NONE DETEC VIVI Not Available Earlier Media [address] [place] [address], [place], [address], 08/12/2017 16:12:18 08/06/20 17 08/06/2017 drug scree n, urine opiates ur ql cfm <100 NG/mL >=100 NONE DETEC VIVI Not Available Earlier Media [address] [place] [address], [place], [address], 08/12/2017 16:12:18 08/06/20 17 08/06/2017 drug scree n, urine 6mam ur ql cfm <10 NG/mL >=10 NONE DETEC VIVI Not Available Earlier Media [address] [place] [address], [place], [address], 08/12/2017 16:12:18 08/06/20 17 08/06/2017 drug scree n, urine methadone ur ql cfm >=200 NG/mL >=200 POSIT TIMOTEO Not Available Earlier Media [address] [place] [address], [place], [address], 08/12/2017 16:12:18 08/06/20 17 08/06/2017 drug scree n, urine methadone ur cfm-mcnc 939 NG/mL >=200 POSIT TIMOTEO Not Available Earlier Media [address] [place] [address], [place], [address], 08/12/2017 16:12:18 08/06/20 17 08/06/2017 drug scree n, urine EDDP ur cfm-mcnc 64377 NG/mL >=200 POSIT TIMOTEO Not Available Earlier Media [address] [place] [address], [place], [address], 08/12/2017 16:12:18 08/06/20 17 08/06/2017 drug scree n, urine meperidine ur ql cfm <100 NG/mL >=100 NONE DETEC VIVI Not Available Earlier Media [address] [place] [address], [place], [address], 08/12/2017 16:12:18 08/06/20 17 08/06/2017 drug scree n, urine fentanyl+nor fentanyl ur ql cfm <5 NG/mL >=5 NONE DETEC VIVI Not Available Earlier Media [address] [place] [address], [place], [address], 08/12/2017 16:12:18 08/06/20 17 08/06/2017 drug scree n, urine carisoprodol +meprob ur ql scn <200 NG/mL >=200 NONE DETEC VIVI Not Available Earlier Media [address] [place] [address], [place], [address], 08/12/2017 16:12:18 08/06/20 17 08/06/2017 drug scree n, urine tramadol ur ql cfm <100 NG/mL >=100 NONE DETEC VIVI Not Available Earlier Media [address] [place] [address], [place], [address], 08/12/2017 16:12:18 08/06/20 17 08/06/2017 drug scree n, urine cotinine ur ql cfm <125 NG/mL >=125 NONE DETEC VIVI Not Available Earlier Media [address] [place] [address], [place], [address], 08/12/2017 16:12:18 08/06/20 17 08/06/2017 drug scree n, urine sn reuptake inhibitors ur ql >=5 NG/mL >=5 POSIT TIMOTEO Not Available Earlier Media [address] [place] [address], [place], [address], 08/12/2017 16:12:18 08/06/20 17 08/06/2017 drug scree n, urine venlafaxine ur cfm-mcnc 4130 NG/mL >=5 POSIT TIMOTEO Not Available Earlier Media [address] [place] [address], [place], [address], 08/12/2017 16:12:18 08/06/20 17 08/06/2017 drug scree n, urine odv ur cfm-mcnc 55077 NG/mL >=5 POSIT TIMOTEO Not Available Earlier Media [address] [place] [address], [place], [address], 08/12/2017 16:12:18 08/06/20 17 08/06/2017 drug scree n, urine cannabinoids synthetic ql scn <2 NG/mL >=2 NONE DETEC VIVI Not Available Earlier Media [address] [place] [address], [place], [address], 08/12/2017 16:12:18 08/06/20 17 08/06/2017 drug scree n, urine nitrite ur-mcnc <200 mcg/m L <200 normal NOEMI L Not Available Earlier Media [address] [place] [address], [place], [address], 08/12/2017 16:12:18 08/06/20 17 08/06/2017 drug scree n, urine chromate ur-mcnc <50 mcg/m L <50 normal NOEMI L Not Available Earlier Media [address] [place] [address], [address], 08/12/2017 16:12:18 08/06/20 17 08/06/2017 drug scree n, urine pH ur 8.4 hallman 3.5 - 9.0 normal NOEMI L Not Available Earlier Media [address] [place] [address], [address], 08/12/2017 16:12:18 08/06/20 17 08/06/2017 drug scree n, urine creat ur-mcnc 111 mg/dL >=2 normal NOEMI L Not Available Earlier Media [address] [place] [address], [address], 08/12/2017 16:12:18 08/06/20 17 08/06/2017 drug scree n, urine sp gr ur 1.0182 hallman >=1.00 20 normal NOEMI L Not Available Earlier Media [address] [place] [address], [address], 08/12/2017 16:12:18 Result Notes None recorded. Problems Name Problem SNOMED Code Status Onset Date Resolution Date Notes Provider Name and Address Organization Details Recorded Time Arthropath y 726169836 Active 2015 Not Available [facility] 6 10:18:55 Primary central sleep apnea 2661619495108 Active 2015 Not Available [facility] 6 10:18:55 Low back pain 537057657 Active 2015 Not Available [facility] 6 10:18:55 Impingemen t syndrome of shoulder region 585030193 Active 2015 Not Available [facility] 6 10:18:55 Lumbosacra l radiculopa thy 2240086 Active 2015 Not Available [facility] 6 10:18:55 Idiopathic osteoarthr itis 837561722 Active 2014 Not Available [facility] 6 10:18:55 Problem Notes None recorded. Procedures Surgical History Date Name Laterality Status Provider Name and Address Organization Details Recorded Time 01/28/20 18 Botox Initial completed Jennifer Quintana MD [address], [place], [address], [facility] 01/27/2018 16:07:03 11/05/19 18 Trigger Point Injection completed Jennifer Quintana MD [address], [place], [address], [facility] 11/05/2017 12:11:46 08/06/20 17 Trigger Point Injection completed MD [address], [place], [address], [facility] 08/06/2017 12:18:34 05/02/20 17 Trigger Point Injection completed Jennifer Quintana MD [address], [place], [address], [facility] 05/02/2017 14:55:38 04/17/20 17 EW Discography completed MD [address], [place], [address], [facility] 04/17/2017 13:38:35 01/24/20 17 EW 22g Transforaminal Epidural Steroid Injection completed MD [address], [place], [address], [facility] 01/23/2017 14:34:07 10/07/19 17 Rotator Cuff Surgery completed Pam Kilgore [facility] 01/27/2018 11:02:47 10/07/19 14 Knee Surgery completed Molly Pate [facility] 10/10/2016 09:07:15 10/07/19 12 Eye Surgery completed Molly Pate [facility] 10/10/2016 09:07:15 10/07/19 12 Knee Surgery completed Molly Pate [facility] 10/10/2016 09:07:15 10/07/19 11 Hand Surgery completed Molly Pate [facility] 10/10/2016 09:07:15 10/07/19 10 Hysterectomy completed Molly Pate [facility] 10/10/2016 09:07:15 10/07/19 10 Bladder sling completed Molly Pate [facility] 10/10/2016 09:07:15 10/07/18 95 Hand Surgery completed Molly Pate [facility] 10/10/2016 09:07:15 10/07/18 93 Eye Surgery completed Molylcolby Pate [facility] 10/10/2016 09:07:15 10/07/18 89 Gallbladder Surgery completed Mollycolby Pate [facility] 10/10/2016 09:07:15 Imaging Results None recorded. Procedure Notes None recorded. Medical Equipment None Reported. Allergies Allergen ID Allergen Name Allergen Category Reaction Reaction Severity Criticality Documentation Date Start Date Code Code System Note Provider Name and Address Organization Details Recorded Time 72088 Product containin g penicilli n (product) medicatio n Not available Not available Not available 08/08/20162010 05735 8001 SNOMED Comme nt: Repor vivi Year: 2010; Not Available [facility] 6 07:37:24 60394 penicilla mine medicatio n Not available Not available Not available 08/08/20162011 7975 RxNorm Sever ity: Unkno wn; Viviana Stanley [facility] 7 09:12:02 34439 sulfabenz amide Not available Not available Not available Not available 08/08/20162011 07693 RxNorm Sever ity: Unkno wn; Viviana Stanley [facility] 7 09:12:08 49073 Substance with sulfonami de structure and antibacte rial mechanism of action (substanc e) medicatio n Not available Not available Not available 08/08/20162010 57497 8003 SNOMED Comme nt: Repor vivi Year: 2010; Not Available [facility] 6 07:37:24 01318 latex environme nt,medica tion itching moderate Not available 10/10/2016 31728 91 RxNorm [email or web address] 7 09:07:13 Medications Name Sig Start Date [...] Updated DateTime 01/27/2018 160.02 cm Pam Kilgore [facility] 01/27/2018 11:02:27 Date Recorded Body height Provider Name an d Address Organization Details Last Updated DateTime 04/28/2018 160.02 cm Pam Kilgore [facility] 04/28/2018 10:51:44 Date Recorded Body height Provider Name an d Address Organization Details Last Updated DateTime 05/28/2017 160.02 cm Sravani Hahn [facility] 05/28/2017 08:33:17 Date Recorded Body height Provider Name an d Address Organization Details Last Updated DateTime 08/06/2017 160.02 cm Jennifer Quintana MD [address], [place], [address], [facility] 08/06/2017 11:30:12 Social History Question Answer Notes LastModified by Organizat ion Details LastModified Time Tobacco Smoking Status Never Smoker Not Available [facility] 08/09/2020 04:06:17 What Is Your Level Of Caffeine Consumption? None [id number] Information not available 08/09/2020 How Much Tobacco Do You Chew? None [id number] Information not available 08/09/2020 Education 2 Year College [email or web address] Informatio n not available 10/10/2016 Which Of Your Hands Is Dominant? Right [id number] Information not available 08/09/2020 Marital Status [email or web address] Informatio n not available 01/27/2018 What Was The Date Of Your Most Recent Tobacco Screening? 04/28/2018 [id number] Information not available 08/09/2020 Sex: Unknown Functional Status Question Answer Note LastModified by Organization D etails LastModified Time What is your level of alcohol consumption? None [id number] Information not available 08/09/2020 Are you currently employed? No [id number] Information not available 08/09/2020 Mental Status None [...] SNOMED-CT Code Diagnosis ICD10 Code Diagnosis Note [id number] MATTY [place] MAIN OFFICE [address] [place] [address] 10/10/2016 08:30:52 10/10/2016 09:40:07 Full thickness rotator cuff tear 435168351 M75.122 IMAGING: MRI left shoulder shows a [...] like to proceed. Informed consent was obtained. 20780 MATTY BECKMAN MAIN OFFICE [address] [place] [address] 10/15/2016 08:11:52 10/15/2016 09:25:39 Full thickness rotator cuff tear 894114504 M75.122 Impingemen t syndrome of shoulder region 962546757 M75.42 Lumbosacra l radiculopathy 0323331 M54.16 Primary ce ntral sleep apnea 6225367549 101 G47.31 23553 Ino Carias MD MAIN OFFICE [address] [place] [address] 10/24/2016 08:08:01 10/24/2016 08:57:00 History of arthroscopic procedure on shoulder 174202590 Z98.890 IMPRESSION : 2 Weeks s/p left [...] 4 weeks History of major orthopedic surgery 067917915 Z98.890 63609 Ino Carias MD MAIN OFFICE [address] [place] [address] 11/28/2016 08:08:37 11/28/2016 08:31:35 History of arthroscopic procedure on shoulder 569930107 Z98.890 she is 6 weeks out now doing well she can discontinu e her sling. No active range of motion yet. Continue protocol. Follow-up 6 weeks. 11338 Ino Carias MD MAIN OFFICE [address] [place] [address] 01/09/2017 09:18:11 01/09/2017 10:26:53 History of arthroscopic procedure on shoulder 710958138 Z98.890 she is 12 weeks out now and she is doing very well. Recommend that she graduated from physical therapy to a home exercise program. Recommende d that she continue this for about 2 months. At this point she can follow up as needed. Patient was agreeable and all questions were answered today. [id number] Jennifer Quintana MD MAIN OFFICE [address] [place] [address] 01/10/2017 09:34:37 01/10/2017 11:28:59 Pain of joint of ankle and/or foot 531221489 M25.579 please obtain 3 views of the bilateral ankles and bilateral feet next appointmen t if she is still having pain after the injections . Consider physical therapy. Lumbar radiculopathy 128 662555 M54.16 recommend bilateral S1 nerve blocks. Fibromyalgia 207381192 M 79.7 Low back pain 331899495 M54.5 39509 Jennifer Quintana MD PAIN CENTER [address] [place] [address] 01/23/2017 13:52:32 01/24/2017 14:45:48 Lumbar radiculopathy 400683204 M54.16 recommend bilateral S1 nerve blocks. 91163 Jennifer Quintana MD MAIN OFFICE [address] [place] [address] 03/12/2017 10:36:03 03/12/2017 11:18:45 Migraine 21494203 G43.909 advised weaning from butalbital as she is able. She has. She failed Topamax. She does not qualify for Botox. Lumbar radiculopathy 128 562132 M54.16 Neck pain 61352691 M54.2 Metatarsalgia 54666001 M 77.40 55056 Volodymyr Bingham MD MAIN OFFICE [address] [place] [address] 03/21/2017 13:16:21 03/21/2017 14:28:53 Low back pain 325641772 M54.5 Neck pain 02003417 M54.2 Lumbosacra l spondylosis 186762292 M47.817 [id number] Volodymyr Bingham MD MAIN OFFICE [address] [place] [address] 03/28/2017 14:53:55 03/28/2017 15:23:41 Low back pain 713558165 M54.5 Neck pain 91011990 M54.2 Lumbosacra l spondylosis 884212866 M47.817 Cervical spondylosis 387 309714 M47.812 Degenerati ve spondylolisthesis 7877252 M43.19 M43.16 M43.17 [id number] Jennifer Quintana MD MAIN OFFICE [address] [place] [address] 04/02/2017 12:37:04 04/02/2017 13:42:09 Lumbar spondylosis 266420532 M47.896 Lumbar radiculopathy 128 711503 M54.16 [id number] Jennifer Quintana MD PAIN CENTER [address] [place] [address] 04/17/2017 11:59:28 04/18/2017 08:34:06 Lumbosacral spondylosis without myelopathy 71859183 M47.817 [id number] Jennifer Quintana MD PAIN CENTER [address] [place] [address] 05/02/2017 12:30:38 05/02/2017 13:44:03 Low back pain 318267504 M54.5 Neck pain 78051836 M54.2 [id number] Volodymyr Bingham MD MAIN OFFICE [address] [place] [address] 05/28/2017 08:22:27 05/28/2017 09:28:27 Spondylolisthesis 981421526 M43.19 Lumbosacra l spondylosis 605115423 M47.817 Low back pain 354328857 M54.5 Lumbar dis cogenic pain 197376635 M51.26 [id number] Jennifer Quintana MD MAIN OFFICE [address] [place] [address] 08/06/2017 10:58:18 08/06/2017 12:27:27 Long-term drug therapy 668197800 Z79.891 Low back pain 100319449 M54.5 Cervical s pondylosis with radiculopathy 766415820 M47.22 [id number] Jennifer Quintana MD MAIN OFFICE [address] [place] [address] 11/05/2017 10:50:11 11/05/2017 12:05:58 Neck pain 28601307 M54.2 Migraine without aura 56 452617 G43.009 urine drug screen as per protocol. [id number] Jennifer Quintana MD MAIN OFFICE [address] [place] [address] 01/27/2018 10:34:24 01/27/2018 12:02:53 Long-term drug therapy 915371823 Z79.891 Refractory migraine without aura 544991112 G43.719 [id number] Jennifer Quintana MD MAIN OFFICE [address] [place] [address] 04/28/2018 10:32:18 04/28/2018 11:44:58 Neck pain 25665297 M54.2 given slight anterolist hesis of C3 on 4, will recommend follow-up with Dr. Apodaca. Cervical s pondylosis with radiculopathy 624749429 M47.22 Migraine 00320414 G43.90 9 Health Concerns Section Related Observation LastModified by Organization Detai ls LastModified Time None Recorded Concern Status LastModified by Organization Details LastModified Time None Recorded Advance Directives Directive None Recorded Payers Insurance Date Sequence Insurance Name Policy Number Policy Ramirez Covered Member ID Ramirez Member ID Guarantor Name 05/27/2018 1 MEDICARE B-[place]: [place] Laura Ulloa Hdz [id number] Laura Ulloa [place] 05/27/2018 2 [facility] - FEP [id number] Laura Hdz [id number] Laura Hdz 05/27/2018 [facility]) Laura Hdz [id number] Laura Hdz Notes Date Note Type Note [...] to discuss surgical options. Srini Jarquin PA-C [address] [facility] [address], [place], [address], [facility] 06/06/2017 21:36:28 7 text/html Pain Management [...] misuse or aberrant behavior. Jennifer Quintana MD [address] [facility] [facility] [address], [place], [address], [facility] [facility] 08/06/2017 12:59:59 8 text/html Pain Management [...] reduce medication if possible. Jennifer Quintana MD [address], [place], [address], [facility] 11/05/2017 12:12:15 8 text/html Pt presents for her Botox injection today for migraines. Current pain level 1/10. Medications are helping. Denies recent infection or fever. Jennifer Quintana MD [address], [place], [address], [facility] 01/27/2018 16:14:48 8 text/html Pain Management [...] current pain level 3/10. Jennifer Quintana MD [address] [facility],[address], [place], [address], [facility] [place] 05/04/2018 15:26:40 OBGyn Episode No OBEpisode recorded.
== END 2025-04-14 13:49 | disposition home or self-care (01) ==
LOC: HO.HMCH 13:10
PROVIDERS: PCP Internal Medicine; Visit Provider Internal Medicine
DX: R19.7 Diarrhea, unspecified (principal); K90.0 Celiac disease; M62.442 Contracture of muscle, left hand; R25.1 Tremor, unspecified; E78.00 Pure hypercholesterolemia, unspecified; I34.1 Nonrheumatic mitral (valve) prolapse; G43.909 Migraine, unspecified, not intractable, without status migrainosus; K29.70 Gastritis, unspecified, without bleeding; J30.9 Allergic rhinitis, unspecified; M79.7 Fibromyalgia; M51.362 Other intervertebral disc degeneration, lumbar region with discogenic back pain and lower extremity pain; M54.2 Cervicalgia

== ENCOUNTER → 2025-04-14 13:08 | Outpatient (BNVA) | payer MEDICARE, BC, SELFPAY | PROVIDERS: PCP Internal Medicine; Visit Provider Internal Medicine | DX: R19.7 Diarrhea, unspecified (principal); K90.0 Celiac disease; M62.442 Contracture of muscle, left hand; E78.00 Pure hypercholesterolemia, unspecified; I34.1 Nonrheumatic mitral (valve) prolapse; G43.909 Migraine, unspecified, not intractable, without status migrainosus; K29.70 Gastritis, unspecified, without bleeding; J30.9 Allergic rhinitis, unspecified; M79.7 Fibromyalgia; M51.362 Other intervertebral disc degeneration, lumbar region with discogenic back pain and lower extremity pain; M54.2 Cervicalgia; M19.91 Primary osteoarthritis, unspecified site; M19.011 Primary osteoarthritis, right shoulder; R20.2 Paresthesia of skin; G25.81 Restless legs syndrome; G47.00 Insomnia, unspecified; F33.9 Major depressive disorder, recurrent, unspecified; E66.9 Obesity, unspecified; Z68.38 Body mass index [BMI] 38.0-38.9, adult; Z71.3 Dietary counseling and surveillance | CPT/HCPCS: 96127; 99212 ==

== ENCOUNTER 2025-04-28 10:52 | Outpatient (AMB) | payer MEDICARE, BC, SELFPAY ==
--- NOTE | 2025-04-28 11:12 | MHC.OFFVIS ---
Vital Signs 04/28/25 11:13 Height 5 ft 2 in Weight 210 lb 2 oz BMI 38.4 BP 141/65 H Blood Pressure Location Rt brachial Position Sitting Pulse 78 Pulse Source Pulse Oximeter Pulse Oximetry (%) 97 Oxygen Delivery Method Room Air Intake Visit Reasons: 6 weeks trigger point inj Allergies Sulfa (Sulfonamide Antibiotics) (SULFA (SULFONAMIDE ANTIBIOTICS)) Allergy (Severe, Verified 04/14/25 13:37) ANAPHYLAXIS Penicillins (PENICILLINS) Allergy (Mild, Verified 04/14/25 13:37) RASH latex Adverse Reaction (Severe, Verified 04/14/25 13:37) Rash doxycycline Adverse Reaction (Mild, Verified 04/14/25 13:37) Abdominal Pain HPI HPI 6 weeks trigger point inj: Details: History of Present Illness The patient is a 69-year-old female presenting for TPIs; patient receives these injections approximately every six weeks to manage the pain. Pain Description - Onset: Persistent - Quality: Burning sensation - Location: Neck & shoulders - Exacerbating factors: Not explicitly discussed - Relieving factors: Cortisone injections Physical Exam - Appears afebrile. - Alert and oriented. - Mood and affect appropriate. - Follows and participates in conversation appropriately. - Respiratory effort is unlabored. - Able to transition from sit to stand unassisted. - Ambulates with bilaterally normal heel strike and toe off. - Able to stand and walk on toes and heels. Results Pain Management - Affect: Not explicitly discussed - Analgesia: Cortisone injections for hip and tailbone pain - Adverse Effects: Not explicitly discussed - Activities of Daily Living: Not explicitly discussed - Aberrant Drug Related Behaviors: Not explicitly discussed Procedure - Informed consent was obtained. - The patient was positioned comfortably sitting. - Preparation with Chloroprep was performed on the neck and shoulder area. - Bilateral occipitalis, trapezius, and cervicalis muscles were injected with 0.5-1 mL of ropivacaine 0.25% at each trigger point. - The patient tolerated the procedure well. [facility] Medical History Degenerative joint disease of shoulder, right Osteoarthritis Arthritis Back pain Celiac sprue GERD (gastroesophageal reflux disease) Anxiety Numbness Sepsis Sleep apnea Sacroiliac dysfunction Migraine Burn injury Sinusitis chronic, frontal Osteopenia Obesity (BMI 30-39.9) Major depression, recurrent Insomnia Primary osteoarthritis Urinary frequency Mitral valve prolapse Allergic rhinitis Gastritis Pure hypercholesterolemia Restless leg syndrome Cervicalgia Lumbar degenerative disc disease Fibromyalgia Surgical History History of lumbar spinal fusion History of bilateral knee arthroplasty Hx of eye surgery History of cataract surgery History of carpal tunnel release History of bunionectomy S/P GINGER-BSO (total abdominal hysterectomy and bilateral salpingo-oophorectomy) History of repair of rotator cuff History of arthroscopy of both knees Hx of cholecystectomy Hx of endoscopy History of colonoscopy Family History Father History of cancer Mother History of cancer History of high blood pressure Hx of diabetes mellitus Social History Household Members: Significant Other Household Members Other:: DAUGHTER AND HER FAMILY Housing: House Are you a primary reservoir caretaker to a significant other at home: No Do you presently have visiting nurse or other home services: No Alcohol intake: current Alcohol intake frequency: holidays/special occasions only Patient Tobacco Use Status: Never used Tobacco Tobacco use type: Cigarette e-Cigarette/Vaping Use: Never Used Second Hand Smoke Exposure: Yes service: No Current occupational status: retired Cognitive needs: No Hearing needs: No Vision needs: Yes Physical Exam Vital Signs: Last Vital Signs Pulse 78 04/28/25 11:13 BP 141/65 H 04/28/25 11:13 Pulse Ox 97 04/28/25 11:13 Oxygen Delivery Method Room Air 04/28/25 11:13 BMI result Body Mass Index 38.4 Assessment & Plan Assessment & Plan (1) Myofascial pain: Code(s): M79.18 - Myalgia, other site Category: Medical Plan Plan - Continue with trigger point injections every six weeks for myofascial pain management. - Caudal ROSY injection as planned. Patient was informed and verbally consented to the use of an ambient scribe for clinic note documentation during this visit. Coding Level of Care Code Procedure Only Diagnoses Myofascial pain M79.18
[2025-04-28 11:13] VITALS: BP 141/65; PULSE 78; O2SAT 97; BMI 38.4
--- OUTSIDE RECORDS SUMMARY | 2025-04-28 11:53 | XMS_ITS | Clinical Summary ---
Author Organization [facility] Facility Address [address] [place] [id number] Care Team Providers Care Application Packager Name Role Phone Unavailable Primary Care Provider [...] patient's age to complete this topic Insurance [facility] ([id number]) Medicare
--- OUTSIDE RECORDS SUMMARY | 2025-04-28 11:53 | XMS_ITS | Clinical Summary ---
Author Organization [address] [facility] Address [address] [place] [address] Phone Care Team Providers Care Marbleizing Machine Tender Name Role Phone Osmany Browning MD Primary [...] 08/21/2021 06/26/2021 Colorectal Cancer Screening: Colonoscopy 09/24/2024 Falls Risk Assessment 09/24/2024 Hepatitis C Screening 09/24/2024 Medicare Annual Wellness Visit 09/24/2024 Osteoporosis Screening (Bone Density Screening) 09/24/2024 Social Influencers of Health Screening 09/24/2024 Depression Screening 10/07/2024 COVID-19 Vaccine ( season) 2025 08/06/2024, 11/22/2023, [...] age to complete this topic Insurance MEDICARE [facility] Care Teams Marbleizing Machine Tender Relationship Specialty Start Date End Date Osmany Browning MD [address] [place] [address] [address] Bro PCP - General Internal Medicine 12/08/24
--- OUTSIDE RECORDS SUMMARY | 2025-04-28 11:53 | XMS_ITS | Data Portability ---
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 SCANS: Lumbar MRI (done at [facility] on 03/26/2017) findings/interpreta tion: Multilevel [...] ALIF. Follow up after she sees Dr Parsi. [email or web address] Not available 06/06/2017 21:29:56 Plan of Treatment Reminders Order Date Submit Date Provider Last Modified By Organization Details Last Modified Time Details Appointments None recorded. Lab drug screen, urine 2017 018 [email or web address] Main Office, [address], [address], [place], [address], 8 16:36:58 drug screen, urine 2016 017 CARA Main Office, [address], [address], [place], [address], 7 14:46:03 Referral general surgeon referral - possible ALIF L4/5 L5/S1 please call patient with appt 2016 017 [email or web address] Duran Paris MD, [address], [place], [address], 7 21:27:09 Procedures None recorded. Surgeries None recorded. Imaging XR, cervical spine, 4 or 5 view 2017 018 [email or web address] Main Office, [address], [address], [place], [address], 8 08:25:32 Medication Orders hydrocodone 10 mg-acetamin ophen 325 mg tablet 2016 017 [email or web address] Not available 7 12:54:37 Patient Targets Encounter Date Encounter Id Patient Goals Patient Target Last Modified By Organization Details Last Modified Time 08/06/2017 [id number] [facility] record checked. Low risk UDTBased on the [...] marijuana, meperidine, methadone, opiates, tapentadol, and tramadol. [email or web address] Not available 08/06/2017 12:59:51 11/05/2017 [id number] we'll continue current medications. [facility] record checked. Recommend Botox for migraines. [email or web address] Not available 11/05/2017 12:11:16 04/28/2018 [id number] [employer] website checked. Continue hydrocodone, Lidoderm patches, Fioricet, Arthrotec, Botox her headaches. [email or web address] Not available 05/04/2018 15:26:02 Patient Instructions Encounter Date Encounter Id Patient Instructions Last Modified By Organization Details Last Modified Time 11/05/2017 [id number] neck pain: care instructions [email or web address] Not available 11/05/2017 12:12:08 04/28/2018 [id number] neck pain: care instructions [email or web address] Not available 04/29/2018 19:29:13 Reason for Referral General Surgeon Referral for Spondylolisthesis consideration of ALIF possible ALIF L4/5 L5/S1 please call patient with appt Referring Physician: Volodymyr Bingham, Orthopedic Surgery, Encounter Date: 05/28/2017 Results Created Date Observation Date Name Description Value Unit Range Abnormal Flag Note LastModifiedBy Organization Detail LastModifiedTime 08/06/20 17 08/06/2017 drug scree n, urine [place]lafaxine ur CMP 22526 NG/mL >=5 normal COMPL IANT: Test resul t is consi stent and expec vivi with presc ribed drug. Not Available [facility] [address] [place] [address], [address], 08/12/2017 16:12:18 08/06/20 17 08/06/2017 drug scree n, urine methadone ur CMP 30364 NG/mL >=200 normal COMPL IANT: Test resul t is consi stent and expec vivi with presc ribed drug. Not Available [facility] [address] [place] [address], [address], 08/12/2017 16:12:18 08/06/20 17 08/06/2017 drug scree n, urine zolpidem ur CMP 8050 NG/mL >=4 normal COMPL IANT: Test resul t is consi stent and expec vivi with presc ribed drug. Not Available [facility] [address] [place], [address], 08/12/2017 16:12:18 08/06/20 17 08/06/2017 drug scree n, urine pregabalin ur CMP 115 mcg/m L >=5 normal COMPL IANT: Test resul t is consi stent and expec vivi with presc ribed drug. Not Available [facility] [address] [place] [address] [place], [address], 08/12/2017 16:12:18 08/06/20 17 08/06/2017 drug scree n, urine butalbital ur CMP 1990 NG/mL >=200 normal COMPL IANT: Test resul t is consi stent and expec vivi with presc ribed drug. Not Available [facility] [address] [place] [address], [place], [address], 08/12/2017 16:12:18 08/06/20 17 08/06/2017 drug scree n, urine cathinones synthetic ur ql scn <25 NG/mL >=25 NONE DETEC VIVI Not Available [facility] [address] [place] [address], [place], [address], 08/12/2017 16:12:18 08/06/20 17 08/06/2017 drug scree n, urine buprenorphin e ur ql cfm <1 NG/mL >=1 NONE DETEC VIVI Not Available [facility] [address] [place] [address], [place], [address], 08/12/2017 16:12:18 08/06/20 17 08/06/2017 drug scree n, urine alcohol metabolites ur ql cfm <200 NG/mL >=200 NONE DETEC VIVI Not Available [facility] [address] [place] [address], [place], [address], 08/12/2017 16:12:18 08/06/20 17 08/06/2017 drug scree n, urine ethyl glucuronide ur cfm-mcnc <500 NG/mL >=500 NONE DETEC VIVI Not Available [facility] [address] [place] [address], [place], [address], 08/12/2017 16:12:18 08/06/20 17 08/06/2017 drug scree n, urine ethyl sulfate ur cfm-mcnc <200 NG/mL >=200 NONE DETEC VIVI Not Available [facility] [address] [place] [address], [place], [address], 08/12/2017 16:12:18 08/06/20 17 08/06/2017 drug scree n, urine tapentadol ur ql cfm <100 NG/mL >=100 NONE DETEC VIVI Not Available [facility] [address] [place] [address], [place], [address], 08/12/2017 16:12:18 08/06/20 17 08/06/2017 drug scree n, urine amphetamines ur ql cfm <250 NG/mL >=250 NONE DETEC VIVI Not Available [facility] [address] [place] [address], [address], 08/12/2017 16:12:18 08/06/20 17 08/06/2017 drug scree n, urine barbiturates ur ql cfm >=200 NG/mL >=200 POSIT TIMOTEO Not Available [facility] [address] [place] [address], [address], 08/12/2017 16:12:18 08/06/20 17 08/06/2017 drug scree n, urine butalbital ur cfm-mcnc 1990 NG/mL >=200 POSIT TIMOTEO Not Available [facility] [address] [place] [address], [place], [address], 08/12/2017 16:12:18 08/06/20 17 08/06/2017 drug scree n, urine benzodiaz ur ql cfm <50 NG/mL >=50 NONE DETEC VIVI Not Available [facility] [address] [place] [address], [place], [address], 08/12/2017 16:12:18 08/06/20 17 08/06/2017 drug scree n, urine THC ur ql scn <5 NG/mL >=5 NONE DETEC VIVI Not Available [facility] [address] [place] [address], [place], [address], 08/12/2017 16:12:18 08/06/20 17 08/06/2017 drug scree n, urine gabapentinpr egabalin ur ql cfm >=5 mcg/m L >=5 POSIT TIMOTEO Not Available [facility] [address] [place] [address], [address], 08/12/2017 16:12:18 08/06/20 17 08/06/2017 drug scree n, urine pregabalin ur cfm-mcnc 115 mcg/m L >=5 POSIT TIMOTEO Not Available [facility] [address] [place] [address], [place], [address], 08/12/2017 16:12:18 08/06/20 17 08/06/2017 drug scree n, urine sedative hypnotics ur ql cfm >=4 NG/mL >=4 POSIT TIMOTEO Not Available [facility] [address] [place] [address], [place], [address], 08/12/2017 16:12:18 08/06/20 17 08/06/2017 drug scree n, urine zolpidem ur cfm-mcnc 9 NG/mL >=4 POSIT TIMOTEO Not Available [facility] [address] [place] [address], [place], [address], 08/12/2017 16:12:18 08/06/20 17 08/06/2017 drug scree n, urine zolpidem [id number] b ur cfm 8040 NG/mL >=4 POSIT TIMOTEO Not Available [facility] [address] [place] [address], [place], [address], 08/12/2017 16:12:18 08/06/20 17 08/06/2017 drug scree n, urine bze ur ql cfm <50 NG/mL >=50 NONE DETEC VIVI Not Available [facility] [address] [place] [address], [place], [address], 08/12/2017 16:12:18 08/06/20 17 08/06/2017 drug scree n, urine opiates ur ql cfm <100 NG/mL >=100 NONE DETEC VIVI Not Available [facility] [address] [place] [address], [place], [address], 08/12/2017 16:12:18 08/06/20 17 08/06/2017 drug scree n, urine 6mam ur ql cfm <10 NG/mL >=10 NONE DETEC VIVI Not Available [facility] [address] [place] [address], [place], [address], 08/12/2017 16:12:18 08/06/20 17 08/06/2017 drug scree n, urine methadone ur ql cfm >=200 NG/mL >=200 POSIT TIMOTEO Not Available [facility] [address] [place] [address], [place], [address], 08/12/2017 16:12:18 08/06/20 17 08/06/2017 drug scree n, urine methadone ur cfm-mcnc 939 NG/mL >=200 POSIT TIMOTEO Not Available [facility] [address] [place] [address], [place], [address], 08/12/2017 16:12:18 08/06/20 17 08/06/2017 drug scree n, urine EDDP ur cfm-mcnc 29839 NG/mL >=200 POSIT TIMOTEO Not Available [facility] [address] [place] [address], [place], [address], 08/12/2017 16:12:18 08/06/20 17 08/06/2017 drug scree n, urine meperidine ur ql cfm <100 NG/mL >=100 NONE DETEC VIVI Not Available [facility] [address] [place] [address], [place], [address], 08/12/2017 16:12:18 08/06/20 17 08/06/2017 drug scree n, urine fentanyl+nor fentanyl ur ql cfm <5 NG/mL >=5 NONE DETEC VIVI Not Available [facility] [address] [place] [address], [place], [address], 08/12/2017 16:12:18 08/06/20 17 08/06/2017 drug scree n, urine carisoprodol +meprob ur ql scn <200 NG/mL >=200 NONE DETEC VIVI Not Available [facility] [address] [place] [address], [place], [address], 08/12/2017 16:12:18 08/06/20 17 08/06/2017 drug scree n, urine tramadol ur ql cfm <100 NG/mL >=100 NONE DETEC VIVI Not Available [facility] [address] [place] [address], [place], [address], 08/12/2017 16:12:18 08/06/20 17 08/06/2017 drug scree n, urine cotinine ur ql cfm <125 NG/mL >=125 NONE DETEC VIVI Not Available [facility] [address] [place] [address], [place], [address], 08/12/2017 16:12:18 08/06/20 17 08/06/2017 drug scree n, urine sn reuptake inhibitors ur ql >=5 NG/mL >=5 POSIT TIMOTEO Not Available [facility] [address] [place] [address], [place], [address], 08/12/2017 16:12:18 08/06/20 17 08/06/2017 drug scree n, urine venlafaxine ur cfm-mcnc 4130 NG/mL >=5 POSIT TIMOTEO Not Available [facility] [address] [place] [address], [place], [address], 08/12/2017 16:12:18 08/06/20 17 08/06/2017 drug scree n, urine odv ur cfm-mcnc 02535 NG/mL >=5 POSIT TIMOTEO Not Available [facility] [address] [place] [address], [place], [address], 08/12/2017 16:12:18 08/06/20 17 08/06/2017 drug scree n, urine cannabinoids synthetic ql scn <2 NG/mL >=2 NONE DETEC VIVI Not Available [facility] [address] [place] [address], [place], [address], 08/12/2017 16:12:18 08/06/20 17 08/06/2017 drug scree n, urine nitrite ur-mcnc <200 mcg/m L <200 normal NOEMI L Not Available [facility] [address] [place] [address], [place], [address], 08/12/2017 16:12:18 08/06/20 17 08/06/2017 drug scree n, urine chromate ur-mcnc <50 mcg/m L <50 normal NOEMI L Not Available [facility] [address] [place] [address], [address], 08/12/2017 16:12:18 08/06/20 17 08/06/2017 drug scree n, urine pH ur 8.4 hallman 3.5 - 9.0 normal NOEMI L Not Available [facility] [address] [place] [address], [address], 08/12/2017 16:12:18 08/06/20 17 08/06/2017 drug scree n, urine creat ur-mcnc 111 mg/dL >=2 normal NOEMI L Not Available [facility] [address] [place] [address], [address], 08/12/2017 16:12:18 08/06/20 17 08/06/2017 drug scree n, urine sp gr ur 1.0182 hallman >=1.00 20 normal NOEMI L Not Available [facility] [address] [place] [address], [address], 08/12/2017 16:12:18 Result Notes None recorded. Problems Name Problem SNOMED Code Status Onset Date Resolution Date Notes Provider Name and Address Organization Details Recorded Time Idiopathic osteoarthr itis 524245274 Active 2014 Not Available [facility] 6 10:18:55 Low back pain 029492008 Active 2015 Not Available [facility] 6 10:18:55 Primary central sleep apnea 1489174031576 Active 2015 Not Available [facility] 6 10:18:55 Arthropath y 957477778 Active 2015 Not Available [facility] 6 10:18:55 Impingemen t syndrome of shoulder region 325798443 Active 2015 Not Available [facility] 6 10:18:55 Lumbosacra l radiculopa thy 7922630 Active 2015 Not Available [facility] 6 10:18:55 Problem Notes None recorded. Procedures Surgical History Date Name Laterality Status Provider Name and Address Organization Details Recorded Time 01/28/20 18 Botox Initial completed Jennifer Quintana MD [address], [place], [address], [facility] 01/27/2018 16:07:03 11/05/19 18 Trigger Point Injection completed Jennifer Quintana MD [address], [place], [address], [facility] 11/05/2017 12:11:46 08/06/20 17 Trigger Point Injection completed MD [address], [place], [address], [facility] 08/06/2017 12:18:34 05/02/20 17 Trigger Point Injection completed Jennifer Quintana MD [address], [place], [address], [facility] 05/02/2017 14:55:38 04/17/20 17 EW Discography completed MD [address], [place], [address], [facility] 04/17/2017 13:38:35 01/24/20 17 EW 22g Transforaminal Epidural Steroid Injection completed MD [address], [place], [address], [facility] 01/23/2017 14:34:07 10/07/19 17 Rotator Cuff Surgery completed Pam Kilgore [facility] 01/27/2018 11:02:47 10/07/19 14 Knee Surgery completed Molly Pate [facility] 10/10/2016 09:07:15 10/07/19 12 Eye Surgery completed Molly Pate [facility] 10/10/2016 09:07:15 10/07/19 12 Knee Surgery completed Molly Pate [facility] 10/10/2016 09:07:15 10/07/19 11 Hand Surgery completed Molly Pate [facility] 10/10/2016 09:07:15 10/07/19 10 Hysterectomy completed Molly Pate [facility] 10/10/2016 09:07:15 10/07/19 10 Bladder sling completed Molly Pate [facility] 10/10/2016 09:07:15 10/07/18 95 Hand Surgery completed Molly Pate [facility] 10/10/2016 09:07:15 10/07/18 93 Eye Surgery completed Mollycolby Pate [facility] 10/10/2016 09:07:15 10/07/18 89 Gallbladder Surgery completed Mollycolby Ptae [facility] 10/10/2016 09:07:15 Imaging Results None recorded. Procedure Notes None recorded. Medical Equipment None Reported. Allergies Allergen ID Allergen Name Allergen Category Reaction Reaction Severity Criticality Documentation Date Start Date Code Code System Note Provider Name and Address Organization Details Recorded Time 27245 Product containin g penicilli n (product) medicatio n Not available Not available Not available 08/08/20162010 55940 8001 SNOMED Comme nt: Repor vivi Year: 2010; Not Available [facility] 6 07:37:24 00966 penicilla mine medicatio n Not available Not available Not available 08/08/20162011 7975 RxNorm Sever ity: Unkno wn; Viviana Stanley [facility] 7 09:12:02 31300 sulfabenz amide Not available Not available Not available Not available 08/08/20162011 97807 RxNorm Sever ity: Unkno wn; Viviana Stanley [facility] 7 09:12:08 67559 Substance with sulfonami de structure and antibacte rial mechanism of action (substanc e) medicatio n Not available Not available Not available 08/08/20162010 08721 8003 SNOMED Comme nt: Repor vivi Year: 2010; Not Available [facility] 6 07:37:24 89663 latex environme nt,medica tion itching moderate Not available 10/10/2016 09071 91 RxNorm [facility] 7 09:07:13 Medications Name Sig [...] Updated DateTime 01/27/2018 160.02 cm Pam Kilgore [facility] 01/27/2018 11:02:27 Date Recorded Body height Provider Name an d Address Organization Details Last Updated DateTime 04/28/2018 160.02 cm Pam Kilgore [facility] 04/28/2018 10:51:44 Date Recorded Body height Provider Name an d Address Organization Details Last Updated DateTime 05/28/2017 160.02 cm Sravani Hahn [facility] 05/28/2017 08:33:17 Date Recorded Body height Provider Name an d Address Organization Details Last Updated DateTime 08/06/2017 160.02 cm Jennifer Quintana MD [address], [place], [address], [facility] 08/06/2017 11:30:12 Social History Question Answer Notes LastModified by Organizat ion Details LastModified Time Tobacco Smoking Status Never Smoker Not Available [facility] 08/09/2020 04:06:17 What Is Your Level Of Caffeine Consumption? None [id number] Information not available 08/09/2020 How Much Tobacco Do You Chew? None [id number] Information not available 08/09/2020 Education 2 Year College [email or web address] Informatio n not available 10/10/2016 Which Of Your Hands Is Dominant? Right [id number] Information not available 08/09/2020 Marital Status [email or web address] Informatio n not available 01/27/2018 What Was The Date Of Your Most Recent Tobacco Screening? 04/28/2018 [id number] Information not available 08/09/2020 Sex: Unknown Functional Status Question Answer Note LastModified by Organization D etails LastModified Time What is your level of alcohol consumption? None [id number] Information not available 08/09/2020 Are you currently employed? No [id number] Information not available 08/09/2020 Mental Status None [...] 08:44:12 Medical History Condition Response Arthritis Y Heart Problems Y Acid Reflux Y Migraines Y High Cholesterol Y Anemia Y Fast Pulse (tachycardia)/Heart murmurs/i rregular pulse Y Chronic Pain Y Sleep Apnea Y Gynecological HistoryNo gynecological history recorded. Obstetrics History GPAL:G 0 P 0 0 0 0 Past Encounters Encounter ID Performer Location Encounter Start Date Encounter Closed Date Diagnosis/Indication Diagnosis SNOMED-CT Code Diagnosis ICD10 Code Diagnosis Note [id number] MATTY [place] MAIN OFFICE [address] [place] [address] 10/10/2016 08:30:52 10/10/2016 09:40:07 Full thickness rotator cuff tear 555168627 M75.122 IMAGING: MRI left shoulder shows a [...] like to proceed. Informed consent was obtained. [id number] MATTY BECKMAN MAIN OFFICE [address] [place] [address] 10/15/2016 08:11:52 10/15/2016 09:25:39 Full thickness rotator cuff tear 495899775 M75.122 Impingemen t syndrome of shoulder region 411757557 M75.42 Lumbosacra l radiculopathy 7329348 M54.16 Primary ce ntral sleep apnea 5162223714 101 G47.31 [id number] Ino Carias MD MAIN OFFICE [address] [place] [address] 10/24/2016 08:08:01 10/24/2016 08:57:00 History of arthroscopic procedure on shoulder 611350188 Z98.890 IMPRESSION : 2 Weeks s/p left [...] 4 weeks History of major orthopedic surgery 632547111 Z98.890 [id number] Ino Carias MD MAIN OFFICE [address] [place] [address] 11/28/2016 08:08:37 11/28/2016 08:31:35 History of arthroscopic procedure on shoulder 618538393 Z98.890 she is 6 weeks out now doing well she can discontinu e her sling. No active range of motion yet. Continue protocol. Follow-up 6 weeks. [id number] Ino Carias MD MAIN OFFICE [address] [place] [address] 01/09/2017 09:18:11 01/09/2017 10:26:53 History of arthroscopic procedure on shoulder 223247832 Z98.890 she is 12 weeks out now and she is doing very well. Recommend that she graduated from physical therapy to a home exercise program. Recommende d that she continue this for about 2 months. At this point she can follow up as needed. Patient was agreeable and all questions were answered today. [id number] Jennifer Quintana MD MAIN OFFICE [address] [place] [address] 01/10/2017 09:34:37 01/10/2017 11:28:59 Pain of joint of ankle and/or foot 075380939 M25.579 please obtain 3 views of the bilateral ankles and bilateral feet next appointmen t if she is still having pain after the injections . Consider physical therapy. Lumbar radiculopathy 128 994251 M54.16 recommend bilateral S1 nerve blocks. Fibromyalgia 266225741 M 79.7 Low back pain 536624810 M54.5 [id number] Jennifer Quintana MD PAIN CENTER [address] [place] [address] 01/23/2017 13:52:32 01/24/2017 14:45:48 Lumbar radiculopathy 020534203 M54.16 recommend bilateral S1 nerve blocks. [id number] Jennifer Quintana MD MAIN OFFICE [address] [place] [address] 03/12/2017 10:36:03 03/12/2017 11:18:45 Migraine 05567517 G43.909 advised weaning from butalbital as she is able. She has. She failed Topamax. She does not qualify for Botox. Lumbar radiculopathy 128 705784 M54.16 Neck pain 12475654 M54.2 Metatarsalgia 15475784 M 77.40 [id number] Volodymyr Bingham MD MAIN OFFICE [address] [place] [address] 03/21/2017 13:16:21 03/21/2017 14:28:53 Low back pain 793737855 M54.5 Neck pain 97891458 M54.2 Lumbosacra l spondylosis 114683639 M47.817 [id number] Volodymyr Bingham MD MAIN OFFICE [address] [place] [address] 03/28/2017 14:53:55 03/28/2017 15:23:41 Low back pain 592552075 M54.5 Neck pain 60135325 M54.2 Lumbosacra l spondylosis 355107914 M47.817 Cervical spondylosis 387 037238 M47.812 Degenerati ve spondylolisthesis 1583243 M43.19 M43.16 M43.17 [id number] Jennifer Quintana MD MAIN OFFICE [address] [place] [address] 04/02/2017 12:37:04 04/02/2017 13:42:09 Lumbar spondylosis 016950410 M47.896 Lumbar radiculopathy 128 791863 M54.16 [id number] Jennifer Quintana MD PAIN CENTER [address] [place] [address] 04/17/2017 11:59:28 04/18/2017 08:34:06 Lumbosacral spondylosis without myelopathy 98320608 M47.817 [id number] Jennifer Quintana MD PAIN CENTER [address] [place] [address] 05/02/2017 12:30:38 05/02/2017 13:44:03 Low back pain 745983860 M54.5 Neck pain 36200927 M54.2 [id number] Volodymyr Bingham MD MAIN OFFICE [address] [place] [address] 05/28/2017 08:22:27 05/28/2017 09:28:27 Spondylolisthesis 091199156 M43.19 Lumbosacra l spondylosis 344164551 M47.817 Low back pain 354543029 M54.5 Lumbar dis cogenic pain 619099961 M51.26 [id number] Jennifer Quintana MD MAIN OFFICE [address] [place] [address] 08/06/2017 10:58:18 08/06/2017 12:27:27 Long-term drug therapy 753389335 Z79.891 Low back pain 721487572 M54.5 Cervical s pondylosis with radiculopathy 385598493 M47.22 [id number] Jennifer Quintana MD MAIN OFFICE [address] [place] [address] 11/05/2017 10:50:11 11/05/2017 12:05:58 Neck pain 70564468 M54.2 Migraine without aura 56 683103 G43.009 urine drug screen as per protocol. [id number] Jennifer Quintana MD MAIN OFFICE [address] [place] [address] 01/27/2018 10:34:24 01/27/2018 12:02:53 Long-term drug therapy 562278646 Z79.891 Refractory migraine without aura 348237856 G43.719 [id number] Jennifer Quintana MD MAIN OFFICE [address] [place] [address] 04/28/2018 10:32:18 04/28/2018 11:44:58 Neck pain 69967266 M54.2 given slight anterolist hesis of C3 on 4, will recommend follow-up with Dr. Apodaca. Cervical s pondylosis with radiculopathy 236144945 M47.22 Migraine 46440632 G43.90 9 Health Concerns Section Related Observation LastModified by Organization Detai ls LastModified Time None Recorded Concern Status LastModified by Organization Details LastModified Time None Recorded Advance Directives Directive None Recorded Payers Insurance Date Sequence Insurance Name Policy Number Policy Ramirez Covered Member ID Ramirez Member ID Guarantor Name 05/27/2018 1 MEDICARE [place]: [place] [employer] Laura Ulloa Hdz [id number] Laura Ulloa Wilder 05/27/2018 2 [facility] FEP 104 Laura Hdz [id number] Laura Hdz 05/27/2018 [facility] (MEDICARE DME [facility] C) Laura Hdz [id number] Laura Hdz Notes Date Note Type Note [...] and movement. Wants to discuss surgical options. Sriin Jarquin PA-C [address] [facility] [address], [address], [facility] 06/06/2017 21:36:28 7 text/html Pain Management [...] misuse or aberrant behavior. Jennifer Quintana MD [address] [facility] [address], [address], [facility] 08/06/2017 12:59:59 8 text/html Pain Management [...] reduce medication if possible. Jennifer Quintana MD [address], [place], [address], [facility] 11/05/2017 12:12:15 8 text/html Pt presents for her Botox injection today for migraines. Current pain level 1/10. Medications are helping. Denies recent infection or fever. Jennifer Quintana MD [address], [place], [address], [facility] 01/27/2018 16:14:48 8 text/html Pain Management [...] current pain level 3/10. Jennifer Quintana MD [address] [facility],[address], [place], [address], [facility] 05/04/2018 15:26:40 OBGyn Episode No OBEpisode recorded.
== END 2025-04-28 11:38 | disposition home or self-care (01) ==
LOC: HO.PMC 10:53
PROVIDERS: PCP Internal Medicine; Visit Provider Internal Medicine
DX: M79.18 Myalgia, other site (principal)
CPT/HCPCS: 20553

== ENCOUNTER → 2025-04-28 10:52 | Outpatient (BNVA) | payer MEDICARE, BC, SELFPAY | PROVIDERS: PCP Internal Medicine; Visit Provider Internal Medicine | DX: M79.18 Myalgia, other site (principal); Z79.899 Other long term (current) drug therapy | CPT/HCPCS: 20553 ==

== ENCOUNTER 2025-04-29 06:19 | Outpatient (REF) | payer MEDICARE, BC, SELFPAY ==
--- NOTE | ~2025-04-29 | FL_ITS ---
EXAMINATION: FL GUIDANCE ONLY HISTORY: M51.362 - Other intervertebral disc degeneration, lumbar region with COMPARISON: None available. TECHNIQUE: Fluoroscopy time: 0.2 minutes. Cumulative Dose: 8.74 mGy. DAP: 0.0594 mGym2 Images: 3. FINDINGS: Fluoroscopic spot films of the pelvis demonstrate a needle and contrast material overlying the sacrum. FL/FL guidance in treatment room IMPRESSION: Fluoroscopy during procedure. Please see procedure report for additional information. Electronically signed by: Elory Carlos MD 04/29/2025 03:39 PM EDT
--- OUTSIDE RECORDS SUMMARY | 2025-04-29 06:22 | XMS_ITS | Clinical Summary ---
Author Organization [facility] Facility Address [address] [place] [address] Care Team Providers Care Desk Monitor Name Role Phone Unavailable Primary Care Provider [...] patient's age to complete this topic Insurance [facility] ([id number] Medicare
--- OUTSIDE RECORDS SUMMARY | 2025-04-29 06:22 | XMS_ITS | Clinical Summary ---
Author Organization [address] [facility] Address [address] [place] [address] Phone Care Team Providers Care Leak Hunter Name Role Phone Osmany Brownnig MD Primary Care Provider Allergies Active Allergy [...] age to complete this topic Insurance MEDICARE [facility] Care Teams Leak Hunter Relationship Specialty Start Date End Date Osmany Browning MD [address] [place] [address] [address] PCP - General Internal Medicine 12/08/24
== END 2025-04-29 06:20 | disposition home or self-care (01) ==
LOC: CF 06:19
PROVIDERS: Visit Provider Internal Medicine
DX: M51.362 Other intervertebral disc degeneration, lumbar region with discogenic back pain and lower extremity pain (principal); M54.16 Radiculopathy, lumbar region
CPT/HCPCS: 62323; J2003; J3301; Q9967

== ENCOUNTER 2025-04-29 10:30 | Outpatient (AMB) | payer MEDICARE, BC, SELFPAY ==
[2025-04-29 10:38] VITALS: BP 124/69; PULSE 81; RESP 16; O2SAT 99; BMI 38.4
--- NOTE | 2025-04-29 10:38 | A.OFFVIS_ITS ---
Vital Signs 04/29/25 10:38 04/29/25 10:46 Height 5 ft 2 in 5 ft 2 in Weight 210 lb 210 lb BMI 38.4 38.4 BP 124/69 129/76 Blood Pressure Location Lt brachial Lt radial Position Sitting Sitting Respiration 16 16 Pulse 81 71 Pulse Source Pulse Oximeter Pulse Oximeter Pulse Oximetry (%) 99 99 Oxygen Delivery Method Room Air Room Air Intake Visit Reasons: Caudal ROSY/ ativan Allergies Sulfa (Sulfonamide Antibiotics) (SULFA (SULFONAMIDE ANTIBIOTICS)) Allergy (Severe, Verified 04/14/25 13:37) ANAPHYLAXIS Penicillins (PENICILLINS) Allergy (Mild, Verified 04/14/25 13:37) RASH latex Adverse Reaction (Severe, Verified 04/14/25 13:37) Rash doxycycline Adverse Reaction (Mild, Verified 04/14/25 13:37) Abdominal Pain HPI HPI Caudal ROSY/ ativan: Details: Patient presents for scheduled procedure. Denies any recent cough, cold, infection, fever or other significant changes in medical history since last office visit. COUNTS INCLUDE 234 BEDS AT THE [facility] Medical History Degenerative joint disease of shoulder, right Osteoarthritis Arthritis Back pain Celiac sprue GERD (gastroesophageal reflux disease) Anxiety Numbness Sepsis Sleep apnea Sacroiliac dysfunction Migraine Burn injury Sinusitis chronic, frontal Osteopenia Obesity (BMI 30-39.9) Major depression, recurrent Insomnia Primary osteoarthritis Urinary frequency Mitral valve prolapse Allergic rhinitis Gastritis Pure hypercholesterolemia Restless leg syndrome Cervicalgia Lumbar degenerative disc disease Fibromyalgia Surgical History History of lumbar spinal fusion History of bilateral knee arthroplasty Hx of eye surgery History of cataract surgery History of carpal tunnel release History of bunionectomy S/P GINGER-BSO (total abdominal hysterectomy and bilateral salpingo-oophorectomy) History of repair of rotator cuff History of arthroscopy of both knees Hx of cholecystectomy Hx of endoscopy History of colonoscopy Family History Father History of cancer Mother History of cancer History of high blood pressure Hx of diabetes mellitus Social History Household Members: Significant Other Household Members Other:: DAUGHTER AND HER FAMILY Housing: House Are you a primary lawn care worker to a significant other at home: No Do you presently have visiting nurse or other home services: No Alcohol intake: current Alcohol intake frequency: holidays/special occasions only Patient Tobacco Use Status: Never used Tobacco Tobacco use type: Cigarette e-Cigarette/Vaping Use: Never Used Second Hand Smoke Exposure: Yes service: No Current occupational status: retired Cognitive needs: No Hearing needs: No Vision needs: Yes Physical Exam Vital Signs: Last Vital Signs Pulse 71 04/29/25 10:46 Resp 16 04/29/25 10:46 BP 129/76 04/29/25 10:46 Pulse Ox 99 04/29/25 10:46 Oxygen Delivery Method Room Air 04/29/25 10:46 BMI result Body Mass Index 38.4 Office Procedures AMB Joint Injection/Aspiration Joint Injection/Aspiration Details: Caudal ROSY with catheter After obtaining written consent, pre-procedure blood pressure and pulse were measured. The patient was placed in the prone position. The lumbosacral area was widely prepped with chloraprep and draped in sterile fashion. The skin overlying the target was anesthetized with 0.5% lidocaine. A 17 G needle was used to access the caudal epidural space using anatomic landmarks and x-ray guidance. We then threaded a catheter up to the L5/S1 level and injected contrast 1cc omnipaque 180 for verification of epidural spread. Following negative aspiration of heme or CSF, a mixture of 5 ml 0.5% lidocaine with 80 mg triamcinilone was injected with minimal pressure into the epidural space. The needle was removed, skin cleansed and a sterile bandage was applied. The patient tolerated the procedure well and no complications were encountered. Following the procedure the patient's vital signs were stable. The patient was discharged home in good condition with post-procedural instructions. Time Out: Immediately prior to the procedure, the following was verbally confirmed that there is a signed consent form and that the correct patient, planned procedure, site and side are consistent with documentation and that necessary equipment and/or blood products are available prior to the start of the case. Complications: none EBL: <5 cc Coding 36256 - Caudal/Lumbar Epidural/Interlaminar with fluoroscopy Procedure code (CPT) selection complete Assessment & Plan Assessment & Plan (1) Lumbar radiculopathy: Code(s): M54.16 - Radiculopathy, lumbar region Category: Medical Plan Patient is status post caudal ROSY with catheter. Patient tolerated procedure well and was discharged home in stable condition with discharge instructions. All questions were answered. We will follow-up via telephone or in clinic to assess response to therapy. A follow-up appointment was made during today's visit. Orders: Orders FL guidance in treatment room 04/29/25 M51.362 - Other intervertebral disc degeneration, lumbar region with discogenic back pain and lower extremity pain Medications: New lorazepam (Ativan) Take 30 minutes prior to arrival to procedure 1 mg PO ONCE 1 tab 0RF anxiety Coding Level of Care Code Procedure Only Diagnoses Lumbar radiculopathy M54.16 CPT Codes Coding - Joint 11: 81653 - Caudal/Lumbar Epidural/Interlaminar with fluoroscopy ([id number])
[2025-04-29 10:46] VITALS: BP 129/76; PULSE 71; RESP 16; O2SAT 99; BMI 38.4
== END 2025-04-29 11:38 | disposition home or self-care (01) ==
LOC: HO.PMCPRC 10:30
PROVIDERS: PCP Internal Medicine; Visit Provider Internal Medicine
DX: M54.16 Radiculopathy, lumbar region (principal)
CPT/HCPCS: 62323

== ENCOUNTER 2025-05-26 10:29 | Outpatient (AMB) | payer MEDICARE, BC, SELFPAY ==
--- NOTE | 2025-05-26 10:50 | MHC.OFFVIS ---
Vital Signs 05/26/25 10:52 Height 5 ft 2 in Weight 204 lb BMI 37.3 BP 139/63 Blood Pressure Location Lt brachial Position Sitting Respiration 16 Pulse 87 Pulse Source Pulse Oximeter Pulse Oximetry (%) 98 Oxygen Delivery Method Room Air Intake Visit Reasons: s/p caudal ROSY Wallcovering Hanger Required: No Allergies Sulfa (Sulfonamide Antibiotics) (SULFA (SULFONAMIDE ANTIBIOTICS)) Allergy (Severe, Verified 05/26/25 10:55) ANAPHYLAXIS Penicillins (PENICILLINS) Allergy (Mild, Verified 05/26/25 10:55) RASH latex Adverse Reaction (Severe, Verified 05/26/25 10:55) Rash doxycycline Adverse Reaction (Mild, Verified 05/26/25 10:55) Abdominal Pain Medication List - Last Reconciled 05/26/25 by Bhakti Avila LPN albuterol sulfate 90 mcg/actuation 2 puffs inhalation Q6H PRN atorvastatin 10 mg PO DAILY 90 days yunhuzeqkj-voaqfti-oessobcj 50-325-40 mg 1 cap PO Q6-8H PRN 30 days calcium carbonate (Calcium 600) 600 mg PO DAILY cholecalciferol (vitamin D3) (Vitamin D3) 25 mcg PO DAILY fluticasone propionate 50 mcg/actuation 1 spray intranasal DAILY lidocaine 5% 1 patch topical DAILY loratadine (Claritin) 10 mg PO BEDTIME lorazepam 0.5 mg PO DAILY PRN 30 days metaxalone 800 mg PO TID PRN fjqdxptzkhqi-bizwxhrr-vwammh (Multivitamin 50 Plus tablet) 1 tab PO DAILY olopatadine 0.7% (Pataday Once Daily Relief) 1 drp ophthalmic (eye) Q24H PRN omeprazole 20 mg PO DAILY@0630 prednisone 20 mg PO DAILY 3 days pregabalin 75 mg PO BID 30 days ropinirole 1 mg PO BEDTIME 90 days sumatriptan succinate 100 mg PO DAILY PRN 30 days tramadol 100 mg (2 x 50 mg) PO Q6H PRN 48 days venlafaxine ER 150 mg PO DAILY zolpidem ER 12.5 mg PO BEDTIME PRN 30 days HPI HPI s/p caudal ROSY: Details: History of Present Illness The patient is a 69-year-old female presenting with follow-up after a caudal epidural steroid injection. She reports that the injection provided 100% relief from the nerve pain on the side, which she no longer experiences. The patient has a history of lumbar fusion surgery, after which she continues to experience pain that alternates between the left and right sides, but does not radiate down the legs. The pain is described as nagging and is located in the same spot as before the surgery, suggesting possible sacroiliac joint involvement. The patient has previously undergone sacroiliac joint injections, which provided 70-80% relief for about five months. She reports that the pain is not hindering her ability to walk, and she manages it with stretches that manipulate the sacroiliac joint. Pain Description - Onset: Post-lumbar fusion surgery - Quality: Nagging pain - Location: Alternates between left and right sides, same spot as before surgery - Radiation: Does not radiate down the legs - Exacerbating factors: Certain activities - Relieving factors: Stretches that manipulate the sacroiliac joint Physical Exam - Musculoskeletal: Positive sacroiliac joint compression test - Musculoskeletal: Positive thrust test - Musculoskeletal: Equivocal Gaenslen test; SIJ stretch feels better Results Pain Management - Affect: Pain does not hinder walking - Analgesia: Previous sacroiliac joint injections provided 70-80% relief for five months - Activities of Daily Living: Pain managed with stretches [facility] Medical History Degenerative joint disease of shoulder, right Osteoarthritis Arthritis Back pain Celiac sprue GERD (gastroesophageal reflux disease) Anxiety Numbness Sepsis Sleep apnea Sacroiliac dysfunction Migraine Burn injury Sinusitis chronic, frontal Osteopenia Obesity (BMI 30-39.9) Major depression, recurrent Insomnia Primary osteoarthritis Urinary frequency Mitral valve prolapse Allergic rhinitis Gastritis Pure hypercholesterolemia Restless leg syndrome Cervicalgia Lumbar degenerative disc disease Fibromyalgia Surgical History History of lumbar spinal fusion History of bilateral knee arthroplasty Hx of eye surgery History of cataract surgery History of carpal tunnel release History of bunionectomy S/P GINGER-BSO (total abdominal hysterectomy and bilateral salpingo-oophorectomy) History of repair of rotator cuff History of arthroscopy of both knees Hx of cholecystectomy Hx of endoscopy History of colonoscopy Family History Father History of cancer Mother History of cancer History of high blood pressure Hx of diabetes mellitus Social History Household Members: Significant Other Household Members Other:: DAUGHTER AND HER FAMILY Housing: House Are you a primary child care centre director to a significant other at home: No Do you presently have visiting nurse or other home services: No Alcohol intake: current Alcohol intake frequency: holidays/special occasions only Patient Tobacco Use Status: Never used Tobacco Tobacco use type: Cigarette e-Cigarette/Vaping Use: Never Used Second Hand Smoke Exposure: Yes service: No Current occupational status: retired Cognitive needs: No Hearing needs: No Vision needs: Yes Physical Exam Vital Signs: Last Vital Signs Pulse 87 05/26/25 10:52 Resp 16 05/26/25 10:52 BP 139/63 05/26/25 10:52 Pulse Ox 98 05/26/25 10:52 Oxygen Delivery Method Room Air 05/26/25 10:52 BMI result Body Mass Index 37.3 Assessment & Plan Assessment & Plan (1) Sacroiliac dysfunction: Code(s): M53.3 - Sacrococcygeal disorders, not elsewhere classified Category: Medical Plan Plan - Plan for a repeat therapeutic sacroiliac joint injection. Previous sacroiliac joint injections provided 70-80% relief for five months - Submit authorization request for sacroiliac joint injection. - Follow-up appointment scheduled for trigger point injection in two weeks. Patient was informed and verbally consented to the use of an ambient scribe for clinic note documentation during this visit. Discussion Notes I discussed with the patient the possibility of sacroiliac joint dysfunction contributing to her pain and the option of a repeat SIJ injection. We reviewed the procedure, including the potential for 70-80% relief if the sacroiliac joint is the pain source. I explained that a follow-up for a trigger point injection is scheduled in two weeks. Patient Instructions - Continue with current stretching exercises to manage pain. - Attend the follow-up appointment for trigger point injection in two weeks. - Await authorization for sacroiliac joint injection. Coding Level of Care Code Est Pt Level 3 (39031) Diagnoses Sacroiliac dysfunction M53.3
[2025-05-26 10:52] VITALS: BP 139/63; PULSE 87; RESP 16; O2SAT 98; BMI 37.3
--- OUTSIDE RECORDS SUMMARY | 2025-05-26 11:45 | XMS_ITS | Clinical Summary ---
Author Organization [facility] Facility Address [address] [place] [address] Care Team Providers Care Telecommunications Consultant Name Role Phone Unavailable Primary Care Provider [...] to complete this topic [id number] Medicare
--- OUTSIDE RECORDS SUMMARY | 2025-05-26 11:45 | XMS_ITS | Clinical Summary ---
Author Organization [address] [facility] Address [address] [place] [address] Phone Care Team Providers Care Still Photographer Name Role Phone Osmany Browning MD Primary [...] age to complete this topic Insurance MEDICARE [facility] Care Teams Still Photographer Relationship Specialty Start Date End Date Osmany Browning MD [address] [place] [address] [address] PCP - General Internal Medicine 12/08/24
== END 2025-05-26 11:32 | disposition home or self-care (01) ==
LOC: HO.PMC 10:30
PROVIDERS: PCP Internal Medicine; Visit Provider Internal Medicine
DX: M53.3 Sacrococcygeal disorders, not elsewhere classified (principal)
CPT/HCPCS: 99213

== ENCOUNTER → 2025-05-26 10:29 | Outpatient (BNVA) | payer MEDICARE, BC, SELFPAY | PROVIDERS: PCP Internal Medicine; Visit Provider Internal Medicine | DX: M53.3 Sacrococcygeal disorders, not elsewhere classified (principal) | CPT/HCPCS: 99212 ==

== ENCOUNTER 2025-06-03 11:06 | Outpatient (AMB) | payer MEDICARE, BC, SELFPAY ==
[2025-06-03 11:53] VITALS: BP 128/66; PULSE 85; TEMP 37.2; O2SAT 97; BMI 38.0
--- NOTE | 2025-06-03 11:53 | AM.OFFWIN_ITS ---
Intake Vital Signs 06/03/25 11:53 Height 5 ft 2 in Weight 208 lb BMI 38.0 BP 128/66 Blood Pressure Location Rt brachial Position Sitting Pulse 85 Pulse Source Pulse Oximeter Temp 98.9 F Temp Source Oral Pulse Oximetry (%) 97 Oxygen Delivery Method Room Air Intake Visit Reasons: EP Sinus/ear infection? Intake Note: pt presents with sinus congestion and ear pain Patient Tobacco Use Status: Never used Tobacco Allergies Sulfa (Sulfonamide Antibiotics) (SULFA (SULFONAMIDE ANTIBIOTICS)) Allergy (Severe, Verified 06/03/25 11:56) ANAPHYLAXIS Penicillins (PENICILLINS) Allergy (Mild, Verified 06/03/25 11:56) RASH latex Adverse Reaction (Severe, Verified 06/03/25 11:56) Rash doxycycline Adverse Reaction (Mild, Verified 06/03/25 11:56) Abdominal Pain Do you need a note to return to daycare/school/sports/work: No HPI HPI Comments History of Present Illness Details History of Present Illness - The patient is a 69-year-old female pr esenting with chronic sinusitis. - The sinus issues have persisted for se veral months, despite the use of saline solution, nasal spray, Flonase, and allergy pills. - Symptoms include a sensation of fullne ss from the base of the head wrapping around the temples, and throbbing headaches upon waking. - The patient reports intermittent dizzi ness, particularly in the mornings. - The patient has a headache from the ba ck of her head to the top and into the temples. - She has a pressure in the maxillary an d frontal sinuses. - She experiences dull pain in both ears , and has a history of deep sinuses requiring stronger antibiotics than Z-Jeffrey, which is ineffective. - The patient is allergic to penicillin and sulfa drugs, limiting antibiotic options. - She has an ENT appt next year. - She denies fever, chills, sore throat, cough, n/v/d. Physical Exam General: Cooperative, healthy appearing, comfortable, no acute distress and well developed Head: Normal to inspection Ears: Hearing grossly normal bilaterally. No tragus or mastoid tenderness noted. Auditory canals clear bilaterally. TM's normal, not bulging. No fluid noted. Nose: Normal external nose present. Moist mucosa. Turbinates normal bilaterally, not boggy. Face and sinus: Tenderness to palpation of the frontal and maxillary sinuses bilaterally. Neck: Normal visual inspection and Yes full ROM. No lymphadenopathy noted. Respiratory: Normal respiratory effort and able to speak in complete sentences. Clear to auscultation bilaterally Cardiovascular: Regular rate and rhythm. Normal S1 and S2 GI: Normal to inspection. Soft to palpation and nontender, nondistended. No guarding noted. Skin: No rashes or lesions noted [facility] Medical History Degenerative joint disease of shoulder, right Osteoarthritis Arthritis Back pain Celiac sprue GERD (gastroesophageal reflux disease) Anxiety Numbness Sepsis Sleep apnea Sacroiliac dysfunction Migraine Burn injury Sinusitis chronic, frontal Osteopenia Obesity (BMI 30-39.9) Major depression, recurrent Insomnia Primary osteoarthritis Urinary frequency Mitral valve prolapse Allergic rhinitis Gastritis Pure hypercholesterolemia Restless leg syndrome Cervicalgia Lumbar degenerative disc disease Fibromyalgia Surgical History History of lumbar spinal fusion History of bilateral knee arthroplasty Hx of eye surgery History of cataract surgery History of carpal tunnel release History of bunionectomy S/P GINGER-BSO (total abdominal hysterectomy and bilateral salpingo-oophorectomy) History of repair of rotator cuff History of arthroscopy of both knees Hx of cholecystectomy Hx of endoscopy History of colonoscopy Family History Father History of cancer Mother History of cancer History of high blood pressure Hx of diabetes mellitus Social History Household Members: Significant Other Household Members Other:: DAUGHTER AND HER FAMILY Housing: House Are you a primary medical care manager to a significant other at home: No Do you presently have visiting nurse or other home services: No Alcohol intake: current Alcohol intake frequency: holidays/special occasions only Patient Tobacco Use Status: Never used Tobacco Tobacco use type: Cigarette e-Cigarette/Vaping Use: Never Used Second Hand Smoke Exposure: Yes service: No Current occupational status: retired Cognitive needs: No Hearing needs: No Vision needs: Yes Review of Systems Const All systems reviewed & are unremarkable except as noted in HPI and below Physical Exam Vital Signs: Last Vital Signs Temp 98.9 F 06/03/25 11:53 Pulse 85 06/03/25 11:53 BP 128/66 06/03/25 11:53 Pulse Ox 97 06/03/25 11:53 Oxygen Delivery Method Room Air 06/03/25 11:53 BMI result Body Mass Index 38.0 Assessment & Plan Assessment & Plan (1) Sinusitis: Code(s): J32.9 - Chronic sinusitis, unspecified Qualifiers: Sinusitis location: other Chronicity: acute Recurrence: not specified as recurrent Qualified Code(s): J01.80 - Other acute sinusitis Plan Most likely sinusitis vs URI plan - has chronic sinusitis and has multiple allergies to antibiotics - will give her Levaquin due to allergies to PCN, Bactrim and Doxycycline - prednisone for 5 days - continue with Flonase and allergy medication - tylenol or motrin as needed for pain - follow up with PCP Coding Level of Care Code Est Pt Level 3 (97632) Diagnoses Other acute sinusitis, recurrence not specified J01.80 Sinusitis location: other Chronicity: acute Recurrence: not specified as recurrent
--- OUTSIDE RECORDS SUMMARY | 2025-06-03 12:26 | XMS_ITS | Clinical Summary ---
Author Organization [facility] Facility Address [address] [place] [address] Care Team Providers Care Banquet Coordinator Name Role Phone Unavailable Primary Care Provider [...] patient's age to complete this topic Insurance [id number] Medicare
--- OUTSIDE RECORDS SUMMARY | 2025-06-03 12:26 | XMS_ITS | Clinical Summary ---
Author Organization [facility] Address [address] [place] [address] Phone Care Team Providers Care Campaign Assistant Name Role Phone Osmany Browning MD Primary [...] age to complete this topic Insurance MEDICARE [facility] Care Teams Campaign Assistant Relationship Specialty Start Date End Date Osmany Browning MD [address] [place] [address] [address] PCP - General Internal Medicine 12/08/24
== END 2025-06-03 12:25 | disposition home or self-care (01) ==
PROVIDERS: PCP Internal Medicine; Visit Provider Physician Assistant Medical
DX: J01.80 Other acute sinusitis (principal)

== ENCOUNTER → 2025-06-03 11:06 | Outpatient (BNVA) | payer MEDICARE, BC, SELFPAY | PROVIDERS: PCP Internal Medicine; Visit Provider Physician Assistant Medical | DX: J01.80 Other acute sinusitis (principal) | CPT/HCPCS: 99212 ==

== ENCOUNTER 2025-06-09 10:20 | Outpatient (AMB) | payer MEDICARE, BC, SELFPAY ==
[2025-06-09 10:44] VITALS: BP 131/67; PULSE 85; RESP 16; O2SAT 97; BMI 38.0
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
--- OUTSIDE RECORDS SUMMARY | 2025-06-09 12:09 | XMS_ITS | Clinical Summary ---
Author Organization [address] [facility] Address [address] [place] [address] Phone Care Team Providers Care Respiratory Care Faculty Name Role Phone Osmany Browning MD Primary [...] to complete this topic Insurance MEDICARE [facility] Care Teams Respiratory Care Faculty Relationship Specialty Start Date End Date Osmany Browning MD [address] [place] [address] [address] PCP - General Internal Medicine 12/08/24
--- OUTSIDE RECORDS SUMMARY | 2025-06-09 12:10 | XMS_ITS | Clinical Summary ---
Author Organization [facility] Facility Address [address] [place] [id number] Care Team Providers Care [employer] Name Role Phone Unavailable Primary Care Provider [...] patient's age to complete this topic Insurance [facility] ([id number] Medicare
== END 2025-06-09 11:11 | disposition home or self-care (01) ==
LOC: HO.PMC 10:21
PROVIDERS: PCP Internal Medicine; Visit Provider Internal Medicine
DX: M79.18 Myalgia, other site (principal)
CPT/HCPCS: 20552

== ENCOUNTER → 2025-06-09 10:20 | Outpatient (BNVA) | payer MEDICARE, BC, SELFPAY | PROVIDERS: PCP Internal Medicine; Visit Provider Internal Medicine | DX: M79.18 Myalgia, other site (principal) | CPT/HCPCS: 20552; J2795 ==

== ENCOUNTER 2025-06-29 11:58 | Outpatient (AMB) | payer MEDICARE, BC, SELFPAY ==
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
--- OUTSIDE RECORDS SUMMARY | 2025-06-29 14:51 | XMS_ITS | Clinical Summary ---
Author Organization [address] [facility] Address [address] [place] [address] Phone Care Team Providers Care Cylinder Inspector And Tester Name Role Phone Osmany Browning MD Primary [...] age to complete this topic Insurance MEDICARE [facility] Care Teams Cylinder Inspector And Tester Relationship Specialty Start Date End Date Osmany Browning MD [address] [place] [address] [address] PCP - General Internal Medicine 12/08/24
--- OUTSIDE RECORDS SUMMARY | 2025-06-29 14:51 | XMS_ITS | Clinical Summary ---
Author Organization [facility] Address [address] [place] [id number] Care Team Providers Care Electronic Publisher Name Role Phone Unavailable Primary Care Provider [...] to complete this topic Insurance [id number] Medicare
== END 2025-06-29 12:44 | disposition home or self-care (01) ==
LOC: HO.HSM 11:58
PROVIDERS: PCP Internal Medicine; Visit Provider Psychiatry & Neurology Neurology
DX: G24.8 Other dystonia (principal); F98.8 Other specified behavioral and emotional disorders with onset usually occurring in childhood and adolescence; G25.81 Restless legs syndrome; M51.362 Other intervertebral disc degeneration, lumbar region with discogenic back pain and lower extremity pain
CPT/HCPCS: 99214

== ENCOUNTER → 2025-06-29 11:58 | Outpatient (BNVA) | payer MEDICARE, BC, SELFPAY | PROVIDERS: PCP Internal Medicine; Visit Provider Psychiatry & Neurology Neurology | DX: G24.8 Other dystonia (principal); G25.81 Restless legs syndrome; F98.8 Other specified behavioral and emotional disorders with onset usually occurring in childhood and adolescence; M51.362 Other intervertebral disc degeneration, lumbar region with discogenic back pain and lower extremity pain | CPT/HCPCS: 99212 ==

== ENCOUNTER 2025-07-26 10:54 | Outpatient (AMB) | payer MEDICARE, BC, SELFPAY ==
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
[2025-07-26 11:11] VITALS: BP 110/66; PULSE 85; RESP 16; O2SAT 98; BMI 38.4
--- OUTSIDE RECORDS SUMMARY | 2025-07-26 13:10 | XMS_ITS | Clinical Summary ---
Author Organization [facility] Facility Address [address] [place] [id number] Care Team Providers Care Heavy Coil Winder Name Role Phone Unavailable Primary Care Provider [...] patient's age to complete this topic Insurance [facility] ([id number] Medicare
--- OUTSIDE RECORDS SUMMARY | 2025-07-26 13:11 | XMS_ITS | Clinical Summary ---
Author Organization [facility] Address [address] [place] [address] Phone Care Team Providers Care Fire Technology Instructor Name Role Phone Osmany Browning MD Primary [...] Breast Cancer Screening 1955 Colorectal Cancer Screening: Colonoscopy 1955 DTaP,Tdap,and Td Vaccines (1 - Tdap) 1976 Zoster Vaccines (2 of 2) 08/21/2021 06/26/2021 Falls Risk Assessment 09/24/2024 Hepatitis C Screening [...] age to complete this topic Insurance MEDICARE [facility] Care Teams Fire Technology Instructor Relationship Specialty Start Date End Date Osmany Browning MD [address] [place] [address] [address] PCP - General Internal Medicine 12/08/24
== END 2025-07-26 11:52 | disposition home or self-care (01) ==
LOC: HO.PMC 10:55
PROVIDERS: PCP Internal Medicine; Visit Provider Internal Medicine
DX: M54.12 Radiculopathy, cervical region (principal)
CPT/HCPCS: 99214

== ENCOUNTER → 2025-07-26 10:54 | Outpatient (BNVA) | payer MEDICARE, BC, SELFPAY | PROVIDERS: PCP Internal Medicine; Visit Provider Internal Medicine | DX: M54.12 Radiculopathy, cervical region (principal); Z79.891 Long term (current) use of opiate analgesic; Z79.899 Other long term (current) drug therapy | CPT/HCPCS: 99212 ==

== ENCOUNTER 2025-07-28 11:39 | Outpatient (REF) | payer MEDICARE, BC, SELFPAY ==
--- NOTE | ~2025-07-28 | CT_ITS ---
EXAMINATION: CT LUMBAR SPINE WITHOUT CONTRAST CLINICAL INFORMATION: Other intervertebral disc degeneration, lumbar region. COMPARISON: Lumbar spine radiographs 09/15/2024. Correlation made with CT abdomen pelvis 02/23/2025. TECHNIQUE: Spiral CT imaging of the lumbar spine performed in axial plane without contrast. Multiplanar reformatted images were constructed from the axial data set. This CT examination was performed using dose optimization techniques as appropriate, variously including the following: *Automated exposure control *Adjustment of mA and/or kV according to patient size (this includes techniques or standardized protocols for targeted exams where dose is matched to indication/reason for exam; i.e. extremities or head) *Use of iterative reconstruction technique FINDINGS: There is no significant scoliosis. There is a normal lumbar lordosis. There has been posterior fusion and discectomy of L4-S1 with transpedicular screws, posterior connecting rods, and intervertebral disc grafts. The hardware all appears intact, well seated, without evidence of loosening or complication. There is a 2 mm degenerative appearing retrolisthesis of L1 on L2, and a mild anterolisthesis of L4 upon L5, unchanged from prior exams. No new subluxation. There is no fracture, compression deformity, or suspicious bone lesion evident. Moderate disc degeneration is present at L3-4. Mild degeneration noted at L1-L2 and L2-L3. There is normal facet alignment bilaterally. There are moderate hypertrophic degenerative facet changes mainly spanning L3-S1 bilaterally. No significant central canal or neural foraminal narrowing is evident at L1-2, L2-3, or L3-4. At L4-5, the central canal cannot be well evaluated due to streak artifact. The neural foramen appear widely patent from probable foraminotomies. L5-S1, the central canal again cannot be well evaluated due to streak artifact although there is no gross high-grade central canal stenosis evident. Neural foramen appear bilaterally patent due to probable foraminotomies. Mild degenerative changes of the left greater than right SI joints present. Imaged soft tissues demonstrate prior cholecystectomy. The kidneys appear normal. The aorta is nonaneurysmal. Imaged bowel structures appear normal. No abnormal lymphadenopathy present. CT/CT lumbar spine wo IV con IMPRESSION: 1. Instrumented fusion of L4-S1 without complication evident. 2. No CT evidence of significant central canal stenosis or high-grade neural foraminal narrowing. 3. No acute bony abnormalities. Mild to moderate degenerative spondylosis of the lumbar spine as discussed above. Electronically signed by: Rasta Liao MD 07/28/2025 12:19 PM EDT RP
--- OUTSIDE RECORDS SUMMARY | 2025-07-28 16:09 | XMS_ITS | Clinical Summary ---
Author Organization [facility] Address [address] [place] [address] Phone Care Team Providers Care Supply Chain Intern Name Role Phone Osmany Browning MD Primary [...] to complete this topic Insurance MEDICARE [facility] Care Teams Supply Chain Intern Relationship Specialty Start Date End Date Osmany Browning MD [address] [place] [address] [address] PCP - General Internal Medicine 12/08/24
--- OUTSIDE RECORDS SUMMARY | 2025-07-28 16:09 | XMS_ITS | Clinical Summary ---
Author Organization [facility] Facility Address [address] [place] [address] Care Team Providers Care Ict Developer Name Role Phone Unavailable Primary Care Provider [...] patient's age to complete this topic [facility] ([id number]) Medicare
== END 2025-07-28 11:40 | disposition home or self-care (01) ==
LOC: HO.CT 11:39
PROVIDERS: PCP Internal Medicine; Visit Provider Physician Assistant
DX: M51.369 Other intervertebral disc degeneration, lumbar region without mention of lumbar back pain or lower extremity pain (principal)
CPT/HCPCS: 72131

== ENCOUNTER → 2025-07-28 11:44 | Outpatient (BNV) | payer MEDICARE, BC, SELFPAY | PROVIDERS: PCP Internal Medicine; Visit Provider Radiology Diagnostic Radiology | DX: M47.816 Spondylosis without myelopathy or radiculopathy, lumbar region (principal) | CPT/HCPCS: 72131 ==

== ENCOUNTER 2025-08-06 09:25 | Outpatient (REF) | payer MEDICARE, BC, SELFPAY ==
[2025-08-06 10:28] LABS: MANUAL DIFF FLAG NO
[2025-08-06 10:46] LABS: Hematocrit 39.9 % (37.0-47.0); Hemoglobin 13.1 g/dl (12.0-16.0); Imm Gran Abs Auto 0.02 X10*3/uL (0.00-0.03); Imm Gran Pct Auto 0.4 % (0.0-0.4); Lymphocytes Absolute Auto 2.1 X10*3/uL (1.2-4.9); Mean Corpuscular HGB Conc 32.8 g/dl (31.0-35.0); Mean Corpuscular Hemoglobin 31.3 pg (27.0-33.0); Mean Corpuscular Volume 95.2 fL (80.0-98.0); NRBC Abs Auto 0.000 X10*3/uL (0.0-0.012); NRBC Pct Auto 0.0 /100WBC (0.0-0.2); Platelet Count 314 X10*3/uL (160-400); Red Blood Count 4.19 X10*6/uL (4.20-5.50); White Blood Count 5.6 X10*3/uL (4.8-10.8)
[2025-08-06 11:43] LABS: Alanine Aminotransferase 25 U/L (0-31); Albumin Level 4.2 g/dL (3.5-5.0); Alkaline Phosphatase 102 U/L (39-117); Anion Gap 12 (12-20); Aspartate Amino Transferase 26 U/L (5-31); Blood Urea Nitrogen 8 mg/dL (9-16); Calcium 8.9 mg/dL (8.4-10.2); Carbon Dioxide 29 mmol/L (22-29); Chloride 106 mmol/L (96-108); Cholesterol 184 mg/dL (<200); Estimated Glomerular Filt Rate > 60; HDL Cholesterol 69 mg/dL (>40); Potassium 4.2 mmol/L (3.3-5.1); Sodium 143 mmol/L (135-145); Total Protein 7.2 g/dL (6.5-8.0); Triglycerides 57 mg/dL (<150)
[2025-08-06 11:56] LABS: Appearance Urine Clear; Glucose Urine UA Negative (Negative); PH 7.5 (5.0-9.0); Specific Gravity - Urine 1.020 (1.005-1.025); UMIC TRIGGER UACC YES
== END 2025-08-06 09:26 | disposition home or self-care (01) ==
LOC: HO.LAB 09:25
PROVIDERS: PCP Internal Medicine; Visit Provider Nurse Practitioner Family
DX: K90.0 Celiac disease (principal); K21.9 Gastro-esophageal reflux disease without esophagitis; K52.9 Noninfective gastroenteritis and colitis, unspecified; E78.00 Pure hypercholesterolemia, unspecified; E55.9 Vitamin D deficiency, unspecified; D64.9 Anemia, unspecified
CPT/HCPCS: 36415; 80053; 80061; 81001; 82306; 84443; 85025; 99202

== ENCOUNTER 2025-08-06 09:25 | Outpatient (AMB) | payer MEDICARE, BC, SELFPAY ==
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
[2025-08-06 09:38] VITALS: BP 146/64; PULSE 82; O2SAT 96; BMI 38.4
--- OUTSIDE RECORDS SUMMARY | 2025-08-06 10:26 | XMS_ITS | Clinical Summary ---
Author Organization [facility] Address [address] [place] [address] Phone Care Team Providers Care Dog Pound Attendant Name Role Phone Osmany Browning MD Primary [...] MEDICARE [facility] Care Teams Dog Pound Attendant Relationship Specialty Start Date End Date Osmany Bronwing MD [address] [place] [address] [address] PCP - General Internal Medicine 12/08/24
== END 2025-08-06 09:57 | disposition home or self-care (01) ==
LOC: HO.HGI 09:26
PROVIDERS: PCP Internal Medicine; Visit Provider Nurse Practitioner Family
DX: K90.0 Celiac disease (principal); R19.7 Diarrhea, unspecified; K52.9 Noninfective gastroenteritis and colitis, unspecified; K21.9 Gastro-esophageal reflux disease without esophagitis
CPT/HCPCS: 99204; G2211

== ENCOUNTER 2025-08-17 10:54 | Outpatient (AMB) | payer MEDICARE, BC, SELFPAY ==
[2025-08-17 10:56] VITALS: BP 130/84; PULSE 88; O2SAT 99; BMI 38.8
--- NOTE | 2025-08-17 10:56 | A.OFFPC_ITS ---
Vital Signs 08/17/25 10:56 Height 5 ft 2 in Weight 212 lb 6 oz BMI 38.8 BP 130/84 Blood Pressure Location Lt brachial Position Sitting Pulse 88 Pulse Source Pulse Oximeter Pulse Oximetry (%) 99 Oxygen Delivery Method Room Air Intake Visit Reasons: 4mth f/u Hydro Sprayer Operator Required: No Accompanied by: Self / Same As Patient Allergies Sulfa (Sulfonamide Antibiotics) (SULFA (SULFONAMIDE ANTIBIOTICS)) Allergy (Severe, Verified 08/17/25 11:23) ANAPHYLAXIS Penicillins (PENICILLINS) Allergy (Mild, Verified 08/17/25 11:23) RASH latex Adverse Reaction (Severe, Verified 08/17/25 11:23) Rash doxycycline Adverse Reaction (Mild, Verified 08/17/25 11:23) Abdominal Pain Medication List - Last Reconciled 08/17/25 by Osmany Browning MD albuterol sulfate 90 mcg/actuation 2 puffs inhalation Q6H PRN atorvastatin 10 mg PO DAILY 90 days phdmmzxneq-kdqmrhw-niihrzxj 50-325-40 mg 1 cap PO Q6-8H PRN 30 days calcium carbonate (Calcium 600) 600 mg PO DAILY cholecalciferol (vitamin D3) (Vitamin D3) 25 mcg PO DAILY dextroamphetamine-amphetamine 20 mg (Adderall) 20 mg PO DAILY famotidine 20 mg PO DAILY fluticasone propionate 50 mcg/actuation 1 spray intranasal DAILY lidocaine 5% 1 patch topical DAILY loratadine (Claritin) 10 mg PO BEDTIME lorazepam 0.5 mg PO DAILY PRN 30 days magnesium oxide 150 mg PO DAILY metaxalone 800 mg PO TID PRN qxxgumcxvqga-kurwtrgg-vyrwve (Multivitamin 50 Plus tablet) 1 tab PO DAILY olopatadine 0.7% (Pataday Once Daily Relief) 1 drp ophthalmic (eye) Q24H PRN omeprazole 20 mg PO DAILY@0630 onabotulinumtoxinA (Botox) 300 units IM [id number] pregabalin 75 mg PO BID 30 days ropinirole 1 mg PO BEDTIME 90 days sumatriptan succinate 100 mg PO DAILY PRN 30 days tramadol 100 mg (2 x 50 mg) PO Q6H PRN 48 days venlafaxine ER 150 mg PO DAILY zolpidem ER 12.5 mg PO BEDTIME PRN 30 days Tobacco use date assessed: 08/17/25 Fall risk assessment: 1 Fall in past year Last assessed Fall Risk: 08/17/25 Dental Screening Dental Screen Date: 08/17/25 Did you have a dental visit in the last 12 months?: Yes Did you have a dental problem in the last 6 months where you did not have access to dental care?: No Was dental information given to patient?: Patient has dentist HPI 4mth f/u HPI Details Patient comes in today for her follow up visit States that she is currently just getting over a cold and still has increased ear pressure and discomfort and sinus pain - thinks that she may have a sinus infection at present Adds that she tripped over some toys and fell last week and thinks that she may have broken her left 2nd toe but she did not go to get herself checked out yet Relates that her toe is currently bruised and swelled up after her fall but the bruising and swelling are now almost completely gone Feels that her right foot bunion has been getting worse lately - she has not see podiatry since she moved here from [place] a few years ago She would also like to get some help with weight loss - she tried to get on a GLP-1 recently but the Rx was not covered by her insurance She denies any fever or sore throat; denies any headaches or dizziness Denies any chest pains, no increased SOB No nausea/vomiting, no abdominal pain No change in bowel habits noted Needs her Tramadol Rx refilled today She had her follow up labs done a couple of weeks ago - to discuss her results [facility] Medical History Degenerative joint disease of shoulder, right Osteoarthritis Arthritis Back pain Celiac sprue GERD (gastroesophageal reflux disease) Anxiety Numbness Sepsis Sleep apnea Sacroiliac dysfunction Migraine Burn injury Sinusitis chronic, frontal Osteopenia Obesity (BMI 30-39.9) Major depression, recurrent Insomnia Primary osteoarthritis Urinary frequency Mitral valve prolapse Allergic rhinitis Gastritis Pure hypercholesterolemia Restless leg syndrome Cervicalgia Lumbar degenerative disc disease Fibromyalgia Surgical History History of lumbar spinal fusion History of bilateral knee arthroplasty Hx of eye surgery History of cataract surgery History of carpal tunnel release History of bunionectomy S/P GINGER-BSO (total abdominal hysterectomy and bilateral salpingo-oophorectomy) History of repair of rotator cuff History of arthroscopy of both knees Hx of cholecystectomy Hx of endoscopy History of colonoscopy Family History Father History of cancer Mother History of cancer History of high blood pressure Hx of diabetes mellitus Social History Household Members: Significant Other Household Members Other:: DAUGHTER AND HER FAMILY Housing: House Are you a primary primary care sales representative to a significant other at home: No Do you presently have visiting nurse or other home services: No Alcohol intake: current Alcohol intake frequency: holidays/special occasions only Patient Tobacco Use Status: Never used Tobacco Tobacco use type: Cigarette e-Cigarette/Vaping Use: Never Used Second Hand Smoke Exposure: Yes service: No Current occupational status: retired Cognitive needs: No Hearing needs: No Vision needs: Yes Questionnaire PHQ-9 Over the last 2 weeks, how often have you been bothered by any of the following problems? 1. Little interest or pleasure in doing things: several days 2. Feeling down, depressed, or hopeless: several days 3. Trouble falling or staying asleep, or sleeping too much: more than half the days 4. Feeling tired or having little energy: several days 5. Poor appetite or overeating: not at all 6. Feeling bad about yourself - or that you are a failure or have let yourself or your family down: not at all 7. Trouble concentrating on things, such as reading the newspaper or watching television: several days 8. Moving or speaking so slowly that other people could have noticed. Or the opposite - being so fidgety or restless that you have been moving around a lot more than usual: not at all 9. Thoughts that you would be better off or of hurting yourself in some way: not at all Total score: 6 Depression Screening Interpretation: Positive Depression Screening Follow-up: Existing condition and In treatment Depression Screening Done: Yes 23715 - PHQ-9 Billing: Yes Source: Developed by Drs. Elroy Roberts, Sunni Amaro, Yadiel Maya and colleagues, with an educational og from [employer]. Thrive Questionnaire Date Thrive assessed: 11/11/25 I am a: Patient What is your living situation today?: I have a steady place to live Within the past 12 months, did the food you bought not last and you didn't have the money to get more?: Never true Within the past 12 months, did you worry whether your food would run out before you got money to buy more?: Never true Do you have trouble paying for medicines?: No Do you have trouble getting transportation to medical appointments?: No Do you have trouble paying your heating and electricity bill?: No Do you have trouble taking care of your child, family member or friend?: No Do you have trouble with day-to-day activities such as bathing, preparing meals, shopping, managing finances, etc.?: No Are you currently unemployed and looking for a job?: No Are you interested in more education?: No Please select the resources that you would like help with: None Currently or been in a relationship where the following occur: No concerns reported THRIVE Score: 0 AUDIT C Alcohol Use Questionnaire (AUDIT-C) 1. How often do you have a drink containing alcohol?: 2-4 times a month 2. How many drinks containing alcohol do you have on a typical day when you are drinking?: 1 or 2 3. How often do you have six or more drinks on one occasion?: Never Total Score: 2 Score Reviewed/Action Taken: Yes PANFILO-7 AMB Questionnaire PANFILO-7 Date PANFILO - 7 assessed: 08/17/25 Feeling nervous, anxious, or on edge: 0 = Not at all Not being able to stop or control worryin = Several days Worrying too much about different things: 1 = Several days Trouble relaxin = Several days Being so restless that it is hard to sit still: 1 = Several days Becoming easily annoyed or irritable: 0 = Not at all Feeling afraid as if something awful might happen: 0 = Not at all Total PANFILO-7 score (0-4 normal; 5-9 mild; 10-14 moderate; 15-21 severe): 4 Source: Developed by Drs. Elroy Roberts, Sunni Amaro, Yadiel Maya and colleagues, with an educational og from [employer]. Review of Systems Const Denies chills, Denies fatigue, Denies fever(s) and Denies headache(s) ENT Denies dysphagia, Denies dizziness, Denies otalgia (but reports increased pressure/discomfort in ears), Denies headache(s), Reports nasal congestion, Reports neck pain, Denies odynophagia, Reports sinus pain and Denies sore throat Card Denies chest pain, Denies palpitations and Denies dyspnea Resp Denies chest congestion, Denies cough and Denies dyspnea GI Denies abdominal pain, Denies constipation, Denies dysphagia, Denies heartburn, Reports loose stools (on and off lately - see HPI), Denies nausea, Denies odynophagia and Denies vomiting Denies difficulty voiding, Denies nocturia, Denies dysuria and Denies urinary urgency Musc Details: recurrent sharp right inguinal pain; (+) left second toe pain, swelling and bruising although these are subsiding; increased pain over the base of the right big toe Reports back pain (chronic), Reports arthralgias (involving multiple joints) and Reports neck pain Skin/Breast Denies rash Neuro Denies dizziness, Denies headache(s), Reports paresthesias (in both hands, on and off) and Reports tremor(s) (on and off in the left hand) Psych Reports anxiety Endo Denies fatigue and Denies palpitations Physical exam (Primary Care) Vital Signs: Last Vital Signs Pulse 88 08/17/25 10:56 BP 130/84 08/17/25 10:56 Pulse Ox 99 08/17/25 10:56 Oxygen Delivery Method Room Air 08/17/25 10:56 BMI result Body Mass Index 38.8 Tobacco/Smoking Status: Tobacco use Status Tobacco use date assessed 08/17/25 08/17/25 11:00 Patient Tobacco Use Status Never used Tobacco 08/17/25 11:00 Tobacco use type Cigarette 08/17/25 11:00 e-Cigarette/Vaping Use Never Used 08/17/25 11:00 PHQ-9: PHQ-9 Score PHQ-9: Total score 6 08/17/25 12:44 Depression Screening Interpretation: Positive Depression Screening Follow-up: Existing condition and In treatment Thrive Assessment: Date of Thrive Assessment Date Thrive assessed 08/17/25 08/17/25 11:00 Currently or been in a relationship where the following occur: No concerns reported Const General: no acute distress and alert HENMT Ears: TM's normal bilaterally and EAC's normal Face and sinus: Yes sinus tenderness (mild, bilaterally) Throat: Yes posterior oropharynx normal and Yes tonsils normal (no TP congestion noted) Neck Neck: No lymphadenopathy and Yes tender Thyroid: Thyroid normal Resp Auscultation: clear to auscultation bilaterally, no rales and no wheezes Cardio Rate: regular rate Rhythm: regular rhythm Heart sounds: Murmur heart sound present systolic holo, soft and at the left sternal border GI Palpation (GI): Soft to palpation, nontender and no guarding Auscultation: normal bowel sounds General: Yes no CVA tenderness Back/Spine/Pelvis Other: (+) right inguinal tenderness on deep palpation Back: no CVA tenderness Cervical Spine: Cervical spine tenderness Thoracic/Lumbar Spine: lumbar spinal tenderness Sacroiliac joints: bilaterally tender to palpation Skin Rashes: no rashes Extrem General: Yes no clubbing, cyanosis or edema Right upper extremity: shoulder/upper arm Details: tenderness Location: of the A-C joint; no swelling and wrist Details: tenderness and Phalen's negative Left upper extremity: wrist ((+) mild tenderness - (-) Phalen's) and hand Details: normal to inspection (but (+) tremors noted) Right lower extremity: foot Details: tenderness Location: of the great toe Location: at the MTP joint Left lower extremity: foot Details: tenderness Location: of another digit L ocation: the 2nd digit Results Reviewed Results Reviewed: Laboratory Tests 08/06/25 08/06/25 10:14 10:26 WBC 5.6 Hgb 13.1 Hct 39.9 Plt Count 314 Sodium 143 Potassium 4.2 Creatinine 0.60 Estimated GFR > 60 Fasting Glucose 94 Calcium 8.9 AST 26 ALT 25 Triglycerides 57 Cholesterol 184 LDL Cholesterol, Calc 104 H HDL Cholesterol 69 25-OH Vitamin D Total 39.7 TSH 2.39 Ur Specific [place] 1.020 Urine Protein Negative Urine Glucose (UA) Negative Urine Blood Negative Urine Nitrite Negative Ur Leukocyte Esterase Trace H Coding Level of Care Code Est Pt Level 4 (87959) Diagnoses Pain in toe of left foot M79.675 Bunion, right foot M21.611 Other acute sinusitis, recurrence not specified J01.80 Sinusitis location: other Chronicity: acute Recurrence: not specified as recurrent Diarrhea, unspecified type R19.7 Diarrhea type: unspecified type Celiac disease/sprue K90.0 Gastritis without bleeding, unspecified chronicity, unspecified gastritis type K29.70 Chronicity: unspecified Gastritis bleeding: without bleeding Gastritis type: unspecified gastritis Contracture of muscle, left hand M62.442 Tremor of left hand R25.1 Migraine without status migrainosus, not intractable, unspecified migraine type G43.909 Intractability: not intractable Migraine type: unspecified Status migrainosus presence: without status migrainosus Pure hypercholesterolemia E78.00 Mitral valve prolapse I34.1 Allergic rhinitis, unspecified seasonality, unspecified trigger J30.9 Allergic rhinitis seasonality: unspecified Allergic rhinitis trigger: unspecified Fibromyalgia M79.7 Lumbar degenerative disc disease M51.36 Cervicalgia M54.2 Primary osteoarthritis, unspecified site M19.91 Osteoarthritis location: unspecified site Osteoarthritis of right shoulder, unspecified osteoarthritis type M19.011 Osteoarthritis type: unspecified Paresthesia of hand, bilateral R20.2 Restless leg syndrome G25.81 Insomnia, unspecified type G47.00 Insomnia type: unspecified Episode of recurrent major depressive disorder, unspecified depression episode severity F33.9 Active/Remission status: currently active Major depression episode severity: unspecified Obesity (BMI 30-39.9) E66.9 Additional Codes PHQ-9 - 65500 - PHQ-9 Billing: Yes ([id number]) Assessment & Plan Assessment & Plan (1) Pain in toe of left foot: Code(s): M79.675 - Pain in left toe(s) Category: Medical Plan: S/P trauma Will send patient for x-rays of the left second toe LIAN for further evaluation (2) Bunion, right foot: Code(s): M21.611 - Bunion of right foot Category: Medical Plan: Patient feels that her right foot bunion has been getting worse lately Will refer her to podiatry for further evaluation and management (3) Sinusitis: Code(s): J32.9 - Chronic sinusitis, unspecified Category: Medical Qualifiers: Sinusitis location: other Chronicity: acute Recurrence: not specified as recurrent Qualified Code(s): J01.80 - Other acute sinusitis Plan: Patient recalls being started on Levofloxacin at the walk-in clinic for a sinus infection a few months ago and that it worked very well for her Have advised patient that Levofloxacin is not really recommended as first-line treatment for sinus infection and taking Levofloxacin often can potentially affect her renal function as well as increase her risk of tendon rupture Will go ahead and start her on cefuroxime 500 mg BID x 7 days (4) Frequent loose stools: Code(s): R19.7 - Diarrhea, unspecified Category: Medical Qualifiers: Diarrhea type: unspecified type Qualified Code(s): R19.7 - Diarrhea, unspecified Plan: (+) Hx of celiac disease Per request, will refer patient to GI (Dr. Rebollar) for further evaluation and management (5) Celiac disease/sprue: Code(s): K90.0 - Celiac disease Category: Medical Plan: (+) Hx of celiac disease Patient's labs done a couple of years ago still showed the presence of anti- Gliadin and transglutaminase IgA antibodies consistent with celiac disease Reinforced strict compliance with a gluten free diet (6) Gastritis: Code(s): K29.70 - Gastritis, unspecified, without bleeding Category: Medical Qualifiers: Chronicity: unspecified Gastritis bleeding: without bleeding Gastritis type: unspecified gastritis Qualified Code(s): K29.70 - Gastritis, unspecified, without bleeding Plan: EGD done in 2019 revealed (+) gastric erythema, duodenal erosion with strictures; biopsies came back negative for malignancies Patient had repeat EGD? with dilation of strictures done a couple of years later in 2021 Continue Omeprazole 20 mg QD Follow-up with GI as scheduled (7) Contracture of muscle, left hand: Code(s): M62.442 - Contracture of muscle, left hand Category: Medical Plan: Per request, will refer patient again to Dr. Lanza as she is hoping to get started on the Botox injection that was previously planned a couple of years ago but which was never implemented (8) Tremor of left hand: Code(s): R25.1 - Tremor, unspecified Category: Medical Plan: She was advised that her EMG & NCV from December 2022 came out normal Follow up with neurology as scheduled States that botox injection was originally planned for the dystonia on her upper extremities but she could not afford the co-pay that she had to pay out of pocket but she now wants to revisit this - referral to neurology placed, per her request (9) Migraine: Code(s): G43.909 - Migraine, unspecified, not intractable, without status migrainosus Category: Medical Qualifiers: Intractability: not intractable Migraine type: unspecified Status migrainosus presence: without status migrainosus Qualified Code(s): G43.909 - Migraine, unspecified, not intractable, without status migrainosus Plan: Stable/controlled -? reinforced avoidance of migraine triggers Continue Sumatriptan 100 mg once a day as needed and Fiorinal capsules 50-325-40 mg 1 capsule every 6-8 hours as needed Follow up with neurology as scheduled (10) Pure hypercholesterolemia: Code(s): E78.00 - Pure hypercholesterolemia, unspecified Category: Medical Plan: Results of her labs done a couple of weeks ago reviewed and discussed with jose guadalupe ent Reinforced low cholesterol diet Continue Atorvastatin 10 mg QD Will recheck her labs and fasting lipids in 4 months for follow up (11) Mitral valve prolapse: Comment: Echocardiogram done in December 2019 showed (+) mild MVP, mild to moderate TR; LV systolic function is low normal with LVEF of around 50-55% Code(s): I34.1 - Nonrheumatic mitral (valve) prolapse Category: Medical Plan: Follow up with cardiology as scheduled for continuing surveillance Will now send patient for an updated echocardiogram LIAN (12) Allergic rhinitis: Code(s): J30.9 - Allergic rhinitis, unspecified Category: Medical Qualifiers: Allergic rhinitis seasonality: unspecified Allergic rhinitis trigger: unspecified Qualified Code(s): J30.9 - Allergic rhinitis, unspecified Plan: Continue Fluticasone 50 mcg nasal spray QD PRN (13) Fibromyalgia: Code(s): M79.7 - Fibromyalgia Category: Medical Plan: Continue Lyrica 75 mg BID She is encouraged again to continue with regular exercises to help manage her fibromyalgia symptoms better (14) Lumbar degenerative disc disease: Comment: Grade 1-2 anterolisthesis L5/S1 with moderate to severe bilateral L5 foraminal narrowing Code(s): M51.36 - Other intervertebral disc degeneration, lumbar region Category: Medical Plan: Reinforced activity and weight-lifting restrictions She was going to [facility] for facet injections and pain management in the past but is now seeing [facility] She has had several injections into her lower back over the past year but did not seem to have responded much to them so far although she has been receiving trigger point injections into her lower back with some relief recently She also recently underwent L5-S1 basivertebral nerve ablation done with pain management a few months ago but unfortunately did not respond effectively to the treatment She was recently referred by pain management to Dr. Erickson for further evaluation and she recently underwent L4-5, L5-S1 ALIF - procedure on 07/14/2024 - she now feels that the surgery has helped a lot Follow up with neurosurgery as scheduled Continue Tramadol 50 mg 2 tablets every 6 hours as needed, Lidocaine patch 5% 1 patch for 12 hours daily as needed and Metaxalone 800 mg TID PRN Follow up with pain management as scheduled (15) Cervicalgia: Code(s): M54.2 - Cervicalgia Category: Medical Plan: Follow up with [facility] [place] [facility] as scheduled She has been seen by Dr. Erickson for this as well and was advised that her cervical spine MRI done in February 2024 revealed no acute neurologic impingement and there are no surgical indications for her neck at the time (16) Primary osteoarthritis: Code(s): M19.91 - Primary osteoarthritis, unspecified site Category: Medical Qualifiers: Osteoarthritis location: unspecified site Qualified Code(s): M19.91 - Primary osteoarthritis, unspecified site Plan: Continue OTC Tylenol PRN for pain; Tramadol also helps She was taking NSAIDs in the past but was advised to stop last year when she was diagnosed with gastritis (17) Degenerative joint disease of shoulder, right: Code(s): M19.011 - Primary osteoarthritis, right shoulder Category: Medical Qualifiers: Osteoarthritis type: unspecified Qualified Code(s): M19.011 - Primary osteoarthritis, right shoulder Plan: Right shoulder x-rays done a few months ago revealed (+) advanced degenerative changes with narrowing of the subacromial space concerning for rotator cuff pathology Follow up with orthopedics as scheduled (18) Paresthesia of hand, bilateral: Code(s): R20.2 - Paresthesia of skin Category: Medical Plan: (+) Hx of CTS Repeat EMG & NCV done in December 2022 came out NORMAL (19) Restless leg syndrome: Code(s): G25.81 - Restless legs syndrome Category: Medical Plan: Continue Ropinirole 0.5 mg Q HS - symptoms have been well-controlled on her current Rx (20) Insomnia: Code(s): G47.00 - Insomnia, unspecified Category: Medical Qualifiers: Insomnia type: unspecified Qualified Code(s): G47.00 - Insomnia, unspecified Plan: Sleep hygiene reinforced Continue Zolpidem ER 12.5 mg Q HS PRN (21) Major depression, recurrent: Code(s): F33.9 - Major depressive disorder, recurrent, unspecified Category: Medical Qualifiers: Active/Remission status: currently active Major depression episode severity: unspecified Qualified Code(s): F33.9 - Major depressive disorder, recurrent, unspecified Plan: Continue Venlafaxine ER 150 mg QD (22) Obesity (BMI 30-39.9): Code(s): E66.9 - Obesity, unspecified Category: Medical Plan: Reinforced diet; exercise and weight loss are unrealistic expectations at present due to patient's numerous physical issues and comorbidities She has tried getting on a FLP-1 recently to help her lose weight but her insu [place] would not cover the Rx Will refer her to weight management at this time, per her request Plan Follow up in 4 months Orders: Orders CA echo transthoracic complete 08/17/25 I34.1 - Nonrheumatic mitral (valve) prolapse XR toe LT min 2V 08/20/25 M79.675 - Pain in left toe(s) Lipid Panel 4 Months E78.00 - Pure hypercholesterolemia, unspecified Complete Blood Count Auto Diff 4 Months D64.9 - Anemia, unspecified Comprehensive [place]. Panel Fast 4 Months E78.00 - Pure hypercholesterolemia, unspecified Referrals Podiatry Referral M21.611 - Bunion of right foot Medical Weight Management Referral E66.9 - Obesity, unspecified Medications: New cefuroxime axetil 500 mg PO BID 14 tabs 0RF 7 days Refilled tramadol 100 mg (2 x 50 mg) PO Q6H 48 days PRN 240 tabs 0RF pain M19.91 - Primary osteoarthritis, unspecified site
--- OUTSIDE RECORDS SUMMARY | 2025-08-17 13:02 | XMS_ITS | Clinical Summary ---
Author Organization [facility] Address [address] [place] [address] Phone Care Team Providers Care Feed Mill Supervisor Name Role Phone Osmany Browning MD Primary [...] age to complete this topic Insurance MEDICARE [facility] Care Teams Feed Mill Supervisor Relationship Specialty Start Date End Date Osmany Browning MD [address] [place] [address] [address] Bro PCP - General Internal Medicine 12/08/24
== END 2025-08-17 11:41 | disposition home or self-care (01) ==
LOC: HO.HMCH 10:55
PROVIDERS: PCP Internal Medicine; Visit Provider Internal Medicine
DX: M79.675 Pain in left toe(s) (principal); M21.611 Bunion of right foot; J01.80 Other acute sinusitis; R19.7 Diarrhea, unspecified; K90.0 Celiac disease; K29.70 Gastritis, unspecified, without bleeding; M62.442 Contracture of muscle, left hand; R25.1 Tremor, unspecified; G43.909 Migraine, unspecified, not intractable, without status migrainosus; E78.00 Pure hypercholesterolemia, unspecified; I34.1 Nonrheumatic mitral (valve) prolapse; J30.9 Allergic rhinitis, unspecified

== ENCOUNTER → 2025-08-17 10:54 | Outpatient (BNVA) | payer MEDICARE, BC, SELFPAY | PROVIDERS: PCP Internal Medicine; Visit Provider Internal Medicine | DX: M79.675 Pain in left toe(s) (principal); M21.611 Bunion of right foot; J01.80 Other acute sinusitis; R19.7 Diarrhea, unspecified; K29.70 Gastritis, unspecified, without bleeding; M62.442 Contracture of muscle, left hand; R25.1 Tremor, unspecified; G43.909 Migraine, unspecified, not intractable, without status migrainosus; E78.00 Pure hypercholesterolemia, unspecified; I34.1 Nonrheumatic mitral (valve) prolapse; J30.9 Allergic rhinitis, unspecified; M79.7 Fibromyalgia; M51.369 Other intervertebral disc degeneration, lumbar region without mention of lumbar back pain or lower extremity pain; M54.2 Cervicalgia; M19.91 Primary osteoarthritis, unspecified site; M19.011 Primary osteoarthritis, right shoulder; R20.2 Paresthesia of skin; G56.81 Other specified mononeuropathies of right upper limb; G47.00 Insomnia, unspecified; F33.9 Major depressive disorder, recurrent, unspecified; E66.9 Obesity, unspecified; Z68.38 Body mass index [BMI] 38.0-38.9, adult; Z71.3 Dietary counseling and surveillance | CPT/HCPCS: 96127; 99212 ==

== ENCOUNTER 2025-08-20 13:22 | Outpatient (REF) | payer MEDICARE, BC, SELFPAY ==
--- NOTE | ~2025-08-20 | XR_ITS ---
EXAMINATION: XR TOES, LEFT CLINICAL INFORMATION: M79.675 - Pain in left toe(s) . Second toe pain and swelling, status post trauma. COMPARISON: None available. TECHNIQUE: 3 views of the left toes were obtained. FINDINGS: Second toe: Small ossification along the lateral proximal aspect of the middle phalanx, concerning for a mildly displaced intra-articular fracture.. Soft tissue swelling. No additional acute fracture is seen. Status post internal fixation with hardware extending across the first tarsometatarsal joint. Advanced tarsometatarsal joint arthritis. Hallux valgus, first MTP arthritis. Mild arthritis in some of the interphalangeal joints of the toes. XR/XR toe LT min 2V IMPRESSION: Mildly displaced intra-articular fracture of the lateral proximal aspect of the second middle phalanx. Soft tissue swelling Electronically signed by: Gary Ferro MD 08/20/2025 05:09 PM EST
--- OUTSIDE RECORDS SUMMARY | 2025-08-20 19:42 | XMS_ITS | Clinical Summary ---
Author Organization [address] [facility] Address [address] [place] [address] Phone Care Team Providers Care Water Server Name Role Phone Osmany Browning MD Primary [...] age to complete this topic Insurance MEDICARE [facility] Care Teams Water Server Relationship Specialty Start Date End Date Osmany Browning MD [address] [place] [address] [address] PCP - General Internal Medicine 12/08/24
--- OUTSIDE RECORDS SUMMARY | 2025-08-20 19:42 | XMS_ITS | Clinical Summary ---
Author Organization [facility] Facility Address [address] [place] [id number] Care Team Providers Care Folded Towel Machine Operator Name Role Phone Unavailable Primary [...] patient's age to complete this topic Insurance [facility] ([id number]) Medicare
== END 2025-08-20 13:23 | disposition home or self-care (01) ==
LOC: HO.XRAY 13:22
PROVIDERS: PCP Internal Medicine; Visit Provider Internal Medicine
DX: M79.675 Pain in left toe(s) (principal)
CPT/HCPCS: 73660

== ENCOUNTER → 2025-08-20 13:29 | Outpatient (BNV) | payer MEDICARE, BC, SELFPAY | PROVIDERS: PCP Internal Medicine; Visit Provider Radiology Diagnostic Ultrasound | DX: S92.522A Displaced fracture of middle phalanx of left lesser toe(s), initial encounter for closed fracture (principal) | CPT/HCPCS: 73660 ==

== ENCOUNTER 2025-09-03 10:44 | Outpatient (REF) | payer MEDICARE, BC, SELFPAY ==
--- NOTE | ~2025-09-03 | XR_ITS ---
EXAMINATION: XR HAND 3 OR MORE VIEWS LEFT XR WRIST NAVICULAR LEFT CLINICAL INFORMATION: W19.XXXA - Unspecified fall, initial encounter COMPARISON: None TECHNIQUE: PA, lateral, oblique, and scaphoid views of the left hand and wrist. FINDINGS: Negative ulnar variance. No dislocation. Chronic deformity of the distal radius and distal ulna suggestive of remote trauma. No acute fractures. Mild arthritic changes at the first carpometacarpal joint. No abnormal calcifications or radiopaque foreign body in the overlying soft tissues. XR/XR hand LT min 3V IMPRESSION: No acute fracture or dislocation of the hand/wrist. Electronically signed by: Nato Stokes MD 09/03/2025 12:12 PM SONY
--- NOTE | ~2025-09-03 | XR_ITS ---
EXAMINATION: XR HAND 3 OR MORE VIEWS LEFT XR WRIST NAVICULAR LEFT CLINICAL INFORMATION: W19.XXXA - Unspecified fall, initial encounter COMPARISON: None TECHNIQUE: PA, lateral, oblique, and scaphoid views of the left hand and wrist. FINDINGS: Negative ulnar variance. No dislocation. Chronic deformity of the distal radius and distal ulna suggestive of remote trauma. No acute fractures. Mild arthritic changes at the first carpometacarpal joint. No abnormal calcifications or radiopaque foreign body in the overlying soft tissues. XR/XR wrist LT w scaphoid IMPRESSION: No acute fracture or dislocation of the hand/wrist. Electronically signed by: Nato Stokes MD 09/03/2025 12:12 PM SONY
== END 2025-09-03 10:45 | disposition home or self-care (01) ==
LOC: HO.HMGCX 10:44
PROVIDERS: PCP Internal Medicine; Visit Provider Physician Assistant
DX: S63.602A Unspecified sprain of left thumb, initial encounter (principal); M25.532 Pain in left wrist; J01.90 Acute sinusitis, unspecified; Z77.22 Contact with and (suspected) exposure to environmental tobacco smoke (acute) (chronic); W19.XXXA Unspecified fall, initial encounter
CPT/HCPCS: 73110; 73130; 99212

== ENCOUNTER 2025-09-03 10:44 | Outpatient (AMB) | payer MEDICARE, BC, SELFPAY ==
--- OUTSIDE RECORDS SUMMARY | 2025-09-03 10:45 | XMS_ITS | Clinical Summary ---
Author Organization 175 [facility] Address [address] [place] [address] Phone Care Team Providers Care Printing Screen Assembler Name Role Phone Osmany Browning MD Primary Care Provider [phone] Allergies Active Allergy Reactions Criticality Noted Date [...] age to complete this topic Insurance MEDICARE [facility] Care Teams Printing Screen Assembler Relationship Specialty Start Date End Date Osmany Browning MD [address] [place] [address] [address] PCP - General Internal Medicine 12/08/24
--- OUTSIDE RECORDS SUMMARY | 2025-09-03 10:45 | XMS_ITS | Clinical Summary ---
Author Organization [facility] Facility Address [address] [place] [id number] Care Team Providers Care Sugar Cane Grower Name Role Phone Unavailable Primary Care Provider [...] patient's age to complete this topic Insurance [facility] ([id number]) Medicare
--- NOTE | 2025-09-03 11:16 | MHC.OFFWIV ---
Intake Vital Signs 09/03/25 11:17 Height 5 ft 2 in Weight 213 lb BMI 39.0 BP 112/70 Blood Pressure Location Rt brachial Position Sitting Pulse 79 Pulse Source Pulse Oximeter Temp 98.8 F Temp Source Oral Pulse Oximetry (%) 95 Oxygen Delivery Method Room Air Intake Visit Reasons: ep left pain from fall Intake Note: pt presents with left wrist pain after a fall a month ago, also c/o bilateral ear pain RT > LT s/p tx for ear infection Patient Tobacco Use Status: Never used Tobacco Allergies Sulfa (Sulfonamide Antibiotics) (SULFA (SULFONAMIDE ANTIBIOTICS)) Allergy (Severe, Verified 09/03/25 11:29) ANAPHYLAXIS Penicillins (PENICILLINS) Allergy (Mild, Verified 09/03/25 11:29) RASH latex Adverse Reaction (Severe, Verified 09/03/25 11:29) Rash doxycycline Adverse Reaction (Mild, Verified 09/03/25 11:29) Abdominal Pain Do you need a note to return to daycare/school/sports/work: No HPI HPI Comments History of Present Illness Details History of Present Illness - The patient is a 69 year old individual presenting for evaluation of left wrist pain and persistent sinus symptoms. - The patient reports a fall about three weeks ago after tripping on a dog bone, which resulted in a broken toe on the left foot, confirmed by an X-ray ordered by her PCP. - Although the wrist did not hurt at the time of the fall, the patient has developed sharp pain and significant swelling in the left wrist over the past week. - The pain is localized from the base of the thumb into the wrist and sometimes radiates up toward the elbow. - Separately, the patient complains of persistent sinus and ear symptoms following a recent sinus infection for which her PCP prescribed antibiotics. - The patient continues to experience sinus pressure without drainage and discomfort primarily in the right ear. - The patient uses Flonase at night for allergies, a nasal spray for sinus pressure during the day, and occasionally saline for nasal cleaning, in addition to taking a daily allergy pill. Review of Systems - Musculoskeletal: Reports sharp pain and significant swelling in the left wrist, localized to the base of the thumb, which is exacerbated by movement. - HEENT: Reports sinus pressure, a feeling of unresolved sinus infection, and discomfort in the right ear. - Denies significant nasal drainage. - Neurological: Denies paresthesia in the hands. All systems reviewed and are unremarkable except as noted in HPI Physical Exam General: Cooperative, healthy appearing, comfortable, no acute distress and well developed Orientation: Patient oriented x3 Limitations: No limitations Head: Normal to inspection Ears: Right ear slightly red, no infection noted Nose: Normal External nose present Face and sinus: Sinus pressure noted, history of sinus infection Eyes: Appearance normal, both eyes and all related structures Neck: Normal visual inspection and Yes full ROM Respiratory: Normal respiratory effort and able to speak in complete sentences. Skin: No rashes or lesions noted Neuro: Patient oriented x3 Extremities: left elbow with full ROM, no ttp medial or lateral epicondyle. Left wrist with full ROM, base of left thumb with edema and ttp, full range of motion of fingers, and thumb, but noted pain upon movement. [facility] Medical History Degenerative joint disease of shoulder, right Osteoarthritis Arthritis Back pain Celiac sprue GERD (gastroesophageal reflux disease) Anxiety Numbness Sepsis Sleep apnea Sacroiliac dysfunction Migraine Burn injury Sinusitis chronic, frontal Osteopenia Obesity (BMI 30-39.9) Major depression, recurrent Insomnia Primary osteoarthritis Urinary frequency Mitral valve prolapse Allergic rhinitis Gastritis Pure hypercholesterolemia Restless leg syndrome Cervicalgia Lumbar degenerative disc disease Fibromyalgia Surgical History History of lumbar spinal fusion History of bilateral knee arthroplasty Hx of eye surgery History of cataract surgery History of carpal tunnel release History of bunionectomy S/P GINGER-BSO (total abdominal hysterectomy and bilateral salpingo-oophorectomy) History of repair of rotator cuff History of arthroscopy of both knees Hx of cholecystectomy Hx of endoscopy History of colonoscopy Family History Father History of cancer Mother History of cancer History of high blood pressure Hx of diabetes mellitus Social History Household Members: Significant Other Household Members Other:: DAUGHTER AND HER FAMILY Housing: House Are you a primary student career development specialist to a significant other at home: No Do you presently have visiting nurse or other home services: No Alcohol intake: current Alcohol intake frequency: holidays/special occasions only Patient Tobacco Use Status: Never used Tobacco Tobacco use type: Cigarette e-Cigarette/Vaping Use: Never Used Second Hand Smoke Exposure: Yes service: No Current occupational status: retired Cognitive needs: No Hearing needs: No Vision needs: Yes Review of Systems Const All systems reviewed & are unremarkable except as noted in HPI and below Physical Exam Vital Signs: Last Vital Signs Temp 98.8 F 09/03/25 11:17 Pulse 79 09/03/25 11:17 BP 112/70 09/03/25 11:17 Pulse Ox 95 09/03/25 11:17 Oxygen Delivery Method Room Air 09/03/25 11:17 BMI result Body Mass Index 39.0 Assessment & Plan Assessment & Plan (1) Fall: Code(s): W19.XXXA - Unspecified fall, initial encounter Qualifiers: Encounter type: subsequent encounter Qualified Code(s): W19.XXXD - Unspecified fall, subsequent encounter Plan: Patient was informed and verbally consented to the use of an ambient scribe for clinic note documentation during this visit. Left Wrist/hand pain and edema - The patient presents with delayed-onset pain and significant swelling in the left wrist following a fall three weeks ago. - An X-ray of the left wrist and hand is ordered to evaluate for occult fracture or other injury. - My interpretation of XR's are no fracture or dislocation of any bones of the hand or wrist. Likely a sprain. - RICE and support brace given. - If pain continues, important to follow up with PCP for possible referral to Hand Ortho. (2) Acute sinusitis: Code(s): J01.90 - Acute sinusitis, unspecified Qualifiers: Recurrence: not specified as recurrent Sinusitis location: unspecified location Qualified Code(s): J01.90 - Acute sinusitis, unspecified Plan: Sinusitis - The patient has persistent sinus pressure and right ear discomfort, likely from a viral infection and retained middle ear fluid, as examination reveals no signs of a bacterial infection. - Recommended to increase Flonase to twice daily temporarily to help drain fluid and use a Neti pot rinse to help clear the sinuses. - The patient should continue taking a daily allergy pill. (3) Sprain of hand, thumb, left: Code(s): S63.602A - Unspecified sprain of left thumb, initial encounter Qualifiers: Encounter type: initial encounter Sprain of finger site: metacarpophalangeal joint Qualified Code(s): S63.642A - Sprain of metacarpophalangeal joint of left thumb, initial encounter Plan: as above Orders: Orders XR hand LT min 3V Today M25.532 - Pain in left wrist, M79.642 - Pain in left hand, W19.XXXA - Unspecified fall, initial encounter XR wrist LT w scaphoid Today M25.532 - Pain in left wrist, M79.642 - Pain in left hand, W19.XXXA - Unspecified fall, initial encounter Coding Level of Care Code Est Pt Level 4 (69496) Diagnoses Fall, subsequent encounter W19.XXXD Encounter type: subsequent encounter Acute sinusitis, recurrence not specified, unspecified location J01.90 Recurrence: not specified as recurrent Sinusitis location: unspecified location Sprain of metacarpophalangeal (MCP) joint of left thumb, initial encounter S63.642A Encounter type: initial encounter Sprain of finger site: metacarpophalangeal joint
[2025-09-03 11:17] VITALS: BP 112/70; PULSE 79; TEMP 37.1; O2SAT 95; BMI 39.0
== END 2025-09-03 12:13 | disposition home or self-care (01) ==
PROVIDERS: PCP Internal Medicine; Visit Provider Physician Assistant
DX: W19.XXXD Unspecified fall, subsequent encounter (principal); J01.90 Acute sinusitis, unspecified; S63.642A Sprain of metacarpophalangeal joint of left thumb, initial encounter

== ENCOUNTER → 2025-09-03 11:42 | Outpatient (BNV) | payer MEDICARE, BC, SELFPAY | PROVIDERS: PCP Internal Medicine; Visit Provider Radiology Body Imaging | DX: Z04.3 Encounter for examination and observation following other accident (principal) | CPT/HCPCS: 73110; 73130 ==

== ENCOUNTER 2025-09-13 08:58 | Outpatient (AMB) | payer MEDICARE, BC, SELFPAY ==
--- NOTE | 2025-09-13 09:01 | A.SPINEOV_ITS ---
Intake Visit Reasons: 1 year f/up with CT Intake Note: Ms. Hdz is here today for her 1 year F/u and results to her CT. 411 Directory Assistance Operator Required: No Allergies Sulfa (Sulfonamide Antibiotics) (SULFA (SULFONAMIDE ANTIBIOTICS)) Allergy (Severe, Verified 09/03/25 11:29) ANAPHYLAXIS Penicillins (PENICILLINS) Allergy (Mild, Verified 09/03/25 11:29) RASH latex Adverse Reaction (Severe, Verified 09/03/25 11:29) Rash doxycycline Adverse Reaction (Mild, Verified 09/03/25 11:29) Abdominal Pain Assessment & Plan Assessment & Plan (1) Lumbago: Code(s): M54.50 - Low back pain, unspecified Category: Medical Plan Procedure: L4-5, L5-S1 ALIF HPI: Laura is a pleasant 69 year old female who underwent L4-S1 ALIF with Dr. Erickson in July of 2024. She comes in today for her 1 year follow up. During her last office visit she reported good resolution of her preoperative pain and was very happy with her procedure. We obtained a CT scan 10 months out from surgery which shows excellent placement of her surgical construct with interbody osseous growth / fusion L4-S1. Unfortunately today Laura reports that she has been experiencing a new pain in her low back. She states that about 6 months ago she began feeling pain again in her low back in two spots that she is able to localize well. When describing her pain she places two fingers just below her incision sites on the left and right side of the spine. She does not feel any worsening pain when pressing down on these areas. She reports no increase of her pain with positional changes. Her pain is not any worse with ambulation vs. sitting. She reports that the pain has become fairly severe, rating it as an 8/10 throughout the day. She describes it as a deep dull pain without any current radiation of pain. She did state that about a month after the initial pain onset she had some associated lateral thigh pain that resolved after having a caudal epidural injection with our colleagues in pain management on 04/28/25. She has been taking Tramadol daily and utilizing lidocaine patches to help amado igate this. Exam: On examination the patient is able to rise from a seated position without difficulty. Her gait is non-spastic and non-antalgic. Her lower extremity strength is normal. Her incisions are closed and well healed. She points directly below her bilateral incisions when asked to localize her pain. (-) Bilateral lisa's. (-) Bilateral straight leg raise. Plan: Pleasant 69 year old female who underwent L4-S1 ALIF with Dr. Erickson in July of 2024. She reported very good resolution of her pain within about 2.5 months after surgery. She was completing regular activity without issue. Unfortunately she had a fairly significant flare up of low back pain about 6 months ago as described above. I initially thought this may simply be related to SI joint dysfunction, however the patient has no pain with positional changes, and has (-) Lisa's on exam. I reviewed recent pain management notes and they are scheduling her for SIJ injections pending insurance authorization. I think this would be a good place to start. We also discussed the possibility of this being related to the instrumentation causing low back irritation / pain. While waiting for her SIJ injection she would like to follow up with Dr. Erickson to see if he recommends any additional imaging of her low back, and to further discuss if he thinks this type of pain could be related to her instrumentation. Blayne Erickson MD,PhD [facility] Coding Level of Care Code Est Pt Level 2 (19112) Diagnoses Lumbago M54.50
== END 2025-09-13 09:30 | disposition home or self-care (01) ==
LOC: HO.HNS 08:59
PROVIDERS: PCP Internal Medicine; Visit Provider Physician Assistant
DX: M54.50 Low back pain, unspecified (principal)
CPT/HCPCS: 99212

== ENCOUNTER → 2025-09-13 08:58 | Outpatient (BNVA) | payer MEDICARE, BC, SELFPAY | PROVIDERS: PCP Internal Medicine; Visit Provider Physician Assistant | DX: M54.50 Low back pain, unspecified (principal); Z98.1 Arthrodesis status | CPT/HCPCS: 99212 ==